=== PATIENT | female | born 1960 | race Caucasian/White ===

== ENCOUNTER 2024-08-27 20:08 | Emergency (ER) | payer MEDICAID, SELFPAY ==
[2024-08-27 20:11] VITALS: PULSE 118; RESP 22; O2SAT 97
[2024-08-27 20:17] VITALS: BP 150/89; PULSE 115; RESP 19; TEMP 36.8; O2SAT 91
--- NOTE | 2024-08-27 20:21 | XR_ITS ---
Examination: AP chest single view Technique one AP portable upright chest single view Exam date and time: August 27, 20242022 hrs. Comparison August 05, 2024 Indications: Onset shortness of breath today. Findings: Normal heart size The hilar regions are mildly prominent Accentuation bronchovascular markings at the lung bases No pulmonary edema Moderate osteopenia Impression: Suspicious for pulmonary artery hypertension Bibasilar bronchitis Advise short-term follow-up chest imaging
--- NOTE | 2024-08-27 20:21 | EKG_ITS ---
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
--- NOTE | 2024-08-27 21:09 | EDNOTE_ITS ---
ED SOB =RME/HPI General Chief Complaint: Shortness of Breath/Dyspnea Stated Complaint: SOB Time Seen by Provider: 08/27/24 21:08 Arrival date/time: 08/27/24 20:08 RME / HPI RME / HPI Narrative: DR. POND MAIN ED EVALUATION: 64 year old female presents to the Emergency Department [facility] from home with complaint of shortness of breath. Symptoms are moderate. Patient denies any chest pain or other symptoms at this time. PMHx: COPD, CHF, hypertension, atrial fibrillation, asthma, hypercholesterolemia, and diabetes. Social Hx: Former smoker. No alcohol or substance use. Related Data Home Medications ?Medication ?Instructions ?Recorded ?Confirmed methadone 10 mg/5 mL oral solution 100 mg PO QDAY 02/07/24 08/04/24 nitroglycerin 0.4 mg sublingual 0.4 mg buccal Q5MIN PRN Chest Pain 02/07/24 08/04/24 tablet spironolactone 50 mg tablet 50 mg PO QDAY 03/31/24 08/04/24 Previous Rx's ?Medication ?Instructions ?Recorded tramadol 50 mg tablet 50 mg PO Q8H PRN pain #20 tabs 04/06/24 albuterol sulfate 90 mcg/actuation 1 puff inhalation QID PRN 08/06/24 aerosol inhaler shortness of breath or wheezing #8.5 grams aspirin 81 mg tablet,delayed 81 mg PO QDAY #30 tabs 08/06/24 release buspirone 5 mg tablet 5 mg PO QDAY #30 tabs 08/06/24 fluticasone fur. 200 mcg-umeclid 1 inh inhalation QDAY #60 ea 08/06/24 62.5 mcg-vilant 25 mcg inhalat.powder (Trelegy Ellipta) furosemide 20 mg tablet (Lasix) 20 mg PO QAM #30 tabs 08/06/24 hydralazine 100 mg tablet 100 mg PO TID #90 tabs 08/06/24 lactulose 10 gram/15 mL oral 10 g (15 mL) PO QDAY PRN 08/06/24 solution constipation #3,785 mL lidocaine 5 % topical patch 1 patch topical QDAY #30 ea 08/06/24 nitroglycerin 0.4 mg sublingual See Rx Instructions .Route 08/06/24 tablet .COMPLEX PRN chest pain #30 tabs spironolactone 50 mg tablet 50 mg PO QDAY #30 tabs 08/06/24 tramadol 50 mg tablet 50 mg PO Q6H PRN pain #20 tabs 08/06/24 apixaban 5 mg (74 tabs) tablets in 5 mg PO BID #74 tabs 08/07/24 a dose pack (EliSelenokhod DVT-PE Treat 30D Start) doxycycline hyclate 100 mg capsule 100 mg PO BID #6 caps 08/07/24 insulin glargine 100 unit/mL (3 26 unit (0.26 mL) subcut QPM #15 mL 08/07/24 mL) subcutaneous pen (Basaglar KwikPen U-100 Insulin) metoprolol succinate 25 mg 25 mg PO QDAY 30 days #30 tabs 08/07/24 tablet,extended release 24 hr doxycycline monohydrate 100 mg 100 mg PO BID #10 caps 08/28/24 capsule Allergies Allergy/AdvReac Type Severity Reaction Status Date / Time codeine Allergy Severe RASH Verified 08/02/24 06:24 diphenhydramine HCl Allergy Severe Hives Verified 08/02/24 06:24 egg Allergy Severe Rash Verified 08/02/24 06:24 Penicillins Allergy Severe SWELLING, Verified 08/02/24 06:24 RESP DISTRESS pentazocine [From Evaristo] Allergy Severe Hives Verified 08/02/24 06:24 Review of Systems Review of Systems Systems Reviewed: All systems reviewed, normal except as documented Narrative Review of Systems: GEN: No fever, no chills, no weight loss EYES: No discharge, no visual changes, no pain HEENT: No ear pain, no congestion, no sore throat PULM: + shortness of breath, no cough, no congestion CV: No chest pain, no dyspnea on exertion, no palpitations GI: No nausea, no vomiting, no diarrhea, no pain, no constipation : No frequency, no urgency and no dysuria MUSC/SKEL: No joint pain, no back pain SKIN: No rash PSYCH: No hallucinations, no depression HEME/LYMPH: No easy bleeding or bruising tendencies NEURO: No weakness, no headache Past Medical History Past Medical History NEUROLOGIC: Positive Neurological Disorders and Cerebrovascular Accident CARDIAC: Positive Cardiac Disorders, Myocardial Infarction, Cardiac Arrhythmia, Atrial Fibrillation, Angina, Hypercholesterolemia, Congestive Heart Failure, Edema and Hypertension RESPIRATORY: Positive Chronic Obstructive Pulmonary Disease (COPD), Asthma, Bronchitis, Emphysema and Pneumonia MUSCULOSKELETAL: Positive Musculoskeletal Disorders and Arthritis ENT: Positive Cataracts and Blind ENDOCRINE: Positive Endocrine Disorders and Diabetes Mellitus Type 2 HEMATOLOGIC: Positive Anemia PSYCHO/SOCIAL: Positive Recreational Drug Use, Depression and Anxiety OTHER HISTORY: Positive Hospitalization and Shingles Family History FAMILY HISTORY: Positive Family Cardiac Disorders Surgical History SURGICAL: Positive Eye Surgery, Tonsillectomy and Abdominal Surgery Social History SMOKING STATUS: Former smoker SECOND HAND EXPOSURE: No SUBSTANCE USE: former substance user, heroin and methamphetamine (Former drug use, states she quit 20 years ago; tested positive for methamphetamine 03/31/2023.) ALCOHOL: Never ED Exam Narrative Physical exam: GENERAL APPEARANCE: alert and oriented x 4, well-developed, well-nourished, no acute distress VITALS: All vitals were reviewed and the pulse ox is 94% on room air, which is normal according to my interpretation. HEENT: Normocephalic, atraumatic; pupils equal, round, reactive to light; EOMI; mucous membranes pink, moist; oropharynx clear NECK: Supple LUNGS: CTABL; no wheezes, no rales, no rhonchi HEART: Regular rate, regular rhythm; normal S1, S2; no murmurs ABDOMEN: non distended; normal BS; soft, no tenderness, no guarding, no rebound; no masses, no organomegaly, no hernia BACK: no CVA tenderness EXTREMITIES: atraumatic; no edema NEUROLOGIC: awake; alert and oriented x4; cranial nerves II-XII grossly intact; no focal sensory or motor deficits PSYCHIATRIC: appropriate mood and affect SKIN: warm, dry, normal color; no rashes Course Quality Measures none Orders Category Date Time Status License Registration Examiner NOW Care 08/28/24 02:38 Completed EKG (ED ONLY) *Do not use* NOW Care 08/27/24 20:22 Completed EKG (ED Only) Stat Exams 08/27/24 20:21 Draft XR chest 1V portable Stat Exams 08/27/24 20:21 Completed B-Type Natriuretic Peptide Stat Lab 08/28/24 03:30 Completed Blood Culture (Lab) Stat Lab 08/28/24 03:30 Completed CBC Stat Lab 08/28/24 03:30 Completed Comprehensive Metabolic Panel Stat Lab 08/28/24 03:30 Completed Lactate (Lactic Acid) Stat Lab 08/28/24 03:30 Completed Lipase Stat Lab 08/28/24 03:30 Completed Magnesium Stat Lab 08/28/24 03:30 Completed Partial Thromboplastin Time Stat Lab 08/28/24 03:30 Completed Procalcitonin Stat Lab 08/28/24 03:30 Completed Prothrombin Time with INR Stat Lab 08/28/24 03:30 Completed Troponin I Stat Lab 08/28/24 03:30 Completed ALBUTEROL RT 0.5ml [Proventil Rt 0.5ml] Med 08/27/24 22:15 Discontinued 10 mg INH X1 ONE Albuterol/Ipratr Rt Blanca [Duoneb Rt Blanca] Med 08/28/24 01:32 Discontinued 3 ml INH X1 ONE Ipratropium Snelling Rt Blanca [Atrovent Rt Blanca] Med 08/27/24 22:15 Discontinued 0.5 mg INH X1 ONE MethylPREDNISolone.* [SoluMEDROL Inj] Med 08/27/24 22:15 Discontinued 125 mg IVP X1 ONE Sodium Chloride Rt Blanca 0.9% [NS Rt Blanca 0.9%] Med 08/27/24 22:15 Discontinued 3 ml INH PRN PRN Sodium Chloride Rt Blanca 0.9% [NS Rt Blanca 0.9%] Med 08/27/24 22:15 Discontinued 3 ml INH PRN PRN dexAMETHasone TAB [dexAMETHasone Tab] Med 08/27/24 23:27 Discontinued 6 mg PO X1 ONE methylPREDNISolone Med 08/27/24 22:40 Discontinued 20 mg PO X1 ONE Vital Signs Vital signs: Vital Signs Temperature 98.2 F 08/27/24 20:17 Pulse Rate 115 H 08/27/24 20:17 Respiratory Rate 19 08/27/24 20:17 Blood Pressure 150/89 H 08/27/24 20:17 Pulse Oximetry (%) 91 L 08/27/24 20:17 Oxygen Delivery Method Nasal Cannula 08/27/24 20:17 Oxygen Flow Rate 3 08/27/24 20:17 Shortness of Breath / Dyspnea MDM Narrative MDM Narrative:: IVale am scribing for and in the presence of Dr. Pond. Patient data External records reviewed:: [facility] previous records (Reviewed last gastroenterology note by Dr. Ludwig, dated 08/07/24.) and EMS form Clinical information provided by:: patient and EMS Social determinants that could affect healthcare access:: other (specify) (Former smoker.) Patient has the following chronic illnesses:: COPD, CHF, hypertension, atrial fibrillation, asthma, hypercholesterolemia, and diabetes. How is presenting disease/condition affected by chronic disease/condition?: caused by Evaluation data The following diagnostics were reviewed and interpreted by me:: lab results, radiology exam(s) and EKG tracing(s) Lab and/or radiology exams considered but not ordered:: none Interpretation Summary: Procedure(s): XR chest 1V portable Accession Number(s): [id number] cc: Acosta Kumari MD; Socorro Pond MD~ Examination: AP chest single view Technique one AP portable upright chest single view Exam date and time: August 27, 20242022 hrs. Comparison August 05, 2024 Indications: Onset shortness of breath today. Findings: Normal heart size The hilar regions are mildly prominent Accentuation bronchovascular markings at the lung bases No pulmonary edema Moderate osteopenia Impression: Suspicious for pulmonary artery hypertension Bibasilar bronchitis Advise short-term follow-up chest imaging Dictated By: Acosta Kumari MD Medications / Prescriptions Medications or Prescriptions considered but not ordered:: none Medication administrations:: Medication Administration History Discontinued Medications Albuterol (Albuterol Rt 2.5 Mg/0.5 Ml Nebu) 10 mg INH X1 ONE Stop: 08/27/24 22:16 Last Admin: 08/27/24 22:34 Dose: 10 mg Documented By: NE Albuterol/Ipratropium (Albuterol/Ipratropium (Duoneb) Rt Blanca 3 Ml Nebu) 3 ml INH X1 ONE Stop: 08/28/24 01:33 Last Admin: 08/28/24 01:46 Dose: 3 ml Documented By: NE Dexamethasone (Dexamethasone 6 Mg Tablet) 6 mg PO X1 ONE; Protocol Stop: 08/27/24 23:28 Last Admin: 08/28/24 00:49 Dose: 6 mg Documented By: GB Ipratropium Snelling (Ipratropium Rt 0.5 Mg/ 2.5 Ml Nebu) 0.5 mg INH X1 ONE Stop: 08/27/24 22:16 Last Admin: 08/27/24 22:34 Dose: 0.5 mg Documented By: NE Methylprednisolone (Methylprednisolone 4 Mg Tablet) 20 mg PO X1 ONE Stop: 08/27/24 22:41 Last Admin: 12/02/24 23:28 Dose: Not Given Documented By: AVILA Non-Admin Reason: Cancelled by Provider Methylprednisolone Sodium Succinate (Methylprednisolone Sod Succ 62.5 Mg/Ml 2ml Vial) 125 mg IVP X1 ONE Stop: 08/27/24 22:16 Last Admin: 08/27/24 22:42 Dose: Not Given Documented By: AVILA Non-Admin Reason: Discontinued Sodium Chloride (Sodium Chloride Rt Blanca 0.9% 3 Ml Nebu) 3 ml INH PRN PRN PRN Reason: SOLN Stop: 09/26/24 22:14 Sodium Chloride (Sodium Chloride Rt Blanca 0.9% 3 Ml Nebu) 3 ml INH PRN PRN PRN Reason: SOLN Stop: 09/26/24 22:14 see above Consultations Consultation(s) initiated? (list below): No Diagnosis Shortness of Breath Differential Diagnosis: congestive heart failure, community acquired pneumonia, asthma with exacerbation, pulmonary embolism and other (COPD exacerbation) Most likely diagnosis given after review of the tests above:: Bronchitis, Acute exacerbation of chronic obstructive pulmonary disease (COPD) Admission Indicated Admission indicated?: not indicated Admission Request Was there a request for admission?: No Disposition Plan Disposition Plan: Discharge Discharge Attestation Discharge Attestation: The patient and all family members were given an opportunity to ask questions and understood the discharge instructions. Discharge instructions specifically effects, indications for sooner follow up or return to the emergency department, and the expected course of current diagnosis. Patient condition: Stable Discharge Plan Plan Patient Disposition: HOME (Self Care) Prescriptions/Referrals Prescriptions/Med Rec: New doxycycline monohydrate 100 mg capsule 100 mg PO BID Qty: 10 0RF No Action spironolactone 50 mg tablet 50 mg PO QDAY Patient Comments: TAKE ONE TABLET BY MOUTH EVERY DAY tramadol 50 mg tablet 50 mg PO Q8H PRN (Reason: pain) Qty: 20 0RF hydralazine 100 mg tablet 100 mg PO TID Qty: 90 0RF albuterol sulfate 90 mcg/actuation HFA aerosol inhaler 1 puff inhalation QID PRN (Reason: shortness of breath or wheezing) Qty: 8.5 0RF aspirin 81 mg tablet,delayed release (DR/EC) 81 mg PO QDAY Qty: 30 0RF buspirone 5 mg tablet 5 mg PO QDAY Qty: 30 0RF furosemide [Lasix] 20 mg tablet 20 mg PO QAM Qty: 30 0RF lactulose 10 gram/15 mL solution 10 g PO QDAY PRN (Reason: constipation) Qty: 3785 0RF lidocaine 5 % adhesive patch,medicated 1 patch topical QDAY Qty: 30 0RF Rx Instructions: leave on most painful area for up to 12 hrs nitroglycerin 0.4 mg tablet, sublingual See Rx Instructions .ROUTE .COMPLEX PRN (Reason: chest pain) Qty: 30 0RF Rx Instructions: mg buccally as needed spironolactone 50 mg tablet 50 mg PO QDAY Qty: 30 0RF tramadol 50 mg tablet 50 mg PO Q6H MDD 4 tabs PRN (Reason: pain) Qty: 20 0RF Trelegy Ellipta 200-62.5-25 mcg blister with device 1 inh inhalation QDAY Qty: 60 0RF doxycycline hyclate 100 mg capsule 100 mg PO BID Qty: 6 0RF insulin glargine [Basaglar KwikPen U-100 Insulin] 100 unit/mL (3 mL) insulin pen 26 unit subcut QPM Qty: 15 0RF metoprolol succinate 25 mg Tablet Extended Release 24 Hr 25 mg PO QDAY 30 Days Qty: 30 0RF Eliquis DVT-PE Treat 30D Start 5 mg (74 tabs) tablets,dose pack 5 mg PO BID Qty: 74 0RF methadone 10 mg/5 mL Solution 100 mg PO QDAY nitroglycerin 0.4 mg Tablet, Sublingual 0.4 mg BUCCAL Q5MIN PRN (Reason: Chest Pain) Referrals: Apolinar Tai MD [Primary Care Provider] - In 1 week Problem List Clinical Impression: Bronchitis, Acute exacerbation of chronic obstructive pulmonary disease (COPD) Patient/Caregiver Discharge Instructions Education Materials: ED COPD Flare Print Language: Colombian Stand Alone Forms: Kaylynn Award Info., Patient Portal Info Letter
[2024-08-27 22:01] VITALS: BMI 23.8
[2024-08-27 22:23] VITALS: BP 116/78; PULSE 95; RESP 18; TEMP 36.9; O2SAT 94
[2024-08-27 22:34] VITALS: PULSE 96
[2024-08-27] MEDS: ALBUTEROL RT 2.5 MG/0.5 ML NEBU 10 MG INH (22:34)
[2024-08-27] MEDS: IPRATROPIUM RT 0.5 MG/ 2.5 ML NEBU INH (22:34)
--- NOTE | 2024-08-27 22:37 | PC.NURSE ---
RT with pt now. pt resting quietly and appears in NAD.
[2024-08-27 22:41] VITALS: PULSE 97; RESP 20; O2SAT 93
[2024-08-27 23:32] VITALS: PULSE 114; RESP 19; O2SAT 94
[2024-08-28 00:23] VITALS: BP 135/70; PULSE 110; RESP 20; TEMP 37; O2SAT 92
[2024-08-28] MEDS: dexAMETHasone 6 MG TABLET PO (00:49)
[2024-08-28 01:09] VITALS: BP 122/62; PULSE 103; RESP 16; O2SAT 90
--- NOTE | 2024-08-28 01:12 | PC.NURSE ---
Pt is asleep. arouses easily.
[2024-08-28 01:46] VITALS: PULSE 104; RESP 16; O2SAT 96
[2024-08-28] MEDS: ALBUTEROL/IPRATROPIUM (Duoneb) RT SOL 3 ML NEBU INH (01:46)
--- NOTE | 2024-08-28 02:42 | PC.NURSE ---
Pt resting quietly.
[2024-08-28 03:42] LABS: Basophils % (Auto) 0 % (0-2.5); Eosinophils % (Auto) 1 % (0-10); Hematocrit 32.5 % (36.0-46.0); Hemoglobin 10.5 g/dL (12.0-16.0); Immature Granulocytes % (Auto) 2 % (0-0); Immature Granulocytes Auto 0.15 Thou/mm3 (0.00-0.00); Lactate (Lactic Acid) 2.5 mMol/L (0.4-2.0); Lymphocytes # (Auto) 0.6 Thou/mm3 (1.0-4.8); Lymphocytes % (Auto) 7 % (10-50); Mean Corpuscular HGB Conc 32.3 g/dl (31.0-37.0); Mean Corpuscular Hemoglobin 27.9 pg (25.0-35.0); Mean Corpuscular Volume 86 fL (80-100); Monocytes # (Auto) 0.3 Thou/mm3 (0.0-0.8); Monocytes % (Auto) 3 % (0-12); Neutrophils # (Auto) 7.7 Thou/mm3 (1.8-7.7); Neutrophils % (Auto) 87 % (37-80); Nucleated Red Blood Cell % 0 /100 WBC (0); Platelet Count 225 Thou/mm3 (140-440); RDW Standard Deviation 43.4 fL (36.4-46.3); Red Blood Count 3.76 Miln/mm3 (4.00-5.20); White Blood Count 8.8 Thou/mm3 (3.6-11.0)
[2024-08-28 04:05] LABS: B-Type Natriuretic Peptide 28 pg/mL (0-100)
[2024-08-28 04:15] LABS: Alanine Aminotransferase 21 U/L (10-49); Albumin, Serum 3.8 gm/dL (3.4-4.8); Albumin/Globulin Ratio 1.6 (1.2-2.2); Alkaline Phosphatase 62 U/L (46-116); Anion Gap 9 (7-16); Aspartate Amino Transferase 23 U/L (0-34); BUN/Creatinine Ratio 14 Ratio (12-20); Bilirubin,Total 0.5 mg/dL (0.3-1.2); Blood Urea Nitrogen 23 mg/dL (9-23); Calcium 9.1 mg/dL (8.3-10.6); Calcium (Corrected) 9.3 mg/dL (8.5-10.1); Carbon Dioxide 25.3 mMol/L (20.0-31.0); Chloride 104 mMol/L (98-107); Creatinine (Component) 1.7 mg/dL (0.6-1.3); Estimated Creatinine Clearance 31.7 mL/min (>60); Globulin 2.4 gm/dL (2.3-3.5); Glucose 211 mg/dL (74-106); Lipase 23 U/L (12-53); Magnesium 2.1 mg/dL (1.6-2.6); Osmolality,Calculated 285 (275-295); Procalcitonin 0.09 ng/ml (0.0-0.49); Sodium 138 mMol/L (136-145); Total Protein 6.2 gm/dL (5.7-8.2); Troponin I < 0.020 ng/mL (0.0-0.045); eGFR 33 See Note
[2024-08-28 04:26] LABS: Prothrombin Time 10.9 Seconds (9.0-12.2)
[2024-08-28 05:00] VITALS: BP 125/73; PULSE 97; RESP 14; TEMP 36.9; O2SAT 94
--- NOTE | 2024-08-28 05:16 | PC.NURSE ---
Pt has been sleeping. arouses easily. appears in no distress.
[2024-08-28 06:17] VITALS: BP 112/60; PULSE 95; RESP 16; O2SAT 96
[2024-08-28 06:37] LABS: Reflex Lactate? Y
== END 2024-08-28 07:00 | disposition home or self-care (01) ==
PROVIDERS: Emergency Provider Emergency Medicine; PCP Family Medicine
DX: J44.1 Chronic obstructive pulmonary disease with (acute) exacerbation (principal); J44.0 Chronic obstructive pulmonary disease with (acute) lower respiratory infection; J20.9 Acute bronchitis, unspecified; R00.0 Tachycardia, unspecified; I44.4 Left anterior fascicular block; E78.00 Pure hypercholesterolemia, unspecified; Z87.891 Personal history of nicotine dependence; I11.0 Hypertensive heart disease with heart failure; I50.9 Heart failure, unspecified; I48.91 Unspecified atrial fibrillation; I25.2 Old myocardial infarction; Z79.01 Long term (current) use of anticoagulants
CPT/HCPCS: 36415; 71045; 80053; 81001; 83605; 83690; 83735; 83880; 84145; 84484; 85025; 85610; 85730; 87040; 87086; 93005; 94640; 94644; 99284; A9270; J8540

== ENCOUNTER 2024-09-26 05:27 | Inpatient (IN) | payer MEDICAID, SELFPAY ==
[2024-09-26] VITALS (18 sets, daily range): BP systolic 121–209; BP diastolic 63–113; PULSE 77–138; RESP 15–40; TEMP 36.5–36.9; O2SAT 94–97; BMI 25.0; BMI 26.4
--- NOTE | 2024-09-26 06:30 | PD.EDSOB ---
ED SOB =RME/HPI General Chief Complaint: Shortness of Breath/Dyspnea Stated Complaint: SOB Time Seen by Provider: 09/26/24 06:21 Arrival date/time: 09/26/24 05:27 RME / HPI RME / HPI Narrative: DR. POND MAIN ED EVALUATION: 64 year old female presents to the Emergency Department BIB from home with complaint of worsening shortness of breath onset 3 hours prior to arrival. Symptoms are moderate. No other symptoms reported at this time. PMHx: COPD Social Hx: Former smoker Related Data Home Medications ?Medication ?Instructions ?Recorded ?Confirmed methadone 10 mg/5 mL oral solution 100 mg PO QDAY 02/07/24 08/04/24 nitroglycerin 0.4 mg sublingual 0.4 mg buccal Q5MIN PRN Chest Pain 02/07/24 08/04/24 tablet spironolactone 50 mg tablet 50 mg PO QDAY 03/31/24 08/04/24 Previous Rx's ?Medication ?Instructions ?Recorded tramadol 50 mg tablet 50 mg PO Q8H PRN pain #20 tabs 04/06/24 albuterol sulfate 90 mcg/actuation 1 puff inhalation QID PRN 08/06/24 aerosol inhaler shortness of breath or wheezing #8.5 grams aspirin 81 mg tablet,delayed 81 mg PO QDAY #30 tabs 08/06/24 release buspirone 5 mg tablet 5 mg PO QDAY #30 tabs 08/06/24 fluticasone fur. 200 mcg-umeclid 1 inh inhalation QDAY #60 ea 08/06/24 62.5 mcg-vilant 25 mcg inhalat.powder (Trelegy Ellipta) furosemide 20 mg tablet (Lasix) 20 mg PO QAM #30 tabs 08/06/24 hydralazine 100 mg tablet 100 mg PO TID #90 tabs 08/06/24 lactulose 10 gram/15 mL oral 10 g (15 mL) PO QDAY PRN 08/06/24 solution constipation #3,785 mL lidocaine 5 % topical patch 1 patch topical QDAY #30 ea 08/06/24 nitroglycerin 0.4 mg sublingual See Rx Instructions .Route 08/06/24 tablet .COMPLEX PRN chest pain #30 tabs spironolactone 50 mg tablet 50 mg PO QDAY #30 tabs 08/06/24 tramadol 50 mg tablet 50 mg PO Q6H PRN pain #20 tabs 08/06/24 apixaban 5 mg (74 tabs) tablets in 5 mg PO BID #74 tabs 08/07/24 a dose pack (Eliquis DVT-PE Treat 30D Start) doxycycline hyclate 100 mg capsule 100 mg PO BID #6 caps 08/07/24 insulin glargine 100 unit/mL (3 26 unit (0.26 mL) subcut QPM #15 mL 08/07/24 mL) subcutaneous pen (Basaglar KwikPen U-100 Insulin) doxycycline monohydrate 100 mg 100 mg PO BID #10 caps 08/28/24 capsule Allergies Allergy/AdvReac Type Severity Reaction Status Date / Time codeine Allergy Severe RASH Verified 08/02/24 06:24 diphenhydramine HCl Allergy Severe Hives Verified 08/02/24 06:24 egg Allergy Severe Rash Verified 08/02/24 06:24 Penicillins Allergy Severe SWELLING, Verified 08/02/24 06:24 RESP DISTRESS pentazocine [From Evaristo] Allergy Severe Hives Verified 08/02/24 06:24 Review of Systems Review of Systems Systems Reviewed: All systems reviewed, normal except as documented Narrative Review of Systems: GEN: No fever, no chills, no weight loss EYES: No discharge, no visual changes, no pain HEENT: No ear pain, no congestion, no sore throat PULM: + shortness of breath, no cough, no congestion CV: No chest pain, no dyspnea on exertion, no palpitations GI: No nausea, no vomiting, no diarrhea, no pain, no constipation : No frequency, no urgency and no dysuria MUSC/SKEL: No joint pain, no back pain SKIN: No rash PSYCH: No hallucinations, no depression HEME/LYMPH: No easy bleeding or bruising tendencies NEURO: No weakness, no headache Past Medical History Past Medical History NEUROLOGIC: Positive Neurological Disorders and Cerebrovascular Accident CARDIAC: Positive Cardiac Disorders, Myocardial Infarction, Cardiac Arrhythmia, Atrial Fibrillation, Angina, Hypercholesterolemia, Congestive Heart Failure, Edema and Hypertension; Negative Varicose Veins RESPIRATORY: Positive Chronic Obstructive Pulmonary Disease (COPD), Asthma, Bronchitis, Emphysema and Pneumonia; Negative Pulmonary Fibrosis, Tuberculosis, Pulmonary Embolism, Pulmonary Edema or Sleep Apnea MUSCULOSKELETAL: Positive Musculoskeletal Disorders and Arthritis ENT: Positive Cataracts and Blind; Negative Glaucoma, Retinal Detachment, Macular Degeneration, Ear Infection, Deafness or Eye Prosthesis ENDOCRINE: Positive Endocrine Disorders and Diabetes Mellitus Type 2; Negative Diabetes Mellitus Type 1, Hypoglycemia, Santino's Syndrome, Arpit's Disease, Hyperthyroidism, Hypothyroidism, Parathyroid Disease, Pituitary Disease, Systemic Lupus Erythematosus, Syndrome of Inappropriate Antidiuretic Hormone (SIADH), Adrenal Disease or Graves' Disease HEMATOLOGIC: Positive Anemia; Negative Blood Disorders, Leukemia, Hemophilia, Thalassemia, Sickle Cell Disease or Clotting Problems PSYCHO/SOCIAL: Positive Recreational Drug Use, Depression and Anxiety; Negative Psychiatric Problems, Schizophrenia, Behavior Problems, Self-Mutilation, Attention Deficit Disorder, Attention Deficit Hyperactivity Disorder, Depression, Post Traumatic Stress Disorder or Eating Disorder OTHER HISTORY: Positive Hospitalization and Shingles; Negative Autoimmune Disease, Down Syndrome, Autism, Developmental Delay, Falls, Blood Transfusions, Blood Transfusion Reaction, Anesthesia Reactions, Organ Transplant, Chemotherapy, Radiation Therapy, MRSA, Human Immunodeficiency Virus (HIV), Chicken Pox, Measles, Mumps, Rubella (Luxembourger Measles), Pertussis, Clostridium Difficile or Cancer Family History FAMILY HISTORY: Positive Family Cardiac Disorders; Negative Family Psychiatric Problems, Family Respiratory Disorders, Family Gastrointestinal Problems, Family Cancer, Family Surgery or Family Anesthesia Reaction Surgical History SURGICAL: Positive Eye Surgery, Tonsillectomy and Abdominal Surgery; Negative Cardiac Surgery, Open Heart Surgery, Coronary Artery Bypass Graft, Valve Replacement, Vascular Surgery, Coronary Stent, Cardiac Catheterization, Pacemaker, Angiogram, Auto Implanted Cardiovert Defib, Carotid Endarterectomy, Endocrine Surgery, Thyroidectomy, Ear Surgery, Tympanostomy Tube, Nose Surgery, Oral Surgery, Adenoidectomy, Cochlear Implant, Corneal Transplant, Throat Surgery, Tracheostomy, Gastric Bypass Surgery, Gastrostomy, Bowel Surgery, Nephrectomy, Joint Replacement, Amputation, Open Reduction Internal Fixation, Arthroscopy, Neurologic Surgery, Brain Shunt, Mastectomy, Lumpectomy, Hysterectomy, Tubal Ligation, Section or Organ Transplant Social History SMOKING STATUS: Former smoker SECOND HAND EXPOSURE: No SUBSTANCE USE: former substance user, heroin and methamphetamine (Former drug use, states she quit 20 years ago; tested positive for methamphetamine 03/31/2023.) ALCOHOL: Never ED Exam Narrative Physical exam: GENERAL APPEARANCE: alert and oriented x 4, well-developed, well-nourished, no acute distress VITALS: All vitals were reviewed and the pulse ox is 96% on room air, which is normal according to my interpretation. HEENT: Normocephalic, atraumatic; pupils equal, round, reactive to light; EOMI; mucous membranes pink, moist; oropharynx clear NECK: Supple LUNGS: CTABL; no wheezes, no rales, no rhonchi HEART: Regular rate, regular rhythm; normal S1, S2; no murmurs ABDOMEN: non distended; normal BS; soft, no tenderness, no guarding, no rebound; no masses, no organomegaly, no hernia BACK: no CVA tenderness EXTREMITIES: atraumatic; no edema NEUROLOGIC: awake; alert and oriented x4; cranial nerves II-XII grossly intact; no focal sensory or motor deficits PSYCHIATRIC: appropriate mood and affect SKIN: warm, dry, normal color; no rashes Course Quality Measures none Orders Category Date Time Status Bedside COVID-19 Antigen Test NOW Care 09/26/24 08:20 Active Bedside Influenza A&B Antigen Test NOW Care 09/26/24 08:20 Completed COVID-19 Screening Questionnaire NOW Care 09/26/24 13:10 Active Emergency Preparedness Manager NOW Care 09/26/24 08:19 Active Decision to Admit X1 Care 09/26/24 13:10 Active EKG (ED ONLY) *Do not use* NOW Care 09/26/24 08:19 Completed EKG (ED Only) Stat Exams 09/26/24 08:19 Draft XR chest 1V portable Stat Exams 09/26/24 08:19 Completed ABG [Arterial Blood Gas] Stat Lab 09/26/24 10:22 Completed B-Type Natriuretic Peptide Stat Lab 09/26/24 10:27 Completed Blood Culture (Lab) Stat Lab 09/26/24 10:27 Received CBC Stat Lab 09/26/24 10:27 Completed Comprehensive Metabolic Panel Stat Lab 09/26/24 10:27 Completed Lactate (Lactic Acid) Stat Lab 09/26/24 10:27 Completed Lipase Stat Lab 09/26/24 10:27 Completed Magnesium Stat Lab 09/26/24 10:27 Completed Partial Thromboplastin Time Stat Lab 09/26/24 10:27 Completed Procalcitonin Stat Lab 09/26/24 10:27 Completed Prothrombin Time with INR Stat Lab 09/26/24 10:27 Completed Troponin I Stat Lab 09/26/24 10:27 Completed Urinalysis Stat Lab 09/26/24 10:30 Completed Urine Culture Stat Lab 09/26/24 10:30 Received ALBUTEROL RT 0.5ml [Proventil Rt 0.5ml] Med 09/26/24 08:00 Discontinued 10 mg INH X1 ONE Albuterol/Ipratr Rt Blanca [Duoneb Rt Blanca] Med 09/26/24 06:22 Discontinued 3 ml INH X1 ONE Azithromycin Inj [Zithromax Inj] 500 mg Med 09/26/24 09:46 Discontinued Sodium Chloride 0.9% 250 ml [Ns] 250 ml IV X1 Ipratropium [place] Rt Blanca [Atrovent Rt Blanca] Med 09/26/24 08:00 Discontinued 0.5 mg INH X1 ONE Magnesium Sulfate 2 GM Ivpb [Magnesium Sulfate Ivpb] Med 09/26/24 10:06 Discontinued 2 gm in 50 ml IV X1 MethylPREDNISolone.* [SoluMEDROL Inj] Med 09/26/24 09:48 Discontinued 125 mg IVP X1 ONE Sodium Chloride 0.9% 1000 ml [Ns] 1,000 ml Med 09/26/24 09:57 Discontinued IV 999 mls/hr Sodium Chloride 0.9% 1000 ml [Ns] 1,000 ml Med 09/26/24 09:58 Discontinued IV 999 mls/hr Sodium Chloride Rt Blanca 0.9% [NS Rt Blanca 0.9%] Med 09/26/24 08:00 Active 3 ml INH PRN PRN Sodium Chloride Rt Blanca 0.9% [NS Rt Blanca 0.9%] Med 09/26/24 08:00 Active 3 ml INH PRN PRN cefTRIAXone [Rocephin] 1,000 mg Med 09/26/24 09:46 Discontinued Sodium Chloride 0.9% (P) [Ns 0.9% (P)] 50 ml IV X1 cloNIDine HCL [Catapres] Med 09/26/24 06:22 Discontinued 0.2 mg PO X1 ONE dexAMETHasone TAB [Decadron Tab] Med 09/26/24 07:03 Discontinued 4 mg PO X1 ONE BiPAP / CPAP NOW RT 09/26/24 09:52 Active Vital Signs Vital signs: Vital Signs Temperature 98.4 F 09/26/24 05:47 Pulse Rate 109 H 09/26/24 05:47 Respiratory Rate 20 09/26/24 05:47 Blood Pressure 202/106 H 09/26/24 05:47 Pulse Oximetry (%) 96 09/26/24 05:47 Oxygen Delivery Method Room Air 09/26/24 05:47 Procedures -ED Procedure Comment Ultrasound Guided IV Line Placement PROCEDURE NOTE: IV Placement under Ultrasound Guidance Indication: IV access required. Multiple attempts at peripheral IV placement were made by the nursing staff without success Procedure: The area was prepped in the usual fashion. The R and L AC IV locations were cannulated with a 18 gauge angiocath with use of dynamic ultrasound to identify the vein. The patient tolerated the procedure well. Complications: none Shortness of Breath / Dyspnea MDM Narrative MDM Narrative:: Vale Fuller am scribing for and in the presence of Dr. Pond. Patient data External records reviewed:: [facility] previous records (Reviewed last ED visit dated 08/28/24, discharged with the following: Acute exacerbation of COPD.) Clinical information provided by:: patient Social determinants that could affect healthcare access:: other (specify) (Former smoker) Patient has the following chronic illnesses:: COPD How is presenting disease/condition affected by chronic disease/condition?: exacerbated by Evaluation data The following diagnostics were reviewed and interpreted by me:: lab results, radiology exam(s) and EKG tracing(s) (sinus tachycardia, rate 138, left axis deviation,) Lab and/or radiology exams considered but not ordered:: none Interpretation Summary: Procedure(s): XR chest 1V portable Accession Number(s): [id number] cc: Apolinar Tai MD; Acosta Kumari MD; Socorro Pond MD~ Examination: AP chest single view Technique one AP portable upright chest single view Exam date and time: September 26, 2019 0529 hrs. Indications: Chest pain today Findings: Early bilateral perihilar bibasilar pneumonia Normal heart size Prominent osteopenia Impression: Early bilateral perihilar bibasilar pneumonia Dictated By: Acosta Kumari MD Medications / Prescriptions Medications or Prescriptions considered but not ordered:: none Medication administrations:: Medication Administration History Sodium Chloride (Sodium Chloride Rt Blanca 0.9% 3 Ml Nebu) 3 ml INH PRN PRN PRN Reason: SOLN Stop: 10/26/24 07:59 Last Admin: 09/26/24 08:06 Dose: 3 ml Documented By: Sodium Chloride (Sodium Chloride Rt Blanca 0.9% 3 Ml Nebu) 3 ml INH PRN PRN PRN Reason: SOLN Stop: 10/26/24 07:59 Discontinued Medications Albuterol (Albuterol Rt 2.5 Mg/0.5 Ml Nebu) 10 mg INH X1 ONE Stop: 09/26/24 08:01 Last Admin: 09/26/24 08:05 Dose: 10 mg Documented By: MR Albuterol/Ipratropium (Albuterol/Ipratropium (Duoneb) Rt Blanca 3 Ml Nebu) 3 ml INH X1 ONE Stop: 09/26/24 06:23 Last Admin: 09/26/24 07:13 Dose: 3 ml Documented By: MR Clonidine (Clonidine Hcl 0.1 Mg Tablet) 0.2 mg PO X1 ONE Stop: 09/26/24 06:23 Last Admin: 09/26/24 06:41 Dose: 0.2 mg Documented By: NICK Dexamethasone (Dexamethasone 4 Mg Tablet) 4 mg PO X1 ONE; Protocol Stop: 09/26/24 07:04 Last Admin: 09/26/24 07:20 Dose: 4 mg Documented By: BHARAT Azithromycin 500 mg/ Sodium (Chloride) 250 mls @ 250 mls/hr IV X1 ONE Stop: 09/26/24 10:45 Last Infusion: 09/26/24 13:34 Dose: Infused Documented By: Admin: 09/26/24 12:01 Dose: 250 mls/hr Documented By: BHARAT Ceftriaxone Sodium 1,000 mg/ (Sodium Chloride) 50 mls @ 100 mls/hr IV X1 ONE Stop: 09/26/24 10:15 Last Infusion: 09/26/24 12:01 Dose: Infused Documented By: Admin: 09/26/24 11:28 Dose: 100 mls/hr Documented By: BHARAT Sodium Chloride (Ns) 1,000 mls @ 999 mls/hr IV .Q1H1M ONE Stop: 09/26/24 10:57 Last Infusion: 09/26/24 11:15 Dose: Infused Documented By: Admin: 09/26/24 09:58 Dose: 999 mls/hr Documented By: BHARAT Sodium Chloride (Ns) 1,000 mls @ 999 mls/hr IV .Q1H1M ONE Stop: 09/26/24 10:58 Last Admin: 09/26/24 09:58 Dose: Not Given Documented By: BHARAT Non-Admin Reason: Duplicate Medication on eMAR Magnesium Sulfate (Magnesium Sulfate Ivpb) 2 gm in 50 mls @ 25 mls/hr IV X1 ONE Stop: 09/26/24 12:05 Last Infusion: 09/26/24 11:00 Dose: Infused Documented By: Admin: 09/26/24 10:17 Dose: 25 mls/hr Documented By: BHARAT Ipratropium [place] (Ipratropium Rt 0.5 Mg/ 2.5 Ml Nebu) 0.5 mg INH X1 ONE Stop: 09/26/24 08:01 Last Admin: 09/26/24 08:05 Dose: 0.5 mg Documented By: Methylprednisolone Sodium Succinate (Methylprednisolone Sod Succ 62.5 Mg/Ml 2ml Vial) 125 mg IVP X1 ONE Stop: 09/26/24 09:49 Last Admin: 09/26/24 10:05 Dose: 125 mg Documented By: BHARAT see above Consultations Consultation(s) initiated? (list below): Yes Consultation #1 (Physician, Specialty, Details): Discussed test HPI, PMHx, lab, radiology results and/or management with hospitalist. Will admit for further evaluation and management. Accepts patient for admission. Time: 13:10 Diagnosis Shortness of Breath Differential Diagnosis: acute exacerbation of chronic obstructive airways disease, community acquired pneumonia, asthma with exacerbation and pulmonary embolism Most likely diagnosis given after review of the tests above:: As noted below. Admission Indicated Admission indicated?: indicated Admission Request Was there a request for admission?: Yes Admission Attestation Admission request attestation: Discussed case with [] from Hospitalist service regarding admission. Discussed patients ED course, exam findings, labs, and radiology results. The Hospitalist [agrees,declines] to accept the patient for admission. Disposition Plan Disposition Plan: Admit Discharge Plan Plan Patient Disposition: Admit Acute Care w/in Hospital Prescriptions/Referrals Prescriptions/Med Rec: No Action spironolactone 50 mg tablet 50 mg PO QDAY Patient Comments: TAKE ONE TABLET BY MOUTH EVERY DAY tramadol 50 mg tablet 50 mg PO Q8H PRN (Reason: pain) Qty: 20 0RF hydralazine 100 mg tablet 100 mg PO TID Qty: 90 0RF albuterol sulfate 90 mcg/actuation HFA aerosol inhaler 1 puff inhalation QID PRN (Reason: shortness of breath or wheezing) Qty: 8.5 0RF aspirin 81 mg tablet,delayed release (DR/EC) 81 mg PO QDAY Qty: 30 0RF buspirone 5 mg tablet 5 mg PO QDAY Qty: 30 0RF furosemide [Lasix] 20 mg tablet 20 mg PO QAM Qty: 30 0RF lactulose 10 gram/15 mL solution 10 g PO QDAY PRN (Reason: constipation) Qty: 3785 0RF lidocaine 5 % adhesive patch,medicated 1 patch topical QDAY Qty: 30 0RF Rx Instructions: leave on most painful area for up to 12 hrs nitroglycerin 0.4 mg tablet, sublingual See Rx Instructions .ROUTE .COMPLEX PRN (Reason: chest pain) Qty: 30 0RF Rx Instructions: mg buccally as needed spironolactone 50 mg tablet 50 mg PO QDAY Qty: 30 0RF tramadol 50 mg tablet 50 mg PO Q6H MDD 4 tabs PRN (Reason: pain) Qty: 20 0RF Trelegy Ellipta 200-62.5-25 mcg blister with device 1 inh inhalation QDAY Qty: 60 0RF doxycycline hyclate 100 mg capsule 100 mg PO BID Qty: 6 0RF insulin glargine [Basaglar KwikPen U-100 Insulin] 100 unit/mL (3 mL) insulin pen 26 unit subcut QPM Qty: 15 0RF Eliquis DVT-PE Treat 30D Start 5 mg (74 tabs) tablets,dose pack 5 mg PO BID Qty: 74 0RF doxycycline monohydrate 100 mg capsule 100 mg PO BID Qty: 10 0RF methadone 10 mg/5 mL Solution 100 mg PO QDAY nitroglycerin 0.4 mg Tablet, Sublingual 0.4 mg BUCCAL Q5MIN PRN (Reason: Chest Pain) Referrals: Apolinar Tai MD [Primary Care Provider] - In 1 week Patient/Caregiver Discharge Instructions Print Language: Afghan Stand Alone Forms: Kaylynn Award Info., Patient Portal Info Letter
[2024-09-26] MEDS: cloNIDine HCL 0.1 MG TABLET 0.2 MG PO (06:41)
[2024-09-26] MEDS: ALBUTEROL/IPRATROPIUM (Duoneb) RT SOL 3 ML NEBU INH (07:13)
--- NOTE | 2024-09-26 07:17 | PC.NURSE ---
Report received from pm nurse, patient from home to er with c/o increased sob for approx. 3-4 hrs, patient has h/o copd and uses 02 at home at 2l/nc continuously, RT at bedside to give nebulizer tx. new orders received, call llight within reach.
[2024-09-26] MEDS: dexAMETHasone 4 MG TABLET PO (07:20)
--- NOTE | 2024-09-26 07:56 | PC.NURSE ---
Patient states she still feels short of breath after nebulizer tx and aministration of medication, also, bp 203/108, Dr. Pond made aware
--- NOTE | 2024-09-26 08:00 | PC.NURSE ---
Patient c/o feeling sever sob, patient placed in high varma's position, RT at bedside, Dr. Pond made aware.
[2024-09-26] MEDS: ALBUTEROL RT 2.5 MG/0.5 ML NEBU 10 MG INH (08:05)
[2024-09-26] MEDS: IPRATROPIUM RT 0.5 MG/ 2.5 ML NEBU INH (08:05)
[2024-09-26] MEDS: SODIUM CHLORIDE RT SOL 0.9% 3 ML NEBU INH (08:06)
--- NOTE | 2024-09-26 08:19 | XR_ITS ---
Examination: AP chest single view Technique one AP portable upright chest single view Exam date and time: September 26, 2019 0529 hrs. Indications: Chest pain today Findings: Early bilateral perihilar bibasilar pneumonia Normal heart size Prominent osteopenia Impression: Early bilateral perihilar bibasilar pneumonia
--- NOTE | 2024-09-26 08:19 | EKG_ITS ---
[facility] Test Date: 2024-09-26 Pat Name: DISHA ABRAHAM Department: Room: - Gender: Female Call Box Wirer: : 1960 Requested By: Socorro Nova Order Number: [id number] Reading MD: Socorro Nova Measurements Intervals [place] Rate: 138 P: 70 RI: 136 QRS: -29 QRSD: 91 T: 71 QT: 290 QTc: 441 Interpretive Statements SINUS TACHYCARDIA BORDERLINE LEFT AXIS DEVIATION [QRS AXIS < -20] ABNORMAL RHYTHM ECG Compared to ECG 08/27/2024 20:39:21 Left anterior fascicular block no longer present /store/S0/[id number].pdf
--- NOTE | 2024-09-26 08:40 | PC.NURSE ---
bp 177/102, Dr. Pond made aware.
--- NOTE | 2024-09-26 09:12 | PC.NURSE ---
unable to obtain ivl x 6, Dr Pond made aware, u/s placed at bedside per Dr. Pond's request.
--- NOTE | 2024-09-26 09:15 | PC.NURSE ---
called lab to come to er to draw labs
--- NOTE | 2024-09-26 09:28 | PC.NURSE ---
Patient having increased sob, dr. cano at bedside.
--- NOTE | 2024-09-26 09:50 | PC.NURSE ---
RT at bedside to place patient on bipap on 50% 02
[2024-09-26] MEDS: SODIUM CHLORIDE 0.9% 1000 ML 1,000 ML 999 ML IV (09:58)
[2024-09-26] MEDS: MethylPREDNISolone SOD SUCC 62.5 MG/ML 2ML VIAL 125 MG IVP (10:05)
--- NOTE | 2024-09-26 10:07 | PC.NURSE ---
called lab to come to er to draw patient
[2024-09-26] MEDS: Magnesium Sulfate 2 GM Ivpb 2 GM/50 ML BAG IV (10:17)
[2024-09-26 10:28] LABS: Base Excess 2 (-3-3); HCO3 27 mEq/L (20-26); O2 Saturation 96 % (91-98); PCO2 42 mmHg (32.0-48.0); PO2 75 mmHg (83-108); pH, Arterial 7.41 (7.35-7.45)
[2024-09-26 10:29] LABS: Inspired Oxygen, FIO2 39 %
[2024-09-26 10:32] LABS: Allen Test Not Performed; Puncture Site Left Radial
[2024-09-26 10:46] LABS: Collection Type, Urine Clean Catch
[2024-09-26 10:46] LABS: Lactate (Lactic Acid) 1.6 mMol/L (0.4-2.0)
[2024-09-26 10:49] LABS: Basophils % (Auto) 0 % (0-2.5); Eosinophils % (Auto) 0 % (0-10); Hematocrit 35.5 % (36.0-46.0); Hemoglobin 11.6 g/dL (12.0-16.0); Immature Granulocytes % (Auto) 0 % (0-0); Immature Granulocytes Auto 0.05 Thou/mm3 (0.00-0.00); Lymphocytes # (Auto) 0.3 Thou/mm3 (1.0-4.8); Lymphocytes % (Auto) 2 % (10-50); Mean Corpuscular HGB Conc 32.7 g/dl (31.0-37.0); Mean Corpuscular Hemoglobin 27.8 pg (25.0-35.0); Mean Corpuscular Volume 85 fL (80-100); Monocytes # (Auto) 0.5 Thou/mm3 (0.0-0.8); Monocytes % (Auto) 3 % (0-12); Neutrophils # (Auto) 12.8 Thou/mm3 (1.8-7.7); Neutrophils % (Auto) 94 % (37-80); Nucleated Red Blood Cell % 0 /100 WBC (0); Platelet Count 230 Thou/mm3 (140-440); RDW Standard Deviation 42.9 fL (36.4-46.3); Red Blood Count 4.17 Miln/mm3 (4.00-5.20); White Blood Count 13.6 Thou/mm3 (3.6-11.0)
[2024-09-26 10:53] LABS: Bacteria,Urine Rare; Bilirubin,Urine Negative (Negative); Blood,Urine 3+ (Negative); Color,Urine Lt-Yellow (Lt Yel-Yel); Glucose, Urine Negative (Negative); Hyaline Casts,Urine < 1 /hpf (0-1); Ketones,Urine Negative (Negative); Leukocyte Esterase,Urine Positive (Negative); Nitrite,Urine Negative (Negative); Protein,Urine 2+ (Neg - Trace); RBC,Urine 189 /hpf (0-3); Specific Gravity,Urine 1.017 (1.001-1.035); Squamous Epithelial Cell,Urine 3 /hpf (0-5); Urobilinogen,Urine Negative mg/dL (0.0-1.0); WBC,Urine 72 /hpf (0-5)
[2024-09-26 11:08] LABS: Partial Thromboplastin Time 23.4 Seconds (22.0-36.0); Prothrombin Time 10.9 Seconds (9.0-12.2)
[2024-09-26 11:18] LABS: B-Type Natriuretic Peptide 41 pg/mL (0-100)
[2024-09-26 11:23] LABS: Alanine Aminotransferase 16 U/L (10-49); Albumin, Serum 4.1 gm/dL (3.4-4.8); Albumin/Globulin Ratio 1.6 (1.2-2.2); Alkaline Phosphatase 58 U/L (46-116); Anion Gap 8 (7-16); Aspartate Amino Transferase 19 U/L (0-34); BUN/Creatinine Ratio 14 Ratio (12-20); Bilirubin,Total 0.6 mg/dL (0.3-1.2); Blood Urea Nitrogen 15 mg/dL (9-23); Calcium 9.5 mg/dL (8.3-10.6); Calcium (Corrected) 9.5 mg/dL (8.5-10.1); Carbon Dioxide 24.1 mMol/L (20.0-31.0); Chloride 105 mMol/L (98-107); Creatinine (Component) 1.1 mg/dL (0.6-1.3); Estimated Creatinine Clearance 47.1 mL/min (>60); Globulin 2.6 gm/dL (2.3-3.5); Glucose 231 mg/dL (74-106); Lipase 22 U/L (12-53); Magnesium 1.5 mg/dL (1.6-2.6); Osmolality,Calculated 281 (275-295); Potassium 3.8 mMol/L (3.4-5.1); Procalcitonin 0.65 ng/ml (0.0-0.49); Sodium 137 mMol/L (136-145); Total Protein 6.7 gm/dL (5.7-8.2); Troponin I < 0.020 ng/mL (0.0-0.045); eGFR 56 See Note
[2024-09-26] MEDS: cefTRIAXone 1,000 MG in SODIUM CHLORIDE 0.9% (P) 50 ML 100 MG IV (11:28)
[2024-09-26 11:48] LABS: Clarity,Urine Hazy (Clear/Hazy)
[2024-09-26] MEDS: AZITHROMYCIN INJ 500 MG in SODIUM CHLORIDE 0.9% 250 ML 250 ML 250 MG IV (12:01)
--- NOTE | 2024-09-26 14:19 | PD.RESEVENT ---
Documentation for date of: 09/26/24 Event Note Event Note: ICU team was called discussed possibility of adding meds to ICU. Evaluated patient at bedside, patient was alert and oriented, using BiPAP. ABG results showed pH 7.41, pCO2 42, pO2 75. Patient did not require ICU level management at this time. Recommended steroids, albuterol treatments, recommended ED give 2 g magnesium over [address] was [address] Dr[address] Callahan remains available for pulmonary consult if needed by floor team. Cristian Landaverde MD PGY-1
--- NOTE | 2024-09-26 15:04 | PC.CC ---
ASWSadie attempted to complete initial assessment with patient; however patient is unable to engage as she is on Bi-Pap. ASW attempted to make telephone contact with patient's next of kin Mary Anne Diaz but her phone is not taking calls and the son Patria Diaz phone went to voicemail.
--- NOTE | 2024-09-26 20:54 | PD.EDADDENDU ---
Emergency Room Addendum Addendum Narrative: 2053: Spoke with the Hospitalist service, who accepts the patient for admission. Of note, this patient was not signed out to me.
--- NOTE | 2024-09-26 22:37 | PC.NURSE ---
REPORT GIVEN TO JINA GRAY AT [facility].
--- NOTE | 2024-09-26 22:56 | ESHP_ITS ---
Documentation for date of: 09/26/24 HPI History of Present Illness Chief complaint: Difficulty in breathing History of present illness: Patient is on BiPAP at the time of history taking and examination. Limited history was taken due to BiPAP insitu Ms. Christina Diaz is a 64y/o female with a past medical history of hypertension, COPD on 2L home oxygen, insulin-dependent type 2 diabetes, history of pulmonary embolism, history of Takotsubo cardiomyopathy, paroxysmal atrial fibrillation, and substance use disorder on methadone, recurrent hospital admissions for congestive heart failure and COPD exacerbation who lives at home with her friend was brought to the hospital in ambulance with chief complaints of shortness of breath and generalized weakness. Patient reported that she is feeling shortness of breath and overall generalized weakness since 1 day before the day of admission. Patient endorsed that she continue to use oxygen 2 L at home and compliant with other medications. Patient at her normal baseline had cough. Denies fever, worsening of cough, nausea, vomiting, abdominal pain, burning micturition. Denies palpitations, lower extremity swelling. Patient also stated that she had a history of fall without any loss of consciousness and sustained injury to right lower extremity but denies any limitation of movements. As patient is feeling overall ill, ambulance was called by her friend following which patient was brought to the hospital. In the ED, ICU was consulted initially and the resident along with Dr. Callahan recommended that the patient did not require ICU level of care and recommended to contact the team on floor. Patient was initially on oxygen through nasal cannula 3 L in the ED, later patient was started on BiPAP around 9:30 AM, reason unknown. ABG showed pCO2 within normal limits. ED Course: -Initial vitals were blood pressure 202/106 mmHg, pulse rate 109/min, respiratory rate 20/min, temperature 98.4 ?F, SpO2 96% on 3 L oxygen through nasal cannula -Labs significant for WBC 13.6, Hb 11.6, CMP is within normal limits except for slightly elevated glucose 231, magnesium is 1.5. Troponins are within normal range. Procalcitonin 0.65. Urine analysis showed 2+ proteinuria, 3+ blood, 189 RBC, 72 WBC. Chest x-ray showed bilateral moderate vascular congestion in the basal areas with no consolidation found. EKG showed sinus tachycardia. -In the ED, patient was given steroids, clonidine, breathing treatments, ceftriaxone, azithromycin and IV fluids. 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 Allergies: Penicillin, eggs, codeine, diphenhydramine, Pentazocine Review of Systems Review of Systems Narrative Review of Systems: Constitutional: No Weight Change, No Fever, No Chills, No Night Sweats, Fatigue, Malaise ENT/Mouth: No Hearing Changes, No Ear Pain, No Nasal Congestion, No Sinus Pain, No Hoarseness, No sore throat, No Rhinorrhea, No Swallowing Difficulty Eyes: No Eye Pain, No Swelling, No Redness, No Foreign Body, No Discharge, No Vision Changes Cardiovascular: No Chest Pain, SOB, No PND, No Dyspnea on Exertion, No Orthopnea, No Edema, No Palpitations Respiratory: Cough, No Sputum, No Wheezing, No Dyspnea Gastrointestinal: No Nausea, No Vomiting, No Diarrhea, No Constipation, No Pain, No Heartburn, No Anorexia, No Dysphagia, No Hematochezia, No Melena, No Flatulence, No Jaundice Genitourinary: No Dysuria, No Urinary Frequency, No Hematuria, No Urinary Incontinence, No Urgency, No Flank Pain, No Urinary Flow Changes, No Hesitancy Musculoskeletal: No Arthralgias, No Myalgias, No Joint Swelling, No Joint Stiffness, No Back Pain, No Neck Pain, endorsed history of fall and injury to left hip Skin: No Skin Lesions, No Pruritis Neuro: No Weakness, No Numbness, No Paresthesias, No Loss of Consciousness, No Syncope, No Dizziness, No Headache, No Coordination Changes, Recent Fall on right hip Exam Vital Signs Temp Pulse Resp BP Pulse Ox O2 Del Method O2 Flow Rate 97.7 F 78 15 141/72 H 95 Nasal Cannula 3 09/26/24 17:00 09/26/24 21:47 09/26/24 21:47 09/26/24 21:47 09/26/24 21:47 09/26/24 21:47 09/26/24 21:47 FiO2 35 09/26/24 19:34 Narrative Exam General: Awake. Sitting on the bed with BiPAP HEENT: Normocephalic, atraumatic, mucous membranes moist. Heart: Regular rate and rhythm, no murmurs. Lungs: Clear to auscultation with no wheezing or crackles. Abdomen: Soft, nondistended, nontender, positive bowel sounds. ?No guarding or rebound tenderness. Neurologic: Alert and oriented x3, no gross neurological deficit, and patient able to move all 4 extremities. Extremities: No edema. Skin: No rash. Bruise is noted on right lateral and posterior part of upper thigh secondary to fall Results: Labs 09/26/24 10:27 09/26/24 10:27 Labs: Short CBC 09/26/24 Range/Units 10:27 WBC 13.6 H (3.6-11.0) Thou/mm3 Hgb 11.6 L (12.0-16.0) g/dL Hct 35.5 L (36.0-46.0) % Plt Count 230 (140-440) Thou/mm3 BMP 09/26/24 10:27 Sodium 137 Potassium 3.8 Chloride 105 Carbon Dioxide 24.1 BUN 15 Creatinine 1.1 Glucose 231 H Calcium 9.5 Cardiac Enzymes 09/26/24 Range/Units 10:27 Troponin I < 0.020 (0.0-0.045) ng/mL Liver Function 09/26/24 Range/Units 10:27 Total Bilirubin 0.6 (0.3-1.2) mg/dL AST 19 (0-34) U/L ALT 16 (10-49) U/L Alkaline Phosphatase 58 (46-116) U/L Albumin 4.1 (3.4-4.8) gm/dL Urine 09/26/24 Range/Units 10:30 Urine Color Lt-Yellow (Lt Yel-Yel) Urine Clarity Hazy (Clear/Hazy) Urine pH 6.0 (5.0-7.0) Ur Specific [place] 1.017 (1.001-1.035) Urine Protein 2+ A (Neg - Trace) Urine Glucose (UA) Negative (Negative) ABG Interpretation ABG results: 09/26/24 10:22 ABG pH 7.41 ABG pCO2 42 ABG pO2 75 L ABG HCO3 27 H ABG O2 Saturation 96 ABG Base Excess 2 Quality Measures Quality Measures none Medications Home Medications and Allergies Home Medications ?Medication ?Instructions ?Recorded ?Confirmed ?Type methadone 10 mg/5 mL oral solution 100 mg PO QDAY 02/07/24 08/04/24 History nitroglycerin 0.4 mg sublingual 0.4 mg buccal Q5MIN PRN Chest Pain 02/07/24 08/04/24 History tablet spironolactone 50 mg tablet 50 mg PO QDAY 03/31/24 08/04/24 History Allergies Allergy/AdvReac Type Severity Reaction Status Date / Time codeine Allergy Severe RASH Verified 08/02/24 06:24 diphenhydramine HCl Allergy Severe Hives Verified 08/02/24 06:24 egg Allergy Severe Rash Verified 08/02/24 06:24 Penicillins Allergy Severe SWELLING, Verified 08/02/24 06:24 RESP DISTRESS pentazocine [From Evaristo] Allergy Severe Hives Verified 08/02/24 06:24 Visit Medications Acetaminophen (Acetaminophen 325 Mg Tablet) 650 mg PO Q6H PRN PRN Reason: Fever >101.5 Stop: 10/26/24 21:29 Albuterol/Ipratropium (Albuterol/Ipratropium (Duoneb) Rt [place] 3 Ml Nebu) 3 ml INH Q6HRRT [facility] Stop: 10/27/24 00:59 Magnesium Hydroxide (Milk Of Magnesia Susp 30 Ml Udc) 30 ml PO QDAY PRN; Protocol PRN Reason: CONSTIPATION Stop: 10/26/24 21:29 Ondansetron HCl (Ondansetron Inj 2 Mg/Ml Inj 2 Ml) 4 mg IV Q6H PRN; Protocol PRN Reason: NAUSEA OR VOMITING Stop: 10/26/24 21:29 Pantoprazole Sodium (Pantoprazole Inj 40 Mg Vial) 40 mg IVP QDAY [facility] Stop: 10/27/24 08:59 Sodium Chloride (Sodium Chloride Rt [place] 0.9% 3 Ml Nebu) 3 ml INH PRN PRN PRN Reason: SOLN Stop: 10/26/24 07:59 Last Admin: 09/26/24 08:06 Dose: 3 ml Sodium Chloride (Sodium Chloride Rt [place] 0.9% 3 Ml Nebu) 3 ml INH PRN PRN PRN Reason: SOLN Stop: 10/26/24 07:59 Discontinued Medications Albuterol (Albuterol Rt 2.5 Mg/0.5 Ml Nebu) 10 mg INH X1 ONE Stop: 09/26/24 08:01 Last Admin: 09/26/24 08:05 Dose: 10 mg Albuterol/Ipratropium (Albuterol/Ipratropium (Duoneb) Rt [place] 3 Ml Nebu) 3 ml INH X1 ONE Stop: 09/26/24 06:23 Last Admin: 09/26/24 07:13 Dose: 3 ml Clonidine (Clonidine Hcl 0.1 Mg Tablet) 0.2 mg PO X1 ONE Stop: 09/26/24 06:23 Last Admin: 09/26/24 06:41 Dose: 0.2 mg Dexamethasone (Dexamethasone 4 Mg Tablet) 4 mg PO X1 ONE; Protocol Stop: 09/26/24 07:04 Last Admin: 09/26/24 07:20 Dose: 4 mg Azithromycin 500 mg/ Sodium (Chloride) 250 mls @ 250 mls/hr IV X1 ONE Stop: 09/26/24 10:45 Last Infusion: 09/26/24 13:34 Dose: Infused Ceftriaxone Sodium 1,000 mg/ (Sodium Chloride) 50 mls @ 100 mls/hr IV X1 ONE Stop: 09/26/24 10:15 Last Infusion: 09/26/24 12:01 Dose: Infused Sodium Chloride (Ns) 1,000 mls @ 999 mls/hr IV .Q1H1M ONE Stop: 09/26/24 10:57 Last Infusion: 09/26/24 11:15 Dose: Infused Sodium Chloride (Ns) 1,000 mls @ 999 mls/hr IV .Q1H1M ONE Stop: 09/26/24 10:58 Last Admin: 09/26/24 09:58 Dose: Not Given Magnesium Sulfate (Magnesium Sulfate Ivpb) 2 gm in 50 mls @ 25 mls/hr IV X1 ONE Stop: 09/26/24 12:05 Last Infusion: 09/26/24 11:00 Dose: Infused Ipratropium [place] (Ipratropium Rt 0.5 Mg/ 2.5 Ml Nebu) 0.5 mg INH X1 ONE Stop: 09/26/24 08:01 Last Admin: 09/26/24 08:05 Dose: 0.5 mg Methylprednisolone Sodium Succinate (Methylprednisolone Sod Succ 62.5 Mg/Ml 2ml Vial) 125 mg IVP X1 ONE Stop: 09/26/24 09:49 Last Admin: 09/26/24 10:05 Dose: 125 mg Assessment & Plan Plan Ms. Christina Diaz is a 64y/o female with a past medical history of hypertension, COPD on 2L home oxygen, insulin-dependent type 2 diabetes, history of pulmonary embolism, history of Takotsubo cardiomyopathy, paroxysmal atrial fibrillation, and substance use disorder on methadone, recurrent hospital admissions for congestive heart failure and COPD exacerbation who lives at home with her friend was brought to the hospital in ambulance with chief complaints of shortness of breath and generalized weakness and admitted in the hospital for acute on chronic hypoxic respiratory failure secondary to pulmonary edema due to hypertensive emergency # Acute on chronic hypoxic respiratory failure # Bilateral pulmonary edema, Acute left ventricular failure # Hypertensive emergency # Uncontrolled hypertension -Patient had history of heart failure and have recurrent admissions for exacerbation of COPD and CHF. Using 2 L oxygen through nasal cannula at home -Patient endorsed that she is in her usual state of health till the day of admission. -On the day of admission, patient noted to have generalized weakness, feeling well and shortness of breath despite using 2 L oxygen. -Denies fever, palpitations, chest pain, nausea, vomiting, abdominal pain, burning micturition -On admission to the ED patient was found to have blood pressure of 202/106 mmHg, pulse rate 109/min,SpO2 96% with 3 L oxygen. -Per chart review, patient was noted to have crackles when evaluated by RT. Lungs sounded clear when hospitalist team examined the patient -Patient was initially started on oxygen through nasal cannula, later as the patient is found to have shortness of breath and had bilateral crackles on examination by the RT, patient was started on BiPAP -ABG showed normal pCO2 and pH. ICU team was consulted initially and they recommended continued BiPAP treatment and recommended to refer to the floor team for further management as the patient does not require higher level of care. -Labs are significant for WBC 13.6, Hb 11.6, sodium 137, potassium 3.8, BUN 15, creatinine 1.1, magnesium 1.5, procalcitonin 0.65 -In the ED, patient received 0.2 Mg clonidine, breathing treatments, started on BiPAP, received a dose of steroid, ceftriaxone Plan -Started patient on low-sodium diet -Supplemented with 4 g of magnesium -Patient is using furosemide, spironolactone, clonidine and hydralazine at home. -Medication reconciliation is ordered. Resume medications later as needed -Started on losartan 50 Mg p.o. daily and furosemide 20 Mg i.v daily -Strict control of blood pressures -Patient was started on oxygen through nasal cannula. Restart BiPAP if needed -Started on ceftriaxone 1g IV daily [09/26-] in view of suspicion of possible underlying pneumonia # COPD, on home oxygen 2 L # Chronic smoker, stopped now -Patient is using inhaler at home -Denies cough, sputum production, wheeze -Nebulizations are ordered as needed # Asymptomatic bacteriuria -Patient is denying burning micturition, fever, lower abdominal pain -On examination, there is no suprapubic tenderness -Urine analysis showed 2+ proteinuria, 3+ blood, 189 RBC, 72 WBC, rare bacteria # Insulin-dependent diabetes mellitus -Patient is using insulin and Lantus 26 units -A1c in 01/2024 is 5.3 -Insulin Lantus 10 units is scheduled at 22: 00, adjust dose based on sugar levels -Insulin sliding scale is ordered -HbA1c is ordered # History of pulmonary embolism # History of paroxysmal A-fib -Currently in normal sinus rhythm -Patient is using Eliquis 5 Mg p.o. twice daily -Will resume the medication # History of Takotsubo cardiomyopathy -Echo from 01/2024 showed Normal LV size and function. Estimated EF 65-70. Normal RV size and function.Trace TR. -Patient is using aspirin at home -Restart after medication reconciliation # Substance abuse disorder -Patient is using methadone -Resume methadone after medication reconciliation Hospital Maintenance: Dispo: Med/tele, observation DVT ppx: Eliquis 5 Mg p.o. twice daily GI ppx: Protonix Diet: Low-salt IV lines: Peripheral Code status: Full code Patient plan of care was discussed with the attending physician, Dr. Yessy Arroyo, PGY1 Attending Provider Attestation/Addendum 64-year-old female who is a chronic smoker with COPD on home oxygen admitted for hypertensive emergency. She has high blood pressure. She has history of pulmonary embolism and atrial fibrillation. Chest x-ray showed bilateral pulmonary edema, perihilar and bibasilar infiltrates.. She will be admitted for further treatment and monitoring. Check I's and O's, monitor daily weight. Her EKG showed sinus tachycardia with borderline left axis deviation.
--- NOTE | 2024-09-26 23:12 | PC.NURSE ---
Addendum entered by Davidson Becerra RN 09/26/24 23:34: Patient was able to answer admission questionnaire. Admission packet complete. Original Note: RN unable to do admission questionaire due to patient being very lethargic and not wanting to answer questions. RN attempted to contact son Patria Diaz at [phone], but was unable to do the admission questionaire because patient's son said she was in the hospital for the majority of the year making him unsure of what to answer on the admission questions. RN will attempt to do admission question at a later time.
--- NOTE | 2024-09-26 23:35 | PC.NURSE ---
Patient arrived to unit with a black box filled with 5 methadone bottles and 20 nicotine patches. There were 5 bottles of metahdone in total. 3 bottles of methadone was empty, 1 bottle of methadone was sealed and full, and another bottle contained 2.5ml's. The 2 bottles of methadone that still had medication in them were put in the [facility] room and witnessed by Jory, Charge Nurse.
[2024-09-27] VITALS (16 sets, daily range): BP systolic 128–157; BP diastolic 67–83; PULSE 71–94; RESP 14–20; TEMP 36–37; O2SAT 93–99
[2024-09-27] MEDS: METHADONE HCL 10 MG TABLET PO (00:59)
[2024-09-27] MEDS: ALBUTEROL/IPRATROPIUM (Duoneb) RT SOL 3 ML NEBU INH ×4 (01:25→18:42)
--- NOTE | 2024-09-27 02:14 | PC.NURSE ---
Xray arrived to unit for patient.
--- NOTE | 2024-09-27 02:18 | XR_ITS ---
Examination:Right hip AP, lateral, AP pelvis 3 views Technique: Hip AP lateral, AP pelvis, 3 views Exam date and time: September 27, 2024 0218 hrs. Indications: Patient fell yesterday with injury to the right hip, right hip pain. Findings: Prominent osteopenia No acute fracture involving the right hip No right hip dislocation Left hip bones of the pelvis intact Impression: No acute hip fracture, if pain persists, recommend short-term follow-up AP pelvis or CT examination right hip follow-up as clinically warranted
--- NOTE | 2024-09-27 04:25 | PC.NURSE ---
Addendum entered by Davidson Becerra RN 09/27/24 04:28: Dr. Hurst made aware that patient is refusing AM blood draw. Addendum entered by Davidson Becerra RN 09/27/24 04:26: RN attempted to call hospitalists at [phone] and [phone]. No answer. will try again later. Original Note: Pt. refusing AM blood draw. RN will notify hospitalists.
[2024-09-27] MEDS: LOSARTAN POTASSIUM 25 MG TABLET 50 MG PO ×2 (06:41→09:10)
[2024-09-27] MEDS: INSULIN LISPRO (AdmeLOG) 1 UNIT/0.01 ML UNIT SC ×4 (08:31→21:34)
[2024-09-27] MEDS: FUROSEMIDE INJ 10 MG/ML 4ML VIAL 20 MG IVP (08:32)
[2024-09-27] MEDS: PANTOPRAZOLE INJ 40 MG VIAL IVP (08:33)
[2024-09-27] MEDS: APIXABAN 2.5 MG TABLET 5 MG PO ×2 (09:10→21:33)
--- NOTE | 2024-09-27 09:53 | PC.NURSE ---
Magnesium Sulfate ordered. Pt IV occluded. Pt requesting IV insertion via ultrasound. Once IV inserted, will administer Magnesium Sulfate.
[2024-09-27] MEDS: Magnesium Sulfate 4 GM Ivpb 4 GM/50 ML BAG IV (11:01)
[2024-09-27] MEDS: INSULIN GLARGINE (Lantus) 5 UNIT/0.05 ML (PER 5 UNITS) 10 UNIT SC ×2 (11:01→21:35)
[2024-09-27] MEDS: AZITHROMYCIN 250 MG TABLET 500 MG PO (11:03)
--- NOTE | 2024-09-27 11:42 | PC.SS ---
Christina Diaz is 64 year old female. SS met with patient at bedside to complete initial assessment and to discuss discharge planning. Patient appeared to be alert and oriented. Patient confirmed demographic information she lives with a friend. Patient reports her son, Ptaria Diaz is her surrogate decision maker [phone] . Pt states prior to hospitalization she is able to complete all ADL?s independently, does has rollator walker; pt has O2 and not sure provider as they are based out of [place]. Pt confirmed she has portable O2 at home. Pts PCP is Dr. Apolinar Tai. Pharmacy of choice is [facility]. Patient reports she has advance directive in place. Patient will return home. Friends will provide transportation upon DC. DC Plan: Home Next of Kin: Son, Patria Diaz [phone] PCP: Dr. Apolinar Tai
--- NOTE | 2024-09-27 12:03 | ESPR_ITS ---
<Statement entered by Claudia Suárez MD - 09/27/24 13:57> I discussed with and supervised my co-resident involved in the care of this patient. I agree with the assessment and plan as documented above. Patient admitted for acute on chronic hypoxic respiratory failure 2/2 acute COPD exacerbation. Back at baseline O2 requirements (2L). Complains of wet cough, congestion. Will give MucinX and antibiotics for acute COPD exacerbation. Morning labs show hyperglycemia, will adjust insulin requirements accordingly and follow urine and blood culture. Anticipate discharge within 24-48 hours. Claudia Suárez MD PGY-3 Documentation for date of: 09/27/24 Subjective Subjective Interval history: Christina Diaz is a 64-year-old female with a past medical history of COPD on 2 L home oxygen, hypertension, insulin-dependent type 2 diabetes mellitus, history of PE, Takotsubo cardiomyopathy, A-fib, substance abuse on methadone who is admitted for management of COPD exacerbation and hypertensive urgency. Presented with 1 day of shortness of breath and productive cough. Denies fever of note, ED initially consult ICU for possible intubation but patient had gotten better with BiPAP and ABG was normal so it was deemed that patient did not require ICU level of care. 09/27: No acute overnight events. Patient seen and examined at bedside. States that her breathing has improved compared to yesterday. Blood sugar 243, given 3 units lispro per sliding scale and 10 units glargine. Glargine also scheduled for 4 PM today, will likely reschedule to the morning. Blood pressure improved from 202/106 to 150/77. Started patient on azithromycin for COPD exacerbation. Hip x-ray did not reveal any acute fractures. She states that she has been able to walk in the hospital. Exam Vital Signs Temp Pulse Resp BP Pulse Ox O2 Del Method O2 Flow Rate 97.6 F 84 18 142/74 H 99 Nasal Cannula 1 09/27/24 07:52 09/27/24 11:44 09/27/24 11:44 09/27/24 09:10 09/27/24 11:44 09/27/24 07:52 09/27/24 11:44 FiO2 35 09/26/24 19:34 Narrative Exam General: AOx3, saturating well on 1 L NC, no acute distress, able to speak full sentences HEENT: NC/AT, mucous membranes moist, bilateral sclera anicteric Cardiovascular: regular rate and rhythm, S1/S2 present, no murmurs appreciated Pulmonary: clear to auscultation bilaterally, no rales/rhonchi/wheezes Abdominal: soft, non-tender, non-distended, no rebound/guarding, normal bowel sounds present Musculoskeletal: Bruising in right thigh Skin: warm and dry, intact, no rashes Neuro: CN II-XII intact, no focal deficits Objective Labs 09/27/24 15:13 09/27/24 15:13 ABG Interpretation ABG results: 09/26/24 10:22 ABG pH 7.41 ABG pCO2 42 ABG pO2 75 L ABG HCO3 27 H ABG O2 Saturation 96 ABG Base Excess 2 Quality Measures Quality Measures none Assessment & Plan Assessment Current Active Medications: Generic Name Dose Route Start Last Admin Trade Name Freq PRN Reason Stop Dose Admin Acetaminophen 650 mg 09/27/24 09:24 Acetaminophen 325 Mg Tablet PO 10/26/24 21:29 Q6H PRN Fever >100.3 Albuterol/Ipratropium 3 ml 09/27/24 01:00 09/27/24 11:42 Albuterol/Ipratropium (Duoneb) Rt Blanca 3 Ml Nebu INH 10/27/24 00:59 3 ml Q6HRRT KIP Administration Apixaban 5 mg 09/27/24 09:00 09/27/24 09:10 Apixaban 2.5 Mg Tablet PO 10/18/24 08:59 5 mg BID KIP Administration Azithromycin 500 mg 09/27/24 10:30 09/27/24 11:03 Azithromycin 250 Mg Tablet PO 10/04/24 10:29 500 mg QDAY KIP Administration Dextrose 25 ml 09/27/24 02:37 Dextrose 50%-Water Inj 50 Ml Syringe IV 10/27/24 02:36 Q15MIN PRN BG 50-70 responsive npo pt Dextrose 50 ml 09/27/24 02:37 Dextrose 50%-Water Inj 50 Ml Syringe IV 10/27/24 02:36 Q15MIN PRN BG <50 OR BG <70 & pt unresponsive Furosemide 20 mg 09/27/24 09:00 09/27/24 08:32 Furosemide Inj 10 Mg/Ml 4ml Vial IVP 10/27/24 08:59 20 mg QDAY KIP Administration Glucagon 1 mg 09/27/24 02:37 Glucagon Inj 1 Mg Vial IM Q15MIN PRN BG <70, and no IV access Guaifenesin/Dextromethorphan 1 each 09/27/24 10:58 Guaifenesin/Dm Tablet PO 10/27/24 10:57 BID PRN COUGH OR CONGESTION Magnesium Sulfate 4 gm in 50 mls @ 12.5 mls/hr 09/27/24 08:23 09/27/24 11:01 Magnesium Sulfate Ivpb IV 09/27/24 12:22 12.5 mls/hr X1 ONE Administration Insulin Glargine 10 unit 09/27/24 22:00 Insulin Glargine (Lantus) 5 Unit/0.05 Ml (Per 5 Units) SC 10/27/24 21:59 QDAY KIP Insulin Human Lispro 0 unit 09/27/24 07:30 09/27/24 08:31 Insulin Lispro (Admelog) 1 Unit/0.01 Ml Unit SC 10/27/24 07:29 3 unit ACHS KIP Administration Protocol Losartan Potassium 50 mg 09/27/24 07:00 09/27/24 09:10 Losartan Potassium 25 Mg Tablet PO 10/27/24 06:59 50 mg QDAY KIP Administration Magnesium Hydroxide 30 ml 09/26/24 21:30 Milk Of Magnesia Susp 30 Ml Udc PO 10/26/24 21:29 QDAY PRN CONSTIPATION Protocol Ondansetron HCl 4 mg 09/26/24 21:30 Ondansetron Inj 2 Mg/Ml Inj 2 Ml IV 10/26/24 21:29 Q6H PRN NAUSEA OR VOMITING Protocol Pantoprazole Sodium 40 mg 09/27/24 09:00 09/27/24 08:33 Pantoprazole Inj 40 Mg Vial IVP 10/27/24 08:59 40 mg QDAY KIP Administration Sodium Chloride 3 ml 09/26/24 08:00 Sodium Chloride Rt Blanca 0.9% 3 Ml Nebu INH 10/26/24 07:59 PRN PRN SOLN Plan Christina Diaz is a 64-year-old female with a past medical history of COPD on 2 L home oxygen, hypertension, insulin-dependent type 2 diabetes mellitus, history of PE, Takotsubo cardiomyopathy, A-fib, substance abuse on methadone who is admitted for management of COPD exacerbation and hypertensive urgency. #Acute on chronic hypoxic respiratory failure #COPD, on home oxygen 2 L #Chronic smoker, stopped now Uses inhaler at home. Denies cough, sputum production, wheeze. ? Azithromycin 500 mg p.o. daily ? DuoNebs every 6 hours ? Guaifenesin/dextromethorphan as needed ? Maintain O2 between 88 and 92% #History of Takotsubo cardiomyopathy #Hypertensive emergency #Uncontrolled hypertension Echo 01/2024: Normal LV size and function. EF 65-70. Normal RV size and function. Trace TR. Cardiomyopathy: Home lisinopril 40 mg daily, spironolactone 50 mg daily, Lasix 20 mg daily Hypertension: Home clonidine 0.1 mg twice daily, hydralazine 100 mg twice 3 times daily ? Lasix 20 mg IV daily ? Losartan 50 mg p.o. daily #Type 2 diabetes mellitus, insulin-dependent Home Lantus 26 units. A1c 5.3% on 01/2024. ? Glargine 10 units in a.m. daily ? SSI ? Follow-up A1c #Asymptomatic bacteriuria Denies burning micturition, fever, lower abdominal pain Urine analysis showed 2+ proteinuria, 3+ blood, 189 RBC, 72 WBC, rare bacteria ? Continue to monitor #History of pulmonary embolism #History of paroxysmal A-fib Currently normal sinus rhythm ? Eliquis 5 mg p.o. twice daily #Substance abuse disorder ? Restart methadone after reconciliation Hospital management: Disposition: Pending blood culture Diet: Low-sodium Lines: Peripheral DVT prophylaxis: Eliquis 5 mg p.o. twice daily GI prophylaxis: Pantoprazole IV CODE STATUS: full code ----- Plan discussed with attending physician Dr. Guillen and senior resident physician Dr. Jose Armando Hutchison MD PGY-1 Internal Medicine Attending Provider Attestation/Addendum I attest that I was physically present for the evaluation, physical examination, lab and imaging review of the patient with the residents. I discussed the case with the residents and agree with the findings and plans of care as documented above. Patient states she is feeling better compared to yesterday. She is on 2L oxygen via nasal cannula which is her baseline. Patient had refused her morning lab and was complaining of persistent cough. She was initially planned for discharge this afternoon but later agreed for labs, which revealed elevated WBC and THEO. We will cancel the discharge, will add IV Rocephin, steroid and continue lasix. Lul Guillen MD
--- NOTE | 2024-09-27 15:10 | ESDS_ITS ---
<Statement entered by Lul Guillen MD - 09/27/24 17:05> I attest that I was physically present for the evaluation, physical examination, lab and imaging review of the patient with the residents. I discussed the case with the residents and agree with the findings and plans of care as documented above. Patient was planned for discharge this afternoon, but noted to have THEO and Elevated WBC count. We will cancel the dc orders. Lul Guillen MD Planned Discharge Date 09/27/24 DS: Providers Provider Date of admission: 09/26/24 21:25 Primary care physician: Apolinar Tai MD Admitting Provider: Aayush Krishnamurthy MD Attending Provider on Admission: Lul Guillen MD Consults: 09/26/24 23:33 Referral Physical Therapy Routine Comment: Physician Instructions: Referral Respiratory Therapy Routine Comment: Came in for SOB, 3L Nasal cannula Attending Provider on DC: Shay Hutchison MD Discharging Provider: Shay Hutchison MD DS: Diagnosis Problem List Completed Was Problem List Reviewed/Reconciled?: Yes Hospital Course Hospital Course Hospital course: Christina Diaz is a 64-year-old female with a past medical history of COPD on 2 L home oxygen, hypertension, insulin-dependent type 2 diabetes mellitus, history of PE, Takotsubo cardiomyopathy, A-fib, substance abuse on methadone who is admitted for management of COPD exacerbation and hypertensive urgency. Presented with 1 day of shortness of breath and productive cough. Denies fever of note, ED initially consult ICU for possible intubation but patient had gotten better with BiPAP and ABG was normal so it was deemed that patient did not require ICU level of care. During patient stay there were no acute overnight events. States that her breathing has improved compared to when she was admitted and denies chest pain, nausea, vomiting, abdominal pain. Otherwise, patient has returned to her baseline oxygen requirements of 2 L and continues to saturate well. Additionally, her blood pressure has improved from 202/106 to 150/77 and so patient was deemed medically clear for discharge. Will discharge patient on azithromycin and prednisone for COPD exacerbation and she was instructed to follow-up with her PCP within 1 week of discharge. Diagnoses during admission: #Acute on chronic hypoxic respiratory failure #COPD, on home oxygen 2 L #Chronic smoker, stopped now #History of Takotsubo cardiomyopathy #Hypertensive emergency #Uncontrolled hypertension #Type 2 diabetes mellitus, insulin-dependent #Asymptomatic bacteriuria #History of pulmonary embolism #History of paroxysmal A-fib #Substance abuse disorder Discharge instructions: ? Please take azithromycin for 5 days ? Please take prednisone for 5 days ? Continue using rest of home medications as prescribed ? Follow-up with PCP within 1 week of discharge ----- Plan discussed with attending physician Dr. Guillen and senior resident physician Dr. Jose Armando Hutchison MD PGY-1 Internal Medicine Time Spent with Patient Time attestation: Total time spent providing and/or coordinating discharge services: Home Health Home Health Referral Orders: 09/27/24 15:03 Home Health Referral Routine Reason For Exam: COPD exacerbation Home-Bound The patient must either because of illness or injury, need the aid of supportive devices such as crutches, canes, wheelchairs, and walkers; the use of special transportation; or the assistance of another person in order to leave their place of residence; OR have a condition such that leaving his or her home is medically contraindicated. In addition, the patient also meets the following criteria: patient is normally unable to leave the home and leaving home requires considerable taxing effort. Addendum to Home Health Certification Practitioner's Certification: I certify that the patient has been under my care in the hospital and the care of attending physician (see below). We had a [id number] encounter on (see date below). My clinical findings indicate that the patient is home bound per the above criteria and the Home Health Services noted in these orders are medically necessary. The primary reason for the [id number] encounter is related to the fact that the patient requires home health services. Date Certifying [id number] Physician Encounter: 09/26/24 Physician's Name who will Assume Oversight for Services: Apolinar Tai Physician's Phone No.who will Assume Oversight for Service: KILN REMOVER - Community Resources: Yes PT to Evaluate: Yes PT to evaluate and provide a treatmnet plan to increase patient's mobility and strength. Wound Care: No IV Therapy: No RN Safety Evaluation: Yes RN to evaluate and create a plan of care that will produce positive outcomes. Palliative Treatment: No Palliative treatment and evaluate the need for hospice. Home Health Aide - Personal Care: No Home Health Aide to assist with any ADL's. Exam Vital Signs Temp Pulse Resp BP Pulse Ox O2 Del Method O2 Flow Rate 96.8 F 87 19 150/77 H 97 Nasal Cannula 2 09/27/24 12:00 09/27/24 12:00 09/27/24 12:00 09/27/24 12:00 09/27/24 12:00 09/27/24 12:00 09/27/24 12:00 FiO2 35 09/26/24 19:34 Narrative Exam General: AOx3, saturating well on 1 L NC, no acute distress, able to speak full sentences HEENT: NC/AT, mucous membranes moist, bilateral sclera anicteric Cardiovascular: regular rate and rhythm, S1/S2 present, no murmurs appreciated Pulmonary: clear to auscultation bilaterally, no rales/rhonchi/wheezes Abdominal: soft, non-tender, non-distended, no rebound/guarding, normal bowel sounds present Musculoskeletal: Bruising in right thigh Skin: warm and dry, intact, no rashes Neuro: CN II-XII intact, no focal deficits Discharge Plan Plan Patient Disposition: Home w/HOME HEALTH Patient condition on transfer: Stable Prescriptions/Referrals Prescriptions/Med Rec: New azithromycin [Zithromax Z-Gurjit] 250 mg tablet 250 mg PO QDAY 5 Days Qty: 5 0RF prednisone 20 mg tablet 40 mg PO QDAY 5 Days Qty: 10 0RF Continued tramadol 50 mg tablet 50 mg PO Q8H PRN (Reason: pain) Qty: 20 0RF hydralazine 100 mg tablet 100 mg PO TID Qty: 90 0RF albuterol sulfate 90 mcg/actuation HFA aerosol inhaler 1 puff inhalation QID PRN (Reason: shortness of breath or wheezing) Qty: 8.5 0RF aspirin 81 mg tablet,delayed release (DR/EC) 81 mg PO QDAY Qty: 30 0RF buspirone 5 mg tablet 5 mg PO QDAY Qty: 30 0RF furosemide [Lasix] 20 mg tablet 20 mg PO QAM Qty: 30 0RF lactulose 10 gram/15 mL solution 10 g PO QDAY PRN (Reason: constipation) Qty: 3785 0RF lidocaine 5 % adhesive patch,medicated 1 patch topical QDAY Qty: 30 0RF Rx Instructions: leave on most painful area for up to 12 hrs spironolactone 50 mg tablet 50 mg PO QDAY Qty: 30 0RF Trelegy Ellipta 200-62.5-25 mcg blister with device 1 inh inhalation QDAY Qty: 60 0RF insulin glargine [Basaglar KwikPen U-100 Insulin] 100 unit/mL (3 mL) insulin pen 26 unit subcut QPM Qty: 15 0RF methadone 10 mg/5 mL Solution 100 mg PO QDAY nitroglycerin 0.4 mg Tablet, Sublingual 0.4 mg BUCCAL Q5MIN PRN (Reason: Chest Pain) Discontinued spironolactone 50 mg tablet 50 mg PO QDAY Patient Comments: TAKE ONE TABLET BY MOUTH EVERY DAY nitroglycerin 0.4 mg tablet, sublingual See Rx Instructions .ROUTE .COMPLEX PRN (Reason: chest pain) Qty: 30 0RF Rx Instructions: mg buccally as needed tramadol 50 mg tablet 50 mg PO Q6H MDD 4 tabs PRN (Reason: pain) Qty: 20 0RF doxycycline hyclate 100 mg capsule 100 mg PO BID Qty: 6 0RF doxycycline monohydrate 100 mg capsule 100 mg PO BID Qty: 10 0RF No Action Eliquis DVT-PE Treat 30D Start 5 mg (74 tabs) tablets,dose pack 5 mg PO BID Qty: 74 0RF Referrals: Apolinar Tai MD [Primary Care Provider] - Patient/Caregiver Discharge Instructions Other Discharge Activity Instructions:: Please take azithromycin for 5 days. Please take prednisone for 5 days. Continue using rest of home medications as prescribed. Follow-up with PCP within 1 week of discharge. Education Materials: Types of Insulin, Treatment for COPD Print Language: Tristanian Stand Alone Forms: Kaylynn Award Info., Patient Portal Info Letter Quality Discharge Quality Measures VTE prophylaxis
[2024-09-27 15:25] LABS: Basophils # (Auto) 0.1 Thou/mm3 (0.0-0.2); Basophils % (Auto) 0 % (0-2.5); Eosinophils % (Auto) 0 % (0-10); Hematocrit 31.7 % (36.0-46.0); Hemoglobin 10.4 g/dL (12.0-16.0); Immature Granulocytes % (Auto) 3 % (0-0); Immature Granulocytes Auto 0.61 Thou/mm3 (0.00-0.00); Lymphocytes # (Auto) 1.5 Thou/mm3 (1.0-4.8); Lymphocytes % (Auto) 6 % (10-50); Mean Corpuscular HGB Conc 32.8 g/dl (31.0-37.0); Mean Corpuscular Hemoglobin 27.7 pg (25.0-35.0); Mean Corpuscular Volume 85 fL (80-100); Monocytes # (Auto) 1.3 Thou/mm3 (0.0-0.8); Monocytes % (Auto) 5 % (0-12); Neutrophils # (Auto) 21.4 Thou/mm3 (1.8-7.7); Neutrophils % (Auto) 86 % (37-80); Nucleated Red Blood Cell % 0 /100 WBC (0); Platelet Count 255 Thou/mm3 (140-440); RDW Standard Deviation 43.1 fL (36.4-46.3); Red Blood Count 3.75 Miln/mm3 (4.00-5.20); White Blood Count 24.8 Thou/mm3 (3.6-11.0)
[2024-09-27] MEDS: METHADONE HCL 10 MG TABLET 90 MG PO (15:26)
[2024-09-27 15:36] LABS: Glucose Estimated Average 137 mg/dL (80-131); Hemoglobin A1C 6.4 % Hgb (4.8-6.0)
[2024-09-27 15:42] LABS: Anion Gap 9 (7-16); BUN/Creatinine Ratio 22 Ratio (12-20); Blood Urea Nitrogen 33 mg/dL (9-23); Calcium 9.7 mg/dL (8.3-10.6); Carbon Dioxide 26.5 mMol/L (20.0-31.0); Chloride 101 mMol/L (98-107); Creatinine (Component) 1.5 mg/dL (0.6-1.3); Estimated Creatinine Clearance 38.2 mL/min (>60); Glucose 180 mg/dL (74-106); Osmolality,Calculated 284 (275-295); Potassium 4.9 mMol/L (3.4-5.1); Sodium 136 mMol/L (136-145); Thyroid Stimulating Hormone 0.29 uIU/mL (0.55-4.78); eGFR 39 See Note
[2024-09-27 17:05] LABS: Free T4 (Free Thyroxine) 1.37 ng/dL (0.89-1.76)
[2024-09-27] MEDS: cefTRIAXone/D5w 1gm IV premix 50 ML IV (17:13)
[2024-09-27] MEDS: predniSONE 20 MG TABLET 40 MG PO (17:13)
[2024-09-27] MEDS: guaiFENesin/DM TABLET 1 EACH PO (17:38)
[2024-09-27] MEDS: MELATONIN 3 MG TABLET PO (22:23)
[2024-09-28] VITALS (12 sets, daily range): BP systolic 134–169; BP diastolic 72–94; PULSE 72–87; RESP 16–20; TEMP 36–36.2; O2SAT 91–99
[2024-09-28] MEDS: ALBUTEROL/IPRATROPIUM (Duoneb) RT SOL 3 ML NEBU INH ×4 (00:53→18:59)
[2024-09-28 05:55] LABS: Basophils % (Auto) 0 % (0-2.5); Eosinophils % (Auto) 0 % (0-10); Hematocrit 32.8 % (36.0-46.0); Hemoglobin 10.7 g/dL (12.0-16.0); Immature Granulocytes % (Auto) 3 % (0-0); Immature Granulocytes Auto 0.48 Thou/mm3 (0.00-0.00); Lymphocytes # (Auto) 1.2 Thou/mm3 (1.0-4.8); Lymphocytes % (Auto) 6 % (10-50); Mean Corpuscular HGB Conc 32.6 g/dl (31.0-37.0); Mean Corpuscular Hemoglobin 27.6 pg (25.0-35.0); Mean Corpuscular Volume 85 fL (80-100); Monocytes # (Auto) 0.5 Thou/mm3 (0.0-0.8); Monocytes % (Auto) 3 % (0-12); Neutrophils # (Auto) 16.4 Thou/mm3 (1.8-7.7); Neutrophils % (Auto) 88 % (37-80); Nucleated Red Blood Cell % 0 /100 WBC (0); Platelet Count 204 Thou/mm3 (140-440); RDW Standard Deviation 41.8 fL (36.4-46.3); Red Blood Count 3.88 Miln/mm3 (4.00-5.20); White Blood Count 18.6 Thou/mm3 (3.6-11.0)
[2024-09-28 06:07] LABS: Anion Gap 8 (7-16); BUN/Creatinine Ratio 29 Ratio (12-20); Blood Urea Nitrogen 44 mg/dL (9-23); Calcium 9.3 mg/dL (8.3-10.6); Carbon Dioxide 26.3 mMol/L (20.0-31.0); Chloride 100 mMol/L (98-107); Creatinine (Component) 1.5 mg/dL (0.6-1.3); Estimated Creatinine Clearance 38.2 mL/min (>60); Glucose 292 mg/dL (74-106); Osmolality,Calculated 290 (275-295); Potassium 5.3 mMol/L (3.4-5.1); Sodium 134 mMol/L (136-145); eGFR 39 See Note
--- NOTE | 2024-09-28 06:25 | PC.NURSE ---
Dr. Arroyo made aware that patients potassium is 5.3.
[2024-09-28] MEDS: SOD POLYSTYRENE SULFON SUSP 15 GM/60 ML BTL PO (06:41)
[2024-09-28] MEDS: INSULIN LISPRO (AdmeLOG) 1 UNIT/0.01 ML UNIT SC ×4 (07:34→20:21)
[2024-09-28] MEDS: ONDANSETRON INJ 2 MG/ML INJ 2 ML 4 MG IV ×2 (07:58→15:46)
[2024-09-28] MEDS: cefTRIAXone/D5w 1gm IV premix 50 ML IV (09:18)
[2024-09-28] MEDS: PANTOPRAZOLE INJ 40 MG VIAL IVP (09:18)
[2024-09-28] MEDS: AZITHROMYCIN 250 MG TABLET 500 MG PO (09:18)
[2024-09-28] MEDS: predniSONE 20 MG TABLET 40 MG PO (09:18)
[2024-09-28] MEDS: APIXABAN 2.5 MG TABLET 5 MG PO ×2 (09:18→20:13)
[2024-09-28] MEDS: INSULIN GLARGINE (Lantus) 5 UNIT/0.05 ML (PER 5 UNITS) 10 UNIT SC (09:19)
[2024-09-28] MEDS: LOSARTAN POTASSIUM 25 MG TABLET 50 MG PO (09:19)
[2024-09-28] MEDS: METHADONE 100 MG PO (09:20)
[2024-09-28] MEDS: amLODIPine BESYLATE 5 MG TABLET 10 MG PO (11:21)
[2024-09-28] MEDS: INSULIN GLARGINE (Lantus) 5 UNIT/0.05 ML (PER 5 UNITS) SC (11:22)
--- NOTE | 2024-09-28 13:24 | ESPR_ITS ---
<Statement entered by Wilner Almonte MD - 09/28/24 15:43> Patient was seen and examined at the bedside. Patient was a failed discharge. She developed worsening kidney functions. Patient still have mild shortness of breath and wheezing. Will hold patient's antihypertensive losartan and continue amlodipine 10 mg for blood pressure management. Labs reviewed WBC 18.6. Blood sugars were elevated. Will likely keep the patient 1 more day to evaluate kidney functions and anticipate discharge tomorrow morning. All labs and orders were reviewed. I saw and examined the patient, and I agree with current management stated by Dr Edd MD,PGY1. Plan of care was discussed with the attending physician and resident physician. Disclaimer: Despite multiple revisions, due to the dictation software being used, the document bellow may not be free of grammatical errors including phonetic/typographic errors. However, this does not deter from our commitment to providing health care in the patient's best interest in mind. Dr. Bhupendra MD, PGY 2 Documentation for date of: 09/28/24 Subjective Subjective Interval history: Patient given one dose Kayexelate overnight. Patient examined at bedside, resting comfortably. No specific complaints. On 2 LPM O2, normal for patient. Kidney function worsening. Exam Vital Signs Temp Pulse Resp BP Pulse Ox O2 Del Method O2 Flow Rate 96.8 F 81 18 161/94 H 99 Nasal Cannula 2 09/28/24 12:00 09/28/24 12:19 09/28/24 12:19 09/28/24 12:00 09/28/24 12:19 09/28/24 12:00 09/28/24 12:19 FiO2 35 09/26/24 19:34 Narrative Exam PE: Gen: Well-developed and well-nourished. HEENT: NCAT, PERRLA, EOMI, MMM, anicteric conjunctivae. CVS: normal S1 and S2. RRR. No M/R/G. Resp: CTA B/L. No rhonchi, rales, crackles or wheezing. Abd: soft, non-tender, non-distended. MSK: Good ROM in BUE & BLE. No edema or rash. Neuro: CN II-XII grossly intact. Strength 5/5 in BUE & BLE. Alert and oriented x3. Objective Labs 09/28/24 04:53 09/28/24 04:53 Labs: Laboratory Results - last 24 hr 09/27/24 09/28/24 15:13 04:53 WBC 24.8 H D 18.6 H D RBC 3.75 L 3.88 L Hgb 10.4 L 10.7 L Hct 31.7 L 32.8 L MCV 85 85 MCH 27.7 27.6 MCHC 32.8 32.6 RDW Std Deviation 43.1 41.8 Plt Count 255 204 D Neut % (Auto) 86 H 88 H Lymph % (Auto) 6 L 6 L [place] % (Auto) 5 3 Eos % (Auto) 0 0 Baso % (Auto) 0 0 Neut # (Auto) 21.4 H 16.4 H Lymph # (Auto) 1.5 1.2 Swain # (Auto) 1.3 H 0.5 Eos # (Auto) 0.0 0.0 Baso # (Auto) 0.1 0.0 Immature Gran # (Auto) 0.61 H 0.48 H Absolute Nucleated RBC 0.00 0.00 Immature Gran % 3 H 3 H Nucleated RBC % 0 0 Sodium 136 134 L Potassium 4.9 D 5.3 H Chloride 101 100 Carbon Dioxide 26.5 26.3 Anion Gap 9 8 BUN 33 H 44 H Creatinine 1.5 H 1.5 H Estim Creat Clear Calc 38.2 L 38.2 L eGFR 39 L 39 L BUN/Creatinine Ratio 22 H 29 H Glucose 180 H D [address] Glu mg/dL 137 H Hemoglobin A1c 6.4 H Calculated Osmolality 284 290 Calcium 9.7 9.3 TSH 0.29 L Free T4 1.37 ABG Interpretation ABG results: 09/26/24 10:22 ABG pH 7.41 ABG pCO2 42 ABG pO2 75 L ABG HCO3 27 H ABG O2 Saturation 96 ABG Base Excess 2 Quality Measures Quality Measures VTE prophylaxis Assessment & Plan Assessment Current Active Medications: Generic Name Dose Route Start Last Admin Trade Name Freq PRN Reason Stop Dose Admin Acetaminophen 650 mg 09/27/24 09:24 Acetaminophen 325 Mg Tablet PO 10/26/24 21:29 Q6H PRN Fever >100.3 Albuterol/Ipratropium 3 ml 09/27/24 01:00 09/28/24 12:19 Albuterol/Ipratropium (Duoneb) Rt Blanca 3 Ml Nebu INH 10/27/24 00:59 3 ml Q6HRRT KIP Administration Amlodipine Besylate 10 mg 09/28/24 11:00 09/28/24 11:21 Amlodipine Besylate 5 Mg Tablet PO 10/28/24 10:59 10 mg QDAY KIP Administration Apixaban 5 mg 09/27/24 09:00 09/28/24 09:18 Apixaban 2.5 Mg Tablet PO 10/18/24 08:59 5 mg BID KIP Administration Azithromycin 500 mg 09/27/24 10:30 09/28/24 09:18 Azithromycin 250 Mg Tablet PO 10/04/24 10:29 500 mg QDAY KIP Administration Dextrose 25 ml 09/27/24 02:37 Dextrose 50%-Water Inj 50 Ml Syringe IV 10/27/24 02:36 Q15MIN PRN BG 50-70 responsive npo pt Dextrose 50 ml 09/27/24 02:37 Dextrose 50%-Water Inj 50 Ml Syringe IV 10/27/24 02:36 Q15MIN PRN BG <50 OR BG <70 & pt unresponsive Glucagon 1 mg 09/27/24 02:37 Glucagon Inj 1 Mg Vial IM Q15MIN PRN BG <70, and no IV access Guaifenesin/Dextromethorphan 1 each 09/27/24 10:58 09/27/24 17:38 Guaifenesin/Dm Tablet PO 10/27/24 10:57 1 each BID PRN Administration COUGH OR CONGESTION Ceftriaxone Sodium/Dextrose 50 mls @ 100 mls/hr 09/27/24 16:46 09/28/24 09:18 Rocephin/D5w 1gm Iv Premix IV 10/04/24 16:45 100 mls/hr QDAY KIP Administration Insulin Glargine 15 unit 09/29/24 09:00 Insulin Glargine (Lantus) 5 Unit/0.05 Ml (Per 5 Units) SC 10/29/24 08:59 QDAY KIP Insulin Human Lispro 0 unit 09/28/24 10:53 09/28/24 11:23 Insulin Lispro (Admelog) 1 Unit/0.01 Ml Unit SC 10/27/24 07:29 10 unit ACHS KIP Administration Protocol Losartan Potassium 50 mg 09/27/24 07:00 09/28/24 09:19 Losartan Potassium 25 Mg Tablet PO 10/27/24 06:59 50 mg QDAY KIP Administration Magnesium Hydroxide 30 ml 09/26/24 21:30 Milk Of Magnesia Susp 30 Ml Udc PO 10/26/24 21:29 QDAY PRN CONSTIPATION Protocol Methadone HCl 100 mg 09/29/24 09:00 Methadone Hcl 10 Mg Tablet PO 10/04/24 08:59 QDAY KIP Ondansetron HCl 4 mg 09/26/24 21:30 09/28/24 07:58 Ondansetron Inj 2 Mg/Ml Inj 2 Ml IV 10/26/24 21:29 4 mg Q6H PRN Administration NAUSEA OR VOMITING Protocol Pantoprazole Sodium 40 mg 09/27/24 09:00 09/28/24 09:18 Pantoprazole Inj 40 Mg Vial IVP 10/27/24 08:59 40 mg QDAY KIP Administration Prednisone 40 mg 09/27/24 17:00 09/28/24 09:18 Prednisone 20 Mg Tablet PO 10/27/24 16:59 40 mg QDAY KIP Administration Sodium Chloride 3 ml 09/26/24 08:00 Sodium Chloride Rt Blanca 0.9% 3 Ml Nebu INH 10/26/24 07:59 PRN PRN SOLN Plan Christina Diaz is a 64-year-old female with a past medical history of COPD on 2 L home oxygen, hypertension, insulin-dependent type 2 diabetes mellitus, history of PE, Takotsubo cardiomyopathy, A-fib, substance abuse on methadone who is admitted for management of COPD exacerbation and hypertensive urgency. #Acute on chronic hypoxic respiratory failure, resolved #COPD, on home oxygen 2 L #CAP Uses inhaler at home. Denies cough, sputum production, wheeze. CXR showed signs of bilateral bibasilar pneumonia. -Azithromycin 500 mg p.o. daily -Rocephin 1g IV daily (09/27-) -DuoNebs every 6 hours (09/27-) -Guaifenesin/dextromethorphan as needed -Maintain O2 between 88 and 92% -Prednisomne 40mg PO daily #THEO Patient developed worsening kidney function during hospitalization. Previous renal panel WNL. BUN 44, Creatinine 1.5, eGFR 39. Urinary output not accuratly measured. -Strict I's & O's. -hold lasix and losartan. #History of Takotsubo cardiomyopathy #Hypertensive emergency #Uncontrolled hypertension Echo 01/2024: Normal LV size and function. EF 65-70. Normal RV size and function. Trace TR. Cardiomyopathy: Home lisinopril 40 mg daily, spironolactone 50 mg daily, Lasix 20 mg daily Hypertension: Home clonidine 0.1 mg twice daily, hydralazine 100 mg twice 3 times daily -Lasix 20 mg IV daily, held due to kidney function -Losartan 50 mg p.o. daily, held due to kidney function -Amlodipine 10mg PO daily #Type 2 diabetes mellitus, insulin-dependent Home Lantus 26 units. A1c 5.3% on 01/2024, 6.4% as of 09/27/2024. Has not been well-controlled inpatient. -Glargine 15 units in a.m. daily -SSI #Asymptomatic bacteriuria Denies burning micturition, fever, lower abdominal pain Urine analysis showed 2+ proteinuria, 3+ blood, 189 RBC, 72 WBC, rare bacteria -Continue to monitor #History of pulmonary embolism #History of paroxysmal A-fib Currently normal sinus rhythm -Eliquis 5 mg p.o. twice daily #Substance abuse disorder -Methadone 100mg PO daily Hospital management: Diet: Low-sodium Lines: Peripheral DVT prophylaxis: Eliquis 5 mg p.o. twice daily GI prophylaxis: Pantoprazole IV CODE STATUS: full code Plan of care discussed with senior resident Dr. Almonte and attending Dr. Guillen. Cristian Landaverde MD PGY-1 Attending Provider Attestation/Addendum I attest that I was physically present for the evaluation, physical examination, lab and imaging review of the patient with the residents. I discussed the case with the residents and agree with the findings and plans of care as documented above. At bedside patient states she is feeling more comfortable compared to yesterday but states she is fearful from all her illnesses. Explained in detail about her conditions, management plans and prognosis. Continues to be on 2L/min nasal cannula which is her baseline. Kidney function worsened compared to yesterday. We will hold her diuretic and monitor kidney function closely. Lul Guillen MD
[2024-09-28] MEDS: ACETAMINOPHEN 325 MG TABLET 650 MG PO (20:12)
[2024-09-29] VITALS (14 sets, daily range): BP systolic 128–153; BP diastolic 65–82; PULSE 60–88; RESP 13–24; TEMP 36.1–36.7; O2SAT 95–100
[2024-09-29] MEDS: ALBUTEROL/IPRATROPIUM (Duoneb) RT SOL 3 ML NEBU INH ×5 (00:36→18:44)
[2024-09-29 06:13] LABS: Basophils # (Auto) 0.1 Thou/mm3 (0.0-0.2); Basophils % (Auto) 0 % (0-2.5); Eosinophils % (Auto) 0 % (0-10); Hematocrit 32.6 % (36.0-46.0); Hemoglobin 10.4 g/dL (12.0-16.0); Immature Granulocytes % (Auto) 2 % (0-0); Immature Granulocytes Auto 0.46 Thou/mm3 (0.00-0.00); Lymphocytes # (Auto) 2.9 Thou/mm3 (1.0-4.8); Lymphocytes % (Auto) 15 % (10-50); Mean Corpuscular HGB Conc 31.9 g/dl (31.0-37.0); Mean Corpuscular Hemoglobin 27.2 pg (25.0-35.0); Mean Corpuscular Volume 85 fL (80-100); Monocytes # (Auto) 1.1 Thou/mm3 (0.0-0.8); Monocytes % (Auto) 5 % (0-12); Neutrophils % (Auto) 77 % (37-80); Nucleated Red Blood Cell % 0 /100 WBC (0); Platelet Count 245 Thou/mm3 (140-440); RDW Standard Deviation 42.2 fL (36.4-46.3); Red Blood Count 3.82 Miln/mm3 (4.00-5.20); White Blood Count 19.5 Thou/mm3 (3.6-11.0)
[2024-09-29 06:46] LABS: Anion Gap 9 (7-16); BUN/Creatinine Ratio 34 Ratio (12-20); Blood Urea Nitrogen 44 mg/dL (9-23); Calcium 9.3 mg/dL (8.3-10.6); Carbon Dioxide 26.2 mMol/L (20.0-31.0); Chloride 101 mMol/L (98-107); Creatinine (Component) 1.3 mg/dL (0.6-1.3); Estimated Creatinine Clearance 44.1 mL/min (>60); Glucose 96 mg/dL (74-106); Osmolality,Calculated 283 (275-295); Potassium 5.7 mMol/L (3.4-5.1); Sodium 136 mMol/L (136-145); eGFR 46 See Note
[2024-09-29] MEDS: INSULIN GLARGINE (Lantus) 5 UNIT/0.05 ML (PER 5 UNITS) 15 UNIT SC (08:20)
[2024-09-29] MEDS: PANTOPRAZOLE INJ 40 MG VIAL IVP (08:20)
[2024-09-29] MEDS: cefTRIAXone/D5w 1gm IV premix 50 ML IV (08:21)
[2024-09-29] MEDS: METHADONE HCL 10 MG TABLET 100 MG PO (08:21)
[2024-09-29] MEDS: AZITHROMYCIN 250 MG TABLET 500 MG PO (08:22)
[2024-09-29] MEDS: APIXABAN 2.5 MG TABLET 5 MG PO ×2 (08:22→20:43)
[2024-09-29] MEDS: predniSONE 20 MG TABLET 40 MG PO (08:22)
[2024-09-29] MEDS: amLODIPine BESYLATE 5 MG TABLET 10 MG PO (08:23)
[2024-09-29] MEDS: SOD POLYSTYRENE SULFON SUSP 15 GM/60 ML BTL 30 GM PO (09:58)
--- NOTE | 2024-09-29 10:28 | PD.RESPRO ---
Documentation for date of: 09/29/24 Subjective Subjective Interval history: Patient was seen and examined at the bedside. Patient reported that she had mild cough however feels better. She had concerned that she wants to stay 1 more day because she ran out of her medication methadone and she will not be able to get prescription tomorrow. Vitals showed blood pressure 128/65, heart rate 67. She was saturating well on nasal cannula 2 L. Labs showed leukocytosis likely due to steroids. Hemoglobin stable at 10.4. Chemistry panel showed hyperkalemia at 5.7. Kidney functions improved with BUN 44 and creatinine 1.3 after holding of ARB's losartan and Lasix. Patient is managing blood pressure with amlodipine well. Will continue with current management and anticipate discharge tomorrow. All labs and orders were reviewed. Exam Vital Signs Temp Pulse Resp BP Pulse Ox O2 Del Method O2 Flow Rate 97.8 F 82 22 H 153/82 H 100 Nasal Cannula 2 09/29/24 08:00 09/29/24 09:07 09/29/24 09:07 09/29/24 08:23 09/29/24 09:07 09/29/24 08:00 09/29/24 09:07 FiO2 35 09/26/24 19:34 Narrative Exam GENERAL APPEARANCE: AxOx4, generally well-appearing female in no acute distress. Saturating well on 2 L NC. HEENT: NC, AT. MMM. EOMI, clear conjunctiva, oropharynx clear. NECK: Supple without lymphadenopathy. No stiffness or restricted ROM. HEART: Regular rate and regular rhythm, normal S1/S2, no m/r/g LUNGS: Bilateral coarse breath sounds heard on auscultation. No wheezing heard. ABDOMEN: Soft, nontender, nondistended with good bowel sounds heard. BACK: No CVAT, no obvious deformity. EXTREMITIES: Without cyanosis, clubbing or edema. NEUROLOGICAL: Grossly nonfocal. Alert and oriented, moving all 4 extremities. CN not formally tested but appear grossly intact. Observed to ambulate with normal gait. Skin: Warm and dry without any rash. Psych: Appropriate mood and affect Objective Labs 09/29/24 05:03 09/29/24 14:10 Labs: Laboratory Results - last 24 hr 09/29/24 05:03 WBC 19.5 H RBC 3.82 L Hgb 10.4 L Hct 32.6 L MCV 85 MCH 27.2 MCHC 31.9 RDW Std Deviation 42.2 Plt Count 245 D Neut % (Auto) 77 Lymph % (Auto) 15 [place] % (Auto) 5 Eos % (Auto) 0 Baso % (Auto) 0 Neut # (Auto) 15.0 H Lymph # (Auto) 2.9 [place] # (Auto) 1.1 H Eos # (Auto) 0.0 Baso # (Auto) 0.1 Immature Gran # (Auto) 0.46 H Absolute Nucleated RBC 0.00 Immature Gran % 2 H Nucleated RBC % 0 Sodium 136 Potassium 5.7 H Chloride 101 Carbon Dioxide 26.2 Anion Gap 9 BUN 44 H Creatinine 1.3 Estim Creat Clear Calc 44.1 L eGFR 46 L BUN/Creatinine Ratio 34 H Glucose 96 D Calculated Osmolality 283 Calcium 9.3 ABG Interpretation ABG results: 09/26/24 10:22 ABG pH 7.41 ABG pCO2 42 ABG pO2 75 L ABG HCO3 27 H ABG O2 Saturation 96 ABG Base Excess 2 Quality Measures Quality Measures VTE prophylaxis Assessment & Plan Assessment Current Active Medications: Generic Name Dose Route Start Last Admin Trade Name Freq PRN Reason Stop Dose Admin Acetaminophen 650 mg 09/27/24 09:24 09/28/24 20:12 Acetaminophen 325 Mg Tablet PO 10/26/24 21:29 650 mg Q6H PRN Administration Fever >100.3 Albuterol/Ipratropium 3 ml 09/27/24 01:00 09/29/24 06:03 Albuterol/Ipratropium (Duoneb) Rt Blanca 3 Ml Nebu INH 10/27/24 00:59 3 ml Q6HRRT KIP Administration Amlodipine Besylate 10 mg 09/28/24 11:00 09/29/24 08:23 Amlodipine Besylate 5 Mg Tablet PO 10/28/24 10:59 10 mg QDAY KIP Administration Apixaban 5 mg 09/27/24 09:00 09/29/24 08:22 Apixaban 2.5 Mg Tablet PO 10/18/24 08:59 5 mg BID KIP Administration Azithromycin 500 mg 09/27/24 10:30 09/29/24 08:22 Azithromycin 250 Mg Tablet PO 10/04/24 10:29 500 mg QDAY KIP Administration Dextrose 25 ml 09/27/24 02:37 Dextrose 50%-Water Inj 50 Ml Syringe IV 10/27/24 02:36 Q15MIN PRN BG 50-70 responsive npo pt Dextrose 50 ml 09/27/24 02:37 Dextrose 50%-Water Inj 50 Ml Syringe IV 10/27/24 02:36 Q15MIN PRN BG <50 OR BG <70 & pt unresponsive Glucagon 1 mg 09/27/24 02:37 Glucagon Inj 1 Mg Vial IM Q15MIN PRN BG <70, and no IV access Guaifenesin/Dextromethorphan 1 each 09/27/24 10:58 09/27/24 17:38 Guaifenesin/Dm Tablet PO 10/27/24 10:57 1 each BID PRN Administration COUGH OR CONGESTION Ceftriaxone Sodium/Dextrose 50 mls @ 100 mls/hr 09/27/24 16:46 09/29/24 08:21 Rocephin/D5w 1gm Iv Premix IV 10/04/24 16:45 100 mls/hr QDAY KIP Administration Insulin Glargine 15 unit 09/29/24 09:00 09/29/24 08:20 Insulin Glargine (Lantus) 5 Unit/0.05 Ml (Per 5 Units) SC 10/29/24 08:59 15 unit QDAY KIP Administration Insulin Human Lispro 0 unit 09/28/24 10:53 09/29/24 07:31 Insulin Lispro (Admelog) 1 Unit/0.01 Ml Unit SC 10/27/24 07:29 Not Given ACHS KIP Protocol Losartan Potassium 50 mg 09/27/24 07:00 09/28/24 09:19 Losartan Potassium 25 Mg Tablet PO 10/27/24 06:59 50 mg QDAY KIP Administration Magnesium Hydroxide 30 ml 09/26/24 21:30 Milk Of Magnesia Susp 30 Ml Udc PO 10/26/24 21:29 QDAY PRN CONSTIPATION Protocol Methadone HCl 100 mg 09/29/24 09:00 09/29/24 08:21 Methadone Hcl 10 Mg Tablet PO 10/04/24 08:59 100 mg QDAY KIP Administration Ondansetron HCl 4 mg 09/26/24 21:30 09/28/24 15:46 Ondansetron Inj 2 Mg/Ml Inj 2 Ml IV 10/26/24 21:29 4 mg Q6H PRN Administration NAUSEA OR VOMITING Protocol Pantoprazole Sodium 40 mg 09/27/24 09:00 09/29/24 08:20 Pantoprazole Inj 40 Mg Vial IVP 10/27/24 08:59 40 mg QDAY KIP Administration Prednisone 40 mg 09/27/24 17:00 09/29/24 08:22 Prednisone 20 Mg Tablet PO 10/27/24 16:59 40 mg QDAY KIP Administration Sodium Chloride 3 ml 09/26/24 08:00 Sodium Chloride Rt Blanca 0.9% 3 Ml Nebu INH 10/26/24 07:59 PRN PRN SOLN Plan This Christina Diaz is a 64-year-old female with a past medical history of COPD on 2 L home oxygen, hypertension, insulin-dependent type 2 diabetes mellitus, history of PE, Takotsubo cardiomyopathy, A-fib, substance abuse on methadone who is admitted for management of COPD exacerbation and hypertensive urgency. #Acute on chronic hypoxic respiratory failure, resolved #COPD, on home oxygen 2 L #CAP Uses inhaler at home. Denies cough, sputum production, wheeze. CXR showed signs of bilateral bibasilar pneumonia. -Azithromycin 500 mg p.o. daily -Rocephin 1g IV daily (09/27-) -DuoNebs every 6 hours (09/27-) -Guaifenesin/dextromethorphan as needed -Maintain O2 between 88 and 92% -Prednisone 40mg PO daily # Hyperkalemia -Potassium 5.7 -Kayexalate 30 mg x 1 and breathing treatment given x 1 -Follow-up with labs #THEO,Improving Patient developed worsening kidney function during hospitalization. Previous renal panel WNL. BUN 44, creatinine 1.3, GFR 46. Patient is adequately making urine not documented properly. -Strict I's & O's. -hold lasix and losartan. -Amlodipine 10 mg once daily #History of Takotsubo cardiomyopathy #Hypertensive emergency #Uncontrolled hypertension Echo 01/2024: Normal LV size and function. EF 65-70. Normal RV size and function. Trace TR. Cardiomyopathy: Home lisinopril 40 mg daily, spironolactone 50 mg daily, Lasix 20 mg daily Hypertension: Home clonidine 0.1 mg twice daily, hydralazine 100 mg twice 3 times daily -Lasix 20 mg IV daily, held due to kidney function -Losartan 50 mg p.o. daily, held due to kidney function -Amlodipine 10mg PO daily #Type 2 diabetes mellitus, insulin-dependent Home Lantus 26 units. A1c 5.3% on 01/2024, 6.4% as of 09/27/2024. Has not been well-controlled inpatient. -Glargine 15 units in a.m. daily -SSI #Asymptomatic bacteriuria Denies burning micturition, fever, lower abdominal pain Urine analysis showed 2+ proteinuria, 3+ blood, 189 RBC, 72 WBC, rare bacteria -Continue to monitor #History of pulmonary embolism #History of paroxysmal A-fib Currently normal sinus rhythm -Eliquis 5 mg p.o. twice daily #Substance abuse disorder -Methadone 100mg PO daily Hospital management: Diet: Low-sodium Lines: Peripheral DVT prophylaxis: Eliquis 5 mg p.o. twice daily GI prophylaxis: Pantoprazole IV CODE STATUS: full code Patient was seen and discussed with attending physician, Dr.Bishwakarma Dr. Gage MD, PGY 2 Attending Provider Attestation/Addendum I attest that I was physically present for the evaluation, physical examination, lab and imaging review of the patient with the residents. I discussed the case with the residents and agree with the findings and plans of care as documented above. At bedside, patient states he is feeling well and does not have any new complaints. Saturating well on 2 L of oxygen via nasal cannula. Kidney function improving with increased oral intake and holding Lasix. Noted to have elevated potassium of 5.7 this morning, we will add Kayexalate and breathing treatment and reevaluate the potassium level. Patient also stated that she will not be able to get her methadone for tomorrow as her pharmacy will be closed. We will plan for discharge tomorrow after her methadone dose if her potassium level improves. Lul Guillen MD
[2024-09-29] MEDS: INSULIN LISPRO (AdmeLOG) 1 UNIT/0.01 ML UNIT SC ×3 (12:03→20:51)
[2024-09-29 14:35] LABS: Potassium 5.1 mMol/L (3.4-5.1)
[2024-09-29] MEDS: ONDANSETRON INJ 2 MG/ML INJ 2 ML 4 MG IV (18:22)
[2024-09-29] MEDS: ACETAMINOPHEN 325 MG TABLET 650 MG PO (20:50)
[2024-09-29] MEDS: guaiFENesin/DM TABLET 1 EACH PO (20:51)
[2024-09-30] VITALS: BP 151/67; PULSE 67; PULSE 75; RESP 18; TEMP 36.1; O2SAT 98
[2024-09-30] MEDS: ALBUTEROL/IPRATROPIUM (Duoneb) RT SOL 3 ML NEBU INH ×2 (00:32→05:54)
[2024-09-30 00:34] VITALS: PULSE 62; PULSE 63; RESP 19; O2SAT 100; O2SAT 98
[2024-09-30 04:00] VITALS: BP 160/87; PULSE 63; PULSE 89; RESP 18; TEMP 36.2; O2SAT 96
[2024-09-30 05:52] LABS: Basophils # (Auto) 0.1 Thou/mm3 (0.0-0.2); Basophils % (Auto) 0 % (0-2.5); Eosinophils % (Auto) 0 % (0-10); Hematocrit 30.6 % (36.0-46.0); Hemoglobin 9.8 g/dL (12.0-16.0); Immature Granulocytes % (Auto) 5 % (0-0); Immature Granulocytes Auto 0.77 Thou/mm3 (0.00-0.00); Lymphocytes # (Auto) 3.2 Thou/mm3 (1.0-4.8); Lymphocytes % (Auto) 19 % (10-50); Mean Corpuscular Hemoglobin 27.2 pg (25.0-35.0); Mean Corpuscular Volume 85 fL (80-100); Monocytes # (Auto) 1.1 Thou/mm3 (0.0-0.8); Monocytes % (Auto) 7 % (0-12); Neutrophils # (Auto) 11.9 Thou/mm3 (1.8-7.7); Neutrophils % (Auto) 70 % (37-80); Nucleated Red Blood Cell % 0 /100 WBC (0); Platelet Count 313 Thou/mm3 (140-440); RDW Standard Deviation 41.2 fL (36.4-46.3)
[2024-09-30 06:17] LABS: Alanine Aminotransferase 11 U/L (10-49); Albumin, Serum 3.7 gm/dL (3.4-4.8); Albumin/Globulin Ratio 1.6 (1.2-2.2); Alkaline Phosphatase 48 U/L (46-116); Anion Gap 8 (7-16); Aspartate Amino Transferase 12 U/L (0-34); BUN/Creatinine Ratio 40 Ratio (12-20); Bilirubin,Total 0.3 mg/dL (0.3-1.2); Blood Urea Nitrogen 44 mg/dL (9-23); Calcium 8.9 mg/dL (8.3-10.6); Calcium (Corrected) 9.1 mg/dL (8.5-10.1); Carbon Dioxide 27.9 mMol/L (20.0-31.0); Chloride 102 mMol/L (98-107); Creatinine (Component) 1.1 mg/dL (0.6-1.3); Estimated Creatinine Clearance 52.1 mL/min (>60); Globulin 2.3 gm/dL (2.3-3.5); Glucose 81 mg/dL (74-106); Magnesium 2.2 mg/dL (1.6-2.6); Osmolality,Calculated 285 (275-295); Phosphorous 4.1 mg/dL (2.4-5.1); Potassium 4.2 mMol/L (3.4-5.1); Sodium 138 mMol/L (136-145); eGFR 56 See Note
[2024-09-30 07:51] VITALS: PULSE 74
[2024-09-30 08:00] VITALS: BP 161/84; PULSE 71; RESP 19; TEMP 36.1; O2SAT 98
[2024-09-30 08:19] VITALS: BP 161/84; PULSE 81
[2024-09-30] MEDS: INSULIN GLARGINE (Lantus) 5 UNIT/0.05 ML (PER 5 UNITS) 15 UNIT SC (08:19)
[2024-09-30] MEDS: PANTOPRAZOLE INJ 40 MG VIAL IVP (08:19)
[2024-09-30] MEDS: cefTRIAXone/D5w 1gm IV premix 50 ML IV (08:19)
[2024-09-30] MEDS: amLODIPine BESYLATE 5 MG TABLET 10 MG PO (08:19)
[2024-09-30] MEDS: APIXABAN 2.5 MG TABLET 5 MG PO (08:20)
[2024-09-30] MEDS: METHADONE HCL 10 MG TABLET 100 MG PO (08:20)
[2024-09-30] MEDS: predniSONE 20 MG TABLET 40 MG PO (08:20)
[2024-09-30] MEDS: AZITHROMYCIN 250 MG TABLET 500 MG PO (08:20)
--- NOTE | 2024-09-30 14:07 | ESDS_ITS ---
<Statement entered by Lul Guillen MD - 09/30/24 14:52> I attest that I was physically present for the evaluation, physical examination, lab and imaging review of the patient with the residents. I discussed the case with the residents and agree with the findings and plans of care as documented above. Patient's kidney function continues to improve after holding Lasix. Potassium level came down to normal levels. Patient deemed stable for discharge. Advised to follow-up with PCP, have her renal panel checked in a week. Lul Guillen MD Planned Discharge Date 09/30/24 DS: Providers Provider Date of admission: 09/28/24 13:21 Primary care physician: Apolinar Tai MD Admitting Provider: Aayush Krishnamurthy MD Attending Provider on Admission: Lul Guillen MD Consults: 09/26/24 23:33 Referral Physical Therapy Routine Comment: Physician Instructions: Referral Respiratory Therapy Routine Comment: Came in for SOB, 3L Nasal cannula Attending Provider on DC: Lul Guillen MD Discharging Provider: Cristian Landaverde MD DS: Diagnosis Problem List Completed Was Problem List Reviewed/Reconciled?: Yes Hospital Course Hospital Course Hospital course: 64 y/o female with a past medical history of hypertension, COPD on 2L home oxygen, insulin-dependent type 2 diabetes, history of pulmonary embolism, history of Takotsubo cardiomyopathy, paroxysmal atrial fibrillation, and substance use disorder on methadone, recurrent hospital admissions for congestive heart failure and COPD exacerbation who lives at home with her friend was brought to the hospital in ambulance with chief complaints of shortness of breath and generalized weakness. Patient reported that she is feeling shortness of breath and overall generalized weakness since 1 day before the day of admission. Patient endorsed that she continue to use oxygen 2 L at home and compliant with other medications. Patient at her normal baseline had cough. In the ED, ICU was consulted initially and the resident along with Dr. Callahan recommended that the patient did not require ICU level of care and recommended to contact the team on floor. Patient was initially on oxygen through nasal cannula 3 L in the ED, later patient was started on BiPAP around 9:30 AM, reason unknown. ABG showed pCO2 within normal limits. In the ED, patient was given steroids, clonidine, breathing treatments, ceftriaxone, azithromycin and IV fluids. Patient was admitted for acute on chronic hypoxic respiratory failure, hypertensive emergency. Patient treated with prednisone, DuoNebs, azithromycin with improvement in respiratory symptoms. Hypertensive emergency resolved with Lasix and losartan. Patient developed THEO, was held for extra days to resolve THEO, now restart Lasix and losartan were held. THEO resolved with close monitoring oral hydration. Patient medically cleared and stable for discharge. Discharge plan: Please take azithromycin for 5 days. Please take prednisone for 5 days. Continue using rest of home medications as prescribed. Follow-up with PCP within 1 week of discharge. Diagnoses: #Acute on chronic hypoxic respiratory failure, resolved #COPD, on home oxygen 2 L #CAP #Hyperkalemia #THEO,Improving #History of Takotsubo cardiomyopathy #Hypertensive emergency, resolved #Uncontrolled hypertension #Type 2 diabetes mellitus, insulin-dependent #Asymptomatic bacteriuria #History of pulmonary embolism #History of paroxysmal A-fib #Substance abuse disorder Plan of care discussed with senior resident Dr. Grande PGY-[address] Guillen. Cristian Landaverde MD PGY-1 Time Spent with Patient Time attestation: Total time spent providing and/or coordinating discharge services: Exam Vital Signs Temp Pulse Resp BP Pulse Ox O2 Del Method O2 Flow Rate 96.9 F 81 19 161/84 H 98 Nasal Cannula 2 09/30/24 08:00 09/30/24 08:19 09/30/24 08:00 09/30/24 08:19 09/30/24 08:00 09/30/24 08:00 09/30/24 08:00 FiO2 35 09/29/24 16:00 Narrative Exam PE: Gen: Well-developed and well-nourished. HEENT: NCAT, PERRLA, EOMI, MMM, anicteric conjunctivae. CVS: normal S1 and S2. RRR. No M/R/G. Resp: Poor air movement throughout all lung mehta. No wheezing, rhonchi, rales. Abd: soft, non-tender, non-distended. MSK: Good ROM in BUE & BLE. No edema or rash. Neuro: CN II-XII grossly intact. Strength 5/5 in BUE & BLE. Alert and oriented x3. Psych: appropriate mood and affect. Discharge Plan Plan Patient Disposition: Home w/HOME HEALTH Patient condition on transfer: Stable Prescriptions/Referrals Prescriptions/Med Rec: New azithromycin [Zithromax Z-Gurjit] 250 mg tablet 250 mg PO QDAY 5 Days Qty: 5 0RF prednisone 20 mg tablet 40 mg PO QDAY 5 Days Qty: 10 0RF apixaban 5 mg tablet 5 mg PO BID 30 Days Qty: 60 0RF Continued tramadol 50 mg tablet 50 mg PO Q8H PRN (Reason: pain) Qty: 20 0RF hydralazine 100 mg tablet 100 mg PO TID Qty: 90 0RF albuterol sulfate 90 mcg/actuation HFA aerosol inhaler 1 puff inhalation QID PRN (Reason: shortness of breath or wheezing) Qty: 8.5 0RF aspirin 81 mg tablet,delayed release (DR/EC) 81 mg PO QDAY Qty: 30 0RF buspirone 5 mg tablet 5 mg PO QDAY Qty: 30 0RF furosemide [Lasix] 20 mg tablet 20 mg PO QAM Qty: 30 0RF lactulose 10 gram/15 mL solution 10 g PO QDAY PRN (Reason: constipation) Qty: 3785 0RF lidocaine 5 % adhesive patch,medicated 1 patch topical QDAY Qty: 30 0RF Rx Instructions: leave on most painful area for up to 12 hrs spironolactone 50 mg tablet 50 mg PO QDAY Qty: 30 0RF Trelegy Ellipta 200-62.5-25 mcg blister with device 1 inh inhalation QDAY Qty: 60 0RF insulin glargine [Basaglar KwikPen U-100 Insulin] 100 unit/mL (3 mL) insulin pen 26 unit subcut QPM Qty: 15 0RF methadone 10 mg/5 mL Solution 100 mg PO QDAY nitroglycerin 0.4 mg Tablet, Sublingual 0.4 mg BUCCAL Q5MIN PRN (Reason: Chest Pain) Discontinued spironolactone 50 mg tablet 50 mg PO QDAY Patient Comments: TAKE ONE TABLET BY MOUTH EVERY DAY nitroglycerin 0.4 mg tablet, sublingual See Rx Instructions .ROUTE .COMPLEX PRN (Reason: chest pain) Qty: 30 0RF Rx Instructions: mg buccally as needed tramadol 50 mg tablet 50 mg PO Q6H MDD 4 tabs PRN (Reason: pain) Qty: 20 0RF doxycycline hyclate 100 mg capsule 100 mg PO BID Qty: 6 0RF Eliquis DVT-PE Treat 30D Start 5 mg (74 tabs) tablets,dose pack 5 mg PO BID Qty: 74 0RF doxycycline monohydrate 100 mg capsule 100 mg PO BID Qty: 10 0RF Referrals: Apolinar Tai MD [Primary Care Provider] - Patient/Caregiver Discharge Instructions Other Discharge Activity Instructions:: Please take azithromycin for 5 days. Please take prednisone for 5 days. Continue using rest of home medications as prescribed. Follow-up with PCP within 1 week of discharge. Education Materials: Types of Insulin, Treatment for COPD Print Language: Korean Stand Alone Forms: Kaylynn Award Info., Patient Portal Info Letter Discharge Order Discharge Orders: Discharge (Routine); Ordered 09/30/24 Ordered By: Oscar Grande Quality Discharge Quality Measures VTE prophylaxis
--- NOTE | 2024-10-01 08:54 | PC.CC ---
Addendum entered by Marianna Kitchen RN 10/01/24 10:48: Pt booked with [facility], pending soc Original Note: Referrals sent no preference documented for agency
--- NOTE | 2024-10-03 08:57 | PC.CM ---
Patient accepted by [facility]. Start of care date 10/02.
== END 2024-09-30 11:39 | disposition home health service (06) | DRG 133 ==
LOC: SERX 16:54 → SERHOLD 22:39 → S3NX 09-27 02:16 → SERHOLD 09-27 11:33
PROVIDERS: Student in an Organized Health Care Education/Training Program; Admitting Provider Internal Medicine; Emergency Provider Emergency Medicine; PCP Family Medicine; Visit Provider Student in an Organized Health Care Education/Training Program
DX: J96.21 Acute and chronic respiratory failure with hypoxia (principal); I16.1 Hypertensive emergency; Z87.891 Personal history of nicotine dependence; Z86.711 Personal history of pulmonary embolism; I48.0 Paroxysmal atrial fibrillation; Z79.4 Long term (current) use of insulin; I11.0 Hypertensive heart disease with heart failure; I50.1 Left ventricular failure, unspecified; Z99.81 Dependence on supplemental oxygen; R82.71 Bacteriuria; N17.9 Acute kidney failure, unspecified; E87.5 Hyperkalemia; E11.65 Type 2 diabetes mellitus with hyperglycemia; J44.1 Chronic obstructive pulmonary disease with (acute) exacerbation; D72.829 Elevated white blood cell count, unspecified; T38.0X5A Adverse effect of glucocorticoids and synthetic analogues, initial encounter
CPT/HCPCS: 36415; 36600; 71045; 73501; 80048; 80053; 81001; 82803; 83036; 83605; 83690; 83735; 83880; 84100; 84132; 84145; 84439; 84443; 84484; 85025; 85610; 85730; 87040; 87086; 87400; 87811; 93225; 94640; 94644; 94660; 94664; 96365; 96367; 97162; 99285; A9270; G0378; J0456; J0696; J1815; J1940; J2405; J2470; J2919; J3475; J7030; J7050; J7512; J8540

== ENCOUNTER 2024-10-19 14:59 | Emergency (ER) | payer MEDICAID, SELFPAY ==
[2024-10-19 15:05] VITALS: BP 167/90; PULSE 86; RESP 17; TEMP 37.2; O2SAT 94; BMI 25.6
--- NOTE | 2024-10-19 15:43 | XR_ITS ---
Examination: CT brain head without contrast. 2-D sagittal coronal reconstructions Date and time of exam:October 19, 2024 1721 hours INDICATIONS: Patient fell last night with injury to the head, head pain COMPARISON: March 31, 2024 CTDI: vol (mGy):48.9 DLP: (mGycm):1048 Technique: Multiple CT axial sections of the brain have been obtained, 5 mm slice thickness. Contrast has not been administered. 2-D sagittal, coronal reconstructions have been obtained Low dose protocols were performed. One or more of the following dose reduction techniques were used; automated exposure control, adjustment of the mA and/or KV according to patient size, use of iterative reconstruction technique. Findings: No significant ventricular enlargement. Small old infarct left basal ganglia Intra-axial or extra-axial hemorrhage density is not seen. No mass effect or midline shift Basal cisterns are not remarkable. Fourth ventricle is midline. Cranial vault intact. Impression: Negative for acute hemorrhage, mass effect or midline shift
--- NOTE | 2024-10-19 15:43 | XR_ITS ---
Examination: AP chest single view Technique one AP portable upright chest single view Exam date and time: October 19, 2024 INDICATIONS: Shortness of breath today FINDINGS: Comparison September 26, 2024 Mild right base pneumonia Left lung clear No pulmonary edema Prominent osteopenia IMPRESSION: Mild right base pneumonia
--- NOTE | 2024-10-19 15:44 | XR_ITS ---
Examination: CT cervical spine without contrast 2-D sagittal reconstructions 2-D coronal reconstructions 3-D reconstructions. Exam date and time:October 19, 2024 1721 hours INDICATIONS: Patient fell last night with injury to the neck, neck pain CTDI:vol (mGy) 7.97 DLP: (mGycm) 191 Technique: Multiple 2 mm axial sections of the cervical spine have been obtained. The coronal and sagittal reconstructions have been obtained. 3-D reconstructions have been obtained. Low dose protocols were performed. One or more of the following dose reduction techniques were used; automated exposure control, adjustment of the mA and/or KV according to patient size, use of iterative reconstruction technique. Findings: Axial sections demonstrate intact base of the skull. Advanced degenerative disc disease C3-C4, C4-C5, C5-C6, C6-C7 C1 exhibit satisfactory relationship to the odontoid. No acute cervical vertebral body fracture seen. Alignment posterior spinous processes satisfactory. Impression: No acute cervical fracture.
--- NOTE | 2024-10-19 15:46 | EKG_ITS ---
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
[2024-10-19 15:59] VITALS: PULSE 83; RESP 18; O2SAT 95
[2024-10-19 16:12] VITALS: BP 176/90; PULSE 73; RESP 16; TEMP 36.8; O2SAT 96
[2024-10-19 16:32] LABS: Basophils % (Auto) 0 % (0-2.5); Eosinophils # (Auto) 0.3 Thou/mm3 (0.0-0.5); Eosinophils % (Auto) 4 % (0-10); Hematocrit 34.1 % (36.0-46.0); Hemoglobin 11.2 g/dL (12.0-16.0); Immature Granulocytes % (Auto) 1 % (0-0); Immature Granulocytes Auto 0.04 Thou/mm3 (0.00-0.00); Lymphocytes # (Auto) 2.2 Thou/mm3 (1.0-4.8); Lymphocytes % (Auto) 29 % (10-50); Mean Corpuscular HGB Conc 32.8 g/dl (31.0-37.0); Mean Corpuscular Hemoglobin 27.3 pg (25.0-35.0); Mean Corpuscular Volume 83 fL (80-100); Monocytes # (Auto) 0.7 Thou/mm3 (0.0-0.8); Monocytes % (Auto) 9 % (0-12); Neutrophils # (Auto) 4.3 Thou/mm3 (1.8-7.7); Neutrophils % (Auto) 57 % (37-80); Nucleated Red Blood Cell % 0 /100 WBC (0); Platelet Count 264 Thou/mm3 (140-440); RDW Standard Deviation 41.1 fL (36.4-46.3); Red Blood Count 4.11 Miln/mm3 (4.00-5.20); White Blood Count 7.5 Thou/mm3 (3.6-11.0)
[2024-10-19 16:56] LABS: Alanine Aminotransferase 16 U/L (10-49); Albumin, Serum 4.2 gm/dL (3.4-4.8); Albumin/Globulin Ratio 1.6 (1.2-2.2); Alkaline Phosphatase 56 U/L (46-116); Anion Gap 7 (7-16); Aspartate Amino Transferase 16 U/L (0-34); BUN/Creatinine Ratio 16 Ratio (12-20); Bilirubin,Total 0.4 mg/dL (0.3-1.2); Blood Urea Nitrogen 29 mg/dL (9-23); Calcium 9.5 mg/dL (8.3-10.6); Calcium (Corrected) 9.5 mg/dL (8.5-10.1); Carbon Dioxide 31.3 mMol/L (20.0-31.0); Chloride 102 mMol/L (98-107); Creatinine (Component) 1.8 mg/dL (0.6-1.3); Estimated Creatinine Clearance 31.4 mL/min (>60); Globulin 2.6 gm/dL (2.3-3.5); Glucose 99 mg/dL (74-106); Osmolality,Calculated 285 (275-295); Potassium 5.2 mMol/L (3.4-5.1); Sodium 140 mMol/L (136-145); Total Protein 6.8 gm/dL (5.7-8.2); eGFR 31 See Note
--- NOTE | 2024-10-19 17:18 | PD.EDFALL ---
ED Fall Injury RME/HPI General Chief Complaint: Neck Pain/Injury Stated Complaint: NECK PAIN Time Seen by Provider: 10/19/24 15:35 Arrival date/time: 10/19/24 14:59 RME / HPI RME / HPI Narrative: 64 year old female with history of AFib, hypertension, COPD on 2L home oxygen, diabetes, PE, recurrent hospital admissions for CHF and COPD exacerbations presents to the ED BIBA from home for evaluation of neck and back pain after ground level mechanical fall that occurred last night. States she got up to use the restroom with help of her walker and after taking one step felt dizzy causing her to fall backwards, striking the back of her head on the floor. Denies any loss of consciousness. Patient additionally complains of shortness of breath although is not any worse than her usual. Denies fevers, chills, sweats, chest pain. Patient mentioned she does have a prescription for Eliquis however does not take. Currently only on Aspirin. Related Data Home Medications ?Medication ?Instructions ?Recorded ?Confirmed methadone 10 mg/5 mL oral solution 100 mg PO QDAY 02/07/24 08/04/24 nitroglycerin 0.4 mg sublingual 0.4 mg buccal Q5MIN PRN Chest Pain 02/07/24 08/04/24 tablet Previous Rx's ?Medication ?Instructions ?Recorded tramadol 50 mg tablet 50 mg PO Q8H PRN pain #20 tabs 04/06/24 albuterol sulfate 90 mcg/actuation 1 puff inhalation QID PRN 08/06/24 aerosol inhaler shortness of breath or wheezing #8.5 grams aspirin 81 mg tablet,delayed 81 mg PO QDAY #30 tabs 08/06/24 release buspirone 5 mg tablet 5 mg PO QDAY #30 tabs 08/06/24 fluticasone fur. 200 mcg-umeclid 1 inh inhalation QDAY #60 ea 08/06/24 62.5 mcg-vilant 25 mcg inhalat.powder (Trelegy Ellipta) furosemide 20 mg tablet (Lasix) 20 mg PO QAM #30 tabs 08/06/24 hydralazine 100 mg tablet 100 mg PO TID #90 tabs 08/06/24 lactulose 10 gram/15 mL oral 10 g (15 mL) PO QDAY PRN 08/06/24 solution constipation #3,785 mL lidocaine 5 % topical patch 1 patch topical QDAY #30 ea 08/06/24 spironolactone 50 mg tablet 50 mg PO QDAY #30 tabs 08/06/24 insulin glargine 100 unit/mL (3 26 unit (0.26 mL) subcut QPM #15 mL 08/07/24 mL) subcutaneous pen (Basaglar KwikPen U-100 Insulin) apixaban 5 mg tablet 5 mg PO BID 30 days #60 tabs 09/28/24 Allergies Allergy/AdvReac Type Severity Reaction Status Date / Time codeine Allergy Severe RASH Verified 10/19/24 16:03 diphenhydramine HCl Allergy Severe Hives Verified 10/19/24 16:03 egg Allergy Severe Rash Verified 10/19/24 16:03 Penicillins Allergy Severe SWELLING, Verified 10/19/24 16:03 RESP DISTRESS pentazocine [From Evaristo] Allergy Severe Hives Verified 10/19/24 16:03 Review of Systems Review of Systems Narrative Review of Systems: Gen: No fever, no chills, no weight loss EYES: No discharge, no visual changes, no pain HEENT: No ear pain, no congestion, no sore throat PULM: no shortness of breath, no cough, no congestion CV: No chest pain, no dyspnea on exertion, no palpitations, no chest tightness GI: No nausea, no vomiting, no diarrhea, no pain, no constipation : No frequency, no urgency,? no dysuria Musc/skel: +neck and upper back pain Skin: No rash, no ecchymosis, no lesions Neuro: No weakness, no headache Past Medical History Past Medical History NEUROLOGIC: Positive Neurological Disorders and Cerebrovascular Accident CARDIAC: Positive Cardiac Disorders, Myocardial Infarction (X2), Cardiac Arrhythmia, Atrial Fibrillation, Angina, Hypercholesterolemia, Congestive Heart Failure, Edema and Hypertension RESPIRATORY: Positive Chronic Obstructive Pulmonary Disease (COPD), Asthma, Bronchitis, Emphysema and Pneumonia MUSCULOSKELETAL: Positive Musculoskeletal Disorders and Arthritis ENT: Positive Cataracts and Blind ENDOCRINE: Positive Endocrine Disorders and Diabetes Mellitus Type 2 HEMATOLOGIC: Positive Anemia PSYCHO/SOCIAL: Positive Recreational Drug Use, Depression and Anxiety OTHER HISTORY: Positive Hospitalization and Shingles Family History FAMILY HISTORY: Positive Family Cardiac Disorders Surgical History SURGICAL: Positive Eye Surgery, Tonsillectomy and Abdominal Surgery Social History SMOKING STATUS: Former smoker SECOND HAND EXPOSURE: No SUBSTANCE USE: former substance user, heroin and methamphetamine (Former drug use, states she quit 20 years ago; tested positive for methamphetamine 03/31/2023.) ED Exam Narrative Physical exam: GENERAL APPEARANCE: AxOx4, no obvious distress, nontoxic appearing HEENT: NC, AT. MMM. EOMI, clear conjunctiva, oropharynx clear. NECK: Supple without lymphadenopathy. No stiffness or restricted ROM. HEART: Normal rate and regular rhythm, normal S1/S1, no m/r/g LUNGS: Rhonchi bilaterally, moving air well. No crackles or wheezes are heard. ABDOMEN: Soft, nontender, nondistended with good bowel sounds heard. BACK: No midline C/T/L spine pain or deformity, No CVAT, no obvious deformity. EXTREMITIES: Without cyanosis, clubbing or edema. MUSCULOSKELETAL: FROM of all major joints, no chest tenderness NEUROLOGICAL: Grossly nonfocal. Alert and oriented, moving all 4 extremities. CN not formally tested but appear grossly intact. Skin: Warm and dry without any rash. Course Quality Measures none Orders Category Date Time Status EKG (ED ONLY) *Do not use* NOW Care 10/19/24 15:[address] cervical spine wo con Stat Exams 10/19/24 15:[address] head/brain wo con Stat Exams 10/19/24 15:43 Completed EKG (ED Only) Stat Exams 10/19/24 15:46 Draft XR chest 1V Stat Exams 10/19/24 15:43 Completed CBC Stat Lab 10/19/24 16:26 Completed CMP [Comprehensive Metabolic Panel] Stat Lab 10/19/24 16:26 Completed Urinalysis Stat Lab 10/19/24 15:43 Ordered Sodium Chloride 0.9% 1000 ml [Ns] 1,000 ml Med 10/19/24 16:59 Discontinued IV 999 mls/hr Vital Signs Vital signs: Vital Signs Temperature 99.0 F 10/19/24 15:05 Pulse Rate 86 10/19/24 15:05 Respiratory Rate 17 10/19/24 15:05 Blood Pressure 167/90 H 10/19/24 15:05 Pulse Oximetry (%) 94 L 10/19/24 15:05 Oxygen Delivery Method Nasal Cannula 10/19/24 15:05 Oxygen Flow Rate 2 10/19/24 15:05 Pulse ox is 94% on 2L nasal cannula which is adequate. Fall MDM Narrative MDM Narrative:: I, Anju Rivera, am scribing for and in the presence of Dr. Murrell. Patient data External records reviewed:: [facility] previous records (I reviewed admission from 09/26/2024 through 09/30/2024) and EMS form Clinical information provided by:: patient and EMS Social determinants that could affect healthcare access:: none Patient has the following chronic illnesses:: AFib, hypertension, COPD on 2L home oxygen, diabetes, PE, recurrent hospital admissions for CHF and COPD exacerbations How is presenting disease/condition affected by chronic disease/condition?: exacerbated by Evaluation data The following diagnostics were reviewed and interpreted by me:: lab results, radiology exam(s) and EKG tracing(s) (Sinus rhythm, rate 71, normal axis, normal intervals, no acute ST changes, no STEMI. ) Lab and/or radiology exams considered but not ordered:: None Interpretation Summary: Ordering Physician: Flavio Murrell MD Date of Service: 10/19/24 Procedure(s): XR chest 1V Accession Number(s): [id number] cc: Flavio Murrell MD; Acosta Kumari MD~ Examination: AP chest single view Technique one AP portable upright chest single view Exam date and time: October 19, 2024 INDICATIONS: Shortness of breath today FINDINGS: Comparison September 26, 2024 Mild right base pneumonia Left lung clear No pulmonary edema Prominent osteopenia IMPRESSION: Mild right base pneumonia Dictated By: Acosta Kumari MD Signed By: <Electronically signed by Acosta Kumari MD in OV> 10/19/24 1655 Medications / Prescriptions Medications or Prescriptions considered but not ordered:: None Medication administrations:: Medication Administration History Discontinued Medications Sodium Chloride (Ns) 1,000 mls @ 999 mls/hr IV .Q1H1M ONE Stop: 10/19/24 17:59 Last Admin: 10/19/24 17:32 Dose: 999 mls/hr Documented By: BOB See above Consultations Consultation(s) initiated? (list below): No Diagnosis Fall Differential Diagnosis: syncope and other (Neck strain, back pain ) Most likely diagnosis given after review of the tests above:: Workup in progress Admission Indicated Admission indicated?: not indicated Explain why admission is indicated or not indicated:: Patient signed out to Dr. Murrell pending CT's. Admission Request Was there a request for admission?: No Disposition Plan Disposition Plan: other (specify) (Patient signed out to Dr. Rodriguez pending CTs.) Discharge Plan Prescriptions/Referrals Prescriptions/Med Rec: No Action tramadol 50 mg tablet 50 mg PO Q8H PRN (Reason: pain) Qty: 20 0RF hydralazine 100 mg tablet 100 mg PO TID Qty: 90 0RF albuterol sulfate 90 mcg/actuation HFA aerosol inhaler 1 puff inhalation QID PRN (Reason: shortness of breath or wheezing) Qty: 8.5 0RF aspirin 81 mg tablet,delayed release (DR/EC) 81 mg PO QDAY Qty: 30 0RF buspirone 5 mg tablet 5 mg PO QDAY Qty: 30 0RF furosemide [Lasix] 20 mg tablet 20 mg PO QAM Qty: 30 0RF lactulose 10 gram/15 mL solution 10 g PO QDAY PRN (Reason: constipation) Qty: 3785 0RF lidocaine 5 % adhesive patch,medicated 1 patch topical QDAY Qty: 30 0RF Rx Instructions: leave on most painful area for up to 12 hrs spironolactone 50 mg tablet 50 mg PO QDAY Qty: 30 0RF Trelegy Ellipta 200-62.5-25 mcg blister with device 1 inh inhalation QDAY Qty: 60 0RF insulin glargine [Basaglar KwikPen U-100 Insulin] 100 unit/mL (3 mL) insulin pen 26 unit subcut QPM Qty: 15 0RF methadone 10 mg/5 mL Solution 100 mg PO QDAY nitroglycerin 0.4 mg Tablet, Sublingual 0.4 mg BUCCAL Q5MIN PRN (Reason: Chest Pain) apixaban 5 mg tablet 5 mg PO BID 30 Days Qty: 60 0RF Referrals: Apolinar Tai MD [Primary Care Provider] - In 1 week Problem List Clinical Impression: Pre-syncope, Ground-level fall, CHI (closed head injury) Patient/Caregiver Discharge Instructions Print Language: Tuvaluan
[2024-10-19] MEDS: SODIUM CHLORIDE 0.9% 1000 ML 1,000 ML 999 ML IV (17:32)
--- NOTE | 2024-10-19 18:29 | EDNOTE_ITS ---
Emergency Room Addendum <Vale Atkinson - Last Filed: 10/19/24 21:54> Addendum Narrative: 1800: Care assumed from Dr. Murrell, the previous shift emergency physician. Past medical, surgical, social and family history reviewed. Vitals and home medications reviewed. I will assume the care of the patient at this time, pending cervical CT, head CT, U/A, and final disposition. Please refer to the emergency department record for history and examination from initial visit.? Physical exam by me shows patient under no acute distress at this time. RADIOLOGY Procedure(s): CT cervical spine wo con Accession Number(s): [id number] cc: Apolinar Tai MD; Flavio Murrell MD; Acosta Kumari MD~ Examination: CT cervical spine without contrast 2-D sagittal reconstructions 2-D coronal reconstructions 3-D reconstructions. Exam date and time:October 19, 2024 1721 hours INDICATIONS: Patient fell last night with injury to the neck, neck pain CTDI:vol (mGy) 7.97 DLP: (mGycm) 191 Technique: Multiple 2 mm axial sections of the cervical spine have been obtained. The coronal and sagittal reconstructions have been obtained. 3-D reconstructions have been obtained. Low dose protocols were performed. One or more of the following dose reduction techniques were used; automated exposure control, adjustment of the mA and/or KV according to patient size, use of iterative reconstruction technique. Findings: Axial sections demonstrate intact base of the skull. Advanced degenerative disc disease C3-C4, C4-C5, C5-C6, C6-C7 C1 exhibit satisfactory relationship to the odontoid. No acute cervical vertebral body fracture seen. Alignment posterior spinous processes satisfactory. Impression: No acute cervical fracture. Dictated By: Acosta Kumari MD Procedure(s): CT head/brain wo con Accession Number(s): [id number] cc: Apolinar Tai MD; Flavio Murrell MD; Acosta Kumari MD~ Examination: CT brain head without contrast. 2-D sagittal coronal reconstructions Date and time of exam:October 19, 2024 1721 hours INDICATIONS: Patient fell last night with injury to the head, head pain COMPARISON: March 31, 2024 CTDI: vol (mGy):48.9 DLP: (mGycm):1048 Technique: Multiple CT axial sections of the brain have been obtained, 5 mm slice thickness. Contrast has not been administered. 2-D sagittal, coronal reconstructions have been obtained Low dose protocols were performed. One or more of the following dose reduction techniques were used; automated exposure control, adjustment of the mA and/or KV according to patient size, use of iterative reconstruction technique. Findings: No significant ventricular enlargement. Small old infarct left basal ganglia Intra-axial or extra-axial hemorrhage density is not seen. No mass effect or midline shift Basal cisterns are not remarkable. Fourth ventricle is midline. Cranial vault intact. Impression: Negative for acute hemorrhage, mass effect or midline shift Dictated By: Acosta Kumari MD <Modesta Tai - Last Filed: 10/20/24 01:47> Addendum Narrative: 1800: Care assumed from Dr. Murrell, the previous shift emergency physician. Past medical, surgical, social and family history reviewed. Vitals and home medications reviewed. I will assume the care of the patient at this time, pending cervical CT, head CT, U/A, and final disposition. Please refer to the emergency department record for history and examination from initial visit.? Physical exam by me shows patient under no acute distress at this time. Patient has been resting comfortably throughout the night. Patient is stable to be discharged and is requesting pain medication before she goes home. RADIOLOGY Procedure(s): CT cervical spine wo con Accession Number(s): [id number] cc: Apolinar Tai MD; Flavio Murrell MD; Acosta Kumari MD~ Examination: CT cervical spine without contrast 2-D sagittal reconstructions 2-D coronal reconstructions 3-D reconstructions. Exam date and time:October 19, 2024 1721 hours INDICATIONS: Patient fell last night with injury to the neck, neck pain CTDI:vol (mGy) 7.97 DLP: (mGycm) 191 Technique: Multiple 2 mm axial sections of the cervical spine have been obtained. The coronal and sagittal reconstructions have been obtained. 3-D reconstructions have been obtained. Low dose protocols were performed. One or more of the following dose reduction techniques were used; automated exposure control, adjustment of the mA and/or KV according to patient size, use of iterative reconstruction technique. Findings: Axial sections demonstrate intact base of the skull. Advanced degenerative disc disease C3-C4, C4-C5, C5-C6, C6-C7 C1 exhibit satisfactory relationship to the odontoid. No acute cervical vertebral body fracture seen. Alignment posterior spinous processes satisfactory. Impression: No acute cervical fracture. Dictated By: Acosta Kumari MD Procedure(s): CT head/brain wo con Accession Number(s): [id number] cc: Apolinar Tai MD; Flavio Murrell MD; Acosta Kumari MD~ Examination: CT brain head without contrast. 2-D sagittal coronal reconstructions Date and time of exam:October 19, 2024 1721 hours INDICATIONS: Patient fell last night with injury to the head, head pain COMPARISON: March 31, 2024 CTDI: vol (mGy):48.9 DLP: (mGycm):1048 Technique: Multiple CT axial sections of the brain have been obtained, 5 mm slice thickness. Contrast has not been administered. 2-D sagittal, coronal reconstructions have been obtained Low dose protocols were performed. One or more of the following dose reduction techniques were used; automated exposure control, adjustment of the mA and/or KV according to patient size, use of iterative reconstruction technique. Findings: No significant ventricular enlargement. Small old infarct left basal ganglia Intra-axial or extra-axial hemorrhage density is not seen. No mass effect or midline shift Basal cisterns are not remarkable. Fourth ventricle is midline. Cranial vault intact. Impression: Negative for acute hemorrhage, mass effect or midline shift Dictated By: Acosta Kumari MD
[2024-10-19 18:34] VITALS: BP 120/67; PULSE 71; RESP 20; TEMP 36.9; O2SAT 95
[2024-10-19 19:42] LABS: Collection Type, Urine Clean Catch
[2024-10-19 20:00] LABS: Bilirubin,Urine Negative (Negative); Blood,Urine 2+ (Negative); Color,Urine Yellow (Lt Yel-Yel); Glucose, Urine Negative (Negative); Hyaline Casts,Urine 1 /hpf (0-1); Ketones,Urine Negative (Negative); Leukocyte Esterase,Urine Positive (Negative); Nitrite,Urine Negative (Negative); Protein,Urine 1+ (Neg - Trace); RBC,Urine 144 /hpf (0-3); Specific Gravity,Urine 1.017 (1.001-1.035); Squamous Epithelial Cell,Urine 9 /hpf (0-5); Urobilinogen,Urine Negative mg/dL (0.0-1.0); WBC,Urine 515 /hpf (0-5)
[2024-10-19 20:01] LABS: Clarity,Urine Turbid (Clear/Hazy)
[2024-10-19 22:08] VITALS: BP 166/82; PULSE 66; RESP 20; TEMP 36.9; O2SAT 95
[2024-10-20] VITALS: BP 137/64; PULSE 62; RESP 16; O2SAT 90
[2024-10-20] MEDS: ACETAMINOPHEN 325 MG TABLET 650 MG PO (02:00)
== END 2024-10-20 03:00 | disposition home or self-care (01) ==
PROVIDERS: Emergency Medicine; Emergency Provider Emergency Medicine; PCP Family Medicine
DX: R55 Syncope and collapse (principal); S09.90XA Unspecified injury of head, initial encounter; W18.39XA Other fall on same level, initial encounter; I48.91 Unspecified atrial fibrillation; J44.9 Chronic obstructive pulmonary disease, unspecified; I11.0 Hypertensive heart disease with heart failure; I50.9 Heart failure, unspecified; Z99.81 Dependence on supplemental oxygen; Z86.711 Personal history of pulmonary embolism
CPT/HCPCS: 36415; 70450; 71045; 72125; 80053; 81001; 85025; 93005; 96360; 96361; 99284; J7030; A9270

== ENCOUNTER 2024-10-23 10:52 | Emergency (ER) | payer MEDICAID, SELFPAY ==
[2024-10-23 10:57] VITALS: BP 153/80; PULSE 101; RESP 18; TEMP 36.6; O2SAT 93
[2024-10-23 11:21] VITALS: BP 149/92; PULSE 115; PULSE 92; RESP 21; RESP 28; TEMP 36.8; O2SAT 92; O2SAT 94; BMI 25.6
--- NOTE | 2024-10-23 11:22 | PD.EDADULT ---
ED General RME/HPI General Chief complaint: Ear Stated complaint: CHEST PAIN Time Seen by Provider: 10/23/24 11:20 Arrival date/time: 10/23/24 10:52 CC: Chest pain HPI patient presents the ER via EMS from the clinic where the patient reported chest pain after going to the clinic for follow-up on ear pain. The patient is awake alert oriented and when she points to the area where she is hurting it is her upper abdomen, there is no chest pain but upper abdominal pain that is reproducible with palpation. Patient denies fever chills or cough. Patient is on 2 L nasal cannula baseline. Related Data Home Medications ?Medication ?Instructions ?Recorded ?Confirmed methadone 10 mg/5 mL oral solution 100 mg PO QDAY 02/07/24 08/04/24 nitroglycerin 0.4 mg sublingual 0.4 mg buccal Q5MIN PRN Chest Pain 02/07/24 08/04/24 tablet Previous Rx's ?Medication ?Instructions ?Recorded tramadol 50 mg tablet 50 mg PO Q8H PRN pain #20 tabs 04/06/24 albuterol sulfate 90 mcg/actuation 1 puff inhalation QID PRN 08/06/24 aerosol inhaler shortness of breath or wheezing #8.5 grams aspirin 81 mg tablet,delayed 81 mg PO QDAY #30 tabs 08/06/24 release buspirone 5 mg tablet 5 mg PO QDAY #30 tabs 08/06/24 fluticasone fur. 200 mcg-umeclid 1 inh inhalation QDAY #60 ea 08/06/24 62.5 mcg-vilant 25 mcg inhalat.powder (Trelegy Ellipta) furosemide 20 mg tablet (Lasix) 20 mg PO QAM #30 tabs 08/06/24 hydralazine 100 mg tablet 100 mg PO TID #90 tabs 08/06/24 lactulose 10 gram/15 mL oral 10 g (15 mL) PO QDAY PRN 08/06/24 solution constipation #3,785 mL lidocaine 5 % topical patch 1 patch topical QDAY #30 ea 08/06/24 spironolactone 50 mg tablet 50 mg PO QDAY #30 tabs 08/06/24 insulin glargine 100 unit/mL (3 26 unit (0.26 mL) subcut QPM #15 mL 08/07/24 mL) subcutaneous pen (Basaglar KwikPen U-100 Insulin) ciprofloxacin HCl 500 mg tablet 500 mg PO BID #14 tabs 10/23/24 (Cipro) meclizine 50 mg tablet 50 mg PO BID PRN dizziness or 10/27/24 vertigo #10 tabs ondansetron 4 mg disintegrating 4 mg PO Q8H PRN nausea and 10/27/24 tablet vomiting #10 tabs albuterol sulfate 90 mcg/actuation 2 inh inhalation Q6H PRN shortness 11/01/24 breath activated powder of breath or wheezing #1 ea inhaler,sensor (Proair Digihaler) prednisone 50 mg tablet 50 mg PO QDAY #7 tabs 11/01/24 Allergies Allergy/AdvReac Type Severity Reaction Status Date / Time codeine Allergy Severe RASH Verified 11/08/24 12:49 diphenhydramine HCl Allergy Severe Hives Verified 11/08/24 12:49 egg Allergy Severe Rash Verified 11/08/24 12:49 Penicillins Allergy Severe SWELLING, Verified 11/08/24 12:49 RESP DISTRESS pentazocine (From Evaristo) Allergy Severe Hives Verified 11/08/24 12:49 Review of Systems Review of Systems Narrative Review of Systems: GEN: No fever, no chills, no weight loss EYES: No discharge, no visual changes, no pain HEENT: No ear pain, no congestion, no sore throat PULM: No shortness of breath, no cough, no congestion CV: + chest pain , no dyspnea on exertion, no palpitations GI: No nausea, no vomiting, no diarrhea, no pain, no constipation : No frequency, no urgency, no dysuria MUSC/SKEL: No joint pain, no back pain SKIN: No rash PSYCH: No hallucinations, no depression HEME/LYMPH: No easy bleeding or bruising tendencies NEURO: No weakness, no headache ED Exam Narrative Physical exam: [General: Obese not in any acute distress Head normocephalic HEENT: Within acceptable limits Neck is supple nontender Chest equal chest rise nontender to palpation Respiratory: Clear to auscultation no wheezes crackles or rubs CV: Rate rhythm is regular no murmurs rubs or clicks Abdomen epigastric and left upper quadrant abdominal pain with palpation reflexive guarding no rebound tenderness no right upper quadrant pain and no lower quadrant pain with palpation. Back: No CVA tenderness no spinous process tenderness from cervical spine thoracic and lumbar spine Skin: Intact no petechiae rash induration ulceration or crepitus Extremities: Moving all extremity against resistance cap refill less than 2 seconds neurosensory intact Neuro: Awake alert oriented x3 Glascow coma 15 no focal deficits] Course Quality Measures none Orders Category Date Time Status EKG (ED ONLY) *Do not use* NOW Care 10/23/24 11:21 Completed EKG (ED Only) Stat Exams 10/23/24 11:21 Ordered B-Type Natriuretic Peptide Stat Lab 10/23/24 11:52 Completed CBC Stat Lab 10/23/24 11:52 Completed Comprehensive Metabolic Panel Stat Lab 10/23/24 11:52 Completed Drug Screen,Urine Stat Lab 10/23/24 13:18 Completed Lipase Stat Lab 10/23/24 11:52 Completed Magnesium Stat Lab 10/23/24 11:52 Completed Partial Thromboplastin Time Stat Lab 10/23/24 11:52 Completed Prothrombin Time with INR Stat Lab 10/23/24 11:52 Completed Troponin I Stat Lab 10/23/24 11:52 Completed Troponin I Stat Lab 10/23/24 13:50 Completed Urinalysis Stat Lab 10/23/24 13:18 Completed Acetaminophen Tab [Tylenol Tab] Med 10/23/24 13:05 Discontinued 650 mg PO X1 ONE cefTRIAXone [Rocephin] 1,000 mg Med 10/23/24 15:32 Discontinued Lidocaine 1% 20 ml [Xylocaine 1% 20 ML] 2.1 ml IM X1 cefTRIAXone/D5w 1gm IV premix [Rocephin/D5w 1gm IV Med 10/23/24 15:26 Discontinued premix] 50 ml IV X1 Vital Signs Vital signs: Vital Signs Temperature 97.9 F 10/23/24 10:57 Pulse Rate 101 H 10/23/24 10:57 Respiratory Rate 18 10/23/24 10:57 Blood Pressure 153/80 H 10/23/24 10:57 Pulse Oximetry (%) 93 L 10/23/24 10:57 Oxygen Delivery Method Room Air 10/23/24 10:57 [facility] Patient data External records reviewed:: [facility] previous records and EMS form Clinical information provided by:: patient and EMS Social determinants that could affect healthcare access:: none Patient has the following chronic illnesses:: History includes hypertension COPD on 2 L nasal cannula insulin-dependent type 2 diabetes pulmonary embolism Takotsubo's cardiomyopathy A-fib on methadone. How is presenting disease/condition affected by chronic disease/condition?: uneffected by Evaluation data The following diagnostics were reviewed and interpreted by me:: lab results, radiology exam(s) and EKG tracing(s) Lab and/or radiology exams considered but not ordered:: EKG performed at 1210 shows ventricular rate of 89 VA interval 144 QRS of 9 6 QTc of 399 is normal sinus rhythm CBC shows no leukocytosis and H&H of 10 and 32 which is stable anemia no thrombocytopenia Coags within acceptable limits good morning CMP shows a sodium 135 potassium of 4.8 chloride of 100 CO2 of 26.2 BUN of 24 creatinine 1.4 and glucose of 186. Troponin is negative, delta troponin is negative BNP is negative Lipase is 30 Urine is positive for urinary tract infection. Interpretation Summary: Patient is complain of chronic ear pain has been ongoing for 9 months, assessment of the ear show there is no acute finding occluding wax erythema or edema. Patient will be given Rocephin here and discharged home on antibiotics. Medications Medications considered but not ordered:: None Medication administrations:: Medication Administration History Discontinued Medications Acetaminophen (Acetaminophen 325 Mg Tablet) 650 mg PO X1 ONE Stop: 10/23/24 13:06 Last Admin: 10/23/24 13:08 Dose: 650 mg Documented By: LIZ Ceftriaxone Sodium 1,000 mg/ (Lidocaine HCl 2.1 ml) 0 mg IM X1 ONE Stop: 10/23/24 15:33 Last Admin: 10/23/24 15:44 Dose: 1,000 mg Documented By: LIZ Ceftriaxone Sodium/Dextrose (Rocephin/D5w 1gm Iv Premix) 50 mls @ 100 mls/hr IV X1 ONE Stop: 10/23/24 15:55 None Consultations Consultation(s) initiated? (list below): No Diagnosis Differential Diagnosis ED Complaint MDM: ACS [place] pneumonia Most likely diagnosis given after review of the tests above:: UTI abdominal pain Admission Indicated Admission indicated?: not indicated Explain why admission is indicated or not indicated:: Stable for discharge Admission Request Was there a request for admission?: No Disposition Plan Disposition Plan: Discharge Discharge Attestation Discharge Attestation: The patient and all family members were given an opportunity to ask questions and understood the discharge instructions. Discharge instructions specifically effects, indications for sooner follow up or return to the emergency department, and the expected course of current diagnosis. Patient condition: Stable Medical Decision Making Differential Diagnosis Differential Diagnosis: ACS [place] pneumonia Lab Data 10/23/24 11:52 10/23/24 11:52 Labs: Lab Results 10/23/24 10/23/24 10/23/24 Range/Units 11:52 13:18 13:50 WBC 9.3 (3.6-11.0) Thou/mm3 RBC 3.99 L (4.00-5.20) Miln/mm3 Hgb 10.8 L (12.0-16.0) g/dL Hct 33.2 L (36.0-46.0) % MCV 83 (80-100) fL MCH 27.1 (25.0-35.0) pg MCHC 32.5 (31.0-37.0) g/dl RDW Std Deviation 41.4 (36.4-46.3) fL Plt Count 269 (140-440) Thou/mm3 Neut % (Auto) 74 (37-80) % Lymph % (Auto) 17 (10-50) % [place] % (Auto) 7 (0-12) % Eos % (Auto) 1 (0-10) % Baso % (Auto) 0 (0-2.5) % Neut # (Auto) 6.9 (1.8-7.7) Thou/mm3 Lymph # (Auto) 1.6 (1.0-4.8) Thou/mm3 [place] # (Auto) 0.7 (0.0-0.8) Thou/mm3 Eos # (Auto) 0.1 (0.0-0.5) Thou/mm3 Baso # (Auto) 0.0 (0.0-0.2) Thou/mm3 Immature Gran # (Auto) 0.07 H (0.00-0.00) Thou/mm3 Absolute Nucleated RBC 0.00 (0.00-0.00) Thou/mm3 Immature Gran % 1 H (0-0) % Nucleated RBC % 0 (0) /100 WBC PT 10.9 (9.0-12.2) Seconds INR 1.0 (0.9-1.3) APTT 24.6 (22.0-36.0) Seconds Sodium 135 L (136-145) mMol/L Potassium 4.8 (3.4-5.1) mMol/L Chloride 100 (98-107) mMol/L Carbon Dioxide 26.2 (20.0-31.0) mMol/L Anion Gap 9 (7-16) BUN 24 H (9-23) mg/dL Creatinine 1.4 H (0.6-1.3) mg/dL Estim Creat Clear Calc 40.3 L (>60) mL/min eGFR 42 L (60 - ) See Note BUN/Creatinine Ratio 17 (12-20) Ratio Glucose 186 H (74-106) mg/dL Calculated Osmolality 279 (275-295) Calcium 10.3 (8.3-10.6) mg/dL Corrected Calcium 10.3 H (8.5-10.1) mg/dL Magnesium 1.7 (1.6-2.6) mg/dL Total Bilirubin 0.5 (0.3-1.2) mg/dL AST < 8 (0-34) U/L ALT 13 (10-49) U/L Alkaline Phosphatase 56 (46-116) U/L Troponin I < 0.020 < 0.020 (0.0-0.045) ng/mL B-Natriuretic Peptide < 20 (0-100) pg/mL Total Protein 6.9 (5.7-8.2) gm/dL Albumin 4.4 (3.4-4.8) gm/dL Globulin 2.5 (2.3-3.5) gm/dL Albumin/Globulin Ratio 1.8 (1.2-2.2) Lipase 30 (12-53) U/L Ur Collection Type Clean Catch Urine Color Lt-Yellow (Lt Yel-Yel) Urine Clarity Turbid A (Clear/Hazy) Urine pH 6.0 (5.0-7.0) Ur Specific [place] 1.010 (1.001-1.035) Urine Protein Trace (Neg - Trace) Urine Glucose (UA) Negative (Negative) Urine Ketones Negative (Negative) Urine Blood 1+ A (Negative) Urine Nitrite Negative (Negative) Urine Bilirubin Negative (Negative) Urine Urobilinogen (Auto) Negative (0.0-1.0) mg/dL Ur Leukocyte Esterase Positive (Negative) Urine RBC 64 H (0-3) /hpf Urine WBC 142 H (0-5) /hpf Ur Squamous Epith Cells 7 H (0-5) /hpf Urine Bacteria None (None) Hyaline Casts 1 (0-1) /hpf Urine Opiates Screen Negative (Negative) Urine Fentanyl Screen Negative (Negative) Ur Barbiturates Screen Negative (Negative) U Amphetamin/Meth Scrn Negative (Negative) U Benzodiazepines Scrn Negative (Negative) U Cocaine Metab Screen Negative (Negative) U Marijuana (THC) Screen Negative (Negative) Discharge Plan Plan Patient Disposition: HOME (Self Care) Patient condition on transfer: Stable Prescriptions/Referrals Prescriptions/Med Rec: New ciprofloxacin HCl [Cipro] 500 mg tablet 500 mg PO BID Qty: 14 0RF No Action tramadol 50 mg tablet 50 mg PO Q8H PRN (Reason: pain) Qty: 20 0RF hydralazine 100 mg tablet 100 mg PO TID Qty: 90 0RF albuterol sulfate 90 mcg/actuation HFA aerosol inhaler 1 puff inhalation QID PRN (Reason: shortness of breath or wheezing) Qty: 8.5 0RF aspirin 81 mg tablet,delayed release (DR/EC) 81 mg PO QDAY Qty: 30 0RF buspirone 5 mg tablet 5 mg PO QDAY Qty: 30 0RF furosemide [Lasix] 20 mg tablet 20 mg PO QAM Qty: 30 0RF lactulose 10 gram/15 mL solution 10 g PO QDAY PRN (Reason: constipation) Qty: 3785 0RF lidocaine 5 % adhesive patch,medicated 1 patch topical QDAY Qty: 30 0RF Rx Instructions: leave on most painful area for up to 12 hrs spironolactone 50 mg tablet 50 mg PO QDAY Qty: 30 0RF Trelegy Ellipta 200-62.5-25 mcg blister with device 1 inh inhalation QDAY Qty: 60 0RF insulin glargine [Basaglar KwikPen U-100 Insulin] 100 unit/mL (3 mL) insulin pen 26 unit subcut QPM Qty: 15 0RF methadone 10 mg/5 mL Solution 100 mg PO QDAY nitroglycerin 0.4 mg Tablet, Sublingual 0.4 mg BUCCAL Q5MIN PRN (Reason: Chest Pain) ondansetron 4 mg tablet,disintegrating 4 mg PO Q8H PRN (Reason: nausea and vomiting) Qty: 10 0RF meclizine 50 mg tablet 50 mg PO BID PRN (Reason: dizziness or vertigo) Qty: 10 0RF Proair Digihaler 90 mcg/actuation aero powdr breath act w/sensor 2 inh inhalation Q6H PRN (Reason: shortness of breath or wheezing) Qty: 1 0RF prednisone 50 mg tablet 50 mg PO QDAY Qty: 7 0RF Referrals: Apolinar Tai MD [Primary Care Provider] - In 1 week Problem List Clinical Impression: Abdominal pain, UTI (urinary tract infection) Patient/Caregiver Discharge Instructions Education Materials: Abdominal Pain, ED CYSTITIS Female Adult Print Language: Icelandic Stand Alone Forms: Kaylynn Award Info., Work/School Release, Patient Portal Info Letter PA/PROVIDER RELATIONS SPECIALIST Supervising Physician PA/PROVIDER RELATIONS SPECIALIST Supervising Physician: Matt Pena ENP
[2024-10-23 12:01] LABS: Basophils % (Auto) 0 % (0-2.5); Eosinophils # (Auto) 0.1 Thou/mm3 (0.0-0.5); Eosinophils % (Auto) 1 % (0-10); Hematocrit 33.2 % (36.0-46.0); Hemoglobin 10.8 g/dL (12.0-16.0); Immature Granulocytes % (Auto) 1 % (0-0); Immature Granulocytes Auto 0.07 Thou/mm3 (0.00-0.00); Lymphocytes # (Auto) 1.6 Thou/mm3 (1.0-4.8); Lymphocytes % (Auto) 17 % (10-50); Mean Corpuscular HGB Conc 32.5 g/dl (31.0-37.0); Mean Corpuscular Hemoglobin 27.1 pg (25.0-35.0); Mean Corpuscular Volume 83 fL (80-100); Monocytes # (Auto) 0.7 Thou/mm3 (0.0-0.8); Monocytes % (Auto) 7 % (0-12); Neutrophils # (Auto) 6.9 Thou/mm3 (1.8-7.7); Neutrophils % (Auto) 74 % (37-80); Nucleated Red Blood Cell % 0 /100 WBC (0); Platelet Count 269 Thou/mm3 (140-440); RDW Standard Deviation 41.4 fL (36.4-46.3); Red Blood Count 3.99 Miln/mm3 (4.00-5.20); White Blood Count 9.3 Thou/mm3 (3.6-11.0)
[2024-10-23 12:17] LABS: Partial Thromboplastin Time 24.6 Seconds (22.0-36.0); Prothrombin Time 10.9 Seconds (9.0-12.2)
[2024-10-23 12:21] LABS: B-Type Natriuretic Peptide < 20 pg/mL (0-100)
[2024-10-23 12:24] LABS: Alanine Aminotransferase 13 U/L (10-49); Albumin, Serum 4.4 gm/dL (3.4-4.8); Albumin/Globulin Ratio 1.8 (1.2-2.2); Alkaline Phosphatase 56 U/L (46-116); Anion Gap 9 (7-16); Aspartate Amino Transferase < 8 U/L (0-34); BUN/Creatinine Ratio 17 Ratio (12-20); Bilirubin,Total 0.5 mg/dL (0.3-1.2); Blood Urea Nitrogen 24 mg/dL (9-23); Calcium 10.3 mg/dL (8.3-10.6); Calcium (Corrected) 10.3 mg/dL (8.5-10.1); Carbon Dioxide 26.2 mMol/L (20.0-31.0); Chloride 100 mMol/L (98-107); Creatinine (Component) 1.4 mg/dL (0.6-1.3); Estimated Creatinine Clearance 40.3 mL/min (>60); Globulin 2.5 gm/dL (2.3-3.5); Glucose 186 mg/dL (74-106); Lipase 30 U/L (12-53); Magnesium 1.7 mg/dL (1.6-2.6); Osmolality,Calculated 279 (275-295); Potassium 4.8 mMol/L (3.4-5.1); Sodium 135 mMol/L (136-145); Total Protein 6.9 gm/dL (5.7-8.2); Troponin I < 0.020 ng/mL (0.0-0.045); eGFR 42 See Note
[2024-10-23] MEDS: ACETAMINOPHEN 325 MG TABLET 650 MG PO (13:08)
[2024-10-23 13:27] LABS: Collection Type, Urine Clean Catch
[2024-10-23 13:43] LABS: Amphetamine/Methamp Scrn,U Negative (Negative); Barbiturate Screen,Urine Negative (Negative); Benzodiazepines Screen,Urine Negative (Negative); Benzoylecgonine Screen, Ur Negative (Negative); Fentanyl Screen,Urine Negative (Negative); Opiate Screen,Urine Negative (Negative); THC Screen,Urine Negative (Negative)
[2024-10-23 13:53] LABS: Bilirubin,Urine Negative (Negative); Blood,Urine 1+ (Negative); Clarity,Urine Turbid (Clear/Hazy); Color,Urine Lt-Yellow (Lt Yel-Yel); Glucose, Urine Negative (Negative); Hyaline Casts,Urine 1 /hpf (0-1); Ketones,Urine Negative (Negative); Leukocyte Esterase,Urine Positive (Negative); Nitrite,Urine Negative (Negative); Protein,Urine Trace (Neg - Trace); RBC,Urine 64 /hpf (0-3); Squamous Epithelial Cell,Urine 7 /hpf (0-5); Urobilinogen,Urine Negative mg/dL (0.0-1.0); WBC,Urine 142 /hpf (0-5)
[2024-10-23 14:13] VITALS: BP 165/82; PULSE 84; RESP 16; TEMP 36.8; O2SAT 95
[2024-10-23 14:20] VITALS: BP 149/92; PULSE 85; RESP 17; O2SAT 96
[2024-10-23 14:29] LABS: Troponin I < 0.020 ng/mL (0.0-0.045)
[2024-10-23] MEDS: cefTRIAXone 1,000 MG, LIDOCAINE 1% 20 ML 2.1 ML IM (15:44)
== END 2024-10-23 16:00 | disposition home or self-care (01) ==
PROVIDERS: Registered Nurse General Practice; Emergency Provider Emergency Medicine; PCP Family Medicine
DX: N39.0 Urinary tract infection, site not specified (principal); I48.91 Unspecified atrial fibrillation; I10 Essential (primary) hypertension
CPT/HCPCS: 36415; 80053; 80307; 81001; 83690; 83735; 83880; 84484; 85025; 85610; 85730; 93005; 96372; 99283; J0696; J3490; A9270

== ENCOUNTER 2024-10-24 23:27 | Emergency (ER) | payer MEDICAID, SELFPAY ==
[2024-10-24 23:30] VITALS: BP 169/77; PULSE 102; RESP 20; TEMP 37.1; O2SAT 94
[2024-10-24 23:36] VITALS: BMI 25.6
--- NOTE | 2024-10-24 23:41 | PD.EDHA ---
ED Headache RME/HPI General Chief Complaint: Headache Stated Complaint: HEADACHE, LEFT EAR Time Seen by Provider: 10/24/24 23:36 Arrival date/time: 10/24/24 23:27 RME / HPI RME / HPI Narrative: Dr. Mota?s Main ED Evaluation: 64yo female [place] from home presents to the ED for a chief complaint of a headache. Patient states she's had left ear pain for the last 8 months, describing it as pressure in nature, reporting it worsened today and is now causing a headache. She denies any fever, chills, dizziness, lightheadedness or any other associated symptoms. PMHx: HTN, COPD on 2L home oxygen, IDDM, history of pulmonary embolism, history of Takotsubo cardiomyopathy, paroxysmal atrial fibrillation Related Data Home Medications ?Medication ?Instructions ?Recorded ?Confirmed methadone 10 mg/5 mL oral solution 100 mg PO QDAY 02/07/24 08/04/24 nitroglycerin 0.4 mg sublingual 0.4 mg buccal Q5MIN PRN Chest Pain 02/07/24 08/04/24 tablet Previous Rx's ?Medication ?Instructions ?Recorded tramadol 50 mg tablet 50 mg PO Q8H PRN pain #20 tabs 04/06/24 albuterol sulfate 90 mcg/actuation 1 puff inhalation QID PRN 08/06/24 aerosol inhaler shortness of breath or wheezing #8.5 grams aspirin 81 mg tablet,delayed 81 mg PO QDAY #30 tabs 08/06/24 release buspirone 5 mg tablet 5 mg PO QDAY #30 tabs 08/06/24 fluticasone fur. 200 mcg-umeclid 1 inh inhalation QDAY #60 ea 08/06/24 62.5 mcg-vilant 25 mcg inhalat.powder (Trelegy Ellipta) furosemide 20 mg tablet (Lasix) 20 mg PO QAM #30 tabs 08/06/24 hydralazine 100 mg tablet 100 mg PO TID #90 tabs 08/06/24 lactulose 10 gram/15 mL oral 10 g (15 mL) PO QDAY PRN 08/06/24 solution constipation #3,785 mL lidocaine 5 % topical patch 1 patch topical QDAY #30 ea 08/06/24 spironolactone 50 mg tablet 50 mg PO QDAY #30 tabs 08/06/24 insulin glargine 100 unit/mL (3 26 unit (0.26 mL) subcut QPM #15 mL 08/07/24 mL) subcutaneous pen (Basaglar KwikPen U-100 Insulin) apixaban 5 mg tablet 5 mg PO BID 30 days #60 tabs 09/28/24 ciprofloxacin HCl 500 mg tablet 500 mg PO BID #14 tabs 10/23/24 (Cipro) Allergies Allergy/AdvReac Type Severity Reaction Status Date / Time codeine Allergy Severe RASH Verified 10/19/24 16:03 diphenhydramine HCl Allergy Severe Hives Verified 10/19/24 16:03 egg Allergy Severe Rash Verified 10/19/24 16:03 Penicillins Allergy Severe SWELLING, Verified 10/19/24 16:03 RESP DISTRESS pentazocine (From [employer]) Allergy Severe Hives Verified 10/19/24 16:03 Review of Systems Review of Systems Systems Reviewed: All systems reviewed, normal except as documented Narrative Review of Systems: Gen: No fever, no chills, no weight loss EYES: No discharge, no visual changes, no pain HEENT: + ear pain, no congestion, no sore throat PULM: No shortness of breath, no cough, no congestion CV: No chest pain, no dyspnea on exertion, no palpitations GI: No nausea, no vomiting, no diarrhea, no pain, no constipation : No frequency, no urgency, no dysuria Musc/skel: No joint pain, no back pain Skin: No rash. Warm and dry. Psyc: No hallucinations, no depression Heme/Lymph: No easy bleeding or bruising tendencies Neuro: No weakness, + headache ED Exam Narrative Physical exam: GENERAL APPEARANCE: alert and oriented x 4, well-developed, well-nourished, no acute distress VITALS: All vitals were reviewed and the pulse ox is 94% on 2L/NC, which is normal according to my interpretation. HEENT: Normocephalic, atraumatic; pupils equal, round, reactive to light; EOMI; left TM is bulging without any erythema or loss of landmarks, right TM is normal; mucous membranes pink, moist; oropharynx clear NECK: Supple LUNGS: CTABL; no wheezes, no rales, no rhonchi HEART: Regular rate, regular rhythm; normal S1, S2; no murmurs ABDOMEN: non distended; normal BS; soft, no tenderness, no guarding, no rebound; no masses, no organomegaly, no hernia BACK: no CVA tenderness EXTREMITIES: atraumatic; no edema NEUROLOGIC: awake; alert and oriented x4; cranial nerves II-XII grossly intact; no focal sensory or motor deficits PSYCHIATRIC: appropriate mood and affect SKIN: warm, dry, normal color; no rashes Course Quality Measures none Orders Category Date Time Status Acetaminophen Tab [Tylenol ES Tab] Med 10/24/24 23:42 Discontinued 1,000 mg PO X1 ONE Ketorolac Inj [Toradol Inj] Med 10/24/24 23:42 Discontinued 30 mg IVP X1 ONE Oxymetazoline Jc [place] 0.05% [Afrin Nasal Winston] Med 10/24/24 23:41 Discontinued See Dose Instructions NASAL X1 ONE Vital Signs Vital signs: Vital Signs Temperature 98.7 F 10/24/24 23:30 Pulse Rate 102 H 10/24/24 23:30 Respiratory Rate 20 10/24/24 23:30 Blood Pressure 169/77 H 10/24/24 23:30 Pulse Oximetry (%) 94 L 10/24/24 23:30 Oxygen Delivery Method Nasal Cannula 10/24/24 23:30 Oxygen Flow Rate 2 10/24/24 23:30 Headache MDM Narrative MDM Narrative:: Scribe Attestation: 10/24/24 Modesta No am scribing for and in the presence of Dr. Mota. Patient data External records reviewed:: [facility] previous records (Per chart review, patient was seen here yesterday for abdominal pain.) Clinical information provided by:: patient Social determinants that could affect healthcare access:: none Patient has the following chronic illnesses:: HTN, COPD on 2L home oxygen, insulin-dependent type 2 diabetes, history of pulmonary embolism, history of Takotsubo cardiomyopathy, paroxysmal atrial fibrillation How is presenting disease/condition affected by chronic disease/condition?: uneffected by Evaluation data The following diagnostics were reviewed and interpreted by me:: other (specify) (none) Lab and/or radiology exams considered but not ordered:: none Interpretation Summary: none Medications / Prescriptions Medications or Prescriptions considered but not ordered:: none Medication administrations:: Medication Administration History Discontinued Medications Acetaminophen (Acetaminophen 500 Mg Tablet) 1,000 mg PO X1 ONE Stop: 10/24/24 23:43 Last Admin: 10/24/24 23:57 Dose: 1,000 mg Documented By: SF Ketorolac Tromethamine (Ketorolac Inj 30 Mg/Ml Vial) 30 mg IVP X1 ONE Stop: 10/24/24 23:43 Last Admin: 10/24/24 23:57 Dose: 30 mg Documented By: SF Oxymetazoline HCl (Oxymetazoline Jc [place]stone 0.05% 15 Ml Btl) 0 spray NASAL X1 ONE Stop: 10/24/24 23:42 Last Admin: 10/24/24 23:57 Dose: 2 spray Documented By: SF see above Consultations Consultation(s) initiated? (list below): No Diagnosis Differential diagnosis headache: other (serous otitis media, otitis media, otitis externa, malignant otitis externa) Most likely diagnosis given after review of the tests above:: see below Admission Indicated Admission indicated?: not indicated Admission Request Was there a request for admission?: No Disposition Plan Disposition Plan: Discharge Discharge Attestation Discharge Attestation: The patient and all family members were given an opportunity to ask questions and understood the discharge instructions. Discharge instructions specifically effects, indications for sooner follow up or return to the emergency department, and the expected course of current diagnosis. Patient condition: Stable Discharge Plan Plan Patient Disposition: HOME (Self Care) Disposition Comment: Stable for discharge Patient condition on transfer: Stable Prescriptions/Referrals Prescriptions/Med Rec: No Action tramadol 50 mg tablet 50 mg PO Q8H PRN (Reason: pain) Qty: 20 0RF hydralazine 100 mg tablet 100 mg PO TID Qty: 90 0RF albuterol sulfate 90 mcg/actuation HFA aerosol inhaler 1 puff inhalation QID PRN (Reason: shortness of breath or wheezing) Qty: 8.5 0RF aspirin 81 mg tablet,delayed release (DR/EC) 81 mg PO QDAY Qty: 30 0RF buspirone 5 mg tablet 5 mg PO QDAY Qty: 30 0RF furosemide [Lasix] 20 mg tablet 20 mg PO QAM Qty: 30 0RF lactulose 10 gram/15 mL solution 10 g PO QDAY PRN (Reason: constipation) Qty: 3785 0RF lidocaine 5 % adhesive patch,medicated 1 patch topical QDAY Qty: 30 0RF Rx Instructions: leave on most painful area for up to 12 hrs spironolactone 50 mg tablet 50 mg PO QDAY Qty: 30 0RF Trelegy Ellipta 200-62.5-25 mcg blister with device 1 inh inhalation QDAY Qty: 60 0RF insulin glargine [Basaglar KwikPen U-100 Insulin] 100 unit/mL (3 mL) insulin pen 26 unit subcut QPM Qty: 15 0RF ciprofloxacin HCl [Cipro] 500 mg tablet 500 mg PO BID Qty: 14 0RF methadone 10 mg/5 mL Solution 100 mg PO QDAY nitroglycerin 0.4 mg Tablet, Sublingual 0.4 mg BUCCAL Q5MIN PRN (Reason: Chest Pain) apixaban 5 mg tablet 5 mg PO BID 30 Days Qty: 60 0RF Referrals: [facility] [Outside] - In 1 week Problem List Clinical Impression: Acute serous otitis media Patient/Caregiver Discharge Instructions Discharge Activity: activity as tolerated Education Materials: Common Middle Ear Problems, Anatomy of the Ear, ED Earache Without Infection (Adult) Additional Instructions: Please return to the emergency department for any worsening or any further medical problems Otherwise you should follow-up with your primary care doctor or in the [facility] within the next several days You have something called serous otitis media in your left ear. This is a collection of fluid in your inner ear. It is not infected. But the buildup of fluid is very painful. Print Language: Mongolian Stand Alone Forms: Kaylynn Award Info., Patient Portal Info Letter
[2024-10-24] MEDS: ACETAMINOPHEN 500 MG TABLET 1000 MG PO (23:57)
[2024-10-24] MEDS: KETOROLAC INJ 30 MG/ML VIAL IVP (23:57)
[2024-10-24] MEDS: OXYMETAZOLINE NAS SPRY 0.05% 15 ML BTL NASAL (23:57)
[2024-10-25 00:24] VITALS: BP 145/73; PULSE 85; RESP 18; O2SAT 97
[2024-10-25 03:08] VITALS: BP 175/80; PULSE 102; RESP 20; TEMP 36.7; O2SAT 94
== END 2024-10-25 03:21 | disposition home or self-care (01) ==
LOC: SERX 10-25 03:23
PROVIDERS: Emergency Provider Emergency Medicine; PCP Family Medicine
DX: H65.02 Acute serous otitis media, left ear (principal)
CPT/HCPCS: 96374; 99284; J1885; A9270

== ENCOUNTER 2024-10-27 01:05 | Emergency (ER) | payer MEDICAID, SELFPAY ==
[2024-10-27] VITALS (12 sets, daily range): BP systolic 125–193; BP diastolic 68–95; PULSE 50–95; RESP 16–20; TEMP 36.6–37; O2SAT 95–98; BMI 25.6
--- NOTE | 2024-10-27 | XR_ITS ---
Examination: MRI lumbar spine without contrast Date and time of exam: October 27, 2024 1015 hrs. Indications: Low back pain radiating down the right leg weakness in the right leg beginning one week ago Technique: Multiple MRI axial and sagittal sections lumbar spine. Sagittal T2-weighted images, TR 3500, TE 118 T1 weighted transverse sections, TR 688 T8.5, T2-weighted sagittal sections T1 weighted sagittal sections TR 621, TE 30 T2 axial sections, TR 4, 190, TE 84. Findings: Grade 1 anterolisthesis L3 on L4 No lumbar fracture Advanced degenerative disc disease L4-L5 Adequate marrow signal lumbar vertebral bodies Diffuse lumbar disc desiccation No spondylolisthesis L5-S1 2 mm central lumbar disc bulge L4-L5 2 mm central 6 mm bilateral foraminal disc bulges with mild bilateral L4 ganglionic compression L3-L4 4 mm central lumbar disc bulge L2-L3 no disc protrusion L1-L2 no disc protrusion Impression: Advanced degenerative disc disease L4-L5 L5-S1 2 mm central lumbar disc bulge L4-L5 6 mm bilateral foraminal disc bulges producing mild bilateral L4 ganglionic compression L3-L4 4 mm central lumbar disc bulge
--- NOTE | 2024-10-27 | XR_ITS ---
Examination: MRI cervical spine without intravenous contrast Date and time of exam: October 27, 2024 1002 hrs. Indications: Neck pain and weakness in the extremities this week Technique: Multiple axial and sagittal sections of the cervical spine to been obtained. T2 weighted sagittal sections, TR 3, 270, TE 117 T1-weighted sagittal sections, TR 500, TE 11 T1-weighted axial sections, TR 607, TE 12, axial sections TR 18, TE 27 and T2 weighted transverse sections, TR 3920, TE 122. Findings: Straightening normal cervical lordosis Advanced degenerative disc disease C3-C4, C4-C5, C5-C6, C6-C7 Diffuse cervical disc desiccation No cervical fracture Intact odontoid No localized enlargement cervical cord C2-C3 no disc protrusion C3-C4 uncinate process hypertrophy with advanced bilateral neural foraminal stenosis C4-C5 4 mm central subarticular osteophyte disc complex, indenting the ventral margin cervical cord, advanced bilateral neural foraminal stenosis, severe overall spinal stenosis C5-C6 4 mm central subarticular osteophyte disc complex, indenting the ventral margin cervical cord, advanced bilateral neural foraminal stenosis C6-C7 3 mm central subarticular osteophyte disc complex, indenting the ventral margin cervical cord, advanced bilateral neural foraminal stenosis C7-T1 moderate bilateral neural foraminal stenosis Impression: Diffuse advanced cervical degenerative disc disease Severe overall spinal stenosis C4-C5, C5-C6, C6-C7 as above
--- NOTE | 2024-10-27 | XR_ITS ---
Examinations: MRI Brain without intravenous contrast. MRA brain without intravenous contrast. MRA carotids without intravenous contrast 3-D vascular reconstructions Date and time of exam: October 27, 2024 0931 hrs. Indications: Onset difficulty walking headaches right leg weakness beginning one week ago Technique: Multiple axial and sagittal images of the brain have been obtained MRA brain carotid images without contrast obtained, including 3-D postprocessing, vascular maximum intensity projection images Findings: [place] is not enlarged. The optic chiasm and infundibular stalk are not remarkable. Prepontine and interpeduncular cisterns are not enlarged. No localized enlargement of the medulla or kelli. Fourth ventricle and cerebellar tonsils normal in position. Subacute hemorrhage is not seen. Fourth ventricle is midline. Mass in the cerebellopontine angle region is not evident. 7th and 8th nerve complexes exhibits symmetry. Globes are symmetrical with no retro-orbital mass. Increased white matter signal prominent including old infarct left middle cerebral artery distribution Diffusion-weighted images demonstrate no focus of restricted diffusion Mass-effect upon the ventricular system is not identified. 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
--- NOTE | 2024-10-27 02:35 | PC.NURSE ---
First contact with pt in Room 6, pt changed into gown, connected to bedside panel monitor, call light within reach.
--- NOTE | 2024-10-27 03:20 | PD.EDNECK ---
ED Neck Injury Pain RME/HPI General Chief Complaint: Neck Pain/Injury Stated Complaint: NECK PAIN Time Seen by Provider: 10/27/24 01:40 Arrival date/time: 10/27/24 01:05 RME / HPI RME / HPI Narrative: Dr. Mota?s Main ED Evaluation: 64yo female with a history of HTN, COPD on 2L home oxygen, IDDM, history of pulmonary embolism, history of Takotsubo cardiomyopathy, paroxysmal atrial fibrillation BIBA from home presents to the ED for multiple complaints. Patient states she's continued to have bilateral ear pain despite interventions being given 2 days ago, and has since developed posterior neck pain. She reports associated N/V, a posterior headache, and a cough. She denies any body aches, chills, sweating, abdominal pain or any other associated symptoms. Patient notes she's had her symptoms since she fell one week ago. Related Data Home Medications ?Medication ?Instructions ?Recorded ?Confirmed methadone 10 mg/5 mL oral solution 100 mg PO QDAY 02/07/24 08/04/24 nitroglycerin 0.4 mg sublingual 0.4 mg buccal Q5MIN PRN Chest Pain 02/07/24 08/04/24 tablet Previous Rx's ?Medication ?Instructions ?Recorded tramadol 50 mg tablet 50 mg PO Q8H PRN pain #20 tabs 04/06/24 albuterol sulfate 90 mcg/actuation 1 puff inhalation QID PRN 08/06/24 aerosol inhaler shortness of breath or wheezing #8.5 grams aspirin 81 mg tablet,delayed 81 mg PO QDAY #30 tabs 08/06/24 release buspirone 5 mg tablet 5 mg PO QDAY #30 tabs 08/06/24 fluticasone fur. 200 mcg-umeclid 1 inh inhalation QDAY #60 ea 08/06/24 62.5 mcg-vilant 25 mcg inhalat.powder (Trelegy Ellipta) furosemide 20 mg tablet (Lasix) 20 mg PO QAM #30 tabs 08/06/24 hydralazine 100 mg tablet 100 mg PO TID #90 tabs 08/06/24 lactulose 10 gram/15 mL oral 10 g (15 mL) PO QDAY PRN 08/06/24 solution constipation #3,785 mL lidocaine 5 % topical patch 1 patch topical QDAY #30 ea 08/06/24 spironolactone 50 mg tablet 50 mg PO QDAY #30 tabs 08/06/24 insulin glargine 100 unit/mL (3 26 unit (0.26 mL) subcut QPM #15 mL 08/07/24 mL) subcutaneous pen (Basaglar KwikPen U-100 Insulin) apixaban 5 mg tablet 5 mg PO BID 30 days #60 tabs 09/28/24 ciprofloxacin HCl 500 mg tablet 500 mg PO BID #14 tabs 10/23/24 (Cipro) Allergies Allergy/AdvReac Type Severity Reaction Status Date / Time codeine Allergy Severe RASH Verified 10/19/24 16:03 diphenhydramine HCl Allergy Severe Hives Verified 10/19/24 16:03 egg Allergy Severe Rash Verified 10/19/24 16:03 Penicillins Allergy Severe SWELLING, Verified 10/19/24 16:03 RESP DISTRESS pentazocine (From [place]) Allergy Severe Hives Verified 10/19/24 16:03 Review of Systems Review of Systems Systems Reviewed: All systems reviewed, normal except as documented Narrative Review of Systems: Gen: No fever, no chills, no weight loss EYES: No discharge, no visual changes, no pain HEENT: + ear pain, no congestion, no sore throat, + neck pain PULM: No shortness of breath, + cough, no congestion CV: No chest pain, no dyspnea on exertion, no palpitations GI: + nausea, + vomiting, no diarrhea, no pain, no constipation : No frequency, no urgency, no dysuria Musc/skel: No joint pain, no back pain Skin: No rash. Warm and dry. Psyc: No hallucinations, no depression Heme/Lymph: No easy bleeding or bruising tendencies Neuro: no weakness, + headache Past Medical History Past Medical History NEUROLOGIC: Positive Neurological Disorders and Cerebrovascular Accident; Negative Transient Ischemic Attacks (TIA), Alzheimer's Disease, Parkinson's Disease, Brain Tumor, Meningitis, Seizures, Multiple Sclerosis, Cerebral Palsy, Amyotrophic Lateral Sclerosis (ALS/Regina Gehrig's), Spina Bifida, Paralysis, Peripheral Neuropathy, Farrar's Palsy, Subdural Hematoma, Migraine, Head Trauma, Spinal Cord Injury or Traumatic Brain Injury CARDIAC: Positive Cardiac Disorders, Myocardial Infarction, Cardiac Arrhythmia, Atrial Fibrillation, Angina, Hypercholesterolemia, Congestive Heart Failure, Edema and Hypertension; Negative Varicose Veins RESPIRATORY: Positive Chronic Obstructive Pulmonary Disease (COPD), Asthma, Bronchitis, Emphysema and Pneumonia; Negative Pulmonary Fibrosis, Tuberculosis, Pulmonary Embolism, Pulmonary Edema or Sleep Apnea GASTROINTESTINAL: Negative Gastrointestinal Disorders, Hepatitis, Cirrhosis, Pancreatitis, Celiac Disease, Gall Bladder Disease, Gastrointestinal Bleed, Esophageal Varices, Denise's Esophagus, Colitis, Ulcerative Colitis, Diverticulitis, Diverticulosis, Ulcer, Irritable Bowel, Crohn's Disease, Obstructive Bowel, Hiatal Hernia, Hemorrhoids, Gastroesophageal Reflux Disease or Obesity GENITOURINARY: Negative Genitourinary Disorders, Renal Disease, Kidney Stones, Polycystic Kidney Disease, Neurogenic Bladder, Inguinal Hernia, Dialysis or Benign Prostatic Hyperplasia REPRODUCTIVE: Negative Pelvic Inflammatory Disease MUSCULOSKELETAL: Positive Musculoskeletal Disorders and Arthritis; Negative Muscular Dystrophy, Myasthenia Gravis, Marfan's Syndrome, Rheumatoid Arthritis, Osteoporosis, Degenerative Disk Disease, Gout, Scoliosis, Carpal Tunnel Syndrome, Fibromyalgia, Fractures, Degenerative Joint Disease, Osteomyelitis or Poliovirus ENT: Positive Cataracts and Blind; Negative Glaucoma, Retinal Detachment, Macular Degeneration, Ear Infection, Deafness, Head Trauma or Eye Prosthesis ENDOCRINE: Positive Endocrine Disorders, Diabetes Mellitus Type 1 and Diabetes Mellitus Type 2; Negative Hypoglycemia, Ada's Syndrome, [place]'s Disease, Hyperthyroidism, Hypothyroidism, Parathyroid Disease, Pituitary Disease, Systemic Lupus Erythematosus, Syndrome of Inappropriate Antidiuretic Hormone (SIADH), Adrenal Disease or Graves' Disease HEMATOLOGIC: Positive Anemia; Negative Blood Disorders, Leukemia, Hemophilia, Thalassemia, Sickle Cell Disease or Clotting Problems PSYCHO/SOCIAL: Positive Recreational Drug Use, Depression and Anxiety; Negative Psychiatric Problems, Schizophrenia, Behavior Problems, Self-Mutilation, Attention Deficit Disorder, Attention Deficit Hyperactivity Disorder, Depression, Post Traumatic Stress Disorder or Eating Disorder OTHER HISTORY: Positive Hospitalization and Shingles; Negative Autoimmune Disease, Down Syndrome, Autism, Developmental Delay, Falls, Blood Transfusions, Blood Transfusion Reaction, Anesthesia Reactions, Organ Transplant, Chemotherapy, Radiation Therapy, MRSA, Human Immunodeficiency Virus (HIV), Chicken Pox, Measles, Mumps, Rubella (Bel[place]ian Measles), Pertussis, Clostridium Difficile or Cancer Family History FAMILY HISTORY: Positive Family Cardiac Disorders; Negative Family Psychiatric Problems, Family Respiratory Disorders, Family Gastrointestinal Problems, Family Cancer, Family Surgery or Family Anesthesia Reaction Surgical History SURGICAL: Positive Eye Surgery, Tonsillectomy and Abdominal Surgery; Negative Cardiac Surgery, Open Heart Surgery, Coronary Artery Bypass Graft, Valve Replacement, Vascular Surgery, Coronary Stent, Cardiac Catheterization, Pacemaker, Angiogram, Auto Implanted Cardiovert Defib, Carotid Endarterectomy, Endocrine Surgery, Thyroidectomy, Ear Surgery, Tympanostomy Tube, Nose Surgery, Oral Surgery, Adenoidectomy, Cochlear Implant, Corneal Transplant, Throat Surgery, Tracheostomy, Gastric Bypass Surgery, Gastrostomy, Bowel Surgery, Nephrectomy, Joint Replacement, Amputation, Open Reduction Internal Fixation, Arthroscopy, Neurologic Surgery, Brain Shunt, Mastectomy, Lumpectomy, Hysterectomy, Tubal Ligation, Section or Organ Transplant Social History SMOKING STATUS: Current some day smoker SECOND HAND EXPOSURE: No SUBSTANCE USE: former substance user, heroin and methamphetamine (Former drug use, states she quit 20 years ago; tested positive for methamphetamine 03/31/2023.) ED Exam Narrative Physical exam: GENERAL APPEARANCE: alert and oriented x 4, well-developed, well-nourished, no acute distress VITALS: All vitals were reviewed and the pulse ox is 98% on 2L, which is normal according to my interpretation. HEENT: Normocephalic, atraumatic; pupils equal, round, reactive to light; EOMI; mucous membranes pink, moist; oropharynx clear NECK: Supple; cervical paraspinal tenderness, no midline cervical tenderness LUNGS: CTABL; no wheezes, no rales, no rhonchi HEART: Regular rate, regular rhythm; normal S1, S2; no murmurs ABDOMEN: non distended; normal BS; soft, no tenderness, no guarding, no rebound; no masses, no organomegaly, no hernia BACK: no CVA tenderness EXTREMITIES: atraumatic; no edema NEUROLOGIC: awake; alert and oriented x4; cranial nerves II-XII grossly intact; no focal sensory or motor deficits PSYCHIATRIC: appropriate mood and affect SKIN: warm, dry, normal color; no rashes Course Quality Measures none Orders Category Date Time Status Bedside COVID-19 Antigen Test NOW Care 10/27/24 03:30 Active Bedside Influenza A&B Antigen Test NOW Care 10/27/24 03:30 Completed EKG (ED ONLY) *Do not use* NOW Care 10/27/24 03:[address] cervical spine wo con Stat Exams 10/27/24 04:[address] head/brain wo con Stat Exams 10/27/24 05:33 Ordered EKG (ED Only) Stat Exams 10/27/24 03:32 Ordered XR cervical spine 2-3V Stat Exams 10/27/24 03:33 Taken XR chest 1V portable Stat Exams 10/27/24 03:32 Taken CBC Stat Lab 10/27/24 03:32 Ordered CMP [Comprehensive Metabolic Panel] Stat Lab 10/27/24 03:32 Ordered Free T4 (Free Thyroxine) Stat Lab 10/27/24 03:32 Ordered Lyme Ab w Reflex IgG,IgM Blot* Stat Lab 10/27/24 Ordered TSH [Thyroid Stimulating Hormone] Stat Lab 10/27/24 03:32 Ordered Acetaminophen Ivpb [Ofirmev Inj] Med 10/27/24 03:31 Active 1,000 mg in 100 ml IV Q6HR Ketorolac Inj [Toradol Inj] Med 10/27/24 03:31 Discontinued 30 mg IVP X1 ONE LORazepam [Ativan Inj] Med 10/27/24 03:30 Discontinued 0.5 mg IVP X1 ONE Ondansetron Inj [Zofran Inj] Med 10/27/24 03:30 Discontinued 4 mg IV X1 ONE Vital Signs Vital signs: Vital Signs Temperature 98.1 F 10/27/24 01:13 Pulse Rate 95 10/27/24 01:13 Respiratory Rate 18 10/27/24 01:13 Blood Pressure 193/95 H 10/27/24 01:13 Pulse Oximetry (%) 95 10/27/24 01:13 Oxygen Delivery Method Room Air 10/27/24 01:13 Neck Pain MDM Narrative MDM Narrative:: Scribe Attestation: 10/27/24 - Modesta Fuller am scribing for and in the presence of Dr. Mota. Patient data External records reviewed:: [facility] previous records (Per chart review, patient was seen here on 10/24/24 for serous otitis media.) Clinical information provided by:: patient Social determinants that could affect healthcare access:: none Patient has the following chronic illnesses:: HTN, COPD on 2L home oxygen, IDDM, history of pulmonary embolism, history of Takotsubo cardiomyopathy, paroxysmal atrial fibrillation How is presenting disease/condition affected by chronic disease/condition?: uneffected by Evaluation data The following diagnostics were reviewed and interpreted by me:: lab results, radiology exam(s) and EKG tracing(s) Lab and/or radiology exams considered but not ordered:: none Interpretation Summary: CXR shows normal cardiac silhouette, normal sharp diaphragmatic edge, no infiltrates, normal costophrenic angles, according to my interpretation. Cervical spine x-ray has inadequate films (only includes C1-C6), it does not show C7 or the top of T1, CT cervical spine ordered. Labs, CT, and EKG ordered. Pending at sign out. Medications / Prescriptions Medications or Prescriptions considered but not ordered:: none Medication administrations:: Medication Administration History Acetaminophen (Ofirmev Inj) 1,000 mg in 100 mls @ 250 mls/hr IV Q6HR KIP Stop: 10/28/24 00:23 Discontinued Medications Ketorolac Tromethamine (Ketorolac Inj 30 Mg/Ml Vial) 30 mg IVP X1 ONE Stop: 10/27/24 03:32 Last Admin: 10/27/24 04:59 Dose: 30 mg Documented By: AIVLA Lorazepam (Lorazepam 2 Mg/Ml Vial) 0.5 mg IVP X1 ONE Stop: 10/27/24 03:31 Last Admin: 10/27/24 05:00 Dose: 0.5 mg Documented By: AVILA Ondansetron HCl (Ondansetron Inj 2 Mg/Ml Inj 2 Ml) 4 mg IV X1 ONE; Protocol Stop: 10/27/24 03:31 Last Admin: 10/27/24 05:00 Dose: 4 mg Documented By: AVILA see above Consultations Consultation(s) initiated? (list below): No Diagnosis Neck Differential Diagnosis: other (musculoskeletal pain, cervical strain, cervical radiculopathy, viral meningitis) Most likely diagnosis given after review of the tests above:: pending at sign out Admission Indicated Admission indicated?: not indicated Admission Request Was there a request for admission?: No Disposition Plan Disposition Plan: other (specify) (Signed out to Dr. Murrell at [address], labs and EKG.) Discharge Plan Prescriptions/Referrals Prescriptions/Med Rec: No Action tramadol 50 mg tablet 50 mg PO Q8H PRN (Reason: pain) Qty: 20 0RF hydralazine 100 mg tablet 100 mg PO TID Qty: 90 0RF albuterol sulfate 90 mcg/actuation HFA aerosol inhaler 1 puff inhalation QID PRN (Reason: shortness of breath or wheezing) Qty: 8.5 0RF aspirin 81 mg tablet,delayed release (DR/EC) 81 mg PO QDAY Qty: 30 0RF buspirone 5 mg tablet 5 mg PO QDAY Qty: 30 0RF furosemide [Lasix] 20 mg tablet 20 mg PO QAM Qty: 30 0RF lactulose 10 gram/15 mL solution 10 g PO QDAY PRN (Reason: constipation) Qty: 3785 0RF lidocaine 5 % adhesive patch,medicated 1 patch topical QDAY Qty: 30 0RF Rx Instructions: leave on most painful area for up to 12 hrs spironolactone 50 mg tablet 50 mg PO QDAY Qty: 30 0RF Trelegy Ellipta 200-62.5-25 mcg blister with device 1 inh inhalation QDAY Qty: 60 0RF insulin glargine [Basaglar KwikPen U-100 Insulin] 100 unit/mL (3 mL) insulin pen 26 unit subcut QPM Qty: 15 0RF ciprofloxacin HCl [Cipro] 500 mg tablet 500 mg PO BID Qty: 14 0RF methadone 10 mg/5 mL Solution 100 mg PO QDAY nitroglycerin 0.4 mg Tablet, Sublingual 0.4 mg BUCCAL Q5MIN PRN (Reason: Chest Pain) apixaban 5 mg tablet 5 mg PO BID 30 Days Qty: 60 0RF Referrals: Apolinar Tai MD [Primary Care Provider] - In 1 week Problem List Clinical Impression: Headache, Vomiting, Neck pain Patient/Caregiver Discharge Instructions Print Language: Urdu
--- NOTE | 2024-10-27 03:32 | XR_ITS ---
Examination: AP chest single view TECHNIQUE: AP portable upright chest single view Exam date and time: October 27, 2024 at 0337 hours Comparison October 19, 2024 INDICATIONS: Coughing today. FINDINGS: Normal heart size No pneumonia or pulmonary edema Mild vascular congestion Prominent osteopenia IMPRESSION: Mild vascular congestion
--- NOTE | 2024-10-27 03:33 | XR_ITS ---
Examination: Cervical spine 3 views TECHNIQUE: AP lateral coned AP odontoid cervical spine 3 views Examination time: 2024 0338 hours INDICATIONS: Neck pain years. FINDINGS: Cervicothoracic dextroscoliosis 12 degrees Heavy carotid vascular calcification Advanced degenerative disc disease C3-C4, C4-C5, C5-C6, C6-C7 Moderate cervical spondylosis No cervical fracture Intact odontoid IMPRESSION: Advanced degenerative disc disease C3-C4, C4-C5, C5-C6 and C6-C7
--- NOTE | 2024-10-27 04:43 | XR_ITS ---
Examination: CT cervical spine without contrast 2-D sagittal reconstructions 2-D coronal reconstructions 3-D reconstructions. Exam date and time:Airway 2024 at 0456 hours INDICATION: Patient fell October 19, 2024 with injury to the neck, neck pain CTDI:vol (mGy) 14.1 DLP: (mGycm) 311 Technique: Multiple 2 mm axial sections of the cervical spine have been obtained. The coronal and sagittal reconstructions have been obtained. 3-D reconstructions have been obtained. Low dose protocols were performed. One or more of the following dose reduction techniques were used; automated exposure control, adjustment of the mA and/or KV according to patient size, use of iterative reconstruction technique. Findings: Axial sections demonstrate intact base of the skull. Advanced degenerative disc disease C3-C7 C1 exhibit satisfactory relationship to the odontoid. No acute cervical vertebral body fracture seen. Alignment posterior spinous processes satisfactory. Impression: No acute cervical fracture. Heavy soft tissue carotid vascular calcification, consider correlation with carotid Doppler sonography follow-up
[2024-10-27] MEDS: KETOROLAC INJ 30 MG/ML VIAL IVP (04:59)
[2024-10-27] MEDS: LORazepam 2 MG/ML VIAL 0.5 MG IVP (05:00)
[2024-10-27] MEDS: ONDANSETRON INJ 2 MG/ML INJ 2 ML 4 MG IV ×2 (05:00→13:41)
--- NOTE | 2024-10-27 05:02 | PRELIM_ITS ---
Radiographs of the cervical spine (3 views). October 27, 2024 0338 hours Clinical history: neck pain Comparison: None Findings: Study is limited due to C7 and T1 vertebra being obscured by overlying soft tissues. There is straightening of the cervical spine. There are multilevel degenerative disc changes and spondylosis of the cervical spine. There is no fracture, to medics of fixation or other acute osseous abnormality of C1-C6. There is no prevertebral soft tissue swelling. Left carotid bulb vascular calc ification noted. Impression: 1. Degenerative change. No acute osseous abnormality of C1-C6. C7 and T1 are not adequately visualized. If clinically necessary further evaluation may be performed with CT of the cervical spine. 2. Straightening of the cervical spine may indicate muscle spasm. Report Electronically Signed By: Ronnie Farr 10/27/2024 5:13:23 AM [EST]
--- NOTE | 2024-10-27 05:33 | XR_ITS ---
Examination: CT brain head without contrast. 2-D sagittal coronal reconstructions Date and time of exam:October 27, 2024 at 0542 hours INDICATIONS: Patient fell October 19, 2024 with injury to the head, head pain CTDI: vol (mGy):50.7 DLP: (mGycm):982 Technique: Multiple CT axial sections of the brain have been obtained, 5 mm slice thickness. Contrast has not been administered. 2-D sagittal, coronal reconstructions have been obtained Low dose protocols were performed. One or more of the following dose reduction techniques were used; automated exposure control, adjustment of the mA and/or KV according to patient size, use of iterative reconstruction technique. Findings: No significant ventricular enlargement. Intra-axial or extra-axial hemorrhage density is not seen. No mass effect or midline shift Basal cisterns are not remarkable. Fourth ventricle is midline. Cranial vault intact. Impression: Negative for acute hemorrhage, mass effect or midline shift Advise clinical correlation and follow up accordingly
--- NOTE | 2024-10-27 05:54 | PRELIM_ITS ---
CT scan cervical spine without contrast (entire C-spine, axial sections with sagittal and coronal reformats). Clinical history: neck pain following GLF several days ago Findings: There is no acute cervical fracture or traumatic subluxation. The paravertebral soft tissues are unremarkable. Straightening of the cervical spine. Diffuse disc space narrowing and spondylosis. Impression: No evidence of acute cervical fracture or traumatic subluxation. Report Electronically Signed By: Paulo Estes 10/27/2024 5:53:34 AM [EST]
[2024-10-27] MEDS: ACETAMINOPHEN IVPB 1,000 MG/100 ML VIAL 250 MG IV (05:58)
--- NOTE | 2024-10-27 06:01 | PRELIM_ITS ---
CT scan of the head without intravenous contrast (axial sections with sagittal and coronal reformats). October 27, 2024 0542 hours Clinical History: GARAY for one week following GLF Comparison: October 19, 2024 Findings: There is no evidence of intracranial hemorrhage, mass effect or midline shift. There are periventricular white matter hypodensities, suggestive of chronic small vessel ischemia. The CSF spaces are prominent, consistent with volume loss. The calvarium is intact. Chronic bilateral basal ganglia lacunar infarctions. Prominent atherosclerotic calcification is noted. The mastoid air cells and visualized paranasal sinuses are clear. Impression: No evidence of intracranial hemorrhage, mass effect or calvarial fracture. Periventricular chronic small vessel ischemia and volume loss. Report Electronically Signed By: Paulo Estes 10/27/2024 6:01:29 AM [EST]
--- NOTE | 2024-10-27 06:09 | PD.EDADDENDU ---
Emergency Room Addendum Addendum Narrative: 0600 care assumed by previous shift provider. Past medical, surgical, social and family history reviewed. Vitals and home medications reviewed. Results and treatment plan discussed. I will assume the care of the patient at this time and will follow the patient, pending final disposition. On my encounter she is sleeping comfortably, states she no longer has a headache but she has some neck pain. She denies neck stiffness. She denies fevers chills or sweats. She notes to me since her fall about a week ago she has been reluctant to walk around due to fear of dizziness. When she is laying in bed she does not feel dizzy. She does not recall nausea or vomiting with the dizziness. Her baseline ambulation is with a walker around the house, she lives alone, she has neighbors and friends that help her every day. She denies any new falls. She does note her right leg has been weaker than normal, she states she has had a stroke before in the past which has affected the right leg. She denies back pain. She denies photophobia. Examination, she is sleeping, resting comfortably. Neck with full range of motion, she has no meningismus. Coordination exam she is able to swing her legs around briskly, well, and sit on the edge of the bed without dizziness. She is able to stand with a moderate wide-based gait, however with putting her feet together she stumbles and falls easily. She is a this is normal for her and is why she uses a walker. 1130: We reviewed all results including findings of her old stroke which she says is related to her deficits of her legs and why she is occasionally following. We did consider her ability to be in risk for falls at home which she feels is not a big issue, she does not want management for. She feels comfortable and would like to go home. They are able to ambulate here in the emergency department simulating her walker with out significant deficit. As she has not been eating or drinking very well, she has been given IV fluids here and a lunch meal. 1230 patient is now vomiting her lunch, and corroborating a poor appetite for the last week where nausea and vomiting has started yesterday morning. She denies abdominal pain. We will do CT scan of the abdomen to rule out small bowel obstruction CT of abdomen was also reviewed by me and she has rather large fecal load at the early portion of her cecum with constipation and a moderate fecal load throughout the rest of her colon. There is no obstructive pattern I have reviewed the CT read by the radiologist. We will have her take MiraLAX every day for the next 3 days for a bowel cleanse. Patient otherwise has negative workup here, stable vital signs, sleeping comfortably and eating well. She is appropriate for outpatient follow-up.
[2024-10-27 06:25] LABS: Basophils % (Auto) 1 % (0-2.5); Eosinophils # (Auto) 0.3 Thou/mm3 (0.0-0.5); Eosinophils % (Auto) 4 % (0-10); Hematocrit 34.1 % (36.0-46.0); Immature Granulocytes % (Auto) 1 % (0-0); Immature Granulocytes Auto 0.09 Thou/mm3 (0.00-0.00); Lymphocytes # (Auto) 2.5 Thou/mm3 (1.0-4.8); Lymphocytes % (Auto) 30 % (10-50); Mean Corpuscular HGB Conc 32.3 g/dl (31.0-37.0); Mean Corpuscular Hemoglobin 27.2 pg (25.0-35.0); Mean Corpuscular Volume 84 fL (80-100); Monocytes # (Auto) 0.8 Thou/mm3 (0.0-0.8); Monocytes % (Auto) 10 % (0-12); Neutrophils # (Auto) 4.6 Thou/mm3 (1.8-7.7); Neutrophils % (Auto) 54 % (37-80); Nucleated Red Blood Cell % 0 /100 WBC (0); Platelet Count 241 Thou/mm3 (140-440); RDW Standard Deviation 41.9 fL (36.4-46.3); Red Blood Count 4.04 Miln/mm3 (4.00-5.20); White Blood Count 8.4 Thou/mm3 (3.6-11.0)
[2024-10-27 06:49] LABS: Alanine Aminotransferase 13 U/L (10-49); Albumin/Globulin Ratio 1.5 (1.2-2.2); Alkaline Phosphatase 52 U/L (46-116); Anion Gap 8 (7-16); Aspartate Amino Transferase 15 U/L (0-34); BUN/Creatinine Ratio 17 Ratio (12-20); Bilirubin,Total 0.3 mg/dL (0.3-1.2); Blood Urea Nitrogen 39 mg/dL (9-23); Calcium 9.7 mg/dL (8.3-10.6); Calcium (Corrected) 9.7 mg/dL (8.5-10.1); Carbon Dioxide 29.2 mMol/L (20.0-31.0); Chloride 102 mMol/L (98-107); Creatinine (Component) 2.3 mg/dL (0.6-1.3); Estimated Creatinine Clearance 24.6 mL/min (>60); Free T4 (Free Thyroxine) 1.18 ng/dL (0.89-1.76); Globulin 2.7 gm/dL (2.3-3.5); Glucose 194 mg/dL (74-106); Osmolality,Calculated 291 (275-295); Potassium 4.6 mMol/L (3.4-5.1); Sodium 139 mMol/L (136-145); Thyroid Stimulating Hormone 0.68 uIU/mL (0.55-4.78); Total Protein 6.7 gm/dL (5.7-8.2); eGFR 23 See Note
--- NOTE | 2024-10-27 07:21 | PC.NURSE ---
Pt. here from home to room 6, pt. laying in bed resting, pt. stating that she is still unsteady on her feet, pt. states she uses a walker at home, but she isn't doing much besides getting up to use the RR. Pt. states she is still getting dizzy. Pt. states she is having numbness to her right leg and foot, pt. states it has been doing that for months.
--- NOTE | 2024-10-27 07:25 | PC.NURSE ---
Dr. Murrell is bedside talking with pt., assisted pt. out of bed and pt. steady on her feet until Dr. Murrell asked her to put her feet together then pt. became unsteady and we assisted pt. back to bed.
[2024-10-27] MEDS: SODIUM CHLORIDE 0.9% 1000 ML 1,000 ML 999 ML IV ×2 (11:40→13:01)
--- NOTE | 2024-10-27 13:46 | XR_ITS ---
Examination: CT abdomen and pelvis without contrast. Coronal 3-D reconstructions. Sagittal 2-D reconstructions. Date and time of exam:October 27, 2024 1447 hrs. Indications: Onset nausea vomiting today CTDI: vol (mGy): 8.46 DLP: (mGycm): 410 Technique: Axial images of the abdomen have been obtained, 3 mm slice thickness Intravenous contrast material has not been administered. Low dose protocols were performed. One or more of the following dose reduction techniques were used; automated exposure control, adjustment of the mA and/or KV according to patient size, use of iterative reconstruction technique. Findings: Minor atelectasis in the left lower lobe Liver is irregular in contour no focal liver lesions Gallstones No definite gallbladder wall thickening Spleen is not enlarged No pancreatic or adrenal mass No renal or ureteral calculi 15 mm lateral right renal cyst Abdominal aortic calcification no aneurysmal dilatation Large amounts of stool in the cecum, no pericecal inflammatory change No definite colonic lesion Dilated small bowel loops are not evident No diverticulitis Partially retroverted uterus Cystic mass posterior left pelvis, 5.6 cm Urinary bladder intact Advanced degenerative disc disease L3-L4, L4-L5 Impression: Suspect primary hepatocellular disease Cholelithiasis, recommend hepatobiliary sonography follow-up Large amounts of stool in the cecum but no pericecal inflammatory change and no definite colonic lesion in the ascending colon, dilated small bowel loops are not evident Cystic mass posterior left pelvis 5.6 cm, recommend pelvic sonography follow-up
[2024-11-02 06:41] LABS: Lyme Antibody Screen <0.90 INDEX
== END 2024-10-27 20:45 | disposition home or self-care (01) ==
PROVIDERS: Emergency Medicine; Emergency Provider Emergency Medicine; PCP Family Medicine
DX: R51.9 Headache, unspecified (principal); M54.2 Cervicalgia; I10 Essential (primary) hypertension; J44.9 Chronic obstructive pulmonary disease, unspecified; E11.9 Type 2 diabetes mellitus without complications; Z99.81 Dependence on supplemental oxygen; K59.00 Constipation, unspecified; R11.2 Nausea with vomiting, unspecified; Z86.73 Personal history of transient ischemic attack (TIA), and cerebral infarction without residual deficits
CPT/HCPCS: 36415; 70450; 70544; 70551; 71045; 72040; 72125; 72141; 72148; 74176; 80053; 84439; 84443; 85025; 86618; 87400; 87811; 93005; 96361; 96365; 96375; 96376; 99284; J0131; J1885; J2060; J2405; J7030

== ENCOUNTER 2024-10-27 21:05 | Emergency (ER) | payer MEDICAID, SELFPAY | END 2024-10-27 21:07 | disposition left against medical advice (07) | LOC: SERX 21:53 | PROVIDERS: Emergency Provider Emergency Medicine | DX: Z53.21 Procedure and treatment not carried out due to patient leaving prior to being seen by health care provider (principal) ==

== ENCOUNTER 2024-10-29 06:54 | Emergency (ER) | payer MEDICAID, SELFPAY ==
[2024-10-29] VITALS (15 sets, daily range): BP systolic 123–160; BP diastolic 56–70; PULSE 82–105; RESP 14–24; TEMP 36.6–37.4; O2SAT 85–99; BMI 25.6
--- NOTE | 2024-10-29 07:50 | PC.NURSE ---
PT HERE WITH C/O DIFF BREATHING TODAY. pT STATES WAS HERE YESTERDAY ALSO. STATES STILL SMOKING. pT KEEPS ASKING 'AM I DIEING AND INFORMED NOT AT THIS TIME BUT YOU NEED TO STOP SMOKING OR YOU MAY .
--- NOTE | 2024-10-29 08:44 | XR_ITS ---
Examination: AP chest single view Technique one AP portable semiupright chest single view Exam date and time: October 29, 2024 0926 hours Comparison October 27, 2024 INDICATIONS: Shortness of breath today. FINDINGS: Normal heart size No lobar pneumonia or pulmonary edema Prominent osteopenia IMPRESSION: No lobar pneumonia or pulmonary edema
[2024-10-29] MEDS: predniSONE 20 MG TABLET 60 MG PO (08:56)
--- NOTE | 2024-10-29 08:59 | PC.NURSE ---
dr informed that nurse having trouble starting iv
--- NOTE | 2024-10-29 09:17 | PD.EDSOB ---
ED SOB =RME/HPI General Chief Complaint: Shortness of Breath/Dyspnea Stated Complaint: SOB Arrival date/time: 10/29/24 06:54 RME / HPI RME / HPI Narrative: 64 year old female with history of AFib, COPD, hypertension, diabetes, recurrent hospitalizations for congestive heart failure and COPD exacerbations presents to the ED BIBA for evaluation of shortness of breath today. Per medics report, patient was given two Albuterol breathing treatments prior to arrival with some improvement. Patient additionally complains of dizziness, abdominal pain, and nausea today. Pain described as aching in sensation and located throughout abdomen. Denies any fevers, chills, sweats, chest pain, vomiting, diarrhea, or constipation. Related Data Home Medications ?Medication ?Instructions ?Recorded ?Confirmed methadone 10 mg/5 mL oral solution 100 mg PO QDAY 02/07/24 08/04/24 nitroglycerin 0.4 mg sublingual 0.4 mg buccal Q5MIN PRN Chest Pain 02/07/24 08/04/24 tablet Previous Rx's ?Medication ?Instructions ?Recorded tramadol 50 mg tablet 50 mg PO Q8H PRN pain #20 tabs 04/06/24 albuterol sulfate 90 mcg/actuation 1 puff inhalation QID PRN 08/06/24 aerosol inhaler shortness of breath or wheezing #8.5 grams aspirin 81 mg tablet,delayed 81 mg PO QDAY #30 tabs 08/06/24 release buspirone 5 mg tablet 5 mg PO QDAY #30 tabs 08/06/24 fluticasone fur. 200 mcg-umeclid 1 inh inhalation QDAY #60 ea 08/06/24 62.5 mcg-vilant 25 mcg inhalat.powder (Trelegy Ellipta) furosemide 20 mg tablet (Lasix) 20 mg PO QAM #30 tabs 08/06/24 hydralazine 100 mg tablet 100 mg PO TID #90 tabs 08/06/24 lactulose 10 gram/15 mL oral 10 g (15 mL) PO QDAY PRN 08/06/24 solution constipation #3,785 mL lidocaine 5 % topical patch 1 patch topical QDAY #30 ea 08/06/24 spironolactone 50 mg tablet 50 mg PO QDAY #30 tabs 08/06/24 insulin glargine 100 unit/mL (3 26 unit (0.26 mL) subcut QPM #15 mL 08/07/24 mL) subcutaneous pen (Basaglar KwikPen U-100 Insulin) ciprofloxacin HCl 500 mg tablet 500 mg PO BID #14 tabs 10/23/24 (Cipro) meclizine 50 mg tablet 50 mg PO BID PRN dizziness or 10/27/24 vertigo #10 tabs ondansetron 4 mg disintegrating 4 mg PO Q8H PRN nausea and 10/27/24 tablet vomiting #10 tabs polyethylene glycol 3350 17 gram 17 g PO BID 3 days #14 ea 10/27/24 oral powder packet (ClearLax) Allergies Allergy/AdvReac Type Severity Reaction Status Date / Time codeine Allergy Severe RASH Verified 10/29/24 08:11 diphenhydramine HCl Allergy Severe Hives Verified 10/29/24 08:11 egg Allergy Severe Rash Verified 10/29/24 08:11 Penicillins Allergy Severe SWELLING, Verified 10/29/24 08:11 RESP DISTRESS pentazocine (From Talwin) Allergy Severe Hives Verified 10/29/24 08:11 Review of Systems Review of Systems Narrative Review of Systems: Gen: No fever, no chills, no weight loss, +dizziness EYES: No discharge, no visual changes, no pain HEENT: No ear pain, no congestion, no sore throat PULM: + shortness of breath, no cough, no congestion CV: No chest pain, no palpitations, no chest tightness GI: + nausea, no vomiting, no diarrhea, + pain, no constipation : No frequency, no urgency,? no dysuria Musc/skel: No joint pain, no back pain Skin: No rash, no ecchymosis, no lesions Neuro: No weakness, no headache Past Medical History Past Medical History NEUROLOGIC: Positive Neurological Disorders and Cerebrovascular Accident CARDIAC: Positive Cardiac Disorders, Myocardial Infarction, Cardiac Arrhythmia, Atrial Fibrillation, Angina, Hypercholesterolemia, Congestive Heart Failure, Edema and Hypertension RESPIRATORY: Positive Chronic Obstructive Pulmonary Disease (COPD), Asthma, Bronchitis, Emphysema and Pneumonia MUSCULOSKELETAL: Positive Musculoskeletal Disorders and Arthritis ENT: Positive Cataracts and Blind ENDOCRINE: Positive Endocrine Disorders, Diabetes Mellitus Type 1 and Diabetes Mellitus Type 2 HEMATOLOGIC: Positive Anemia PSYCHO/SOCIAL: Positive Recreational Drug Use, Depression and Anxiety OTHER HISTORY: Positive Hospitalization and Shingles Family History FAMILY HISTORY: Positive Family Cardiac Disorders Surgical History SURGICAL: Positive Eye Surgery, Tonsillectomy and Abdominal Surgery Social History SMOKING STATUS: Current some day smoker SECOND HAND EXPOSURE: No SUBSTANCE USE: former substance user, heroin and methamphetamine (Former drug use, states she quit 20 years ago; tested positive for methamphetamine 03/31/2023.) ED Exam Narrative Physical exam: GENERAL APPEARANCE: AxOx4, nontoxic appearing HEENT: NC, AT. MMM. EOMI, clear conjunctiva, oropharynx clear. NECK: Supple without lymphadenopathy. No stiffness or restricted ROM. HEART: Normal rate and regular rhythm, normal S1/S1, no m/r/g LUNGS: coarse rhonchi in all lung mehta, moving air well. No crackles or wheezes are heard. ABDOMEN: Soft, right upper and right lower abdominal tenderness, no rebound, no involuntary guarding, significant voluntary guarding unable to do deep palpation, nondistended with good bowel sounds heard. BACK: No midline C/T/L spine pain or deformity, No CVAT, no obvious deformity. EXTREMITIES: Without cyanosis, clubbing or edema. MUSCULOSKELETAL: FROM of all major joints, no chest tenderness NEUROLOGICAL: Grossly nonfocal. Alert and oriented, moving all 4 extremities. CN not formally tested but appear grossly intact. Skin: Warm and dry without any rash. Course Course Course Narrative: chest xray ordered to help determine etiology of shortness of breath. 1800: Patient signed out to Dr. Rodriguez pending UA, reassessment, and final disposition. Quality Measures none Orders Category Date Time Status Bedside COVID-19 Antigen Test NOW Care 10/29/24 08:44 Completed Bedside Influenza A&B Antigen Test NOW Care 10/29/24 08:[address] chest abdomen pelvis wo Stat Exams 10/29/24 10:11 Completed US gall bladder Stat Exams 10/29/24 10:11 Completed XR chest 1V Stat Exams 10/29/24 08:44 Completed CBC Stat Lab 10/29/24 09:19 Completed CMP [Comprehensive Metabolic Panel] Stat Lab 10/29/24 09:19 Completed Lactate (Lactic Acid) Stat Lab 10/29/24 09:19 Completed Lipase Stat Lab 10/29/24 09:19 Completed Procalcitonin Stat Lab 10/29/24 09:19 Completed ALBUTEROL RT 0.5ml [Proventil Rt 0.5ml] Med 10/29/24 08:43 Discontinued 10 mg INH X1 ONE ALBUTEROL RT 3ml [Proventil Rt 3ml] Med 10/29/24 17:20 Discontinued 2.5 mg INH X1 ONE Albuterol/Ipratr Rt Blanca [Duoneb Rt Blanca] Med 10/30/24 06:05 Discontinued 3 ml INH X1 ONE Famotidine Inj [Pepcid Inj] Med 10/29/24 10:06 Discontinued 40 mg IVP X1 ONE Ipratropium [place] Rt Blanca [Atrovent Rt Blanca] Med 10/29/24 08:43 Discontinued 1 mg INH X1 ONE Magnesium Citrate Liqd [Citrate of Magnesia Liqd] Med 10/29/24 11:44 Discontinued 300 ml PO X1 ONE NA NANCE/NAHCO3/KATHLEEN/PEG (Golytely) [Golytely] Med 10/29/24 16:01 Discontinued 2,000 ml PO X1 ONE Ondansetron Inj [Zofran Inj] Med 10/29/24 10:06 Discontinued 4 mg IV X1 ONE Ondansetron Inj [Zofran Inj] Med 10/29/24 23:05 Discontinued 4 mg IV X1 ONE Sodium Chloride Rt Blanca 0.9% [NS Rt Blanca 0.9%] Med 10/29/24 08:43 Discontinued 3 ml INH PRN PRN predniSONE Med 10/29/24 08:43 Discontinued 60 mg PO X1 ONE Reevaluation(s) Reevaluation #1: Patient has not had a bowel movement with the magnesium citrate. Time: 15:45 Vital Signs Vital signs: Vital Signs Temperature 98.1 F 10/29/24 06:55 Pulse Rate 94 10/29/24 06:55 Respiratory Rate 20 10/29/24 06:55 Blood Pressure 127/66 10/29/24 06:55 Pulse Oximetry (%) 98 10/29/24 06:55 Oxygen Delivery Method Nasal Cannula 10/29/24 06:55 Oxygen Flow Rate 6 10/29/24 06:55 Pulse ox is 93% on room air which is borderline low. Shortness of Breath / Dyspnea MDM Narrative MDM Narrative:: Anju Fuller am scribing for and in the presence of Dr. Murrell. Patient data External records reviewed:: [facility] previous records (I reviewes yesterday's ED visit ) and EMS form Clinical information provided by:: patient and EMS Social determinants that could affect healthcare access:: none Patient has the following chronic illnesses:: AFib, COPD, hypertension, diabetes, recurrent hospitalizations for congestive heart failure and COPD exacerbations How is presenting disease/condition affected by chronic disease/condition?: exacerbated by Evaluation data The following diagnostics were reviewed and interpreted by me:: lab results and radiology exam(s) Lab and/or radiology exams considered but not ordered:: None Interpretation Summary: Ordering Physician: Flavio Murrell MD Date of Service: 10/29/24 Procedure(s): XR chest 1V Accession Number(s): [id number] cc: Apolinar Tai MD; Flavio Murrell MD; Acosta Kumari MD~ Examination: AP chest single view Technique one AP portable semiupright chest single view Exam date and time: October 29, 2024 0926 hours Comparison October 27, 2024 INDICATIONS: Shortness of breath today. FINDINGS: Normal heart size No lobar pneumonia or pulmonary edema Prominent osteopenia IMPRESSION: No lobar pneumonia or pulmonary edema Dictated By:Acosta Kumari MD Signed By:<Electronically signed by Acosta Kumari MD in OV>10/29/24 0932 Ordering Physician: Flavio Murrell MD Date of Service: 10/29/24 Procedure(s): CT chest abdomen pelvis wo Accession Number(s): [id number] cc: Apolinar Tai MD; Flavio Murrell MD; Acosta Kumari MD~ Examination: CT chest, without intravenous contrast. CT abdomen, without intravenous contrast. CT pelvis, without intravenous contrast. 2-D sagittal and coronal reconstructions. 3-D reconstructions. Date and time of exam:October 29, 2024 1047 hours INDICATIONS: Chest pain right upper abdominal pain right lower abdominal pain today CTDI vol (mgy) 7.04 DLP (MGycm)512 Technique: Multiple CT images, 3.0 mm slice thickness, obtained chest, abdomen, pelvis, with the high-resolution 64 slice scanner.. Sagittal and coronal 2-D reconstructions are obtained. 3-D reconstructions Low dose protocols were performed. One or more of the following dose reduction techniques were used; automated exposure control, adjustment of the mA and/or KV according to patient size, use of iterative reconstruction technique. Findings: 4 mm left thyroid nodule No thoracic aortic aneurysmal dilatation Main pulmonary artery segment 37 mm Mild calcification left anterior descending coronary artery No paratracheal tracheobronchial or bronchopulmonary adenopathy 4 mm pulmonary nodule right upper lobe image 133 6 mm pulmonary nodule right lower lobe image 151 4 mm pulmonary nodule right lower lobe image 163 Atelectasis in the left lower lung zone Liver is irregular in contour Tiny gallstones Spleen is not enlarged Hypodense mass in tail the pancreas, 24 mm Moderate bilateral renal parenchymal scar formation 15 mm lateral right renal cyst No hydronephrosis or ureteral calculi Abdominal aortic calcification no aneurysmal dilatation Large amounts of stool in the cecum Normal appendix No bowel obstruction Atrophic uterus Posterior left pelvic cystic mass 5.7 cm Severe osteopenia Advanced degenerative disc disease L4-L5 Moderate narrowing hip joints IMPRESSION: 4 mm left thyroid nodule Pulmonary artery hypertension Noncalcified pulmonary nodules as above, with this study as baseline recommend 6 month follow-up CT chest without contrast Primary hepatocellular disease Cholelithiasis, tiny gallstones, recommend hepatobiliary sonography follow-up 24 mm mass tail of the pancreas, recommend MRI abdomen pancreas follow-up pre and postcontrast Large amounts of stool in the cecum Normal appendix Posterior left pelvic cystic mass 5.7 cm, recommend pelvic sonography follow-up Dictated By:Acosta Kumari MD Signed By:<Electronically signed by Acosta Kumari MD in OV>10/29/24 1134 Ordering Physician: Flavio Murrell MD Date of Service: 10/29/24 Procedure(s): US gall bladder Accession Number(s): [id number] cc: Apolinar Tai MD; Flavio Murrell MD; Acosta Kumari MD~ Examination: Abdomen sonogram, Limited Date and time of exam: October 29, 2024 1249 hours INDICATIONS: Epigastric pain beginning 2 days ago Technique: Real-time mendoza scale transabdominal sonographic images of the upper abdomen obtained. Findings: Sludge ball at the gallbladder neck 15 mm No gallstones Gallbladder wall normal Common bile duct 0.3 cm Pancreatic head 2.6 cm Liver 16.4 cm fatty infiltration smooth contour no focal liver lesions Normal hepatopedal portal venous oh Patent IVC IMPRESSION: Gallbladder sludge Negative for cholelithiasis, negative for cholecystitis Mild hepatomegaly fatty liver Dictated By:Acosta Kumari MD Signed By:<Electronically signed by Acosta Kumari MD in OV>10/29/24 1346 Medications / Prescriptions Medications or Prescriptions considered but not ordered:: None Medication administrations:: Medication Administration History Discontinued Medications Albuterol (Albuterol Rt 2.5 Mg/0.5 Ml Nebu) 10 mg INH X1 ONE Stop: 10/29/24 08:44 Last Admin: 10/29/24 09:18 Dose: 10 mg Documented By: ERAN Albuterol (Albuterol Rt 2.5 Mg/3 Ml Nebu) 2.5 mg INH X1 ONE Stop: 10/29/24 17:21 Last Admin: 10/29/24 17:41 Dose: 2.5 mg Documented By: NE Albuterol/Ipratropium (Albuterol/Ipratropium (Duoneb) Rt Blanca 3 Ml Nebu) 3 ml INH X1 ONE Stop: 10/30/24 06:06 Last Admin: 10/30/24 06:17 Dose: 3 ml Documented By: HEATHER Famotidine (Famotidine Inj 10 Mg/Ml Vial 2 Ml) 40 mg IVP X1 ONE Stop: 10/29/24 10:07 Last Admin: 10/29/24 10:29 Dose: 40 mg Documented By: KDC Ipratropium [place] (Ipratropium Rt 0.5 Mg/ 2.5 Ml Nebu) 1 mg INH X1 ONE Stop: 10/29/24 08:44 Last Admin: 10/29/24 09:18 Dose: 1 mg Documented By: BA Magnesium Citrate (Magnesium Citrate 300 Ml Btl) 300 ml PO X1 ONE Stop: 10/29/24 11:45 Last Admin: 10/29/24 12:03 Dose: 300 ml Documented By: BD Ondansetron HCl (Ondansetron Inj 2 Mg/Ml Inj 2 Ml) 4 mg IV X1 ONE; Protocol Stop: 10/29/24 10:07 Last Admin: 10/29/24 10:27 Dose: 4 mg Documented By: KDC Ondansetron HCl (Ondansetron Inj 2 Mg/Ml Inj 2 Ml) 4 mg IV X1 ONE; Protocol Stop: 10/29/24 23:06 Last Admin: 10/29/24 23:39 Dose: 4 mg Documented By: EF Polyethylene Glycol/Electrolytes (Na Nance/Nahco3/Kathleen/Peg (Golytely) 4,000 Ml Btl) 2,000 ml PO X1 ONE Stop: 10/29/24 16:02 Last Admin: 10/29/24 16:39 Dose: 4 l Documented By: BD Prednisone (Prednisone 20 Mg Tablet) 60 mg PO X1 ONE Stop: 10/29/24 08:44 Last Admin: 10/29/24 08:56 Dose: 60 mg Documented By: KDC Sodium Chloride (Sodium Chloride Rt Blanca 0.9% 3 Ml Nebu) 3 ml INH PRN PRN PRN Reason: SOLN Stop: 11/28/24 08:42 See above Consultations Consultation(s) initiated? (list below): No Diagnosis Shortness of Breath Differential Diagnosis: acute exacerbation of chronic obstructive airways disease, congestive heart failure, community acquired pneumonia, asthma with exacerbation and other (Abdominal pain, constipation, cholelithiasis) Most likely diagnosis given after review of the tests above:: see below Admission Indicated Admission indicated?: not indicated Explain why admission is indicated or not indicated:: 1800: Patient signed out to Dr. Rodriguez pending UA, reassessment, and final disposition. Admission Request Was there a request for admission?: No Disposition Plan Disposition Plan: other (specify) (Patient signed out to Dr. Rodriguez. ) Discharge Plan Plan Patient Disposition: HOME (Self Care) Prescriptions/Referrals Prescriptions/Med Rec: No Action tramadol 50 mg tablet 50 mg PO Q8H PRN (Reason: pain) Qty: 20 0RF hydralazine 100 mg tablet 100 mg PO TID Qty: 90 0RF albuterol sulfate 90 mcg/actuation HFA aerosol inhaler 1 puff inhalation QID PRN (Reason: shortness of breath or wheezing) Qty: 8.5 0RF aspirin 81 mg tablet,delayed release (DR/EC) 81 mg PO QDAY Qty: 30 0RF buspirone 5 mg tablet 5 mg PO QDAY Qty: 30 0RF furosemide [Lasix] 20 mg tablet 20 mg PO QAM Qty: 30 0RF lactulose 10 gram/15 mL solution 10 g PO QDAY PRN (Reason: constipation) Qty: 3785 0RF lidocaine 5 % adhesive patch,medicated 1 patch topical QDAY Qty: 30 0RF Rx Instructions: leave on most painful area for up to 12 hrs spironolactone 50 mg tablet 50 mg PO QDAY Qty: 30 0RF Trelegy Ellipta 200-62.5-25 mcg blister with device 1 inh inhalation QDAY Qty: 60 0RF insulin glargine [Basaglar KwikPen U-100 Insulin] 100 unit/mL (3 mL) insulin pen 26 unit subcut QPM Qty: 15 0RF ciprofloxacin HCl [Cipro] 500 mg tablet 500 mg PO BID Qty: 14 0RF methadone 10 mg/5 mL Solution 100 mg PO QDAY nitroglycerin 0.4 mg Tablet, Sublingual 0.4 mg BUCCAL Q5MIN PRN (Reason: Chest Pain) polyethylene glycol 3350 [ClearLax] 17 gram powder in packet 17 g PO BID 3 Days Qty: 14 0RF ondansetron 4 mg tablet,disintegrating 4 mg PO Q8H PRN (Reason: nausea and vomiting) Qty: 10 0RF meclizine 50 mg tablet 50 mg PO BID PRN (Reason: dizziness or vertigo) Qty: 10 0RF Referrals: Apolinar Tai MD [Primary Care Provider] - In 1 week Problem List Clinical Impression: Constipation, COPD exacerbation Patient/Caregiver Discharge Instructions Education Materials: ED Constipation (Adult), ED COPD Flare Print Language: Belarusian Stand Alone Forms: [facility] Award Info., Patient Portal Info Letter
[2024-10-29] MEDS: ALBUTEROL RT 2.5 MG/0.5 ML NEBU 10 MG INH (09:18)
[2024-10-29] MEDS: IPRATROPIUM RT 0.5 MG/ 2.5 ML NEBU 1 MG INH (09:18)
[2024-10-29 09:29] LABS: Lactate (Lactic Acid) 1.3 mMol/L (0.4-2.0)
[2024-10-29 09:31] LABS: Basophils % (Auto) 0 % (0-2.5); Eosinophils # (Auto) 0.1 Thou/mm3 (0.0-0.5); Eosinophils % (Auto) 1 % (0-10); Immature Granulocytes % (Auto) 1 % (0-0); Immature Granulocytes Auto 0.11 Thou/mm3 (0.00-0.00); Lymphocytes % (Auto) 8 % (10-50); Mean Corpuscular HGB Conc 32.4 g/dl (31.0-37.0); Mean Corpuscular Hemoglobin 27.2 pg (25.0-35.0); Mean Corpuscular Volume 84 fL (80-100); Monocytes # (Auto) 0.6 Thou/mm3 (0.0-0.8); Monocytes % (Auto) 5 % (0-12); Neutrophils % (Auto) 86 % (37-80); Nucleated Red Blood Cell % 0 /100 WBC (0); Platelet Count 203 Thou/mm3 (140-440); RDW Standard Deviation 42.5 fL (36.4-46.3); Red Blood Count 4.04 Miln/mm3 (4.00-5.20); White Blood Count 11.7 Thou/mm3 (3.6-11.0)
[2024-10-29 10:00] LABS: Alanine Aminotransferase 13 U/L (10-49); Albumin, Serum 4.1 gm/dL (3.4-4.8); Albumin/Globulin Ratio 1.5 (1.2-2.2); Alkaline Phosphatase 49 U/L (46-116); Anion Gap 12 (7-16); Aspartate Amino Transferase 18 U/L (0-34); BUN/Creatinine Ratio 15 Ratio (12-20); Bilirubin,Total 0.3 mg/dL (0.3-1.2); Blood Urea Nitrogen 27 mg/dL (9-23); Calcium 9.7 mg/dL (8.3-10.6); Calcium (Corrected) 9.7 mg/dL (8.5-10.1); Carbon Dioxide 24.5 mMol/L (20.0-31.0); Chloride 105 mMol/L (98-107); Creatinine (Component) 1.8 mg/dL (0.6-1.3); Estimated Creatinine Clearance 31.4 mL/min (>60); Globulin 2.8 gm/dL (2.3-3.5); Glucose 186 mg/dL (74-106); Lipase 32 U/L (12-53); Osmolality,Calculated 291 (275-295); Potassium 4.1 mMol/L (3.4-5.1); Procalcitonin 0.09 ng/ml (0.0-0.49); Sodium 141 mMol/L (136-145); Total Protein 6.9 gm/dL (5.7-8.2); eGFR 31 See Note
--- NOTE | 2024-10-29 10:05 | PC.NURSE ---
pt c/o chest and abd burning. Informed Dr. Murrell and orders received
--- NOTE | 2024-10-29 10:11 | XR_ITS ---
Examination: Abdomen sonogram, Limited Date and time of exam: October 29, 2024 1249 hours INDICATIONS: Epigastric pain beginning 2 days ago Technique: Real-time mendoza scale transabdominal sonographic images of the upper abdomen obtained. Findings: Sludge ball at the gallbladder neck 15 mm No gallstones Gallbladder wall normal Common bile duct 0.3 cm Pancreatic head 2.6 cm Liver 16.4 cm fatty infiltration smooth contour no focal liver lesions Normal hepatopedal portal venous oh Patent IVC IMPRESSION: Gallbladder sludge Negative for cholelithiasis, negative for cholecystitis Mild hepatomegaly fatty liver
--- NOTE | 2024-10-29 10:11 | XR_ITS ---
Examination: CT chest, without intravenous contrast. CT abdomen, without intravenous contrast. CT pelvis, without intravenous contrast. 2-D sagittal and coronal reconstructions. 3-D reconstructions. Date and time of exam:October 29, 2024 1047 hours INDICATIONS: Chest pain right upper abdominal pain right lower abdominal pain today CTDI vol (mgy) 7.04 DLP (MGycm)512 Technique: Multiple CT images, 3.0 mm slice thickness, obtained chest, abdomen, pelvis, with the high-resolution 64 slice scanner.. Sagittal and coronal 2-D reconstructions are obtained. 3-D reconstructions Low dose protocols were performed. One or more of the following dose reduction techniques were used; automated exposure control, adjustment of the mA and/or KV according to patient size, use of iterative reconstruction technique. Findings: 4 mm left thyroid nodule No thoracic aortic aneurysmal dilatation Main pulmonary artery segment 37 mm Mild calcification left anterior descending coronary artery No paratracheal tracheobronchial or bronchopulmonary adenopathy 4 mm pulmonary nodule right upper lobe image 133 6 mm pulmonary nodule right lower lobe image 151 4 mm pulmonary nodule right lower lobe image 163 Atelectasis in the left lower lung zone Liver is irregular in contour Tiny gallstones Spleen is not enlarged Hypodense mass in tail the pancreas, 24 mm Moderate bilateral renal parenchymal scar formation 15 mm lateral right renal cyst No hydronephrosis or ureteral calculi Abdominal aortic calcification no aneurysmal dilatation Large amounts of stool in the cecum Normal appendix No bowel obstruction Atrophic uterus Posterior left pelvic cystic mass 5.7 cm Severe osteopenia Advanced degenerative disc disease L4-L5 Moderate narrowing hip joints IMPRESSION: 4 mm left thyroid nodule Pulmonary artery hypertension Noncalcified pulmonary nodules as above, with this study as baseline recommend 6 month follow-up CT chest without contrast Primary hepatocellular disease Cholelithiasis, tiny gallstones, recommend hepatobiliary sonography follow-up 24 mm mass tail of the pancreas, recommend MRI abdomen pancreas follow-up pre and postcontrast Large amounts of stool in the cecum Normal appendix Posterior left pelvic cystic mass 5.7 cm, recommend pelvic sonography follow-up
[2024-10-29] MEDS: ONDANSETRON INJ 2 MG/ML INJ 2 ML 4 MG IV ×2 (10:27→23:39)
[2024-10-29] MEDS: FAMOTIDINE INJ 10 MG/ML VIAL 2 ML 40 MG IVP (10:29)
[2024-10-29] MEDS: MAGNESIUM CITRATE 300 ML BTL PO (12:03)
--- NOTE | 2024-10-29 14:57 | PC.NURSE ---
PT UNABLE TO VOID AND MD INFORMED
--- NOTE | 2024-10-29 16:04 | PC.NURSE ---
called pharmacy for [place]
[2024-10-29] MEDS: NA SU/NAHCO3/KC/PEG (Golytely) 4,000 ML BTL 2000 ML PO (16:39)
--- NOTE | 2024-10-29 17:21 | PC.NURSE ---
PT ASSISTED UP TO BESIDE COMMODE AND VOIDED SMALL AMT URINE. STATES I COULDN'T POOP.
[2024-10-29] MEDS: ALBUTEROL RT 2.5 MG/3 ML NEBU INH (17:41)
--- NOTE | 2024-10-29 23:03 | PD.EDADDENDU ---
Emergency Room Addendum Addendum Narrative: 1800: Care assumed from Dr. Murrell, the previous shift emergency physician. Past medical, surgical, social and family history reviewed. Vitals and home medications reviewed. Results and treatment plan discussed. I will assume the care of the patient at this time and will follow the patient. Per Dr. Murrell, patient ia to be monitored throughout the night, drink GoLytely, and does not need to be admitted and requested the patient to be signed back out to him in the morning. OBSERVATION NOTE: The patient was placed in ED observation care at 10/29/24 at 1800 hours. The patient was placed in ED observation care because of pending re-evaluation in the morning. The patients past medical history, social history, and family history were reviewed. The plan of care will include serial examinations. 0600: Care signed out to Dr. Murrell (emergency physician). Past medical, surgical, social and family history reviewed. Vitals and home medications reviewed. Results and treatment plan discussed. They will assume the care of the patient at this time and will follow the patient, pending re-evaluation and final disposition. At this time, observation has ended.
[2024-10-30] VITALS (7 sets, daily range): BP systolic 144–176; BP diastolic 68–97; PULSE 67–89; RESP 16–19; TEMP 36.8–37.1; O2SAT 93–100
[2024-10-30] MEDS: ALBUTEROL/IPRATROPIUM (Duoneb) RT SOL 3 ML NEBU INH (06:17)
--- NOTE | 2024-10-30 09:14 | PC.NURSE ---
pt had med size bm with diarrhea. pt stated that she feels better and wants to go home. pt has no pain at this time.
--- NOTE | 2024-10-30 10:20 | PD.EDADDENDU ---
Emergency Room Addendum Addendum Narrative: 0600: Care assumed from Dr. Rodriguez, the previous shift emergency physician. Past medical, surgical, social and family history reviewed. Vitals and home medications reviewed. I will assume the care of the patient at this time, pending reassessment and final disposition. Please refer to the emergency department record for history and examination from initial visit.? 0920: Patient had a medium sized bowel movement and reports her pain has improved. We reviewed all the results, analysis, and treatment plans. Patient is amenable to discharge. Strict return precautions were outlined. Patient was discharged in stable condition. DISPOSITION: Home DIAGNOSIS: Constipation, COPD exacerbation
== END 2024-10-30 11:25 | disposition home or self-care (01) ==
PROVIDERS: Emergency Provider Emergency Medicine; PCP Family Medicine
DX: J44.1 Chronic obstructive pulmonary disease with (acute) exacerbation (principal); K59.00 Constipation, unspecified; I48.91 Unspecified atrial fibrillation; I11.0 Hypertensive heart disease with heart failure; I50.9 Heart failure, unspecified; E11.9 Type 2 diabetes mellitus without complications
CPT/HCPCS: 36415; 71045; 71250; 74176; 76705; 80053; 81001; 83605; 83690; 84145; 85025; 87400; 87811; 94640; 96374; 96375; 99284; A9270; J2405; J3490; J7512

== ENCOUNTER 2024-11-01 13:49 | Emergency (ER) | payer MEDICAID, SELFPAY ==
[2024-11-01] VITALS (7 sets, daily range): BP systolic 103–198; BP diastolic 79–96; PULSE 101–136; RESP 16–22; TEMP 36.4–37.6; O2SAT 94–99; BMI 25.6
--- NOTE | 2024-11-01 14:37 | EKG_ITS ---
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
--- NOTE | 2024-11-01 14:37 | XR_ITS ---
Examination: AP upright chest single view Technique one AP upright chest single view Exam date and time: November 01, 2024 1512 hours INDICATIONS: SOB beginning 2 days ago. FINDINGS: Normal heart size. Minor atelectasis left base. No lobar pneumonia or pulmonary edema. Mild vascular congestion. IMPRESSION: Mild vascular congestion.
--- NOTE | 2024-11-01 14:39 | PD.EDSOB ---
ED SOB =RME/HPI General Chief Complaint: Shortness of Breath/Dyspnea Stated Complaint: SOB Time Seen by Provider: 11/01/24 14:37 Arrival date/time: 11/01/24 13:49 RME / HPI RME / HPI Narrative: 64-year-old female patient with significant history of COPD, on home oxygen, was brought in by EMS for evaluation regarding worsening shortness of breath. According to the patient is being getting worse for the last several hours, severity moderate was using albuterol breathing treatment and oxygen still having worsening of symptoms. Also complained of bilateral arm pain. This been ongoing for the last few days denies any fever denies any other complaints except for chronic cough. Was given breathing treatment on the way to the emergency room. Related Data Home Medications ?Medication ?Instructions ?Recorded ?Confirmed methadone 10 mg/5 mL oral solution 100 mg PO QDAY 02/07/24 08/04/24 nitroglycerin 0.4 mg sublingual 0.4 mg buccal Q5MIN PRN Chest Pain 02/07/24 08/04/24 tablet Previous Rx's ?Medication ?Instructions ?Recorded tramadol 50 mg tablet 50 mg PO Q8H PRN pain #20 tabs 04/06/24 albuterol sulfate 90 mcg/actuation 1 puff inhalation QID PRN 08/06/24 aerosol inhaler shortness of breath or wheezing #8.5 grams aspirin 81 mg tablet,delayed 81 mg PO QDAY #30 tabs 08/06/24 release buspirone 5 mg tablet 5 mg PO QDAY #30 tabs 08/06/24 fluticasone fur. 200 mcg-umeclid 1 inh inhalation QDAY #60 ea 08/06/24 62.5 mcg-vilant 25 mcg inhalat.powder (Trelegy Ellipta) furosemide 20 mg tablet (Lasix) 20 mg PO QAM #30 tabs 08/06/24 hydralazine 100 mg tablet 100 mg PO TID #90 tabs 08/06/24 lactulose 10 gram/15 mL oral 10 g (15 mL) PO QDAY PRN 08/06/24 solution constipation #3,785 mL lidocaine 5 % topical patch 1 patch topical QDAY #30 ea 08/06/24 spironolactone 50 mg tablet 50 mg PO QDAY #30 tabs 08/06/24 insulin glargine 100 unit/mL (3 26 unit (0.26 mL) subcut QPM #15 mL 08/07/24 mL) subcutaneous pen (Basaglar KwikPen U-100 Insulin) ciprofloxacin HCl 500 mg tablet 500 mg PO BID #14 tabs 10/23/24 (Cipro) meclizine 50 mg tablet 50 mg PO BID PRN dizziness or 10/27/24 vertigo #10 tabs ondansetron 4 mg disintegrating 4 mg PO Q8H PRN nausea and 10/27/24 tablet vomiting #10 tabs albuterol sulfate 90 mcg/actuation 2 inh inhalation Q6H PRN shortness 11/01/24 breath activated powder of breath or wheezing #1 ea inhaler,sensor (Proair Digihaler) [id number] 3.3 4 drp otic (ear) TID 7 days #10 mL 11/01/24 mg-3 mg-10 mg-0.5 mg/mL ear drops,susp (Cortisporin-TC) prednisone 50 mg tablet 50 mg PO QDAY #7 tabs 11/01/24 Allergies Allergy/AdvReac Type Severity Reaction Status Date / Time codeine Allergy Severe RASH Verified 10/29/24 08:11 diphenhydramine HCl Allergy Severe Hives Verified 10/29/24 08:11 egg Allergy Severe Rash Verified 10/29/24 08:11 Penicillins Allergy Severe SWELLING, Verified 10/29/24 08:11 RESP DISTRESS pentazocine (From Talwin) Allergy Severe Hives Verified 10/29/24 08:11 Review of Systems Review of Systems Narrative Review of Systems: Review of system reviewed and within normal limits except mentioned in HPI ED Exam Narrative Physical exam: VITAL SIGNS: Reviewed. GENERAL APPEARANCE: Alert and interactive, follows commands, no acute distress, HEAD AND FACE: Non-traumatic. ENT: PERRL, pink conjunctivitis, eyelid no trauma, Mucous membrane moist. NECK: Supple, nontender, no nuchal rigidity. CHEST: Symmetric, no rales, no wheezing, no ronchi, no stridor, decreased breath sounds bilaterally. HEART: Regular rate, regular rhythm, no murmur, no gallops. ABDOMEN: Soft, positive bowel sounds, nondistended, no guarding, nontender, no rebound, no masses, RECTAL: Deferred. GENITAL: Deferred. NEUROLOGICAL: Gross motor function intact sensory function intact, Appropriate for age. MUSCULOSKELETAL: low back nontender, full range of motion. EXTREMITIES: Nontender, full range of motion. SKIN: Color pink, dry, no rash, no lacerations, no abrasions, no contusions. LYMPHATICS: Deferred. Course Quality Measures none Orders Category Date Time Status Bedside COVID-19 Antigen Test NOW Care 11/01/24 14:38 Completed Bedside Influenza A&B Antigen Test NOW Care 11/01/24 14:38 Completed EKG (ED ONLY) *Do not use* NOW Care 11/01/24 14:[address] head/brain wo con Stat Exams 11/01/24 18:41 Completed EKG (ED Only) Stat Exams 11/01/24 14:37 Draft XR chest 1V Stat Exams 11/01/24 14:37 Completed B-Type Natriuretic Peptide Stat Lab 11/01/24 16:30 Completed Blood Culture (Lab) Stat Lab 11/01/24 16:30 Received C-Reactive Protein Stat Lab 11/01/24 16:40 Completed CBC Stat Lab 11/01/24 16:30 Completed Comprehensive Metabolic Panel Stat Lab 11/01/24 16:40 Completed Lactate (Lactic Acid) Stat Lab 11/01/24 16:40 Completed Partial Thromboplastin Time Stat Lab 11/01/24 16:30 Completed Procalcitonin Stat Lab 11/01/24 16:40 Completed Prothrombin Time with INR Stat Lab 11/01/24 16:30 Completed RSV [Respiratory Syncytial Virus Ag] Stat Lab 11/01/24 16:47 Completed Troponin I Stat Lab 11/01/24 16:40 Completed VBG [Venous Blood Gas] Stat Lab 11/01/24 16:40 Completed Albuterol/Ipratr Rt Blanca [Duoneb Rt Blanca] Med 11/01/24 14:38 Discontinued 3 ml INH X1 ONE Albuterol/Ipratr Rt Blanca [Duoneb Rt Blanca] Med 11/01/24 20:43 Discontinued 3 ml INH X1 ONE Dexamethasone Inj [Decadron Inj] Med 11/01/24 14:38 Discontinued 10 mg IV X1 ONE Famotidine [Pepcid] Med 11/01/24 20:43 Discontinued 40 mg PO X1 ONE HYDROmorphone INJ [Dilaudid Inj] Med 11/01/24 21:33 Discontinued 1 mg IVP X1 ONE Ketorolac Inj [Toradol Inj] Med 11/01/24 16:53 Discontinued 30 mg IVP X1 ONE Metoclopramide Inj [Reglan Inj] Med 11/01/24 21:34 Discontinued 10 mg IVP X1 ONE Morphine Inj Med 11/01/24 18:42 Discontinued 4 mg IVP X1 ONE Ondansetron Inj [Zofran Inj] Med 11/01/24 20:23 Discontinued 4 mg IV X1 ONE predniSONE Med 11/01/24 20:43 Discontinued 60 mg PO X1 ONE Vital Signs Vital signs: Vital Signs Temperature 99.1 F 11/01/24 14:07 Pulse Rate 136 H 11/01/24 14:07 Respiratory Rate 22 H 11/01/24 14:07 Blood Pressure 137/79 H 11/01/24 14:07 Pulse Oximetry (%) 99 11/01/24 14:07 Oxygen Delivery Method Aerosol Mask 11/01/24 14:07 Shortness of Breath / Dyspnea MDM Narrative MDM Narrative:: 64-year-old female patient with significant history of COPD, on home oxygen, was brought in by EMS for evaluation regarding worsening shortness of breath. According to the patient is being getting worse for the last several hours, severity moderate was using albuterol breathing treatment and oxygen still having worsening of symptoms. Also complained of bilateral arm pain. This been ongoing for the last few days denies any fever denies any other complaints except for chronic cough. Was given breathing treatment on the way to the emergency room. CT scan of the head showed no acute pathology except for possible old infarcts which is already seen from previous MRI. Of the brain Results discussed with the patient. Patient was given DuoNeb breathing treatment, Solu-Medrol. Was also given Dilaudid IV. Prior to discharge patient provide significant improvement of symptoms. Patient data External records reviewed:: [facility] previous records Clinical information provided by:: patient Social determinants that could affect healthcare access:: none Patient has the following chronic illnesses:: COPD, chronic headache How is presenting disease/condition affected by chronic disease/condition?: exacerbated by Evaluation data The following diagnostics were reviewed and interpreted by me:: lab results, radiology exam(s) and EKG tracing(s) Lab and/or radiology exams considered but not ordered:: None Interpretation Summary: EKG shows sinus tachycardia, ventricular to 116 bpm,. Troponin 156 MS, no ST segment elevation depression noted. See other results in MDM Medications / Prescriptions Medications or Prescriptions considered but not ordered:: None Medication administrations:: Medication Administration History Discontinued Medications Albuterol/Ipratropium (Albuterol/Ipratropium (Duoneb) Rt Blanca 3 Ml Nebu) 3 ml INH X1 ONE Stop: 11/01/24 14:39 Last Admin: 11/01/24 15:31 Dose: 3 ml Documented By: JT Albuterol/Ipratropium (Albuterol/Ipratropium (Duoneb) Rt Blanca 3 Ml Nebu) 3 ml INH X1 ONE Stop: 11/01/24 20:44 Last Admin: 11/01/24 21:00 Dose: 3 ml Documented By: AH Dexamethasone Sodium Phosphate (Dexamethasone Sod Phos Inj 10 Mg/Ml Vial) 10 mg IV X1 ONE Stop: 11/01/24 14:39 Last Admin: 11/01/24 16:31 Dose: 10 mg Documented By: VG Famotidine (Famotidine 20 Mg Tablet) 40 mg PO X1 ONE Stop: 11/01/24 20:44 Last Admin: 11/01/24 20:57 Dose: 40 mg Documented By: CVL Hydromorphone HCl (Hydromorphone Inj 2 Mg/Ml Vial) 1 mg IVP X1 ONE Stop: 11/01/24 21:34 Last Admin: 11/01/24 22:41 Dose: Not Given Documented By: AC Non-Admin Reason: Other, see note Ketorolac Tromethamine (Ketorolac Inj 30 Mg/Ml Vial) 30 mg IVP X1 ONE Stop: 11/01/24 16:54 Last Admin: 11/01/24 17:41 Dose: 30 mg Documented By: LF Metoclopramide HCl (Metoclopramide Inj 5 Mg/Ml Vial 2 Ml) 10 mg IVP X1 ONE; Protocol Stop: 11/01/24 21:35 Last Admin: 11/01/24 22:21 Dose: 10 mg Documented By: AC Morphine Sulfate (Morphine Sulf Inj 10 Mg/Ml Vial) 4 mg IVP X1 ONE Stop: 11/01/24 18:43 Last Admin: 11/01/24 20:34 Dose: 4 mg Documented By: BOBBY Ondansetron HCl (Ondansetron Inj 2 Mg/Ml Inj 2 Ml) 4 mg IV X1 ONE; Protocol Stop: 11/01/24 20:24 Last Admin: 11/01/24 20:34 Dose: 4 mg Documented By: BOBBY Prednisone (Prednisone 20 Mg Tablet) 60 mg PO X1 ONE Stop: 11/01/24 20:44 Last Admin: 11/01/24 20:59 Dose: 60 mg Documented By: CVL Zofran morphine Dilaudid Reglan Pepcid Decadron and DuoNeb breathing treatment Consultations Consultation(s) initiated? (list below): No Diagnosis Shortness of Breath Differential Diagnosis: acute exacerbation of chronic obstructive airways disease, congestive heart failure and community acquired pneumonia Most likely diagnosis given after review of the tests above:: Chronic headache, exacerbation of COPD Admission Indicated Admission indicated?: not indicated Admission Request Was there a request for admission?: No Disposition Plan Disposition Plan: Discharge Discharge Attestation Discharge Attestation: The patient was given an opportunity to ask questions and understood the discharge instructions. Discharge instructions specifically effects, indications for sooner follow up or return to the emergency department, and the expected course of current diagnosis. Patient condition: Stable Discharge Plan Plan Patient Disposition: HOME (Self Care) Disposition Comment: stable Prescriptions/Referrals Prescriptions/Med Rec: New Cortisporin-TC 3.3-3-10-0.5 mg/mL drops,suspension 4 drp otic (ear) TID 7 Days Qty: 10 0RF Proair Digihaler 90 mcg/actuation aero powdr breath act w/sensor 2 inh inhalation Q6H PRN (Reason: shortness of breath or wheezing) Qty: 1 0RF prednisone 50 mg tablet 50 mg PO QDAY Qty: 7 0RF No Action tramadol 50 mg tablet 50 mg PO Q8H PRN (Reason: pain) Qty: 20 0RF hydralazine 100 mg tablet 100 mg PO TID Qty: 90 0RF albuterol sulfate 90 mcg/actuation HFA aerosol inhaler 1 puff inhalation QID PRN (Reason: shortness of breath or wheezing) Qty: 8.5 0RF aspirin 81 mg tablet,delayed release (DR/EC) 81 mg PO QDAY Qty: 30 0RF buspirone 5 mg tablet 5 mg PO QDAY Qty: 30 0RF furosemide [Lasix] 20 mg tablet 20 mg PO QAM Qty: 30 0RF lactulose 10 gram/15 mL solution 10 g PO QDAY PRN (Reason: constipation) Qty: 3785 0RF lidocaine 5 % adhesive patch,medicated 1 patch topical QDAY Qty: 30 0RF Rx Instructions: leave on most painful area for up to 12 hrs spironolactone 50 mg tablet 50 mg PO QDAY Qty: 30 0RF Trelegy Ellipta 200-62.5-25 mcg blister with device 1 inh inhalation QDAY Qty: 60 0RF insulin glargine [Basaglar KwikPen U-100 Insulin] 100 unit/mL (3 mL) insulin pen 26 unit subcut QPM Qty: 15 0RF ciprofloxacin HCl [Cipro] 500 mg tablet 500 mg PO BID Qty: 14 0RF methadone 10 mg/5 mL Solution 100 mg PO QDAY nitroglycerin 0.4 mg Tablet, Sublingual 0.4 mg BUCCAL Q5MIN PRN (Reason: Chest Pain) ondansetron 4 mg tablet,disintegrating 4 mg PO Q8H PRN (Reason: nausea and vomiting) Qty: 10 0RF meclizine 50 mg tablet 50 mg PO BID PRN (Reason: dizziness or vertigo) Qty: 10 0RF Referrals: Apolinar Tai MD [Primary Care Provider] - In 1 week Problem List Clinical Impression: Acute exacerbation of chronic obstructive pulmonary disease, Otitis externa Patient/Caregiver Discharge Instructions Discharge Activity: activity as tolerated Education Materials: COPD Meds Additional Instructions: Thank you for the opportunity for serving you today. You are stable for discharged . You are advised to: Follow-up with your PCP in 1 to 2 days Return to ED for worsening of symptoms Increase oral fluids Take medication as prescribed Print Language: Kazakh Stand Alone Forms: Kaylynn Award Info., Patient Portal Info Letter PA/COSTUME SPECIALIST Supervising Physician PA/COSTUME SPECIALIST Supervising Physician: MD Nakul
[2024-11-01] MEDS: ALBUTEROL/IPRATROPIUM (Duoneb) RT SOL 3 ML NEBU INH ×2 (15:31→21:00)
[2024-11-01] MEDS: DEXAMETHASONE SOD PHOS INJ 10 MG/ML VIAL IV (16:31)
[2024-11-01 16:49] LABS: Lactate (Lactic Acid) 1.5 mMol/L (0.4-2.0)
[2024-11-01 16:50] LABS: Base Excess, Venous 9 (-3-3); O2 Saturation, Venous 81 % (96-97); PCO2, Venous 27 mmHg (36-56); PO2, Venous 36 mmHg (15-58); pH, Venous 7.64 (7.33-7.66)
[2024-11-01 17:02] LABS: Basophils % (Auto) 0 % (0-2.5); Eosinophils # (Auto) 0.1 Thou/mm3 (0.0-0.5); Eosinophils % (Auto) 1 % (0-10); Hematocrit 35.2 % (36.0-46.0); Hemoglobin 11.5 g/dL (12.0-16.0); Immature Granulocytes % (Auto) 1 % (0-0); Immature Granulocytes Auto 0.07 Thou/mm3 (0.00-0.00); Lymphocytes # (Auto) 0.9 Thou/mm3 (1.0-4.8); Lymphocytes % (Auto) 10 % (10-50); Mean Corpuscular HGB Conc 32.7 g/dl (31.0-37.0); Mean Corpuscular Hemoglobin 27.7 pg (25.0-35.0); Mean Corpuscular Volume 85 fL (80-100); Monocytes # (Auto) 1.1 Thou/mm3 (0.0-0.8); Monocytes % (Auto) 13 % (0-12); Neutrophils # (Auto) 6.3 Thou/mm3 (1.8-7.7); Neutrophils % (Auto) 75 % (37-80); Nucleated Red Blood Cell % 0 /100 WBC (0); Platelet Count 175 Thou/mm3 (140-440); RDW Standard Deviation 41.7 fL (36.4-46.3); Red Blood Count 4.15 Miln/mm3 (4.00-5.20); White Blood Count 8.4 Thou/mm3 (3.6-11.0)
[2024-11-01 17:10] LABS: Partial Thromboplastin Time 22.9 Seconds (22.0-36.0); Prothrombin Time 11.1 Seconds (9.0-12.2)
[2024-11-01] MEDS: KETOROLAC INJ 30 MG/ML VIAL IVP (17:41)
[2024-11-01 17:49] LABS: B-Type Natriuretic Peptide 110 pg/mL (0-100)
[2024-11-01 18:00] LABS: Alanine Aminotransferase 14 U/L (10-49); Albumin, Serum 3.9 gm/dL (3.4-4.8); Albumin/Globulin Ratio 1.7 (1.2-2.2); Alkaline Phosphatase 41 U/L (46-116); Anion Gap 8 (7-16); Aspartate Amino Transferase 24 U/L (0-34); BUN/Creatinine Ratio 16 Ratio (12-20); Bilirubin,Total 0.3 mg/dL (0.3-1.2); Blood Urea Nitrogen 19 mg/dL (9-23); C-Reactive Protein < 0.4 mg/dL (0.0-0.9); Calcium 9.1 mg/dL (8.3-10.6); Calcium (Corrected) 9.2 mg/dL (8.5-10.1); Carbon Dioxide 29.7 mMol/L (20.0-31.0); Chloride 105 mMol/L (98-107); Creatinine (Component) 1.2 mg/dL (0.6-1.3); Estimated Creatinine Clearance 47.1 mL/min (>60); Globulin 2.3 gm/dL (2.3-3.5); Glucose 145 mg/dL (74-106); Osmolality,Calculated 290 (275-295); Potassium 3.7 mMol/L (3.4-5.1); Procalcitonin 0.13 ng/ml (0.0-0.49); Sodium 143 mMol/L (136-145); Total Protein 6.2 gm/dL (5.7-8.2); Troponin I 0.036 ng/mL (0.0-0.045); eGFR 51 See Note
--- NOTE | 2024-11-01 18:41 | XR_ITS ---
Examination: CT brain head without contrast. 2-D sagittal coronal reconstructions Date and time of exam:November 01, 2024 1911 hrs. Indications: Onset generalized headaches and vomiting today CTDI: vol (mGy):51.1 DLP: (mGycm):1055 Technique: Multiple CT axial sections of the brain have been obtained, 5 mm slice thickness. Contrast has not been administered. 2-D sagittal, coronal reconstructions have been obtained Low dose protocols were performed. One or more of the following dose reduction techniques were used; automated exposure control, adjustment of the mA and/or KV according to patient size, use of iterative reconstruction technique. Findings: No significant ventricular enlargement. Subtle low-density 20 mm in the brainstem, pontine level which may represent an old infarct Intra-axial or extra-axial hemorrhage density is not seen. 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 Fourth ventricle is midline. Cranial vault intact. Impression: Negative for acute hemorrhage, mass effect or midline shift Possible old infarct in the brainstem, pontine level Consider brain MRI follow-up as clinically warranted
[2024-11-01 19:40] LABS: Respiratory Syncytial Virus Ag Negative (Negative)
[2024-11-01] MEDS: MORPHINE SULF INJ 10 MG/ML VIAL 4 MG IVP (20:34)
[2024-11-01] MEDS: ONDANSETRON INJ 2 MG/ML INJ 2 ML 4 MG IV (20:34)
[2024-11-01] MEDS: FAMOTIDINE 20 MG TABLET 40 MG PO (20:57)
[2024-11-01] MEDS: predniSONE 20 MG TABLET 60 MG PO (20:59)
[2024-11-01] MEDS: METOCLOPRAMIDE INJ 5 MG/ML VIAL 2 ML 10 MG IVP (22:21)
== END 2024-11-01 22:26 | disposition home or self-care (01) ==
PROVIDERS: Nurse Practitioner Family; Emergency Provider Emergency Medicine; PCP Family Medicine
DX: J44.1 Chronic obstructive pulmonary disease with (acute) exacerbation (principal); R00.0 Tachycardia, unspecified; H60.90 Unspecified otitis externa, unspecified ear; Z99.81 Dependence on supplemental oxygen
CPT/HCPCS: 36415; 70450; 71045; 80053; 82803; 83605; 83880; 84145; 84484; 85025; 85610; 85730; 86140; 87040; 87400; 87634; 87811; 93005; 94640; 99284; A9270; J1100; J1885; J2270; J2405; J2765; J7512

== ENCOUNTER 2024-11-08 12:40 | Inpatient (IN) | payer MEDICAID, SELFPAY ==
[2024-11-08] VITALS (23 sets, daily range): BP systolic 127–193; BP diastolic 72–118; PULSE 82–120; RESP 13–100; TEMP 36.2–37.2; O2SAT 19–100; BMI 25.6
--- NOTE | 2024-11-08 12:45 | EKG_ITS ---
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
--- NOTE | 2024-11-08 12:45 | XR_ITS ---
Examination: AP chest single view TECHNIQUE: AP sitting portable chest single view Exam date and time: November 08, 2024 1328 hours INDICATIONS: Onset chest pain today. FINDINGS: Normal heart size Lungs are clear. Prominent osteopenia IMPRESSION: No active disease
[2024-11-08] MEDS: ALBUTEROL RT 2.5 MG/0.5 ML NEBU 10 MG INH (12:58)
[2024-11-08] MEDS: IPRATROPIUM RT 0.5 MG/ 2.5 ML NEBU INH (12:58)
[2024-11-08] MEDS: SODIUM CHLORIDE RT SOL 0.9% 3 ML NEBU INH (12:59)
[2024-11-08] MEDS: MethylPREDNISolone SOD SUCC 62.5 MG/ML 2ML VIAL 125 MG IVP (13:16)
[2024-11-08 13:22] LABS: Lactate (Lactic Acid) 1.8 mMol/L (0.4-2.0)
[2024-11-08 13:25] LABS: Basophils % (Auto) 0 % (0-2.5); Eosinophils % (Auto) 0 % (0-10); Hematocrit 34.3 % (36.0-46.0); Hemoglobin 11.3 g/dL (12.0-16.0); Immature Granulocytes % (Auto) 1 % (0-0); Immature Granulocytes Auto 0.18 Thou/mm3 (0.00-0.00); Lymphocytes # (Auto) 0.8 Thou/mm3 (1.0-4.8); Lymphocytes % (Auto) 7 % (10-50); Mean Corpuscular HGB Conc 32.9 g/dl (31.0-37.0); Mean Corpuscular Hemoglobin 27.3 pg (25.0-35.0); Mean Corpuscular Volume 83 fL (80-100); Monocytes # (Auto) 0.5 Thou/mm3 (0.0-0.8); Monocytes % (Auto) 4 % (0-12); Neutrophils # (Auto) 11.2 Thou/mm3 (1.8-7.7); Neutrophils % (Auto) 88 % (37-80); Nucleated Red Blood Cell % 0 /100 WBC (0); Platelet Count 178 Thou/mm3 (140-440); RDW Standard Deviation 40.4 fL (36.4-46.3); Red Blood Count 4.14 Miln/mm3 (4.00-5.20); White Blood Count 12.7 Thou/mm3 (3.6-11.0)
--- NOTE | 2024-11-08 13:28 | PD.EDSOB ---
ED SOB =RME/HPI General Chief Complaint: Shortness of Breath/Dyspnea Stated Complaint: SHORTNESS OF BREATH Time Seen by Provider: 11/08/24 12:45 Arrival date/time: 11/08/24 12:40 RME / HPI RME / HPI Narrative: 64 year old female with history of AFib, COPD, hypertension, diabetes, recurrent hospitalizations for congestive heart failure and COPD exacerbations presents to the ED BIBA for evaluation of shortness of breath today. Per medics report, on scene patient was in respiratory distress, speaking 1-2 word sentences, and saturating 80% on room air. The patient was given two Albuterol breathing treatments (total of 5mg Albuterol) and placed on CPAP with some improvement. Patient reports feeling short of breath for several days that is progressively worsening. Denies any fevers, chills, sweats, chest pain, vomiting, diarrhea, or constipation. Related Data Home Medications ?Medication ?Instructions ?Recorded ?Confirmed methadone 10 mg/5 mL oral solution 100 mg PO QDAY 02/07/24 08/04/24 nitroglycerin 0.4 mg sublingual 0.4 mg buccal Q5MIN PRN Chest Pain 02/07/24 08/04/24 tablet Previous Rx's ?Medication ?Instructions ?Recorded tramadol 50 mg tablet 50 mg PO Q8H PRN pain #20 tabs 04/06/24 albuterol sulfate 90 mcg/actuation 1 puff inhalation QID PRN 08/06/24 aerosol inhaler shortness of breath or wheezing #8.5 grams aspirin 81 mg tablet,delayed 81 mg PO QDAY #30 tabs 08/06/24 release buspirone 5 mg tablet 5 mg PO QDAY #30 tabs 08/06/24 fluticasone fur. 200 mcg-umeclid 1 inh inhalation QDAY #60 ea 08/06/24 62.5 mcg-vilant 25 mcg inhalat.powder (Trelegy Ellipta) furosemide 20 mg tablet (Lasix) 20 mg PO QAM #30 tabs 08/06/24 hydralazine 100 mg tablet 100 mg PO TID #90 tabs 08/06/24 lactulose 10 gram/15 mL oral 10 g (15 mL) PO QDAY PRN 08/06/24 solution constipation #3,785 mL lidocaine 5 % topical patch 1 patch topical QDAY #30 ea 08/06/24 spironolactone 50 mg tablet 50 mg PO QDAY #30 tabs 08/06/24 insulin glargine 100 unit/mL (3 26 unit (0.26 mL) subcut QPM #15 mL 08/07/24 mL) subcutaneous pen (Basaglar KwikPen U-100 Insulin) ciprofloxacin HCl 500 mg tablet 500 mg PO BID #14 tabs 10/23/24 (Cipro) meclizine 50 mg tablet 50 mg PO BID PRN dizziness or 10/27/24 vertigo #10 tabs ondansetron 4 mg disintegrating 4 mg PO Q8H PRN nausea and 10/27/24 tablet vomiting #10 tabs albuterol sulfate 90 mcg/actuation 2 inh inhalation Q6H PRN shortness 11/01/24 breath activated powder of breath or wheezing #1 ea inhaler,sensor (Proair Digihaler) prednisone 50 mg tablet 50 mg PO QDAY #7 tabs 11/01/24 Allergies Allergy/AdvReac Type Severity Reaction Status Date / Time codeine Allergy Severe RASH Verified 11/08/24 12:49 diphenhydramine HCl Allergy Severe Hives Verified 11/08/24 12:49 egg Allergy Severe Rash Verified 11/08/24 12:49 Penicillins Allergy Severe SWELLING, Verified 11/08/24 12:49 RESP DISTRESS pentazocine (From Evaristo) Allergy Severe Hives Verified 11/08/24 12:49 Review of Systems Review of Systems Narrative Review of Systems: GEN: No fever, no chills, no weight loss EYES: No discharge, no visual changes, no pain HEENT: No ear pain, no congestion, no sore throat PULM: +shortness of breath, +cough CV: No chest pain, no dyspnea on exertion, no palpitations GI: No nausea, no vomiting, no diarrhea, no pain, no constipation : No frequency, no urgency, no dysuria MUSC/SKEL: No joint pain, no back pain SKIN: No rash PSYCH: No hallucinations, no depression HEME/LYMPH: No easy bleeding or bruising tendencies NEURO: No weakness, no headache Past Medical History Past Medical History NEUROLOGIC: Positive Neurological Disorders and Cerebrovascular Accident CARDIAC: Positive Cardiac Disorders, Myocardial Infarction, Cardiac Arrhythmia, Atrial Fibrillation, Angina, Hypercholesterolemia, Congestive Heart Failure, Edema and Hypertension RESPIRATORY: Positive Chronic Obstructive Pulmonary Disease (COPD), Asthma, Bronchitis, Emphysema and Pneumonia MUSCULOSKELETAL: Positive Musculoskeletal Disorders and Arthritis ENT: Positive Cataracts and Blind ENDOCRINE: Positive Endocrine Disorders, Diabetes Mellitus Type 1 and Diabetes Mellitus Type 2 HEMATOLOGIC: Positive Anemia PSYCHO/SOCIAL: Positive Recreational Drug Use, Depression and Anxiety OTHER HISTORY: Positive Hospitalization and Shingles Family History FAMILY HISTORY: Positive Family Cardiac Disorders Surgical History SURGICAL: Positive Eye Surgery, Tonsillectomy and Abdominal Surgery Social History SMOKING STATUS: Former smoker SECOND HAND EXPOSURE: No SUBSTANCE USE: former substance user, heroin and methamphetamine (Former drug use, states she quit 20 years ago; tested positive for methamphetamine 03/31/2023.) ED Exam Narrative Physical exam: GENERAL APPEARANCE: alert and oriented x 4, well-developed, well-nourished HEENT: Normocephalic, atraumatic; pupils equal, round, reactive to light; EOMI; mucous membranes pink, moist; oropharynx clear NECK: Supple LUNGS: Decreased air movement, mild wheezing, prolonged expiratory phase, no rales, no rhonchi HEART: Regular rate, regular rhythm; normal S1, S2; no murmurs ABDOMEN: non distended; normal BS; soft, no tenderness, no guarding, no rebound; no masses, no organomegaly, no hernia BACK: no CVA tenderness EXTREMITIES: atraumatic; no edema NEUROLOGIC: awake; alert and oriented x4; cranial nerves II-XII grossly intact; no focal sensory or motor deficits PSYCHIATRIC: appropriate mood and affect SKIN: warm, dry, normal color; no rashes Course Course Course Narrative: chest xray ordered to help determine etiology of shortness of breath. 1540: On reassessment, the patient is still wheezing. Will order second breathing treatment. 1800: Patient signed out to Dr. Robles pending reassessment. Quality Measures none Orders Category Date Time Status COVID-19 Screening Questionnaire NOW Care 11/08/24 18:11 Active Residential Sales Representative NOW Care 11/08/24 12:45 Active Decision to Admit X1 Care 11/08/24 18:11 Active EKG (ED ONLY) *Do not use* NOW Care 11/08/24 12:45 Completed EKG (ED Only) Stat Exams 11/08/24 12:45 Draft XR chest 1V portable Stat Exams 11/08/24 12:45 Completed ABG [Arterial Blood Gas] Stat Lab 11/08/24 17:40 Ordered B-Type Natriuretic Peptide Stat Lab 11/08/24 13:13 Completed Blood Culture (Lab) Stat Lab 11/08/24 13:51 Received CBC Stat Lab 11/08/24 13:13 Completed Comprehensive Metabolic Panel Stat Lab 11/08/24 13:13 Completed Lactate (Lactic Acid) Stat Lab 11/08/24 13:13 Completed Lipase Stat Lab 11/08/24 13:13 Completed Magnesium Stat Lab 11/08/24 13:13 Completed Partial Thromboplastin Time Stat Lab 11/08/24 13:13 Completed Procalcitonin Stat Lab 11/08/24 13:13 Completed Prothrombin Time with INR Stat Lab 11/08/24 13:13 Completed Troponin I Stat Lab 11/08/24 13:13 Completed Urinalysis Stat Lab 11/08/24 14:09 Completed Urine Culture Stat Lab 11/08/24 14:09 Received ALBUTEROL RT 0.5ml [Proventil Rt 0.5ml] Med 11/08/24 12:45 Discontinued 10 mg INH X1 ONE Albuterol/Ipratr Rt Blanca [Duoneb Rt Blanca] Med 11/08/24 16:09 Discontinued 3 ml INH X1 ONE Azithromycin Inj [Zithromax Inj] 500 mg Med 11/08/24 17:36 Active Sodium Chloride 0.9% 250 ml [Ns] 250 ml IV X1 Ipratropium Armona Rt Blanca [Atrovent Rt Blanca] Med 11/08/24 12:45 Discontinued 0.5 mg INH X1 ONE LORazepam [Ativan Inj] Med 11/08/24 18:12 Discontinued 1 mg IVP X1 ONE Methadone Med 11/08/24 18:06 Discontinued 100 mg PO X1 ONE MethylPREDNISolone.* [SoluMEDROL Inj] Med 11/08/24 12:45 Discontinued 125 mg IVP X1 ONE Sodium Chloride Rt Blanca 0.9% [NS Rt Blanca 0.9%] Med 11/08/24 12:45 Active 3 ml INH PRN PRN Sodium Chloride Rt Blanca 0.9% [NS Rt Blanca 0.9%] Med 11/08/24 12:45 Active 3 ml INH PRN PRN BiPAP / CPAP NOW RT 11/08/24 12:49 Active Vital Signs Vital signs: Vital Signs Pulse Rate 105 H 11/08/24 12:58 Shortness of Breath / Dyspnea MDM Narrative MDM Narrative:: Anju Fuller am scribing for and in the presence of Dr. Pond. Patient data External records reviewed:: [facility] previous records (I reviewed ED visit on 11/01/2024 ) and EMS form Clinical information provided by:: patient and EMS Social determinants that could affect healthcare access:: substance use Patient has the following chronic illnesses:: AFib, COPD, hypertension, diabetes, recurrent hospitalizations for congestive heart failure and COPD exacerbations How is presenting disease/condition affected by chronic disease/condition?: exacerbated by Evaluation data The following diagnostics were reviewed and interpreted by me:: lab results, radiology exam(s) and EKG tracing(s) (Sinsu tachycardia, rate 104, no STEMI ) Lab and/or radiology exams considered but not ordered:: None Interpretation Summary: Ordering Physician: Socorro Pond MD Date of Service: 11/08/24 Procedure(s): XR chest 1V portable Accession Number(s): [id number] cc: Acosta Kumari MD; Socorro Pond MD~ Examination: AP chest single view TECHNIQUE: AP sitting portable chest single view Exam date and time: November 08, 2024 1328 hours INDICATIONS: Onset chest pain today. FINDINGS: Normal heart size Lungs are clear. Prominent osteopenia IMPRESSION: No active disease Dictated By: Acosta Kumari MD Signed By: <Electronically signed by Acosta Kumari MD in OV> 11/08/24 1408 Medications / Prescriptions Medications or Prescriptions considered but not ordered:: None Medication administrations:: Medication Administration History Azithromycin 500 mg/ Sodium (Chloride) 250 mls @ 250 mls/hr IV X1 ONE Stop: 11/08/24 18:35 Last Admin: 11/08/24 17:51 Dose: 250 mls/hr Documented By: GM Sodium Chloride (Sodium Chloride Rt Blanca 0.9% 3 Ml Nebu) 3 ml INH PRN PRN PRN Reason: SOLN Stop: 12/08/24 12:44 Last Admin: 11/08/24 12:59 Dose: 3 ml Documented By: MR Sodium Chloride (Sodium Chloride Rt Blanca 0.9% 3 Ml Nebu) 3 ml INH PRN PRN PRN Reason: SOLN Stop: 12/08/24 12:44 Discontinued Medications Albuterol (Albuterol Rt 2.5 Mg/0.5 Ml Nebu) 10 mg INH X1 ONE Stop: 11/08/24 12:46 Last Admin: 11/08/24 12:58 Dose: 10 mg Documented By: Albuterol/Ipratropium (Albuterol/Ipratropium (Duoneb) Rt Blanca 3 Ml Nebu) 3 ml INH X1 ONE Stop: 11/08/24 16:10 Last Admin: 11/08/24 16:44 Dose: 3 ml Documented By: Ipratropium Armona (Ipratropium Rt 0.5 Mg/ 2.5 Ml Nebu) 0.5 mg INH X1 ONE Stop: 11/08/24 12:46 Last Admin: 11/08/24 12:58 Dose: 0.5 mg Documented By: Lorazepam (Lorazepam 2 Mg/Ml Vial) 1 mg IVP X1 ONE Stop: 11/08/24 18:13 Methadone HCl (Methadone Hcl 10 Mg Tablet) 100 mg PO X1 ONE Stop: 11/08/24 18:07 Methylprednisolone Sodium Succinate (Methylprednisolone Sod Succ 62.5 Mg/Ml 2ml Vial) 125 mg IVP X1 ONE Stop: 11/08/24 12:46 Last Admin: 11/08/24 13:16 Dose: 125 mg Documented By: MC See above Consultations Consultation(s) initiated? (list below): No Diagnosis Shortness of Breath Differential Diagnosis: acute exacerbation of chronic obstructive airways disease, congestive heart failure, community acquired pneumonia and asthma with exacerbation Most likely diagnosis given after review of the tests above:: COPD exacerbation Admission Indicated Admission indicated?: not indicated Explain why admission is indicated or not indicated:: 1800: Patient signed out to Dr. Robles pending reassessment. Admission Request Was there a request for admission?: No Disposition Plan Disposition Plan: other (specify) (Signed out to Dr. Robles ) Discharge Plan Plan Patient Disposition: Admit Acute Care w/in Hospital Prescriptions/Referrals Prescriptions/Med Rec: No Action tramadol 50 mg tablet 50 mg PO Q8H PRN (Reason: pain) Qty: 20 0RF hydralazine 100 mg tablet 100 mg PO TID Qty: 90 0RF albuterol sulfate 90 mcg/actuation HFA aerosol inhaler 1 puff inhalation QID PRN (Reason: shortness of breath or wheezing) Qty: 8.5 0RF aspirin 81 mg tablet,delayed release (DR/EC) 81 mg PO QDAY Qty: 30 0RF buspirone 5 mg tablet 5 mg PO QDAY Qty: 30 0RF furosemide [Lasix] 20 mg tablet 20 mg PO QAM Qty: 30 0RF lactulose 10 gram/15 mL solution 10 g PO QDAY PRN (Reason: constipation) Qty: 3785 0RF lidocaine 5 % adhesive patch,medicated 1 patch topical QDAY Qty: 30 0RF Rx Instructions: leave on most painful area for up to 12 hrs spironolactone 50 mg tablet 50 mg PO QDAY Qty: 30 0RF Trelegy Ellipta 200-62.5-25 mcg blister with device 1 inh inhalation QDAY Qty: 60 0RF insulin glargine [Basaglar KwikPen U-100 Insulin] 100 unit/mL (3 mL) insulin pen 26 unit subcut QPM Qty: 15 0RF ciprofloxacin HCl [Cipro] 500 mg tablet 500 mg PO BID Qty: 14 0RF methadone 10 mg/5 mL Solution 100 mg PO QDAY nitroglycerin 0.4 mg Tablet, Sublingual 0.4 mg BUCCAL Q5MIN PRN (Reason: Chest Pain) ondansetron 4 mg tablet,disintegrating 4 mg PO Q8H PRN (Reason: nausea and vomiting) Qty: 10 0RF meclizine 50 mg tablet 50 mg PO BID PRN (Reason: dizziness or vertigo) Qty: 10 0RF Proair Digihaler 90 mcg/actuation aero powdr breath act w/sensor 2 inh inhalation Q6H PRN (Reason: shortness of breath or wheezing) Qty: 1 0RF prednisone 50 mg tablet 50 mg PO QDAY Qty: 7 0RF Referrals: Apolinar Tai MD [Primary Care Provider] - In 1 week Problem List Clinical Impression: Acute respiratory failure with hypoxia, COPD exacerbation Patient/Caregiver Discharge Instructions Print Language: Mohawk Stand Alone Forms: Kaylynn Award Info., Patient Portal Info Letter
[2024-11-08 13:37] LABS: Partial Thromboplastin Time 21.4 Seconds (22.0-36.0); Prothrombin Time 10.5 Seconds (9.0-12.2)
[2024-11-08 13:49] LABS: Alanine Aminotransferase 16 U/L (10-49); Albumin, Serum 3.8 gm/dL (3.4-4.8); Albumin/Globulin Ratio 1.7 (1.2-2.2); Alkaline Phosphatase 53 U/L (46-116); Anion Gap 6 (7-16); Aspartate Amino Transferase 19 U/L (0-34); BUN/Creatinine Ratio 25 Ratio (12-20); Bilirubin,Total 0.4 mg/dL (0.3-1.2); Blood Urea Nitrogen 28 mg/dL (9-23); Calcium 9.1 mg/dL (8.3-10.6); Calcium (Corrected) 9.3 mg/dL (8.5-10.1); Carbon Dioxide 27.6 mMol/L (20.0-31.0); Chloride 109 mMol/L (98-107); Creatinine (Component) 1.1 mg/dL (0.6-1.3); Estimated Creatinine Clearance 51.4 mL/min (>60); Globulin 2.3 gm/dL (2.3-3.5); Glucose 207 mg/dL (74-106); Lipase 35 U/L (12-53); Osmolality,Calculated 296 (275-295); Potassium 4.1 mMol/L (3.4-5.1); Procalcitonin 0.11 ng/ml (0.0-0.49); Sodium 143 mMol/L (136-145); Total Protein 6.1 gm/dL (5.7-8.2); Troponin I 0.022 ng/mL (0.0-0.045); eGFR 56 See Note
[2024-11-08 13:59] LABS: B-Type Natriuretic Peptide 158 pg/mL (0-100)
[2024-11-08 14:31] LABS: Collection Type, Urine Clean Catch
[2024-11-08 14:50] LABS: Bilirubin,Urine Negative (Negative); Blood,Urine 2+ (Negative); Clarity,Urine Clear (Clear/Hazy); Color,Urine Lt-Yellow (Lt Yel-Yel); Glucose, Urine 3+ (Negative); Hyaline Casts,Urine < 1 /hpf (0-1); Ketones,Urine Negative (Negative); Leukocyte Esterase,Urine Negative (Negative); Nitrite,Urine Negative (Negative); PH,Urine 6.5 (5.0-7.0); Protein,Urine 3+ (Neg - Trace); RBC,Urine 151 /hpf (0-3); Specific Gravity,Urine 1.018 (1.001-1.035); Squamous Epithelial Cell,Urine 1 /hpf (0-5); Urobilinogen,Urine Negative mg/dL (0.0-1.0); WBC,Urine 3 /hpf (0-5)
[2024-11-08] MEDS: ALBUTEROL/IPRATROPIUM (Duoneb) RT SOL 3 ML NEBU INH ×3 (16:44→23:34)
[2024-11-08] MEDS: AZITHROMYCIN INJ 500 MG in SODIUM CHLORIDE 0.9% 250 ML 250 ML 250 MG IV (17:51)
--- NOTE | 2024-11-08 18:01 | PD.EDADDENDU ---
Emergency Room Addendum <Modesta Tai - Last Filed: 11/08/24 18:11> Addendum Narrative: I took over the care from Dr. Pond at 6 PM on 11/08/2024, see her notes for complete H&P and ED course. I reviewed all diagnostic test results. At this point, diagnoses include Treatment here included No significant improvement. I discussed the case with our hospitalist. About the presentation and exam and diagnostics and treatments here. And need of further care in the hospital. Will accept the patient. <Augie Robles MD - Last Filed: 11/08/24 19:24> Addendum Narrative: I took over the care from Dr. Pond at 6 PM on 11/08/2024, see her notes for complete H&P and ED course. I reviewed all diagnostic test results. At this point, diagnoses include acute respiratory failure with hypoxia and COPD exacerbation. No significant improvement noted. I discussed the case with our hospitalist. About the presentation and exam and diagnostics and treatments here. And need of further care in the hospital. Will accept the patient. Augie Robles MD
[2024-11-08 18:26] LABS: Base Excess 3 (-3-3); HCO3 28 mEq/L (20-26); Inspired Oxygen, FIO2 21 %; O2 Saturation 87 % (91-98); PCO2 42 mmHg (32.0-48.0); pH, Arterial 7.43 (7.35-7.45)
[2024-11-08 18:28] LABS: Allen Test Performed/OK; Puncture Site Left Radial
[2024-11-08 18:30] LABS: PO2 49 mmHg (83-108)
[2024-11-08] MEDS: LORazepam 2 MG/ML VIAL 1 MG IVP (18:33)
--- NOTE | 2024-11-08 19:04 | ESHP_ITS ---
Documentation for date of: 11/08/24 [facility] History of Present Illness History of present illness: This is a 64 year old female with PMHx of COPD on 2 L home oxygen, recurrent COPD exacerbation, A-fib, HTN, T2DM, Hx of PE, Takotsubo cardiomyopathy, and substance abuse disorder presenting to the ED with shortness of breath. History is limited as patient was on BiPAP. She states symptoms started about a week ago and have been worsening over the last week. She using her home oxygen and inhaler without relief of symptoms. Symptoms associated with dry cough. Denies headaches, fevers, chest pain, productive cough, abdominal pain, N/V/D/C, dysuria or urinary frequency/urgency. ED COURSE: On admission she was desatting in the 80s on room air. Continued on BiPAP with improved oxygenation. Afebrile, HR 105, BP 193/92, satting 98% on 35% BiPAP. WBC 12.7, Hgb 11.3 around baseline. Normal coag studies. ABG showed pH 7.43, pCO2 42, O2 49%, bicarb 28. Chemistry remarkable for GLUCOSE of 207, BNP 158. Troponin negative. EKG sinus tachycardia without acute ST changes. CXR showed no active disease. PMHx: COPD, A-fib, HTN, T2DM, Hx of PE, Takotsubo cardiomyopathy, substance use disorder PSHx: Partial oophorectomy MEDS: Pending med rec ALLERGIES: CODEINE, DIPHENHYDRAMINE, eggs, PREDNISONE, PENTAZOCINE FHx: Not obtained SH: 30 pack years smoking history, opioid abuse on methadone, denies alcohol/other drug use. Exam Vital Signs Temp Pulse Resp BP Pulse Ox O2 Del Method O2 Flow Rate 98.4 F 97 18 169/94 H 93 L BiPAP 8 11/08/24 18:04 11/08/24 18:10 11/08/24 18:10 11/08/24 18:04 11/08/24 18:10 11/08/24 18:04 11/08/24 13:09 FiO2 35 11/08/24 16:45 Narrative Exam GENERAL * Lethargic, drowsy, on BiPAP, disheveled adult female. HEENT * NCAT.?KASANDRA. Oral mucosa is moist. Patent Nares NECK * Supple, nontender, no thyromegaly, no meningismus, no JVD, no step offs CHEST * Tachycardic, regular rhythm, no m/g/r * CTAB, no w/r/r. Symmetrical chest rise. No intercostal subcostal retraction * Atraumatic, nontender, no crepitus, symmetrical expansion. ABDOMEN * Soft, flat, nontender. No guarding/rebound tenderness/masses. * Bowel sounds presents EXTREMITIES * Nontender, no cyanosis, no edema * 1+ bilateral lower extremity pitting edema. SKIN * Warm and dry, no jaundice/rashes. NEUROMUSCULAR * No lumbar or midline, no CVA, no paraspinal muscle spasm or tenderness. * Moves all 4 extremities well, with full ROM and good CSM. * VICTORIA x4, CN II-XII grossly intact. * No focal neurologic deficits. PSYCHIATRY * Normal mood and affect, cooperative, no SI or HI or hallucinations. Results: Labs 11/08/24 13:13 11/08/24 13:13 Labs: Short CBC 11/08/24 Range/Units 13:13 WBC 12.7 H D (3.6-11.0) Thou/mm3 Hgb 11.3 L (12.0-16.0) g/dL Hct 34.3 L (36.0-46.0) % Plt Count 178 (140-440) Thou/mm3 BMP 11/08/24 13:13 Sodium 143 Potassium 4.1 Chloride 109 H Carbon Dioxide 27.6 BUN 28 H Creatinine 1.1 Glucose 207 H Calcium 9.1 Cardiac Enzymes 11/08/24 Range/Units 13:13 Troponin I 0.022 (0.0-0.045) ng/mL Liver Function 11/08/24 Range/Units 13:13 Total Bilirubin 0.4 (0.3-1.2) mg/dL AST 19 (0-34) U/L ALT 16 (10-49) U/L Alkaline Phosphatase 53 (46-116) U/L Albumin 3.8 (3.4-4.8) gm/dL Urine 11/08/24 Range/Units 14:09 Urine Color Lt-Yellow (Lt Yel-Yel) Urine Clarity Clear (Clear/Hazy) Urine pH 6.5 (5.0-7.0) Ur Specific Garrett 1.018 (1.001-1.035) Urine Protein 3+ A (Neg - Trace) Urine Glucose (UA) 3+ A (Negative) ABG Interpretation ABG results: 11/08/24 18:20 ABG pH 7.43 ABG pCO2 42 ABG pO2 49 L* ABG HCO3 28 H ABG O2 Saturation 87 L ABG Base Excess 3 Quality Measures Quality Measures none Medications Home Medications and Allergies Home Medications ?Medication ?Instructions ?Recorded ?Confirmed ?Type methadone 10 mg/5 mL oral solution 100 mg PO QDAY 01/2408/04/24 History nitroglycerin 0.4 mg sublingual 0.4 mg buccal Q5MIN VA N Chest Pain 02/07/24 08/04/24 History tablet Allergies Allergy/AdvReac Type Severity Reaction Status Date / Time codeine Allergy Severe RASH Verified 11/08/24 12:49 diphenhydramine HCl Allergy Severe Hives Verified 11/08/24 12:49 egg Allergy Severe Rash Verified 11/08/24 12:49 Penicillins Allergy Severe SWELLING, Verified 11/08/24 12:49 RESP DISTRESS pentazocine (From Evaristo) Allergy Severe Hives Verified 11/08/24 12:49 Visit Medications Acetaminophen (Acetaminophen 325 Mg Tablet) 650 mg PO Q6H PRN PRN Reason: Fever >101.5 Stop: 12/08/24 18:35 Acetaminophen (Acetaminophen 325 Mg Tablet) 650 mg PO Q6H PRN PRN Reason: PAIN SCALE 1-3 (mild Stop: 12/08/24 18:35 Albuterol/Ipratropium (Albuterol/Ipratropium (Duoneb) Rt Blanca 3 Ml Nebu) 3 ml INH Q4HRRT [facility] Stop: 12/08/24 18:59 Heparin Sodium (Porcine) (Heparin Sod Inj 5000 Unit/Ml Vial) 5,000 unit SC BID KIP Stop: 11/22/24 20:59 Azithromycin 250 mg/ Sodium (Chloride) 250 mls @ 250 mls/hr IV QDAY KIP Stop: 11/15/24 18:37 Methylprednisolone Sodium Succinate (Methylprednisolone Sod Succ 40 Mg Vial) 40 mg IVP QDAY KIP Stop: 11/13/24 08:59 Ondansetron HCl (Ondansetron Inj 2 Mg/Ml Inj 2 Ml) 4 mg IV Q6H PRN; Protocol PRN Reason: NAUSEA OR VOMITING Stop: 12/08/24 18:35 Pantoprazole Sodium (Pantoprazole 40 Mg Tablet) 40 mg PO QDAY KIP Stop: 12/09/24 08:59 Sodium Chloride (Sodium Chloride Rt Blanca 0.9% 3 Ml Nebu) 3 ml INH PRN PRN PRN Reason: SOLN Stop: 12/08/24 12:44 Last Admin: 11/08/24 12:59 Dose: 3 ml Sodium Chloride (Sodium Chloride Rt Blanca 0.9% 3 Ml Nebu) 3 ml INH PRN PRN PRN Reason: SOLN Stop: 12/08/24 12:44 Discontinued Medications Albuterol (Albuterol Rt 2.5 Mg/0.5 Ml Nebu) 10 mg INH X1 ONE Stop: 11/08/24 12:46 Last Admin: 11/08/24 12:58 Dose: 10 mg Albuterol/Ipratropium (Albuterol/Ipratropium (Duoneb) Rt Blanca 3 Ml Nebu) 3 ml INH X1 ONE Stop: 11/08/24 16:10 Last Admin: 11/08/24 16:44 Dose: 3 ml Azithromycin 500 mg/ Sodium (Chloride) 250 mls @ 250 mls/hr IV X1 ONE Stop: 11/08/24 18:35 Last Admin: 11/08/24 17:51 Dose: 250 mls/hr Ipratropium [place] (Ipratropium Rt 0.5 Mg/ 2.5 Ml Nebu) 0.5 mg INH X1 ONE Stop: 11/08/24 12:46 Last Admin: 11/08/24 12:58 Dose: 0.5 mg Lorazepam (Lorazepam 2 Mg/Ml Vial) 1 mg IVP X1 ONE Stop: 11/08/24 18:13 Last Admin: 11/08/24 18:33 Dose: 1 mg Methadone HCl (Methadone Hcl 10 Mg Tablet) 100 mg PO X1 ONE Stop: 11/08/24 18:07 Last Admin: 11/08/24 19:04 Dose: Not Given Methylprednisolone Sodium Succinate (Methylprednisolone Sod Succ 62.5 Mg/Ml 2ml Vial) 125 mg IVP X1 ONE Stop: 11/08/24 12:46 Last Admin: 11/08/24 13:16 Dose: 125 mg Assessment & Plan Plan Summary: 64 year old female with PMHx of COPD on 2 L home oxygen, recurrent COPD exacerbation, A-fib, HTN, T2DM, Hx of PE, Takotsubo cardiomyopathy, and substance abuse disorder presenting with worsening SOB. Admitted for COPD exacerbation. Continued on BiPAP. Acute on chronic hypoxemic respiratory failure COPD exacerbation and/or CHF exacerbation Presenting with 7 days of worsening SOB despite using home inhaler. Hx of COPD with recurrent exacerbation, on 2 L home oxygen. On presentation she was wheezing, desatting in the 80s on room air. Lung sounds clear on exam, no crackles, no wheezing after initiating treatment. CXR showed no active pulmonary disease including pneumonia. ABG showed pH 7.43, pCO2 42, O2 49%, bicarb 28. Presentation more consistent with exacerbation of COPD or CHF; given wheezing, no JVD, no pulmonary edema on CXR. Last ECHO from 01/2024 showed EF 65-70. However, BNP slightly elevated and she does have trace to 1+ pitting bilateral LE edema. Also, she appears to be on FUROSEMIDE and SPIRONOLACTONE chronically, but med rec pending. Anticipate improvement with STEROIDS if COPD exacerbation. Will hold on diuresis and echocardiogram until med rec is done. I didn't feel like she had pulmonary edema on exam or CXR. ? Continue BiPAP, wean off when able to ? Continue DuoNebs q.4h. ? Continue SOLU-MEDROL 40 mg QDAY ? Continue AZITHROMYCIN (11/08 to present) ? Continue LASIX 40 mg daily (home dose 20 mg daily) ? Strict JORGE's ? Physical therapy ? Oxygen PRN, wean off when able to ? Consider echocardiogram Leukocytosis Likely reactive in settings of COPD exacerbation. No signs of infection, CXR no pneumonia, afebrile. WBC may fluctuate in settings of STEROIDS. ? Continue monitoring ? Pending blood and urine culture A-fib, rate controlled Likely paroxysmal. Tachycardic but normal rhythm on exam. EKG shows sinus tachycardia. [id number] 4 points, HAS-BLED 1, anticoagulation benefit > risk. ? Consider starting ELIQUIS. HTN urgency Tachycardia Likely reactive versus volume overload. Presenting with BP 193/92, HR 105 then 86 on repeat. Denies chest pain or palpitations. No signs of endorgan damage. Denies chest pain. Troponin normal. EKG without acute ST changes. From DC summary last month, she is on HYDRALAZINE 100 mg TID. Pending med rec ? Started AMLODIPINE 10 mg daily ? Consider home starting HYDRALAZINE if HR allows. T2DM GLUCOSE 207. A1c 6.4 from last month. ? INSULIN sliding scale ? Accu-Cheks Substance abuse disorder ? Continue home Methadone 100mg PO daily Hx of PE Low suspicion for active PE. Tachycardia improved since admission. SOB most likely due to above reasons. D-dimer may have utility here prior to getting CTA. ? Pending D-dimer ? Consider CTA chest or venous Doppler if suspected PE/DVT Hx of Takotsubo cardiomyopathy No signs or symptoms of acute exacerbation. ? Continue monitoring Health maintenance Diet: NPO GI prophylaxis: PROTONIX DVT prophylaxis: HEPARIN subcu Antibiotics: AZITHROMYCIN CODE STATUS: Full code Disposition: [facility] Patient case was discussed with attending, Aayush Krishnamurthy MD. Tyrone Martell DO PGYI Attending Provider Attestation/Addendum 64-year-old female with acute on chronic respiratory failure, home oxygen, COPD, history of substance use, diabetes and hypertension, cardiomyopathy was admitted for shortness of breath. The patient is currently on BiPAP. Chest x-ray showed no consolidation, prolactin is 0.11, BNP mildly elevated. The patient received IV steroid and empiric antibiotic in the ER.
--- NOTE | 2024-11-08 22:40 | PC.NURSE ---
Telephone report received from ISAAC Gomez in ED.
--- NOTE | 2024-11-08 22:46 | PC.NURSE ---
Pt has been sleeping since my arival 1900. Arouses easily.
[2024-11-09] VITALS (18 sets, daily range): BP systolic 141–192; BP diastolic 78–101; PULSE 79–107; RESP 15–21; TEMP 36.2–37.2; O2SAT 92–100; BMI 25.9
--- NOTE | 2024-11-09 01:21 | PC.NURSE ---
Contacted Dr. Jodi HARRIS due to reciving a phone call from lab regarding checking the patient D-dimer lab. Received confirmation from Dr. Zapata that it is okay to draw the D-Dimer with the patient's morning labs.
--- NOTE | 2024-11-09 01:23 | PC.NURSE ---
Covering for patient's primary nurse.
[2024-11-09] MEDS: ALBUTEROL/IPRATROPIUM (Duoneb) RT SOL 3 ML NEBU INH ×6 (03:01→22:43)
--- NOTE | 2024-11-09 03:51 | PC.NURSE ---
RN notified Dr. Paul of blood pressure of 179/89. Dr. Paul was notified by Dr. Martell to monitor for now. Dr. Paul asked if the patient is having any headaches. RN told hospitalist patient is in bed resting.
--- NOTE | 2024-11-09 05:28 | XR_ITS ---
Examination: CT abdomen with intravenous contrast CT pelvis with intravenous contrast 2-D coronal reconstructions 2-D sagittal reconstructions Date and time of exam:November 10, 2024 1633 hrs. Indications: Abdominal pain today, diagnosis incarcerated hernia. CTDI: vol (mGy) 11.91 DLP: (mGycm) 650 Technique: Multiple axial sections of the abdomen and pelvis have been obtained. 64 slice high-resolution scanner used. 3 mm axial sections have been obtained, post intravenous injection 60 cc [id number] 2-D sagittal, coronal reconstructions obtained. Low dose protocols were performed. One or more of the following dose reduction techniques were used; automated exposure control, adjustment of the mA and/or KV according to patient size, use of iterative reconstruction technique. Findings: Lower wall of the esophagus is thickened Liver is irregular in contour Contracted gallbladder suspicious for gallstones Spleen is not enlarged No pancreatic mass Subcentimeter periaortic lymph nodes No hydronephrosis Heavy abdominal aortic calcification Moderate stool in the colon Posterior left pelvic cyst 5.9 cm Intact urinary bladder No umbilical or femoral hernia Advanced disc narrowing L4-L5 Impression: Cholelithiasis Subcentimeter periaortic lymph nodes, recommend 6 month follow-up CT abdomen pelvis with contrast Moderate stool throughout the colon no obstruction Posterior left pelvic cyst, recommend pelvic sonography follow-up
[2024-11-09 05:53] LABS: Basophils % (Auto) 0 % (0-2.5); Eosinophils % (Auto) 0 % (0-10); Hematocrit 30.7 % (36.0-46.0); Immature Granulocytes % (Auto) 2 % (0-0); Immature Granulocytes Auto 0.15 Thou/mm3 (0.00-0.00); Lymphocytes # (Auto) 1.1 Thou/mm3 (1.0-4.8); Lymphocytes % (Auto) 11 % (10-50); Mean Corpuscular HGB Conc 32.6 g/dl (31.0-37.0); Mean Corpuscular Hemoglobin 26.9 pg (25.0-35.0); Mean Corpuscular Volume 83 fL (80-100); Monocytes # (Auto) 0.5 Thou/mm3 (0.0-0.8); Monocytes % (Auto) 5 % (0-12); Neutrophils # (Auto) 8.4 Thou/mm3 (1.8-7.7); Neutrophils % (Auto) 82 % (37-80); Nucleated Red Blood Cell % 0 /100 WBC (0); Platelet Count 163 Thou/mm3 (140-440); RDW Standard Deviation 40.2 fL (36.4-46.3); Red Blood Count 3.72 Miln/mm3 (4.00-5.20); White Blood Count 10.2 Thou/mm3 (3.6-11.0)
[2024-11-09 06:33] LABS: Alanine Aminotransferase 12 U/L (10-49); Albumin, Serum 3.4 gm/dL (3.4-4.8); Albumin/Globulin Ratio 1.5 (1.2-2.2); Alkaline Phosphatase 44 U/L (46-116); Anion Gap 8 (7-16); Aspartate Amino Transferase 15 U/L (0-34); BUN/Creatinine Ratio 27 Ratio (12-20); Bilirubin,Total 0.4 mg/dL (0.3-1.2); Blood Urea Nitrogen 32 mg/dL (9-23); Calcium 9.2 mg/dL (8.3-10.6); Calcium (Corrected) 9.7 mg/dL (8.5-10.1); Carbon Dioxide 24.9 mMol/L (20.0-31.0); Chloride 108 mMol/L (98-107); Creatinine (Component) 1.2 mg/dL (0.6-1.3); Estimated Creatinine Clearance 47.4 mL/min (>60); Globulin 2.2 gm/dL (2.3-3.5); Glucose 302 mg/dL (74-106); Magnesium 2.3 mg/dL (1.6-2.6); Osmolality,Calculated 299 (275-295); Potassium 4.5 mMol/L (3.4-5.1); Sodium 141 mMol/L (136-145); Total Protein 5.6 gm/dL (5.7-8.2); eGFR 51 See Note
[2024-11-09 08:02] LABS: D-Dimer 706 ng/mL (<600)
[2024-11-09] MEDS: amLODIPine BESYLATE 5 MG TABLET 10 MG PO (08:03)
[2024-11-09] MEDS: PANTOPRAZOLE 40 MG TABLET PO (08:05)
[2024-11-09] MEDS: hydrALAZINE INJ 20 MG/ML VIAL 10 MG IV (08:06)
[2024-11-09] MEDS: HEPARIN SOD INJ 5000 UNIT/ML VIAL SC ×2 (08:06→21:02)
[2024-11-09] MEDS: INSULIN LISPRO (AdmeLOG) 1 UNIT/0.01 ML UNIT SC ×3 (08:06→20:59)
[2024-11-09 08:23] LABS: Sed Rate (ESR) 12 mm/hr (0-30)
--- NOTE | 2024-11-09 09:12 | PC.SS ---
Christina Diaz is 64 year old female. SS met with patient at bedside to complete initial assessment and to discuss discharge planning. Patient appeared to be alert and oriented. Patient confirmed demographic information she lives with a friend. Patient reports her son, Patria Diaz is her surrogate decision maker [phone] . Pt states prior to hospitalization she is able to complete all ADL?s independently, does has rollator walker as well as a wheelchair to assist with ambulation; pt has O2 and not sure provider as they are based out of [place]. Pt confirmed she has portable O2 at home. Pts PCP is Dr. Apolinar Tai. Pharmacy of choice is [facility]. Patient reports she has advance directive in place. Patient will return home. Friends will provide transportation upon DC. DC Plan: Home Next of Kin: SonPatria [phone] PCP: Dr. Apolinar Tai
[2024-11-09] MEDS: METHADONE HCL 10 MG TABLET 100 MG PO (09:21)
[2024-11-09 10:10] LABS: Base Excess, Venous 4 (-3-3); O2 Saturation, Venous 95 % (96-97); PCO2, Venous 34 mmHg (36-56); PO2, Venous 61 mmHg (15-58); pH, Venous 7.51 (7.33-7.66)
[2024-11-09] MEDS: AZITHROMYCIN INJ 250 MG in SODIUM CHLORIDE 0.9% 250 ML 250 ML IV (14:33)
--- NOTE | 2024-11-09 15:05 | ESPR_ITS ---
<Statement entered by Claudia Suárez MD - 11/09/24 17:12> I discussed with and supervised my co-resident involved in the care of this patient. I agree with the assessment and plan as documented above. Patient taken off BIPAP, now back to baseline O2 requirements saturating at 97% on 2L at bedside. Remains hypertensive, will restart home meds. Continuing azithromycin, rocephin, and steroids for her COPD exacerbation. Claudia Suárez MD PGY-3 Documentation for date of: 11/09/24 Subjective Subjective Interval history: Patient seen and examined at bedside. She is on BiPAP, responsive, and follows commands. She was hypertensive this morning 190/100. Gave amoldipine 10 mg daily and IV hydralazine 10mg x1. BP then improved. Saturating at 94%O2 while on BiPAP. Will titrate off BiPAP. Resumed home methadone dose 100 mg daily. Leukocytosis improved to 10.2. Hb 10. Continue steroids, duo neb, azithromycin for COPD exacerbation. Exam Vital Signs Temp Pulse Resp BP Pulse Ox O2 Del Method O2 Flow Rate 97.8 F 90 18 141/78 H 99 BiPAP 8 11/09/24 12:00 11/09/24 14:43 11/09/24 14:43 11/09/24 12:00 11/09/24 14:43 11/09/24 12:00 11/08/24 13:09 FiO2 21 11/09/24 14:43 Narrative Exam General: elderly lady, No acute distress, cooperative HEENT: NCAT, No JVD noted. Pupils are equal and reactive to light bilaterally Cardiovascular: Normal S1 and S2. Regular rate and rhythm. Respiratory: expiratory wheezing , on BiPAP Abdomen: Soft, nontender, not distended, normal bowel sounds. Skin: Warm to touch, dry, no rashes noted Musculoskeletal: No gross injuries. Able to move all 4 extremities. No pitting edema Neuro: Alert and oriented x3. No focal neuro deficits. Psych: Normal affect and mood Objective Labs 11/10/24 05:13 11/10/24 05:13 Labs: Laboratory Results - last 24 hr 11/08/24 11/09/24 11/09/24 18:20 04:50 09:55 WBC 10.2 RBC 3.72 L Hgb 10.0 L Hct 30.7 L MCV 83 MCH 26.9 MCHC 32.6 RDW Std Deviation 40.2 Plt Count 163 Neut % (Auto) 82 H Lymph % (Auto) 11 Eddy % (Auto) 5 Eos % (Auto) 0 Baso % (Auto) 0 Neut # (Auto) 8.4 H Lymph # (Auto) 1.1 Eddy # (Auto) 0.5 Eos # (Auto) 0.0 Baso # (Auto) 0.0 Immature Gran # (Auto) 0.15 H Absolute Nucleated RBC 0.00 Immature Gran % 2 H Nucleated RBC % 0 ESR 12 D-Dimer 706 H Puncture Site Left Radial ABG pH 7.43 ABG pCO2 42 ABG pO2 49 L* ABG HCO3 28 H ABG O2 Saturation 87 L ABG Base Excess 3 VBG pH 7.51 VBG pCO2 34 L VBG pO2 61 H VBG O2 Sat (Aurelia) 95 L VBG Base Excess 4 H FiO2 21 Sodium 141 Potassium 4.5 Chloride 108 H Carbon Dioxide 24.9 Anion Gap 8 BUN 32 H Creatinine 1.2 Estim Creat Clear Calc 47.4 L eGFR 51 L BUN/Creatinine Ratio 27 H Glucose 302 H D Calculated Osmolality 299 H Calcium 9.2 Corrected Calcium 9.7 Magnesium 2.3 Total Bilirubin 0.4 AST 15 ALT 12 Alkaline Phosphatase 44 L Total Protein 5.6 L Albumin 3.4 Globulin 2.2 L Albumin/Globulin Ratio 1.5 ABG Interpretation ABG results: 11/08/24 11/09/24 18:20 09:55 ABG pH 7.43 ABG pCO2 42 ABG pO2 49 L* ABG HCO3 28 H ABG O2 Saturation 87 L ABG Base Excess 3 VBG pH 7.51 VBG pCO2 34 L VBG pO2 61 H VBG Base Excess 4 H Quality Measures Quality Measures none Assessment & Plan Assessment Current Active Medications: Generic Name Dose Route Start Last Admin Trade Name Freq PRN Reason Stop Dose Admin Acetaminophen 650 mg 11/08/24 18:36 Acetaminophen 325 Mg Tablet PO 12/08/24 18:35 Q6H PRN Fever >101.5 Acetaminophen 650 mg 11/08/24 18:36 Acetaminophen 325 Mg Tablet PO 12/08/24 18:35 Q6H PRN PAIN SCALE 1-3 (mild Albuterol/Ipratropium 3 ml 11/08/24 19:00 11/09/24 14:42 Albuterol/Ipratropium (Duoneb) Rt Blanca 3 Ml Nebu INH 12/08/24 18:59 3 ml Q4HRRT KIP Administration Amlodipine Besylate 10 mg 11/09/24 09:00 11/09/24 08:03 Amlodipine Besylate 5 Mg Tablet PO 12/09/24 08:59 10 mg QDAY KIP Administration Dextrose 25 ml 11/09/24 00:49 Dextrose 50%-Water Inj 50 Ml Syringe IV 12/09/24 00:48 Q15MIN PRN BG 50-70 responsive npo pt Dextrose 50 ml 11/09/24 00:49 Dextrose 50%-Water Inj 50 Ml Syringe IV 12/09/24 00:48 Q15MIN PRN BG <50 OR BG <70 & pt unresponsive Glucagon 1 mg 11/09/24 00:49 Glucagon Inj 1 Mg Vial IM Q15MIN PRN BG <70, and no IV access Heparin Sodium (Porcine) 5,000 unit 11/08/24 21:00 11/09/24 08:06 Heparin Sod Inj 5000 Unit/Ml Vial SC 11/22/24 20:59 5,000 unit BID KIP Administration Azithromycin 250 mg/ Sodium 250 mls @ 250 mls/hr 11/09/24 14:00 11/09/24 14:33 Chloride IV 11/16/24 13:59 250 mls/hr QDAY@1400 KIP Administration Insulin Human Lispro 0 unit 11/09/24 07:30 11/09/24 11:32 Insulin Lispro (Admelog) 1 Unit/0.01 Ml Unit SC 12/09/24 07:29 Not Given ACHS KIP Protocol Methadone HCl 100 mg 11/09/24 09:00 11/09/24 09:21 Methadone Hcl 10 Mg Tablet PO 11/14/24 08:59 100 mg QDAY KIP Administration Methylprednisolone Sodium Succinate 40 mg 11/09/24 09:00 11/09/24 08:05 Methylprednisolone Sod Succ 40 Mg Vial IVP 11/13/24 08:59 40 mg QDAY KIP Administration Ondansetron HCl 4 mg 11/08/24 18:36 Ondansetron Inj 2 Mg/Ml Inj 2 Ml IV 12/08/24 18:35 Q6H PRN NAUSEA OR VOMITING Protocol Pantoprazole Sodium 40 mg 11/09/24 09:00 11/09/24 08:05 Pantoprazole 40 Mg Tablet PO 12/09/24 08:59 40 mg QDAY KIP Administration Sodium Chloride 3 ml 11/08/24 12:45 Sodium Chloride Rt Blanca 0.9% 3 Ml Nebu INH 12/08/24 12:44 PRN PRN SOLN Plan Christina Diaz is 64 year old female with PMHx of COPD on 2 L home oxygen, recurrent COPD exacerbation, A-fib, HTN, T2DM, Hx of PE, Takotsubo cardiomyopathy, and substance abuse disorder presenting with worsening SOB. Admitted for COPD exacerbation. Continued on BiPAP. #Acute on chronic hypoxemic respiratory failure 10/28 #COPD exacerbation vs #CHF exacerbation Presenting with 7 days of worsening SOB despite using home inhaler. Hx of COPD with recurrent exacerbation, on 2 L home oxygen. On presentation she was wheezing, desatting in the 80s on room air. Lung sounds clear on exam, no crackles, no wheezing after initiating treatment. CXR showed no active pulmonary disease including pneumonia. ABG showed pH 7.43, pCO2 42, O2 49%, bicarb 28. Last ECHO from 01/2024 showed EF 65-70. However, BNP slightly elevated and she does have trace to 1+ pitting bilateral LE edema. Also, she appears to be on FUROSEMIDE and SPIRONOLACTONE chronically, but med rec pending. ? Continue BiPAP, wean off when able to ? Continue DuoNebs q.4h. ? Continue SOLU-MEDROL 40 mg QDAY ? Continue AZITHROMYCIN (11/08-11/12) ? Continue LASIX 40 mg daily (home dose 20 mg daily) ? Strict JORGE's ? Physical therapy ? Oxygen PRN, wean off when able to #Leukocytosis Likely reactive in settings of COPD exacerbation. No signs of infection, CXR no pneumonia, afebrile. ? Continue monitoring ? Pending blood and urine culture #A-fib, rate controlled Likely paroxysmal. Tachycardic but normal rhythm on exam. EKG shows sinus tachycardia. [id number] 4 points, HAS-BLED 1, anticoagulation benefit > risk. -does not appear to be on any blood thinner #HTN urgency-resolved #Tachycardia Presenting with BP 193/92, HR 105 then 86 on repeat. Denies chest pain or palpitations. No signs of endorgan damage. Denies chest pain. Troponin normal. EKG without acute ST changes. From DC summary last month, she is on HYDRALAZINE 100 mg TID. ? Started AMLODIPINE 10 mg daily -spironolactone 50 mg daily -hold hydralazine for now #History of type 2 diabetes On admission initial glucose 207. Last A1c 6.5 on 10/16/24. Patient takes 26 unit glargine daily for diabetes at home. -started 20 units glargine -Held home medications -Bedside blood glucose checks ACHS -Insulin lispro sliding scale -Carb consistent low diet #Substance abuse disorder ? Continue home Methadone 100mg PO daily #Hx of PE #Hx of Takotsubo cardiomyopathy No signs or symptoms of acute exacerbation. ? Continue monitoring Health maintenance Diet: NPO GI prophylaxis: PROTONIX DVT prophylaxis: HEPARIN subcu Antibiotics: AZITHROMYCIN CODE STATUS: Full code Disposition: Managing [facility]F, COPD exacerbation The patient's management plan was discussed with my attending physician Dr. Mckeon and senior Dr. Suárez. Nikki Seymour, PGY-1 Attending Provider Attestation/Addendum I have discussed and was present for the essential components of the history, physical examination, diagnosis, and treatment plan with the resident. I agree with the patient's care as documented by the resident and amended herein by me. Rudi Mckeon, DO. Although this document has been carefully reviewed, there may still be some phonetic and other typographical errors. These errors are purely grammatical due to imperfections in the software program and should not be construed in any way to compromise the substance of the patient's medical care during this visit.
[2024-11-09] MEDS: SPIRONOLACTONE 25 MG TABLET 50 MG PO (18:11)
[2024-11-09] MEDS: ONDANSETRON INJ 2 MG/ML INJ 2 ML 4 MG IV (19:13)
[2024-11-09] MEDS: INSULIN GLARGINE (Lantus) 5 UNIT/0.05 ML (PER 5 UNITS) 20 UNIT SC (21:01)
--- NOTE | 2024-11-09 22:53 | PC.NURSE ---
Addendum entered by Davidson Becerra RN 11/09/24 22:57: [id number] stated patient had elevated T waves in the daytime. said she is okay with it for now. Original Note: Patient's awake overnight monitor is showing an elevated T wave. RN will notify hospitalists.
[2024-11-10] VITALS (18 sets, daily range): BP systolic 94–173; BP diastolic 60–90; PULSE 70–101; RESP 15–20; TEMP 36.1–36.4; O2SAT 93–100
[2024-11-10] MEDS: ALBUTEROL/IPRATROPIUM (Duoneb) RT SOL 3 ML NEBU INH ×5 (02:48→22:27)
[2024-11-10 05:50] LABS: Basophils % (Auto) 0 % (0-2.5); Eosinophils % (Auto) 0 % (0-10); Hematocrit 31.2 % (36.0-46.0); Hemoglobin 10.1 g/dL (12.0-16.0); Immature Granulocytes % (Auto) 1 % (0-0); Lymphocytes # (Auto) 2.4 Thou/mm3 (1.0-4.8); Lymphocytes % (Auto) 18 % (10-50); Mean Corpuscular HGB Conc 32.4 g/dl (31.0-37.0); Mean Corpuscular Hemoglobin 27.2 pg (25.0-35.0); Mean Corpuscular Volume 84 fL (80-100); Monocytes % (Auto) 7 % (0-12); Neutrophils # (Auto) 10.2 Thou/mm3 (1.8-7.7); Neutrophils % (Auto) 74 % (37-80); Nucleated Red Blood Cell % 0 /100 WBC (0); Platelet Count 185 Thou/mm3 (140-440); RDW Standard Deviation 41.1 fL (36.4-46.3); Red Blood Count 3.71 Miln/mm3 (4.00-5.20); White Blood Count 13.8 Thou/mm3 (3.6-11.0)
[2024-11-10 06:54] LABS: Alanine Aminotransferase 11 U/L (10-49); Albumin, Serum 3.3 gm/dL (3.4-4.8); Albumin/Globulin Ratio 1.6 (1.2-2.2); Alkaline Phosphatase 42 U/L (46-116); Anion Gap 7 (7-16); Aspartate Amino Transferase 13 U/L (0-34); BUN/Creatinine Ratio 32 Ratio (12-20); Bilirubin,Total 0.4 mg/dL (0.3-1.2); Blood Urea Nitrogen 38 mg/dL (9-23); Calcium 8.8 mg/dL (8.3-10.6); Calcium (Corrected) 9.4 mg/dL (8.5-10.1); Carbon Dioxide 25.5 mMol/L (20.0-31.0); Chloride 107 mMol/L (98-107); Creatinine (Component) 1.2 mg/dL (0.6-1.3); Estimated Creatinine Clearance 47.4 mL/min (>60); Globulin 2.1 gm/dL (2.3-3.5); Glucose 168 mg/dL (74-106); Magnesium 2.2 mg/dL (1.6-2.6); Osmolality,Calculated 290 (275-295); Potassium 4.5 mMol/L (3.4-5.1); Sodium 139 mMol/L (136-145); Total Protein 5.4 gm/dL (5.7-8.2); eGFR 51 See Note
[2024-11-10] MEDS: FAMOTIDINE 20 MG TABLET PO (09:39)
[2024-11-10] MEDS: SPIRONOLACTONE 25 MG TABLET 50 MG PO (09:39)
[2024-11-10] MEDS: amLODIPine BESYLATE 5 MG TABLET 10 MG PO (09:39)
[2024-11-10] MEDS: hydrALAZINE HCL 10 MG TABLET PO ×2 (09:40→20:43)
[2024-11-10] MEDS: APIXABAN 2.5 MG TABLET 5 MG PO ×2 (09:40→20:43)
[2024-11-10] MEDS: cloNIDine HCL 0.1 MG TABLET PO (09:40)
[2024-11-10] MEDS: Lisinopril 20 MG TABLET 40 MG PO (09:41)
[2024-11-10] MEDS: METOPROLOL SUCCINATE XL 25 MG TABCR PO (09:41)
[2024-11-10] MEDS: METHADONE HCL 10 MG TABLET 100 MG PO (09:42)
[2024-11-10] MEDS: SENNA TABLET 1 TAB PO (11:50)
--- NOTE | 2024-11-10 14:27 | PD.RESPRO ---
Documentation for date of: 11/10/24 Subjective Subjective Interval history: Patient seen and examined. No events overnight. Patient is off BiPAP and back to her basline O2 requirements--2L NC satting 98%. Home clonidine 0.1 mg,, lisinopril 40 mg daily, Eliquis 5 mg twice daily, hydralazine 10 mg 3 times daily, and MP xL 25 mg daily were resumed. Leukocytosis 13.8 likely reactive to steroids. Patient was fully counseled on prognosis of COPD condition. She continues to smoke and has frequent admissions for exacerbations requring BiPAP. Continue steroids, azithromycin, Lasix. Start senna 1 tab daily for BM. Anticipate discharge next 24 hours Exam Vital Signs Temp Pulse Resp BP Pulse Ox O2 Del Method O2 Flow Rate 97.5 F 76 19 94/62 94 L Nasal Cannula 2 11/10/24 12:00 11/10/24 12:00 11/10/24 12:00 11/10/24 12:00 11/10/24 12:00 11/10/24 12:00 11/10/24 12:00 FiO2 21 11/09/24 14:43 Narrative Exam General: elderly lady, No acute distress, cooperative HEENT: NCAT, No JVD noted. Pupils are equal and reactive to light bilaterally Cardiovascular: Normal S1 and S2. Regular rate and rhythm. Respiratory: expiratory wheezing, 2L nc Abdomen: Soft, nontender, not distended, normal bowel sounds. Skin: Warm to touch, dry, no rashes noted Musculoskeletal: No gross injuries. Able to move all 4 extremities. No pitting edema Neuro: Alert and oriented x3. No focal neuro deficits. Psych: Normal affect and mood Objective Labs 11/10/24 05:13 11/10/24 05:13 Labs: Laboratory Results - last 24 hr 11/10/24 05:13 WBC 13.8 H RBC 3.71 L Hgb 10.1 L Hct 31.2 L MCV 84 MCH 27.2 MCHC 32.4 RDW Std Deviation 41.1 Plt Count 185 Neut % (Auto) 74 Lymph % (Auto) 18 [place] % (Auto) 7 Eos % (Auto) 0 Baso % (Auto) 0 Neut # (Auto) 10.2 H Lymph # (Auto) 2.4 [place] # (Auto) 1.0 H Eos # (Auto) 0.0 Baso # (Auto) 0.0 Immature Gran # (Auto) 0.20 H Absolute Nucleated RBC 0.00 Immature Gran % 1 H Nucleated RBC % 0 Sodium 139 Potassium 4.5 Chloride 107 Carbon Dioxide 25.5 Anion Gap 7 BUN 38 H Creatinine 1.2 Estim Creat Clear Calc 47.4 L eGFR 51 L BUN/Creatinine Ratio 32 H Glucose 168 H D Calculated Osmolality 290 Calcium 8.8 Corrected Calcium 9.4 Magnesium 2.2 Total Bilirubin 0.4 AST 13 ALT 11 Alkaline Phosphatase 42 L Total Protein 5.4 L Albumin 3.3 L Globulin 2.1 L Albumin/Globulin Ratio 1.6 ABG Interpretation ABG results: 11/08/24 11/09/24 18:20 09:55 ABG pH 7.43 ABG pCO2 42 ABG pO2 49 L* ABG HCO3 28 H ABG O2 Saturation 87 L ABG Base Excess 3 VBG pH 7.51 VBG pCO2 34 L VBG pO2 61 H VBG Base Excess 4 H Quality Measures Quality Measures none Assessment & Plan Assessment Current Active Medications: Generic Name Dose Route Start Last Admin Trade Name Freq PRN Reason Stop Dose Admin Acetaminophen 650 mg 11/08/24 18:36 Acetaminophen 325 Mg Tablet PO 12/08/24 18:35 Q6H PRN Fever >101.5 Acetaminophen 650 mg 11/08/24 18:36 Acetaminophen 325 Mg Tablet PO 12/08/24 18:35 Q6H PRN PAIN SCALE 1-3 (mild Albuterol/Ipratropium 3 ml 11/08/24 19:00 11/10/24 11:07 Albuterol/Ipratropium (Duoneb) Rt Blanca 3 Ml Nebu INH 12/08/24 18:59 3 ml Q4HRRT KIP Administration Amlodipine Besylate 10 mg 11/09/24 09:00 11/10/24 09:39 Amlodipine Besylate 5 Mg Tablet PO 12/09/24 08:59 10 mg QDAY KIP Administration Apixaban 5 mg 11/10/24 09:00 11/10/24 09:40 Apixaban 2.5 Mg Tablet PO 12/10/24 08:59 5 mg BID KIP Administration Clonidine 0.1 mg 11/10/24 09:00 11/10/24 09:40 Clonidine Hcl 0.1 Mg Tablet PO 12/10/24 08:59 0.1 mg DAILY KIP Administration Dextrose 25 ml 11/09/24 00:49 Dextrose 50%-Water Inj 50 Ml Syringe IV 12/09/24 00:48 Q15MIN PRN BG 50-70 responsive npo pt Dextrose 50 ml 11/09/24 00:49 Dextrose 50%-Water Inj 50 Ml Syringe IV 12/09/24 00:48 Q15MIN PRN BG <50 OR BG <70 & pt unresponsive Famotidine 20 mg 11/10/24 09:00 11/10/24 09:39 Famotidine 20 Mg Tablet PO 12/10/24 08:59 20 mg QDAY KIP Administration Glucagon 1 mg 11/09/24 00:49 Glucagon Inj 1 Mg Vial IM Q15MIN PRN BG <70, and no IV access Hydralazine HCl 10 mg 11/10/24 08:15 11/10/24 09:40 Hydralazine Hcl 10 Mg Tablet PO 12/10/24 08:14 10 mg TID KIP Administration Azithromycin 250 mg/ Sodium 250 mls @ 250 mls/hr 11/09/24 14:00 11/09/24 14:33 Chloride IV 11/16/24 13:59 250 mls/hr QDAY@1400 KIP Administration Insulin Glargine 20 unit 11/09/24 21:00 11/09/24 21:01 Insulin Glargine (Lantus) 5 Unit/0.05 Ml (Per 5 Units) SC 12/09/24 20:59 20 unit HS KIP Administration Insulin Human Lispro 0 unit 11/09/24 07:30 11/10/24 11:45 Insulin Lispro (Admelog) 1 Unit/0.01 Ml Unit SC 12/09/24 07:29 Not Given [facility] Protocol Lisinopril 40 mg 11/10/24 09:00 11/10/24 09:41 Lisinopril 20 Mg Tablet PO 12/10/24 08:59 40 mg QDAY KIP Administration Methadone HCl 100 mg 11/09/24 09:00 11/10/24 09:42 Methadone Hcl 10 Mg Tablet PO 11/14/24 08:59 100 mg QDAY KIP Administration Methylprednisolone Sodium Succinate 40 mg 11/09/24 09:00 11/10/24 09:42 Methylprednisolone Sod Succ 40 Mg Vial IVP 11/13/24 08:59 40 mg QDAY KIP Administration Metoprolol Succinate 25 mg 11/10/24 09:00 11/10/24 09:41 Metoprolol Succinate Xl 25 Mg Tabcr PO 12/10/24 08:59 25 mg QDAY KIP Administration Nicotine 21 mg 11/10/24 12:15 Nicotine Patch 21 Mg/24 Hr Patch.Td24 TOP 12/10/24 12:14 QDAY KIP Ondansetron HCl 4 mg 11/08/24 18:36 11/09/24 19:13 Ondansetron Inj 2 Mg/Ml Inj 2 Ml IV 12/08/24 18:35 4 mg Q6H PRN Administration NAUSEA OR VOMITING Protocol Sennosides 1 tab 11/10/24 10:30 11/10/24 11:50 Senna Tablet PO 12/10/24 10:29 1 tab QDAY KIP Administration Protocol Sodium Chloride 3 ml 11/08/24 12:45 Sodium Chloride Rt Blanca 0.9% 3 Ml Nebu INH 12/08/24 12:44 PRN PRN SOLN Spironolactone 50 mg 11/09/24 15:45 11/10/24 09:39 Spironolactone 25 Mg Tablet PO 12/09/24 15:44 50 mg DAILY KIP Administration Plan Christina Diaz is 64 year old female with PMHx of COPD on 2 L home oxygen, recurrent COPD exacerbation, A-fib, HTN, T2DM, Hx of PE, Takotsubo cardiomyopathy, and substance abuse disorder presenting with worsening SOB. Admitted for COPD exacerbation. Continued on BiPAP. #Acute on chronic hypoxemic respiratory failure /-resolved #COPD exacerbation vs #CHF exacerbation Hx of COPD with recurrent exacerbation, on 2 L home oxygen. On presentation she was wheezing, desatting in the 80s on room air. CXR showed no active pulmonary disease. ABG showed pH 7.43, pCO2 42, O2 49%, bicarb 28. Last ECHO from 01/2024 showed EF 65-70. ? Continue DuoNebs q.4h. ? Continue SOLU-MEDROL 40 mg QDAY ? Continue AZITHROMYCIN (11/08-11/12) ? Continue LASIX 40 mg daily (home dose 20 mg daily) ? Strict JORGE's ? Physical therapy ? Oxygen PRN, wean off when able to #Leukocytosis Likely reactive to steroids. No signs of infection, CXR no pneumonia, afebrile. ? Continue monitoring #A-fib, rate controlled Likely paroxysmal. Tachycardic but normal rhythm on exam. EKG shows sinus tachycardia. [id number] 4 points, HAS-BLED 1, anticoagulation benefit > risk. -eliquis 5mg BID #HTN urgency-resolved #Tachycardia Presenting with BP 193/92, HR 105 then 86 on repeat. Denies chest pain or palpitations. No signs of endorgan damage. Denies chest pain. Troponin normal. EKG without acute ST changes. ?Clonidine 0.1 mg daily ? Lisinopril 40 mg daily ? Hydralazine 10 mg 3 times daily ? Metoprolol 25 mg daily #History of type 2 diabetes On admission initial glucose 207. Last A1c 6.5 on 10/16/24. Patient takes 26 unit glargine daily for diabetes at home. -started 20 units glargine -Held home medications -Bedside blood glucose checks ACHS -Insulin lispro sliding scale -Carb consistent low diet #Substance abuse disorder ? Continue home Methadone 100mg PO daily #Hx of PE #Hx of Takotsubo cardiomyopathy No signs or symptoms of acute exacerbation. ? Continue monitoring Health maintenance Diet: CHO consitant GI prophylaxis: PROTONIX DVT prophylaxis: HEPARIN subcu Antibiotics: AZITHROMYCIN CODE STATUS: Full code Disposition: dc tomorrow The patient's management plan was discussed with my attending physician Dr. Mckeon. Nikki Seymour, PGY-1 Attending Provider Attestation/Addendum I have discussed and was present for the essential components of the history, physical examination, diagnosis, and treatment plan with the resident. I agree with the patient's care as documented by the resident and amended herein by me. Rudi Mckeon, DO. Patient seen and evaluated this AM. Vital signs stable, patient afebrile overnight, BP elevated at 173/90 mmHg in the morning. WBC 14, BUN 38, other labs largely unremarkable. Patient on her baseline O2 however will continue steroids for now. Likely discharge on 11/11. I did have an extensive conversation with the patient on the necessity for her to quit tobacco use and to distance herself from individuals in her household who also use tobacco as to not inhale secondhand smoke. I let her know that her COPD will only get worse and it is the upmost importance to minimize the damage to her lungs from here on out and she stated she understood and did become emotional stating she did not want to . Will continue to monitor closely while she is here. Although this document has been carefully reviewed, there may still be some phonetic and other typographical errors. These errors are purely grammatical due to imperfections in the software program and should not be construed in any way to compromise the substance of the patient's medical care during this visit.
[2024-11-10] MEDS: NICOTINE PATCH 21 MG/24 HR PATCH.TD24 TOP (14:39)
[2024-11-10] MEDS: AZITHROMYCIN INJ 250 MG in SODIUM CHLORIDE 0.9% 250 ML 250 ML IV (14:40)
[2024-11-10] MEDS: INSULIN LISPRO (AdmeLOG) 1 UNIT/0.01 ML UNIT SC ×2 (17:07→20:42)
[2024-11-10] MEDS: INSULIN GLARGINE (Lantus) 5 UNIT/0.05 ML (PER 5 UNITS) 20 UNIT SC (20:42)
[2024-11-11] VITALS (12 sets, daily range): BP systolic 119–149; BP diastolic 62–90; PULSE 68–81; RESP 14–20; TEMP 36.1–36.2; O2SAT 95–100
[2024-11-11] MEDS: ALBUTEROL/IPRATROPIUM (Duoneb) RT SOL 3 ML NEBU INH ×3 (02:45→11:13)
[2024-11-11] MEDS: hydrALAZINE HCL 10 MG TABLET PO (05:33)
[2024-11-11] MEDS: ONDANSETRON INJ 2 MG/ML INJ 2 ML 4 MG IV (05:36)
[2024-11-11 08:01] LABS: Basophils % (Auto) 0 % (0-2.5); Eosinophils % (Auto) 0 % (0-10); Hematocrit 36.7 % (36.0-46.0); Hemoglobin 12.6 g/dL (12.0-16.0); Immature Granulocytes % (Auto) 0 % (0-0); Lymphocytes # (Auto) 1.2 Thou/mm3 (1.0-4.8); Lymphocytes % (Auto) 28 % (10-50); Mean Corpuscular HGB Conc 34.3 g/dl (31.0-37.0); Mean Corpuscular Hemoglobin 29.4 pg (25.0-35.0); Mean Corpuscular Volume 86 fL (80-100); Monocytes # (Auto) 0.4 Thou/mm3 (0.0-0.8); Monocytes % (Auto) 10 % (0-12); Neutrophils # (Auto) 2.8 Thou/mm3 (1.8-7.7); Neutrophils % (Auto) 62 % (37-80); Nucleated Red Blood Cell % 0 /100 WBC (0); Platelet Count 165 Thou/mm3 (140-440); RDW Standard Deviation 43.6 fL (36.4-46.3); Red Blood Count 4.28 Miln/mm3 (4.00-5.20); White Blood Count 4.5 Thou/mm3 (3.6-11.0)
[2024-11-11 08:15] LABS: Alanine Aminotransferase 13 U/L (10-49); Albumin, Serum 3.7 gm/dL (3.4-4.8); Albumin/Globulin Ratio 1.3 (1.2-2.2); Alkaline Phosphatase 71 U/L (46-116); Anion Gap 10 (7-16); Aspartate Amino Transferase 16 U/L (0-34); BUN/Creatinine Ratio 18 Ratio (12-20); Bilirubin,Total 0.4 mg/dL (0.3-1.2); Blood Urea Nitrogen 36 mg/dL (9-23); Calcium 8.7 mg/dL (8.3-10.6); Calcium (Corrected) 8.9 mg/dL (8.5-10.1); Carbon Dioxide 21.6 mMol/L (20.0-31.0); Chloride 105 mMol/L (98-107); Estimated Creatinine Clearance 28.4 mL/min (>60); Globulin 2.8 gm/dL (2.3-3.5); Glucose 133 mg/dL (74-106); Magnesium 1.7 mg/dL (1.6-2.6); Osmolality,Calculated 284 (275-295); Potassium 4.1 mMol/L (3.4-5.1); Sodium 137 mMol/L (136-145); Total Protein 6.5 gm/dL (5.7-8.2); eGFR 28 See Note
[2024-11-11] MEDS: guaiFENesin SYRUP 200 MG/10 ML UDC 100 MG PO (08:39)
[2024-11-11] MEDS: METHADONE HCL 10 MG TABLET 100 MG PO (08:40)
[2024-11-11] MEDS: FAMOTIDINE 20 MG TABLET PO (08:40)
[2024-11-11] MEDS: APIXABAN 2.5 MG TABLET 5 MG PO (08:40)
[2024-11-11] MEDS: Lisinopril 20 MG TABLET 40 MG PO (08:41)
[2024-11-11] MEDS: SPIRONOLACTONE 25 MG TABLET 50 MG PO (08:42)
[2024-11-11] MEDS: amLODIPine BESYLATE 5 MG TABLET 10 MG PO (08:43)
[2024-11-11] MEDS: cloNIDine HCL 0.1 MG TABLET PO (08:43)
[2024-11-11] MEDS: NICOTINE PATCH 21 MG/24 HR PATCH.TD24 TOP (08:44)
[2024-11-11] MEDS: METOPROLOL SUCCINATE XL 25 MG TABCR PO (08:44)
[2024-11-11] MEDS: SENNA TABLET 1 TAB PO (08:45)
[2024-11-11] MEDS: SODIUM CHLORIDE 0.9% 500 ML 500 ML 999 ML IV (12:58)
[2024-11-11 13:18] LABS: Anion Gap 7 (7-16); BUN/Creatinine Ratio 47 Ratio (12-20); Blood Urea Nitrogen 52 mg/dL (9-23); Calcium 8.9 mg/dL (8.3-10.6); Carbon Dioxide 26.2 mMol/L (20.0-31.0); Chloride 104 mMol/L (98-107); Creatinine (Component) 1.1 mg/dL (0.6-1.3); Estimated Creatinine Clearance 51.7 mL/min (>60); Glucose 101 mg/dL (74-106); Osmolality,Calculated 287 (275-295); Sodium 137 mMol/L (136-145); eGFR 56 See Note
--- NOTE | 2024-11-11 15:10 | ESDS_ITS ---
Planned Discharge Date 11/11/24 DS: Providers Provider Date of admission: 11/08/24 18:36 Primary care physician: Apolinar Tai MD Admitting Provider: Tomasz Mckeon DO Attending Provider on Admission: Tomasz Mckeon DO Consults: 11/08/24 23:33 Referral Physical Therapy Routine Comment: Physician Instructions: Referral Respiratory Therapy Routine Comment: 11/09/24 05:28 Consult to General Surgery Routine Comment: Ventral hernia, non-reducible Consulting Provider: London Newman Attending Provider on DC: Tomasz Mckeon DO Discharging Provider: Tomasz Mckeon DO DS: Diagnosis Problem List Completed Was Problem List Reviewed/Reconciled?: Yes Hospital Course Hospital Course Hospital course: 64-year-old female with past medical history of COPD (on 2 L at home oxygen), recurrent COPD exacerbation, A-fib, hypertension, DM2, PE, Takotsubo cardiomyopathy, and substance abuse disorder currently on methadone was admitted to the hospital on 11/08/2024 due to acute on chronic hypoxic respiratory failure likely in the setting of COPD exacerbation and hypertensive urgency. Came into the ED with complaints of increased shortness of breath. Initially was hypertensive, tachycardic, hypoxic, and afebrile. Initial labs were relevant for leukocytosis (12.7), hypoxemia on ABG, and mildly elevated BNP (158). Initial imaging included chest x-ray which was unremarkable and EKG that showed sinus tachycardia. Patient was placed on azithromycin, Solu-Medrol, BiPAP, and DuoNebs for COPD exacerbation. For hypertensive urgency was started on amlodipine, clonidine, hydralazine, lisinopril, and metoprolol. Additional imaging included abdomen/pelvis CT that showed multiple subcentimeter periaortic lymph nodes and was recommended to follow-up in [address] of the abdomen/pelvis with contrast. Throughout the hospital stay patient remained stable. Patient was weaned off the BiPAP and was back to her baseline on O2. Patient developed an THEO in the hospital, which could have been due to her high blood pressure, but on repeat labs her kidney function was back to within normal limits. At the time of discharge patient was stable enough to be discharged back home. Discharge plan: Please follow-up with primary care physician in 1 week after discharge You have been started on prednisone 40 mg daily for 3 more days. Continue taking all other home medications as prescribed Please come back to the ER if symptoms persist or worsen Problems: #Acute on chronic hypoxemic respiratory failure #COPD exacerbation #HTN urgency-resolved #Tachycardia #Leukocytosis #A-fib, rate controlled #History of type 2 diabetes #Hx of PE #Hx of Takotsubo cardiomyopathy #Substance abuse disorder Case disclosed with Attending Dr. Mckeon and My senior Dr. Suárez PGY3. Oscar Meier PGY1 Status at Discharge Overall status at discharge: patient is progressing back to baseline Time Spent with Patient Time attestation: Total time spent providing and/or coordinating discharge services:>35 min Exam Vital Signs Temp Pulse Resp BP Pulse Ox O2 Del Method O2 Flow Rate 97.0 F 75 16 119/62 98 Nasal Cannula 2 11/11/24 12:00 11/11/24 12:00 11/11/24 12:00 11/11/24 12:11/11/24 12:11/11/24 12:11/11/24 12:00 FiO2 21 11/09/24 14:43 Narrative Exam General: A/O x3, no acute distress, disheveled Eyes: PERRL, EOMI. Anicteric, vision grossly intact. Ears: no ear discharge, Hearing grossly intact. Nose: No nasal discharge. Mouth/Throat: Moist mucous membranes, no redness, no lesions. Neck: Neck supple, non-tender, no cervical lymphadenopathy. Lungs: Mild expiratory wheezing, No accessory muscle use. Cardio: Normal S1/S2, regular rhythm, no murmurs, no JVD Abdomen: Soft, non-tender, no palpable masses, peristalsis present, no guarding or rebound. Extremities: Symmetrical, no significant deformities, no peripheral edema , non-tender, peripheral pulses presents. Skin: No rashes, no lesions, warm to touch. Neuro: No focal neurological deficits. motor and sensory intact Discharge Plan Plan Patient Disposition: HOME (Self Care) Care Plan Goals: Please follow-up with primary care physician in 1 week after discharge You have been started on prednisone 40 mg daily for 3 more days. Continue taking all other home medications as prescribed Please come back to the ER if symptoms persist or worsen Prescriptions/Referrals Prescriptions/Med Rec: New prednisone 20 mg tablet 40 mg PO QDAY 3 Days Qty: 6 0RF Taper: Prednisone Taper 40 mg DAILY for 3 Days and 0 Hour Discontinued ciprofloxacin HCl [Cipro] 500 mg tablet 500 mg PO BID Qty: 14 0RF No Action tramadol 50 mg tablet 50 mg PO Q8H PRN (Reason: pain) Qty: 20 0RF hydralazine 100 mg tablet 100 mg PO TID Qty: 90 0RF albuterol sulfate 90 mcg/actuation HFA aerosol inhaler 1 puff inhalation QID PRN (Reason: shortness of breath or wheezing) Qty: 8.5 0RF aspirin 81 mg tablet,delayed release (DR/EC) 81 mg PO QDAY Qty: 30 0RF buspirone 5 mg tablet 5 mg PO QDAY Qty: 30 0RF furosemide [Lasix] 20 mg tablet 20 mg PO QAM Qty: 30 0RF lactulose 10 gram/15 mL solution 10 g PO QDAY PRN (Reason: constipation) Qty: 3785 0RF lidocaine 5 % adhesive patch,medicated 1 patch topical QDAY Qty: 30 0RF Rx Instructions: leave on most painful area for up to 12 hrs spironolactone 50 mg tablet 50 mg PO QDAY Qty: 30 0RF Trelegy Ellipta 200-62.5-25 mcg blister with device 1 inh inhalation QDAY Qty: 60 0RF insulin glargine [Basaglar KwikPen U-100 Insulin] 100 unit/mL (3 mL) insulin pen 26 unit subcut QPM Qty: 15 0RF methadone 10 mg/5 mL Solution 100 mg PO QDAY nitroglycerin 0.4 mg Tablet, Sublingual 0.4 mg BUCCAL Q5MIN PRN (Reason: Chest Pain) ondansetron 4 mg tablet,disintegrating 4 mg PO Q8H PRN (Reason: nausea and vomiting) Qty: 10 0RF meclizine 50 mg tablet 50 mg PO BID PRN (Reason: dizziness or vertigo) Qty: 10 0RF Proair Digihaler 90 mcg/actuation aero powdr breath act w/sensor 2 inh inhalation Q6H PRN (Reason: shortness of breath or wheezing) Qty: 1 0RF prednisone 50 mg tablet 50 mg PO QDAY Qty: 7 0RF Referrals: Zaire,Apolinar Y, MD [Primary Care Provider] - Patient/Caregiver Discharge Instructions Other Discharge Activity Instructions:: Please follow-up with primary care physician in 1 week after discharge You have been started on prednisone 40 mg daily for 3 more days. Continue taking all other home medications as prescribed Please come back to the ER if symptoms persist or worsen Education Materials: Discharge Instructions: COPD Print Language: Occitan Stand Alone Forms: Kaylynn Award Info., Patient Portal Info Letter Discharge Order Discharge Orders: Discharge (Routine); Ordered 11/11/24 Ordered By: Oscar Meier Quality Discharge Quality Measures VTE prophylaxis Attestestation Attestation I have discussed and was present for the essential components of the discharge history, physical examination, diagnosis, and discharge treatment plan with the resident. I agree with the patient's discharge care as documented by the resident and amended herein by me. Rudi Mckeon DO. The patient understood all discharge instructions, all questions were answered satisfactorily. The patient was instructed to return to the Emergency Department is symptoms worsened or persisted. Patient is stable, back on her baseline O2 of 2 L, and tolerating p.o. intake. Physical therapy did recommend SNF placement however the patient refused and wishes to go home. Patient has oxygen at home. I strenuously counseled the patient on the necessity for continued smoking cessation and she states she understood. All questions were answered satisfactorily, the patient will be discharged home. Although this document has been carefully reviewed, there may still be some phonetic and other typographical errors. These errors are purely grammatical due to imperfections in the software program and should not be construed in any way to compromise the substance of the patient's medical care during this visit.
== END 2024-11-11 15:12 | disposition home or self-care (01) | DRG 140 ==
LOC: SERX 18:12 → SERHOLD 19:07 → S3SX 23:13
PROVIDERS: Emergency Medicine; Student in an Organized Health Care Education/Training Program; Admitting Provider Student in an Organized Health Care Education/Training Program; Emergency Provider Emergency Medicine; PCP Family Medicine; Visit Provider Student in an Organized Health Care Education/Training Program
DX: J44.1 Chronic obstructive pulmonary disease with (acute) exacerbation (principal); J96.21 Acute and chronic respiratory failure with hypoxia; E11.9 Type 2 diabetes mellitus without complications; R00.0 Tachycardia, unspecified; F11.10 Opioid abuse, uncomplicated; D72.829 Elevated white blood cell count, unspecified; N17.9 Acute kidney failure, unspecified; I48.0 Paroxysmal atrial fibrillation; F19.10 Other psychoactive substance abuse, uncomplicated; I48.91 Unspecified atrial fibrillation; I11.0 Hypertensive heart disease with heart failure; I16.0 Hypertensive urgency; Z99.81 Dependence on supplemental oxygen; Z86.711 Personal history of pulmonary embolism; Z87.891 Personal history of nicotine dependence; I50.9 Heart failure, unspecified; Z79.899 Other long term (current) drug therapy; Z79.4 Long term (current) use of insulin; Z88.5 Allergy status to narcotic agent; Z88.8 Allergy status to other drugs, medicaments and biological substances; Z88.0 Allergy status to penicillin; Z11.52 Encounter for screening for COVID-19
CPT/HCPCS: 36415; 36600; 71045; 74177; 80048; 80053; 81001; 82803; 83605; 83690; 83735; 83880; 84145; 84484; 85025; 85379; 85610; 85652; 85730; 86140; 87040; 87086; 93005; 93225; 94640; 94644; 94660; 94664; 96365; 96375; 97161; 99285; A4649; A9270; J0360; J0456; J1643; J1815; J2060; J2405; J2919; J7040; J7050; Q9967

== ENCOUNTER 2024-11-30 19:09 | Emergency (ER) | payer MEDICAID, SELFPAY ==
[2024-11-30 19:12] VITALS: BP 156/86; PULSE 99; RESP 16; TEMP 36.8; O2SAT 95; BMI 21.9
[2024-11-30 19:16] VITALS: PULSE 103; RESP 22; O2SAT 91
--- NOTE | 2024-11-30 19:21 | EKG_ITS ---
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
--- NOTE | 2024-11-30 19:27 | PD.EDADULT ---
ED General RME/HPI General Chief complaint: Shortness of Breath/Dyspnea Stated complaint: SOB Time Seen by Provider: 11/30/24 19:27 Arrival date/time: 11/30/24 19:09 RME / HPI RME / HPI narrative: Patient is 64 years old female with past medical history of COPD (on 2 L at home oxygen), recurrent COPD exacerbation, A-fib, hypertension, DM2, PE, Takotsubo cardiomyopathy, and substance abuse disorder currently on methadone presented to the ED complaining of worsening shortness of breath and cough. She reports this started today morning when she developed shortness of breath, she tried home inhaler twice but did not help much. She also reports worsening cough and thick green mucus production. She reports no fever, chills, chest pain, abdominal pain, nausea or vomiting. Patient also reported lower abdominal discomfort and burning with urination. Related Data Home Medications ?Medication ?Instructions ?Recorded ?Confirmed methadone 10 mg/5 mL oral solution 100 mg PO QDAY 02/07/24 08/04/24 nitroglycerin 0.4 mg sublingual 0.4 mg buccal Q5MIN PRN Chest Pain 02/07/24 08/04/24 tablet Previous Rx's ?Medication ?Instructions ?Recorded tramadol 50 mg tablet 50 mg PO Q8H PRN pain #20 tabs 04/06/24 albuterol sulfate 90 mcg/actuation 1 puff inhalation QID PRN 08/06/24 aerosol inhaler shortness of breath or wheezing #8.5 grams aspirin 81 mg tablet,delayed 81 mg PO QDAY #30 tabs 08/06/24 release buspirone 5 mg tablet 5 mg PO QDAY #30 tabs 08/06/24 fluticasone fur. 200 mcg-umeclid 1 inh inhalation QDAY #60 ea 08/06/24 62.5 mcg-vilant 25 mcg inhalat.powder (Trelegy Ellipta) furosemide 20 mg tablet (Lasix) 20 mg PO QAM #30 tabs 08/06/24 hydralazine 100 mg tablet 100 mg PO TID #90 tabs 08/06/24 lactulose 10 gram/15 mL oral 10 g (15 mL) PO QDAY PRN 08/06/24 solution constipation #3,785 mL lidocaine 5 % topical patch 1 patch topical QDAY #30 ea 08/06/24 spironolactone 50 mg tablet 50 mg PO QDAY #30 tabs 08/06/24 insulin glargine 100 unit/mL (3 26 unit (0.26 mL) subcut QPM #15 mL 08/07/24 mL) subcutaneous pen (Basaglar KwikPen U-100 Insulin) meclizine 50 mg tablet 50 mg PO BID PRN dizziness or 10/27/24 vertigo #10 tabs ondansetron 4 mg disintegrating 4 mg PO Q8H PRN nausea and 10/27/24 tablet vomiting #10 tabs albuterol sulfate 90 mcg/actuation 2 inh inhalation Q6H PRN shortness 11/01/24 breath activated powder of breath or wheezing #1 ea inhaler,sensor (Proair Digihaler) prednisone 50 mg tablet 50 mg PO QDAY #7 tabs 11/01/24 levofloxacin 500 mg tablet 500 mg PO QDAY 4 days #4 tabs 11/30/24 prednisone 20 mg tablet 40 mg PO QDAY 4 days #8 tabs 11/30/24 Allergies Allergy/AdvReac Type Severity Reaction Status Date / Time codeine Allergy Severe RASH Verified 11/30/24 19:16 diphenhydramine HCl Allergy Severe Hives Verified 11/30/24 19:16 egg Allergy Severe Rash Verified 11/30/24 19:16 Penicillins Allergy Severe SWELLING, Verified 11/30/24 19:16 RESP DISTRESS pentazocine (From [place]) Allergy Severe Hives Verified 11/30/24 19:16 Review of Systems Review of Systems Systems Reviewed: All systems reviewed, normal except as documented ED Exam Narrative Physical exam: Gen: Well-developed and well-nourished female. HEENT: NCAT, PERRLA, EOMI, MMM, anicteric conjunctivae. CVS: normal S1 and S2. RRR. No M/R/G. Resp: mild wheezing B/L. No rhonchi, rales, crackles. Abd: soft, non-tender, non-distended. BS+ in all 4 quadrants. MSK: Good ROM in BUE & BLE. No rash. 1+ edema BLE. Neuro: CN II-XII grossly intact. Strength 5/5 in BUE & BLE. Alert and oriented x3. Psych: appropriate mood and affect. Course Quality Measures none Orders Category Date Time Status Bedside COVID-19 Antigen Test NOW Care 11/30/24 19:58 Active Bedside Influenza A&B Antigen Test NOW Care 11/30/24 19:58 Completed EKG (ED ONLY) *Do not use* NOW Care 11/30/24 19:21 Completed CXRP [XR chest 1V portable] Stat Exams 11/30/24 19:28 Completed EKG (ED Only) Stat Exams 11/30/24 19:21 Draft ABG [Arterial Blood Gas] Stat Lab 11/30/24 20:32 Ordered BNP [B-Type Natriuretic Peptide] Stat Lab 11/30/24 21:24 Completed CBC Stat Lab 11/30/24 20:49 Completed Comprehensive Metabolic Panel Stat Lab 11/30/24 20:49 Completed D-Dimer Stat Lab 11/30/24 20:49 Completed Magnesium Stat Lab 11/30/24 20:49 Completed RSV [Respiratory Syncytial Virus Ag] Stat Lab 11/30/24 19:59 Ordered Troponin I Stat Lab 11/30/24 20:49 Completed Urinalysis Stat Lab 11/30/24 22:38 Completed VBG [Venous Blood Gas] Stat Lab 11/30/24 20:32 Completed Albuterol/Ipratr Rt Blanca [Duoneb Rt Blanca] Med 11/30/24 19:28 Discontinued 3 ml INH X1 ONE Azithromycin Inj [Zithromax Inj] 500 mg Med 12/01/24 14:00 Discontinued Sodium Chloride 0.9% 250 ml [Ns] 250 ml IV QDAY@1400 Azithromycin Inj [Zithromax Inj] 500 mg Med 11/30/24 19:45 Discontinued Sodium Chloride 0.9% 250 ml [Ns] 250 ml IV X1 Azithromycin Po [Zithromax PO] Med 11/30/24 20:02 Discontinued 500 mg PO X1 ONE predniSONE Med 11/30/24 19:30 Discontinued 40 mg PO X1 ONE Oxygen Delivery NOW RT 11/30/24 19:30 Active Vital Signs Vital signs: Vital Signs Temperature 98.3 F 11/30/24 19:12 Pulse Rate 99 11/30/24 19:12 Respiratory Rate 16 11/30/24 19:12 Blood Pressure 156/86 H 11/30/24 19:12 Pulse Oximetry (%) 95 11/30/24 19:12 Oxygen Delivery Method Nasal Cannula 11/30/24 19:12 Oxygen Flow Rate 6 11/30/24 19:12 MDM Patient data External records reviewed:: [facility] previous records and EMS form Clinical information provided by:: patient and EMS Social determinants that could affect healthcare access:: none Patient has the following chronic illnesses:: COPD (on 2 L at home oxygen), recurrent COPD exacerbation, A-fib, hypertension, DM2, PE, Takotsubo cardiomyopathy, and substance abuse disorder currently on methadone How is presenting disease/condition affected by chronic disease/condition?: caused by Evaluation data The following diagnostics were reviewed and interpreted by me:: lab results, radiology exam(s) and EKG tracing(s) Lab and/or radiology exams considered but not ordered:: CTA Interpretation Summary: COPD exacerbation, UTI Medications Medications considered but not ordered:: Ceftriaxone Medication administrations:: Medication Administration History Discontinued Medications Albuterol/Ipratropium (Albuterol/Ipratropium (Duoneb) Rt Blanca 3 Ml Nebu) 3 ml INH X1 ONE Stop: 11/30/24 19:29 Last Admin: 11/30/24 20:09 Dose: 3 ml Documented By: ALETHEA Azithromycin (Azithromycin 250 Mg Tablet) 500 mg PO X1 ONE Stop: 11/30/24 20:03 Last Admin: 11/30/24 20:09 Dose: 500 mg Documented By: LAQUITA Azithromycin 500 mg/ Sodium (Chloride) 250 mls @ 250 mls/hr IV QDAY@1400 KIP Stop: 12/08/24 13:59 Azithromycin 500 mg/ Sodium (Chloride) 250 mls @ 250 mls/hr IV X1 ONE Stop: 11/30/24 20:44 Last Admin: 11/30/24 20:11 Dose: Not Given Documented By: LAQUITA Non-Admin Reason: Cancelled by Provider Prednisone (Prednisone 20 Mg Tablet) 40 mg PO X1 ONE Stop: 11/30/24 19:31 Last Admin: 11/30/24 20:09 Dose: 40 mg Documented By: LAQUITA Prednisone 40 mg, Azithromycin 500 mg, Duoneb. Consultations Consultation(s) initiated? (list below): No Diagnosis Differential Diagnosis ED Complaint MDM: COPD exacerbation, PNA Most likely diagnosis given after review of the tests above:: COPD exacerbation Admission Indicated Admission indicated?: not indicated Explain why admission is indicated or not indicated:: Patient is having simple COPD exacerbation without respiratory failure and can be managed outpatient. She was also found to have simple UTI, does not meet sepsis criteria and can be treated outpatient. Admission Request Was there a request for admission?: No Disposition Plan Disposition Plan: Discharge Discharge Attestation Discharge Attestation: The patient and all family members were given an opportunity to ask questions and understood the discharge instructions. Discharge instructions specifically effects, indications for sooner follow up or return to the emergency department, and the expected course of current diagnosis. Patient condition: Stable Medical Decision Making Differential Diagnosis Differential Diagnosis: COPD exacerbation, PNA Lab Data 11/30/24 20:49 11/30/24 20:49 Labs: Lab Results 11/30/24 11/30/24 11/30/24 Range/Units 20:32 20:49 21:24 WBC 18.7 H (3.6-11.0) Thou/mm3 RBC 3.81 L (4.00-5.20) Miln/mm3 Hgb 10.2 L (12.0-16.0) g/dL Hct 31.2 L (36.0-46.0) % MCV 82 (80-100) fL MCH 26.8 (25.0-35.0) pg MCHC 32.7 (31.0-37.0) g/dl RDW Std Deviation 40.5 (36.4-46.3) fL Plt Count 244 D (140-440) Thou/mm3 Neut % (Auto) 82 H (37-80) % Lymph % (Auto) 12 (10-50) % [place] % (Auto) 4 (0-12) % Eos % (Auto) 0 (0-10) % Baso % (Auto) 0 (0-2.5) % Neut # (Auto) 15.2 H (1.8-7.7) Thou/mm3 Lymph # (Auto) 2.3 (1.0-4.8) Thou/mm3 [place] # (Auto) 0.8 (0.0-0.8) Thou/mm3 Eos # (Auto) 0.1 (0.0-0.5) Thou/mm3 Baso # (Auto) 0.0 (0.0-0.2) Thou/mm3 Immature Gran # (Auto) 0.21 H (0.00-0.00) Thou/mm3 Absolute Nucleated RBC 0.00 (0.00-0.00) Thou/mm3 Immature Gran % 1 H (0-0) % Nucleated RBC % 0 (0) /100 WBC D-Dimer < 250 (<600) ng/mL VBG pH 7.32 L (7.33-7.66) VBG pCO2 57 H (36-56) mmHg VBG pO2 19 (15-58) mmHg VBG O2 Sat ([place]) 26 L (96-97) % VBG Base Excess 2 (-3-3) Sodium 138 (136-145) mMol/L Potassium 4.7 (3.4-5.1) mMol/L Chloride 106 (98-107) mMol/L Carbon Dioxide 24.2 (20.0-31.0) mMol/L Anion Gap 8 (7-16) BUN 25 H (9-23) mg/dL Creatinine 1.6 H (0.6-1.3) mg/dL Estim Creat Clear Calc 32.4 L (>60) mL/min eGFR 36 L (60 - ) See Note BUN/Creatinine Ratio 16 (12-20) Ratio Glucose 190 H (74-106) mg/dL Calculated Osmolality 285 (275-295) Calcium 9.1 (8.3-10.6) mg/dL Corrected Calcium 9.3 (8.5-10.1) mg/dL Magnesium 2.2 (1.6-2.6) mg/dL Total Bilirubin 0.3 (0.3-1.2) mg/dL AST 19 (0-34) U/L ALT 26 (10-49) U/L Alkaline Phosphatase 66 (46-116) U/L Troponin I < 0.020 (0.0-0.045) ng/mL B-Natriuretic Peptide 32 (0-100) pg/mL Total Protein 6.0 (5.7-8.2) gm/dL Albumin 3.7 (3.4-4.8) gm/dL Globulin 2.3 (2.3-3.5) gm/dL Albumin/Globulin Ratio 1.6 (1.2-2.2) Ur Collection Type Urine Color (Lt Yel-Yel) Urine Clarity (Clear/Hazy) Urine pH (5.0-7.0) Ur Specific [place] (1.001-1.035) Urine Protein (Neg - Trace) Urine Glucose (UA) (Negative) Urine Ketones (Negative) Urine Blood (Negative) Urine Nitrite (Negative) Urine Bilirubin (Negative) Urine Urobilinogen (Auto) (0.0-1.0) mg/dL Ur Leukocyte Esterase (Negative) Urine RBC (0-3) /hpf Urine WBC (0-5) /hpf Ur Squamous Epith Cells (0-5) /hpf Urine Bacteria (None) Hyaline Casts (0-1) /hpf 11/30/24 Range/Units 22:38 WBC (3.6-11.0) Thou/mm3 RBC (4.00-5.20) Miln/mm3 Hgb (12.0-16.0) g/dL Hct (36.0-46.0) % MCV (80-100) fL MCH (25.0-35.0) pg MCHC (31.0-37.0) g/dl RDW Std Deviation (36.4-46.3) fL Plt Count (140-440) Thou/mm3 Neut % (Auto) (37-80) % Lymph % (Auto) (10-50) % [place] % (Auto) (0-12) % Eos % (Auto) (0-10) % Baso % (Auto) (0-2.5) % Neut # (Auto) (1.8-7.7) Thou/mm3 Lymph # (Auto) (1.0-4.8) Thou/mm3 [place] # (Auto) (0.0-0.8) Thou/mm3 Eos # (Auto) (0.0-0.5) Thou/mm3 Baso # (Auto) (0.0-0.2) Thou/mm3 Immature Gran # (Auto) (0.00-0.00) Thou/mm3 Absolute Nucleated RBC (0.00-0.00) Thou/mm3 Immature Gran % (0-0) % Nucleated RBC % (0) /100 WBC D-Dimer (<600) ng/mL VBG pH (7.33-7.66) VBG pCO2 (36-56) mmHg VBG pO2 (15-58) mmHg VBG O2 Sat ([place]) (96-97) % VBG Base Excess (-3-3) Sodium (136-145) mMol/L Potassium (3.4-5.1) mMol/L Chloride (98-107) mMol/L Carbon Dioxide (20.0-31.0) mMol/L Anion Gap (7-16) BUN (9-23) mg/dL Creatinine (0.6-1.3) mg/dL Estim Creat Clear Calc (>60) mL/min eGFR (60 - ) See Note BUN/Creatinine Ratio (12-20) Ratio Glucose (74-106) mg/dL Calculated Osmolality (275-295) Calcium (8.3-10.6) mg/dL Corrected Calcium (8.5-10.1) mg/dL Magnesium (1.6-2.6) mg/dL Total Bilirubin (0.3-1.2) mg/dL AST (0-34) U/L ALT (10-49) U/L Alkaline Phosphatase (46-116) U/L Troponin I (0.0-0.045) ng/mL B-Natriuretic Peptide (0-100) pg/mL Total Protein (5.7-8.2) gm/dL Albumin (3.4-4.8) gm/dL Globulin (2.3-3.5) gm/dL Albumin/Globulin Ratio (1.2-2.2) Ur Collection Type Clean Catch Urine Color Yellow (Lt Yel-Yel) Urine Clarity Turbid A (Clear/Hazy) Urine pH 5.5 (5.0-7.0) Ur Specific [place] 1.015 (1.001-1.035) Urine Protein 1+ A (Neg - Trace) Urine Glucose (UA) Negative (Negative) Urine Ketones Negative (Negative) Urine Blood 3+ A (Negative) Urine Nitrite Positive (Negative) Urine Bilirubin Negative (Negative) Urine Urobilinogen (Auto) Negative (0.0-1.0) mg/dL Ur Leukocyte Esterase Positive (Negative) Urine RBC 7 H (0-3) /hpf Urine WBC 7 H (0-5) /hpf Ur Squamous Epith Cells 2 (0-5) /hpf Urine Bacteria 3+ A (None) Hyaline Casts < 1 (0-1) /hpf Discharge Plan Plan Patient Disposition: HOME (Self Care) Patient condition on transfer: Stable Prescriptions/Referrals Prescriptions/Med Rec: New levofloxacin 500 mg tablet 500 mg PO QDAY 4 Days Qty: 4 0RF prednisone 20 mg tablet 40 mg PO QDAY 4 Days Qty: 8 0RF Taper: Prednisone Taper 20 mg DAILY for 2 Days and 0 Hour 10 mg DAILY for 2 Days and 0 Hour 5 mg DAILY for 7 Days and 0 Hour No Action tramadol 50 mg tablet 50 mg PO Q8H PRN (Reason: pain) Qty: 20 0RF hydralazine 100 mg tablet 100 mg PO TID Qty: 90 0RF albuterol sulfate 90 mcg/actuation HFA aerosol inhaler 1 puff inhalation QID PRN (Reason: shortness of breath or wheezing) Qty: 8.5 0RF aspirin 81 mg tablet,delayed release (DR/EC) 81 mg PO QDAY Qty: 30 0RF buspirone 5 mg tablet 5 mg PO QDAY Qty: 30 0RF furosemide [Lasix] 20 mg tablet 20 mg PO QAM Qty: 30 0RF lactulose 10 gram/15 mL solution 10 g PO QDAY PRN (Reason: constipation) Qty: 3785 0RF lidocaine 5 % adhesive patch,medicated 1 patch topical QDAY Qty: 30 0RF Rx Instructions: leave on most painful area for up to 12 hrs spironolactone 50 mg tablet 50 mg PO QDAY Qty: 30 0RF Trelegy Ellipta 200-62.5-25 mcg blister with device 1 inh inhalation QDAY Qty: 60 0RF insulin glargine [Basaglar KwikPen U-100 Insulin] 100 unit/mL (3 mL) insulin pen 26 unit subcut QPM Qty: 15 0RF methadone 10 mg/5 mL Solution 100 mg PO QDAY nitroglycerin 0.4 mg Tablet, Sublingual 0.4 mg BUCCAL Q5MIN PRN (Reason: Chest Pain) ondansetron 4 mg tablet,disintegrating 4 mg PO Q8H PRN (Reason: nausea and vomiting) Qty: 10 0RF meclizine 50 mg tablet 50 mg PO BID PRN (Reason: dizziness or vertigo) Qty: 10 0RF Proair Digihaler 90 mcg/actuation aero powdr breath act w/sensor 2 inh inhalation Q6H PRN (Reason: shortness of breath or wheezing) Qty: 1 0RF prednisone 50 mg tablet 50 mg PO QDAY Qty: 7 0RF Referrals: Apolinar Tai MD [Primary Care Provider] - In 1 week Problem List Clinical Impression: COPD exacerbation Patient/Caregiver Discharge Instructions Education Materials: COPD: Coping with Mucus, COPD: Using Inhalers Additional Instructions: Discharge instructions from Dr. Robles: --No physical exertion for 3 days to help rest the lungs. ?No smoking or exposure to smoking or pets or dust or cold or humidity. --Levofloxacin 1 tab daily for 4 days to kill the germs causing the bronchitis and UTI. --Prednisone 40 mg daily for 4 days to help decrease the swelling in the airways. --Albuterol 2 puffs every 4-6 hours for 3 days to help keep the airways open. Then as needed for cough or shortness of breath. --See a private doctor next week for recheck. --Seek immediate medical care with worsening or with any concerns. Print Language: Nauruan Stand Alone Forms: Kay[facility]nn Award Info., Patient Portal Info Letter
--- NOTE | 2024-11-30 19:28 | XR_ITS ---
Examination: AP chest single view Technique one AP portable upright chest single view Indications: Shortness of breath today. Findings: Prominent vascular congestion with interstitial disease throughout the lungs Heart is normal in size Impression: Findings most consistent with heart failure although the heart is normal in size, clinical correlation advised
[2024-11-30] MEDS: ALBUTEROL/IPRATROPIUM (Duoneb) RT SOL 3 ML NEBU INH (20:09)
[2024-11-30] MEDS: AZITHROMYCIN 250 MG TABLET 500 MG PO (20:09)
[2024-11-30] MEDS: predniSONE 20 MG TABLET 40 MG PO (20:09)
[2024-11-30 20:13] VITALS: BP 157/79; PULSE 94; RESP 19; O2SAT 95
[2024-11-30 20:14] VITALS: PULSE 88; PULSE 92; RESP 17; RESP 25; O2SAT 100; O2SAT 96
[2024-11-30 21:06] LABS: Basophils % (Auto) 0 % (0-2.5); Eosinophils # (Auto) 0.1 Thou/mm3 (0.0-0.5); Eosinophils % (Auto) 0 % (0-10); Hematocrit 31.2 % (36.0-46.0); Hemoglobin 10.2 g/dL (12.0-16.0); Immature Granulocytes % (Auto) 1 % (0-0); Immature Granulocytes Auto 0.21 Thou/mm3 (0.00-0.00); Lymphocytes # (Auto) 2.3 Thou/mm3 (1.0-4.8); Lymphocytes % (Auto) 12 % (10-50); Mean Corpuscular HGB Conc 32.7 g/dl (31.0-37.0); Mean Corpuscular Hemoglobin 26.8 pg (25.0-35.0); Mean Corpuscular Volume 82 fL (80-100); Monocytes # (Auto) 0.8 Thou/mm3 (0.0-0.8); Monocytes % (Auto) 4 % (0-12); Neutrophils # (Auto) 15.2 Thou/mm3 (1.8-7.7); Neutrophils % (Auto) 82 % (37-80); Nucleated Red Blood Cell % 0 /100 WBC (0); Platelet Count 244 Thou/mm3 (140-440); RDW Standard Deviation 40.5 fL (36.4-46.3); Red Blood Count 3.81 Miln/mm3 (4.00-5.20); White Blood Count 18.7 Thou/mm3 (3.6-11.0)
[2024-11-30 21:22] LABS: D-Dimer < 250 ng/mL (<600)
[2024-11-30 21:23] LABS: Alanine Aminotransferase 26 U/L (10-49); Albumin, Serum 3.7 gm/dL (3.4-4.8); Albumin/Globulin Ratio 1.6 (1.2-2.2); Alkaline Phosphatase 66 U/L (46-116); Anion Gap 8 (7-16); Aspartate Amino Transferase 19 U/L (0-34); BUN/Creatinine Ratio 16 Ratio (12-20); Bilirubin,Total 0.3 mg/dL (0.3-1.2); Blood Urea Nitrogen 25 mg/dL (9-23); Calcium 9.1 mg/dL (8.3-10.6); Calcium (Corrected) 9.3 mg/dL (8.5-10.1); Carbon Dioxide 24.2 mMol/L (20.0-31.0); Chloride 106 mMol/L (98-107); Creatinine (Component) 1.6 mg/dL (0.6-1.3); Estimated Creatinine Clearance 32.4 mL/min (>60); Globulin 2.3 gm/dL (2.3-3.5); Glucose 190 mg/dL (74-106); Magnesium 2.2 mg/dL (1.6-2.6); Osmolality,Calculated 285 (275-295); Potassium 4.7 mMol/L (3.4-5.1); Sodium 138 mMol/L (136-145); Troponin I < 0.020 ng/mL (0.0-0.045); eGFR 36 See Note
[2024-11-30 21:53] LABS: B-Type Natriuretic Peptide 32 pg/mL (0-100)
[2024-11-30 22:14] LABS: Base Excess, Venous 2 (-3-3); O2 Saturation, Venous 26 % (96-97); PCO2, Venous 57 mmHg (36-56); PO2, Venous 19 mmHg (15-58); pH, Venous 7.32 (7.33-7.66)
[2024-11-30 22:22] VITALS: BP 149/90; PULSE 91; RESP 19; TEMP 37.8; O2SAT 95
[2024-11-30 23:31] LABS: Collection Type, Urine Clean Catch
[2024-11-30 23:41] LABS: Bacteria,Urine 3+; Bilirubin,Urine Negative (Negative); Blood,Urine 3+ (Negative); Clarity,Urine Turbid (Clear/Hazy); Color,Urine Yellow (Lt Yel-Yel); Glucose, Urine Negative (Negative); Hyaline Casts,Urine < 1 /hpf (0-1); Ketones,Urine Negative (Negative); Leukocyte Esterase,Urine Positive (Negative); Nitrite,Urine Positive (Negative); PH,Urine 5.5 (5.0-7.0); Protein,Urine 1+ (Neg - Trace); RBC,Urine 7 /hpf (0-3); Specific Gravity,Urine 1.015 (1.001-1.035); Squamous Epithelial Cell,Urine 2 /hpf (0-5); Urobilinogen,Urine Negative mg/dL (0.0-1.0); WBC,Urine 7 /hpf (0-5)
[2024-12-01] MEDS: LEVOFLOXACIN 250 MG TABLET 500 MG PO (00:16)
[2024-12-01 00:37] VITALS: BP 135/92; PULSE 83; RESP 19; TEMP 37.2; O2SAT 99
== END 2024-12-01 00:38 | disposition home or self-care (01) ==
PROVIDERS: Student in an Organized Health Care Education/Training Program; Emergency Provider Emergency Medicine; PCP Family Medicine
DX: J44.1 Chronic obstructive pulmonary disease with (acute) exacerbation (principal); I44.4 Left anterior fascicular block; I48.91 Unspecified atrial fibrillation; I11.9 Hypertensive heart disease without heart failure; Z99.81 Dependence on supplemental oxygen
CPT/HCPCS: 36415; 36600; 71045; 80053; 81001; 82803; 83735; 83880; 84484; 85025; 85379; 87400; 87634; 87811; 93005; 94640; 99283; A9270; J7512

== ENCOUNTER 2024-12-25 05:35 | Emergency (ER) | payer MEDICAID, SELFPAY ==
[2024-12-25 05:47] VITALS: BP 171/83; PULSE 84; PULSE 92; RESP 25; TEMP 36.8; O2SAT 96; O2SAT 98; BMI 22.4
[2024-12-25 06:02] VITALS: PULSE 84; RESP 18; O2SAT 96
--- NOTE | 2024-12-25 06:04 | PC.NURSE ---
PT BIB IMPERIAL FOR SOB @2AM PT TOOK ALBUTEROL TX WOKE UP 5AM STILL SOB, AMBULANCE ADMIN ALBUTEROL TX IN ROUTE X1.
--- NOTE | 2024-12-25 06:05 | PD.EDSOB ---
ED SOB =RME/HPI General Chief Complaint: Shortness of Breath/Dyspnea Stated Complaint: SOB Time Seen by Provider: 12/25/24 06:22 Arrival date/time: 12/25/24 05:35 RME / HPI RME / HPI Narrative: 64 year old female with history of atrial fibrillation, COPD, recurrent COPD exacerbations, hypertension, diabetes presents to the ED BIBA from home for complaint of shortness of breath. States she became acutely short of breath at 2 this morning also she states is associated with a severe headache pointing to her left side of her head. She states she fell a month ago accidentally when she was using her walker. But the headache only started this morning at 2 AM she is on aspirin. She is also dependent on home oxygen. Patient states she got 1 nebulizer treatment en route by EMS and had started when at home before they arrived stated she called EMS because she was too short of breath to wait for her nebulizer treatment. No fever vomiting diarrhea she denies any fever she does have a cough but no sore throat and she has had sputum for the last 2 days which she describes as being green. Related Data Home Medications ?Medication ?Instructions ?Recorded ?Confirmed methadone 10 mg/5 mL oral solution 100 mg PO QDAY 02/07/24 08/04/24 nitroglycerin 0.4 mg sublingual 0.4 mg buccal Q5MIN PRN Chest Pain 02/07/24 08/04/24 tablet Previous Rx's ?Medication ?Instructions ?Recorded tramadol 50 mg tablet 50 mg PO Q8H PRN pain #20 tabs 04/06/24 albuterol sulfate 90 mcg/actuation 1 puff inhalation QID PRN 08/06/24 aerosol inhaler shortness of breath or wheezing #8.5 grams aspirin 81 mg tablet,delayed 81 mg PO QDAY #30 tabs 08/06/24 release buspirone 5 mg tablet 5 mg PO QDAY #30 tabs 08/06/24 fluticasone fur. 200 mcg-umeclid 1 inh inhalation QDAY #60 ea 08/06/24 62.5 mcg-vilant 25 mcg inhalat.powder (Trelegy Ellipta) furosemide 20 mg tablet (Lasix) 20 mg PO QAM #30 tabs 08/06/24 hydralazine 100 mg tablet 100 mg PO TID #90 tabs 08/06/24 lactulose 10 gram/15 mL oral 10 g (15 mL) PO QDAY PRN 08/06/24 solution constipation #3,785 mL lidocaine 5 % topical patch 1 patch topical QDAY #30 ea 08/06/24 spironolactone 50 mg tablet 50 mg PO QDAY #30 tabs 08/06/24 insulin glargine 100 unit/mL (3 26 unit (0.26 mL) subcut QPM #15 mL 08/07/24 mL) subcutaneous pen (Basaglar KwikPen U-100 Insulin) meclizine 50 mg tablet 50 mg PO BID PRN dizziness or 10/27/24 vertigo #10 tabs ondansetron 4 mg disintegrating 4 mg PO Q8H PRN nausea and 10/27/24 tablet vomiting #10 tabs albuterol sulfate 90 mcg/actuation 2 inh inhalation Q6H PRN shortness 11/01/24 breath activated powder of breath or wheezing #1 ea inhaler,sensor (Proair Digihaler) prednisone 50 mg tablet 50 mg PO QDAY #7 tabs 11/01/24 azithromycin 250 mg tablet See Rx Instructions PO .COMPLEX #6 12/25/24 (Zithromax Z-Gurjit) tabs prednisone 20 mg tablet 40 mg (2 x 20 mg) PO QDAY Asthma 5 12/25/24 days #10 tabs Allergies Allergy/AdvReac Type Severity Reaction Status Date / Time codeine Allergy Severe RASH Verified 12/25/24 05:46 diphenhydramine HCl Allergy Severe Hives Verified 12/25/24 05:46 egg Allergy Severe Rash Verified 12/25/24 05:46 Penicillins Allergy Severe SWELLING, Verified 12/25/24 05:46 RESP DISTRESS pentazocine (From Evaristo) Allergy Severe Hives Verified 12/25/24 05:46 Review of Systems Review of Systems Narrative Review of Systems: Constitutional: DENIES; Fevers Eyes: DENIES; Loss of vision Head/Ear/Nose: DENIES; Loss of hearing Throat: DENIES; Dysphagia Cardiovascular: DENIES; Chest pain, dyspnea or syncope Respiratory: SEE HPI +Shortness of breath, cough with green phlegm Gastrointestinal: DENIES; Rectal bleeding or melena. Genitourinary: DENIES; Dysuria (painful or difficult urination) Musculoskeletal: DENIES; Arthralgia (pain in a joint),; Skin: DENIES; Rash Neurological: SEE HPI +headache. DENIES; Loss of function or movement Psychiatric: DENIES; recent major life stressor, emotional problem, illicit drug use or abuse Endocrinology: DENIES; Weight change Hematologic/Lymphatic: DENIES; Abnormal bruising Allergic/Immunologic: DENIES; Urticaria (hives) Past Medical History Past Medical History NEUROLOGIC: Positive Neurological Disorders, Cerebrovascular Accident and Meningitis CARDIAC: Positive Cardiac Disorders, Myocardial Infarction, Cardiac Arrhythmia, Atrial Fibrillation, Angina, Hypercholesterolemia, Congestive Heart Failure, Edema and Hypertension RESPIRATORY: Positive Chronic Obstructive Pulmonary Disease (COPD), Asthma, Bronchitis, Emphysema and Pneumonia MUSCULOSKELETAL: Positive Musculoskeletal Disorders, Arthritis and Osteoporosis ENT: Positive Cataracts and Blind (LEFT EYE) ENDOCRINE: Positive Endocrine Disorders and Diabetes Mellitus Type 2 HEMATOLOGIC: Positive Anemia PSYCHO/SOCIAL: Positive Recreational Drug Use (47 YEARS AGO), Depression and Anxiety OTHER HISTORY: Positive Hospitalization, Shingles and Falls Family History FAMILY HISTORY: Positive Family Cardiac Disorders Surgical History SURGICAL: Positive Eye Surgery, Tonsillectomy and Abdominal Surgery Social History SMOKING STATUS: Former smoker SECOND HAND EXPOSURE: No SUBSTANCE USE: former substance user, heroin and methamphetamine (Former drug use, states she quit 20 years ago; tested positive for methamphetamine 03/31/2023.) ED Exam Narrative Physical exam: Physical Exam: General: The vital signs were reviewed. Congested cough with rhonchus noises the patient is non-toxic, in no apparent distress and appears healthy with a patent airway, no respiratory distress and has no apparent circulatory problems. Head & Scalp: Normocephalic, atraumatic. Face: Appears normal and is without lesions, deformity. Ears: Left external pinna appears normal. Right external pinna appears normal. Eyes: The sclera is anicteric. No obvious photophobia. The Left and Right Orbit/Lid/Conjunctiva appears normal without swelling, discoloration or injection. Nose: The nose is without deformity, discharge or tenderness; Throat: Appears normal. The mucous membranes are pink and moist without exudates, redness or mass seen. The tongue appears normal. Neck: The neck is supple and no apparent mass or adenopathy. Chest: The chest wall is normal in size and symmetry and has no chest wall tenderness or crepitus. The patient displays normal ventilator effort without retractions, accessory muscle use and has adequate air movement bilaterally with bilateral wheezes and no rales. Cardiovascular: Regular rate and rhythm; No murmurs, rubs, or gallops; Gastrointestinal: The abdomen appears normal. No obvious hernias or mass. The abdomen is soft and benign, non-distended, with no pain, no guarding and no rebound tenderness. Bowel sounds are present and normal sounding. No CVA tenderness. Genitourinary: Back/Spine: Normal inspection no obvious pain to palpation Extremities/Musculoskeletal/lymphatic: The bilateral upper and lower extremities are warm. There is no evidence of arterial insufficiency. There is no evidence of venous insufficiency/edema. The patient spontaneously moves bilateral upper and lower extremities with no pain and no limitation of movement. There is no apparent, injury or trauma. Skin: The skin is warm, dry and intact. No rashes. No petechia. No purpura. No abnormal bruising. The color is appropriate with no cyanosis. Mental status/Psychiatric: Mental status is appropriate for age. The patient has no apparent delusions, visual hallucinations, no apparent audible hallucinations. The patient has no apparent suicidal thoughts/ideation and no apparent homicidal thoughts/ideation. Neurological: The patient is awake, alert, interactive, cordial, cooperative and is oriented to name and situation. The patient follows commands and answers historical question with no impairment. There is no visual disturbance apparent. The pupils are equal and reactive bilaterally with normal eye movements and no diplopia The bilateral upper and lower extremities have normal strength, normal range of motion and normal functioning. The gait, station and balance not tested due to acuity Course Course Course Narrative: chest xray ordered to help determine etiology of shortness of breath. Quality Measures none Orders Category Date Time Status Pain Management Physician Q4H START 00 Care 12/25/24 06:03 Completed Pain Management Physician STAT Care 12/25/24 06:23 Completed Continuous Pulse Oximetry STAT Care 12/25/24 06:23 Completed EKG (ED ONLY) *Do not use* NOW Care 12/25/24 06:23 Completed Insert IV NOW Care 12/25/24 06:23 Completed Miscellaneous Nursing Order NOW Care 12/25/24 06:23 Completed NPO STAT Care 12/25/24 06:[address] head/brain wo con Stat Exams 12/25/24 06:22 Completed EKG (ED Only) Stat Exams 12/25/24 06:23 Ordered XR chest 1V portable Stat Exams 12/25/24 06:23 Completed B-Type Natriuretic Peptide Stat Lab 12/25/24 07:42 Completed Blood Culture (Lab) Stat Lab 12/25/24 07:42 Received CBC Stat Lab 12/25/24 08:36 Completed Comprehensive Metabolic Panel Stat Lab 12/25/24 07:42 Completed Lactate (Lactic Acid) Stat Lab 12/25/24 07:42 Completed Magnesium Stat Lab 12/25/24 07:42 Completed Troponin I Stat Lab 12/25/24 07:42 Completed Venous Blood Gas Stat Lab 12/25/24 07:42 Completed ALBUTEROL RT 0.5ml [Proventil Rt 0.5ml] Med 12/25/24 06:22 Discontinued 10 mg INH X1 ONE Acetaminophen Tab [Tylenol ES Tab] Med 12/25/24 06:22 Discontinued 1,000 mg PO X1 ONE Ipratropium [place] Rt [place] [Atrovent Rt [place]anca] Med 12/25/24 06:22 Discontinued 0.5 mg INH X1 ONE MethylPREDNISolone.* [SoluMEDROL Inj] Med 12/25/24 06:22 Discontinued 125 mg IVP X1 ONE Ondansetron Inj [Zofran Inj] Med 12/25/24 12:27 Discontinued 4 mg IV X1 ONE Oxygen Delivery NOW RT 12/25/24 06:03 Completed Oxygen Delivery NOW RT 12/25/24 06:23 Completed Vital Signs Vital signs: Vital Signs Temperature 98.2 F 12/25/24 05:47 Pulse Rate 84 12/25/24 05:47 Respiratory Rate 25 H 12/25/24 05:47 Blood Pressure 171/83 H 12/25/24 05:47 Pulse Oximetry (%) 96 12/25/24 05:47 Oxygen Delivery Method Room Air 12/25/24 05:47 Oxygen Flow Rate 2 12/25/24 05:47 Shortness of Breath / Dyspnea MDM Narrative MDM Narrative:: Patient is 64-year-old with multiple medical problems who comes in with shortness of breath by EMS and got a nebulizer treatment and is in no distress on my evaluation at 0620 hrs. She is still wheezing so we will give her breathing treatments. She also complains of a severe headache I will get a CAT scan to hard to relate the onset of to this morning with a shortness of breath to the trauma month ago when she fell and hit her head. Medical workup was ordered and pending as of 0620 hrs. Medical workup reveals a chest x-ray read by myself which reveals no infiltrate no effusion. Normal heart pattern. There is some mild interstitial changes probably chronic CT of the head reveals no obvious blood tumor and no acute. Laboratory studies reveal a white count of 8.5 hemoglobin 9.7 hematocrit 30.1 platelet count is 239,000 VBG with a pH is 7.44 and a pCO2 of 44 sodium 141 potassium 4.4 chloride 108 CO2 26 BUN 25 creatinine 1.4 consistent with some mild prerenal azotemia. Lactic acid came back at 1.0. Magnesium was normal transaminases and bilirubin were normal. Troponin was negative. BNP was negative. Patient had wheezing throughout all lung mehta on my initial evaluation and continuous neb was given. She tolerated this well her lungs are actually much improved and she was observed for a good hour and a half after the completion of the nebs. She then got up and walked and normally walks 30 feet and did a little half lap around the ER with her O2 sats staying adequate while she was using her usual dose of home oxygen. I went back in the room to reevaluate her at 1220 hrs. and the patient was complaining of some nausea and states she was actually having some mild nausea before but now it is worse and she is got a barf bag in her hand. She is not complaining of chest pain she was not short of breath she says her lungs feel better. So we will get a give her Zofran and reevaluate her. At 1224 hours I walked in the room for reassessment, patient is sitting on the bed holding an emesis bag and complaining of nausea. States it began 3 hours ago and gradually worsening. At 1330 hours RN reports the patients nausea improved and tolerated po fluids. Note patient was able to ambulate her usual amount and demonstrated this in the ER and the time of discharge. The nausea seemed to resolve the etiology was unclear she was having no chest pain no worsening of her shortness of breath and she was advised to take her medicines as usual and get her prednisone and azithromycin filled. Patient data External records reviewed:: [facility] previous records (I reviewed hospitalization from 11/08/2024 through 11/11/2024 ) and EMS form Clinical information provided by:: patient Social determinants that could affect healthcare access:: substance use (hx of substance abuse currently on methadone ) Patient has the following chronic illnesses:: atrial fibrillation, COPD, recurrent COPD exacerbations, hypertension, diabetes How is presenting disease/condition affected by chronic disease/condition?: exacerbated by Evaluation data The following diagnostics were reviewed and interpreted by me:: lab results, radiology exam(s) and EKG tracing(s) (Sinus rhythm, rate 83, no STEMI ) Lab and/or radiology exams considered but not ordered:: None Interpretation Summary: Ordering Physician: Cj Gacria MD Date of Service: 12/25/24 Procedure(s): CT head/brain wo con Accession Number(s): [id number] cc: Apolinar Tai MD; Cj Garcia MD; Acosta Kumari MD~ Examination: CT brain head without contrast. 2-D sagittal coronal reconstructions Date and time of exam:December 25, 2024, 0840 hours Comparison November 01, 2024 INDICATIONS: Patient fell one month ago with injury to the head, headaches CTDI: vol (mGy):54 DLP: (mGycm):1099 Technique: Multiple CT axial sections of the brain have been obtained, 5 mm slice thickness. Contrast has not been administered. 2-D sagittal, coronal reconstructions have been obtained Low dose protocols were performed. One or more of the following dose reduction techniques were used; automated exposure control, adjustment of the mA and/or KV according to patient size, use of iterative reconstruction technique. Findings: No significant ventricular enlargement. Again noted small old infarct left basal ganglia Intra-axial or extra-axial hemorrhage density is not seen. No mass effect or midline shift Basal cisterns are not remarkable. Fourth ventricle is midline. Cranial vault intact. Chronic sinusitis Impression: Negative for acute hemorrhage, mass effect or midline shift Advise clinical correlation and follow-up accordingly Dictated By: Acosta Kumari MD Signed By: <Electronically signed by Acosta Kumari MD in OV> 12/25/24 0902 Ordering Physician: Cj Garcia MD Date of Service: 12/25/24 Procedure(s): XR chest 1V portable Accession Number(s): [id number] cc: Apolinar Tai MD; Cj Garcia MD; Acosta Kumari MD~ Examination: AP chest single view TECHNIQUE: AP portable upright chest single view Exam date and time: December 25, 2024 0709 hours Comparison November 30, 2024 INDICATIONS: Dyspnea coughing beginning 2 weeks ago. FINDINGS: Basilar bronchitis pattern. Normal heart size. No lobar pneumonia. Moderate osteopenia IMPRESSION: Basilar bronchitis pattern Dictated By: Acosta Kumari MD Signed By: <Electronically signed by Acosta Kumari MD in [place]> 12/25/24 1013 Medications / Prescriptions Medications or Prescriptions considered but not ordered:: None Medication administrations:: Medication Administration History Discontinued Medications Acetaminophen (Acetaminophen 500 Mg Tablet) 1,000 mg PO X1 ONE Stop: 12/25/24 06:23 Last Admin: 12/25/24 06:54 Dose: 1,000 mg Documented By: DEREJE Albuterol (Albuterol Rt 2.5 Mg/0.5 Ml Nebu) 10 mg INH X1 ONE Stop: 12/25/24 06:23 Last Admin: 12/25/24 07:03 Dose: 10 mg Documented By: HEATHER Ipratropium [place] (Ipratropium Rt 0.5 Mg/ 2.5 Ml Nebu) 0.5 mg INH X1 ONE Stop: 12/25/24 06:23 Last Admin: 12/25/24 07:04 Dose: 0.5 mg Documented By: HEATHER Methylprednisolone Sodium Succinate (Methylprednisolone Sod Succ 62.5 Mg/Ml 2ml Vial) 125 mg IVP X1 ONE Stop: 12/25/24 06:23 Last Admin: 12/25/24 09:20 Dose: 125 mg Documented By: RICK Ondansetron HCl (Ondansetron Inj 2 Mg/Ml Inj 2 Ml) 4 mg IV X1 ONE; Protocol Stop: 12/25/24 12:28 Last Admin: 12/25/24 12:49 Dose: 4 mg Documented By: ALIX See above Consultations Consultation(s) initiated? (list below): No Diagnosis Shortness of Breath Differential Diagnosis: acute exacerbation of chronic obstructive airways disease, congestive heart failure, community acquired pneumonia, asthma with exacerbation and other (Headache, ICH) Most likely diagnosis given after review of the tests above:: Acute exacerbation of COPD nausea obesity headache Admission Indicated Admission indicated?: not indicated Admission Request Was there a request for admission?: No Disposition Plan Disposition Plan: Discharge Discharge Attestation Discharge Attestation: The patient and all family members were given an opportunity to ask questions and understood the discharge instructions. Discharge instructions specifically effects, indications for sooner follow up or return to the emergency department, and the expected course of current diagnosis. Patient condition: Stable Critical Care Time Critical Care Time Critical Care Time: Yes Total Critical Care Time (min.): 45 Attestation: The high probability of sudden, clinically significant deterioration in the patient's condition required the highest level of my preparedness to intervene urgently. The services I provided to this patient were to treat and/or prevent clinically significant deterioration. Services included the following: chart data review, reviewing nursing notes and/or old charts, documentation time, protection consultant collaboration regarding findings and treatment options, medication orders and management, direct patient care, vital sign assessments and ordering, interpreting and reviewing diagnostic studies and lab tests. Aggregate critical care time includes only time during which I was engaged in work directly related to the patient's care, as described above, whether at bedside or elsewhere in the Emergency Department. It did not include time spent performing other reported procedures or the services of residents, students, nurses or physician assistants. Discharge Plan Plan Patient Disposition: HOME (Self Care) Prescriptions/Referrals Prescriptions/Med Rec: New prednisone 20 mg tablet 40 mg PO QDAY 5 Days Qty: 10 0RF azithromycin [Zithromax Z-Gurjit] 250 mg tablet See Rx Instructions .ROUTE .COMPLEX Qty: 6 0RF Rx Instructions: For 250 mg dose pack: take 500 mg today (day 1), then 250 mg for 4 days (days 2-5) No Action tramadol 50 mg tablet 50 mg PO Q8H PRN (Reason: pain) Qty: 20 0RF hydralazine 100 mg tablet 100 mg PO TID Qty: 90 0RF albuterol sulfate 90 mcg/actuation HFA aerosol inhaler 1 puff inhalation QID PRN (Reason: shortness of breath or wheezing) Qty: 8.5 0RF aspirin 81 mg tablet,delayed release (DR/EC) 81 mg PO QDAY Qty: 30 0RF buspirone 5 mg tablet 5 mg PO QDAY Qty: 30 0RF furosemide [Lasix] 20 mg tablet 20 mg PO QAM Qty: 30 0RF lactulose 10 gram/15 mL solution 10 g PO QDAY PRN (Reason: constipation) Qty: 3785 0RF lidocaine 5 % adhesive patch,medicated 1 patch topical QDAY Qty: 30 0RF Rx Instructions: leave on most painful area for up to 12 hrs spironolactone 50 mg tablet 50 mg PO QDAY Qty: 30 0RF Trelegy Ellipta 200-62.5-25 mcg blister with device 1 inh inhalation QDAY Qty: 60 0RF insulin glargine [Basaglar KwikPen U-100 Insulin] 100 unit/mL (3 mL) insulin pen 26 unit subcut QPM Qty: 15 0RF methadone 10 mg/5 mL Solution 100 mg PO QDAY nitroglycerin 0.4 mg Tablet, Sublingual 0.4 mg BUCCAL Q5MIN PRN (Reason: Chest Pain) ondansetron 4 mg tablet,disintegrating 4 mg PO Q8H PRN (Reason: nausea and vomiting) Qty: 10 0RF meclizine 50 mg tablet 50 mg PO BID PRN (Reason: dizziness or vertigo) Qty: 10 0RF Proair Digihaler 90 mcg/actuation aero powdr breath act w/sensor 2 inh inhalation Q6H PRN (Reason: shortness of breath or wheezing) Qty: 1 0RF prednisone 50 mg tablet 50 mg PO QDAY Qty: 7 0RF Referrals: Apolinar Tai MD [Primary Care Provider] - In 1 week Problem List Clinical Impression: Acute exacerbation of chronic obstructive pulmonary disease, Nausea, Obesity, Headache Patient/Caregiver Discharge Instructions Additional Instructions: Use your albuterol inhaler or nebulizer machine every 3 hours as needed for shortness of breath and cough. Make sure you get your prednisone filled and take that for the next 5 days as written. If you are getting worse please return for reevaluation. Because you have been having some greens sputum for the last couple days we gave you some azithromycin antibiotic to cover for any bacterial infection that may be ongoing. If you are getting worse in any way please return for reevaluation. Print Language: Latvian Stand Alone Forms: [facility] Award Info., Patient Portal Info Letter
--- NOTE | 2024-12-25 06:05 | PC.NURSE ---
PT COMPLAINING OF SOB, AND HEADACHE, HEADACHE SINCE 2AM PAIN 05/05. SOB AROUND 2 AM. PT IS ON 2L O2 AT HOME.
--- NOTE | 2024-12-25 06:22 | XR_ITS ---
Examination: CT brain head without contrast. 2-D sagittal coronal reconstructions Date and time of exam:December 25, 2024, 0840 hours Comparison November 01, 2024 INDICATIONS: Patient fell one month ago with injury to the head, headaches CTDI: vol (mGy):54 DLP: (mGycm):1099 Technique: Multiple CT axial sections of the brain have been obtained, 5 mm slice thickness. Contrast has not been administered. 2-D sagittal, coronal reconstructions have been obtained Low dose protocols were performed. One or more of the following dose reduction techniques were used; automated exposure control, adjustment of the mA and/or KV according to patient size, use of iterative reconstruction technique. Findings: No significant ventricular enlargement. Again noted small old infarct left basal ganglia Intra-axial or extra-axial hemorrhage density is not seen. No mass effect or midline shift Basal cisterns are not remarkable. Fourth ventricle is midline. Cranial vault intact. Chronic sinusitis Impression: Negative for acute hemorrhage, mass effect or midline shift Advise clinical correlation and follow-up accordingly
--- NOTE | 2024-12-25 06:23 | EKG_ITS ---
[facility] Test Date: 2024-12-25 Pat Name: DISHA ABRAHAM Department: Room: - Gender: Female [employer]er: : [id number] Requested By: Cj Garcia Order Number: [id number] Reading MD: Cj Garcia Measurements Intervals [place] Rate: 85 P: 71 OK: 159 QRS: -7 QRSD: 114 T: 71 QT: 376 QTc: 447 Interpretive Statements SINUS RHYTHM MODERATE INTRAVENTRICULAR CONDUCTION DELAY [110+ ms QRS DURATION] TYPE 3 BRUGADA PATTERN (NON-DIAGNOSTIC) [COVED/SADDLEBACK ST ELEVATION > 0.1mV IN 2 OF V1-3] Compared to ECG 11/30/2024 19:36:40 Intraventricular conduction delay now present ST (T wave) deviation now present Left anterior fascicular block no longer present /store/S0/[id number]/ecg/[id number].pdf
--- NOTE | 2024-12-25 06:23 | XR_ITS ---
Examination: AP chest single view TECHNIQUE: AP portable upright chest single view Exam date and time: December 25, 2024 0709 hours Comparison November 30, 2024 INDICATIONS: Dyspnea coughing beginning 2 weeks ago. FINDINGS: Basilar bronchitis pattern. Normal heart size. No lobar pneumonia. Moderate osteopenia IMPRESSION: Basilar bronchitis pattern
--- NOTE | 2024-12-25 06:45 | PC.NURSE ---
UNAB;E TO GET IV WILL ASK ONCOMING RN PER PT USUALLY NEED ULTRASOUND FOR IV
[2024-12-25] MEDS: ACETAMINOPHEN 500 MG TABLET 1000 MG PO (06:54)
[2024-12-25 07:03] VITALS: PULSE 78
[2024-12-25] MEDS: ALBUTEROL RT 2.5 MG/0.5 ML NEBU 10 MG INH (07:03)
[2024-12-25] MEDS: IPRATROPIUM RT 0.5 MG/ 2.5 ML NEBU INH (07:04)
[2024-12-25 07:05] VITALS: PULSE 78; RESP 17; O2SAT 100
[2024-12-25 07:59] LABS: Base Excess, Venous 4 (-3-3); O2 Saturation, Venous 89 % (96-97); PCO2, Venous 44 mmHg (36-56); PO2, Venous 50 mmHg (15-58); pH, Venous 7.44 (7.33-7.66)
[2024-12-25 08:28] LABS: Alanine Aminotransferase 17 U/L (10-49); Albumin, Serum 3.6 gm/dL (3.4-4.8); Albumin/Globulin Ratio 1.4 (1.2-2.2); Alkaline Phosphatase 55 U/L (46-116); Anion Gap 7 (7-16); Aspartate Amino Transferase 24 U/L (0-34); BUN/Creatinine Ratio 18 Ratio (12-20); Bilirubin,Total 0.4 mg/dL (0.3-1.2); Blood Urea Nitrogen 25 mg/dL (9-23); Calcium 9.2 mg/dL (8.3-10.6); Calcium (Corrected) 9.5 mg/dL (8.5-10.1); Carbon Dioxide 26.3 mMol/L (20.0-31.0); Chloride 108 mMol/L (98-107); Creatinine (Component) 1.4 mg/dL (0.6-1.3); Globulin 2.5 gm/dL (2.3-3.5); Glucose 96 mg/dL (74-106); Magnesium 2.6 mg/dL (1.6-2.6); Osmolality,Calculated 285 (275-295); Potassium 4.4 mMol/L (3.4-5.1); Sodium 141 mMol/L (136-145); Total Protein 6.1 gm/dL (5.7-8.2); Troponin I < 0.020 ng/mL (0.0-0.045); eGFR 42 See Note
[2024-12-25] MEDS: MethylPREDNISolone SOD SUCC 62.5 MG/ML 2ML VIAL 125 MG IVP (09:20)
[2024-12-25 09:25] LABS: Basophils % (Auto) 0 % (0-2.5); Eosinophils # (Auto) 0.2 Thou/mm3 (0.0-0.5); Eosinophils % (Auto) 3 % (0-10); Hematocrit 30.1 % (36.0-46.0); Hemoglobin 9.7 g/dL (12.0-16.0); Immature Granulocytes % (Auto) 1 % (0-0); Immature Granulocytes Auto 0.07 Thou/mm3 (0.00-0.00); Lymphocytes # (Auto) 1.8 Thou/mm3 (1.0-4.8); Lymphocytes % (Auto) 21 % (10-50); Mean Corpuscular HGB Conc 32.2 g/dl (31.0-37.0); Mean Corpuscular Hemoglobin 26.6 pg (25.0-35.0); Mean Corpuscular Volume 83 fL (80-100); Monocytes # (Auto) 0.7 Thou/mm3 (0.0-0.8); Monocytes % (Auto) 9 % (0-12); Neutrophils # (Auto) 5.7 Thou/mm3 (1.8-7.7); Neutrophils % (Auto) 66 % (37-80); Nucleated Red Blood Cell % 0 /100 WBC (0); Platelet Count 239 Thou/mm3 (140-440); RDW Standard Deviation 43.9 fL (36.4-46.3); Red Blood Count 3.65 Miln/mm3 (4.00-5.20); White Blood Count 8.5 Thou/mm3 (3.6-11.0)
[2024-12-25 09:42] LABS: B-Type Natriuretic Peptide 28 pg/mL (0-100)
[2024-12-25 11:16] VITALS: BP 171/83; PULSE 82; RESP 21; TEMP 36.8; O2SAT 91
--- NOTE | 2024-12-25 12:05 | PC.NURSE ---
Patient walked around nurses station with 02 at 2l/nc, with no c/o dizziness, patient states she feels better, Dr. Garcia made aware.
[2024-12-25 12:19] VITALS: PULSE 74; RESP 84; RESP 89; O2SAT 97
[2024-12-25] MEDS: ONDANSETRON INJ 2 MG/ML INJ 2 ML 4 MG IV (12:49)
== END 2024-12-25 13:50 | disposition home or self-care (01) ==
PROVIDERS: Emergency Provider Emergency Medicine; PCP Family Medicine
DX: J44.1 Chronic obstructive pulmonary disease with (acute) exacerbation (principal); E66.9 Obesity, unspecified; R51.9 Headache, unspecified; Z99.81 Dependence on supplemental oxygen; E11.9 Type 2 diabetes mellitus without complications; I48.91 Unspecified atrial fibrillation; I10 Essential (primary) hypertension
CPT/HCPCS: 36415; 70450; 71045; 80053; 81001; 82803; 83605; 83735; 83880; 84484; 85025; 87040; 93005; 94644; 96374; 96375; 99284; J2405; J2919; A9270

== ENCOUNTER 2025-01-01 16:55 | Inpatient (IN) | payer MEDICAID, SELFPAY ==
[2025-01-01] VITALS (15 sets, daily range): BP systolic 86–223; BP diastolic 69–139; PULSE 93–160; RESP 15–32; TEMP 36.4; O2SAT 88–100; BMI 25.0
--- NOTE | 2025-01-01 17:01 | EDNOTE_ITS ---
ED SOB =RME/HPI General Chief Complaint: Shortness of Breath/Dyspnea Stated Complaint: SOB Time Seen by Provider: 01/01/25 17:01 Arrival date/time: 01/01/25 16:55 RME / HPI RME / HPI Narrative: DR. POND MAIN ED EVALUATION: 64 year old female with past medical history significant for asthma, COPD, current tobacco smoker presents to the Emergency Department [facility] with complaint of shortness of breath. EMS gave x2 breathing treatments prior to arrival and patient still short of breath. Patient is tachycardic in the 160's. No chest pain or other symptoms reported at this time. Related Data Home Medications ?Medication ?Instructions ?Recorded ?Confirmed methadone 10 mg/5 mL oral solution 100 mg PO QDAY 01/2401/03/25 nitroglycerin 0.4 mg sublingual 0.4 mg buccal Q5MIN DC N Chest Pain 02/07/24 01/03/25 tablet apixaban 5 mg tablet (Eliquis) 5 mg PO Q12H 01/02/25 0 01/02/25 insulin glargine 100 unit/mL (3 26 unit subcut QAM 07/2001/03/25 mL) subcutaneous pen (Basaglar KwikPen U-100 Insulin) Previous Rx's ?Medication ?Instructions ?Recorded albuterol sulfate 90 mcg/actuation 1 puff inhalation Q ID PRN 08/06/24 aerosol inhaler shortness of breath or wheez ing #8.5 grams aspirin 81 mg tablet,delayed 81 mg PO QDAY #30 tabs release fluticasone fur. 200 mcg-umeclid 1 inh inhalation QDAY #60 ea 08/06/24 62.5 mcg-vilant 25 mcg inhalat.powder (Trelegy Ellipta) furosemide 20 mg tablet (Lasix) 20 mg PO QAM #30 tabs 08/06/24 hydralazine 100 mg tablet 100 mg PO TID #90 tabs 08/06 lactulose 10 gram/15 mL oral 10 g (15 mL) PO QDAY PRN 08/06/24 solution constipation #3,785 mL lidocaine 5 % topical patch 1 patch topical QDAY #30 e a 08/06/24 meclizine 50 mg tablet 50 mg PO BID PRN dizziness o r 10/27/24 vertigo #10 tabs ondansetron 4 mg disintegrating 4 mg PO Q8H PRN nausea and 10/27/24 tablet vomiting #10 tabs albuterol sulfate 90 mcg/actuation 2 inh inhalation Q6 H PRN shortness 11/01/24 breath activated powder of breath or wheezing #1 ea inhaler,sensor (Proair Digihaler) amlodipine 5 mg tablet 10 mg (2 x 5 mg) PO HS 14 da ys #28 01/04/25 tabs buspirone 5 mg tablet 10 mg (2 x 5 mg) PO QDAY 14 days 01/04/25 #28 tabs losartan 25 mg tablet 50 mg (2 x 25 mg) PO QDAY 14 days 01/04/25 #28 tabs methylprednisolone 4 mg tablets in 4 mg PO QAM COPD #2 1 tabs 01/04/25 a dose pack metoprolol succinate 25 mg 25 mg PO QDAY 14 days #14 t abs 01/04/25 tablet,extended release 24 hr Allergies Allergy/AdvReac Type Severity Reaction Status Date / Time codeine Allergy Severe RASH Verified 12/25/24 05:46 diphenhydramine HCl Allergy Severe Hives Verified 12/25/24 05:46 egg Allergy Severe Rash Verified 12/25/24 05:46 Penicillins Allergy Severe SWELLING, Verified 12/25/24 05:46 RESP DISTRESS pentazocine (From [place]) Allergy Severe Hives Verified 12/25/24 05:46 Review of Systems Review of Systems Systems Reviewed: All systems reviewed, normal except as documented Past Medical History Past Medical History NEUROLOGIC: Positive Neurological Disorders, Cerebrovascular Accident and Meningitis CARDIAC: Positive Cardiac Disorders, Myocardial Infarction, Cardiac Arrhythmia, Atrial Fibrillation, Angina, Hypercholesterolemia, Congestive Heart Failure, Edema and Hypertension RESPIRATORY: Positive Chronic Obstructive Pulmonary Disease (COPD), Asthma, Bronchitis, Emphysema and Pneumonia MUSCULOSKELETAL: Positive Musculoskeletal Disorders, Arthritis and Osteoporosis ENT: Positive Cataracts and Blind (LEFT EYE) ENDOCRINE: Positive Endocrine Disorders and Diabetes Mellitus Type 2 HEMATOLOGIC: Positive Anemia PSYCHO/SOCIAL: Positive Recreational Drug Use (47 YEARS AGO), Depression and Anxiety OTHER HISTORY: Positive Hospitalization, Shingles and Falls Family History FAMILY HISTORY: Positive Family Cardiac Disorders Surgical History SURGICAL: Positive Eye Surgery, Tonsillectomy and Abdominal Surgery Social History SMOKING STATUS: Current every day smoker SECOND HAND EXPOSURE: No SUBSTANCE USE: former substance user, heroin and methamphetamine (Former drug use, states she quit 20 years ago; tested positive for methamphetamine 03/31/2023.) ALCOHOL: Never ED Exam Narrative Physical exam: GENERAL APPEARANCE: alert and oriented x 4, well-developed, well-nourished, diaphoretic, respiratory distress VITALS: All vitals were reviewed and the pulse ox is 88% on room air, which is hypoxic according to my interpretation. HEENT: Normocephalic, atraumatic; pupils equal, round, reactive to light; EOMI; mucous membranes pink, moist; oropharynx clear NECK: Supple LUNGS: Tachypneic, poor air movement; no wheezes, no rales, no rhonchi HEART: Tachycardic, regular rhythm; normal S1, S2; no murmurs ABDOMEN: non distended; normal BS; soft, no tenderness, no guarding, no rebound; no masses, no organomegaly, no hernia BACK: no CVA tenderness EXTREMITIES: atraumatic; no edema NEUROLOGIC: awake; alert and oriented x4; cranial nerves II-XII grossly intact; no focal sensory or motor deficits PSYCHIATRIC: appropriate mood and affect SKIN: warm, dry, normal color; no rashes Course Quality Measures none Orders Category Date Time Status Patient Condition Routine Admission 01/01/25 19:58 Ordered COVID-19 Screening Questionnaire NOW Care 01/01/25 19:50 Active Conditioning Room Worker NOW Care 01/01/25 17:02 Active Decision to Admit X1 Care 01/01/25 19:50 Completed EKG (ED ONLY) *Do not use* NOW Care 01/01/25 17:02 Completed IV [Insert IV] NOW Care 01/01/25 17:30 Active Notify provider NEEDED Care 01/01/25 19:58 Active EKG (ED Only) Stat Exams 01/01/25 17:02 Draft XR chest 1V portable Stat Exams 01/01/25 17:02 Completed A1C [Glycohemoglobin w (eAG)] Stat Lab 01/01/25 17:14 Completed ABG [Arterial Blood Gas] Stat Lab 01/01/25 20:19 Completed B-Type Natriuretic Peptide Stat Lab 01/01/25 17:14 Completed Blood Culture (Lab) Stat Lab 01/01/25 20:05 Results CBC Stat Lab 01/01/25 17:14 Completed Comprehensive Metabolic Panel Stat Lab 01/01/25 17:14 Completed Creatinine,Random Urine Stat Lab 01/04/25 08:30 Completed Drug Screen,Urine Stat Lab 01/04/25 08:30 Completed Lipase Stat Lab 01/01/25 17:14 Completed Lipid Panel Stat Lab 01/01/25 17:14 Completed Magnesium Stat Lab 01/01/25 17:14 Completed Partial Thromboplastin Time Stat Lab 01/01/25 17:14 Completed Procalcitonin Stat Lab 01/01/25 17:14 Completed Protein Total, Random Urine Stat Lab 01/04/25 08:30 Completed Prothrombin Time with INR Stat Lab 01/01/25 17:14 Completed Troponin I Stat Lab 01/01/25 17:14 Completed ALBUTEROL RT 0.5ml [Proventil Rt 0.5ml] Med 01/01/25 17:02 Discontinued 10 mg INH X1 ONE Insulin Regular Med 01/01/25 18:43 Discontinued 10 unit IV X1 ONE Ipratropium [place] Rt Blanca [Atrovent Rt Blanca] Med 01/01/25 17:02 Discontinued 0.5 mg INH X1 ONE MethylPREDNISolone.* [SoluMEDROL Inj] Med 01/01/25 17:02 Discontinued 125 mg IVP X1 ONE Nitroglycerin Oint 2% [Nitro-paste Oint 2%] Med 01/01/25 17:07 Discontinued 1 inch TOP X1 ONE Sod Polystyrene Sulfon Susp [Kayexalate Susp] Med 01/01/25 19:28 Discontinued 30 gm PO X1 ONE Sodium Chloride Rt Blanca 0.9% [NS Rt Blanca 0.9%] Med 01/01/25 17:02 Discontinued 3 ml INH PRN PRN cefTRIAXone [Rocephin] 1,000 mg Med 01/01/25 19:26 Discontinued SODIUM CHLORIDE 0.9% (Popper) [Ns 0.9% (P)] 50 ml IV X1 Code Status Routine Oth 01/01/25 19:58 Ordered BiPAP / CPAP NOW RT 01/01/25 17:13 Completed Reevaluation(s) Reevaluation #1: Re-assessment at this time, patient looks better, still tachypneic and poor airway movement but improved. Time: 17:23 Vital Signs Vital signs: Vital Signs Temperature 97.5 F 01/01/25 16:58 Pulse Rate 158 H 01/01/25 16:58 Respiratory Rate 32 H 01/01/25 16:58 Blood Pressure 223/139 H 01/01/25 16:58 Pulse Oximetry (%) 88 L 01/01/25 16:58 Oxygen Delivery Method Oxy Mask 01/01/25 16:58 Oxygen Flow Rate 8 01/01/25 16:58 Procedures -ED Smoking Cessation Time Spent Discussing Smoking Cessation w/Patient (min): 3 Patient Acknowledges Need for Cessation: Yes Additional Comments: The patient was counseled as to the multiple risks to their health from continued use of tobacco products. It was explained that continuing to smoke may lead to multiple short and skilled nursing negative health consequences, including but not limited to mouth/esophageal/lung cancer, COPD, and heart disease. The patient states they understand these risks, and also understand the options and resources available to them to help them stop smoking. Nicotine replacement therapy, local hotlines, and local resources were discussed as viable options for helping them stop their tobacco use. The total time spent counseling the patient regarding tobacco cessation was 3 minutes. Shortness of Breath / Dyspnea MDM Narrative MDM Narrative:: I, Vale Atkinson, am scribing for and in the presence of Dr. Pond. Patient data External records reviewed:: EMS form Clinical information provided by:: patient and EMS Social determinants that could affect healthcare access:: other (specify) (current tobacco smoker; former substance abuse as well) Patient has the following chronic illnesses:: asthma, COPD, current tobacco smoker How is presenting disease/condition affected by chronic disease/condition?: exacerbated by Evaluation data The following diagnostics were reviewed and interpreted by me:: lab results, radiology exam(s) and EKG tracing(s) Lab and/or radiology exams considered but not ordered:: none Interpretation Summary: Pending work-up. Medications / Prescriptions Medications or Prescriptions considered but not ordered:: none Medication administrations:: Medication Administration History Acetaminophen (Acetaminophen 325 Mg Tablet) 650 mg PO Q6H PRN PRN Reason: Fever >100.3 or pain 1-3 Stop: 01/31/25 19:59 Last Admin: 01/05/25 10:50 Dose: 650 mg Documented By: MARYANN Amlodipine Besylate (Amlodipine Besylate 5 Mg Tablet) 10 mg PO HS KIP Stop: 02/03/25 20:59 Last Admin: 01/04/25 21:05 Dose: 10 mg Documented By: STEVEN Apixaban (Apixaban 2.5 Mg Tablet) 5 mg PO Q12H KIP Stop: 02/01/25 20:59 Last Admin: 01/05/25 08:24 Dose: 5 mg Documented By: Admin: 01/03/25 21:08 Dose: 5 mg Documented By: Admin: 01/03/25 08:40 Dose: 5 mg Documented By: Admin: 01/02/25 20:46 Dose: 5 mg Documented By: DORA Buspirone HCl (Buspirone Hcl 5 Mg Tablet) 10 mg PO QDAY KIP Stop: 02/02/25 08:59 Last Admin: 01/05/25 08:23 Dose: 10 mg Documented By: Admin: 01/04/25 08:15 Dose: 10 mg Documented By: Admin: 01/03/25 08:40 Dose: 10 mg Documented By: DAWSON Dextrose (Dextrose 50%-Water Inj 50 Ml Syringe) 25 ml IV Q15MIN PRN PRN Reason: BG 50-70 responsive npo pt Stop: 02/01/25 12:36 Dextrose (Dextrose 50%-Water Inj 50 Ml Syringe) 50 ml IV Q15MIN PRN PRN Reason: BG <50 OR BG <70 & pt unresponsive Stop: 02/01/25 12:36 Glucagon (Glucagon Inj 1 Mg Vial) 1 mg IM Q15MIN PRN PRN Reason: BG <70, and no IV access Hydralazine HCl (Hydralazine Hcl 25 Mg Tablet) 50 mg PO TID KIP Stop: 02/03/25 13:59 Last Admin: 01/05/25 13:34 Dose: 50 mg Documented By: Admin: 01/05/25 05:05 Dose: 50 mg Documented By: Admin: 01/04/25 21:05 Dose: 50 mg Documented By: Admin: 01/04/25 16:24 Dose: 50 mg Documented By: MARYANN Ceftriaxone Sodium/Dextrose (Rocephin/D5w 1gm Iv Premix) 1 gm in 50 mls @ 100 mls/hr IV QDAY KIP Stop: 01/09/25 08:59 Last Infusion: 01/05/25 09:15 Dose: Infused Documented By: Admin: 01/05/25 08:24 Dose: 100 mls/hr Documented By: Infusion: 01/04/25 17:35 Dose: Infused Documented By: Admin: 01/04/25 08:15 Dose: 100 mls/hr Documented By: Infusion: 01/04/25 07:27 Dose: Infused Documented By: Admin: 01/03/25 08:38 Dose: 100 mls/hr Documented By: Infusion: 01/02/25 09:14 Dose: Infused Documented By: Admin: 01/02/25 08:44 Dose: 100 mls/hr Documented By: JOSE Insulin Glargine (Insulin Glargine (Lantus) 5 Unit/0.05 Ml (Per 5 Units)) 22 unit SC [facility] Stop: 02/03/25 20:59 Last Admin: 01/04/25 21:08 Dose: 22 unit Documented By: STEVEN Co-signed By: DEVIKA Insulin Human Lispro (Insulin Lispro (Admelog) 1 Unit/0.01 Ml Unit) 0 unit SC [facility]; Protocol Stop: 02/01/25 20:59 Last Admin: 01/05/25 17:11 Dose: 4 unit Documented By: MARYANN Co-signed By: TRUNG Admin: 01/05/25 12:36 Dose: Not Given Documented By: MARYANN Non-Admin Reason: Patient Refused Admin: 01/05/25 07:34 Dose: Not Given Documented By: MARYANN Non-Admin Reason: Glucose, LOW Admin: 01/04/25 21:08 Dose: 1 unit Documented By: STEVEN Co-signed By: DEVIKA Admin: 01/04/25 17:15 Dose: 3 unit Documented By: MARYANN Co-signed By: ARIAN Admin: 01/04/25 11:59 Dose: Not Given Documented By: MARYANN Non-Admin Reason: Glucose, LOW Admin: 01/04/25 07:26 Dose: Not Given Documented By: MARYANN Non-Admin Reason: Glucose, LOW Admin: 01/03/25 21:07 Dose: 4 unit Documented By: DORA Co-signed By: Admin: 01/03/25 16:41 Dose: 3 unit Documented By: DAWSON Co-signed By: VITALY Admin: 01/03/25 11:45 Dose: Not Given Documented By: DAWSON Non-Admin Reason: Per Protocol Admin: 01/03/25 07:26 Dose: Not Given Documented By: DAWSON Non-Admin Reason: Per Protocol Admin: 01/02/25 20:43 Dose: 4 unit Documented By: ODRA Co-signed By: SHANTAL Ipratropium [place] (Ipratropium Rt 0.5 Mg/ 2.5 Ml Nebu) 0.5 mg INH Q4HR PRN PRN Reason: SHORTNESS OF BREATH Stop: 02/02/25 11:08 Last Admin: 01/05/25 03:21 Dose: 0.5 mg Documented By: STEVEN(2) Admin: 01/04/25 16:41 Dose: 0.5 mg Documented By: Admin: 01/04/25 08:32 Dose: 0.5 mg Documented By: SURESH Levalbuterol HCl (Levalbuterol Rt 0.31 Mg/3 Ml Nebu) 0.31 mg INH Q4H PRN PRN Reason: WHEEZING Stop: 02/02/25 11:08 Last Admin: 01/05/25 03:21 Dose: 0.31 mg Documented By: STEVEN(2) Admin: 01/04/25 16:41 Dose: 0.31 mg Documented By: Admin: 01/04/25 08:32 Dose: 0.31 mg Documented By: SURESH Losartan Potassium (Losartan Potassium 25 Mg Tablet) 100 mg PO QDAY [facility] Stop: 02/04/25 11:29 Last Admin: 01/05/25 13:35 Dose: 100 mg Documented By: MARYANN Methadone HCl (Methadone Hcl 10 Mg Tablet) 100 mg PO QDAY [facility] Stop: 01/07/25 08:59 Last Admin: 01/05/25 08:22 Dose: 100 mg Documented By: Admin: 01/04/25 08:18 Dose: 100 mg Documented By: Admin: 01/03/25 08:41 Dose: 100 mg Documented By: Admin: 01/02/25 08:42 Dose: 100 mg Documented By: JOSE Metoprolol Succinate (Metoprolol Succinate Xl 25 Mg Tabcr) 25 mg PO QDAY [facility] Stop: 02/03/25 08:59 Last Admin: 01/05/25 08:23 Dose: 25 mg Documented By: Admin: 01/04/25 08:16 Dose: 25 mg Documented By: MARYANN Ondansetron HCl (Ondansetron Inj 2 Mg/Ml Inj 2 Ml) 4 mg IV Q6H PRN; Protocol PRN Reason: NAUSEA OR VOMITING Stop: 01/31/25 19:59 Last Admin: 01/05/25 13:41 Dose: 4 mg Documented By: Admin: 01/04/25 17:39 Dose: 4 mg Documented By: Admin: 01/03/25 21:15 Dose: 4 mg Documented By: Admin: 01/03/25 12:36 Dose: 4 mg Documented By: Admin: 01/02/25 18:15 Dose: 4 mg Documented By: Admin: 01/02/25 08:43 Dose: 4 mg Documented By: JOSE Ondansetron HCl (Ondansetron Inj 2 Mg/Ml Inj 2 Ml) 4 mg IV Q8HR PRN; Protocol PRN Reason: NAUSEA OR VOMITING Stop: 02/04/25 16:05 Pantoprazole Sodium (Pantoprazole 40 Mg Tablet) 40 mg PO QDAY KIP Stop: 02/01/25 10:29 Last Admin: 01/05/25 08:23 Dose: 40 mg Documented By: Admin: 01/04/25 08:17 Dose: 40 mg Documented By: Admin: 01/03/25 08:41 Dose: 40 mg Documented By: Admin: 01/02/25 13:42 Dose: 40 mg Documented By: JOSE Polyethylene Glycol (Polyethylene Glycol 17 Gm Packet) 17 gm PO QDAY KIP Stop: 02/04/25 11:29 Last Admin: 01/05/25 12:33 Dose: Not Given Documented By: MARYANN Non-Admin Reason: Duplicate Medication on eMAR Prednisone (Prednisone 20 Mg Tablet) 40 mg PO QDAY KIP Stop: 02/04/25 08:59 Last Admin: 01/05/25 08:23 Dose: 40 mg Documented By: MARYANN Sennosides (Senna Tablet) 1 tab PO QDAY KIP; Protocol Stop: 02/05/25 08:59 Last Admin: 01/05/25 09:07 Dose: 1 tab Documented By: MARYANN Sodium Chloride (Sodium Chloride Rt Blanca 0.9% 3 Ml Nebu) 3 ml INH PRN PRN PRN Reason: SOLN Stop: 02/01/25 13:05 Discontinued Medications Al Hydrox/Mg Hydrox/Simethicone (Mg Hyd/Al Hyd/Mary (Maalox Reg) Susp 30 Ml Udc) 30 ml PO X1 ONE Stop: 01/05/25 09:03 Last Admin: 01/05/25 09:14 Dose: Not Given Documented By: MARYANN Non-Admin Reason: Cancelled by Provider Albuterol (Albuterol Rt 2.5 Mg/0.5 Ml Nebu) 10 mg INH X1 ONE Stop: 01/01/25 17:03 Last Admin: 01/01/25 17:16 Dose: 10 mg Documented By: ASHLEY Albuterol (Albuterol Rt 2.5 Mg/3 Ml Nebu) 2.5 mg INH X1 ONE Stop: 01/02/25 12:40 Albuterol (Albuterol Rt 2.5 Mg/0.5 Ml Nebu) 10 mg INH X1 ONE Stop: 01/02/25 12:42 Albuterol (Albuterol Rt 2.5 Mg/0.5 Ml Nebu) 10 mg INH X1 ONE Stop: 01/02/25 13:07 Last Admin: 01/02/25 13:13 Dose: 10 mg Documented By: TJ Albuterol/Ipratropium (Albuterol/Ipratropium (Duoneb) Rt Blanca 3 Ml Nebu) 3 ml INH Q4HRRT KIP Stop: 01/31/25 22:59 Last Admin: 01/03/25 10:09 Dose: 3 ml Documented By: Admin: 01/03/25 07:09 Dose: 3 ml Documented By: Admin: 01/03/25 02:54 Dose: 3 ml Documented By: Admin: 01/02/25 22:24 Dose: 3 ml Documented By: Admin: 01/02/25 18:30 Dose: 3 ml Documented By: Admin: 01/02/25 14:18 Dose: 3 ml Documented By: Admin: 01/02/25 10:08 Dose: 3 ml Documented By: Admin: 01/02/25 06:47 Dose: 3 ml Documented By: Admin: 01/02/25 02:41 Dose: 3 ml Documented By: Admin: 01/01/25 22:20 Dose: 3 ml Documented By: PEPITO Amlodipine Besylate (Amlodipine Besylate 5 Mg Tablet) 10 mg PO QDAY KIP Stop: 02/02/25 12:59 Last Admin: 01/03/25 12:17 Dose: 10 mg Documented By: TM Amlodipine Besylate (Amlodipine Besylate 5 Mg Tablet) 10 mg PO HS [facility] Stop: 02/03/25 20:59 Buspirone HCl (Buspirone Hcl 5 Mg Tablet) 10 mg PO X1 ONE Stop: 01/02/25 22:29 Last Admin: 01/02/25 22:37 Dose: 10 mg Documented By: DORA Calcium Chloride (Calcium Chloride 10% Inj 10 Ml Syrg) 10 ml IV X1 ONE Stop: 01/02/25 12:38 Last Admin: 01/02/25 14:33 Dose: 10 ml Documented By: JOSE Clonidine (Clonidine Hcl 0.1 Mg Tablet) 0.1 mg PO BID [facility] Stop: 02/02/25 08:59 Last Admin: 01/03/25 08:40 Dose: 0.1 mg Documented By: TM Dextrose (Dextrose 50%-Water Inj 50 Ml Syringe) 25 ml IV Q15MIN PRN PRN Reason: BG 50-70 responsive npo pt Stop: 01/31/25 20:17 Dextrose (Dextrose 50%-Water Inj 50 Ml Syringe) 50 ml IV X1 PRN PRN Reason: hypoglycemia Stop: 02/01/25 14:06 Last Admin: 01/02/25 14:32 Dose: 50 ml Documented By: JOSE Heparin Sodium (Porcine) (Heparin Sod Inj 5000 Unit/Ml Vial) 5,000 unit SC Q8HR [facility] Stop: 01/15/25 21:59 Last Admin: 01/02/25 14:33 Dose: 5,000 unit Documented By: JOSE Co-signed By: SIN Admin: 01/02/25 05:06 Dose: 5,000 unit Documented By: RC Co-signed By: PLACIDO Admin: 01/01/25 22:02 Dose: 5,000 unit Documented By: EF Co-signed By: EE Hydralazine HCl (Hydralazine Inj 20 Mg/Ml Vial) 10 mg IV X1 PRN PRN Reason: [id number] Stop: 01/31/25 20:16 Last Admin: 01/02/25 18:41 Dose: 10 mg Documented By: JOSE Hydralazine HCl (Hydralazine Hcl 25 Mg Tablet) 25 mg PO TID [facility] Stop: 02/01/25 08:29 Last Admin: 01/02/25 08:46 Dose: 25 mg Documented By: JOSE Hydralazine HCl (Hydralazine Hcl 25 Mg Tablet) 50 mg PO TID [facility] Stop: 02/01/25 13:59 Last Admin: 01/02/25 22:03 Dose: 50 mg Documented By: Admin: 01/02/25 14:33 Dose: 50 mg Documented By: JOSE Hydralazine HCl (Hydralazine Hcl 25 Mg Tablet) 50 mg PO TID KIP Stop: 02/01/25 13:59 Last Admin: 01/03/25 05:32 Dose: Not Given Documented By: WB Non-Admin Reason: Per Protocol Hydralazine HCl (Hydralazine Hcl 25 Mg Tablet) 50 mg PO X1 ONE Stop: 01/04/25 05:03 Last Admin: 01/04/25 05:07 Dose: 50 mg Documented By: SA(2) Hydralazine HCl (Hydralazine Hcl 25 Mg Tablet) 50 mg PO TID KIP Stop: 02/03/25 13:59 Hydralazine HCl (Hydralazine Hcl 25 Mg Tablet) 50 mg PO TID KIP Stop: 02/03/25 16:59 Ceftriaxone Sodium 1,000 mg/ (Sodium Chloride) 50 mls @ 100 mls/hr IV X1 ONE Stop: 01/01/25 19:55 Last Infusion: 01/01/25 21:17 Dose: Infused Documented By: Admin: 01/01/25 20:47 Dose: 100 mls/hr Documented By: EF Ceftriaxone Sodium/Dextrose (Rocephin/D5w 1gm Iv Premix) 50 mls @ 100 mls/hr IV QDAY KIP Stop: 01/08/25 20:07 Azithromycin 500 mg/ Sodium (Chloride) 250 mls @ 250 mls/hr IV HS KIP Stop: 01/09/25 20:59 Last Infusion: 01/04/25 07:53 Dose: Infused Documented By: Admin: 01/03/25 21:08 Dose: 250 mls/hr Documented By: Infusion: 01/02/25 21:46 Dose: Infused Documented By: Admin: 01/02/25 20:46 Dose: 250 mls/hr Documented By: WB Azithromycin 500 mg/ Sodium (Chloride) 250 mls @ 250 mls/hr IV X1 ONE Stop: 01/01/25 21:14 Last Infusion: 01/01/25 23:02 Dose: Infused Documented By: Admin: 01/01/25 22:02 Dose: 250 mls/hr Documented By: EF Sodium Chloride (Ns) 1,000 mls @ 75 mls/hr IV .[id number] KIP Stop: 01/31/25 20:16 Last Infusion: 01/04/25 07:55 Dose: Infused Documented By: Admin: 01/01/25 20:48 Dose: 75 mls/hr Documented By: JENNY Lactated Ringer's (Lactated Ringers) 1,000 mls @ 75 mls/hr IV .[id number] KIP Stop: 01/31/25 20:28 Magnesium Sulfate (Magnesium Sulfate Ivpb) 2 gm in 50 mls @ 25 mls/hr IV X1 ONE Stop: 01/02/25 10:08 Last Infusion: 01/04/25 07:54 Dose: Infused Documented By: Admin: 01/02/25 10:26 Dose: 25 mls/hr Documented By: JOSE Dextrose (D10w 1000 Ml) 1,000 mls @ 100 mls/hr IV .Q10H KIP Stop: 01/02/25 23:29 Dextrose (D10w) 500 mls @ 100 mls/hr IV .Q5H KIP Stop: 01/02/25 19:14 Last Infusion: 01/04/25 07:54 Dose: Infused Documented By: MARYANN Co-signed By: JESS Admin: 01/02/25 15:43 Dose: 100 mls/hr Documented By: JOSE Co-signed By: DELFINO Magnesium Sulfate (Magnesium Sulfate Ivpb) 2 gm in 50 mls @ 25 mls/hr IV X1 ONE Stop: 01/03/25 00:00 Last Infusion: 01/04/25 07:54 Dose: Infused Documented By: Admin: 01/02/25 22:27 Dose: 25 mls/hr Documented By: DORA Insulin Glargine (Insulin Glargine (Lantus) 5 Unit/0.05 Ml (Per 5 Units)) 20 unit SC QDAY KIP Stop: 02/01/25 08:59 Insulin Glargine (Insulin Glargine (Lantus) 5 Unit/0.05 Ml (Per 5 Units)) 26 unit SC QDAY KIP Stop: 02/01/25 08:59 Insulin Glargine (Insulin Glargine (Lantus) 5 Unit/0.05 Ml (Per 5 Units)) 26 unit SC HS KIP Stop: 02/01/25 20:59 Last Admin: 01/03/25 21:08 Dose: 26 unit Documented By: DORA Co-signed By: Admin: 01/02/25 20:44 Dose: 26 unit Documented By: WB Co-signed By: SHANTAL Insulin Human Lispro (Insulin Lispro (Admelog) 1 Unit/0.01 Ml Unit) 0 unit SC [facility]; Protocol Stop: 02/01/25 07:29 Last Admin: 01/02/25 18:12 Dose: 4 unit Documented By: LH Co-signed By: AUSTYN Admin: 01/02/25 12:43 Dose: Not Given Documented By: LH Non-Admin Reason: Per Protocol Admin: 01/02/25 08:45 Dose: 4 unit Documented By: LH Co-signed By: SIN Insulin Human Lispro (Insulin Lispro (Admelog) 1 Unit/0.01 Ml Unit) 10 unit SC X1 ONE Stop: 01/02/25 06:24 Last Admin: 01/02/25 06:34 Dose: 10 unit Documented By: SERG Co-signed By: DEVIKA Insulin Human Lispro (Insulin Lispro (Admelog) 1 Unit/0.01 Ml Unit) 4 unit SC [facility] Stop: 02/03/25 07:29 Last Admin: 01/04/25 07:26 Dose: Not Given Documented By: MARYANN Non-Admin Reason: Glucose, LOW Insulin Human Lispro (Insulin Lispro (Admelog) 1 Unit/0.01 Ml Unit) 2 unit SC [facility] Stop: 02/03/25 11:29 Last Admin: 01/05/25 07:34 Dose: Not Given Documented By: MARYANN Non-Admin Reason: Glucose, LOW Admin: 01/04/25 21:07 Dose: 2 unit Documented By: STEVEN Co-signed By: DEVIKA Admin: 01/04/25 17:14 Dose: 2 unit Documented By: MARYANN Co-signed By: ARIAN Admin: 01/04/25 11:59 Dose: Not Given Documented By: MARYANN Non-Admin Reason: Glucose, LOW Insulin Human Regular (Insulin Hum Regular 1 Unit/0.01 Ml (Per Unit)) 10 unit IV X1 ONE Stop: 01/01/25 18:44 Last Admin: 01/01/25 19:18 Dose: 10 unit Documented By: JENNY Co-signed By: DRAKE Insulin Human Regular (Insulin Hum Regular 1 Unit/0.01 Ml (Per Unit)) 5 unit SC X1 ONE Stop: 01/02/25 08:13 Last Admin: 01/02/25 08:44 Dose: 5 unit Documented By: JOSE Co-signed By: SIN Insulin Human Regular (Insulin Hum Regular 1 Unit/0.01 Ml (Per Unit)) 10 unit SC X1 ONE Stop: 01/02/25 10:21 Insulin Human Regular (Insulin Hum Regular 1 Unit/0.01 Ml (Per Unit)) 5 unit IV X1 ONE Stop: 01/02/25 12:38 Last Admin: 01/02/25 14:41 Dose: 5 unit Documented By: MR(2) Co-signed By: JOSE Insulin Human Regular (Insulin Hum Regular 1 Unit/0.01 Ml (Per Unit)) 10 unit SC X1 ONE Stop: 01/02/25 17:51 Last Admin: 01/02/25 18:13 Dose: 10 unit Documented By: JOSE Co-signed By: AUSTYN Ipratropium [place] (Ipratropium Rt 0.5 Mg/ 2.5 Ml Nebu) 0.5 mg INH X1 ONE Stop: 01/01/25 17:03 Last Admin: 01/01/25 17:16 Dose: 0.5 mg Documented By: ASHLEY Levalbuterol HCl (Levalbuterol Rt 0.31 Mg/3 Ml Nebu) 0.31 mg INH Q8HR PRN PRN Reason: WHEEZING Stop: 02/02/25 11:08 Lorazepam (Lorazepam 2 Mg/Ml Vial) 0.5 mg IVP X1 ONE Stop: 01/02/25 22:02 Last Admin: 01/02/25 22:07 Dose: 0.5 mg Documented By: DORA Lorazepam (Lorazepam 2 Mg/Ml Vial) Confirm Administered Dose 2 mg .ROUTE .STK- MED ONE Stop: 01/02/25 22:04 Last Admin: 01/02/25 22:34 Dose: Not Given Documented By: DORA Non-Admin Reason: Duplicate Medication on eMAR Losartan Potassium (Losartan Potassium 25 Mg Tablet) 50 mg PO QDAY KIP Stop: 02/02/25 08:59 Last Admin: 01/04/25 08:17 Dose: 50 mg Documented By: Admin: 01/03/25 08:41 Dose: 50 mg Documented By: DAWSON Methylprednisolone Sodium Succinate (Methylprednisolone Sod Succ 62.5 Mg/Ml 2ml Vial) 125 mg IVP X1 ONE Stop: 01/01/25 17:03 Last Admin: 01/01/25 17:07 Dose: 125 mg Documented By: Methylprednisolone Sodium Succinate (Methylprednisolone Sod Succ 40 Mg Vial) 40 mg IVP QDAY [facility] Stop: 01/09/25 08:59 Last Admin: 01/02/25 08:43 Dose: 40 mg Documented By: JOSE Nifedipine (Nifedipine 10 Mg Capsule) 10 mg PO TID [facility] Stop: 02/03/25 13:59 Nifedipine (Nifedipine 10 Mg Capsule) 10 mg PO TID [facility] Stop: 02/03/25 13:59 Nitroglycerin (Nitroglycerin Oint 2% 1 Inch Packet) 1 inch TOP X1 ONE Stop: 01/01/25 17:08 Last Admin: 01/01/25 17:14 Dose: 1 inch Documented By: Polyethylene Glycol (Polyethylene Glycol 17 Gm Packet) 17 gm PO X1 ONE Stop: 01/05/25 09:06 Last Admin: 01/05/25 09:14 Dose: 17 gm Documented By: MARYANN Prednisone (Prednisone 20 Mg Tablet) 40 mg PO QDAY [facility] Stop: 01/10/25 07:43 Last Admin: 01/03/25 08:40 Dose: 40 mg Documented By: DAWSON Prednisone (Prednisone 20 Mg Tablet) 30 mg PO QDAY [facility] Stop: 02/03/25 08:59 Last Admin: 01/04/25 08:17 Dose: 30 mg Documented By: MARYANN Sennosides (Senna Tablet) 1 tab PO QDAY PRN; Protocol PRN Reason: constipation Stop: 01/31/25 19:59 Last Admin: 01/04/25 05:07 Dose: 1 tab Documented By: (2) Sennosides (Senna Tablet) 1 tab PO X1 ONE; Protocol Stop: 01/05/25 11:30 Last Admin: 01/05/25 13:34 Dose: 1 tab Documented By: MARYANN Sodium Chloride (Sodium Chloride Rt [place] 0.9% 3 Ml Nebu) 3 ml INH PRN PRN PRN Reason: SOLN Stop: 01/31/25 17:01 Last Admin: 01/01/25 17:17 Dose: 3 ml Documented By: ASHLEY Sodium Chloride (Sodium Chloride Rt 10% 15 Ml Nebu) 5 ml INH X1 ONE Stop: 01/02/25 17:43 Last Admin: 01/02/25 18:31 Dose: 5 ml Documented By: GERTRUDE Sodium Polystyrene Sulfonate (Sod Polystyrene Sulfon Susp 15 Gm/60 Ml Btl) 30 gm PO X1 ONE Stop: 01/01/25 19:29 Last Admin: 01/01/25 20:03 Dose: 30 gm Documented By: EF Sodium Polystyrene Sulfonate (Sod Polystyrene Sulfon Susp 15 Gm/60 Ml Btl) 30 gm PO X1 ONE Stop: 01/02/25 13:26 Last Admin: 01/02/25 13:42 Dose: 30 gm Documented By: LH see above Consultations Consultation(s) initiated? (list below): No Diagnosis Shortness of Breath Differential Diagnosis: acute exacerbation of chronic obstructive airways disease, congestive heart failure, community acquired pneumonia, asthma with exacerbation and pulmonary embolism Most likely diagnosis given after review of the tests above:: No official diagnoses at this time, still pending diagnostic tests. Patient signout to the shift coordinator provider. Admission Indicated Admission indicated?: not indicated Explain why admission is indicated or not indicated:: No final disposition plan at this time, still pending diagnostic tests. Patient signout to the shift coordinator provider. Admission Request Was there a request for admission?: No Disposition Plan Disposition Plan: other (specify) (Patient signout to the shift coordinator provider, pending work-up and final disposition. ) Discharge Plan Plan Patient Disposition: Admit Acute Care w/in Hospital Patient condition on transfer: Stable Problem List Clinical Impression: Acute respiratory failure with hypoxia, COPD exacerbation, Hypertensive urgency, THEO (acute kidney injury), Hyperkalemia
--- NOTE | 2025-01-01 17:02 | EKG_ITS ---
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
--- NOTE | 2025-01-01 17:02 | XR_ITS ---
Examination: AP chest single view Technique: AP sitting portable chest single view Exam date and time: January 01, 2025 1710 hrs. Indications: Chest pain difficulty breathing today. Findings: Normal heart size Mild vascular congestion. No lobar pneumonia or pulmonary edema Impression: Mild vascular congestion
--- NOTE | 2025-01-01 17:05 | PC.NURSE ---
BIPAP PLACED AT THIS TIME BY RT. 100% FI02
[2025-01-01] MEDS: MethylPREDNISolone SOD SUCC 62.5 MG/ML 2ML VIAL 125 MG IVP (17:07)
--- NOTE | 2025-01-01 17:10 | PC.NURSE ---
X-RAY AT BEDSIDE
[2025-01-01] MEDS: NITROGLYCERIN OINT 2% 1 INCH PACKET TOP (17:14)
[2025-01-01] MEDS: ALBUTEROL RT 2.5 MG/0.5 ML NEBU 10 MG INH (17:16)
[2025-01-01] MEDS: IPRATROPIUM RT 0.5 MG/ 2.5 ML NEBU INH (17:16)
[2025-01-01] MEDS: SODIUM CHLORIDE RT SOL 0.9% 3 ML NEBU INH (17:17)
[2025-01-01 17:42] LABS: Basophils # (Auto) 0.1 Thou/mm3 (0.0-0.2); Basophils % (Auto) 0 % (0-2.5); Eosinophils % (Auto) 0 % (0-10); Hematocrit 32.1 % (36.0-46.0); Hemoglobin 10.4 g/dL (12.0-16.0); Immature Granulocytes % (Auto) 4 % (0-0); Immature Granulocytes Auto 1.09 Thou/mm3 (0.00-0.00); Lymphocytes # (Auto) 2.9 Thou/mm3 (1.0-4.8); Lymphocytes % (Auto) 11 % (10-50); Mean Corpuscular HGB Conc 32.4 g/dl (31.0-37.0); Mean Corpuscular Hemoglobin 26.8 pg (25.0-35.0); Mean Corpuscular Volume 83 fL (80-100); Monocytes # (Auto) 1.2 Thou/mm3 (0.0-0.8); Monocytes % (Auto) 5 % (0-12); Neutrophils # (Auto) 20.2 Thou/mm3 (1.8-7.7); Neutrophils % (Auto) 80 % (37-80); Nucleated Red Blood Cell % 0 /100 WBC (0); Platelet Count 388 Thou/mm3 (140-440); Red Blood Count 3.88 Miln/mm3 (4.00-5.20); White Blood Count 25.4 Thou/mm3 (3.6-11.0)
[2025-01-01 17:58] LABS: Partial Thromboplastin Time 21.6 Seconds (22.0-36.0); Prothrombin Time 10.8 Seconds (9.0-12.2)
[2025-01-01 18:11] LABS: B-Type Natriuretic Peptide 67 pg/mL (0-100)
--- NOTE | 2025-01-01 18:13 | PC.NURSE ---
PT'S BP DROPPED TO 86/69. NITRO PASTE REMOVED PER DOCTORS ORDERS
[2025-01-01 18:24] LABS: Alanine Aminotransferase 17 U/L (10-49); Albumin, Serum 4.4 gm/dL (3.4-4.8); Albumin/Globulin Ratio 1.6 (1.2-2.2); Alkaline Phosphatase 66 U/L (46-116); Anion Gap 9 (7-16); Aspartate Amino Transferase 20 U/L (0-34); BUN/Creatinine Ratio 18 Ratio (12-20); Bilirubin,Total 0.3 mg/dL (0.3-1.2); Blood Urea Nitrogen 34 mg/dL (9-23); Calcium 9.7 mg/dL (8.3-10.6); Calcium (Corrected) 9.7 mg/dL (8.5-10.1); Carbon Dioxide 21.6 mMol/L (20.0-31.0); Chloride 105 mMol/L (98-107); Creatinine (Component) 1.9 mg/dL (0.6-1.3); Estimated Creatinine Clearance 27.3 mL/min (>60); Globulin 2.7 gm/dL (2.3-3.5); Lipase 33 U/L (12-53); Magnesium 1.8 mg/dL (1.6-2.6); Osmolality,Calculated 299 (275-295); Potassium 5.9 mMol/L (3.4-5.1); Sodium 136 mMol/L (136-145); Total Protein 7.1 gm/dL (5.7-8.2); Troponin I < 0.020 ng/mL (0.0-0.045); eGFR 29 See Note
--- NOTE | 2025-01-01 18:24 | PD.EDADDENDU ---
Emergency Room Addendum Addendum Narrative: I took over the care from Dr. CAST at 6 PM on 01/02/2025, see her notes for complete H&P and ED course. Diagnoses include: Acute respiratory failure with hypoxia, COPD exacerbation, THEO, hyperkalemia, hypertensive urgency I discussed the case with our hospitalist. About the presentation and exam and diagnostics and treatments here. And need of further care in the hospital. Will accept the patient. Augie Robles MD
[2025-01-01 18:36] LABS: Glucose 460 mg/dL (74-106)
[2025-01-01] MEDS: INSULIN HUM REGULAR 1 UNIT/0.01 ML (PER UNIT) 10 UNIT IV (19:18)
--- NOTE | 2025-01-01 19:42 | EVENTNT_ITS ---
Documentation for date of: 01/01/25 Event Note Event Note: A 64-year-old female presented to the ER with shortness of breath. She reports chronic shortness of breath due to COPD, which worsened significantly today while she was stripping her floors. She denies chest pain and fever but endorses a mild cough with scant phlegm production. She also reports feeling tired and slightly weak. She uses home oxygen continuously. A friend called the ambulance. The patient has a history of COPD on home oxygen, recurrent COPD exacerbation, AFib, HTN, DM, Takotsubo cardiomyopathy, and substance abuse. Social history includes former tobacco use and no current alcohol or recreational drug use. She lives with her friend. She was last admitted in October for acute on-chronic hypoxic respiratory failure. Cardiac catheterization on 12/12/23 showed non- obstructive normal epicardial coronary arteries. In the ER, vital signs recorded as temp 97.5?F, HR 158 bpm, RR 32, BP 223/139 mmHg, and O2 sat 88% on Oxy Max. Lab revealed WBC 25.4, Hgb 10.4, Plt 388, Na 136, K 5.9, BUN 34, Cr 1.9 (previously 1.4 a week ago), glucose 460, and troponin <0.02. Chest X-ray demonstrated mild vascular congestion. EKG showed sinus tachycardia. The patient received steroid and Duoneb and was placed on BiPAP. She is going to be admitted. #Acute on chronic hypoxemic respiratory failure Assessment: Acute worsening of baseline dyspnea with RR 32, O2 sat 88% on OxyMax, requiring BiPAP; background of COPD on home O2, prior admissions for respiratory failure. Plan: - Continue BiPAP for ventilatory support - Get ABG - Monitor respiratory status closely - Adjust oxygen delivery to maintain target saturations (88?92%) - Initiate pulmonary hygiene measures #COPD exacerbation Assessment: Acute symptom worsening (dyspnea, cough with scant sputum), increased WBC 25.4, triggered by physical exertion; known COPD with recurrent exacerbations, currently on home oxygen. Plan: - Systemic corticosteroids - Inhaled bronchodilators - Monitor for sputum production and consider sputum culture - Empiric antibiotics #HTN urgency Assessment: Severe hypertension (223/139 mmHg) without end-organ damage; no chest pain or neurologic deficits. Plan: - Initiate antihypertensive therapy - Monitor BP closely, avoid rapid BP reduction - Reassess home medications for titration prior to discharge #THEO with hyperkalemia Assessment: Creatinine up to 1.9 from 1.4 one week prior, BUN 34, K 5.9; likely multifactorial (dehydration, possible nephrotoxic exposure, cardiorenal). Plan: - Monitor renal function daily - Initiate IV fluids - Address hyperkalemia with potassium binders - Nephrology consult if worsening #Leukocytosis Assessment: WBC 25.4 without fever; likely reactive in setting of COPD exacerbation and possible stress response, but infection cannot be ruled out. Plan: - Monitor for infectious signs - Check procalcitonin - Empiric antibiotics - Repeat CBC AM #DM Assessment: Poor glycemic control (glucose 460), unknown HbA1c, stress hyperglycemia possible. Plan: - Initiate basal-bolus insulin regimen with correctional scale - Monitor blood glucose ACHS - Order HbA1c to assess chronic glycemic control - Check urine [id number]-fhhalhpqkt ratio to screen for diabetic kidney disease - Consider addition of SGLT2 inhibitor or GLP-1 receptor agonist if renal function allows, for glycemic and ASCVD benefit (outpatient initiation preferred once stable) #A-Fib Assessment: No current evidence of AFib (sinus rhythm on EKG), no documented recurrence in past year. Plan: - Not on AC at this moment - Continue monitoring with telemetry - Maintain rate control strategy if AFib recurs - Outpatient cardiology follow-up #Takotsubo cardiomyopathy Assessment: History of Takotsubo with normal coronaries on 12/12/23; currently hemodynamically stable, no chest pain or elevated troponin. Plan: - Continue standard HF precautions - Outpatient cardiology follow-up #Substance abuse Assessment: On methadone, no current use of alcohol or recreational drugs; history of substance use. Plan: - Continue methadone maintenance
[2025-01-01 19:50] LABS: Cardiac Risk Estimate 3.3 RATIO (3.7-5.6); Cholesterol 176 mg/dL (132-200); HDL Cholesterol 53 mg/dL (40-60); LDL Cholesterol,Calculated 88 mg/dL (0-130); Triglycerides 177 mg/dL (30-150)
[2025-01-01 19:56] LABS: Procalcitonin 0.09 ng/ml (0.0-0.49)
[2025-01-01 19:57] LABS: Glucose Estimated Average 169 mg/dL (80-131); Hemoglobin A1C 7.5 % Hgb (4.8-6.0)
[2025-01-01] MEDS: SOD POLYSTYRENE SULFON SUSP 15 GM/60 ML BTL 30 GM PO (20:03)
--- NOTE | 2025-01-01 20:08 | EKG_ITS ---
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
--- NOTE | 2025-01-01 20:18 | ESHP_ITS ---
Documentation for date of: 01/01/25 [facility] History of Present Illness Chief complaint: shortness of breath History of present illness: The patient is a 64-year-old female with a previous medical history of COPD on 2 L at home, often admissions for COPD exacerbations, A-fib, hypertension, type 2 diabetes mellitus, history of Takotsubo cardiomyopathy and substance abuse who was brought by the ambulance to the ED on 01/01/2025. She reported that she started to feel weak and increased shortness of breath approximately few days ago, which significantly increased today during physical exertion. She denies fever, chills, reports dry cough with minimal phlegm. ED course: She was afebrile 97.5, blood pressure 223/139, heart rate 158, saturation was 88% on 8 L oxy mask. Labs reviewed WBC 25.4, hemoglobin 10.4, hematocrit 32.1, potassium 5.9, BUN 34, creatinine 1.9, EGFR 29, glucose 460, hemoglobin A1c 7.5, calculated osmolality 299. Chest x-ray showed mild vascular congestion, negative for lobar pneumonia or pulmonary edema. In the ED she received methylprednisolone 125 mg, albuterol and ipratropium inhalation, nitroglycerin paste and 10 units of insulin. She was started on BiPAP with settings IPAP 10, EPAP of 5, FiO2 80%. Social history: Patient is a former smoker, denies alcohol or drug use recently. Medications: Med rec is pending Patient is going to be admitted due to acute hypoxic respiratory failure due to COPD exacerbation. Review of Systems Review of Systems Systems Reviewed: All systems reviewed, normal except as documented Past Medical History Past Medical History NEUROLOGIC: Positive Neurological Disorders, Cerebrovascular Accident and Meningitis CARDIAC: Positive Cardiac Disorders, Myocardial Infarction, Cardiac Arrhythmia, Atrial Fibrillation, Angina, Hypercholesterolemia, Congestive Heart Failure, Edema and Hypertension RESPIRATORY: Positive Chronic Obstructive Pulmonary Disease (COPD), Asthma, Bronchitis, Emphysema and Pneumonia MUSCULOSKELETAL: Positive Musculoskeletal Disorders, Arthritis and Osteoporosis ENT: Positive Cataracts and Blind (LEFT EYE) ENDOCRINE: Positive Endocrine Disorders and Diabetes Mellitus Type 2 HEMATOLOGIC: Positive Anemia PSYCHO/SOCIAL: Positive Recreational Drug Use (47 YEARS AGO), Depression and Anxiety OTHER HISTORY: Positive Hospitalization, Shingles and Falls Family History FAMILY HISTORY: Positive Family Cardiac Disorders Surgical History SURGICAL: Positive Eye Surgery, Tonsillectomy and Abdominal Surgery Social History SMOKING STATUS: Current every day smoker SECOND HAND EXPOSURE: No SUBSTANCE USE: former substance user, heroin and methamphetamine (Former drug use, states she quit 20 years ago; tested positive for methamphetamine 03/31/2023.) ALCOHOL: Never Exam Vital Signs Temp Pulse Resp BP Pulse Ox O2 Del Method O2 Flow Rate 97.5 F 112 H 15 116/74 100 BiPAP 8 01/01/25 16:58 01/01/25 20:09 01/01/25 20:09 01/01/25 19:06 01/01/25 20:09 01/01/25 19:06 01/01/25 16:58 FiO2 80 01/01/25 20:09 Narrative Exam Physical Exam General: Awake, resting in bed with BiPAP mask on. HEENT: Normocephalic, atraumatic, mucous membranes moist. Heart: Regular rate and rhythm, no murmurs. Lungs: Diffuse rales. Abdomen: Soft, nondistended, nontender, positive bowel sounds. ?No guarding or rebound tenderness. Neurologic: Alert and oriented x3, no gross neurological deficit, and patient able to move all 4 extremities. Extremities: No edema. Skin: No rash or ecchymoses. Results: Labs 01/02/25 04:20 01/02/25 04:20 Labs: Short CBC 01/01/25 Range/Units 17:14 WBC 25.4 H (3.6-11.0) Thou/mm3 Hgb 10.4 L (12.0-16.0) g/dL Hct 32.1 L (36.0-46.0) % Plt Count 388 D (140-440) Thou/mm3 BMP 01/01/25 17:14 Sodium 136 Potassium 5.9 H Chloride 105 Carbon Dioxide 21.6 BUN 34 H Creatinine 1.9 H Glucose 460 H* Calcium 9.7 Cardiac Enzymes 01/01/25 Range/Units 17:14 Troponin I < 0.020 (0.0-0.045) ng/mL Liver Function 01/01/25 Range/Units 17:14 Total Bilirubin 0.3 (0.3-1.2) mg/dL AST 20 (0-34) U/L ALT 17 (10-49) U/L Alkaline Phosphatase 66 (46-116) U/L Albumin 4.4 (3.4-4.8) gm/dL Quality Measures Quality Measures VTE prophylaxis Medications Home Medications and Allergies Home Medications ?Medication ?Instructions ?Recorded ?Confirmed ?Type methadone 10 mg/5 mL oral solution 100 mg PO QDAY 01/2408/04/24 History nitroglycerin 0.4 mg sublingual 0.4 mg buccal Q5MIN MN N Chest Pain 02/07/24 08/04/24 History tablet Allergies Allergy/AdvReac Type Severity Reaction Status Date / Time codeine Allergy Severe RASH Verified 12/25/24 05:46 diphenhydramine HCl Allergy Severe Hives Verified 12/25/24 05:46 egg Allergy Severe Rash Verified 12/25/24 05:46 Penicillins Allergy Severe SWELLING, Verified 12/25/24 05:46 RESP DISTRESS pentazocine (From [place]) Allergy Severe Hives Verified 12/25/24 05:46 Visit Medications Acetaminophen (Acetaminophen 325 Mg Tablet) 650 mg PO Q6H PRN PRN Reason: Fever >100.3 or pain 1-3 Stop: 01/31/25 19:59 Albuterol/Ipratropium (Albuterol/Ipratropium (Duoneb) Rt [place] 3 Ml Nebu) 3 ml INH Q4HRRT KIP Stop: 01/31/25 22:59 Heparin Sodium (Porcine) (Heparin Sod Inj 5000 Unit/Ml Vial) 5,000 unit SC Q8HR KIP Stop: 01/15/25 21:59 Hydralazine HCl (Hydralazine Inj 20 Mg/Ml Vial) 10 mg IV X1 PRN PRN Reason: sbp>160 Stop: 01/31/25 20:16 Azithromycin 500 mg/ Sodium (Chloride) 250 mls @ 250 mls/hr IV QDAY KIP Stop: 01/08/25 20:07 Azithromycin 500 mg/ Sodium (Chloride) 250 mls @ 250 mls/hr IV X1 ONE Stop: 01/01/25 21:14 Ceftriaxone Sodium/Dextrose (Rocephin/D5w 1gm Iv Premix) 1 gm in 50 mls @ 100 mls/hr IV QDAY KIP Stop: 01/09/25 08:59 Sodium Chloride (Ns) 1,000 mls @ 75 mls/hr IV .[id number] KIP Stop: 01/31/25 20:16 Methylprednisolone Sodium Succinate (Methylprednisolone Sod Succ 40 Mg Vial) 40 mg IVP QDAY KIP Stop: 01/09/25 08:59 Ondansetron HCl (Ondansetron Inj 2 Mg/Ml Inj 2 Ml) 4 mg IV Q6H PRN; Protocol PRN Reason: NAUSEA OR VOMITING Stop: 01/31/25 19:59 Sennosides (Senna Tablet) 1 tab PO QDAY PRN; Protocol PRN Reason: constipation Stop: 01/31/25 19:59 Sodium Chloride (Sodium Chloride Rt [place] 0.9% 3 Ml Nebu) 3 ml INH PRN PRN PRN Reason: SOLN Stop: 01/31/25 17:01 Last Admin: 01/01/25 17:17 Dose: 3 ml Sodium Chloride (Sodium Chloride Rt [place] 0.9% 3 Ml Nebu) 3 ml INH PRN PRN PRN Reason: SOLN Stop: 01/31/25 17:01 Discontinued Medications Albuterol (Albuterol Rt 2.5 Mg/0.5 Ml Nebu) 10 mg INH X1 ONE Stop: 01/01/25 17:03 Last Admin: 01/01/25 17:16 Dose: 10 mg Ceftriaxone Sodium 1,000 mg/ (Sodium Chloride) 50 mls @ 100 mls/hr IV X1 ONE Stop: 01/01/25 19:55 Ceftriaxone Sodium/Dextrose (Rocephin/D5w 1gm Iv Premix) 50 mls @ 100 mls/hr IV QDAY KIP Stop: 01/08/25 20:07 Insulin Human Regular (Insulin Hum Regular 1 Unit/0.01 Ml (Per Unit)) 10 unit IV X1 ONE Stop: 01/01/25 18:44 Last Admin: 01/01/25 19:18 Dose: 10 unit Ipratropium [place] (Ipratropium Rt 0.5 Mg/ 2.5 Ml Nebu) 0.5 mg INH X1 ONE Stop: 01/01/25 17:03 Last Admin: 01/01/25 17:16 Dose: 0.5 mg Methylprednisolone Sodium Succinate (Methylprednisolone Sod Succ 62.5 Mg/Ml 2ml Vial) 125 mg IVP X1 ONE Stop: 01/01/25 17:03 Last Admin: 01/01/25 17:07 Dose: 125 mg Nitroglycerin (Nitroglycerin Oint 2% 1 Inch Packet) 1 inch TOP X1 ONE Stop: 01/01/25 17:08 Last Admin: 01/01/25 17:14 Dose: 1 inch Sodium Polystyrene Sulfonate (Sod Polystyrene Sulfon Susp 15 Gm/60 Ml Btl) 30 gm PO X1 ONE Stop: 01/01/25 19:29 Last Admin: 01/01/25 20:03 Dose: 30 gm Assessment & Plan Plan The patient is a 64-year-old female with a previous medical history of COPD on 2 L at home, often admissions for COPD exacerbations, A-fib, hypertension, type 2 diabetes mellitus, history of Takotsubo cardiomyopathy and substance abuse who was brought by the ambulance to the ED on 01/01/2025. Patient is going to be admitted due to acute hypoxic respiratory failure due to COPD exacerbation. #Acute hypoxic respiratory failure #COPD exacerbation Patient has history of frequent COPD exacerbation and uses oxygen constantly. This exacerbation was provoked by physical exertion. ? BiPAP, wean down as tolerated ? ABGs ordered ? Telemetry ? Goal oxygen saturation level 88-92% ? Chest PT ? DuoNebs inhalations every 4 hours ? Methylprednisolone 40 mg daily ? Ceftriaxone 1 g daily 01/01/2025?current ? Azithromycin 500 mg daily 01/01/2025?current #Hypertensive urgency Home blood pressure medications are lisinopril and metoprolol. Plan: ? Resume home blood pressure medications gradually ? Home lisinopril on hold for now due to hyperkalemia and THEO ? Gradually decrease blood pressure #History of Afib Patient reports taking Eliquis at home. On telemetry patient is tachycardic in the 100s. Previous EKGs showed sinus rhythm. Most likely paroxysmal. Plan: - EKG ordered - Consider resuming Eliquis renally adjusted #THEO #Hyperkalemia DDx: Prerenal due to dehydration versus intrarenal causes 01/01/2025 creatinine 1.9, potassium 5.9, GFR 29. Creatinine week earlier is 1.4. Plan: ? Monitor daily CMP ? Avoid nephrotoxic agents ? Renally dose medications ? Correct electrolyte abnormalities as necessary ? Normal saline at 75 mL/h ? Kayexalate 30 g once ? Urine creatinine and protein ordered #Type 2 diabetes A1c 7.5 Plan: ? Insulin sliding scale ? Insulin glargine 20 units SC #History of drug abuse Plan: ? Resumed home methadone ? Urine drug screen ordered Health maintenance: FEN: cardiac and renal diet DVT prophylaxis: heparin sc GI prophylaxis: none Dispo: telemetry CODE STATUS: Full Code Plan of care discussed with attending Dr. Zuleta. Nia Mg MD, PGY 1. Attending Provider Attestation/Addendum Pt was evaluated and plan formulated together with the housestaff team. I have reviewed the residents note above and agree with most of its content. Please refer to the residents note for additional details.
[2025-01-01 20:23] LABS: Base Excess -5 (-3-3); HCO3 22 mEq/L (20-26); Inspired Oxygen, FIO2 80 %; O2 Saturation 100 % (91-98); PCO2 46 mmHg (32.0-48.0); PO2 240 mmHg (83-108); pH, Arterial 7.29 (7.35-7.45)
[2025-01-01 20:26] LABS: Puncture Site Right Radial
[2025-01-01] MEDS: cefTRIAXone 1,000 MG in SODIUM CHLORIDE 0.9% (Popper) 50 ML 100 MG IV (20:47)
[2025-01-01] MEDS: SODIUM CHLORIDE 0.9% 1000 ML 1,000 ML 75 ML IV (20:48)
[2025-01-01] MEDS: AZITHROMYCIN INJ 500 MG in SODIUM CHLORIDE 0.9% 250 ML 250 ML 250 MG IV (22:02)
[2025-01-01] MEDS: HEPARIN SOD INJ 5000 UNIT/ML VIAL SC (22:02)
[2025-01-01] MEDS: ALBUTEROL/IPRATROPIUM (Duoneb) RT SOL 3 ML NEBU INH (22:20)
[2025-01-02] VITALS (23 sets, daily range): BP systolic 143–187; BP diastolic 69–102; PULSE 79–135; RESP 12–28; TEMP 36.1–36.6; O2SAT 89–100
[2025-01-02 01:15] LABS: Potassium 5.6 mMol/L (3.4-5.1)
[2025-01-02] MEDS: ALBUTEROL/IPRATROPIUM (Duoneb) RT SOL 3 ML NEBU INH ×6 (02:41→22:24)
[2025-01-02] MEDS: HEPARIN SOD INJ 5000 UNIT/ML VIAL SC ×2 (05:06→14:33)
[2025-01-02 05:13] LABS: Basophils % (Auto) 0 % (0-2.5); Eosinophils % (Auto) 0 % (0-10); Hematocrit 25.4 % (36.0-46.0); Immature Granulocytes % (Auto) 2 % (0-0); Immature Granulocytes Auto 0.41 Thou/mm3 (0.00-0.00); Lymphocytes # (Auto) 0.8 Thou/mm3 (1.0-4.8); Lymphocytes % (Auto) 3 % (10-50); Mean Corpuscular HGB Conc 31.9 g/dl (31.0-37.0); Mean Corpuscular Hemoglobin 26.7 pg (25.0-35.0); Mean Corpuscular Volume 84 fL (80-100); Monocytes # (Auto) 0.9 Thou/mm3 (0.0-0.8); Monocytes % (Auto) 4 % (0-12); Neutrophils # (Auto) 24.2 Thou/mm3 (1.8-7.7); Neutrophils % (Auto) 92 % (37-80); Nucleated Red Blood Cell % 0 /100 WBC (0); Platelet Count 247 Thou/mm3 (140-440); RDW Standard Deviation 48.6 fL (36.4-46.3); Red Blood Count 3.03 Miln/mm3 (4.00-5.20); White Blood Count 26.3 Thou/mm3 (3.6-11.0)
[2025-01-02 05:23] LABS: Hemoglobin 8.1 g/dL (12.0-16.0)
[2025-01-02 06:16] LABS: Alanine Aminotransferase 12 U/L (10-49); Albumin, Serum 3.4 gm/dL (3.4-4.8); Albumin/Globulin Ratio 1.5 (1.2-2.2); Alkaline Phosphatase 50 U/L (46-116); Anion Gap 13 (7-16); Aspartate Amino Transferase 13 U/L (0-34); BUN/Creatinine Ratio 19 Ratio (12-20); Bilirubin,Total 0.3 mg/dL (0.3-1.2); Blood Urea Nitrogen 36 mg/dL (9-23); Calcium 8.7 mg/dL (8.3-10.6); Calcium (Corrected) 9.2 mg/dL (8.5-10.1); Carbon Dioxide 18.9 mMol/L (20.0-31.0); Chloride 106 mMol/L (98-107); Creatinine (Component) 1.9 mg/dL (0.6-1.3); Estimated Creatinine Clearance 27.3 mL/min (>60); Globulin 2.3 gm/dL (2.3-3.5); Magnesium 1.8 mg/dL (1.6-2.6); Osmolality,Calculated 301 (275-295); Phosphorous 3.8 mg/dL (2.4-5.1); Potassium 5.4 mMol/L (3.4-5.1); Sodium 138 mMol/L (136-145); Total Protein 5.7 gm/dL (5.7-8.2); eGFR 29 See Note
[2025-01-02 06:18] LABS: Glucose 429 mg/dL (74-106)
[2025-01-02] MEDS: INSULIN LISPRO (AdmeLOG) 1 UNIT/0.01 ML UNIT 10 UNIT SC (06:34)
[2025-01-02] MEDS: METHADONE HCL 10 MG TABLET 100 MG PO (08:42)
[2025-01-02] MEDS: ONDANSETRON INJ 2 MG/ML INJ 2 ML 4 MG IV ×2 (08:43→18:15)
[2025-01-02] MEDS: INSULIN HUM REGULAR 1 UNIT/0.01 ML (PER UNIT) 5 UNIT SC (08:44)
[2025-01-02] MEDS: cefTRIAXone/D5w 1gm IV premix 1 GM/50 ML BAG IV (08:44)
[2025-01-02] MEDS: INSULIN LISPRO (AdmeLOG) 1 UNIT/0.01 ML UNIT SC ×3 (08:45→20:43)
[2025-01-02] MEDS: hydrALAZINE HCL 25 MG TABLET PO (08:46)
--- NOTE | 2025-01-02 10:01 | PC.SS ---
Christina Diaz is 64 year old female admitted for CHF Exacerbation. SS met with patient at bedside to complete initial assessment and to discuss discharge planning. Patient appeared to be alert and oriented. Patient confirmed demographic information she lives with a friend. Patient reports her son, Patria Diaz is her surrogate decision maker [phone] . Pt states prior to hospitalization she is able to complete all ADL?s independently,Patient utilizes a walker and wheelchair to assist with ambulation. Patient has O2, Pt confirmed she has portable O2 at home. Pts PCP is Dr. Apolinar Tai. Pharmacy of choice is [facility]. Patient reports she has advance directive in place. Patient will return home. Friends will provide transportation upon DC. DC Plan: Home Next of Kin: SonPatria [phone] PCP: Dr. Apolinar Tai
[2025-01-02] MEDS: Magnesium Sulfate 2 GM Ivpb 2 GM/50 ML BAG IV ×2 (10:26→22:27)
--- NOTE | 2025-01-02 11:27 | PC.SS ---
SS follow up note; Patient is on BiPAP. Pending Cultures and ABG.
[2025-01-02 11:49] LABS: Anion Gap 12 (7-16); BUN/Creatinine Ratio 24 Ratio (12-20); Blood Urea Nitrogen 39 mg/dL (9-23); Calcium 9.5 mg/dL (8.3-10.6); Calcium (Corrected) 9.5 mg/dL (8.5-10.1); Carbon Dioxide 21.2 mMol/L (20.0-31.0); Chloride 109 mMol/L (98-107); Creatinine (Component) 1.6 mg/dL (0.6-1.3); Estimated Creatinine Clearance 32.4 mL/min (>60); Glucose 138 mg/dL (74-106); Osmolality,Calculated 294 (275-295); Sodium 142 mMol/L (136-145); eGFR 36 See Note
[2025-01-02 11:51] LABS: Potassium 6.2 mMol/L (3.4-5.1)
--- NOTE | 2025-01-02 13:11 | ESPR_ITS ---
<Statement entered by Ashok Butterfield MD - 01/10/25 07:26> I reviewed above note and agree with findings and plans. I have also personally examined the patient with medicine team and went over assessment and plan with medical team including video production intern and resident physician. <Statement entered by Anna Urena MD - 01/02/25 15:39> Patient is 64-year-old female past medical history of COPD on home oxygen history of hypertension and hyperlipidemia, DM type II was admitted overnight due to acute hypoxic respiratory failure secondary to COPD exacerbation. Patient was seen and examined at bedside, patient received exacerbation treatment with steroids. Patient is on azithromycin and ceftriaxone will consider to discontinue Rocephin may be tomorrow, continue DuoNebs treatment which appears to be helping with her symptoms. CMP revealed hyperkalemia of 6.2, patient home medication is spironolactone, was held patient was given hyperkalemia protocol, will follow-up with repeat potassium level. Labs revealed hyperglycemia, patient was given multiple sc insulin, patient glucose level is very labile, and tends to be dropping very quickly. We will start home insulin, continue close monitor. Cultures are pending. Patient has resistant hypertension, home medication hydralazine, clonidine, lisinopril, holding lisinopril in the setting of THEO, will restart hydralazine and clonidine, continue close monitor blood pressure, resume home medication as she tolerates. #Acute hypoxic respiratory failure secondary to COPD exacerbation, continue DuoNebs, steroids, will consider switching IV methylprednisone to p.o., continue DuoNebs treatment, goal for O2 sats 88-92. #Hyperglycemia Home insulin, patient may need require more insulin as she is currently on steroids, will continue close monitor, adjust insulin regimen accordingly. #Hyperkalemia, could be secondary due to medication, holding spironolactone, patient was given hyperkalemia protocol, will follow-up with repeat potassium level. #Hypertension, Home medication will be resumed as she tolerates. I personally saw and examined the patient and discussed the assessment and plan with the entire medicine team, including my attending Dr. Butterfield, Anna Urena M.D. PGY-2 Disclaimer: Despite multiple revisions, due to the dictation software being used, the document bellow may not be free of grammatical errors including phonetic/typographic errors. However, this does not deter from our commitment to providing health care in the patient's best interest in mind. Documentation for date of: 01/02/25 Subjective Subjective Interval history: Patient was admitted overnight. Patient stated COPD exacerbation was triggered secondary to pulling out floorboards from her home and there was a lot of dust flying in the air. Patient stated she takes all first arrived medication as indicated. Patient denied any recent sick contacts patient denied any recent chills or fevers at home. Patient denied any hematuria, hematemesis or hemoptysis. Patient denied any hematochezia. Exam Vital Signs Temp Pulse Resp BP Pulse Ox O2 Del Method O2 Flow Rate 97.6 F 84 20 178/87 H 100 BiPAP 2 01/02/25 08:00 01/02/25 10:11 01/02/25 10:08 01/02/25 08:46 01/02/25 10:08 01/02/25 08:00 01/02/25 10:08 FiO2 30 01/02/25 06:47 Narrative Exam General Appearance: Alert & Oriented X3, well-nourished female who is lying in bed in no acute distress HEENT: Skull symmetrical and atraumatic. Conjunctivae pin and moist. Pupils equal, round, reactive to light and accommodation (PERRL). External ear without lesion or discharge. Straight, nares patient, mucosa pink, no discharge. No thyroid nodule appreciated. No cervical lymphadenopathy. Cardio: Normal Rate and Rhythm with S1 and S2 heart sounds. No murmurs or extra heart sounds auscultated. No bruits on carotid auscultation. No peripheral edema or cyanosis. Lungs: Symmetric with good expansion. Chest and back non-tender. Breath sounds vesicular with wheezing Abdomen: Non-tender, Non-distended, Normal Reactive Bowel Sounds Neuro: Alert, cooperative, oriented to person, place, and time. Speech clear. CN grossly intact. Upper motor strength 5/5 and Lower motor strength 5/5. Sensation intact. Objective Labs 01/02/25 04:20 01/02/25 16:29 Labs: Laboratory Results - last 24 hr 01/01/25 01/01/25 01/02/25 17:14 20:19 00:52 WBC 25.4 H RBC 3.88 L Hgb 10.4 L Hct 32.1 L MCV 83 MCH 26.8 MCHC 32.4 RDW Std Deviation 47.0 H Plt Count 388 D Neut % (Auto) 80 Lymph % (Auto) 11 Rock % (Auto) 5 Eos % (Auto) 0 Baso % (Auto) 0 Neut # (Auto) 20.2 H Lymph # (Auto) 2.9 Rock # (Auto) 1.2 H Eos # (Auto) 0.0 Baso # (Auto) 0.1 Immature Gran # (Auto) 1.09 H Absolute Nucleated RBC 0.00 Immature Gran % 4 H Nucleated RBC % 0 PT 10.8 INR 1.0 APTT 21.6 L Puncture Site Right Radial ABG pH 7.29 L ABG pCO2 46 ABG pO2 240 H ABG HCO3 22 ABG O2 Saturation 100 H ABG Base Excess -5 L FiO2 80 Sodium 136 Potassium 5.9 H 5.6 H Chloride 105 Carbon Dioxide 21.6 Anion Gap 9 BUN 34 H Creatinine 1.9 H Estim Creat Clear Calc 27.3 L eGFR 29 L BUN/Creatinine Ratio 18 Glucose 460 H* Estimated Ave Glu mg/dL 169 H Hemoglobin A1c 7.5 H Calculated Osmolality 299 H Calcium 9.7 Corrected Calcium 9.7 Phosphorus Magnesium 1.8 Total Bilirubin 0.3 AST 20 ALT 17 Alkaline Phosphatase 66 Troponin I < 0.020 B-Natriuretic Peptide 67 Total Protein 7.1 Albumin 4.4 Globulin 2.7 Albumin/Globulin Ratio 1.6 Triglycerides 177 H Cholesterol 176 LDL Cholesterol, Calc 88 HDL Cholesterol 53 Cholesterol/HDL Ratio 3.3 L Lipase 33 Procalcitonin 0.09 01/02/25 01/02/25 04:20 10:56 WBC 26.3 H RBC 3.03 L Hgb 8.1 L D Hct 25.4 L MCV 84 MCH 26.7 MCHC 31.9 RDW Std Deviation 48.6 H Plt Count 247 D Neut % (Auto) 92 H Lymph % (Auto) 3 L Rock % (Auto) 4 Eos % (Auto) 0 Baso % (Auto) 0 Neut # (Auto) 24.2 H Lymph # (Auto) 0.8 L Rock # (Auto) 0.9 H Eos # (Auto) 0.0 Baso # (Auto) 0.0 Immature Gran # (Auto) 0.41 H Absolute Nucleated RBC 0.00 Immature Gran % 2 H Nucleated RBC % 0 PT INR APTT Puncture Site ABG pH ABG pCO2 ABG pO2 ABG HCO3 ABG O2 Saturation ABG Base Excess FiO2 Sodium 138 142 Potassium 5.4 H 6.2 H* D Chloride 106 109 H Carbon Dioxide 18.9 L 21.2 Anion Gap 13 12 BUN 36 H 39 H Creatinine 1.9 H 1.6 H Estim Creat Clear Calc 27.3 L 32.4 L eGFR 29 L 36 L BUN/Creatinine Ratio 19 24 H Glucose 429 H* [address] Glu mg/dL Hemoglobin A1c Calculated Osmolality 301 H 294 Calcium 8.7 9.5 Corrected Calcium 9.2 9.5 Phosphorus 3.8 4.0 Magnesium 1.8 Total Bilirubin 0.3 AST 13 ALT 12 Alkaline Phosphatase 50 D Troponin I B-Natriuretic Peptide Total Protein 5.7 Albumin 3.4 D 4.0 D Globulin 2.3 Albumin/Globulin Ratio 1.5 Triglycerides Cholesterol LDL Cholesterol, Calc HDL Cholesterol Cholesterol/HDL Ratio Lipase Procalcitonin ABG Interpretation ABG results: 01/01/25 20:19 ABG pH 7.29 L ABG pCO2 46 ABG pO2 240 H ABG HCO3 22 ABG O2 Saturation 100 H ABG Base Excess -5 L Quality Measures Quality Measures VTE prophylaxis Assessment & Plan Assessment Current Active Medications: Generic Name Dose Route Start Last Admin Trade Name Freq PRN Reason Stop Dose Admin Acetaminophen 650 mg 01/01/25 20:00 Acetaminophen 325 Mg Tablet PO 01/31/25 19:59 Q6H PRN Fever >100.3 or pain 1-3 Albuterol/Ipratropium 3 ml 01/01/25 23:00 01/02/25 10:08 Albuterol/Ipratropium (Duoneb) Rt Blanca 3 Ml Nebu INH 01/31/25 22:59 3 ml Q4HRRT KIP Administration Dextrose 25 ml 01/01/25 20:18 Dextrose 50%-Water Inj 50 Ml Syringe IV 01/31/25 20:17 Q15MIN PRN BG 50-70 responsive npo pt Dextrose 50 ml 01/01/25 20:18 Dextrose 50%-Water Inj 50 Ml Syringe IV 01/31/25 20:17 Q15MIN PRN BG <50 OR BG <70 & pt unresponsive Dextrose 25 ml 01/02/25 12:37 Dextrose 50%-Water Inj 50 Ml Syringe IV 02/01/25 12:36 Q15MIN PRN BG 50-70 responsive npo pt Dextrose 50 ml 01/02/25 12:37 Dextrose 50%-Water Inj 50 Ml Syringe IV 02/01/25 12:36 Q15MIN PRN BG <50 OR BG <70 & pt unresponsive Glucagon 1 mg 01/01/25 20:18 Glucagon Inj 1 Mg Vial IM Q15MIN PRN BG <70, and no IV access Glucagon 1 mg 01/02/25 12:37 Glucagon Inj 1 Mg Vial IM Q15MIN PRN BG <70, and no IV access Heparin Sodium (Porcine) 5,000 unit 01/01/25 22:00 01/02/25 05:06 Heparin Sod Inj 5000 Unit/Ml Vial SC 01/15/25 21:59 5,000 unit Q8HR KIP Administration Hydralazine HCl 10 mg 01/01/25 20:17 Hydralazine Inj 20 Mg/Ml Vial IV 01/31/25 20:16 X1 PRN sbp>160 Hydralazine HCl 50 mg 01/02/25 14:00 Hydralazine Hcl 25 Mg Tablet PO 02/01/25 13:59 TID [facility] Azithromycin 500 mg/ Sodium 250 mls @ 250 mls/hr 01/02/25 21:00 Chloride IV 01/09/25 20:59 HS [facility] Ceftriaxone Sodium/Dextrose 1 gm in 50 mls @ 100 mls/hr 01/02/25 09:00 01/02/25 08:44 Rocephin/D5w 1gm Iv Premix IV 01/09/25 08:59 100 mls/hr QDAY KIP Administration Dextrose 1,000 mls @ 100 mls/hr 01/02/25 12:45 D10w 1000 Ml IV 01/02/25 22:44 .Q10H [facility] Insulin Glargine 26 unit 01/02/25 21:00 Insulin Glargine (Lantus) 5 Unit/0.05 Ml (Per 5 Units) SC 02/01/25 20:59 HS [facility] Insulin Human Lispro 0 unit 01/02/25 07:30 01/02/25 12:43 Insulin Lispro (Admelog) 1 Unit/0.01 Ml Unit SC 02/01/25 07:29 Not Given AC [facility] Protocol Methadone HCl 100 mg 01/02/25 09:00 01/02/25 08:42 Methadone Hcl 10 Mg Tablet PO 01/07/25 08:59 100 mg QDAY KIP Administration Methylprednisolone Sodium Succinate 40 mg 01/02/25 09:00 01/02/25 08:43 Methylprednisolone Sod Succ 40 Mg Vial IVP 01/09/25 08:59 40 mg QDAY KIP Administration Ondansetron HCl 4 mg 01/01/25 20:00 01/02/25 08:43 Ondansetron Inj 2 Mg/Ml Inj 2 Ml IV 01/31/25 19:59 4 mg Q6H PRN Administration NAUSEA OR VOMITING Protocol Pantoprazole Sodium 40 mg 01/02/25 10:30 Pantoprazole 40 Mg Tablet PO 02/01/25 10:29 QDAY KIP Sennosides 1 tab 01/01/25 20:00 Senna Tablet PO 01/31/25 19:59 QDAY PRN constipation Protocol Sodium Chloride 3 ml 01/01/25 17:02 Sodium Chloride Rt Blanca 0.9% 3 Ml Nebu INH 01/31/25 17:01 PRN PRN SOLN Sodium Chloride 3 ml 01/02/25 13:06 Sodium Chloride Rt Blanca 0.9% 3 Ml Nebu INH 02/01/25 13:05 PRN PRN SOLN Plan The patient is a 64-year-old female with a previous medical history of COPD on 2 L, hypertension, diabetes mellitus type 2, Atrial fibrillation on Eliquis at home (last dose 01/01/2025), history of PE, Takotsubo cardiomyopathy and history of substance use disorder who was admitted for acute hypoxic respiratory failure secondary to COPD Exacerbation. #COPD exacerbation #Acute hypoxic respiratory failure, improved Patient has history of frequent COPD exacerbation and uses oxygen constantly. This exacerbation was provoked by physical exertion and from pulling out floor boards. Plan -Pending Blood Cultures -Sputum Culture ? Goal oxygen saturation level 88-92% ? Chest PT ? DuoNebs inhalations every 4 hours ? Methylprednisolone 40 mg daily ? Ceftriaxone 1 g daily (01/01/2025-) ? Azithromycin 500 mg daily (01/01/2025?) #THEO THEO likely secondary to pre-renal causes given BUN/Cr ratio greater than 20 from poor oral intake. BUN 35, Cr 1.7, GFR 33 BUN/Cr 21. On admission: 01/01/2025 creatinine 1.9, potassium 5.9, GFR 29. Creatinine week earlier is 1.4. Plan: ? Monitor daily CMP ? Avoid nephrotoxic agents ? Renally dose medications ? Correct electrolyte abnormalities as necessary -Pending : Urine creatinine and protein ordered #Hyperkalemia Hyperkalemia likely secondary to THEO vs DKA given DMType 2 and underlying disease from COPD exacerbation. Plan: -Regular Insulin 5 units, Albuterol 10 mg, calcium chlorided -Repeat K. ? Kayexalate 30 g once X2 #Hypertension #Hypertensive urgency, resolved. Home blood pressure medications are lisinopril and metoprolol. Plan: ? Hyrdalazine 50 mg PO TID -Clonidine 0.1 mg PO BID -Home lisinopril on hold for now due to hyperkalemia and THEO #History of Afib Patient reports taking Eliquis at home. On telemetry patient is tachycardic in the 100s. Previous EKGs showed sinus rhythm. Most likely paroxysmal. Plan: - Holding Eliquis given anemia noted -Holding Metoprolol given COPD exacerbation #Type 2 diabetes #Metabolic Acidosis, non anio gap On admission, patient presented with elevated blood glucose levels with anion gap of 13 and negative ketones in UA. Given underlying disease, concern for metabolic acidosis, moving towards anion gap. Patient given Regular Insulin and glargine increased to home does. Monitor fasting blood glucose . A1c 7.5 Plan: ? Insulin sliding scale ? Insulin glargine 26 units SC #History of drug abuse Plan: ? Resumed home methadone ? Urine drug screen ordered #Normocytic Anemia Patient has a past medical history of normocytic anemia which ranges from 10.2- 9.7 hgb. 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 Less likely secondary to acute bleed as patient denied any hemtemsis or hempotysis. Denied blood in stool. Plan -Holding Eliquis -Iron panel -Ferritin Health maintenance: FEN: cardiac and renal diet DVT prophylaxis: heparin sc GI prophylaxis: none Dispo: telemetry CODE STATUS: Full Code - The patient's plan was discussed with attending Dr. Butterfield and senior residents Dr. Ayanna Puga MD PGY1 Internal Medicine
[2025-01-02] MEDS: ALBUTEROL RT 2.5 MG/0.5 ML NEBU 10 MG INH (13:13)
[2025-01-02] MEDS: SOD POLYSTYRENE SULFON SUSP 15 GM/60 ML BTL 30 GM PO (13:42)
[2025-01-02] MEDS: PANTOPRAZOLE 40 MG TABLET PO (13:42)
[2025-01-02] MEDS: DEXTROSE 50%-WATER INJ 50 ML SYRINGE IV (14:32)
[2025-01-02] MEDS: hydrALAZINE HCL 25 MG TABLET 50 MG PO ×2 (14:33→22:03)
[2025-01-02] MEDS: CALCIUM CHLORIDE 10% INJ 10 ML SYRG IV (14:33)
[2025-01-02] MEDS: INSULIN HUM REGULAR 1 UNIT/0.01 ML (PER UNIT) 5 UNIT IV (14:41)
[2025-01-02] MEDS: DEXTROSE 10%-WATER 500 ML 100 ML IV (15:43)
[2025-01-02 17:08] LABS: Alanine Aminotransferase 14 U/L (10-49); Albumin, Serum 3.5 gm/dL (3.4-4.8); Albumin/Globulin Ratio 1.5 (1.2-2.2); Alkaline Phosphatase 50 U/L (46-116); Anion Gap 8 (7-16); Aspartate Amino Transferase 17 U/L (0-34); BUN/Creatinine Ratio 21 Ratio (12-20); Bilirubin,Total 0.2 mg/dL (0.3-1.2); Blood Urea Nitrogen 35 mg/dL (9-23); Calcium 9.9 mg/dL (8.3-10.6); Calcium (Corrected) 10.3 mg/dL (8.5-10.1); Carbon Dioxide 21.8 mMol/L (20.0-31.0); Chloride 106 mMol/L (98-107); Creatinine (Component) 1.7 mg/dL (0.6-1.3); Estimated Creatinine Clearance 30.5 mL/min (>60); Globulin 2.4 gm/dL (2.3-3.5); Osmolality,Calculated 297 (275-295); Potassium 4.6 mMol/L (3.4-5.1); Sodium 136 mMol/L (136-145); Total Protein 5.9 gm/dL (5.7-8.2); eGFR 33 See Note
[2025-01-02 17:12] LABS: Glucose 418 mg/dL (74-106)
[2025-01-02] MEDS: INSULIN HUM REGULAR 1 UNIT/0.01 ML (PER UNIT) 10 UNIT SC (18:13)
[2025-01-02] MEDS: SODIUM CHLORIDE RT 10% 15 ML NEBU 5 ML INH (18:31)
[2025-01-02] MEDS: hydrALAZINE INJ 20 MG/ML VIAL 10 MG IV (18:41)
[2025-01-02] MEDS: INSULIN GLARGINE (Lantus) 5 UNIT/0.05 ML (PER 5 UNITS) 26 UNIT SC (20:44)
[2025-01-02] MEDS: APIXABAN 2.5 MG TABLET 5 MG PO (20:46)
[2025-01-02] MEDS: AZITHROMYCIN INJ 500 MG in SODIUM CHLORIDE 0.9% 250 ML 250 ML 250 MG IV (20:46)
--- NOTE | 2025-01-02 21:53 | EKG_ITS ---
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 : 1960 Requested By: oCnor Covarrubias Order Number: [id number] Reading MD: Conor Covarrubias Measurements Intervals [place] Rate: 133 P: 85 [place]: 149 QRS: 77 QRSD: 86 T: 42 QT: 308 QTc: 459 Interpretive Statements SINUS TACHYCARDIA INDETERMINATE AXIS ST DEVIATION AND MODERATE T-WAVE ABNORMALITY, CONSIDER ANTERIOR ISCHEMIA Compared to ECG 12/25/2024 11:45:46 Indeterminate axis now present T-wave abnormality now present Possible ischemia now present Sinus rhythm no longer present Intraventricular conduction delay no longer present ST (T wave) deviation no longer present /store/S0/[id number]/[id number].pdf
--- NOTE | 2025-01-02 21:59 | XR_ITS ---
Examination: AP chest single view Technique one AP portable upright chest single view Exam date and time: January 02, 2025 10:12 PM Indications: Shortness of breath today. Findings: Early pneumonia right lung bases Normal heart size Mild pulmonary vascular congestion Prominent osteopenia Impression: Early pneumonia both lung bases
[2025-01-02] MEDS: LORazepam 2 MG/ML VIAL 0.5 MG IVP (22:07)
--- NOTE | 2025-01-02 22:28 | PD.RESEVENT ---
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 She also reported some chest pain associated with palpitation. Her blood pressure was in 190s/110s. Physical examination was significant for dysphoric female, tachycardia and moderate wheezes throughout the lung field. EKG, chest x-ray, CBC, CMP, electrolytes, lactic acid, procalcitonin, troponin were ordered. EKG was sinus tachycardic. She was given Ativan 0.5 Mg IV x 1. She was also continued on breathing treatment, and was given 2 g of magnesium sulfate IV. Her buspirone at home was 5 mg daily, was given 10 mg x 1 and started on 10 mg daily. She reported improvement in her palpitation and chest pain. Chest x-ray revealed no significant changes from the previous x-ray. We will follow up on the labs. The patient's management plan was discussed with my attending physician MD Conor Solano MD, PGY2
[2025-01-02] MEDS: BusPIRone HCL 5 MG TABLET 10 MG PO (22:37)
[2025-01-02 23:10] LABS: Lactate (Lactic Acid) 1.5 mMol/L (0.4-2.0)
[2025-01-02 23:15] LABS: Basophils % (Auto) 0 % (0-2.5); Eosinophils % (Auto) 0 % (0-10); Hematocrit 26.2 % (36.0-46.0); Hemoglobin 8.5 g/dL (12.0-16.0); Immature Granulocytes % (Auto) 3 % (0-0); Immature Granulocytes Auto 0.56 Thou/mm3 (0.00-0.00); Lymphocytes # (Auto) 1.3 Thou/mm3 (1.0-4.8); Lymphocytes % (Auto) 6 % (10-50); Mean Corpuscular HGB Conc 32.4 g/dl (31.0-37.0); Mean Corpuscular Hemoglobin 26.6 pg (25.0-35.0); Mean Corpuscular Volume 82 fL (80-100); Monocytes # (Auto) 1.5 Thou/mm3 (0.0-0.8); Monocytes % (Auto) 7 % (0-12); Neutrophils % (Auto) 84 % (37-80); Nucleated Red Blood Cell % 0 /100 WBC (0); Platelet Count 263 Thou/mm3 (140-440); RDW Standard Deviation 47.7 fL (36.4-46.3); Red Blood Count 3.19 Miln/mm3 (4.00-5.20); White Blood Count 21.4 Thou/mm3 (3.6-11.0)
[2025-01-02 23:58] LABS: Alanine Aminotransferase 13 U/L (10-49); Albumin, Serum 3.6 gm/dL (3.4-4.8); Albumin/Globulin Ratio 1.6 (1.2-2.2); Alkaline Phosphatase 52 U/L (46-116); Anion Gap 7 (7-16); Aspartate Amino Transferase 16 U/L (0-34); BUN/Creatinine Ratio 25 Ratio (12-20); Bilirubin,Total 0.2 mg/dL (0.3-1.2); Blood Urea Nitrogen 37 mg/dL (9-23); Calcium 9.3 mg/dL (8.3-10.6); Calcium (Corrected) 9.6 mg/dL (8.5-10.1); Carbon Dioxide 25.5 mMol/L (20.0-31.0); Chloride 107 mMol/L (98-107); Creatinine (Component) 1.5 mg/dL (0.6-1.3); Estimated Creatinine Clearance 34.5 mL/min (>60); Globulin 2.3 gm/dL (2.3-3.5); Glucose 169 mg/dL (74-106); Magnesium 2.1 mg/dL (1.6-2.6); Osmolality,Calculated 290 (275-295); Potassium 4.1 mMol/L (3.4-5.1); Procalcitonin 0.53 ng/ml (0.0-0.49); Sodium 139 mMol/L (136-145); Total Protein 5.9 gm/dL (5.7-8.2); eGFR 39 See Note
[2025-01-03] VITALS (15 sets, daily range): BP systolic 120–175; BP diastolic 72–92; PULSE 75–104; RESP 14–24; TEMP 36.1–37; O2SAT 95–100; BMI 26.4
[2025-01-03 00:06] LABS: Troponin I 0.349 ng/mL (0.0-0.045)
[2025-01-03 02:46] LABS: Basophils % (Auto) 0 % (0-2.5); Eosinophils % (Auto) 0 % (0-10); Hematocrit 25.4 % (36.0-46.0); Immature Granulocytes % (Auto) 2 % (0-0); Immature Granulocytes Auto 0.52 Thou/mm3 (0.00-0.00); Lymphocytes # (Auto) 2.5 Thou/mm3 (1.0-4.8); Lymphocytes % (Auto) 11 % (10-50); Mean Corpuscular HGB Conc 33.1 g/dl (31.0-37.0); Mean Corpuscular Hemoglobin 27.1 pg (25.0-35.0); Mean Corpuscular Volume 82 fL (80-100); Monocytes # (Auto) 1.6 Thou/mm3 (0.0-0.8); Monocytes % (Auto) 7 % (0-12); Neutrophils # (Auto) 18.5 Thou/mm3 (1.8-7.7); Neutrophils % (Auto) 80 % (37-80); Nucleated Red Blood Cell % 0 /100 WBC (0); Platelet Count 268 Thou/mm3 (140-440); RDW Standard Deviation 47.1 fL (36.4-46.3); White Blood Count 23.3 Thou/mm3 (3.6-11.0)
[2025-01-03] MEDS: ALBUTEROL/IPRATROPIUM (Duoneb) RT SOL 3 ML NEBU INH ×3 (02:54→10:09)
[2025-01-03 03:07] LABS: Hemoglobin 8.4 g/dL (12.0-16.0)
[2025-01-03 03:11] LABS: Ferritin 44 ng/mL (7.3-270.7); Iron 24 mcg/dL (50-170); Percent Iron Saturation 7 % (20-55); Total Iron Binding Capacity 328 mcg/dL (250-425); Unsaturated Iron Binding 304 (225-295)
[2025-01-03 03:23] LABS: Alanine Aminotransferase 14 U/L (10-49); Albumin, Serum 3.6 gm/dL (3.4-4.8); Albumin/Globulin Ratio 1.6 (1.2-2.2); Alkaline Phosphatase 48 U/L (46-116); Anion Gap 8 (7-16); Aspartate Amino Transferase 15 U/L (0-34); BUN/Creatinine Ratio 28 Ratio (12-20); Bilirubin,Total 0.3 mg/dL (0.3-1.2); Blood Urea Nitrogen 39 mg/dL (9-23); Calcium 9.8 mg/dL (8.3-10.6); Calcium (Corrected) 10.1 mg/dL (8.5-10.1); Carbon Dioxide 25.8 mMol/L (20.0-31.0); Chloride 107 mMol/L (98-107); Creatinine (Component) 1.4 mg/dL (0.6-1.3); Globulin 2.3 gm/dL (2.3-3.5); Glucose 74 mg/dL (74-106); Magnesium 2.8 mg/dL (1.6-2.6); Osmolality,Calculated 289 (275-295); Phosphorous 3.8 mg/dL (2.4-5.1); Potassium 3.8 mMol/L (3.4-5.1); Sodium 141 mMol/L (136-145); Total Protein 5.9 gm/dL (5.7-8.2); eGFR 42 See Note
[2025-01-03 03:25] LABS: Troponin I 0.327 ng/mL (0.0-0.045)
[2025-01-03] MEDS: cefTRIAXone/D5w 1gm IV premix 1 GM/50 ML BAG IV (08:38)
[2025-01-03] MEDS: cloNIDine HCL 0.1 MG TABLET PO (08:40)
[2025-01-03] MEDS: BusPIRone HCL 5 MG TABLET 10 MG PO (08:40)
[2025-01-03] MEDS: predniSONE 20 MG TABLET 40 MG PO (08:40)
[2025-01-03] MEDS: APIXABAN 2.5 MG TABLET 5 MG PO ×2 (08:40→21:08)
[2025-01-03] MEDS: METHADONE HCL 10 MG TABLET 100 MG PO (08:41)
[2025-01-03] MEDS: PANTOPRAZOLE 40 MG TABLET PO (08:41)
[2025-01-03] MEDS: LOSARTAN POTASSIUM 25 MG TABLET 50 MG PO (08:41)
[2025-01-03] MEDS: amLODIPine BESYLATE 5 MG TABLET 10 MG PO (12:17)
[2025-01-03] MEDS: ONDANSETRON INJ 2 MG/ML INJ 2 ML 4 MG IV ×2 (12:36→21:15)
--- NOTE | 2025-01-03 13:46 | ESPR_ITS ---
<Statement entered by Ashok Butterfield MD - 01/10/25 07:28> I reviewed above note and agree with findings and plans. I have also personally examined the patient with medicine team and went over assessment and plan with medical team including administrative intern and resident physician. Documentation for date of: 01/03/25 Patient was seen and examined at bedside, patient received exacerbation treatment with steroids. Patient is on azithromycin and ceftriaxone will consider to discontinue Rocephin may be tomorrow, continue DuoNebs treatment which appears to be helping with her symptoms. CMP revealed hyperkalemia of 6.2, patient home medication is spironolactone, was held patient was given hyperkalemia protocol, will follow-up with repeat potassium level. Labs revealed hyperglycemia, patient was given multiple sc insulin, patient glucose level is very labile, and tends to be dropping very quickly. We will start home insulin, continue close monitor. Cultures are pending. Patient has resistant hypertension, home medication hydralazine, clonidine, lisinopril, holding lisinopril in the setting of THEO, will restart hydralazine and clonidine, continue close monitor blood pressure, resume home medication as she tolerates. #Acute hypoxic respiratory failure secondary to COPD exacerbation, continue DuoNebs, steroids, will consider switching IV methylprednisone to p.o., continue DuoNebs treatment, goal for O2 sats 88-92. #Hyperglycemia Home insulin, patient may need require more insulin as she is currently on steroids, will continue close monitor, adjust insulin regimen accordingly. #Hyperkalemia, could be secondary due to medication, holding spironolactone, patient was given hyperkalemia protocol, will follow-up with repeat potassium level. #Hypertension, Resistant HTN, held spironolactone due to hyperK, started Amlodipine, Losartan as renal function close to baseline, hydralazine PO tid, #Afib RVR, had a rapid response for afib RVR, will resume home med metoprolol for rate control Afib, continue eliquis 5mg bid, monitor for bleeding. I personally saw and examined the patient and discussed the assessment and plan with the entire medicine team, including my attending Dr. Butterfield, Quresh PGY2 Subjective Subjective Interval history: Overnight sepsis alert called secondary to elevated WBC increasing work of breathing, increasing heart rate and blood cultures and x-ray repeated. Patient was started on losartan and amlodipine given patient's elevated blood pressure. Patient was switched from albuterol to levalbuterol given elevated heart rate. Hydralazine D/C given HR. Buspirone restarted. Methylprednisolone IV-->Prednisone. Exam Vital Signs Temp Pulse Resp BP Pulse Ox O2 Del Method O2 Flow Rate 98.6 F 90 16 144/82 H 98 BiPAP 2 01/03/25 12:00 01/03/25 12:17 01/03/25 12:00 01/03/25 12:17 01/03/25 12:00 01/03/25 12:00 01/03/25 00:00 FiO2 35 01/03/25 10:11 Narrative Exam General Appearance: Alert & Oriented X3, well-nourished female who is lying in bed in no acute distress. HEENT: Skull symmetrical and atraumatic. Conjunctivae pin and moist. Pupils equal, round, reactive to light and accommodation (PERRL). External ear without lesion or discharge. Straight, nares patient, mucosa pink, no discharge. No thyroid nodule appreciated. No cervical lymphadenopathy. Cardio: Normal Rate and Rhythm with S1 and S2 heart sounds. No murmurs or extra heart sounds auscultated. No bruits on carotid auscultation. No peripheral edema or cyanosis. Lungs: Symmetric with good expansion. Chest and back non-tender. Breath sounds vesicular with rhonchi through out all lung mehta Abdomen: Non-tender, Non-distended, Normal Reactive Bowel Sounds Neuro: Alert, cooperative, oriented to person, place, and time. Speech clear. CN grossly intact. Upper motor strength 5/5 and Lower motor strength 5/5. Sensation intact. Objective Labs 01/04/25 04:41 01/04/25 04:41 Labs: Laboratory Results - last 24 hr 01/02/25 01/02/25 01/03/25 16:29 22:55 02:34 WBC 21.4 H 23.3 H RBC 3.19 L 3.10 L Hgb 8.5 L 8.4 L Hct 26.2 L 25.4 L MCV 82 82 MCH 26.6 27.1 MCHC 32.4 33.1 RDW Std Deviation 47.7 H 47.1 H Plt Count 263 268 Neut % (Auto) 84 H 80 Lymph % (Auto) 6 L 11 Ogle % (Auto) 7 7 Eos % (Auto) 0 0 Baso % (Auto) 0 0 Neut # (Auto) 18.0 H 18.5 H Lymph # (Auto) 1.3 2.5 Ogle # (Auto) 1.5 H 1.6 H Eos # (Auto) 0.0 0.0 Baso # (Auto) 0.0 0.0 Immature Gran # (Auto) 0.56 H 0.52 H Absolute Nucleated RBC 0.00 0.00 Immature Gran % 3 H 2 H Nucleated RBC % 0 0 Sodium 136 139 141 Potassium 4.6 D 4.1 D 3.8 Chloride 106 107 107 Carbon Dioxide 21.8 25.5 25.8 Anion Gap 8 7 8 BUN 35 H 37 H 39 H Creatinine 1.7 H 1.5 H 1.4 H Estim Creat Clear Calc 30.5 L 34.5 L 37.0 L eGFR 33 L 39 L 42 L BUN/Creatinine Ratio 21 H 25 H 28 H Glucose 418 H* D 169 H D 74 D Calculated Osmolality 297 H 290 289 Lactic Acid 1.5 Calcium 9.9 9.3 9.8 Corrected Calcium 10.3 H 9.6 10.1 Phosphorus 4.0 3.8 Magnesium 2.1 2.8 H Iron 24 L TIBC 328 Iron Saturation 7 L Unsat Iron Binding 304 H Ferritin 44 Total Bilirubin 0.2 L 0.2 L 0.3 AST 17 16 15 ALT 14 13 14 Alkaline Phosphatase 50 52 48 Troponin I 0.349 H* D 0.327 H* Total Protein 5.9 5.9 5.9 Albumin 3.5 D 3.6 3.6 Globulin 2.4 2.3 2.3 Albumin/Globulin Ratio 1.5 1.6 1.6 Procalcitonin 0.53 H ABG Interpretation ABG results: 01/01/25 20:19 ABG pH 7.29 L ABG pCO2 46 ABG pO2 240 H ABG HCO3 22 ABG O2 Saturation 100 H ABG Base Excess -5 L Quality Measures Quality Measures VTE prophylaxis Assessment & Plan Assessment Current Active Medications: Generic Name Dose Route Start Last Admin Trade Name Freq PRN Reason Stop Dose Admin Acetaminophen 650 mg 01/01/25 20:00 Acetaminophen 325 Mg Tablet PO 01/31/25 19:59 Q6H PRN Fever >100.3 or pain 1-3 Amlodipine Besylate 10 mg 01/04/25 21:00 Amlodipine Besylate 5 Mg Tablet PO 02/03/25 20:59 HS KIP Apixaban 5 mg 01/02/25 21:00 01/03/25 08:40 Apixaban 2.5 Mg Tablet PO 02/01/25 20:59 5 mg Q12H KIP Administration Buspirone HCl 10 mg 01/03/25 09:00 01/03/25 08:40 Buspirone Hcl 5 Mg Tablet PO 02/02/25 08:59 10 mg QDAY KIP Administration Dextrose 25 ml 01/02/25 12:37 Dextrose 50%-Water Inj 50 Ml Syringe IV 02/01/25 12:36 Q15MIN PRN BG 50-70 responsive npo pt Dextrose 50 ml 01/02/25 12:37 Dextrose 50%-Water Inj 50 Ml Syringe IV 02/01/25 12:36 Q15MIN PRN BG <50 OR BG <70 & pt unresponsive Glucagon 1 mg 01/02/25 12:37 Glucagon Inj 1 Mg Vial IM Q15MIN PRN BG <70, and no IV access Azithromycin 500 mg/ Sodium 250 mls @ 250 mls/hr 01/02/25 21:00 01/02/25 20:46 Chloride IV 01/09/25 20:59 250 mls/hr HS KIP Administration Ceftriaxone Sodium/Dextrose 1 gm in 50 mls @ 100 mls/hr 01/02/25 09:00 01/03/25 08:38 Rocephin/D5w 1gm Iv Premix IV 01/09/25 08:59 100 mls/hr QDAY KIP Administration Insulin Glargine 26 unit 01/02/25 21:00 01/02/25 20:44 Insulin Glargine (Lantus) 5 Unit/0.05 Ml (Per 5 Units) SC 02/01/25 20:59 26 unit HS KIP Administration Insulin Human Lispro 0 unit 01/02/25 21:00 01/03/25 11:45 Insulin Lispro (Admelog) 1 Unit/0.01 Ml Unit SC 02/01/25 20:59 Not Given ACHS KIP Protocol Ipratropium [place] 0.5 mg 01/03/25 11:09 Ipratropium Rt 0.5 Mg/ 2.5 Ml Nebu INH 02/02/25 11:08 Q4HR PRN SHORTNESS OF BREATH Levalbuterol HCl 0.31 mg 01/03/25 11:09 Levalbuterol Rt 0.31 Mg/3 Ml Nebu INH 02/02/25 11:08 Q8HR PRN WHEEZING Losartan Potassium 50 mg 01/03/25 09:00 01/03/25 08:41 Losartan Potassium 25 Mg Tablet PO 02/02/25 08:59 50 mg QDAY KIP Administration Methadone HCl 100 mg 01/02/25 09:00 01/03/25 08:41 Methadone Hcl 10 Mg Tablet PO 01/07/25 08:59 100 mg QDAY KIP Administration Ondansetron HCl 4 mg 01/01/25 20:00 01/03/25 12:36 Ondansetron Inj 2 Mg/Ml Inj 2 Ml IV 01/31/25 19:59 4 mg Q6H PRN Administration NAUSEA OR VOMITING Protocol Pantoprazole Sodium 40 mg 01/02/25 10:30 01/03/25 08:41 Pantoprazole 40 Mg Tablet PO 02/01/25 10:29 40 mg QDAY KIP Administration Prednisone 40 mg 01/03/25 09:00 01/03/25 08:40 Prednisone 20 Mg Tablet PO 01/10/25 07:43 40 mg QDAY KIP Administration Sennosides 1 tab 01/01/25 20:00 Senna Tablet PO 01/31/25 19:59 QDAY PRN constipation Protocol Sodium Chloride 3 ml 01/02/25 13:06 Sodium Chloride Rt [place] 0.9% 3 Ml Nebu INH 02/01/25 13:05 PRN PRN SOLN Plan The patient is a 64-year-old female with a previous medical history of COPD on 2 L, hypertension, diabetes mellitus type 2, Atrial fibrillation on Eliquis at home (last dose 01/01/2025), history of PE, Takotsubo cardiomyopathy and history of substance use disorder who was admitted for acute hypoxic respiratory failure secondary to COPD Exacerbation. #COPD exacerbation #Acute hypoxic respiratory failure Patient has history of frequent COPD exacerbation and uses oxygen constantly. This exacerbation was provoked by physical exertion and from pulling out floor boards. Plan -Pending Blood Cultures Negative 24 hours -Sputum Culture GNR & epithelial cells, pending final results ? Goal oxygen saturation level 88-92% ? Chest PT ? DuoNebs inhalations every 4 hours ? Methylprednisolone 40 mg daily ? Ceftriaxone 1 g daily (01/01/2025-) ? Azithromycin 500 mg daily (01/01/2025?) #THEO vs CKD THEO likely secondary to pre-renal causes given BUN/Cr ratio greater than 20 from poor oral intake. BUN 35, Cr 1.7, GFR 33 BUN/Cr 21. CKD given decreased GFR for several months including in October. On admission: 01/01/2025 creatinine 1.9, potassium 5.9, GFR 29. Creatinine week earlier is 1.4. Plan: ? Monitor daily CMP ? Avoid nephrotoxic agents ? Renally dose medications #Hypertension #Hypertensive urgency, resolved. Home blood pressure medications are lisinopril and metoprolol. Plan: -Amlodipine 10 mg HS (first dose given this morning) -Losartan 50 mg orally once a day ?Hyrdalazine 50 mg PO TID -D/C given tachycardia #History of Afib, stable Patient reports taking Eliquis at home. On telemetry patient is tachycardic in the 100s. Previous EKGs showed sinus rhythm. Most likely paroxysmal. Plan: - Eliquis 5 mg BID -Holding Metoprolol given COPD exacerbation -->resume tomorrow. #Type 2 diabetes #Metabolic Acidosis, non anio gap, Resolved On admission, patient presented with elevated blood glucose levels with anion gap of 13 and negative ketones in UA. Given underlying disease, concern for metabolic acidosis, moving towards anion gap. Patient given Regular Insulin and glargine increased to home does. Monitor fasting blood glucose . A1c 7.5 Plan: ? Insulin sliding scale ? Insulin glargine 26 units SC #Normocytic Anemia Patient has a past medical history of normocytic anemia which ranges from 10.2- 9.7 hgb. 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 Less likely secondary to acute bleed as patient denied any hemtemsis or hempotysis. Denied blood in stool. Plan -Start Iron upon discharge #History of drug abuse Plan: ? Resumed home methadone #Hyperkalemia, resolved Health maintenance: FEN: cardiac and renal diet DVT prophylaxis: heparin sc GI prophylaxis: none Dispo: telemetry CODE STATUS: Full Code - The patient's plan was discussed with attending Dr. Butterfield and senior residents Dr. Ursula Puga MD PGY1 Internal Medicine
[2025-01-03] MEDS: INSULIN LISPRO (AdmeLOG) 1 UNIT/0.01 ML UNIT SC ×2 (16:41→21:07)
[2025-01-03] MEDS: AZITHROMYCIN INJ 500 MG in SODIUM CHLORIDE 0.9% 250 ML 250 ML 250 MG IV (21:08)
[2025-01-03] MEDS: INSULIN GLARGINE (Lantus) 5 UNIT/0.05 ML (PER 5 UNITS) 26 UNIT SC (21:08)
[2025-01-04] VITALS (19 sets, daily range): BP systolic 135–176; BP diastolic 71–90; PULSE 60–95; RESP 12–23; TEMP 36–36.6; O2SAT 93–99; BMI 26.6
[2025-01-04] MEDS: hydrALAZINE HCL 25 MG TABLET 50 MG PO ×3 (05:07→21:05)
[2025-01-04] MEDS: SENNA TABLET 1 TAB PO (05:07)
[2025-01-04 05:42] LABS: Basophils % (Auto) 0 % (0-2.5); Eosinophils % (Auto) 0 % (0-10); Hematocrit 24.3 % (36.0-46.0); Hemoglobin 7.7 g/dL (12.0-16.0); Immature Granulocytes % (Auto) 2 % (0-0); Immature Granulocytes Auto 0.39 Thou/mm3 (0.00-0.00); Lymphocytes # (Auto) 2.2 Thou/mm3 (1.0-4.8); Lymphocytes % (Auto) 13 % (10-50); Mean Corpuscular HGB Conc 31.7 g/dl (31.0-37.0); Mean Corpuscular Volume 85 fL (80-100); Monocytes # (Auto) 1.1 Thou/mm3 (0.0-0.8); Monocytes % (Auto) 7 % (0-12); Neutrophils # (Auto) 12.5 Thou/mm3 (1.8-7.7); Neutrophils % (Auto) 77 % (37-80); Nucleated Red Blood Cell % 0 /100 WBC (0); Platelet Count 250 Thou/mm3 (140-440); Red Blood Count 2.85 Miln/mm3 (4.00-5.20); White Blood Count 16.2 Thou/mm3 (3.6-11.0)
[2025-01-04 06:13] LABS: Alanine Aminotransferase 14 U/L (10-49); Albumin, Serum 3.3 gm/dL (3.4-4.8); Albumin/Globulin Ratio 1.7 (1.2-2.2); Alkaline Phosphatase 51 U/L (46-116); Anion Gap 7 (7-16); Aspartate Amino Transferase 14 U/L (0-34); BUN/Creatinine Ratio 34 Ratio (12-20); Bilirubin,Total 0.4 mg/dL (0.3-1.2); Blood Urea Nitrogen 47 mg/dL (9-23); Calcium 8.9 mg/dL (8.3-10.6); Calcium (Corrected) 9.5 mg/dL (8.5-10.1); Chloride 108 mMol/L (98-107); Creatinine (Component) 1.4 mg/dL (0.6-1.3); Estimated Creatinine Clearance 40.9 mL/min (>60); Glucose 116 mg/dL (74-106); Magnesium 2.3 mg/dL (1.6-2.6); Osmolality,Calculated 294 (275-295); Phosphorous 3.8 mg/dL (2.4-5.1); Potassium 4.2 mMol/L (3.4-5.1); Sodium 141 mMol/L (136-145); Total Protein 5.3 gm/dL (5.7-8.2); eGFR 42 See Note
[2025-01-04] MEDS: cefTRIAXone/D5w 1gm IV premix 1 GM/50 ML BAG IV (08:15)
[2025-01-04] MEDS: BusPIRone HCL 5 MG TABLET 10 MG PO (08:15)
[2025-01-04] MEDS: METOPROLOL SUCCINATE XL 25 MG TABCR PO (08:16)
[2025-01-04] MEDS: predniSONE 20 MG TABLET 30 MG PO (08:17)
[2025-01-04] MEDS: LOSARTAN POTASSIUM 25 MG TABLET 50 MG PO (08:17)
[2025-01-04] MEDS: PANTOPRAZOLE 40 MG TABLET PO (08:17)
[2025-01-04] MEDS: METHADONE HCL 10 MG TABLET 100 MG PO (08:18)
[2025-01-04] MEDS: LEVALBUTEROL RT 0.31 MG/3 ML NEBU INH ×2 (08:32→16:41)
[2025-01-04] MEDS: IPRATROPIUM RT 0.5 MG/ 2.5 ML NEBU INH ×2 (08:32→16:41)
[2025-01-04 08:39] LABS: Collection Type, Urine Clean Catch
[2025-01-04 09:02] LABS: Amorphous Crystals,Urine Present (Absent); Bacteria,Urine 3+; Bilirubin,Urine Negative (Negative); Blood,Urine 3+ (Negative); Clarity,Urine Turbid (Clear/Hazy); Color,Urine Yellow (Lt Yel-Yel); Glucose, Urine 3+ (Negative); Ketones,Urine Negative (Negative); Leukocyte Esterase,Urine Positive (Negative); Nitrite,Urine Negative (Negative); PH,Urine 5.5 (5.0-7.0); Protein,Urine 1+ (Neg - Trace); RBC,Urine 124 /hpf (0-3); Specific Gravity,Urine 1.017 (1.001-1.035); Squamous Epithelial Cell,Urine 5 /hpf (0-5); Urobilinogen,Urine Negative mg/dL (0.0-1.0); WBC,Urine 608 /hpf (0-5)
[2025-01-04 09:19] LABS: Amphetamine/Methamp Scrn,U Positive (Negative); Barbiturate Screen,Urine Negative (Negative); Benzodiazepines Screen,Urine Negative (Negative); Benzoylecgonine Screen, Ur Negative (Negative); Creatinine,Random Urine 69 mg/dL (30-125); Fentanyl Screen,Urine Negative (Negative); Opiate Screen,Urine Negative (Negative); Protein Total, Random Urine 78 mg/dL (1-14); THC Screen,Urine Negative (Negative)
--- NOTE | 2025-01-04 09:29 | PD.RESCONSUL ---
HPI Data of Consult Consult date: 01/04/25 Requesting Physician: Rylee Samayoa MD Admitting Provider: Kaleb Zuleta MD Attending Provider: Rylee Samayoa MD Primary Care Provider: Physician No Primary/Family Consult Narrative Reason for consult: THEO History of present illness: Ms. Diaz is a 64-year-old female with a history of COPD (on 2 L O2 at home), A-fib, hypertension, type 2 diabetes, Takotsubo cardiomyopathy, and substance abuse presented to the ED on 01/01/2025 with worsening weakness and shortness of breath for several days, notably worsening with exertion. She denied fever or chills but had a dry cough with minimal phlegm. In the ED, she was afebrile (97.5?F), with hypertensive urgency (BP 223/139), heart rate (158), and low oxygen saturation (88% on 8 L O2). Labs revealed elevated WBC (25.4), potassium (5.9), BUN (34), creatinine (1.9), and glucose (460). Chest X-ray showed mild vascular congestion, and there was no evidence of pneumonia or pulmonary edema. She received methylprednisolone, albuterol/ipratropium inhalation, nitroglycerin paste, and insulin. BiPAP was initiated with settings IPAP 10, EPAP 5, and FiO2 80%. She was admitted for acute hypoxic respiratory failure secondary to COPD exacerbation. HD2 On day 2, she received continued treatment for her COPD exacerbation with steroids and antibiotics (azithromycin and ceftriaxone). Consideration was made to discontinue Rocephin (ceftriaxone) by the next day. She continues DuoNeb treatments, which are showing improvement in her symptoms. Labs revealed hyperkalemia (6.2), likely due to her home medication SPIRONOLACTONE, which was held. She was managed according to the hyperkalemia protocol, and potassium levels will be followed up. Additionally, hyperglycemia was noted with fluctuating glucose levels, so she received multiple subcutaneous insulin doses. Her glucose is labile and dropping quickly, so her home insulin regimen will be restarted, and close monitoring is needed, potentially adjusting the insulin doses due to the ongoing steroid use. She has hypertension on home METOPROLOL and LISINOPRIL. LISINOPRIL initially held due to acute kidney injury (THEO) which is resolving, now on AMLODIPINE 10 mg, METOPROLOL 25 mg daily, and LOSARTAN 50 mg daily. Today BP 162/88, HR 84. Nephrology team was consulted for management of THEO and blood pressure. cc:: cc: Rylee Samayoa MD Exam Vital Signs Temp Pulse Resp BP Pulse Ox O2 Del Method O2 Flow Rate 96.8 F 84 20 162/88 H 98 Nasal Cannula 3 01/04/25 08:00 01/04/25 08:32 01/04/25 08:32 01/04/25 08:17 01/04/25 08:32 01/04/25 08:00 01/04/25 08:32 FiO2 35 01/04/25 04:00 Narrative Exam GENERAL Normal appearing adult female, tachypneic. HEENT NCAT.?KASANDRA. Oral mucosa is moist. Patent Nares NECK Supple, nontender, no thyromegaly, no meningismus, no JVD, no step offs CHEST RRR, no m/g/r Tachypneic, significant bilateral wheezing, with mild rhonchi. Atraumatic, nontender, no crepitus, symmetrical expansion. ABDOMEN Soft, flat, nontender. No guarding/rebound tenderness/masses. Bowel sounds presents EXTREMITIES No edema/cyanosis.? SKIN Warm and dry, no jaundice/rashes. NEUROMUSCULAR No lumbar or midline, no CVA, no paraspinal muscle spasm or tenderness. Moves all 4 extremities well, with full ROM and good CSM. VICTORIA x4, CN II-XII grossly intact. No focal neurologic deficits. PSYCHIATRY Normal mood and affect, cooperative, no SI or HI or hallucinations. Results Labs 01/05/25 06:55 01/05/25 04:35 Labs: Short CBC 01/04/25 Range/Units 04:41 WBC 16.2 H D (3.6-11.0) Thou/mm3 Hgb 7.7 L (12.0-16.0) g/dL Hct 24.3 L (36.0-46.0) % Plt Count 250 (140-440) Thou/mm3 BMP 01/04/25 04:41 Sodium 141 Potassium 4.2 Chloride 108 H Carbon Dioxide 26.0 BUN 47 H Creatinine 1.4 H Glucose 116 H D Calcium 8.9 Liver Function 01/04/25 Range/Units 04:41 Total Bilirubin 0.4 (0.3-1.2) mg/dL AST 14 (0-34) U/L ALT 14 (10-49) U/L Alkaline Phosphatase 51 (46-116) U/L Albumin 3.3 L (3.4-4.8) gm/dL Urine 01/04/25 Range/Units 08:30 Urine Color Yellow (Lt Yel-Yel) Urine Clarity Turbid A (Clear/Hazy) Urine pH 5.5 (5.0-7.0) Ur Specific [place] 1.017 (1.001-1.035) Urine Protein 1+ A (Neg - Trace) Urine Glucose (UA) 3+ A (Negative) ABG Interpretation ABG results: 01/01/25 20:19 ABG pH 7.29 L ABG pCO2 46 ABG pO2 240 H ABG HCO3 22 ABG O2 Saturation 100 H ABG Base Excess -5 L Quality Measures Quality Measures VTE prophylaxis Medications Home Medications and Allergies Home Medications ?Medication ?Instructions ?Recorded ?Confirmed ?Type methadone 10 mg/5 mL oral solution 100 mg PO QDAY 02/07/24 01/03/25 History nitroglycerin 0.4 mg sublingual 0.4 mg buccal Q5MIN PRN Chest Pain 02/07/24 01/03/25 History tablet apixaban 5 mg tablet (Eliquis) 5 mg PO Q12H 01/02/25 01/02/25 History insulin glargine 100 unit/mL (3 26 unit subcut QAM 01/03/25 01/03/25 History mL) subcutaneous pen (Basaglar KwikPen U-100 Insulin) Allergies Allergy/AdvReac Type Severity Reaction Status Date / Time codeine Allergy Severe RASH Verified 12/25/24 05:46 diphenhydramine HCl Allergy Severe Hives Verified 12/25/24 05:46 egg Allergy Severe Rash Verified 12/25/24 05:46 Penicillins Allergy Severe SWELLING, Verified 12/25/24 05:46 RESP DISTRESS pentazocine (From Talwin) Allergy Severe Hives Verified 12/25/24 05:46 Visit Medications Acetaminophen (Acetaminophen 325 Mg Tablet) 650 mg PO Q6H PRN PRN Reason: Fever >100.3 or pain 1-3 Stop: 01/31/25 19:59 Amlodipine Besylate (Amlodipine Besylate 5 Mg Tablet) 10 mg PO HS KIP Stop: 02/03/25 20:59 Apixaban (Apixaban 2.5 Mg Tablet) 5 mg PO Q12H KIP Stop: 02/01/25 20:59 Last Admin: 01/03/25 21:08 Dose: 5 mg Buspirone HCl (Buspirone Hcl 5 Mg Tablet) 10 mg PO QDAY [facility] Stop: 02/02/25 08:59 Last Admin: 01/04/25 08:15 Dose: 10 mg Dextrose (Dextrose 50%-Water Inj 50 Ml Syringe) 25 ml IV Q15MIN PRN PRN Reason: BG 50-70 responsive npo pt Stop: 02/01/25 12:36 Dextrose (Dextrose 50%-Water Inj 50 Ml Syringe) 50 ml IV Q15MIN PRN PRN Reason: BG <50 OR BG <70 & pt unresponsive Stop: 02/01/25 12:36 Glucagon (Glucagon Inj 1 Mg Vial) 1 mg IM Q15MIN PRN PRN Reason: BG <70, and no IV access Hydralazine HCl (Hydralazine Hcl 25 Mg Tablet) 50 mg PO TID [facility] Stop: 02/03/25 13:59 Azithromycin 500 mg/ Sodium (Chloride) 250 mls @ 250 mls/hr IV [facility] Stop: 01/09/25 20:59 Last Infusion: 01/04/25 07:53 Dose: Infused Ceftriaxone Sodium/Dextrose (Rocephin/D5w 1gm Iv Premix) 1 gm in 50 mls @ 100 mls/hr IV QDAY [facility] Stop: 01/09/25 08:59 Last Admin: 01/04/25 08:15 Dose: 100 mls/hr Insulin Glargine (Insulin Glargine (Lantus) 5 Unit/0.05 Ml (Per 5 Units)) 26 unit SC [facility] Stop: 02/01/25 20:59 Last Admin: 01/03/25 21:08 Dose: 26 unit Insulin Human Lispro (Insulin Lispro (Admelog) 1 Unit/0.01 Ml Unit) 0 unit SC [facility]; Protocol Stop: 02/01/25 20:59 Last Admin: 01/04/25 07:26 Dose: Not Given Insulin Human Lispro (Insulin Lispro (Admelog) 1 Unit/0.01 Ml Unit) 2 unit SC [facility] Stop: 02/03/25 11:29 Ipratropium [place] (Ipratropium Rt 0.5 Mg/ 2.5 Ml Nebu) 0.5 mg INH Q4HR PRN PRN Reason: SHORTNESS OF BREATH Stop: 02/02/25 11:08 Last Admin: 01/04/25 08:32 Dose: 0.5 mg Levalbuterol HCl (Levalbuterol Rt 0.31 Mg/3 Ml Nebu) 0.31 mg INH Q4H PRN PRN Reason: WHEEZING Stop: 02/02/25 11:08 Last Admin: 01/04/25 08:32 Dose: 0.31 mg Losartan Potassium (Losartan Potassium 25 Mg Tablet) 50 mg PO QDAY [facility] Stop: 02/02/25 08:59 Last Admin: 01/04/25 08:17 Dose: 50 mg Methadone HCl (Methadone Hcl 10 Mg Tablet) 100 mg PO QDAY [facility] Stop: 01/07/25 08:59 Last Admin: 01/04/25 08:18 Dose: 100 mg Metoprolol Succinate (Metoprolol Succinate Xl 25 Mg Tabcr) 25 mg PO QDAY [facility] Stop: 02/03/25 08:59 Last Admin: 01/04/25 08:16 Dose: 25 mg Ondansetron HCl (Ondansetron Inj 2 Mg/Ml Inj 2 Ml) 4 mg IV Q6H PRN; Protocol PRN Reason: NAUSEA OR VOMITING Stop: 01/31/25 19:59 Last Admin: 01/03/25 21:15 Dose: 4 mg Pantoprazole Sodium (Pantoprazole 40 Mg Tablet) 40 mg PO QDAY [facility] Stop: 02/01/25 10:29 Last Admin: 01/04/25 08:17 Dose: 40 mg Prednisone (Prednisone 20 Mg Tablet) 30 mg PO QDAY [facility] Stop: 02/03/25 08:59 Last Admin: 01/04/25 08:17 Dose: 30 mg Sennosides (Senna Tablet) 1 tab PO QDAY PRN; Protocol PRN Reason: constipation Stop: 01/31/25 19:59 Last Admin: 01/04/25 05:07 Dose: 1 tab Sodium Chloride (Sodium Chloride Rt [place] 0.9% 3 Ml Nebu) 3 ml INH PRN PRN PRN Reason: SOLN Stop: 02/01/25 13:05 Discontinued Medications Albuterol (Albuterol Rt 2.5 Mg/0.5 Ml Nebu) 10 mg INH X1 ONE Stop: 01/01/25 17:03 Last Admin: 01/01/25 17:16 Dose: 10 mg Albuterol (Albuterol Rt 2.5 Mg/3 Ml Nebu) 2.5 mg INH X1 ONE Stop: 01/02/25 12:40 Albuterol (Albuterol Rt 2.5 Mg/0.5 Ml Nebu) 10 mg INH X1 ONE Stop: 01/02/25 12:42 Albuterol (Albuterol Rt 2.5 Mg/0.5 Ml Nebu) 10 mg INH X1 ONE Stop: 01/02/25 13:07 Last Admin: 01/02/25 13:13 Dose: 10 mg Albuterol/Ipratropium (Albuterol/Ipratropium (Duoneb) Rt [place] 3 Ml Nebu) 3 ml INH Q4HRRT KIP Stop: 01/31/25 22:59 Last Admin: 01/03/25 10:09 Dose: 3 ml Amlodipine Besylate (Amlodipine Besylate 5 Mg Tablet) 10 mg PO QDAY KIP Stop: 02/02/25 12:59 Last Admin: 01/03/25 12:17 Dose: 10 mg Buspirone HCl (Buspirone Hcl 5 Mg Tablet) 10 mg PO X1 ONE Stop: 01/02/25 22:29 Last Admin: 01/02/25 22:37 Dose: 10 mg Calcium Chloride (Calcium Chloride 10% Inj 10 Ml Syrg) 10 ml IV X1 ONE Stop: 01/02/25 12:38 Last Admin: 01/02/25 14:33 Dose: 10 ml Clonidine (Clonidine Hcl 0.1 Mg Tablet) 0.1 mg PO BID KIP Stop: 02/02/25 08:59 Last Admin: 01/03/25 08:40 Dose: 0.1 mg Dextrose (Dextrose 50%-Water Inj 50 Ml Syringe) 25 ml IV Q15MIN PRN PRN Reason: BG 50-70 responsive npo pt Stop: 01/31/25 20:17 Dextrose (Dextrose 50%-Water Inj 50 Ml Syringe) 50 ml IV X1 PRN PRN Reason: hypoglycemia Stop: 02/01/25 14:06 Last Admin: 01/02/25 14:32 Dose: 50 ml Heparin Sodium (Porcine) (Heparin Sod Inj 5000 Unit/Ml Vial) 5,000 unit SC Q8HR [facility] Stop: 01/15/25 21:59 Last Admin: 01/02/25 14:33 Dose: 5,000 unit Hydralazine HCl (Hydralazine Inj 20 Mg/Ml Vial) 10 mg IV X1 PRN PRN Reason: [id number] Stop: 01/31/25 20:16 Last Admin: 01/02/25 18:41 Dose: 10 mg Hydralazine HCl (Hydralazine Hcl 25 Mg Tablet) 25 mg PO TID [facility] Stop: 02/01/25 08:29 Last Admin: 01/02/25 08:46 Dose: 25 mg Hydralazine HCl (Hydralazine Hcl 25 Mg Tablet) 50 mg PO TID [facility] Stop: 02/01/25 13:59 Last Admin: 01/02/25 22:03 Dose: 50 mg Hydralazine HCl (Hydralazine Hcl 25 Mg Tablet) 50 mg PO TID [facility] Stop: 02/01/25 13:59 Last Admin: 01/03/25 05:32 Dose: Not Given Hydralazine HCl (Hydralazine Hcl 25 Mg Tablet) 50 mg PO X1 ONE Stop: 01/04/25 05:03 Last Admin: 01/04/25 05:07 Dose: 50 mg Ceftriaxone Sodium 1,000 mg/ (Sodium Chloride) 50 mls @ 100 mls/hr IV X1 ONE Stop: 01/01/25 19:55 Last Infusion: 01/01/25 21:17 Dose: Infused Ceftriaxone Sodium/Dextrose (Rocephin/D5w 1gm Iv Premix) 50 mls @ 100 mls/hr IV QDAY [facility] Stop: 01/08/25 20:07 Azithromycin 500 mg/ Sodium (Chloride) 250 mls @ 250 mls/hr IV X1 ONE Stop: 01/01/25 21:14 Last Infusion: 01/01/25 23:02 Dose: Infused Sodium Chloride (Ns) 1,000 mls @ 75 mls/hr IV .[id number] [facility] Stop: 01/31/25 20:16 Last Infusion: 01/04/25 07:55 Dose: Infused Lactated Ringer's (Lactated Ringers) 1,000 mls @ 75 mls/hr IV .[id number] [facility] Stop: 01/31/25 20:28 Magnesium Sulfate (Magnesium Sulfate Ivpb) 2 gm in 50 mls @ 25 mls/hr IV X1 ONE Stop: 01/02/25 10:08 Last Infusion: 01/04/25 07:54 Dose: Infused Dextrose (D10w 1000 Ml) 1,000 mls @ 100 mls/hr IV .Q10H [facility] Stop: 01/02/25 23:29 Dextrose (D10w) 500 mls @ 100 mls/hr IV .Q5H [facility] Stop: 01/02/25 19:14 Last Infusion: 01/04/25 07:54 Dose: Infused Magnesium Sulfate (Magnesium Sulfate Ivpb) 2 gm in 50 mls @ 25 mls/hr IV X1 ONE Stop: 01/03/25 00:00 Last Infusion: 01/04/25 07:54 Dose: Infused Insulin Glargine (Insulin Glargine (Lantus) 5 Unit/0.05 Ml (Per 5 Units)) 20 unit SC QDAY [facility] Stop: 02/01/25 08:59 Insulin Glargine (Insulin Glargine (Lantus) 5 Unit/0.05 Ml (Per 5 Units)) 26 unit SC QDAY [facility] Stop: 02/01/25 08:59 Insulin Human Lispro (Insulin Lispro (Admelog) 1 Unit/0.01 Ml Unit) 0 unit SC AC [facility]; Protocol Stop: 02/01/25 07:29 Last Admin: 01/02/25 18:12 Dose: 4 unit Insulin Human Lispro (Insulin Lispro (Admelog) 1 Unit/0.01 Ml Unit) 10 unit SC X1 ONE Stop: 01/02/25 06:24 Last Admin: 01/02/25 06:34 Dose: 10 unit Insulin Human Lispro (Insulin Lispro (Admelog) 1 Unit/0.01 Ml Unit) 4 unit SC ACHS [facility] Stop: 02/03/25 07:29 Last Admin: 01/04/25 07:26 Dose: Not Given Insulin Human Regular (Insulin Hum Regular 1 Unit/0.01 Ml (Per Unit)) 10 unit IV X1 ONE Stop: 01/01/25 18:44 Last Admin: 01/01/25 19:18 Dose: 10 unit Insulin Human Regular (Insulin Hum Regular 1 Unit/0.01 Ml (Per Unit)) 5 unit SC X1 ONE Stop: 01/02/25 08:13 Last Admin: 01/02/25 08:44 Dose: 5 unit Insulin Human Regular (Insulin Hum Regular 1 Unit/0.01 Ml (Per Unit)) 10 unit SC X1 ONE Stop: 01/02/25 10:21 Insulin Human Regular (Insulin Hum Regular 1 Unit/0.01 Ml (Per Unit)) 5 unit IV X1 ONE Stop: 01/02/25 12:38 Last Admin: 01/02/25 14:41 Dose: 5 unit Insulin Human Regular (Insulin Hum Regular 1 Unit/0.01 Ml (Per Unit)) 10 unit SC X1 ONE Stop: 01/02/25 17:51 Last Admin: 01/02/25 18:13 Dose: 10 unit Ipratropium [place] (Ipratropium Rt 0.5 Mg/ 2.5 Ml Nebu) 0.5 mg INH X1 ONE Stop: 01/01/25 17:03 Last Admin: 01/01/25 17:16 Dose: 0.5 mg Levalbuterol HCl (Levalbuterol Rt 0.31 Mg/3 Ml Nebu) 0.31 mg INH Q8HR PRN PRN Reason: WHEEZING Stop: 02/02/25 11:08 Lorazepam (Lorazepam 2 Mg/Ml Vial) 0.5 mg IVP X1 ONE Stop: 01/02/25 22:02 Last Admin: 01/02/25 22:07 Dose: 0.5 mg Methylprednisolone Sodium Succinate (Methylprednisolone Sod Succ 62.5 Mg/Ml 2ml Vial) 125 mg IVP X1 ONE Stop: 01/01/25 17:03 Last Admin: 01/01/25 17:07 Dose: 125 mg Methylprednisolone Sodium Succinate (Methylprednisolone Sod Succ 40 Mg Vial) 40 mg IVP QDAY [facility] Stop: 01/09/25 08:59 Last Admin: 01/02/25 08:43 Dose: 40 mg Nitroglycerin (Nitroglycerin Oint 2% 1 Inch Packet) 1 inch TOP X1 ONE Stop: 01/01/25 17:08 Last Admin: 01/01/25 17:14 Dose: 1 inch Prednisone (Prednisone 20 Mg Tablet) 40 mg PO QDAY [facility] Stop: 01/10/25 07:43 Last Admin: 01/03/25 08:40 Dose: 40 mg Sodium Chloride (Sodium Chloride Rt [place] 0.9% 3 Ml Nebu) 3 ml INH PRN PRN PRN Reason: SOLN Stop: 01/31/25 17:01 Last Admin: 01/01/25 17:17 Dose: 3 ml Sodium Chloride (Sodium Chloride Rt 10% 15 Ml Nebu) 5 ml INH X1 ONE Stop: 01/02/25 17:43 Last Admin: 01/02/25 18:31 Dose: 5 ml Sodium Polystyrene Sulfonate (Sod Polystyrene Sulfon Susp 15 Gm/60 Ml Btl) 30 gm PO X1 ONE Stop: 01/01/25 19:29 Last Admin: 01/01/25 20:03 Dose: 30 gm Sodium Polystyrene Sulfonate (Sod Polystyrene Sulfon Susp 15 Gm/60 Ml Btl) 30 gm PO X1 ONE Stop: 01/02/25 13:26 Last Admin: 01/02/25 13:42 Dose: 30 gm Assessment & Plan Plan A 64-year-old female with a history of COPD (on 2 L O2 at home), A-fib, hypertension, type 2 diabetes, Takotsubo cardiomyopathy, and substance abuse presented to the ED on 01/01/2025 with worsening weakness and shortness of breath for several days, notably worsening with exertion. Nephrology team consulted for management of THEO. THOE with ?CKD Admission CR 1.9, BUN 36, EGFR 29. Baseline CR around 1.4, EGFR around 42. Potentially declining kidney function as result of diabetic nephropathy. Has multiple admissions with significant hyperglycemia and A1c. Overall 4.4 L fluid positive. Urine output appears to be okay, although not recorded yesterday. Today, CR 1.4, BUN 47, EGFR 42, possible new baseline. Urine CR 69, Urine Protein 78H. ? Encourage oral hydration ? Monitor daily CMP ? Avoid nephrotoxic agents ? Renally dose medications ? Pending renal artery Doppler ? Pending renal ultrasound Hypertension Hypertensive urgency, resolved Presented with BP 223/139, HR 158. May be reactive in settings of illness. Currently on AMLODIPINE 10 mg, METOPROLOL 25 mg daily, and LOSARTAN 50 mg daily. Today BP 162/88, HR 84. Meets criteria for resistant HTN. ? Pending renal artery Doppler ? Daily vitals ? HOLD LOSARTAN COPD exacerbation Acute hypoxic respiratory failure History of Afib, stable Type 2 diabetes Metabolic Acidosis, non anio gap, Resolved Normocytic Anemia History of drug abuse Hyperkalemia, resolved Patient case was discussed with attending, Dr. Samayoa. Tyrone Hanoun, DO PGYI Attending Provider Attestation/Addendum Patient seen and examined with resident physician Dr. Hansen. Note reviewed, agree with findings and recommendations. Patient admitted with shortness of breath and noted to have THEO. Patient admitted with hypertensive urgency. Will do workup for secondary hypertension. Suspect underlying CKD from poorly controlled hypertension and diabetes for years. ordered renal labs. Thank you Ashok for allowing me to participate in the care of Ms. Diaz
--- NOTE | 2025-01-04 09:55 | XR_ITS ---
Examination: Renal arterial Doppler sonography of the with color flow analysis Exam date and time: January 04, 2025 1512 hrs. Indications: Acute renal insufficiency, hypertension 0 years Technique And Findings: Sonographic images right and left kidneys, assessment peak arterial systolic flow velocities calculation resistive indices and calculation or renal aortic ratios Right kidney 12.0 cm renal cortex 1.2 cm No elevation peak systolic velocities right renal arteries Elevation of mid right renal resistive index Normal renal aortic ratio Left kidney 11.2 cm renal cortex 2.4 cm No significant elevation peak systolic velocities No significant elevation resistive indices Normal renal aortic ratios Impression: No Doppler sonographic findings of renal artery stenosis
--- NOTE | 2025-01-04 09:55 | XR_ITS ---
Examination: Retroperitoneal ultrasound, complete Technique: Multiple high resolution grayscale images of the retroperitoneum obtained, including kidneys and bladder. Exam date and time:January 04, 2025 1448 hrs. Indications: Acute renal insufficiency hypertension several years Findings: Right kidney 11.8 cm renal cortex 1.1 24 mm upper pole renal cyst Left kidney 11.3 cm renal cortex 1.1 Moderate bilateral renal parenchymal scar formation No hydronephrosis No bladder mass or bladder calculi Bladder prevoid volume 359 cc Impression: Bilateral renal cortical thinning Moderate bilateral renal parenchymal scar formation No hydronephrosis
--- NOTE | 2025-01-04 13:51 | ESPR_ITS ---
<Statement entered by Ashok Butterfield MD - 01/11/25 08:54> I reviewed above note and agree with findings and plans. I have also personally examined the patient with medicine team and went over assessment and plan with medical team including architect intern and resident physician. Documentation for date of: 01/04/25 Patient was seen and examined at bedside, patient received exacerbation treatment with steroids. Patient is on azithromycin and ceftriaxone will consider to discontinue Rocephin may be tomorrow, continue DuoNebs treatment which appears to be helping with her symptoms. CMP revealed hyperkalemia of 6.2, patient home medication is spironolactone, was held patient was given hyperkalemia protocol, will follow-up with repeat potassium level. Labs revealed hyperglycemia, patient was given multiple sc insulin, patient glucose level is very labile, and tends to be dropping very quickly. We will start home insulin, continue close monitor. Cultures are pending. Patient has resistant hypertension, home medication hydralazine, clonidine, lisinopril, holding lisinopril in the setting of THEO, will restart hydralazine and clonidine, continue close monitor blood pressure, resume home medication as she tolerates. #Acute hypoxic respiratory failure secondary to COPD exacerbation, continue DuoNebs, steroids, methylprednisone p.o. , continue DuoNebs treatment, goal for O2 sats 88-92. #Hyperglycemia Home insulin, patient may need require more insulin as she is currently on steroids, will continue close monitor, adjust insulin regimen accordingly. #Hyperkalemia, could be secondary due to medication, holding spironolactone. #Hypertension, Resistant HTN, held spironolactone due to hyperK, started Nifedipine 10mg, hydralazine PO tid, clonidine bid, Losartan was started but held due to concern for Theo, will resume on discharge when renal function close to baseline, #Afib RVR, had a rapid response for afib RVR, will resume home med metoprolol 25mg qday for rate control Afib, held eliquis 5mg bid, monitor for bleeding. I personally saw and examined the patient and discussed the assessment and plan with the entire medicine team, including my attending Dr. Butterfield, Quresh PGY2 Subjective Subjective Interval history: Night patient's hypertension noted 176/89 and a one-time dose of hydroxyzine was given. During physical exam. Stated shortness of breath has improved but has not returned to baseline. Patient denied any fevers overnight. Skyler stated she had problems with puree wick overnight being turned off for a short term. Held Eliquis, giving decreasing Hgb. Pending Occult stool sample. Levalbuterol increased Q4HRs, Azithromycin course completed. Amlodipine 10 mg HS. Losartan X 1 given, holding for now. Exam Vital Signs Temp Pulse Resp BP Pulse Ox O2 Del Method O2 Flow Rate 97.2 F 68 16 141/72 H 96 Nasal Cannula 3 01/04/25 12:00 01/04/25 12:00 01/04/25 12:00 01/04/25 12:00 01/04/25 12:00 01/04/25 12:00 01/04/25 12:00 FiO2 35 01/04/25 04:00 Narrative Exam General Appearance: Alert & Oriented X3, well-nourished female who is lying in bed in no acute distress HEENT: Skull symmetrical and atraumatic. Conjunctivae pin and moist. Pupils equal, round, reactive to light and accommodation (PERRL). External ear without lesion or discharge. Straight, nares patient, mucosa pink, no discharge. No thyroid nodule appreciated. No cervical lymphadenopathy. Cardio: Normal Rate and Rhythm with S1 and S2 heart sounds. No murmurs or extra heart sounds auscultated. No bruits on carotid auscultation. No peripheral edema or cyanosis. Lungs: Symmetric with good expansion. Chest and back non-tender. Breath sounds vesicular with wheezing Abdomen: Non-tender, Non-distended, Normal Reactive Bowel Sounds Neuro: Alert, cooperative, oriented to person, place, and time. Speech clear. CN grossly intact. Upper motor strength 5/5 and Lower motor strength 5/5. Sensation intact. Objective Labs 01/04/25 16:20 01/04/25 04:41 Labs: Laboratory Results - last 24 hr 01/04/25 01/04/25 04:41 08:30 WBC 16.2 H D RBC 2.85 L Hgb 7.7 L Hct 24.3 L MCV 85 MCH 27.0 MCHC 31.7 RDW Std Deviation 48.0 H Plt Count 250 Neut % (Auto) 77 Lymph % (Auto) 13 Burke % (Auto) 7 Eos % (Auto) 0 Baso % (Auto) 0 Neut # (Auto) 12.5 H Lymph # (Auto) 2.2 Burke # (Auto) 1.1 H Eos # (Auto) 0.0 Baso # (Auto) 0.0 Immature Gran # (Auto) 0.39 H Absolute Nucleated RBC 0.00 Immature Gran % 2 H Nucleated RBC % 0 Sodium 141 Potassium 4.2 Chloride 108 H Carbon Dioxide 26.0 Anion Gap 7 BUN 47 H Creatinine 1.4 H Estim Creat Clear Calc 40.9 L eGFR 42 L BUN/Creatinine Ratio 34 H Glucose 116 H D Calculated Osmolality 294 Calcium 8.9 Corrected Calcium 9.5 Phosphorus 3.8 Magnesium 2.3 Total Bilirubin 0.4 AST 14 ALT 14 Alkaline Phosphatase 51 Total Protein 5.3 L Albumin 3.3 L Globulin 2.0 L Albumin/Globulin Ratio 1.7 Ur Collection Type Clean Catch Urine Color Yellow Urine Clarity Turbid A Urine pH 5.5 Ur Specific Harts 1.017 Urine Protein 1+ A Urine Glucose (UA) 3+ A Urine Ketones Negative Urine Blood 3+ A Urine Nitrite Negative Urine Bilirubin Negative Urine Urobilinogen (Auto) Negative Ur Leukocyte Esterase Positive Urine RBC 124 H Urine WBC 608 H Ur Squamous Epith Cells 5 Amorphous Crystals Present A Urine Bacteria 3+ A Ur Random Creatinine 69 U Random Total Protein 78 H Urine Opiates Screen Negative Urine Fentanyl Screen Negative Ur Barbiturates Screen Negative U Amphetamin/Meth Scrn Positive A U Benzodiazepines Scrn Negative U Cocaine Metab Screen Negative U Marijuana (THC) Screen Negative ABG Interpretation ABG results: 01/01/25 20:19 ABG pH 7.29 L ABG pCO2 46 ABG pO2 240 H ABG HCO3 22 ABG O2 Saturation 100 H ABG Base Excess -5 L Quality Measures Quality Measures VTE prophylaxis Assessment & Plan Assessment Current Active Medications: Generic Name Dose Route Start Last Admin Trade Name Freq PRN Reason Stop Dose Admin Acetaminophen 650 mg 01/01/25 20:00 Acetaminophen 325 Mg Tablet PO 01/31/25 19:59 Q6H PRN Fever >100.3 or pain 1-3 Apixaban 5 mg 01/02/25 21:00 01/03/25 21:08 Apixaban 2.5 Mg Tablet PO 02/01/25 20:59 5 mg Q12H KIP Administration Buspirone HCl 10 mg 01/03/25 09:00 01/04/25 08:15 Buspirone Hcl 5 Mg Tablet PO 02/02/25 08:59 10 mg QDAY KIP Administration Dextrose 25 ml 01/02/25 12:37 Dextrose 50%-Water Inj 50 Ml Syringe IV 02/01/25 12:36 Q15MIN PRN BG 50-70 responsive npo pt Dextrose 50 ml 01/02/25 12:37 Dextrose 50%-Water Inj 50 Ml Syringe IV 02/01/25 12:36 Q15MIN PRN BG <50 OR BG <70 & pt unresponsive Glucagon 1 mg 01/02/25 12:37 Glucagon Inj 1 Mg Vial IM Q15MIN PRN BG <70, and no IV access Hydralazine HCl 50 mg 01/04/25 14:00 Hydralazine Hcl 25 Mg Tablet PO 02/03/25 13:59 TID [facility] Azithromycin 500 mg/ Sodium 250 mls @ 250 mls/hr 01/02/25 21:00 01/04/25 07:53 Chloride IV 01/09/25 20:59 Infused [facility] Infusion Ceftriaxone Sodium/Dextrose 1 gm in 50 mls @ 100 mls/hr 01/02/25 09:00 01/04/25 08:15 Rocephin/D5w 1gm Iv Premix IV 01/09/25 08:59 100 mls/hr QDAY [facility] Administration Insulin Glargine 26 unit 01/02/25 21:00 01/03/25 21:08 Insulin Glargine (Lantus) 5 Unit/0.05 Ml (Per 5 Units) SC 02/01/25 20:59 26 unit HS [facility] Administration Insulin Human Lispro 0 unit 01/02/25 21:00 01/04/25 11:59 Insulin Lispro (Admelog) 1 Unit/0.01 Ml Unit SC 02/01/25 20:59 Not Given ACHS [facility] Protocol Insulin Human Lispro 2 unit 01/04/25 11:30 01/04/25 11:59 Insulin Lispro (Admelog) 1 Unit/0.01 Ml Unit SC 02/03/25 11:29 Not Given ACHS [facility] Ipratropium [place] 0.5 mg 01/03/25 11:09 01/04/25 08:32 Ipratropium Rt 0.5 Mg/ 2.5 Ml Nebu INH 02/02/25 11:08 0.5 mg Q4HR PRN Administration SHORTNESS OF BREATH Levalbuterol HCl 0.31 mg 01/04/25 08:03 01/04/25 08:32 Levalbuterol Rt 0.31 Mg/3 Ml Nebu INH 02/02/25 11:08 0.31 mg Q4H PRN Administration WHEEZING Methadone HCl 100 mg 01/02/25 09:00 01/04/25 08:18 Methadone Hcl 10 Mg Tablet PO 01/07/25 08:59 100 mg QDAY KIP Administration Metoprolol Succinate 25 mg 01/04/25 09:00 01/04/25 08:16 Metoprolol Succinate Xl 25 Mg Tabcr PO 02/03/25 08:59 25 mg QDAY KIP Administration Nifedipine 10 mg 01/04/25 14:00 Nifedipine 10 Mg Capsule PO 02/03/25 13:59 TID KIP Ondansetron HCl 4 mg 01/01/25 20:00 01/03/25 21:15 Ondansetron Inj 2 Mg/Ml Inj 2 Ml IV 01/31/25 19:59 4 mg Q6H PRN Administration NAUSEA OR VOMITING Protocol Pantoprazole Sodium 40 mg 01/02/25 10:30 01/04/25 08:17 Pantoprazole 40 Mg Tablet PO 02/01/25 10:29 40 mg QDAY KIP Administration Prednisone 30 mg 01/04/25 09:00 01/04/25 08:17 Prednisone 20 Mg Tablet PO 02/03/25 08:59 30 mg QDAY KIP Administration Sennosides 1 tab 01/01/25 20:00 01/04/25 05:07 Senna Tablet PO 01/31/25 19:59 1 tab QDAY PRN Administration constipation Protocol Sodium Chloride 3 ml 01/02/25 13:06 Sodium Chloride Rt Blanca 0.9% 3 Ml Nebu INH 02/01/25 13:05 PRN PRN SOLN Plan The patient is a 64-year-old female with a previous medical history of COPD on 2 L, hypertension, diabetes mellitus type 2, Atrial fibrillation on Eliquis at home (last dose 01/01/2025), history of PE, Takotsubo cardiomyopathy and history of substance use disorder who was admitted for acute hypoxic respiratory failure secondary to COPD Exacerbation. #COPD exacerbation, improving #Acute hypoxic respiratory failure, resolved Patient has history of frequent COPD exacerbation and uses oxygen constantly. This exacerbation was provoked by physical exertion and from pulling out floor boards. Plan -Pending Blood Cultures Negative 48 hours -Sputum Culture GNR & epithelial cells-Pending ? Goal oxygen saturation level 88-92% ? Chest PT ? DuoNebs inhalations every 4 hours ? Methylprednisolone 40 mg daily ? Ceftriaxone 1 g daily (01/01/2025-) ? Azithromycin 500 mg daily (01/01/2025?) #THEO on CKD THEO likely secondary to pre-renal causes given BUN/Cr ratio greater than 20 from poor oral intake. BUN 35, Cr 1.7, GFR 33 BUN/Cr 21. CKD given decreased GFR for several months including in October. On admission: 01/01/2025 creatinine 1.9, potassium 5.9, GFR 29. Creatinine week earlier is 1.4. Plan: ? Monitor daily CMP ? Avoid nephrotoxic agents ? Renally dose medications #Resistant Hypertension #Hypertensive urgency, resolved. Home blood pressure medications are lisinopril and metoprolol. Plan: -Losartan X 1 -Amlodipine 10 mg HS -Hydralazine 50 mg TID -Losartan 50 mg orally once a day, holding #History of Afib, stable Patient reports taking Eliquis at home. On telemetry patient is tachycardic in the 100s. Previous EKGs showed sinus rhythm. Most likely paroxysmal. Plan: -Metroplolol succinate 25 mg Qday - Eliquis 5 mg BID, holding given decreasing hgb #Type 2 diabetes #Metabolic Acidosis, non anio gap, Resolved On admission, patient presented with elevated blood glucose levels with anion gap of 13 and negative ketones in UA. Given underlying disease, concern for metabolic acidosis, moving towards anion gap. Patient given Regular Insulin and Glargine increased to home does. Monitor fasting blood glucose . A1c 7.5 Plan: ? Insulin sliding scale -Insulin Lispro 2 units ? Insulin glargine 26 units SC #Normocytic Anemia Patient has a past medical history of normocytic anemia which ranges from 10.2- 9.7 hgb. 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 Less likely secondary to acute bleed as patient denied any hemtemsis or hempotysis. Denied blood in stool. Plan -Occult Blood-pending -Start Iron upon discharge #History of drug abuse Plan: ? Resumed home methadone #Hyperkalemia, resolved - help spironolactone due to hyperK Health maintenance: FEN: cardiac and renal diet DVT prophylaxis: heparin sc GI prophylaxis: none Dispo: telemetry CODE STATUS: Full Code - The patient's plan was discussed with attending Dr. Butterfield and senior residents Dr. Ursula Puga MD PGY1 Internal Medicine
--- NOTE | 2025-01-04 15:58 | PC.PT ---
Attempt to see the patient at 3pm to initiate PT evaluation but patient is at US. PT eval witheld.
[2025-01-04 16:35] LABS: Hematocrit 25.4 % (36.0-46.0)
[2025-01-04] MEDS: INSULIN LISPRO (AdmeLOG) 1 UNIT/0.01 ML UNIT 2 UNIT SC ×2 (17:14→21:07)
[2025-01-04] MEDS: INSULIN LISPRO (AdmeLOG) 1 UNIT/0.01 ML UNIT SC ×2 (17:15→21:08)
[2025-01-04] MEDS: ONDANSETRON INJ 2 MG/ML INJ 2 ML 4 MG IV (17:39)
[2025-01-04] MEDS: amLODIPine BESYLATE 5 MG TABLET 10 MG PO (21:05)
[2025-01-04] MEDS: INSULIN GLARGINE (Lantus) 5 UNIT/0.05 ML (PER 5 UNITS) 22 UNIT SC (21:08)
[2025-01-05] VITALS (14 sets, daily range): BP systolic 121–147; BP diastolic 60–78; PULSE 58–73; RESP 10–62; TEMP 35.9–36.6; O2SAT 94–99; BMI 23.8
[2025-01-05] MEDS: IPRATROPIUM RT 0.5 MG/ 2.5 ML NEBU INH ×2 (03:21→19:50)
[2025-01-05] MEDS: LEVALBUTEROL RT 0.31 MG/3 ML NEBU INH ×2 (03:21→19:51)
[2025-01-05] MEDS: hydrALAZINE HCL 25 MG TABLET 50 MG PO ×3 (05:05→21:27)
[2025-01-05 05:57] LABS: Alanine Aminotransferase 23 U/L (10-49); Albumin, Serum 3.3 gm/dL (3.4-4.8); Albumin/Globulin Ratio 1.6 (1.2-2.2); Alkaline Phosphatase 49 U/L (46-116); Anion Gap 7 (7-16); Aspartate Amino Transferase 29 U/L (0-34); BUN/Creatinine Ratio 30 Ratio (12-20); Bilirubin,Total 0.4 mg/dL (0.3-1.2); Blood Urea Nitrogen 39 mg/dL (9-23); Calcium 8.9 mg/dL (8.3-10.6); Calcium (Corrected) 9.5 mg/dL (8.5-10.1); Carbon Dioxide 26.9 mMol/L (20.0-31.0); Chloride 107 mMol/L (98-107); Creatinine (Component) 1.3 mg/dL (0.6-1.3); Estimated Creatinine Clearance 38.2 mL/min (>60); Globulin 2.1 gm/dL (2.3-3.5); Glucose 157 mg/dL (74-106); Osmolality,Calculated 293 (275-295); Phosphorous 3.2 mg/dL (2.4-5.1); Potassium 4.8 mMol/L (3.4-5.1); Sodium 141 mMol/L (136-145); Total Protein 5.4 gm/dL (5.7-8.2); eGFR 46 See Note
[2025-01-05 07:23] LABS: Basophils % (Auto) 0 % (0-2.5); Eosinophils # (Auto) 0.1 Thou/mm3 (0.0-0.5); Eosinophils % (Auto) 1 % (0-10); Hematocrit 26.7 % (36.0-46.0); Immature Granulocytes % (Auto) 4 % (0-0); Immature Granulocytes Auto 0.51 Thou/mm3 (0.00-0.00); Lymphocytes # (Auto) 3.1 Thou/mm3 (1.0-4.8); Lymphocytes % (Auto) 22 % (10-50); Mean Corpuscular HGB Conc 31.8 g/dl (31.0-37.0); Mean Corpuscular Volume 85 fL (80-100); Monocytes # (Auto) 1.1 Thou/mm3 (0.0-0.8); Monocytes % (Auto) 8 % (0-12); Neutrophils # (Auto) 9.3 Thou/mm3 (1.8-7.7); Neutrophils % (Auto) 66 % (37-80); Nucleated Red Blood Cell % 0 /100 WBC (0); Platelet Count 248 Thou/mm3 (140-440); RDW Standard Deviation 47.8 fL (36.4-46.3); Red Blood Count 3.15 Miln/mm3 (4.00-5.20); White Blood Count 14.1 Thou/mm3 (3.6-11.0)
[2025-01-05 07:39] LABS: Hemoglobin 8.5 g/dL (12.0-16.0)
[2025-01-05] MEDS: METHADONE HCL 10 MG TABLET 100 MG PO (08:22)
[2025-01-05] MEDS: BusPIRone HCL 5 MG TABLET 10 MG PO (08:23)
[2025-01-05] MEDS: PANTOPRAZOLE 40 MG TABLET PO (08:23)
[2025-01-05] MEDS: predniSONE 20 MG TABLET 40 MG PO (08:23)
[2025-01-05] MEDS: METOPROLOL SUCCINATE XL 25 MG TABCR PO (08:23)
[2025-01-05] MEDS: APIXABAN 2.5 MG TABLET 5 MG PO ×2 (08:24→21:26)
[2025-01-05] MEDS: cefTRIAXone/D5w 1gm IV premix 1 GM/50 ML BAG IV (08:24)
[2025-01-05] MEDS: SENNA TABLET 1 TAB PO ×2 (09:07→13:34)
[2025-01-05] MEDS: POLYETHYLENE GLYCOL 17 GM PACKET PO (09:14)
[2025-01-05] MEDS: ACETAMINOPHEN 325 MG TABLET 650 MG PO (10:50)
--- NOTE | 2025-01-05 11:22 | ESPR_ITS ---
Documentation for date of: 01/05/25 Subjective Subjective Interval history: Ms. Diaz is a 64-year-old female with a history of COPD (on 2 L O2 at home), A-fib, hypertension, type 2 diabetes, Takotsubo cardiomyopathy, and substance abuse presented to the ED on 01/01/2025 with worsening weakness and shortness of breath for several days, notably worsening with exertion. She denied fever or chills but had a dry cough with minimal phlegm. In the ED, she was afebrile (97.5?F), with hypertensive urgency (BP 223/139), heart rate (158), and low oxygen saturation (88% on 8 L O2). Labs revealed elevated WBC (25.4), potassium (5.9), BUN (34), creatinine (1.9), and glucose (460). Chest X-ray showed mild vascular congestion, and there was no evidence of pneumonia or pulmonary edema. She received methylprednisolone, albuterol/ipratropium inhalation, nitroglycerin paste, and insulin. BiPAP was initiated with settings IPAP 10, EPAP 5, and FiO2 80%. She was admitted for acute hypoxic respiratory failure secondary to COPD exacerbation. HD2 On day 2, she received continued treatment for her COPD exacerbation with steroids and antibiotics (azithromycin and ceftriaxone). Consideration was made to discontinue Rocephin (ceftriaxone) by the next day. She continues DuoNeb treatments, which are showing improvement in her symptoms. Labs revealed hyperkalemia (6.2), likely due to her home medication SPIRONOLACTONE, which was held. She was managed according to the hyperkalemia protocol, and potassium levels will be followed up. Additionally, hyperglycemia was noted with fluctuating glucose levels, so she received multiple subcutaneous insulin doses. Her glucose is labile and dropping quickly, so her home insulin regimen will be restarted, and close monitoring is needed, potentially adjusting the insulin doses due to the ongoing steroid use. She has hypertension on home METOPROLOL and LISINOPRIL. LISINOPRIL initially held due to acute kidney injury (THEO) which is resolving, now on AMLODIPINE 10 mg, METOPROLOL 25 mg daily, and LOSARTAN 50 mg daily. Today BP 162/88, HR 84. 01/05/2025 examined at bedside. SOB improving, currently on 2 L NC. Had several episodes of vomiting, feels constipated, added COLACE and stool softeners. Renal function proving, CR 1.3, BUN 39, EGFR 46. 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 Will add LOSARTAN 100 mg daily. Exam Vital Signs Temp Pulse Resp BP Pulse Ox O2 Del Method O2 Flow Rate 97.2 F 64 17 147/72 H 94 L Nasal Cannula 2 01/05/25 08:00 01/05/25 08:23 01/05/25 08:00 01/05/25 08:23 01/05/25 08:00 01/05/25 08:00 01/05/25 08:00 FiO2 23 01/04/25 20:10 Narrative Exam GENERAL * Normal appearing adult female, tachypneic. HEENT * NCAT.?KASANDRA. Oral mucosa is moist. Patent Nares NECK * Supple, nontender, no thyromegaly, no meningismus, no JVD, no step offs CHEST * RRR, no m/g/r * Improved bilateral wheezing, no rales or rhonchi. * Atraumatic, nontender, no crepitus, symmetrical expansion. ABDOMEN * Soft, flat, nontender. No guarding/rebound tenderness/masses. * Bowel sounds presents EXTREMITIES * No edema/cyanosis.? SKIN * Warm and dry, no jaundice/rashes. NEUROMUSCULAR * No lumbar or midline, no CVA, no paraspinal muscle spasm or tenderness. * Moves all 4 extremities well, with full ROM and good CSM. * VICTORIA x4, CN II-XII grossly intact. * No focal neurologic deficits. PSYCHIATRY * Normal mood and affect, cooperative, no SI or HI or hallucinations. Objective Labs 01/06/25 04:55 01/06/25 04:55 Labs: Laboratory Results - last 24 hr 01/04/25 01/05/25 01/05/25 16:20 04:35 06:55 WBC 14.1 H RBC 3.15 L Hgb 8.0 L 8.5 L Hct 25.4 L 26.7 L MCV 85 MCH 27.0 MCHC 31.8 RDW Std Deviation 47.8 H Plt Count 248 Neut % (Auto) 66 Lymph % (Auto) 22 [place] % (Auto) 8 Eos % (Auto) 1 Baso % (Auto) 0 Neut # (Auto) 9.3 H Lymph # (Auto) 3.1 [place] # (Auto) 1.1 H Eos # (Auto) 0.1 Baso # (Auto) 0.0 Immature Gran # (Auto) 0.51 H Absolute Nucleated RBC 0.00 Immature Gran % 4 H Nucleated RBC % 0 Sodium 141 Potassium 4.8 D Chloride 107 Carbon Dioxide 26.9 Anion Gap 7 BUN 39 H Creatinine 1.3 Estim Creat Clear Calc 38.2 L eGFR 46 L BUN/Creatinine Ratio 30 H Glucose 157 H Calculated Osmolality 293 Calcium 8.9 Corrected Calcium 9.5 Phosphorus 3.2 Magnesium 2.0 Total Bilirubin 0.4 AST 29 ALT 23 Alkaline Phosphatase 49 Total Protein 5.4 L Albumin 3.3 L Globulin 2.1 L Albumin/Globulin Ratio 1.6 ABG Interpretation ABG results: 01/01/25 20:19 ABG pH 7.29 L ABG pCO2 46 ABG pO2 240 H ABG HCO3 22 ABG O2 Saturation 100 H ABG Base Excess -5 L Quality Measures Quality Measures VTE prophylaxis Assessment & Plan Assessment Current Active Medications: Generic Name Dose Route Start Last Admin Trade Name Freq PRN Reason Stop Dose Admin Acetaminophen 650 mg 01/01/25 20:00 01/05/25 10:50 Acetaminophen 325 Mg Tablet PO 01/31/25 19:59 650 mg Q6H PRN Administration Fever >100.3 or pain 1-3 Amlodipine Besylate 10 mg 01/04/25 21:00 01/04/25 21:05 Amlodipine Besylate 5 Mg Tablet PO 02/03/25 20:59 10 mg HS KIP Administration Apixaban 5 mg 01/02/25 21:00 01/05/25 08:24 Apixaban 2.5 Mg Tablet PO 02/01/25 20:59 5 mg Q12H KIP Administration Buspirone HCl 10 mg 01/03/25 09:00 01/05/25 08:23 Buspirone Hcl 5 Mg Tablet PO 02/02/25 08:59 10 mg QDAY KIP Administration Dextrose 25 ml 01/02/25 12:37 Dextrose 50%-Water Inj 50 Ml Syringe IV 02/01/25 12:36 Q15MIN PRN BG 50-70 responsive npo pt Dextrose 50 ml 01/02/25 12:37 Dextrose 50%-Water Inj 50 Ml Syringe IV 02/01/25 12:36 Q15MIN PRN BG <50 OR BG <70 & pt unresponsive Glucagon 1 mg 01/02/25 12:37 Glucagon Inj 1 Mg Vial IM Q15MIN PRN BG <70, and no IV access Hydralazine HCl 50 mg 01/04/25 14:00 01/05/25 05:05 Hydralazine Hcl 25 Mg Tablet PO 02/03/25 13:59 50 mg TID KIP Administration Ceftriaxone Sodium/Dextrose 1 gm in 50 mls @ 100 mls/hr 01/02/25 09:00 01/05/25 09:15 Rocephin/D5w 1gm Iv Premix IV 01/09/25 08:59 Infused QDAY KIP Infusion Insulin Glargine 22 unit 01/04/25 21:00 01/04/25 21:08 Insulin Glargine (Lantus) 5 Unit/0.05 Ml (Per 5 Units) SC 02/03/25 20:59 22 unit HS KIP Administration Insulin Human Lispro 0 unit 01/02/25 21:00 01/05/25 07:34 Insulin Lispro (Admelog) 1 Unit/0.01 Ml Unit SC 02/01/25 20:59 Not Given ACHS [facility] Protocol Ipratropium [place] 0.5 mg 01/03/25 11:09 01/05/25 03:21 Ipratropium Rt 0.5 Mg/ 2.5 Ml Nebu INH 02/02/25 11:08 0.5 mg Q4HR PRN Administration SHORTNESS OF BREATH Levalbuterol HCl 0.31 mg 01/04/25 08:03 01/05/25 03:21 Levalbuterol Rt 0.31 Mg/3 Ml Nebu INH 02/02/25 11:08 0.31 mg Q4H PRN Administration WHEEZING Methadone HCl 100 mg 01/02/25 09:00 01/05/25 08:22 Methadone Hcl 10 Mg Tablet PO 01/07/25 08:59 100 mg QDAY KIP Administration Metoprolol Succinate 25 mg 01/04/25 09:00 01/05/25 08:23 Metoprolol Succinate Xl 25 Mg Tabcr PO 02/03/25 08:59 25 mg QDAY KIP Administration Ondansetron HCl 4 mg 01/01/25 20:00 01/04/25 17:39 Ondansetron Inj 2 Mg/Ml Inj 2 Ml IV 01/31/25 19:59 4 mg Q6H PRN Administration NAUSEA OR VOMITING Protocol Pantoprazole Sodium 40 mg 01/02/25 10:30 01/05/25 08:23 Pantoprazole 40 Mg Tablet PO 02/01/25 10:29 40 mg QDAY KIP Administration Prednisone 40 mg 01/05/25 09:00 01/05/25 08:23 Prednisone 20 Mg Tablet PO 02/04/25 08:59 40 mg QDAY KIP Administration Sennosides 1 tab 01/06/25 09:00 01/05/25 09:07 Senna Tablet PO 02/05/25 08:59 1 tab QDAY KIP Administration Protocol Sodium Chloride 3 ml 01/02/25 13:06 Sodium Chloride Rt [place] 0.9% 3 Ml Nebu INH 02/01/25 13:05 PRN PRN SOLN Plan A 64-year-old female with a history of COPD (on 2 L O2 at home), A-fib, hypertension, type 2 diabetes, Takotsubo cardiomyopathy, and substance abuse presented to the ED on 01/01/2025 with worsening weakness and shortness of breath for several days, notably worsening with exertion. Nephrology team consulted for management of THEO. Renal function improved, CR 1.3, BUN 39, EGFR 46. Urine output is good. Renal ultrasound findings suggestive of hypertensive related kidney disease. BP improved, currently 147/72. Will add LOSARTAN 100 mg daily. Complains of constipation, added senna and MIRALAX q. day. THEO with ?CKD Admission CR 1.9, BUN 36, EGFR 29. Baseline CR around 1.4, EGFR around 42. Potentially declining kidney function as result of diabetic nephropathy. Has multiple admissions with significant hyperglycemia and A1c. Overall 4.4 L fluid positive. Urine output appears to be okay, although not recorded yesterday. Urine CR 69, Urine Protein 78H. Renal ultrasound showed bilateral cortical thinning and moderate parenchymal scarring. Renal artery duplex negative for stenosis bilaterally. Today, CR 1.3, BUN 39, EGFR 46. ? Encourage oral hydration ? Monitor daily CMP ? Avoid nephrotoxic agents ? Renally dose medications ? Added LOSARTAN 100 mg daily Hypertension Hypertensive urgency, resolved Presented with BP 223/139, HR 158. May be reactive in settings of illness. Currently on AMLODIPINE 10 mg, METOPROLOL 25 mg daily, and HYDRALAZINE PRN (getting 1X daily on average) Today BP 147/72, HR 64. ? Daily vitals ? Continue AMLODIPINE 10 mg daily ? Continue METOPROLOL 25 mg daily ? Continue HYDRALAZINE PRN ? Added LOSARTAN 100 mg daily Constipation Normal bowel sounds on exam, no significant abdominal distention. ? Added senna daily ? Added MIRALAX daily COPD exacerbation Acute hypoxic respiratory failure History of Afib, stable Type 2 diabetes Metabolic Acidosis, non anio gap, Resolved Normocytic Anemia History of drug abuse Hyperkalemia, resolved Patient case was discussed with attending, Dr. Samayoa. Tyrone Martell, DO PGYI Attending Provider Attestation/Addendum Patient seen and examined with resident physician Dr. Hansen. Note reviewed, agree with findings and recommendations. Patient admitted with shortness of breath and noted to have THEO. Patient admitted with hypertensive urgency. Will do workup for secondary hypertension. Suspect underlying CKD from poorly controlled hypertension and diabetes for years. Renal ultrasound showed CKD changes. Blood pressure seems to be better. Creatinine improving. Complaining of dysphagia and nausea. Suspect esophageal spasm/stricture.
[2025-01-05] MEDS: LOSARTAN POTASSIUM 25 MG TABLET 100 MG PO (13:35)
[2025-01-05] MEDS: ONDANSETRON INJ 2 MG/ML INJ 2 ML 4 MG IV ×2 (13:41→20:41)
--- NOTE | 2025-01-05 14:40 | ESPR_ITS ---
<Statement entered by Ashok Butterfield MD - 01/11/25 12:55> I reviewed above note and agree with findings and plans. I have also personally examined the patient with medicine team and went over assessment and plan with medical team including epidemiology internship and resident physician. Documentation for date of: 01/05/25 Subjective Subjective Interval history: Patient was seen and examined at bedside. Labs and vitals were reviewed, leukocytosis improving, patient is responding to the antibiotics well, creatinine 6% on 2 L nasal cannula. Overnight patient was complaining of nausea, had 1 episode of vomiting, otherwise patient was hemodynamically stable, hemoglobin currently is 8.5, still pending occult blood test, however will resume the Eliquis. Renal panel significantly improved, creatinine is 1.3, BUN of 39, renal artery duplex did not reveal any arterial stenosis, renal ultrasound revealed mild cortical thinning secondary to underlying CKD, per nephrology patient started on losartan 100 daily given the history of CKD and diabetic nephropathy. Blood pressure is well-controlled with losartan, metoprolol 25 XL, amlodipine 10 at bedtime and hydralazine 50 3 times daily. Patient is responding well to the current medication, will continue close monitor. Blood sugar dropped, we will discontinue lispro 2 u 3 times daily, just continue long-acting Lantus. Anticipate discharge in the next 24 hours. Exam Vital Signs Temp Pulse Resp BP Pulse Ox O2 Del Method O2 Flow Rate 97.0 F 60 15 129/77 94 L Nasal Cannula 2 01/05/25 12:00 01/05/25 13:35 01/05/25 12:00 01/05/25 13:35 01/05/25 12:00 01/05/25 12:00 01/05/25 12:00 FiO2 23 01/04/25 20:10 Narrative Exam General Appearance: Alert & Oriented X3, well-nourished female who is lying in bed in no acute distress HEENT: Skull symmetrical and atraumatic. Conjunctivae pin and moist. Pupils equal, round, reactive to light and accommodation (PERRL). External ear without lesion or discharge. Straight, nares patient, mucosa pink, no discharge. No thyroid nodule appreciated. No cervical lymphadenopathy. Cardio: Normal Rate and Rhythm with S1 and S2 heart sounds. No murmurs or extra heart sounds auscultated. No bruits on carotid auscultation. No peripheral edema or cyanosis. Lungs: Symmetric with good expansion. Chest and back non-tender. Breath sounds vesicular with wheezing Abdomen: Non-tender, Non-distended, Normal Reactive Bowel Sounds Neuro: Alert, cooperative, oriented to person, place, and time. Speech clear. CN grossly intact. Upper motor strength 5/5 and Lower motor strength 5/5. Sensation intact. Objective Labs 01/05/25 06:55 01/05/25 04:35 Labs: Laboratory Results - last 24 hr 01/04/25 01/05/25 01/05/25 16:20 04:35 06:55 WBC 14.1 H RBC 3.15 L Hgb 8.0 L 8.5 L Hct 25.4 L 26.7 L MCV 85 MCH 27.0 MCHC 31.8 RDW Std Deviation 47.8 H Plt Count 248 Neut % (Auto) 66 Lymph % (Auto) 22 [place] % (Auto) 8 Eos % (Auto) 1 Baso % (Auto) 0 Neut # (Auto) 9.3 H Lymph # (Auto) 3.1 [place] # (Auto) 1.1 H Eos # (Auto) 0.1 Baso # (Auto) 0.0 Immature Gran # (Auto) 0.51 H Absolute Nucleated RBC 0.00 Immature Gran % 4 H Nucleated RBC % 0 Sodium 141 Potassium 4.8 D Chloride 107 Carbon Dioxide 26.9 Anion Gap 7 BUN 39 H Creatinine 1.3 Estim Creat Clear Calc 38.2 L eGFR 46 L BUN/Creatinine Ratio 30 H Glucose 157 H Calculated Osmolality 293 Calcium 8.9 Corrected Calcium 9.5 Phosphorus 3.2 Magnesium 2.0 Total Bilirubin 0.4 AST 29 ALT 23 Alkaline Phosphatase 49 Total Protein 5.4 L Albumin 3.3 L Globulin 2.1 L Albumin/Globulin Ratio 1.6 ABG Interpretation ABG results: 01/01/25 20:19 ABG pH 7.29 L ABG pCO2 46 ABG pO2 240 H ABG HCO3 22 ABG O2 Saturation 100 H ABG Base Excess -5 L Quality Measures Quality Measures VTE prophylaxis Assessment & Plan Assessment Current Active Medications: Generic Name Dose Route Start Last Admin Trade Name Freq PRN Reason Stop Dose Admin Acetaminophen 650 mg 01/01/25 20:00 01/05/25 10:50 Acetaminophen 325 Mg Tablet PO 01/31/25 19:59 650 mg Q6H PRN Administration Fever >100.3 or pain 1-3 Amlodipine Besylate 10 mg 01/04/25 21:00 01/04/25 21:05 Amlodipine Besylate 5 Mg Tablet PO 02/03/25 20:59 10 mg HS KIP Administration Apixaban 5 mg 01/02/25 21:00 01/05/25 08:24 Apixaban 2.5 Mg Tablet PO 02/01/25 20:59 5 mg Q12H KIP Administration Buspirone HCl 10 mg 01/03/25 09:00 01/05/25 08:23 Buspirone Hcl 5 Mg Tablet PO 02/02/25 08:59 10 mg QDAY KIP Administration Dextrose 25 ml 01/02/25 12:37 Dextrose 50%-Water Inj 50 Ml Syringe IV 02/01/25 12:36 Q15MIN PRN BG 50-70 responsive npo pt Dextrose 50 ml 01/02/25 12:37 Dextrose 50%-Water Inj 50 Ml Syringe IV 02/01/25 12:36 Q15MIN PRN BG <50 OR BG <70 & pt unresponsive Glucagon 1 mg 01/02/25 12:37 Glucagon Inj 1 Mg Vial IM Q15MIN PRN BG <70, and no IV access Hydralazine HCl 50 mg 01/04/25 14:00 01/05/25 13:34 Hydralazine Hcl 25 Mg Tablet PO 02/03/25 13:59 50 mg TID KIP Administration Ceftriaxone Sodium/Dextrose 1 gm in 50 mls @ 100 mls/hr 01/02/25 09:00 01/05/25 09:15 Rocephin/D5w 1gm Iv Premix IV 01/09/25 08:59 Infused QDAY KIP Infusion Insulin Glargine 22 unit 01/04/25 21:00 01/04/25 21:08 Insulin Glargine (Lantus) 5 Unit/0.05 Ml (Per 5 Units) SC 02/03/25 20:59 22 unit HS KIP Administration Insulin Human Lispro 0 unit 01/02/25 21:00 01/05/25 12:36 Insulin Lispro (Admelog) 1 Unit/0.01 Ml Unit SC 02/01/25 20:59 Not Given ACHS [facility] Protocol Ipratropium [place] 0.5 mg 01/03/25 11:09 01/05/25 03:21 Ipratropium Rt 0.5 Mg/ 2.5 Ml Nebu INH 02/02/25 11:08 0.5 mg Q4HR PRN Administration SHORTNESS OF BREATH Levalbuterol HCl 0.31 mg 01/04/25 08:03 01/05/25 03:21 Levalbuterol Rt 0.31 Mg/3 Ml Nebu INH 02/02/25 11:08 0.31 mg Q4H PRN Administration WHEEZING Losartan Potassium 100 mg 01/05/25 11:30 01/05/25 13:35 Losartan Potassium 25 Mg Tablet PO 02/04/25 11:29 100 mg QDAY KIP Administration Methadone HCl 100 mg 01/02/25 09:00 01/05/25 08:22 Methadone Hcl 10 Mg Tablet PO 01/07/25 08:59 100 mg QDAY KIP Administration Metoprolol Succinate 25 mg 01/04/25 09:00 01/05/25 08:23 Metoprolol Succinate Xl 25 Mg Tabcr PO 02/03/25 08:59 25 mg QDAY KIP Administration Ondansetron HCl 4 mg 01/01/25 20:00 01/05/25 13:41 Ondansetron Inj 2 Mg/Ml Inj 2 Ml IV 01/31/25 19:59 4 mg Q6H PRN Administration NAUSEA OR VOMITING Protocol Pantoprazole Sodium 40 mg 01/02/25 10:30 01/05/25 08:23 Pantoprazole 40 Mg Tablet PO 02/01/25 10:29 40 mg QDAY KIP Administration Polyethylene Glycol 17 gm 01/05/25 11:30 01/05/25 12:33 Polyethylene Glycol 17 Gm Packet PO 02/04/25 11:29 Not Given QDAY KIP Prednisone 40 mg 01/05/25 09:00 01/05/25 08:23 Prednisone 20 Mg Tablet PO 02/04/25 08:59 40 mg QDAY KIP Administration Sennosides 1 tab 01/06/25 09:00 01/05/25 09:07 Senna Tablet PO 02/05/25 08:59 1 tab QDAY KIP Administration Protocol Sodium Chloride 3 ml 01/02/25 13:06 Sodium Chloride Rt [place] 0.9% 3 Ml Nebu INH 02/01/25 13:05 PRN PRN SOLN Plan The patient is a 64-year-old female with a previous medical history of COPD on 2 L, hypertension, diabetes mellitus type 2, Atrial fibrillation on Eliquis at home (last dose 01/01/2025), history of PE, Takotsubo cardiomyopathy and history of substance use disorder who was admitted for acute hypoxic respiratory failure secondary to COPD Exacerbation. #COPD exacerbation, improving #Acute hypoxic respiratory failure, resolved #PNA Patient has history of frequent COPD exacerbation and uses oxygen constantly. This exacerbation was provoked by physical exertion and from pulling out floor boards. Plan -Pending Blood Cultures Negative 48 hours -Sputum Culture GNR & epithelial cells-Pending ? Goal oxygen saturation level 88-92% ? Breathing treatment inhalations every 4 hours ? Prednisone 40 mg daily ? Ceftriaxone 1 g daily (01/01/2025-) ? Azithromycin 500 mg daily (01/01/2025?) #THEO on CKD improving THEO likely secondary to pre-renal causes given BUN/Cr ratio greater than 20 from poor oral intake. BUN 35, Cr 1.7, GFR 33 BUN/Cr 21. CKD given decreased GFR for several months including in October. On admission: 01/01/2025 creatinine 1.9, potassium 5.9, GFR 29. Creatinine week earlier is 1.4. Plan: ? Monitor daily CMP ? Avoid nephrotoxic agents ? Renally dose medications #Resistant Hypertension #Hypertensive urgency, resolved. Home blood pressure medications are lisinopril and metoprolol. Plan: -Losartan 100 daily -Amlodipine 10 mg HS -Hydralazine 50 mg TID - Continue current management, #History of Afib, stable Patient reports taking Eliquis at home. On telemetry patient is tachycardic in the 100s. Previous EKGs showed sinus rhythm. Most likely paroxysmal. Plan: -Metroplolol succinate 25 mg Qday - Eliquis 5 mg BID #Type 2 diabetes On admission, patient presented with elevated blood glucose levels with anion gap of 13 and negative ketones in UA. Given underlying disease, concern for metabolic acidosis, moving towards anion gap. Patient given Regular Insulin and Glargine increased to home does. Monitor fasting blood glucose . A1c 7.5 Plan: ? Insulin sliding scale ? Insulin glargine 26 units SC - Hypoglycemic protocols in place, blood sugar goals 100 [id number] #Normocytic Anemia Patient has a past medical history of normocytic anemia which ranges from 10.2- 9.7 hgb. 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 Less likely secondary to acute bleed as patient denied any hemtemsis or hempotysis. Denied blood in stool. Plan -Occult Blood-pending -Start Iron upon discharge #History of drug abuse Plan: ? Resumed home methadone #Hyperkalemia, resolved - help spironolactone due to hyperK Health maintenance: FEN: cardiac and renal diet DVT prophylaxis: Eliquis 5 twice daily GI prophylaxis: none Dispo: telemetry CODE STATUS: Full Code - Patient care was discussed with attending physician Dr. Scout Urena MD PGY-2
[2025-01-05] MEDS: INSULIN LISPRO (AdmeLOG) 1 UNIT/0.01 ML UNIT SC ×2 (17:11→21:25)
[2025-01-05] MEDS: INSULIN GLARGINE (Lantus) 5 UNIT/0.05 ML (PER 5 UNITS) 22 UNIT SC (21:25)
[2025-01-05] MEDS: amLODIPine BESYLATE 5 MG TABLET 10 MG PO (21:27)
[2025-01-06] VITALS (15 sets, daily range): BP systolic 106–131; BP diastolic 60–65; PULSE 56–72; RESP 13–32; TEMP 35.9–36.6; O2SAT 93–98; BMI 23.8
[2025-01-06] MEDS: hydrALAZINE HCL 25 MG TABLET 50 MG PO ×3 (05:54→21:01)
[2025-01-06 05:58] LABS: Basophils % (Auto) 0 % (0-2.5); Eosinophils % (Auto) 0 % (0-10); Hematocrit 26.2 % (36.0-46.0); Immature Granulocytes % (Auto) 4 % (0-0); Immature Granulocytes Auto 0.53 Thou/mm3 (0.00-0.00); Lymphocytes # (Auto) 2.3 Thou/mm3 (1.0-4.8); Lymphocytes % (Auto) 16 % (10-50); Mean Corpuscular HGB Conc 31.7 g/dl (31.0-37.0); Mean Corpuscular Hemoglobin 27.3 pg (25.0-35.0); Mean Corpuscular Volume 86 fL (80-100); Monocytes % (Auto) 7 % (0-12); Neutrophils # (Auto) 10.7 Thou/mm3 (1.8-7.7); Neutrophils % (Auto) 73 % (37-80); Nucleated Red Blood Cell % 0 /100 WBC (0); Platelet Count 254 Thou/mm3 (140-440); Red Blood Count 3.04 Miln/mm3 (4.00-5.20); White Blood Count 14.6 Thou/mm3 (3.6-11.0)
[2025-01-06 06:00] LABS: Hemoglobin 8.3 g/dL (12.0-16.0)
[2025-01-06 06:30] LABS: Alanine Aminotransferase 29 U/L (10-49); Albumin, Serum 3.1 gm/dL (3.4-4.8); Albumin/Globulin Ratio 1.6 (1.2-2.2); Alkaline Phosphatase 45 U/L (46-116); Anion Gap 4 (7-16); Aspartate Amino Transferase 24 U/L (0-34); BUN/Creatinine Ratio 36 Ratio (12-20); Bilirubin,Total 0.4 mg/dL (0.3-1.2); Blood Urea Nitrogen 43 mg/dL (9-23); Calcium 8.5 mg/dL (8.3-10.6); Calcium (Corrected) 9.2 mg/dL (8.5-10.1); Chloride 107 mMol/L (98-107); Creatinine (Component) 1.2 mg/dL (0.6-1.3); Estimated Creatinine Clearance 41.4 mL/min (>60); Glucose 178 mg/dL (74-106); Osmolality,Calculated 290 (275-295); Potassium 4.5 mMol/L (3.4-5.1); Sodium 138 mMol/L (136-145); Total Protein 5.1 gm/dL (5.7-8.2); eGFR 51 See Note
[2025-01-06] MEDS: IPRATROPIUM RT 0.5 MG/ 2.5 ML NEBU INH ×3 (07:13→22:25)
[2025-01-06] MEDS: LEVALBUTEROL RT 0.31 MG/3 ML NEBU INH ×3 (07:13→22:25)
[2025-01-06] MEDS: INSULIN LISPRO (AdmeLOG) 1 UNIT/0.01 ML UNIT SC ×3 (07:25→21:01)
[2025-01-06] MEDS: BusPIRone HCL 5 MG TABLET 10 MG PO (09:51)
[2025-01-06] MEDS: APIXABAN 2.5 MG TABLET 5 MG PO ×2 (09:51→20:55)
[2025-01-06] MEDS: LOSARTAN POTASSIUM 25 MG TABLET 100 MG PO (09:51)
[2025-01-06] MEDS: predniSONE 20 MG TABLET 40 MG PO (09:51)
[2025-01-06] MEDS: METOPROLOL SUCCINATE XL 25 MG TABCR PO (09:52)
[2025-01-06] MEDS: DOXYCYCLINE INJ 100 MG in SODIUM CHLORIDE 0.9% (POP) 100 ML IV ×2 (09:52→20:55)
[2025-01-06] MEDS: SENNA TABLET 1 TAB PO (09:52)
[2025-01-06] MEDS: PANTOPRAZOLE 40 MG TABLET PO ×2 (09:52→20:55)
[2025-01-06] MEDS: POLYETHYLENE GLYCOL 17 GM PACKET PO (09:52)
[2025-01-06] MEDS: METHADONE HCL 10 MG TABLET 100 MG PO (09:53)
[2025-01-06] MEDS: ONDANSETRON INJ 2 MG/ML INJ 2 ML 4 MG IV (09:57)
[2025-01-06] MEDS: ACETAMINOPHEN 325 MG TABLET 650 MG PO (09:57)
--- NOTE | 2025-01-06 09:58 | PD.NEPHPROG ---
Documentation for date of: 01/06/25 Subjective Subjective Interval history: Ms. Diaz is a 64-year-old female with a history of COPD (on 2 L O2 at home), A-fib, hypertension, type 2 diabetes, Takotsubo cardiomyopathy, and substance abuse presented to the ED on 01/01/2025 with worsening weakness and shortness of breath for several days, notably worsening with exertion. She denied fever or chills but had a dry cough with minimal phlegm. In the ED, she was afebrile (97.5?F), with hypertensive urgency (BP 223/139), heart rate (158), and low oxygen saturation (88% on 8 L O2). Labs revealed elevated WBC (25.4), potassium (5.9), BUN (34), creatinine (1.9), and glucose (460). Chest X-ray showed mild vascular congestion, and there was no evidence of pneumonia or pulmonary edema. She received methylprednisolone, albuterol/ipratropium inhalation, nitroglycerin paste, and insulin. BiPAP was initiated with settings IPAP 10, EPAP 5, and FiO2 80%. She was admitted for acute hypoxic respiratory failure secondary to COPD exacerbation. HD2 On day 2, she received continued treatment for her COPD exacerbation with steroids and antibiotics (azithromycin and ceftriaxone). Consideration was made to discontinue Rocephin (ceftriaxone) by the next day. She continues DuoNeb treatments, which are showing improvement in her symptoms. Labs revealed hyperkalemia (6.2), likely due to her home medication SPIRONOLACTONE, which was held. She was managed according to the hyperkalemia protocol, and potassium levels will be followed up. Additionally, hyperglycemia was noted with fluctuating glucose levels, so she received multiple subcutaneous insulin doses. Her glucose is labile and dropping quickly, so her home insulin regimen will be restarted, and close monitoring is needed, potentially adjusting the insulin doses due to the ongoing steroid use. She has hypertension on home METOPROLOL and LISINOPRIL. LISINOPRIL initially held due to acute kidney injury (THEO) which is resolving, now on AMLODIPINE 10 mg, METOPROLOL 25 mg daily, and LOSARTAN 50 mg daily. Today BP 162/88, HR 84. 01/05/2025 examined at bedside. SOB improving, currently on 2 L NC. Had several episodes of vomiting, feels constipated, added COLACE and stool softeners. Renal function proving, CR 1.3, BUN 39, EGFR 46. 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 Will add LOSARTAN 100 mg daily. 01/06/2025 patient currently seen in telemetry. Still having significant vomiting and nausea. Feels something stuck in the throat. Dr. Ludwig will be consulted. Had history of esophageal stricture and dilation 6 months ago. Probably she had the same episode now. Labs, medications reviewed. Creatinine slightly better. Spoke to Dr. Butterfield Review of Systems Review of Systems Narrative Review of Systems: CONSTITUTIONAL: Patient denies any fever, chills. Complaining of fatigue HEENT: Denies any visual disturbances or hearing problems. CARDIOVASCULAR: Patient denies any chest pain, swelling in the lower extremities. PULMONARY: Patient complaining of shortness of breath GASTROINTESTINAL: Complaining of nausea, vomiting, dysphagia GENITOURINARY: Patient denies any urinary symptoms of burning or frequency or hematuria, denies any form in the urine. SKIN: Denies any rash. MUSCULOSKELETAL: Denies any muscular skeletal problems of joint pains. NEUROLOGICAL: Denies any neurological problems of strokes, seizures or confusion. Denies any memory problems. PSYCHIATRIC: Denies any depression or anxiety. LYMPHATICS : No lymphadenopathy Exam Vital Signs Temp Pulse Resp BP Pulse Ox O2 Del Method O2 Flow Rate 36.1 C 72 16 121/62 95 Nasal Cannula 2 01/06/25 07:35 01/06/25 09:52 01/06/25 07:35 01/06/25 09:52 01/06/25 07:35 01/06/25 07:35 01/06/25 07:35 FiO2 23 01/04/25 20:10 Narrative Exam GENERAL APPEARANCE: Patient currently seen in telemetry. Uncomfortable from dysphagia NECK: Neck supple, no JVD or bruit CARDIOVASCULAR: Heart regular, no murmurs LUNGS/CHEST: Few rhonchi and wheeze noted bilaterally ABDOMEN: Soft, nontender, nondistended. No masses. Normal bowel sounds. EXTREMITIES: No edema, clubbing or cyanosis. SKIN: Skin exam normal without any rashes MUSCULOSKELETAL: Able to move all her extremities NEUROLOGICAL : No neurological deficits Objective Labs 01/06/25 04:55 01/06/25 04:55 Labs: Laboratory Results - last 24 hr 01/06/25 04:55 WBC 14.6 H RBC 3.04 L Hgb 8.3 L Hct 26.2 L MCV 86 MCH 27.3 MCHC 31.7 RDW Std Deviation 48.0 H Plt Count 254 Neut % (Auto) 73 Lymph % (Auto) 16 [place] % (Auto) 7 Eos % (Auto) 0 Baso % (Auto) 0 Neut # (Auto) 10.7 H Lymph # (Auto) 2.3 [place] # (Auto) 1.0 H Eos # (Auto) 0.0 Baso # (Auto) 0.0 Immature Gran # (Auto) 0.53 H Absolute Nucleated RBC 0.00 Immature Gran % 4 H Nucleated RBC % 0 Sodium 138 Potassium 4.5 Chloride 107 Carbon Dioxide 27.0 Anion Gap 4 L BUN 43 H Creatinine 1.2 Estim Creat Clear Calc 41.4 L eGFR 51 L BUN/Creatinine Ratio 36 H Glucose 178 H Calculated Osmolality 290 Calcium 8.5 Corrected Calcium 9.2 Total Bilirubin 0.4 AST 24 ALT 29 Alkaline Phosphatase 45 L Total Protein 5.1 L Albumin 3.1 L Globulin 2.0 L Albumin/Globulin Ratio 1.6 ABG Interpretation ABG results: 01/01/25 20:19 ABG pH 7.29 L ABG pCO2 46 ABG pO2 240 H ABG HCO3 22 ABG O2 Saturation 100 H ABG Base Excess -5 L Assessment & Plan Additional Assessment & Plan Additional Plan: 64-year-old female with a history of COPD (on 2 L O2 at home), A-fib, hypertension, type 2 diabetes, Takotsubo cardiomyopathy, and substance abuse presented to the ED on 01/01/2025 with worsening weakness and shortness of breath for several days, notably worsening with exertion. Nephrology team consulted for management of THEO. THEO with ?CKD Creatinine slowly improving. Blood pressure is better. Hypertension Today BP 147/72, HR 64. ? Daily vitals ? Continue AMLODIPINE 10 mg daily ? Continue METOPROLOL 25 mg daily ? Continue HYDRALAZINE PRN ? on LOSARTAN [address] Ludwig was consulted COPD exacerbation Acute hypoxic respiratory failure History of Afib, stable Type 2 diabetes Metabolic Acidosis, non anio gap, Resolved Normocytic Anemia History of drug abuse Hyperkalemia, resolved
--- NOTE | 2025-01-06 12:14 | PC.NURSE ---
Dr. Puga notified of positive OBS
--- NOTE | 2025-01-06 12:58 | ESPR_ITS ---
<Statement entered by Ashok Butterfield MD - 01/11/25 12:56> I reviewed above note and agree with findings and plans. I have also personally examined the patient with medicine team and went over assessment and plan with medical team including industrial design intern and resident physician. Documentation for date of: 01/06/25 Subjective Subjective Interval history: No overnight events. Patinet complained of dysphagia with solids and liquids. Patient has a past medical history of esophageal stenosis with a recent dilation on 08/04/2024.1 bowel movement overnight. Patient's hemoglobin continues to flutuate during this hospital admission from hgb of 10.4-->8.3. Positive Occult blood test with dark, almost black stool noted. Gastroenterology consulted, Dr. Ludwig. NPO after midnight. Exam Vital Signs Temp Pulse Resp BP Pulse Ox O2 Del Method O2 Flow Rate 97.0 F 66 16 122/63 95 Nasal Cannula 2 01/06/25 12:00 01/06/25 12:00 01/06/25 12:00 01/06/25 12:00 01/06/25 12:00 01/06/25 12:00 01/06/25 12:00 FiO2 23 01/04/25 20:10 Narrative Exam General Appearance: Alert & Oriented X3, well-nourished female who is lying in bed in mild discomfort. HEENT: Skull symmetrical and atraumatic. Conjunctivae pin and moist. Pupils equal, round, reactive to light and accommodation (PERRL). External ear without lesion or discharge. Straight, nares patient, mucosa pink, no discharge. No thyroid nodule appreciated. No cervical lymphadenopathy. Cardio: Normal Rate and Rhythm with S1 and S2 heart sounds. No murmurs or extra heart sounds auscultated. No bruits on carotid auscultation. No peripheral edema or cyanosis. Lungs: Symmetric with good expansion. Chest and back non-tender. Breath sounds vesicular with improved wheezing Abdomen: Non-tender, Non-distended, Normal Reactive Bowel Sounds Neuro: Alert, cooperative, oriented to person, place, and time. Speech clear. CN grossly intact. Upper motor strength 5/5 and Lower motor strength 5/5. Sensation intact. Objective Labs 01/06/25 04:55 01/06/25 04:55 Labs: Laboratory Results - last 24 hr 01/06/25 04:55 WBC 14.6 H RBC 3.04 L Hgb 8.3 L Hct 26.2 L MCV 86 MCH 27.3 MCHC 31.7 RDW Std Deviation 48.0 H Plt Count 254 Neut % (Auto) 73 Lymph % (Auto) 16 [place] % (Auto) 7 Eos % (Auto) 0 Baso % (Auto) 0 Neut # (Auto) 10.7 H Lymph # (Auto) 2.3 [place] # (Auto) 1.0 H Eos # (Auto) 0.0 Baso # (Auto) 0.0 Immature Gran # (Auto) 0.53 H Absolute Nucleated RBC 0.00 Immature Gran % 4 H Nucleated RBC % 0 Sodium 138 Potassium 4.5 Chloride 107 Carbon Dioxide 27.0 Anion Gap 4 L BUN 43 H Creatinine 1.2 Estim Creat Clear Calc 41.4 L eGFR 51 L BUN/Creatinine Ratio 36 H Glucose 178 H Calculated Osmolality 290 Calcium 8.5 Corrected Calcium 9.2 Total Bilirubin 0.4 AST 24 ALT 29 Alkaline Phosphatase 45 L Total Protein 5.1 L Albumin 3.1 L Globulin 2.0 L Albumin/Globulin Ratio 1.6 ABG Interpretation ABG results: 01/01/25 20:19 ABG pH 7.29 L ABG pCO2 46 ABG pO2 240 H ABG HCO3 22 ABG O2 Saturation 100 H ABG Base Excess -5 L Quality Measures Quality Measures VTE prophylaxis Assessment & Plan Assessment Current Active Medications: Generic Name Dose Route Start Last Admin Trade Name Freq PRN Reason Stop Dose Admin Acetaminophen 650 mg 01/01/25 20:00 01/06/25 09:57 Acetaminophen 325 Mg Tablet PO 01/31/25 19:59 650 mg Q6H PRN Administration Fever >100.3 or pain 1-3 Amlodipine Besylate 10 mg 01/04/25 21:00 01/05/25 21:27 Amlodipine Besylate 5 Mg Tablet PO 02/03/25 20:59 10 mg HS KIP Administration Apixaban 5 mg 01/02/25 21:00 01/06/25 09:51 Apixaban 2.5 Mg Tablet PO 02/01/25 20:59 5 mg Q12H KIP Administration Buspirone HCl 10 mg 01/03/25 09:00 01/06/25 09:51 Buspirone Hcl 5 Mg Tablet PO 02/02/25 08:59 10 mg QDAY KIP Administration Dextrose 25 ml 01/02/25 12:37 Dextrose 50%-Water Inj 50 Ml Syringe IV 02/01/25 12:36 Q15MIN PRN BG 50-70 responsive npo pt Dextrose 50 ml 01/02/25 12:37 Dextrose 50%-Water Inj 50 Ml Syringe IV 02/01/25 12:36 Q15MIN PRN BG <50 OR BG <70 & pt unresponsive Glucagon 1 mg 01/02/25 12:37 Glucagon Inj 1 Mg Vial IM Q15MIN PRN BG <70, and no IV access Hydralazine HCl 50 mg 01/04/25 14:00 01/06/25 05:54 Hydralazine Hcl 25 Mg Tablet PO 02/03/25 13:59 50 mg TID KIP Administration Doxycycline Hyclate 100 mg/ 100 mls @ 100 mls/hr 01/06/25 09:00 01/06/25 09:52 Sodium Chloride IV 01/15/25 07:57 100 mls/hr BID KIP Administration Insulin Glargine 22 unit 01/04/25 21:00 01/05/25 21:25 Insulin Glargine (Lantus) 5 Unit/0.05 Ml (Per 5 Units) SC 02/03/25 20:59 22 unit HS KIP Administration Insulin Human Lispro 0 unit 01/02/25 21:00 01/06/25 11:28 Insulin Lispro (Admelog) 1 Unit/0.01 Ml Unit SC 02/01/25 20:59 Not Given ACHS [facility] Protocol Ipratropium [place] 0.5 mg 01/03/25 11:09 01/06/25 07:13 Ipratropium Rt 0.5 Mg/ 2.5 Ml Nebu INH 02/02/25 11:08 0.5 mg Q4HR PRN Administration SHORTNESS OF BREATH Levalbuterol HCl 0.31 mg 01/04/25 08:03 01/06/25 07:13 Levalbuterol Rt 0.31 Mg/3 Ml Nebu INH 02/02/25 11:08 0.31 mg Q4H PRN Administration WHEEZING Losartan Potassium 100 mg 01/05/25 11:30 01/06/25 09:51 Losartan Potassium 25 Mg Tablet PO 02/04/25 11:29 100 mg QDAY KIP Administration Methadone HCl 100 mg 01/02/25 09:00 01/06/25 09:53 Methadone Hcl 10 Mg Tablet PO 01/07/25 08:59 100 mg QDAY KIP Administration Metoprolol Succinate 25 mg 01/04/25 09:00 01/06/25 09:52 Metoprolol Succinate Xl 25 Mg Tabcr PO 02/03/25 08:59 25 mg QDAY KIP Administration Ondansetron HCl 4 mg 01/05/25 16:06 01/06/25 09:57 Ondansetron Inj 2 Mg/Ml Inj 2 Ml IV 02/04/25 16:05 4 mg Q8HR PRN Administration NAUSEA OR VOMITING Protocol Pantoprazole Sodium 40 mg 01/02/25 10:30 01/06/25 09:52 Pantoprazole 40 Mg Tablet PO 02/01/25 10:29 40 mg QDAY KIP Administration Polyethylene Glycol 17 gm 01/05/25 11:30 01/06/25 09:52 Polyethylene Glycol 17 Gm Packet PO 02/04/25 11:29 17 gm QDAY KIP Administration Prednisone 40 mg 01/05/25 09:00 01/06/25 09:51 Prednisone 20 Mg Tablet PO 02/04/25 08:59 40 mg QDAY KIP Administration Sennosides 1 tab 01/06/25 09:00 01/06/25 09:52 Senna Tablet PO 02/05/25 08:59 1 tab QDAY KIP Administration Protocol Sodium Chloride 3 ml 01/02/25 13:06 Sodium Chloride Rt [place] 0.9% 3 Ml Nebu INH 02/01/25 13:05 PRN PRN SOLN Plan The patient is a 64-year-old female with a previous medical history of COPD on 2 L, hypertension, diabetes mellitus type 2, Atrial fibrillation on Eliquis at home (last dose 01/01/2025), history of PE, Takotsubo cardiomyopathy and history of substance use disorder who was admitted for acute hypoxic respiratory failure secondary to COPD Exacerbation. #GI bleed #Normocytic Anemia Patient has a past medical history of normocytic anemia which ranges from 10.2- 9.7 hgb. 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 Less likely secondary to acute bleed as patient denied any hemtemsis or hempotysis. Denied blood in stool. Plan -NPO after midnight -Occult Blood-Positive -Start Iron upon discharge -Gastroenterology Consulted, Dr. Ludwig, appreciate recommendations. #COPD exacerbation, improving #Acute hypoxic respiratory failure, resolved #PNA Patient has history of frequent COPD exacerbation and uses oxygen constantly. This exacerbation was provoked by physical exertion and from pulling out floor boards. Plan -Pending Blood Cultures Negative 48 hours -Sputum Culture GNR & epithelial cells-E. Coli ? Goal oxygen saturation level 88-92% ? Breathing treatment inhalations every 6 hours ? Prednisone 40 mg daily oral 01/04/2025-Day 3 -Doxycylcine 100 mg IVP BID 01/06/2025 ? Ceftriaxone 1 g daily (01/01/2025-01/05/2025) ? Azithromycin 500 mg daily (01/01/2025?) #THEO on CKD improving THEO likely secondary to pre-renal causes given BUN/Cr ratio greater than 20 from poor oral intake. BUN 35, Cr 1.7, GFR 33 BUN/Cr 21. CKD given decreased GFR for several months including in October. Diagnostics: On admission: 01/01/2025 creatinine 1.9, potassium 5.9, GFR 29-->01/06/2025 BUN 43 and Cr 1.2 GFR 51 US Renal: moderate bilateral renal parenchymal scar formation Plan: ? Monitor daily CMP ? Avoid nephrotoxic agents ? Renally dose medications #Resistant Hypertension, improved #Hypertensive urgency, resolved. #Hypertension Home blood pressure medications are lisinopril and metoprolol. Plan: -Losartan 100 daily -Amlodipine 10 mg HS -Hydralazine 50 mg TID -May given hydralazine 10 mg IVP if needed - Continue current management, #History of Afib, stable Patient reports taking Eliquis at home. On telemetry patient is tachycardic in the 100s. Previous EKGs showed sinus rhythm. Most likely paroxysmal. Plan: -Metroplolol succinate 25 mg Qday - Eliquis 5 mg BID, on HOLD #Type 2 diabetes Insulin Dependent On admission, patient presented with elevated blood glucose levels with anion gap of 13 and negative ketones in UA. Given underlying disease, concern for metabolic acidosis, moving towards anion gap. Patient given Regular Insulin and Glargine increased to home does. Monitor fasting blood glucose . A1c 7.5 Plan: ? Insulin sliding scale ? Insulin glargine 22 units SC - Hypoglycemic protocols in place, blood sugar goals 100 [id number] #History of drug abuse Plan: ? Resumed home methadone 100 mg po once a day, this has been patient's current dose for several years. #History of Esophageal Strictures Patient complaining of dysphagia, this is a chronic condition given recent dilation in 07/2024 showing esophagitis likely secondary to GERD vs Niharika vs less likely secondary to bisphophonates as there is no history of use Plan -Consider Nystatin swish and swallow #Hyperkalemia, resolved Health maintenance: FEN: cardiac and renal diet DVT prophylaxis: Eliquis 5 twice daily, HOLD GI prophylaxis: none Dispo: telemetry CODE STATUS: Full Code - The patient's plan was discussed with attending Dr. Scout Puga MD PGY1 Internal Medicine
[2025-01-06 13:40] LABS: OBS Card Lot # 23001; OBS Developer Lot # 28005; OBS Performed By MILLB; OBS QC OK? Yes; Occult Blood, Stool Positive (Negative)
--- NOTE | 2025-01-06 13:43 | PD.IMCONS ---
HPI Data of Consult Requesting Physician: Rylee Samayoa MD Primary Care Provider: Physician No Primary/Family Consult Narrative cc:: cc: Rylee Samayoa MD Meds Home Medications and Allergies Home Medications ?Medication ?Instructions ?Recorded ?Confirmed ?Type methadone 10 mg/5 mL oral solution 100 mg PO QDAY 02/07/24 01/03/25 History nitroglycerin 0.4 mg sublingual 0.4 mg buccal Q5MIN PRN Chest Pain 02/07/24 01/03/25 History tablet apixaban 5 mg tablet (Eliquis) 5 mg PO Q12H 01/02/25 01/02/25 History insulin glargine 100 unit/mL (3 26 unit subcut QAM 01/03/25 01/03/25 History mL) subcutaneous pen (Basaglar KwikPen U-100 Insulin) Allergies Allergy/AdvReac Type Severity Reaction Status Date / Time codeine Allergy Severe RASH Verified 12/25/24 05:46 diphenhydramine HCl Allergy Severe Hives Verified 12/25/24 05:46 egg Allergy Severe Rash Verified 12/25/24 05:46 Penicillins Allergy Severe SWELLING, Verified 12/25/24 05:46 RESP DISTRESS pentazocine (From [place]win) Allergy Severe Hives Verified 12/25/24 05:46 Exam Vital Signs Temp Pulse Resp BP Pulse Ox O2 Del Method O2 Flow Rate 97.0 F 66 16 122/63 95 Nasal Cannula 2 01/06/25 12:00 01/06/25 12:00 01/06/25 12:00 01/06/25 12:00 01/06/25 12:00 01/06/25 12:00 01/06/25 12:00 FiO2 23 01/04/25 20:10 Results Labs 01/06/25 04:55 01/06/25 04:55 Labs: Short CBC 01/06/25 Range/Units 04:55 WBC 14.6 H (3.6-11.0) Thou/mm3 Hgb 8.3 L (12.0-16.0) g/dL Hct 26.2 L (36.0-46.0) % Plt Count 254 (140-440) Thou/mm3 BMP 01/06/25 04:55 Sodium 138 Potassium 4.5 Chloride 107 Carbon Dioxide 27.0 BUN 43 H Creatinine 1.2 Glucose 178 H Calcium 8.5 Liver Function 01/06/25 Range/Units 04:55 Total Bilirubin 0.4 (0.3-1.2) mg/dL AST 24 (0-34) U/L ALT 29 (10-49) U/L Alkaline Phosphatase 45 L (46-116) U/L Albumin 3.1 L (3.4-4.8) gm/dL ABG Interpretation ABG results: 01/01/25 20:19 ABG pH 7.29 L ABG pCO2 46 ABG pO2 240 H ABG HCO3 22 ABG O2 Saturation 100 H ABG Base Excess -5 L
[2025-01-06] MEDS: INSULIN GLARGINE (Lantus) 5 UNIT/0.05 ML (PER 5 UNITS) 22 UNIT SC (20:56)
[2025-01-07] VITALS (24 sets, daily range): BP systolic 118–186; BP diastolic 60–99; PULSE 52–87; RESP 10–20; TEMP 35.9–36.6; O2SAT 94–100; BMI 23.8
[2025-01-07 06:03] LABS: Basophils % (Auto) 0 % (0-2.5); Eosinophils % (Auto) 0 % (0-10); Immature Granulocytes % (Auto) 3 % (0-0); Immature Granulocytes Auto 0.42 Thou/mm3 (0.00-0.00); Lymphocytes # (Auto) 2.1 Thou/mm3 (1.0-4.8); Lymphocytes % (Auto) 15 % (10-50); Mean Corpuscular HGB Conc 30.7 g/dl (31.0-37.0); Mean Corpuscular Hemoglobin 26.5 pg (25.0-35.0); Mean Corpuscular Volume 86 fL (80-100); Monocytes # (Auto) 0.9 Thou/mm3 (0.0-0.8); Monocytes % (Auto) 6 % (0-12); Neutrophils # (Auto) 10.4 Thou/mm3 (1.8-7.7); Neutrophils % (Auto) 75 % (37-80); Nucleated Red Blood Cell % 0 /100 WBC (0); Platelet Count 220 Thou/mm3 (140-440); RDW Standard Deviation 47.8 fL (36.4-46.3); Red Blood Count 3.13 Miln/mm3 (4.00-5.20); White Blood Count 13.9 Thou/mm3 (3.6-11.0)
[2025-01-07 06:29] LABS: Alanine Aminotransferase 41 U/L (10-49); Albumin, Serum 3.2 gm/dL (3.4-4.8); Albumin/Globulin Ratio 1.5 (1.2-2.2); Alkaline Phosphatase 43 U/L (46-116); Anion Gap 7 (7-16); Aspartate Amino Transferase 31 U/L (0-34); BUN/Creatinine Ratio 34 Ratio (12-20); Bilirubin,Total 0.4 mg/dL (0.3-1.2); Blood Urea Nitrogen 48 mg/dL (9-23); Calcium 8.7 mg/dL (8.3-10.6); Calcium (Corrected) 9.3 mg/dL (8.5-10.1); Carbon Dioxide 25.8 mMol/L (20.0-31.0); Chloride 105 mMol/L (98-107); Creatinine (Component) 1.4 mg/dL (0.6-1.3); Estimated Creatinine Clearance 35.5 mL/min (>60); Globulin 2.1 gm/dL (2.3-3.5); Glucose 149 mg/dL (74-106); Magnesium 1.9 mg/dL (1.6-2.6); Osmolality,Calculated 291 (275-295); Phosphorous 2.7 mg/dL (2.4-5.1); Sodium 138 mMol/L (136-145); Total Protein 5.3 gm/dL (5.7-8.2); eGFR 42 See Note
[2025-01-07 07:11] LABS: Hemoglobin 8.3 g/dL (12.0-16.0)
--- NOTE | 2025-01-07 08:35 | ESPR_ITS ---
Documentation for date of: 01/07/25 Subjective Subjective Interval history: Ms. Diaz is a 64-year-old female with a history of COPD (on 2 L O2 at home), A-fib, hypertension, type 2 diabetes, Takotsubo cardiomyopathy, and substance abuse presented to the ED on 01/01/2025 with worsening weakness and shortness of breath for several days, notably worsening with exertion. She denied fever or chills but had a dry cough with minimal phlegm. In the ED, she was afebrile (97.5?F), with hypertensive urgency (BP 223/139), heart rate (158), and low oxygen saturation (88% on 8 L O2). Labs revealed elevated WBC (25.4), potassium (5.9), BUN (34), creatinine (1.9), and glucose (460). Chest X-ray showed mild vascular congestion, and there was no evidence of pneumonia or pulmonary edema. She received methylprednisolone, albuterol/ipratropium inhalation, nitroglycerin paste, and insulin. BiPAP was initiated with settings IPAP 10, EPAP 5, and FiO2 80%. She was admitted for acute hypoxic respiratory failure secondary to COPD exacerbation. HD2 On day 2, she received continued treatment for her COPD exacerbation with steroids and antibiotics (azithromycin and ceftriaxone). Consideration was made to discontinue Rocephin (ceftriaxone) by the next day. She continues DuoNeb treatments, which are showing improvement in her symptoms. Labs revealed hyperkalemia (6.2), likely due to her home medication SPIRONOLACTONE, which was held. She was managed according to the hyperkalemia protocol, and potassium levels will be followed up. Additionally, hyperglycemia was noted with fluctuating glucose levels, so she received multiple subcutaneous insulin doses. Her glucose is labile and dropping quickly, so her home insulin regimen will be restarted, and close monitoring is needed, potentially adjusting the insulin doses due to the ongoing steroid use. She has hypertension on home METOPROLOL and LISINOPRIL. LISINOPRIL initially held due to acute kidney injury (THEO) which is resolving, now on AMLODIPINE 10 mg, METOPROLOL 25 mg daily, and LOSARTAN 50 mg daily. Today BP 162/88, HR 84. 01/05/2025 examined at bedside. SOB improving, currently on 2 L NC. Had several episodes of vomiting, feels constipated, added COLACE and stool softeners. Renal function proving, CR 1.3, BUN 39, EGFR 46. 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 Will add LOSARTAN 100 mg daily. 01/06/2025 patient currently seen in telemetry. Still having significant vomiting and nausea. Feels something stuck in the throat. Dr. Ludwig will be consulted. Had history of esophageal stricture and dilation 6 months ago. Probably she had the same episode now. Labs, medications reviewed. Creatinine slightly better. Spoke to Dr. Butterfield 01/07/2025 Examined at bedside. Doing well today. Denies fever, chills, headaches, chest pain, sob, cough, GI or urinary symptoms. CR 1.4 slightly up as she is NPO for EGD today. Will continur with IVF for now. Exam Vital Signs Temp Pulse Resp BP Pulse Ox O2 Del Method O2 Flow Rate 96.7 F L 58 L 12 118/68 98 Nasal Cannula 2 01/07/25 04:00 01/07/25 04:00 01/07/25 04:00 01/07/25 04:00 01/07/25 04:00 01/07/25 04:00 01/07/25 04:00 FiO2 23 01/04/25 20:10 Narrative Exam GENERAL APPEARANCE: Patient currently seen in telemetry. Uncomfortable from dysphagia NECK: Neck supple, no JVD or bruit CARDIOVASCULAR: Heart regular, no murmurs LUNGS/CHEST: Few rhonchi and wheeze noted bilaterally ABDOMEN: Soft, nontender, nondistended. No masses. Normal bowel sounds. EXTREMITIES: No edema, clubbing or cyanosis. SKIN: Skin exam normal without any rashes MUSCULOSKELETAL: Able to move all her extremities NEUROLOGICAL : No neurological deficits Objective Labs 01/07/25 04:52 01/07/25 04:52 Labs: Laboratory Results - last 24 hr 01/06/25 01/07/25 09:00 04:52 WBC 13.9 H RBC 3.13 L Hgb 8.3 L Hct 27.0 L MCV 86 MCH 26.5 MCHC 30.7 L RDW Std Deviation 47.8 H Plt Count 220 D Neut % (Auto) 75 Lymph % (Auto) 15 [place] % (Auto) 6 Eos % (Auto) 0 Baso % (Auto) 0 Neut # (Auto) 10.4 H Lymph # (Auto) 2.1 [place] # (Auto) 0.9 H Eos # (Auto) 0.0 Baso # (Auto) 0.0 Immature Gran # (Auto) 0.42 H Absolute Nucleated RBC 0.00 Immature Gran % 3 H Nucleated RBC % 0 Sodium 138 Potassium 5.0 D Chloride 105 Carbon Dioxide 25.8 Anion Gap 7 BUN 48 H Creatinine 1.4 H Estim Creat Clear Calc 35.5 L eGFR 42 L BUN/Creatinine Ratio 34 H Glucose 149 H Calculated Osmolality 291 Calcium 8.7 Corrected Calcium 9.3 Phosphorus 2.7 Magnesium 1.9 Total Bilirubin 0.4 AST 31 ALT 41 Alkaline Phosphatase 43 L Total Protein 5.3 L Albumin 3.2 L Globulin 2.1 L Albumin/Globulin Ratio 1.5 Stool Occult Blood Positive A ABG Interpretation ABG results: 01/01/25 20:19 ABG pH 7.29 L ABG pCO2 46 ABG pO2 240 H ABG HCO3 22 ABG O2 Saturation 100 H ABG Base Excess -5 L Quality Measures Quality Measures VTE prophylaxis Assessment & Plan Assessment Current Active Medications: Generic Name Dose Route Start Last Admin Trade Name Freq PRN Reason Stop Dose Admin Acetaminophen 650 mg 01/01/25 20:00 01/06/25 09:57 Acetaminophen 325 Mg Tablet PO 01/31/25 19:59 650 mg Q6H PRN Administration Fever >100.3 or pain 1-3 Amlodipine Besylate 10 mg 01/04/25 21:00 01/05/25 21:27 Amlodipine Besylate 5 Mg Tablet PO 02/03/25 20:59 10 mg HS KIP Administration Apixaban 5 mg 01/02/25 21:00 01/06/25 20:55 Apixaban 2.5 Mg Tablet PO 02/01/25 20:59 5 mg Q12H KIP Administration Buspirone HCl 10 mg 01/03/25 09:00 01/06/25 09:51 Buspirone Hcl 5 Mg Tablet PO 02/02/25 08:59 10 mg QDAY KIP Administration Dextrose 25 ml 01/02/25 12:37 Dextrose 50%-Water Inj 50 Ml Syringe IV 02/01/25 12:36 Q15MIN PRN BG 50-70 responsive npo pt Dextrose 50 ml 01/02/25 12:37 Dextrose 50%-Water Inj 50 Ml Syringe IV 02/01/25 12:36 Q15MIN PRN BG <50 OR BG <70 & pt unresponsive Glucagon 1 mg 01/02/25 12:37 Glucagon Inj 1 Mg Vial IM Q15MIN PRN BG <70, and no IV access Hydralazine HCl 50 mg 01/04/25 14:00 01/07/25 04:20 Hydralazine Hcl 25 Mg Tablet PO 02/03/25 13:59 Not Given TID KIP Doxycycline Hyclate 100 mg/ 100 mls @ 100 mls/hr 01/06/25 09:00 01/06/25 20:55 Sodium Chloride IV 01/15/25 07:57 100 mls/hr BID KIP Administration Magnesium Sulfate 2 gm in 50 mls @ 25 mls/hr 01/07/25 07:17 Magnesium Sulfate Ivpb IV 01/07/25 09:16 X1 ONE Sodium Chloride 1,000 mls @ 80 mls/hr 01/07/25 07:18 Ns IV 01/07/25 19:47 .[id number] ONE Insulin Glargine 22 unit 01/04/25 21:00 01/06/25 20:56 Insulin Glargine (Lantus) 5 Unit/0.05 Ml (Per 5 Units) SC 02/03/25 20:59 22 unit HS KIP Administration Insulin Human Lispro 0 unit 01/07/25 08:00 Insulin Lispro (Admelog) 1 Unit/0.01 Ml Unit SC 02/06/25 07:59 Q6HR KIP Protocol Ipratropium [place] 0.5 mg 01/06/25 16:08 01/06/25 22:25 Ipratropium Rt 0.5 Mg/ 2.5 Ml Nebu INH 02/02/25 11:08 0.5 mg Q6HR PRN Administration SHORTNESS OF BREATH Protocol Levalbuterol HCl 0.31 mg 01/06/25 16:08 01/06/25 22:25 Levalbuterol Rt 0.31 Mg/3 Ml Nebu INH 02/03/25 08:02 0.31 mg Q6HR PRN Administration WHEEZING Protocol Losartan Potassium 100 mg 01/05/25 11:30 01/06/25 09:51 Losartan Potassium 25 Mg Tablet PO 02/04/25 11:29 100 mg QDAY KIP Administration Methadone HCl 100 mg 01/02/25 09:00 01/06/25 09:53 Methadone Hcl 10 Mg Tablet PO 01/07/25 08:59 100 mg QDAY KIP Administration Metoprolol Succinate 25 mg 01/04/25 09:00 01/06/25 09:52 Metoprolol Succinate Xl 25 Mg Tabcr PO 02/03/25 08:59 25 mg QDAY KIP Administration Ondansetron HCl 4 mg 01/05/25 16:06 01/06/25 09:57 Ondansetron Inj 2 Mg/Ml Inj 2 Ml IV 02/04/25 16:05 4 mg Q8HR PRN Administration NAUSEA OR VOMITING Protocol Pantoprazole Sodium 40 mg 01/06/25 21:00 01/06/25 20:55 Pantoprazole 40 Mg Tablet PO 02/05/25 20:59 40 mg BID KIP Administration Polyethylene Glycol 17 gm 01/05/25 11:30 01/06/25 09:52 Polyethylene Glycol 17 Gm Packet PO 02/04/25 11:29 17 gm QDAY KIP Administration Prednisone 40 mg 01/05/25 09:00 01/06/25 09:51 Prednisone 20 Mg Tablet PO 02/04/25 08:59 40 mg QDAY KIP Administration Sennosides 1 tab 01/06/25 09:00 01/06/25 09:52 Senna Tablet PO 02/05/25 08:59 1 tab QDAY KIP Administration Protocol Sodium Chloride 3 ml 01/02/25 13:06 Sodium Chloride Rt [place] 0.9% 3 Ml Nebu INH 02/01/25 13:05 PRN PRN SOLN Plan 64-year-old female with a history of COPD (on 2 L O2 at home), A-fib, hypertension, type 2 diabetes, Takotsubo cardiomyopathy, and substance abuse presented to the ED on 01/01/2025 with worsening weakness and shortness of breath for several days, notably worsening with exertion. Nephrology team consulted for management of THEO. THEO with ?CKD CR improving overall, slightly increased today 2/2 NPO. ? Agree with NS maint ? Renally dose meds, avoid overdiuresis and NEPHROTOXINS ? Daily CMP Hypertension Normotensive, BP 118/68, HR 58. AMLODIPINE 10 on hold On METOPROLOL 25 mg q. day, LOSARTAN 100 mg daily, and HYDRALAZINE PRN. Appears she is getting HYDRALAZINE infrequently. ? Daily vitals Dysphagia Dr. Ludwig was consulted EGD today COPD exacerbation Acute hypoxic respiratory failure History of Afib, stable Type 2 diabetes Metabolic Acidosis, non anio gap, Resolved Normocytic Anemia History of drug abuse Hyperkalemia, resolved Thank you for the opportunity to participate in the patient's care. Case was discussed with attending, Dr. Samayoa. Tyrone Martell, DO PGYI Attending Provider Attestation/Addendum Patient seen and examined with resident physician Dr. Hansen. Note reviewed, agree with findings and recommendations. Patient admitted with shortness of breath and noted to have THEO. Patient admitted with hypertensive urgency. Will do workup for secondary hypertension. Suspect underlying CKD from poorly controlled hypertension and diabetes for years. Renal ultrasound showed CKD changes. Blood pressure seems to be better. Creatinine improving. Complaining of dysphagia and nausea. Endoscopy showed Niharika esophagitis.
[2025-01-07] MEDS: BusPIRone HCL 5 MG TABLET 10 MG PO (08:47)
[2025-01-07] MEDS: LOSARTAN POTASSIUM 25 MG TABLET 100 MG PO (08:48)
[2025-01-07] MEDS: predniSONE 20 MG TABLET 40 MG PO (08:51)
[2025-01-07] MEDS: SENNA TABLET 1 TAB PO (08:52)
[2025-01-07] MEDS: DOXYCYCLINE INJ 100 MG in SODIUM CHLORIDE 0.9% (POP) 100 ML IV ×2 (08:52→21:35)
[2025-01-07] MEDS: PANTOPRAZOLE 40 MG TABLET PO ×2 (08:52→21:36)
[2025-01-07] MEDS: METOPROLOL SUCCINATE XL 25 MG TABCR PO (08:59)
[2025-01-07] MEDS: Magnesium Sulfate 2 GM Ivpb 2 GM/50 ML BAG IV (09:00)
[2025-01-07] MEDS: SODIUM CHLORIDE 0.9% 1000 ML 1,000 ML 80 ML IV (09:03)
[2025-01-07] MEDS: POLYETHYLENE GLYCOL 17 GM PACKET PO (09:16)
[2025-01-07] MEDS: LACTULOSE SYRUP 20 GM/30 ML UDC 10 GM PO (09:25)
[2025-01-07] MEDS: METHADONE HCL 10 MG TABLET 100 MG PO (09:33)
--- NOTE | 2025-01-07 10:26 | PC.NURSE ---
Report given to endoscopy nurse Tea at this time. Per Tea, she will follow up with since he wanted to do EGD at 1600.
[2025-01-07] MEDS: LEVALBUTEROL RT 0.31 MG/3 ML NEBU INH ×3 (11:47→19:29)
--- NOTE | 2025-01-07 14:52 | ESPR_ITS ---
<Statement entered by Ashok Butterfield MD - 01/11/25 12:59> I reviewed above note and agree with findings and plans. I have also personally examined the patient with medicine team and went over assessment and plan with medical team including industrial design intern and resident physician. Documentation for date of: 01/07/25 Patient was seen and examined at bedside, patient received exacerbation treatment with steroids. Patient is on azithromycin and ceftriaxone will consider to discontinue Rocephin may be tomorrow, continue DuoNebs treatment which appears to be helping with her symptoms. CMP revealed hyperkalemia of 6.2, patient home medication is spironolactone, was held patient was given hyperkalemia protocol, will follow-up with repeat potassium level. Labs revealed hyperglycemia, patient was given multiple sc insulin, patient glucose level is very labile, and tends to be dropping very quickly. We will start home insulin, continue close monitor. Cultures grew ESBL E. coli sensitive to tetracyclines, continued on doxycycline.. Patient has resistant hypertension, home medication hydralazine, clonidine, lisinopril, holding lisinopril in the setting of THEO. #Acute hypoxic respiratory failure, continue DuoNebs, steroids, prednisone p.o. , continue DuoNebs treatment, goal for O2 sats 88-92. #GNR Pneumonia - Cultures grew ESBL E. coli sensitive to tetracyclines, continued on doxycycline. #Hyperglycemia Home insulin, patient may need require more insulin as she is currently on steroids, will continue close monitor, adjust insulin regimen accordingly. #Hyperkalemia, could be secondary due to medication, holding spironolactone. #Hypertension, Resistant HTN, held spironolactone due to hyperK, now Blood pressure well-controlled, currently on losartan 100 mg daily, metoprolol succinate 25 mg daily, amlodipine 10 mg nightly, hydralazine 50 mg 3 times daily. #Afib RVR, had a rapid response for afib RVR, will resume home med metoprolol 25mg qday for rate control Afib, held eliquis 5mg bid, monitor for bleeding. #GI bleed r/o - Eliquis was held due to concern for GI bleed, decreasing hemoglobin levels, pending EGD by Dr. Ludwig. I personally saw and examined the patient and discussed the assessment and plan with the entire medicine team, including my attending Demetrio Conde PGY2 Subjective Subjective Interval history: No overnight events reported. Patient remains NPO for EGD with Dr. Ludwig for dysphagia and acute GI blood loss as occult stool positive. Deep suctioning x1 given upper airway mucus. NS maintence @ 70 cc given NPO status. Eliquis remains on hold. Exam Vital Signs Temp Pulse Resp BP Pulse Ox O2 Del Method O2 Flow Rate 97.4 F 54 L 20 137/84 H 95 Nasal Cannula 2 01/07/25 12:00 01/07/25 12:00 01/07/25 12:00 01/07/25 12:00 01/07/25 12:00 01/07/25 12:00 01/07/25 12:00 FiO2 23 01/04/25 20:10 Narrative Exam General Appearance: Alert & Oriented X3, well-nourished female who is lying in bed in no distress. HEENT: Skull symmetrical and atraumatic. Conjunctivae pin and moist. Pupils equal, round, reactive to light and accommodation (PERRL). External ear without lesion or discharge. Straight, nares patient, mucosa pink, no discharge. No thyroid nodule appreciated. No cervical lymphadenopathy. Cardio: Normal Rate and Rhythm with S1 and S2 heart sounds. No murmurs or extra heart sounds auscultated. No bruits on carotid auscultation. No peripheral edema or cyanosis. Lungs: Symmetric with good expansion. Chest and back non-tender. Breath sounds vesicular with improved wheezing Abdomen: Non-tender, Non-distended, Normal Reactive Bowel Sounds Neuro: Alert, cooperative, oriented to person, place, and time. Speech clear. CN grossly intact. Upper motor strength 5/5 and Lower motor strength 5/5. Sensation intact. Objective Labs 01/08/25 05:10 01/08/25 05:10 Labs: Laboratory Results - last 24 hr 01/07/25 04:52 WBC 13.9 H RBC 3.13 L Hgb 8.3 L Hct 27.0 L MCV 86 MCH 26.5 MCHC 30.7 L RDW Std Deviation 47.8 H Plt Count 220 D Neut % (Auto) 75 Lymph % (Auto) 15 [place] % (Auto) 6 Eos % (Auto) 0 Baso % (Auto) 0 Neut # (Auto) 10.4 H Lymph # (Auto) 2.1 [place] # (Auto) 0.9 H Eos # (Auto) 0.0 Baso # (Auto) 0.0 Immature Gran # (Auto) 0.42 H Absolute Nucleated RBC 0.00 Immature Gran % 3 H Nucleated RBC % 0 Sodium 138 Potassium 5.0 D Chloride 105 Carbon Dioxide 25.8 Anion Gap 7 BUN 48 H Creatinine 1.4 H Estim Creat Clear Calc 35.5 L eGFR 42 L BUN/Creatinine Ratio 34 H Glucose 149 H Calculated Osmolality 291 Calcium 8.7 Corrected Calcium 9.3 Phosphorus 2.7 Magnesium 1.9 Total Bilirubin 0.4 AST 31 ALT 41 Alkaline Phosphatase 43 L Total Protein 5.3 L Albumin 3.2 L Globulin 2.1 L Albumin/Globulin Ratio 1.5 ABG Interpretation ABG results: 01/01/25 20:19 ABG pH 7.29 L ABG pCO2 46 ABG pO2 240 H ABG HCO3 22 ABG O2 Saturation 100 H ABG Base Excess -5 L Quality Measures Quality Measures VTE prophylaxis Assessment & Plan Assessment Current Active Medications: Generic Name Dose Route Start Last Admin Trade Name Freq PRN Reason Stop Dose Admin Acetaminophen 650 mg 01/01/25 20:00 01/06/25 09:57 Acetaminophen 325 Mg Tablet PO 01/31/25 19:59 650 mg Q6H PRN Administration Fever >100.3 or pain 1-3 Amlodipine Besylate 10 mg 01/04/25 21:00 01/05/25 21:27 Amlodipine Besylate 5 Mg Tablet PO 02/03/25 20:59 10 mg HS KIP Administration Apixaban 5 mg 01/02/25 21:00 01/06/25 20:55 Apixaban 2.5 Mg Tablet PO 02/01/25 20:59 5 mg Q12H KIP Administration Buspirone HCl 10 mg 01/03/25 09:00 01/07/25 08:47 Buspirone Hcl 5 Mg Tablet PO 02/02/25 08:59 10 mg QDAY KIP Administration Dextrose 25 ml 01/02/25 12:37 Dextrose 50%-Water Inj 50 Ml Syringe IV 02/01/25 12:36 Q15MIN PRN BG 50-70 responsive npo pt Dextrose 50 ml 01/02/25 12:37 Dextrose 50%-Water Inj 50 Ml Syringe IV 02/01/25 12:36 Q15MIN PRN BG <50 OR BG <70 & pt unresponsive Glucagon 1 mg 01/02/25 12:37 Glucagon Inj 1 Mg Vial IM Q15MIN PRN BG <70, and no IV access Hydralazine HCl 50 mg 01/04/25 14:00 01/07/25 04:20 Hydralazine Hcl 25 Mg Tablet PO 02/03/25 13:59 Not Given TID KIP Doxycycline Hyclate 100 mg/ 100 mls @ 100 mls/hr 01/06/25 09:00 01/07/25 08:52 Sodium Chloride IV 01/15/25 07:57 100 mls/hr BID KIP Administration Sodium Chloride 1,000 mls @ 80 mls/hr 01/07/25 07:18 01/07/25 09:03 Ns IV 01/07/25 19:47 80 mls/hr .[id number] ONE Administration Insulin Glargine 22 unit 01/04/25 21:00 01/06/25 20:56 Insulin Glargine (Lantus) 5 Unit/0.05 Ml (Per 5 Units) SC 02/03/25 20:59 22 unit HS KIP Administration Insulin Human Lispro 0 unit 01/07/25 08:00 01/07/25 13:31 Insulin Lispro (Admelog) 1 Unit/0.01 Ml Unit SC 02/06/25 07:59 Not Given Q6HR KIP Protocol Ipratropium [place] 0.5 mg 01/06/25 16:08 01/06/25 22:25 Ipratropium Rt 0.5 Mg/ 2.5 Ml Nebu INH 02/02/25 11:08 0.5 mg Q6HR PRN Administration SHORTNESS OF BREATH Protocol Lactulose 10 gm 01/07/25 09:00 01/07/25 13:31 Lactulose Syrup 20 Gm/30 Ml Udc PO 02/06/25 08:59 Not Given QID KIP Protocol Levalbuterol HCl 0.31 mg 01/06/25 16:08 01/06/25 22:25 Levalbuterol Rt 0.31 Mg/3 Ml Nebu INH 02/03/25 08:02 0.31 mg Q6HR PRN Administration WHEEZING Protocol Losartan Potassium 100 mg 01/05/25 11:30 01/07/25 08:48 Losartan Potassium 25 Mg Tablet PO 02/04/25 11:29 100 mg QDAY KIP Administration Methadone HCl 100 mg 01/07/25 09:30 01/07/25 09:33 Methadone Hcl 10 Mg Tablet PO 01/12/25 09:29 100 mg QDAY KIP Administration Metoprolol Succinate 25 mg 01/04/25 09:00 01/07/25 08:59 Metoprolol Succinate Xl 25 Mg Tabcr PO 02/03/25 08:59 25 mg QDAY KIP Administration Ondansetron HCl 4 mg 01/05/25 16:06 01/06/25 09:57 Ondansetron Inj 2 Mg/Ml Inj 2 Ml IV 02/04/25 16:05 4 mg Q8HR PRN Administration NAUSEA OR VOMITING Protocol Pantoprazole Sodium 40 mg 01/06/25 21:00 01/07/25 08:52 Pantoprazole 40 Mg Tablet PO 02/05/25 20:59 40 mg BID KIP Administration Polyethylene Glycol 17 gm 01/05/25 11:30 01/07/25 09:16 Polyethylene Glycol 17 Gm Packet PO 02/04/25 11:29 17 gm QDAY KIP Administration Prednisone 40 mg 01/05/25 09:00 01/07/25 08:51 Prednisone 20 Mg Tablet PO 02/04/25 08:59 40 mg QDAY KIP Administration Sennosides 1 tab 01/06/25 09:00 01/07/25 08:52 Senna Tablet PO 02/05/25 08:59 1 tab QDAY KIP Administration Protocol Sodium Chloride 3 ml 01/02/25 13:06 Sodium Chloride Rt [place] 0.9% 3 Ml Nebu INH 02/01/25 13:05 PRN PRN SOLN Plan The patient is a 64-year-old female with a previous medical history of COPD on 2 L, hypertension, diabetes mellitus type 2, Atrial fibrillation on Eliquis at home (last dose 01/01/2025), history of PE, Takotsubo cardiomyopathy and history of substance use disorder who was admitted for acute hypoxic respiratory failure secondary to COPD Exacerbation. #GI bleed #Normocytic Anemia Patient has a past medical history of normocytic anemia which ranges from 10.2- 9.7 hgb. 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 Less likely secondary to acute bleed as patient denied any hemtemsis or hempotysis. Denied blood in stool. Plan -NPO after midnight -Occult Blood-Positive -Start Iron upon discharge -Gastroenterology Consulted, Dr. Ludwig, appreciate recommendations. #COPD exacerbation, improving #Acute hypoxic respiratory failure, resolved #PNA Patient has history of frequent COPD exacerbation and uses oxygen constantly. This exacerbation was provoked by physical exertion and from pulling out floor boards. Plan -Pending Blood Cultures Negative 48 hours -Sputum Culture GNR & epithelial cells-E. Coli ? Goal oxygen saturation level 88-92% ? Breathing treatment inhalations every 6 hours ? Prednisone 40 mg daily oral 01/04/2025-Day 3 -Doxycylcine 100 mg IVP BID 01/06/2025 ? Ceftriaxone 1 g daily (01/01/2025-01/05/2025) ? Azithromycin 500 mg daily (01/01/2025?) #THEO on CKD improving THEO likely secondary to pre-renal causes given BUN/Cr ratio greater than 20 from poor oral intake. BUN 35, Cr 1.7, GFR 33 BUN/Cr 21. CKD given decreased GFR for several months including in October. Diagnostics: On admission: 01/01/2025 creatinine 1.9, potassium 5.9, GFR 29-->01/06/2025 BUN 43 and Cr 1.2 GFR 51 US Renal: moderate bilateral renal parenchymal scar formation Plan: ? Monitor daily CMP ? Avoid nephrotoxic agents ? Renally dose medications #Resistant Hypertension, improved #Hypertensive urgency, resolved. #Hypertension Home blood pressure medications are lisinopril and metoprolol. Plan: -Losartan 100 daily -Amlodipine 10 mg HS -Hydralazine 50 mg TID -May given hydralazine 10 mg IVP if needed - Continue current management, #History of Afib, stable Patient reports taking Eliquis at home. On telemetry patient is tachycardic in the 100s. Previous EKGs showed sinus rhythm. Most likely paroxysmal. Plan: -Metroplolol succinate 25 mg Qday - Eliquis 5 mg BID, on HOLD #Type 2 diabetes Insulin Dependent On admission, patient presented with elevated blood glucose levels with anion gap of 13 and negative ketones in UA. Given underlying disease, concern for metabolic acidosis, moving towards anion gap. Patient given Regular Insulin and Glargine increased to home does. Monitor fasting blood glucose . A1c 7.5 Plan: ? Insulin sliding scale ? Insulin glargine 22 units SC - Hypoglycemic protocols in place, blood sugar goals 100 [id number] #History of drug abuse Plan: ? Resumed home methadone 100 mg po once a day, this has been patient's current dose for several years. #History of Esophageal Strictures Patient complaining of dysphagia, this is a chronic condition given recent dilation in 07/2024 showing esophagitis likely secondary to GERD vs Niharika vs less likely secondary to bisphophonates as there is no history of use Plan -Consider Nystatin swish and swallow #Hyperkalemia, resolved Health maintenance: FEN: NPO---please resume after EGD--cardiac and renal diet DVT prophylaxis: Eliquis 5 twice daily, HOLD; compression device GI prophylaxis: Protonix 40 mg BID Dispo: telemetry CODE STATUS: Full Code - The patient's plan was discussed with attending Dr. Butterfield and Demetrio Puga MD PGY1 Internal Medicine
--- NOTE | 2025-01-07 15:03 | PC.SS ---
Rounding: Pending EGD
[2025-01-07] MEDS: IPRATROPIUM RT 0.5 MG/ 2.5 ML NEBU INH ×2 (15:13→19:28)
[2025-01-07] MEDS: INSULIN LISPRO (AdmeLOG) 1 UNIT/0.01 ML UNIT SC (21:33)
[2025-01-07] MEDS: INSULIN GLARGINE (Lantus) 5 UNIT/0.05 ML (PER 5 UNITS) 22 UNIT SC (21:35)
[2025-01-07] MEDS: amLODIPine BESYLATE 5 MG TABLET 10 MG PO (21:35)
[2025-01-07] MEDS: NYSTATIN SUSP 5 ML UDC PO (21:36)
[2025-01-07] MEDS: hydrALAZINE HCL 25 MG TABLET 50 MG PO (21:36)
[2025-01-08] VITALS (11 sets, daily range): BP systolic 104–135; BP diastolic 52–96; PULSE 50–85; RESP 12–20; TEMP 36–36.3; O2SAT 96–100; BMI 22.3
[2025-01-08] MEDS: MELATONIN 3 MG TABLET 6 MG PO (04:46)
[2025-01-08] MEDS: NYSTATIN SUSP 5 ML UDC PO ×2 (05:46→13:59)
[2025-01-08] MEDS: hydrALAZINE HCL 25 MG TABLET 50 MG PO (05:46)
[2025-01-08 05:51] LABS: Basophils % (Auto) 0 % (0-2.5); Eosinophils % (Auto) 0 % (0-10); Hematocrit 30.1 % (36.0-46.0); Hemoglobin 9.5 g/dL (12.0-16.0); Immature Granulocytes % (Auto) 3 % (0-0); Immature Granulocytes Auto 0.41 Thou/mm3 (0.00-0.00); Lymphocytes # (Auto) 2.7 Thou/mm3 (1.0-4.8); Lymphocytes % (Auto) 17 % (10-50); Mean Corpuscular HGB Conc 31.6 g/dl (31.0-37.0); Mean Corpuscular Volume 86 fL (80-100); Monocytes # (Auto) 1.3 Thou/mm3 (0.0-0.8); Monocytes % (Auto) 9 % (0-12); Neutrophils % (Auto) 71 % (37-80); Nucleated Red Blood Cell % 0 /100 WBC (0); Platelet Count 169 Thou/mm3 (140-440); Red Blood Count 3.52 Miln/mm3 (4.00-5.20); White Blood Count 15.5 Thou/mm3 (3.6-11.0)
[2025-01-08 06:13] LABS: Alanine Aminotransferase 47 U/L (10-49); Albumin, Serum 3.3 gm/dL (3.4-4.8); Albumin/Globulin Ratio 1.5 (1.2-2.2); Alkaline Phosphatase 45 U/L (46-116); Anion Gap 7 (7-16); Aspartate Amino Transferase 37 U/L (0-34); BUN/Creatinine Ratio 32 Ratio (12-20); Bilirubin,Total 0.5 mg/dL (0.3-1.2); Blood Urea Nitrogen 38 mg/dL (9-23); Calcium 8.8 mg/dL (8.3-10.6); Calcium (Corrected) 9.4 mg/dL (8.5-10.1); Carbon Dioxide 25.3 mMol/L (20.0-31.0); Chloride 107 mMol/L (98-107); Creatinine (Component) 1.2 mg/dL (0.6-1.3); Estimated Creatinine Clearance 41.4 mL/min (>60); Globulin 2.2 gm/dL (2.3-3.5); Glucose 148 mg/dL (74-106); Magnesium 2.2 mg/dL (1.6-2.6); Osmolality,Calculated 289 (275-295); Phosphorous 2.8 mg/dL (2.4-5.1); Potassium 4.9 mMol/L (3.4-5.1); Sodium 139 mMol/L (136-145); Total Protein 5.5 gm/dL (5.7-8.2); eGFR 51 See Note
--- NOTE | 2025-01-08 07:39 | PD.RESPRO ---
Documentation for date of: 01/08/25 Subjective Subjective Interval history: Ms. Diaz is a 64-year-old female with a history of COPD (on 2 L O2 at home), A-fib, hypertension, type 2 diabetes, Takotsubo cardiomyopathy, and substance abuse presented to the ED on 01/01/2025 with worsening weakness and shortness of breath for several days, notably worsening with exertion. She denied fever or chills but had a dry cough with minimal phlegm. In the ED, she was afebrile (97.5?F), with hypertensive urgency (BP 223/139), heart rate (158), and low oxygen saturation (88% on 8 L O2). Labs revealed elevated WBC (25.4), potassium (5.9), BUN (34), creatinine (1.9), and glucose (460). Chest X-ray showed mild vascular congestion, and there was no evidence of pneumonia or pulmonary edema. She received methylprednisolone, albuterol/ipratropium inhalation, nitroglycerin paste, and insulin. BiPAP was initiated with settings IPAP 10, EPAP 5, and FiO2 80%. She was admitted for acute hypoxic respiratory failure secondary to COPD exacerbation. HD2 On day 2, she received continued treatment for her COPD exacerbation with steroids and antibiotics (azithromycin and ceftriaxone). Consideration was made to discontinue Rocephin (ceftriaxone) by the next day. She continues DuoNeb treatments, which are showing improvement in her symptoms. Labs revealed hyperkalemia (6.2), likely due to her home medication SPIRONOLACTONE, which was held. She was managed according to the hyperkalemia protocol, and potassium levels will be followed up. Additionally, hyperglycemia was noted with fluctuating glucose levels, so she received multiple subcutaneous insulin doses. Her glucose is labile and dropping quickly, so her home insulin regimen will be restarted, and close monitoring is needed, potentially adjusting the insulin doses due to the ongoing steroid use. She has hypertension on home METOPROLOL and LISINOPRIL. LISINOPRIL initially held due to acute kidney injury (THEO) which is resolving, now on AMLODIPINE 10 mg, METOPROLOL 25 mg daily, and LOSARTAN 50 mg daily. Today BP 162/88, HR 84. 01/05/2025 examined at bedside. SOB improving, currently on 2 L NC. Had several episodes of vomiting, feels constipated, added COLACE and stool softeners. Renal function proving, CR 1.3, BUN 39, EGFR 46. 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 Will add LOSARTAN 100 mg daily. 01/06/2025 patient currently seen in telemetry. Still having significant vomiting and nausea. Feels something stuck in the throat. Dr. Ludwig will be consulted. Had history of esophageal stricture and dilation 6 months ago. Probably she had the same episode now. Labs, medications reviewed. Creatinine slightly better. Spoke to Dr. Butterfield 01/07/2025 Examined at bedside. Doing well today. Denies fever, chills, headaches, chest pain, sob, cough, GI or urinary symptoms. CR 1.4 slightly up as she is NPO for EGD today. Will continur with IVF for now. 01/08/25 examined at bedside. Doing better today. Denies fever, chills, headaches, chest pain, sob, cough, GI or urinary symptoms. EGD showed esophagitis, possibly Niharika, and gastritis without ulcers, now on NYSTATIN. BP controlled. Renal function improved, CR 1.2, BUN 38, GFR 51. Nephrology will sign off. Reconsult as needed. Exam Vital Signs Temp Pulse Resp BP Pulse Ox O2 Del Method O2 Flow Rate 96.8 F 67 12 135/96 H 100 Nasal Cannula 3 01/08/25 04:00 01/08/25 05:46 01/08/25 04:00 01/08/25 05:46 01/08/25 04:00 01/08/25 04:00 01/08/25 04:00 FiO2 23 01/07/25 16:00 Narrative Exam GENERAL APPEARANCE: Patient currently seen in telemetry. Uncomfortable from dysphagia NECK: Neck supple, no JVD or bruit CARDIOVASCULAR: Heart regular, no murmurs LUNGS/CHEST: Few rhonchi and wheeze noted bilaterally ABDOMEN: Soft, nontender, nondistended. No masses. Normal bowel sounds. EXTREMITIES: No edema, clubbing or cyanosis. SKIN: Skin exam normal without any rashes MUSCULOSKELETAL: Able to move all her extremities NEUROLOGICAL : No neurological deficits Objective Labs 01/08/25 05:10 01/08/25 05:10 Labs: Laboratory Results - last 24 hr 01/08/25 05:10 WBC 15.5 H RBC 3.52 L Hgb 9.5 L Hct 30.1 L MCV 86 MCH 27.0 MCHC 31.6 RDW Std Deviation 48.0 H Plt Count 169 D Neut % (Auto) 71 Lymph % (Auto) 17 [place] % (Auto) 9 Eos % (Auto) 0 Baso % (Auto) 0 Neut # (Auto) 11.0 H Lymph # (Auto) 2.7 [place] # (Auto) 1.3 H Eos # (Auto) 0.0 Baso # (Auto) 0.0 Immature Gran # (Auto) 0.41 H Absolute Nucleated RBC 0.00 Immature Gran % 3 H Nucleated RBC % 0 Sodium 139 Potassium 4.9 Chloride 107 Carbon Dioxide 25.3 Anion Gap 7 BUN 38 H Creatinine 1.2 Estim Creat Clear Calc 41.4 L eGFR 51 L BUN/Creatinine Ratio 32 H Glucose 148 H Calculated Osmolality 289 Calcium 8.8 Corrected Calcium 9.4 Phosphorus 2.8 Magnesium 2.2 Total Bilirubin 0.5 AST 37 H ALT 47 Alkaline Phosphatase 45 L Total Protein 5.5 L Albumin 3.3 L Globulin 2.2 L Albumin/Globulin Ratio 1.5 ABG Interpretation ABG results: 01/01/25 20:19 ABG pH 7.29 L ABG pCO2 46 ABG pO2 240 H ABG HCO3 22 ABG O2 Saturation 100 H ABG Base Excess -5 L Quality Measures Quality Measures VTE prophylaxis Assessment & Plan Assessment Current Active Medications: Generic Name Dose Route Start Last Admin Trade Name Freq PRN Reason Stop Dose Admin Acetaminophen 650 mg 01/01/25 20:00 01/06/25 09:57 Acetaminophen 325 Mg Tablet PO 01/31/25 19:59 650 mg Q6H PRN Administration Fever >100.3 or pain 1-3 Amlodipine Besylate 10 mg 01/04/25 21:00 01/07/25 21:35 Amlodipine Besylate 5 Mg Tablet PO 02/03/25 20:59 10 mg HS KIP Administration Apixaban 5 mg 01/02/25 21:00 01/06/25 20:55 Apixaban 2.5 Mg Tablet PO 02/01/25 20:59 5 mg Q12H KIP Administration Buspirone HCl 10 mg 01/03/25 09:00 01/07/25 08:47 Buspirone Hcl 5 Mg Tablet PO 02/02/25 08:59 10 mg QDAY KIP Administration Dextrose 25 ml 01/02/25 12:37 Dextrose 50%-Water Inj 50 Ml Syringe IV 02/01/25 12:36 Q15MIN PRN BG 50-70 responsive npo pt Dextrose 50 ml 01/02/25 12:37 Dextrose 50%-Water Inj 50 Ml Syringe IV 02/01/25 12:36 Q15MIN PRN BG <50 OR BG <70 & pt unresponsive Glucagon 1 mg 01/02/25 12:37 Glucagon Inj 1 Mg Vial IM Q15MIN PRN BG <70, and no IV access Hydralazine HCl 50 mg 01/04/25 14:00 01/08/25 05:46 Hydralazine Hcl 25 Mg Tablet PO 02/03/25 13:59 50 mg TID KIP Administration Doxycycline Hyclate 100 mg/ 100 mls @ 100 mls/hr 01/06/25 09:00 01/07/25 21:35 Sodium Chloride IV 01/15/25 07:57 100 mls/hr BID KIP Administration Insulin Glargine 22 unit 01/04/25 21:00 01/07/25 21:35 Insulin Glargine (Lantus) 5 Unit/0.05 Ml (Per 5 Units) SC 02/03/25 20:59 22 unit HS KIP Administration Insulin Human Lispro 0 unit 01/08/25 07:30 01/08/25 07:17 Insulin Lispro (Admelog) 1 Unit/0.01 Ml Unit SC 02/07/25 07:29 Not Given ACHS KIP Protocol Ipratropium [place] 0.5 mg 01/06/25 16:08 01/07/25 19:28 Ipratropium Rt 0.5 Mg/ 2.5 Ml Nebu INH 02/02/25 11:08 0.5 mg Q6HR PRN Administration SHORTNESS OF BREATH Protocol Lactulose 10 gm 01/07/25 09:00 01/08/25 05:46 Lactulose Syrup 20 Gm/30 Ml Udc PO 02/06/25 08:59 Not Given QID KIP Protocol Levalbuterol HCl 0.31 mg 01/06/25 16:08 01/07/25 19:29 Levalbuterol Rt 0.31 Mg/3 Ml Nebu INH 02/03/25 08:02 0.31 mg Q6HR PRN Administration WHEEZING Protocol Losartan Potassium 100 mg 01/05/25 11:30 01/07/25 08:48 Losartan Potassium 25 Mg Tablet PO 02/04/25 11:29 100 mg QDAY KIP Administration Methadone HCl 100 mg 01/07/25 09:30 01/07/25 09:33 Methadone Hcl 10 Mg Tablet PO 01/12/25 09:29 100 mg QDAY KIP Administration Metoprolol Succinate 25 mg 01/04/25 09:00 01/07/25 08:59 Metoprolol Succinate Xl 25 Mg Tabcr PO 02/03/25 08:59 25 mg QDAY KIP Administration Nystatin 5 ml 01/07/25 22:00 01/08/25 05:46 Nystatin Susp 5 Ml Udc PO 01/14/25 21:59 5 ml TID KIP Administration Ondansetron HCl 4 mg 01/05/25 16:06 01/06/25 09:57 Ondansetron Inj 2 Mg/Ml Inj 2 Ml IV 02/04/25 16:05 4 mg Q8HR PRN Administration NAUSEA OR VOMITING Protocol Pantoprazole Sodium 40 mg 01/06/25 21:00 01/07/25 21:36 Pantoprazole 40 Mg Tablet PO 02/05/25 20:59 40 mg BID KIP Administration Polyethylene Glycol 17 gm 01/05/25 11:30 01/07/25 09:16 Polyethylene Glycol 17 Gm Packet PO 02/04/25 11:29 17 gm QDAY KIP Administration Prednisone 40 mg 01/05/25 09:00 01/07/25 08:51 Prednisone 20 Mg Tablet PO 02/04/25 08:59 40 mg QDAY KIP Administration Sennosides 1 tab 01/06/25 09:00 01/07/25 08:52 Senna Tablet PO 02/05/25 08:59 1 tab QDAY KIP Administration Protocol Sodium Chloride 3 ml 01/02/25 13:06 Sodium Chloride Rt [place] 0.9% 3 Ml Nebu INH 02/01/25 13:05 PRN PRN SOLN Plan 64-year-old female with a history of COPD (on 2 L O2 at home), A-fib, hypertension, type 2 diabetes, Takotsubo cardiomyopathy, and substance abuse presented to the ED on 01/01/2025 with worsening weakness and shortness of breath for several days, notably worsening with exertion. Nephrology team consulted for management of THEO. THEO (resolved) with ?CKD CR improving overall, CR 1.2 today ? Renally dose meds, avoid overdiuresis and NEPHROTOXINS ? Daily CMP Hypertension Normotensive, BP 118/68, HR 58. On METOPROLOL 25 mg q. day, LOSARTAN 100 mg daily, AMLODIPINE 10 mg, and HYDRALAZINE PRN. Sustained HTN with max sBP 186 and dBP 99, getting HYDRALAZINE once daily on average. ? Daily vitals Dysphagia Dr. Ludwig was consulted EGD today COPD exacerbation Acute hypoxic respiratory failure History of Afib, stable Type 2 diabetes Metabolic Acidosis, non anio gap, Resolved Normocytic Anemia History of drug abuse Hyperkalemia, resolved Thank you for the opportunity to participate in the patient's care. Case was discussed with attending, Dr. [place]. Tyrone Martell, PGYI Attending Provider Attestation/Addendum Patient seen and examined with resident physician Dr. Hansen. Note reviewed, agree with findings and recommendations. Patient admitted with shortness of breath and noted to have THEO. Patient admitted with hypertensive urgency. Will do workup for secondary hypertension. Suspect underlying CKD from poorly controlled hypertension and diabetes for years. Renal ultrasound showed CKD changes. Blood pressure seems to be better. Creatinine improving. Complaining of dysphagia and nausea. Endoscopy showed Niharika esophagitis. Patient currently on nystatin swish and swallow.
[2025-01-08] MEDS: DOXYCYCLINE INJ 100 MG in SODIUM CHLORIDE 0.9% (POP) 100 ML IV (08:23)
[2025-01-08] MEDS: POLYETHYLENE GLYCOL 17 GM PACKET PO (08:26)
[2025-01-08] MEDS: METHADONE HCL 10 MG TABLET 100 MG PO (08:27)
[2025-01-08] MEDS: predniSONE 20 MG TABLET 40 MG PO (08:28)
[2025-01-08] MEDS: LOSARTAN POTASSIUM 25 MG TABLET 100 MG PO (08:28)
[2025-01-08] MEDS: PANTOPRAZOLE 40 MG TABLET PO (08:30)
[2025-01-08] MEDS: SENNA TABLET 1 TAB PO (08:30)
[2025-01-08] MEDS: METOPROLOL SUCCINATE XL 25 MG TABCR PO (08:30)
[2025-01-08] MEDS: BusPIRone HCL 5 MG TABLET 10 MG PO (08:31)
[2025-01-08] MEDS: APIXABAN 2.5 MG TABLET 5 MG PO (08:37)
[2025-01-08] MEDS: ACETAMINOPHEN 325 MG TABLET 650 MG PO (08:39)
[2025-01-08] MEDS: ONDANSETRON INJ 2 MG/ML INJ 2 ML 4 MG IV (08:39)
[2025-01-08] MEDS: IPRATROPIUM RT 0.5 MG/ 2.5 ML NEBU INH (09:49)
[2025-01-08] MEDS: LEVALBUTEROL RT 0.31 MG/3 ML NEBU INH (09:49)
[2025-01-08] MEDS: INSULIN LISPRO (AdmeLOG) 1 UNIT/0.01 ML UNIT SC (11:22)
[2025-01-08] MEDS: LACTULOSE SYRUP 20 GM/30 ML UDC 10 GM PO (11:23)
--- NOTE | 2025-01-08 13:09 | ESDS_ITS ---
<Statement entered by Ashok Butterfield MD - 01/11/25 13:01> I reviewed above note and agree with findings and plans. I have also personally examined the patient with medicine team and went over assessment and plan with medical team including planning intern and resident physician. Planned Discharge Date 01/08/25 DS: Providers Provider Date of admission: 01/01/25 19:59 Primary care physician: Physician No Primary/Family Admitting Provider: Kaleb Zuleta MD Attending Provider on Admission: Ashok Butterfield MD Consults: 01/04/25 09:46 Referral Physical Therapy Urgent Comment: Physician Instructions: Instructions: -patient uses a cane to ambulate, if you could given her a walker or cane during this hospitalization 01/04/25 12:21 Consult to Nephrology Urgent Comment: Consulting Provider: Rylee Samayoa 01/06/25 12:56 Consult to Gastroenterology Routine Comment: Dysphagia & Positive Occult Blood Consulting Provider: Uche Ludwig Attending Provider on DC: Angelika Puga MD Discharging Provider: Angelika Puga MD DS: Diagnosis Problem List Completed Was Problem List Reviewed/Reconciled?: Yes Hospital Course Hospital Course Hospital course: Ms. Diaz is a 64-year-old female with a history of COPD (on 2 L O2 at home), A-fib, hypertension, type 2 diabetes, Takotsubo cardiomyopathy, and substance abuse presented to the ED on 01/01/2025 with worsening weakness and shortness of breath for several days, notably worsening with exertion. She denied fever or chills but had a dry cough with minimal phlegm. In the ED, she was afebrile (97.5?F), with hypertensive urgency (BP 223/139), heart rate (158), and low oxygen saturation (88% on 8 L O2). Labs revealed elevated WBC (25.4), potassium (5.9), BUN (34), creatinine (1.9), and glucose (460). Chest X-ray showed mild vascular congestion, and there was no evidence of pneumonia or pulmonary edema. She received methylprednisolone, albuterol/ipratropium inhalation, nitroglycerin paste, and insulin. BiPAP was initiated with settings IPAP 10, EPAP 5, and FiO2 80%. She was admitted for acute hypoxic respiratory failure secondary to COPD exacerbation. HD2 On day 2, she received continued treatment for her COPD exacerbation with steroids and antibiotics (azithromycin and ceftriaxone). Consideration was made to discontinue Rocephin (ceftriaxone) by the next day. She continues DuoNeb treatments, which are showing improvement in her symptoms. Labs revealed hyperkalemia (6.2), likely due to her home medication SPIRONOLACTONE, which was held. She was managed according to the hyperkalemia protocol, and potassium levels will be followed up. Additionally, hyperglycemia was noted with fluctuating glucose levels, so she received multiple subcutaneous insulin doses. Her glucose is labile and dropping quickly, so her home insulin regimen will be restarted, and close monitoring is needed, potentially adjusting the insulin doses due to the ongoing steroid use. She has hypertension on home METOPROLOL and LISINOPRIL. LISINOPRIL initially held due to acute kidney injury (THEO) which is resolving, now on AMLODIPINE 10 mg, METOPROLOL 25 mg daily, and LOSARTAN 50 mg daily. Today BP 162/88, HR 84. 01/05/2025 examined at bedside. SOB improving, currently on 2 L NC. Had several episodes of vomiting, feels constipated, added COLACE and stool softeners. Renal function proving, CR 1.3, BUN 39, EGFR 46. 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 Will add LOSARTAN 100 mg daily. 01/06/2025 patient currently seen in telemetry. Still having significant vomiting and nausea. Feels something stuck in the throat. Dr. Ludwig will be consulted. Had history of esophageal stricture and dilation 6 months ago. Probably she had the same episode now. Labs, medications reviewed. Creatinine slightly better. Spoke to Dr. Butterfield 01/07/2025 Examined at bedside. Doing well today. Denies fever, chills, headaches, chest pain, sob, cough, GI or urinary symptoms. CR 1.4 slightly up as she is NPO for EGD today. Will continur with IVF for now. 01/08/25 examined at bedside. Doing better today. Denies fever, chills, headaches, chest pain, sob, cough, GI or urinary symptoms. EGD showed esophagitis, possibly Niharika, and gastritis without ulcers, now on NYSTATIN. BP controlled. Renal function improved, CR 1.2, BUN 38, GFR 51. Nephrology will sign off. Reconsult as needed. Senior resident attestation: Patient evaluated and examined at the bedside, plan of care discussed with rest of the team including my attending physician, except as noted. Demetrio PGY2 Summary: The patient is a 64-year-old female with a previous medical history of COPD on 2 L, hypertension, diabetes mellitus type 2, Atrial fibrillation on Eliquis at home, history of PE, Takotsubo cardiomyopathy and history of substance use disorder who was admitted on 01/01/2025 for acute hypoxic respiratory failure secondary to COPD Exacerbation and found to have pneumonia GNR +. Patient was additionally treated for esophagitits as gastroenterology was consulted. ED course: She was afebrile 97.5, blood pressure 223/139, heart rate 158, saturation was 88% on 8 L oxy mask. Labs reviewed WBC 25.4, hemoglobin 10.4, hematocrit 32.1, potassium 5.9, BUN 34, creatinine 1.9, EGFR 29, glucose 460, hemoglobin A1c 7.5, calculated osmolality 299. Chest x-ray showed mild vascular congestion, negative for lobar pneumonia or pulmonary edema. In the ED she received methylprednisolone 125 mg, albuterol and ipratropium inhalation, nitroglycerin paste and 10 units of insulin. She was started on BiPAP with settings IPAP 10, EPAP of 5, FiO2 80%. Social history: Patient is a former smoker, denies alcohol or drug use recently Hospital Course: Patient was treated for COPD exacerbation and was started on DuoNebs--> eventually transition to levalbuterol given patient's tachycardia and steroids IV. Patient initially required BiPAP on admission and eventually transition to nasal cannula. On admissions patient's WBC count was elevated at 25.4 on 01/01/2025) likely combination of steroids given and subsequently later found to have pneumonia on repeat chest x-ray. Patient was started on broad-spectrum antibiotics which included ceftriaxone and azithromycin, which were subsequently DC'd after sputum culture grew E. coli/ESBL and doxycycline 100 mg IV push twice daily started. Acapella added for patient. During hospital course patient had resistant hypertension and nephrology was consulted. Patient was started on new regimen of antihypertensive including losartan 100 mg, hydralazine 50 mg 3 times daily, and amlodipine 10 mg at bedtime. Patient was started on metoprolol tartrate 25 mg daily for rate control of atrial fibrillation. Patient Eliquis held given normocytic anemia that fluctuated and increased as low as 7.7 hemoglobin. Gastroenterology consulted given patient's acute worsening anemia v ersus GI loss. Patient was made n.p.o. followed by EGD. On EGD 2 biopsies were taken and was noted to have esophagitis, likely secondary to chronic steroid use including inhaled steroids at home. Recommended patient use a spacer at home. Fluconazole added upon discharge to treat esophagitis. Patient's THEO on CKD improved and upon discharge BUN 38, Cr 1.2, and GFR of 51. Instructions: -Please complete course of antibiotic with Doxycylcine -Please continue Losartan once a day,Hydralazine three times a day, and Amlodipine 10 mg at night for your resistant hypertension. -Please hold a Hydralazine dose if your blood pressure is less than 120/90 -STOP Clonidine -Please complete a short course of Pantoprazole and have your primary care provider taper off as needed. -Please complete steroid adryan for COPD -Please continue home medication as prescribed -Please follow up with your primary care provider within one week of discharge -If your symptoms worsen,please seek immediate medical attention and return to your nearest emergency room -If you do not have a primary care provider, you may follow up at the [facility] at [address], [place] [address], Stable-->home #Esophagititis #GI bleed, ruled out #Normocytic Anemia likely anemia of chronic disease #COPD exacerbation, improved #Acute hypoxic respiratory failure, resolved #PNA, GNR, E.coli #THEO on CKD improved #Resistant Hypertension, improved #Hypertensive urgency, resolved. #Hypertension #History of Afib, stable #Type 2 diabetes Insulin Dependent #History of substance use disorder #History of Esophageal Strictures #Hyperkalemia, resolved - The patient's plan was discussed with attending Dr. Butterfield and senior residents Dr. Demetrio Puga MD PGY1 Internal Medicine Time Spent with Patient Time attestation: Total time spent providing and/or coordinating discharge services: at least 30 minutes of care and coordination Time spent: Greater than 30 minutes Quality: Stroke Pt Provided Written Stroke Discharge Instructions: No Exam Vital Signs Temp Pulse Resp BP Pulse Ox O2 Del Method O2 Flow Rate 97.4 F 52 L 18 104/52 L 99 Nasal Cannula 2 01/08/25 12:00 01/08/25 12:00 01/08/25 12:00 01/08/25 12:00 01/08/25 12:00 01/08/25 12:00 01/08/25 12:00 FiO2 23 01/07/25 16:00 Narrative Exam General Appearance: Alert & Oriented X3, well-nourished female who is lying in bed in no distress. HEENT: Skull symmetrical and atraumatic. Conjunctivae pin and moist. Pupils equal, round, reactive to light and accommodation (PERRL). External ear without lesion or discharge. Straight, nares patient, mucosa pink, no discharge. No thyroid nodule appreciated. No cervical lymphadenopathy. Cardio: Normal Rate and Rhythm with S1 and S2 heart sounds. No murmurs or extra heart sounds auscultated. No bruits on carotid auscultation. No peripheral edema or cyanosis. Lungs: Symmetric with good expansion. Chest and back non-tender. Breath sounds vesicular with improved wheezing w/ mild rhonchi Abdomen: Non-tender, Non-distended, Normal Reactive Bowel Sounds Neuro: Alert, cooperative, oriented to person, place, and time. Speech clear. CN grossly intact. Upper motor strength 5/5 and Lower motor strength 5/5. Sensation intact. Discharge Plan Plan Patient Disposition: HOME (Self Care) Patient condition on transfer: Stable Care Plan Goals: Instructions: -Please complete course of antibiotic with Doxycylcine -Please continue Losartan once a day,Hydralazine three times a day, and Amlodipine 10 mg at night for your resistant hypertension. -Please hold a Hydralazine dose if your blood pressure is less than 120/90 -STOP Clonidine -Please complete a short course of Pantoprazole and have your primary care provider taper off as needed. -Please complete steroid adryan for COPD -Please continue home medication as prescribed -Please follow up with your primary care provider within one week of discharge -If your symptoms worsen,please seek immediate medical attention and return to your nearest emergency room -If you do not have a primary care provider, you may follow up at the [facility] at [address], [place] [address], Prescriptions/Referrals Prescriptions/Med Rec: New buspirone 5 mg Tablet 10 mg PO QDAY 14 Days Qty: 28 0RF amlodipine 5 mg Tablet 10 mg PO HS 14 Days Qty: 28 0RF metoprolol succinate 25 mg Tablet Extended Release 24 Hr 25 mg PO QDAY 14 Days Qty: 14 0RF methylprednisolone 4 mg tablets,dose pack 4 mg PO QAM Qty: 21 0RF doxycycline hyclate 100 mg capsule 100 mg PO BID 11 Days Qty: 22 0RF hydralazine 25 mg Tablet 50 mg PO TID 30 Days Qty: 180 0RF losartan 25 mg Tablet 100 mg PO QDAY 30 Days Qty: 120 0RF pantoprazole 40 mg tablet,delayed release (DR/EC) 40 mg PO QDAY 30 Days Qty: 30 0RF fluconazole 200 mg tablet 200 mg PO QDAY 14 Days Qty: 14 0RF Continued albuterol sulfate 90 mcg/actuation HFA aerosol inhaler 1 puff inhalation QID PRN (Reason: shortness of breath or wheezing) Qty: 8.5 0RF aspirin 81 mg tablet,delayed release (DR/EC) 81 mg PO QDAY Qty: 30 0RF lactulose 10 gram/15 mL solution 10 g PO QDAY PRN (Reason: constipation) Qty: 3785 0RF lidocaine 5 % adhesive patch,medicated 1 patch topical QDAY Qty: 30 0RF Rx Instructions: leave on most painful area for up to 12 hrs Trelegy Ellipta 200-62.5-25 mcg blister with device 1 inh inhalation QDAY Qty: 60 0RF methadone 10 mg/5 mL Solution 100 mg PO QDAY nitroglycerin 0.4 mg Tablet, Sublingual 0.4 mg BUCCAL Q5MIN PRN (Reason: Chest Pain) ondansetron 4 mg tablet,disintegrating 4 mg PO Q8H PRN (Reason: nausea and vomiting) Qty: 10 0RF meclizine 50 mg tablet 50 mg PO BID PRN (Reason: dizziness or vertigo) Qty: 10 0RF Proair Digihaler 90 mcg/actuation aero powdr breath act w/sensor 2 inh inhalation Q6H PRN (Reason: shortness of breath or wheezing) Qty: 1 0RF Eliquis 5 mg tablet 5 mg PO Q12H Patient Comments: TAKE ONE TABLET BY MOUTH TWICE DAILY FOR THE HEART insulin glargine [Basaglar KwikPen U-100 Insulin] 100 unit/mL (3 mL) insulin pen 26 unit subcut QAM furosemide [Lasix] 20 mg tablet 20 mg PO QAM 30 Days Qty: 30 0RF Discontinued tramadol 50 mg tablet 50 mg PO Q8H PRN (Reason: pain) Qty: 20 0RF hydralazine 100 mg tablet 100 mg PO TID Qty: 90 0RF buspirone 5 mg tablet 5 mg PO QDAY Qty: 30 0RF spironolactone 50 mg tablet 50 mg PO QDAY Qty: 30 0RF prednisone 50 mg tablet 50 mg PO QDAY Qty: 7 0RF Referrals: No Primary/Family,Physician [Primary Care Provider] - Rylee Samayoa MD [Physician] - Patient/Caregiver Discharge Instructions Discharge Activity: activity as tolerated Education Materials: Chronic Lung Disease Avoiding ..., ED Esophagitis, Niharika, ED Pneumonia (Adult) Print Language: Korean Stand Alone Forms: Kaylynn Award Info., Patient Portal Info Letter Discharge Order Discharge Orders: Discharge (Routine); Ordered 01/08/25 Ordered By: Angelika Puga Quality Discharge Quality Measures VTE prophylaxis
== END 2025-01-08 15:59 | disposition home or self-care (01) | DRG 140 ==
LOC: SERX 19:51 → SERHOLD 20:14 → S2NX 01-02 01:44
PROVIDERS: Emergency Medicine; Internal Medicine; Specialist; Student in an Organized Health Care Education/Training Program; Admitting Provider Internal Medicine; Emergency Provider Emergency Medicine; Visit Provider Internal Medicine
PROC: 0DB38ZX Excision of Lower Esophagus, Via Natural or Artificial Opening Endoscopic, Diagnostic (ICD-10-PCS; CPT 43239; principal; 2025-01-07 16:00)
DX: J44.1 Chronic obstructive pulmonary disease with (acute) exacerbation (principal); J15.69 Pneumonia due to other Gram-negative bacteria; F17.200 Nicotine dependence, unspecified, uncomplicated; E11.9 Type 2 diabetes mellitus without complications; I48.91 Unspecified atrial fibrillation; Z99.81 Dependence on supplemental oxygen; I16.0 Hypertensive urgency; N17.9 Acute kidney failure, unspecified; E87.5 Hyperkalemia; J96.21 Acute and chronic respiratory failure with hypoxia; D72.829 Elevated white blood cell count, unspecified; I51.81 Takotsubo syndrome; F19.10 Other psychoactive substance abuse, uncomplicated; E11.22 Type 2 diabetes mellitus with diabetic chronic kidney disease; Z79.4 Long term (current) use of insulin; N18.9 Chronic kidney disease, unspecified; D63.1 Anemia in chronic kidney disease; E87.20 Acidosis, unspecified; E11.65 Type 2 diabetes mellitus with hyperglycemia; E78.5 Hyperlipidemia, unspecified; E86.0 Dehydration; I12.9 Hypertensive chronic kidney disease with stage 1 through stage 4 chronic kidney disease, or unspecified chronic kidney disease; Z79.899 Other long term (current) drug therapy; Z86.711 Personal history of pulmonary embolism; Z16.12 Extended spectrum beta lactamase (ESBL) resistance; Z79.01 Long term (current) use of anticoagulants; Z79.52 Long term (current) use of systemic steroids; J44.0 Chronic obstructive pulmonary disease with (acute) lower respiratory infection; K59.00 Constipation, unspecified; I1A.0 Resistant hypertension; B37.81 Candidal esophagitis; K22.2 Esophageal obstruction; T38.0X5A Adverse effect of glucocorticoids and synthetic analogues, initial encounter; B96.20 Unspecified Escherichia coli [E. coli] as the cause of diseases classified elsewhere
CPT/HCPCS: 36415; 36600; 71045; 76770; 80053; 80061; 80069; 80307; 81001; 82270; 82570; 82728; 82803; 83036; 83540; 83550; 83605; 83690; 83735; 83880; 84100; 84132; 84145; 84156; 84484; 85014; 85018; 85025; 85610; 85730; 87040; 87077; 87086; 87186; 87205; 87400; 87811; 89220; 93005; 93975; 94640; 94644; 94660; 94664; 94667; 96365; 96367; 96372; 96374; 97162; 99285; A9270; C1769; J0360; J0456; J0696; J1643; J1815; J2060; J2175; J2250; J2405; J2919; J3010; J3475; J3490; J7030; J7050; J7512

== ENCOUNTER 2025-03-03 07:31 | Emergency (ER) | payer MEDICAID, SELFPAY ==
[2025-03-03] VITALS (7 sets, daily range): BP systolic 123–152; BP diastolic 59–88; PULSE 94–107; RESP 17–19; TEMP 36.5–36.6; O2SAT 93–100; BMI 23.6
--- NOTE | 2025-03-03 08:18 | XR_ITS ---
Examination: AP chest single view Technique: Sitting portable AP chest single view Date and time: March 03, 2025, 0836 hrs. Comparison January 02, 2025 Indications: Coughing shortness of breath today. Findings: Normal heart size. No pneumonia or pulmonary edema. Prominent osteopenia. Impression: No pneumonia or pulmonary edema.
--- NOTE | 2025-03-03 08:18 | EKG_ITS ---
[facility] Test Date: 2025-03-03 Pat Name: DISHA ABRAHAM Department: Room: - Gender: Female Network Intelligence Analyst: : 1960 Requested By: Renan Aguilar Order Number: [id number] Reading MD: Renan Aguilar Measurements Intervals [place] Rate: 102 P: 76 FL: 166 QRS: -22 QRSD: 101 T: 80 QT: 361 QTc: 471 Interpretive Statements SINUS TACHYCARDIA POSSIBLE INFERIOR MYOCARDIAL INFARCTION , PROBABLY OLD [30 ms Q WAVE IN II/aVF] ABNORMAL RHYTHM ECG Compared to ECG 01/02/2025 21:58:06 Myocardial infarct finding now present Indeterminate axis no longer present T-wave abnormality no longer present Possible ischemia no longer present /store/s0/[id number].pdf
[2025-03-03] MEDS: ALBUTEROL RT 2.5 MG/3 ML NEBU INH (08:35)
[2025-03-03] MEDS: FUROSEMIDE INJ 10 MG/ML 4ML VIAL 40 MG IVP (08:44)
[2025-03-03] MEDS: MethylPREDNISolone SOD SUCC 62.5 MG/ML 2ML VIAL 125 MG IVP (08:44)
--- NOTE | 2025-03-03 08:53 | XR_ITS ---
Examination: CT cervical spine without contrast 2-D sagittal reconstructions 2-D coronal reconstructions 3-D reconstructions. Exam date and time:March 03, 2025, 0954 hrs. Indications: Patient fell this morning with injury to the neck, neck pain CTDI:vol (mGy) 8.5 DLP: (mGycm) 176 Technique: Multiple 2 mm axial sections of the cervical spine have been obtained. The coronal and sagittal reconstructions have been obtained. 3-D reconstructions have been obtained. Low dose protocols were performed. One or more of the following dose reduction techniques were used; automated exposure control, adjustment of the mA and/or KV according to patient size, use of iterative reconstruction technique. Findings: Axial sections demonstrate intact base of the skull. C1 exhibit satisfactory relationship to the odontoid. No acute cervical vertebral body fracture seen. Alignment posterior spinous processes satisfactory. Impression: No acute cervical fracture.
--- NOTE | 2025-03-03 08:53 | XR_ITS ---
Examination: CT brain head without contrast. 2-D sagittal coronal reconstructions Date and time of exam:March 03, 2025, 0954 hrs. Indications: Patient fell today with injury to the head, head pain CTDI: vol (mGy):50.1 DLP: (mGycm):1044 Technique: Multiple CT axial sections of the brain have been obtained, 5 mm slice thickness. Contrast has not been administered. 2-D sagittal, coronal reconstructions have been obtained Low dose protocols were performed. One or more of the following dose reduction techniques were used; automated exposure control, adjustment of the mA and/or KV according to patient size, use of iterative reconstruction technique. Findings: No significant ventricular enlargement. Intra-axial or extra-axial hemorrhage density is not seen. No mass effect or midline shift Basal cisterns are not remarkable. Fourth ventricle is midline. Cranial vault intact. Impression: Negative for acute hemorrhage, mass effect or midline shift
[2025-03-03 08:59] LABS: Lactate (Lactic Acid) 1.2 mMol/L (0.4-2.0)
[2025-03-03 09:03] LABS: Basophils % (Auto) 0 % (0-2.5); Eosinophils # (Auto) 0.3 Thou/mm3 (0.0-0.5); Eosinophils % (Auto) 3 % (0-10); Hematocrit 27.2 % (36.0-46.0); Hemoglobin 9.1 g/dL (12.0-16.0); Immature Granulocytes % (Auto) 0 % (0-0); Immature Granulocytes Auto 0.03 Thou/mm3 (0.00-0.00); Lymphocytes # (Auto) 2.2 Thou/mm3 (1.0-4.8); Lymphocytes % (Auto) 24 % (10-50); Mean Corpuscular HGB Conc 33.5 g/dl (31.0-37.0); Mean Corpuscular Volume 78 fL (80-100); Monocytes # (Auto) 0.9 Thou/mm3 (0.0-0.8); Monocytes % (Auto) 10 % (0-12); Neutrophils # (Auto) 5.7 Thou/mm3 (1.8-7.7); Neutrophils % (Auto) 63 % (37-80); Nucleated Red Blood Cell % 0 /100 WBC (0); Platelet Count 223 Thou/mm3 (140-440); RDW Standard Deviation 38.6 fL (36.4-46.3); White Blood Count 9.1 Thou/mm3 (3.6-11.0)
[2025-03-03] MEDS: ACETAMINOPHEN IVPB 1,000 MG/100 ML VIAL 250 MG IV (09:12)
[2025-03-03 09:24] LABS: Alanine Aminotransferase 16 U/L (10-49); Albumin, Serum 3.8 gm/dL (3.4-4.8); Albumin/Globulin Ratio 1.7 (1.2-2.2); Alkaline Phosphatase 64 U/L (46-116); Anion Gap 11 (7-16); BUN/Creatinine Ratio 23 Ratio (12-20); Bilirubin,Total 0.4 mg/dL (0.3-1.2); Blood Urea Nitrogen 36 mg/dL (9-23); Calcium 9.4 mg/dL (8.3-10.6); Calcium (Corrected) 9.6 mg/dL (8.5-10.1); Carbon Dioxide 25.3 mMol/L (20.0-31.0); Chloride 105 mMol/L (98-107); Creatinine (Component) 1.6 mg/dL (0.6-1.3); Estimated Creatinine Clearance 32.4 mL/min (>60); Globulin 2.2 gm/dL (2.3-3.5); Glucose 179 mg/dL (74-106); Osmolality,Calculated 293 (275-295); Potassium 3.7 mMol/L (3.4-5.1); Sodium 141 mMol/L (136-145); Troponin I < 0.020 ng/mL (0.0-0.045); eGFR 36 See Note
[2025-03-03 09:49] LABS: B-Type Natriuretic Peptide < 20 pg/mL (0-100)
[2025-03-03 10:12] LABS: Partial Thromboplastin Time 23.4 Seconds (22.0-36.0)
--- NOTE | 2025-03-03 10:12 | EDNOTE_ITS ---
ED SOB =RME/HPI General Chief Complaint: Shortness of Breath/Dyspnea Stated Complaint: SOB Time Seen by Provider: 03/03/25 07:38 Arrival date/time: 03/03/25 07:31 Limitations: no limitations RME / HPI RME / HPI Narrative: 64 year old female with history of COPD on 2L at home, multiple admissions for COPD exacerbations, A-fib on Eliquis, hypertension, diabetes, and current tobacco smoker presents to the ED BIBA from home for evaluation of shortness of breath beginning early this morning. Reportedly gave herself a breathing treatment without improvement, prompting calling 911. Per medics, on their arrival, patient was saturating 98% on 2L, blood pressure 168/84, HR 100, and RR 18. Was given two breathing treatments en route with some improvement. While in the ED, patient also complains of body aches and increased swelling to hands and legs. States she is compliant with her medications and denies missing a dose. Patient additionally reported smoking one cigarette this morning to help me relax . 0850: I was notified by the nurse that the patient reported falling at 05:00 AM today while trying to use the restroom and complains of pain to the back of her head and neck. Patient denied losing consciousness. Related Data Home Medications ?Medication ?Instructions ?Recorded ?Confirmed methadone 10 mg/5 mL oral solution 100 mg PO QDAY 01/2401/03/25 nitroglycerin 0.4 mg sublingual 0.4 mg buccal Q5MIN NM N Chest Pain 02/07/24 01/03/25 tablet apixaban 5 mg tablet (Eliquis) 5 mg PO Q12H 01/02/25 0 01/02/25 insulin glargine 100 unit/mL (3 26 unit subcut QAM 07/2001/03/25 mL) subcutaneous pen (Basaglar KwikPen U-100 Insulin) Previous Rx's ?Medication ?Instructions ?Recorded albuterol sulfate 90 mcg/actuation 1 puff inhalation Q ID PRN 08/06/24 aerosol inhaler shortness of breath or wheez ing #8.5 grams aspirin 81 mg tablet,delayed 81 mg PO QDAY #30 tabs release fluticasone fur. 200 mcg-umeclid 1 inh inhalation QDAY #60 ea 08/06/24 62.5 mcg-vilant 25 mcg inhalat.powder (Trelegy Ellipta) lactulose 10 gram/15 mL oral 10 g (15 mL) PO QDAY PRN 08/06/24 solution constipation #3,785 mL lidocaine 5 % topical patch 1 patch topical QDAY #30 e a 08/06/24 meclizine 50 mg tablet 50 mg PO BID PRN dizziness o r 10/27/24 vertigo #10 tabs ondansetron 4 mg disintegrating 4 mg PO Q8H PRN nausea and 10/27/24 tablet vomiting #10 tabs albuterol sulfate 90 mcg/actuation 2 inh inhalation Q6 H PRN shortness 11/01/24 breath activated powder of breath or wheezing #1 ea inhaler,sensor (Proair Digihaler) methylprednisolone 4 mg tablets in 4 mg PO QAM COPD #2 1 tabs 01/04/25 a dose pack furosemide 20 mg tablet (Lasix) 20 mg PO QAM 30 days # 30 tabs 01/08/25 Allergies Allergy/AdvReac Type Severity Reaction Status Date / Time codeine Allergy Severe RASH Verified 12/25/24 05:46 diphenhydramine HCl Allergy Severe Hives Verified 12/25/24 05:46 egg Allergy Severe Rash Verified 12/25/24 05:46 Penicillins Allergy Severe SWELLING, Verified 12/25/24 05:46 RESP DISTRESS pentazocine (From Talwin) Allergy Severe Hives Verified 12/25/24 05:46 Review of Systems Review of Systems Systems Reviewed: All systems reviewed, normal except as documented Past Medical History Past Medical History NEUROLOGIC: Positive Neurological Disorders, Cerebrovascular Accident and Meningitis CARDIAC: Positive Cardiac Disorders, Myocardial Infarction, Cardiac Arrhythmia, Atrial Fibrillation, Angina, Hypercholesterolemia, Congestive Heart Failure, Edema and Hypertension RESPIRATORY: Positive Chronic Obstructive Pulmonary Disease (COPD), Asthma, Bronchitis, Emphysema and Pneumonia MUSCULOSKELETAL: Positive Musculoskeletal Disorders, Arthritis and Osteoporosis ENT: Positive Cataracts and Blind ENDOCRINE: Positive Endocrine Disorders and Diabetes Mellitus Type 2 HEMATOLOGIC: Positive Anemia PSYCHO/SOCIAL: Positive Recreational Drug Use, Depression and Anxiety OTHER HISTORY: Positive Hospitalization, Shingles and Falls Family History FAMILY HISTORY: Positive Family Cardiac Disorders; Negative Family Psychiatric Problems, Family Respiratory Disorders, Family Gastrointestinal Problems, Family Cancer, Family Surgery or Family Anesthesia Reaction Surgical History SURGICAL: Positive Eye Surgery, Tonsillectomy and Abdominal Surgery Social History SMOKING STATUS: Current some day smoker SECOND HAND EXPOSURE: No SUBSTANCE USE: former substance user, heroin and methamphetamine (Former drug use, states she quit 20 years ago; tested positive for methamphetamine 03/31/2023.) ED Exam General Limitations: Present no limitations General appearance: Present alert and anxious Head Head exam: Present atraumatic, normocephalic and normal inspection Eye Eye exam: Present normal appearance, PERRL and EOMI ENT ENT exam: Present normal exam, normal oropharynx and mucous membranes moist Neck Neck exam: Present other (Musculoskeletal pain, spinal myospasms ) Chest Chest inspection: Present normal inspection and symmetric chest wall rise Respiratory Respiratory exam: Present normal lung sounds bilaterally Cardiovascular Cardiovascular exam: Present tachycardia and normal heart sounds Abdominal Exam Abdominal exam: Present soft and normal bowel sounds Extremities Exam Extremities exam: Present full ROM and other (1+ pitting edema, pritibial bilaterally ) Back Exam Back exam: Present normal inspection and full ROM Neurological Exam Neurological exam: Present alert, oriented X3 and CN II-XII intact Psychiatric Psychiatric exam: Present anxious Skin Skin exam: Present warm, dry, intact and normal color Course Quality Measures none Orders Category Date Time Status [employer] Rep NOW Care 03/03/25 08:18 Active Continuous Pulse Oximetry NOW Care 03/03/25 08:18 Completed EKG (ED ONLY) *Do not use* NOW Care 03/03/25 08:18 Completed Insert IV NOW Care 03/03/25 08:[address] cervical spine wo con Stat Exams 03/03/25 08:[address] head/brain wo con Stat Exams 03/03/25 08:53 Completed EKG (ED Only) Stat Exams 03/03/25 08:18 Draft XR chest 1V portable Stat Exams 03/03/25 08:18 Completed BNP [B-Type Natriuretic Peptide] Stat Lab 03/03/25 08:35 Completed CBC Stat Lab 03/03/25 08:35 Completed Comprehensive Metabolic Panel Stat Lab 03/03/25 08:35 Completed Lactic Acid [Lactate (Lactic Acid)] Stat Lab 03/03/25 08:35 Completed Partial Thromboplastin Time Stat Lab 03/03/25 08:35 Completed Prothrombin Time with INR Stat Lab 03/03/25 08:35 Completed Troponin I Stat Lab 03/03/25 08:35 Completed Urinalysis Stat Lab 03/03/25 10:27 Completed ALBUTEROL RT 3ml [Proventil Rt 3ml] Med 03/03/25 08:18 Discontinued 2.5 mg INH X1 ONE Acetaminophen Ivpb [Ofirmev Inj] Med 03/03/25 08:54 Active 1,000 mg in 100 ml IV Q6HR Furosemide Inj [Lasix Inj] Med 03/03/25 08:20 Discontinued 40 mg IVP X1 ONE MethylPREDNISolone.* [SoluMEDROL Inj] Med 03/03/25 08:18 Discontinued 125 mg IVP X1 ONE Oxygen Delivery NOW RT 03/03/25 08:18 Active Vital Signs Vital signs: Vital Signs Pulse Rate 106 H 03/03/25 07:40 Shortness of Breath / Dyspnea MDM Narrative MDM Narrative:: Anju Fuller am scribing for and in the presence of Dr. Che. Patient remains clinically stable throughout the emergency department visit. We reviewed all the results, analysis, and treatment plans. Patient is amenable to discharge. Strict return precautions were outlined. Patient was discharged in stable condition. Patient data External records reviewed:: [facility] previous records (I reviewed ED visit from 01/01/2025 through 01/08/2025) and EMS form Clinical information provided by:: patient and EMS Social determinants that could affect healthcare access:: other (specify) (current tobacco smoker) Patient has the following chronic illnesses:: COPD on 2L at home, multiple admissions for COPD exacerbations, A-fib on Eliquis, hypertension, diabetes, and current tobacco smoker How is presenting disease/condition affected by chronic disease/condition?: exacerbated by Evaluation data The following diagnostics were reviewed and interpreted by me:: lab results, radiology exam(s) and EKG tracing(s) (EKG 03/03/2025 @ 07:36 AM. Sinus tachycardia, rate 102, NM 166ms, QRS 101ms, QT/QTc 361/420ms, P-R-T 76-22-80. ) Lab and/or radiology exams considered but not ordered:: None Interpretation Summary: Ordering Physician: Renan Che MD Date of Service: 03/03/25 Procedure(s): XR chest 1V portable Accession Number(s): [id number] cc: Renan Che MD; Acosta Kumari MD~ Examination: AP chest single view Technique: Sitting portable AP chest single view Date and time: March 03, 2025, 0836 hrs. Comparison January 02, 2025 Indications: Coughing shortness of breath today. Findings: Normal heart size. No pneumonia or pulmonary edema. Prominent osteopenia. Impression: No pneumonia or pulmonary edema. Dictated By:Acosta Kumari MD Signed By:<Electronically signed by Acosta Kumari MD in [place]>03/03/25 0924 Ordering Physician: Renan Che MD Date of Service: 03/03/25 Procedure(s): CT cervical spine con Accession Number(s): [id number] cc: Renan Che MD; Apolinar Tai MD; Acosta Kumari MD~ Examination: CT cervical spine without contrast 2-D sagittal reconstructions 2-D coronal reconstructions 3-D reconstructions. Exam date and time:March 03, 2025, 0954 hrs. Indications: Patient fell this morning with injury to the neck, neck pain CTDI:vol (mGy) 8.5 DLP: (mGycm) 176 Technique: Multiple 2 mm axial sections of the cervical spine have been obtained. The coronal and sagittal reconstructions have been obtained. 3-D reconstructions have been obtained. Low dose protocols were performed. One or more of the following dose reduction techniques were used; automated exposure control, adjustment of the mA and/or KV according to patient size, use of iterative reconstruction technique. Findings: Axial sections demonstrate intact base of the skull. C1 exhibit satisfactory relationship to the odontoid. No acute cervical vertebral body fracture seen. Alignment posterior spinous processes satisfactory. Impression: No acute cervical fracture. Dictated By: Acosta Kumari MD Signed By: <Electronically signed by Acosta Kumari MD in [place]>03/03/25 1109 Ordering Physician: Renan Che MD Date of Service: 03/03/25 Procedure(s): CT head/brain wo [facility] Accession Number(s): [id number] cc: Renan Che MD; Apolinar Tai MD; Acosta Kumari MD~ Examination: CT brain head without contrast. 2-D sagittal coronal reconstructions Date and time of exam:March 03, 2025, 0954 hrs. Indications: Patient fell today with injury to the head, head pain CTDI: vol (mGy):50.1 DLP: (mGycm):1044 Technique: Multiple CT axial sections of the brain have been obtained, 5 mm slice thickness. Contrast has not been administered. 2-D sagittal, coronal reconstructions have been obtained Low dose protocols were performed. One or more of the following dose reduction techniques were used; automated exposure control, adjustment of the mA and/or KV according to patient size, use of iterative reconstruction technique. Findings: No significant ventricular enlargement. Intra-axial or extra-axial hemorrhage density is not seen. No mass effect or midline shift Basal cisterns are not remarkable. Fourth ventricle is midline. Cranial vault intact. Impression: Negative for acute hemorrhage, mass effect or midline shift Dictated By: Acosta Kumari MD Signed By: <Electronically signed by Acosta Kumari MD in [place]>03/03/25 1110 Medications / Prescriptions Medications or Prescriptions considered but not ordered:: None Medication administrations:: Medication Administration History Acetaminophen (Ofirmev Inj) 1,000 mg in 100 mls @ 250 mls/hr IV Q6HR KIP Stop: 03/04/25 06:23 Last Infusion: 03/03/25 09:50 Dose: Infused Documented By: Admin: 03/03/25 09:12 Dose: 250 mls/hr Documented By: VG Discontinued Medications Albuterol (Albuterol Rt 2.5 Mg/3 Ml Nebu) 2.5 mg INH X1 ONE Stop: 03/03/25 08:19 Last Admin: 03/03/25 08:35 Dose: 2.5 mg Documented By: TJ Furosemide (Furosemide Inj 10 Mg/Ml 4ml Vial) 40 mg IVP X1 ONE Stop: 03/03/25 08:21 Last Admin: 03/03/25 08:44 Dose: 40 mg Documented By: BARBRA Methylprednisolone Sodium Succinate (Methylprednisolone Sod Succ 62.5 Mg/Ml 2ml Vial) 125 mg IVP X1 ONE Stop: 03/03/25 08:19 Last Admin: 03/03/25 08:44 Dose: 125 mg Documented By: BARBRA See above Consultations Consultation(s) initiated? (list below): No Diagnosis Shortness of Breath Differential Diagnosis: acute exacerbation of chronic obstructive airways disease, congestive heart failure, community acquired pneumonia and asthma with exacerbation Most likely diagnosis given after review of the tests above:: COPD exacerbation Renal insufficiency Head injury, no evidence on exam Musculoskeletal pain in neck Admission Indicated Admission indicated?: not indicated Admission Request Was there a request for admission?: No Disposition Plan Disposition Plan: Discharge Discharge Attestation Discharge Attestation: The patient and all family members were given an opportunity to ask questions and understood the discharge instructions. Discharge instructions specifically effects, indications for sooner follow up or return to the emergency department, and the expected course of current diagnosis. Patient condition: Stable Discharge Plan Plan Patient Disposition: HOME (Self Care) Prescriptions/Referrals Prescriptions/Med Rec: No Action albuterol sulfate 90 mcg/actuation HFA aerosol inhaler 1 puff inhalation QID PRN (Reason: shortness of breath or wheezing) Qty: 8.5 0RF aspirin 81 mg tablet,delayed release (DR/EC) 81 mg PO QDAY Qty: 30 0RF lactulose 10 gram/15 mL solution 10 g PO QDAY PRN (Reason: constipation) Qty: 3785 0RF lidocaine 5 % adhesive patch,medicated 1 patch topical QDAY Qty: 30 0RF Rx Instructions: leave on most painful area for up to 12 hrs Trelegy Ellipta 200-62.5-25 mcg blister with device 1 inh inhalation QDAY Qty: 60 0RF methadone 10 mg/5 mL Solution 100 mg PO QDAY nitroglycerin 0.4 mg Tablet, Sublingual 0.4 mg BUCCAL Q5MIN PRN (Reason: Chest Pain) ondansetron 4 mg tablet,disintegrating 4 mg PO Q8H PRN (Reason: nausea and vomiting) Qty: 10 0RF meclizine 50 mg tablet 50 mg PO BID PRN (Reason: dizziness or vertigo) Qty: 10 0RF Proair Digihaler 90 mcg/actuation aero powdr breath act w/sensor 2 inh inhalation Q6H PRN (Reason: shortness of breath or wheezing) Qty: 1 0RF Eliquis 5 mg tablet 5 mg PO Q12H Patient Comments: TAKE ONE TABLET BY MOUTH TWICE DAILY FOR THE HEART insulin glargine [Basaglar KwikPen U-100 Insulin] 100 unit/mL (3 mL) insulin pen 26 unit subcut QAM methylprednisolone 4 mg tablets,dose pack 4 mg PO QAM Qty: 21 0RF furosemide [Lasix] 20 mg tablet 20 mg PO QAM 30 Days Qty: 30 0RF Referrals: Apolinar Tai MD [Primary Care Provider] - In 1 week Problem List Clinical Impression: COPD exacerbation, Renal insufficiency, Head injury, Musculoskeletal neck pain Patient/Caregiver Discharge Instructions Education Materials: ED COPD Flare, ED Head Injury (Adult), ED Renal Insufficiency Additional Instructions: Follow-up with your primary care doctor in 3 to 5 days for recheck. You can return to the emergency department sooner if symptoms worsen or if you notice any new, concerning issues. For pain, take 1-2 Tylenol 500mg tablets every 6 hours. Print Language: Kazakh Stand Alone Forms: Kaylynn Award Info., Patient Portal Info Letter
[2025-03-03 10:45] LABS: Collection Type, Urine Clean Catch
[2025-03-03 11:05] LABS: Bacteria,Urine Rare; Bilirubin,Urine Negative (Negative); Blood,Urine Negative (Negative); Clarity,Urine Clear (Clear/Hazy); Color,Urine Lt-Yellow (Lt Yel-Yel); Glucose, Urine Negative (Negative); Hyaline Casts,Urine < 1 /hpf (0-1); Ketones,Urine Negative (Negative); Leukocyte Esterase,Urine Positive (Negative); Nitrite,Urine Negative (Negative); PH,Urine 5.5 (5.0-7.0); Protein,Urine Negative (Neg - Trace); RBC,Urine 29 /hpf (0-3); Specific Gravity,Urine 1.009 (1.001-1.035); Squamous Epithelial Cell,Urine 4 /hpf (0-5); Urobilinogen,Urine Negative mg/dL (0.0-1.0); WBC,Urine 25 /hpf (0-5)
== END 2025-03-03 12:15 | disposition home or self-care (01) ==
PROVIDERS: Emergency Provider Family Medicine; PCP Family Medicine
DX: J44.1 Chronic obstructive pulmonary disease with (acute) exacerbation (principal); S09.90XA Unspecified injury of head, initial encounter; N28.89 Other specified disorders of kidney and ureter; S19.9XXA Unspecified injury of neck, initial encounter; W19.XXXA Unspecified fall, initial encounter; R00.0 Tachycardia, unspecified; I48.91 Unspecified atrial fibrillation; F17.210 Nicotine dependence, cigarettes, uncomplicated; I25.2 Old myocardial infarction; E78.00 Pure hypercholesterolemia, unspecified; I11.0 Hypertensive heart disease with heart failure; I50.9 Heart failure, unspecified; Z79.01 Long term (current) use of anticoagulants; Z99.81 Dependence on supplemental oxygen
CPT/HCPCS: 36415; 70450; 71045; 72125; 80053; 81001; 83605; 83880; 84484; 85025; 85610; 85730; 93005; 94640; 96365; 96375; 99284; J0131; J1938; J2919

== ENCOUNTER 2025-03-21 22:15 | Emergency (ER) | payer MEDICAID, SELFPAY ==
--- NOTE | 2025-03-21 22:16 | PD.EDSOB ---
ED SOB =RME/HPI General Chief Complaint: Shortness of Breath/Dyspnea Stated Complaint: sob Time Seen by Provider: 03/21/25 22:20 Arrival date/time: 03/21/25 22:15 RME / HPI RME / HPI Narrative: Dr. Pond?s Main ED Evaluation: 64yo female with a history of COPD (on 2 L O2 at home), aFib, HTN, DM, Takotsubo cardiomyopathy BIBA presents to the ED as a STAT medical for a chief complaint of shortness of breath. Patient was seen by me immediately upon ED arrival. Per EMS, patient was found to be saturating at 80% on 2L. EMS administered an albuterol treatment en route without improvement, so they placed her on CPAP. Patient denies any chest pain, fever, chills or any other associated symptoms. Related Data Home Medications ?Medication ?Instructions ?Recorded ?Confirmed methadone 10 mg/5 mL oral solution 100 mg PO QDAY 02/07/24 01/03/25 nitroglycerin 0.4 mg sublingual 0.4 mg buccal Q5MIN PRN Chest Pain 02/07/24 01/03/25 tablet apixaban 5 mg tablet (Eliquis) 5 mg PO Q12H 01/02/25 01/02/25 insulin glargine 100 unit/mL (3 26 unit subcut QAM 01/03/25 01/03/25 mL) subcutaneous pen (Basaglar KwikPen U-100 Insulin) Previous Rx's ?Medication ?Instructions ?Recorded albuterol sulfate 90 mcg/actuation 1 puff inhalation QID PRN 08/06/24 aerosol inhaler shortness of breath or wheezing #8.5 grams aspirin 81 mg tablet,delayed 81 mg PO QDAY #30 tabs 08/06/24 release fluticasone fur. 200 mcg-umeclid 1 inh inhalation QDAY #60 ea 08/06/24 62.5 mcg-vilant 25 mcg inhalat.powder (Trelegy Ellipta) lactulose 10 gram/15 mL oral 10 g (15 mL) PO QDAY PRN 08/06/24 solution constipation #3,785 mL lidocaine 5 % topical patch 1 patch topical QDAY #30 ea 08/06/24 meclizine 50 mg tablet 50 mg PO BID PRN dizziness or 10/27/24 vertigo #10 tabs ondansetron 4 mg disintegrating 4 mg PO Q8H PRN nausea and 10/27/24 tablet vomiting #10 tabs albuterol sulfate 90 mcg/actuation 2 inh inhalation Q6H PRN shortness 11/01/24 breath activated powder of breath or wheezing #1 ea inhaler,sensor (Proair Digihaler) methylprednisolone 4 mg tablets in 4 mg PO QAM COPD #21 tabs 01/04/25 a dose pack furosemide 20 mg tablet (Lasix) 20 mg PO QAM 30 days #30 tabs 01/08/25 Allergies Allergy/AdvReac Type Severity Reaction Status Date / Time codeine Allergy Severe RASH Verified 03/21/25 22:27 diphenhydramine HCl Allergy Severe Hives Verified 03/21/25 22:27 egg Allergy Severe Rash Verified 03/21/25 22:27 Penicillins Allergy Severe SWELLING, Verified 03/21/25 22:27 RESP DISTRESS pentazocine (From [place]) Allergy Severe Hives Verified 03/21/25 22:27 Review of Systems Review of Systems Systems Reviewed: All systems reviewed, normal except as documented Past Medical History Past Medical History NEUROLOGIC: Positive Neurological Disorders, Cerebrovascular Accident and Meningitis; Negative Transient Ischemic Attacks (TIA), Alzheimer's Disease, Parkinson's Disease, Brain Tumor, Seizures, Multiple Sclerosis, Cerebral Palsy, Amyotrophic Lateral Sclerosis (ALS/Regina Gehrig's), Spina Bifida, Paralysis, Peripheral Neuropathy, Farrar's Palsy, Subdural Hematoma, Migraine, Head Trauma, Spinal Cord Injury or Traumatic Brain Injury CARDIAC: Positive Cardiac Disorders, Myocardial Infarction, Cardiac Arrhythmia, Atrial Fibrillation, Angina, Hypercholesterolemia, Congestive Heart Failure, Edema and Hypertension; Negative Varicose Veins RESPIRATORY: Positive Chronic Obstructive Pulmonary Disease (COPD), Asthma, Bronchitis, Emphysema and Pneumonia; Negative Pulmonary Fibrosis, Tuberculosis, Pulmonary Embolism, Pulmonary Edema or Sleep Apnea GASTROINTESTINAL: Negative Gastrointestinal Disorders, Hepatitis, Cirrhosis, Pancreatitis, Celiac Disease, Gall Bladder Disease, Gastrointestinal Bleed, Esophageal Varices, Denise's Esophagus, Colitis, Ulcerative Colitis, Diverticulitis, Diverticulosis, Ulcer, Irritable Bowel, Crohn's Disease, Obstructive Bowel, Hiatal Hernia, Hemorrhoids, Gastroesophageal Reflux Disease or Obesity GENITOURINARY: Negative Genitourinary Disorders, Renal Disease, Kidney Stones, Polycystic Kidney Disease, Neurogenic Bladder, Inguinal Hernia, Dialysis or Benign Prostatic Hyperplasia REPRODUCTIVE: Negative Pelvic Inflammatory Disease MUSCULOSKELETAL: Positive Musculoskeletal Disorders, Arthritis and Osteoporosis; Negative Muscular Dystrophy, Myasthenia Gravis, Marfan's Syndrome, Rheumatoid Arthritis, Degenerative Disk Disease, Gout, Scoliosis, Carpal Tunnel Syndrome, Fibromyalgia, Fractures, Degenerative Joint Disease, Osteomyelitis or Poliovirus ENT: Positive Cataracts and Blind; Negative Glaucoma, Retinal Detachment, Macular Degeneration, Ear Infection, Deafness, Head Trauma or Eye Prosthesis ENDOCRINE: Positive Endocrine Disorders and Diabetes Mellitus Type 2; Negative Diabetes Mellitus Type 1, Hypoglycemia, Aurora's Syndrome, Arpit's Disease, Hyperthyroidism, Hypothyroidism, Parathyroid Disease, Pituitary Disease, Systemic Lupus Erythematosus, Syndrome of Inappropriate Antidiuretic Hormone (SIADH), Adrenal Disease or Graves' Disease HEMATOLOGIC: Positive Anemia; Negative Blood Disorders, Leukemia, Hemophilia, Thalassemia, Sickle Cell Disease or Clotting Problems PSYCHO/SOCIAL: Positive Recreational Drug Use, Depression and Anxiety; Negative Psychiatric Problems, Schizophrenia, Behavior Problems, Self-Mutilation, Attention Deficit Disorder, Attention Deficit Hyperactivity Disorder, Depression, Post Traumatic Stress Disorder or Eating Disorder OTHER HISTORY: Positive Hospitalization, Shingles and Falls; Negative Autoimmune Disease, Down Syndrome, Autism, Developmental Delay, Blood Transfusions, Anesthesia Reactions, Organ Transplant, Chemotherapy, Radiation Therapy, MRSA, Human Immunodeficiency Virus (HIV), Chicken Pox, Measles, Mumps, Rubella ([place]ish Measles), Pertussis, Clostridium Difficile or Cancer Family History FAMILY HISTORY: Positive Family Cardiac Disorders; Negative Family Psychiatric Problems, Family Respiratory Disorders, Family Gastrointestinal Problems, Family Cancer, Family Surgery or Family Anesthesia Reaction Surgical History SURGICAL: Positive Eye Surgery, Tonsillectomy and Abdominal Surgery; Negative Cardiac Surgery, Open Heart Surgery, Coronary Artery Bypass Graft, Valve Replacement, Vascular Surgery, Coronary Stent, Cardiac Catheterization, Pacemaker, Angiogram, Auto Implanted Cardiovert Defib, Carotid Endarterectomy, Endocrine Surgery, Thyroidectomy, Ear Surgery, Tympanostomy Tube, Nose Surgery, Oral Surgery, Adenoidectomy, Cochlear Implant, Corneal Transplant, Throat Surgery, Tracheostomy, Gastric Bypass Surgery, Gastrostomy, Bowel Surgery, Nephrectomy, Joint Replacement, Amputation, Open Reduction Internal Fixation, Arthroscopy, Neurologic Surgery, Brain Shunt, Mastectomy, Lumpectomy, Hysterectomy, Tubal Ligation, Section or Organ Transplant Social History SMOKING STATUS: Current some day smoker SECOND HAND EXPOSURE: No SUBSTANCE USE: former substance user, heroin and methamphetamine (Former drug use, states she quit 20 years ago; tested positive for methamphetamine 03/31/2023.) ED Exam Narrative Physical exam: GENERAL APPEARANCE: alert and oriented x 4, well-developed, well-nourished, no acute distress VITALS: All vitals were reviewed and the pulse ox is 100% on BiPAP, which is adequate according to my interpretation. HEENT: Normocephalic, atraumatic; pupils equal, round, reactive to light; EOMI; mucous membranes pink, moist; oropharynx clear NECK: Supple LUNGS: Decreased air movement bilaterally; no wheezes, no rales, no rhonchi HEART: Regular rate, regular rhythm; normal S1, S2; no murmurs ABDOMEN: non distended; normal BS; soft, no tenderness, no guarding, no rebound; no masses, no organomegaly, no hernia BACK: no CVA tenderness EXTREMITIES: atraumatic; no edema NEUROLOGIC: awake; alert and oriented x4; cranial nerves II-XII grossly intact; no focal sensory or motor deficits PSYCHIATRIC: appropriate mood and affect SKIN: warm, dry, normal color; no rashes Course Course Course Narrative: CXR is ordered for determining the etiology of shortness of breath. Quality Measures none Orders Category Date Time Status Teaching Manager NOW Care 03/21/25 22:49 Active EKG (ED ONLY) *Do not use* NOW Care 03/21/25 22:49 Completed EKG (ED Only) Stat Exams 03/21/25 22:49 Ordered XR chest 1V portable Stat Exams 03/21/25 22:49 Completed B-Type Natriuretic Peptide Stat Lab 03/21/25 22:20 Completed CBC Stat Lab 03/21/25 22:20 Completed Comprehensive Metabolic Panel Stat Lab 03/21/25 22:20 Completed Lipase Stat Lab 03/21/25 22:20 Completed Magnesium Stat Lab 03/21/25 22:20 Completed Partial Thromboplastin Time Stat Lab 03/21/25 22:20 Completed Prothrombin Time with INR Stat Lab 03/21/25 22:20 Completed Troponin I Stat Lab 03/21/25 22:20 Completed ALBUTEROL RT 0.5ml [Proventil Rt 0.5ml] Med 03/21/25 22:16 Discontinued 10 mg .ROUTE .STK-MED ONE ALBUTEROL RT 0.5ml [Proventil Rt 0.5ml] Med 03/21/25 22:19 Discontinued 10 mg INH X1 ONE Diazepam Inj [Valium Inj] Med 03/22/25 00:45 Discontinued 5 mg IVP X1 ONE Ipratropium Mallie Rt Blanca [Atrovent Rt Blanca] Med 03/21/25 22:17 Discontinued 1 mg .ROUTE .STK-MED ONE Ipratropium Mallie Rt Blanca [Atrovent Rt Blanca] Med 03/21/25 22:19 Discontinued DOSE mg INH X1 ONE Morphine Inj Med 03/21/25 23:40 Discontinued 10 mg .ROUTE .STK-MED ONE Morphine Inj Med 03/21/25 23:50 Active 4 mg IVP Q1H PRN Morphine Inj Med 03/21/25 23:30 Discontinued 4 mg IVP X1 ONE Sodium Chloride 0.9% 1000 ml [Ns] 1,000 ml Med 03/22/25 02:56 Discontinued IV 999 mls/hr Sodium Chloride Rt Blanca 0.9% [NS Rt Blanca 0.9%] Med 03/21/25 22:17 Discontinued 3 ml INH .STK-MED ONE Sodium Chloride Rt Blanca 0.9% [NS Rt Blanca 0.9%] Med 03/21/25 22:18 Active 3 ml INH PRN PRN BiPAP / CPAP NEEDED RT 03/21/25 22:36 Active Reevaluation(s) Reevaluation #1: Patient complains of having right leg muscle spasms. Morphine and Valium ordered. Time: 23:30 Reevaluation #2: Patient is resting comfortably at this time. When woken up, patient complains of having leg spasms. IVF ordered. Time: 02:54 Vital Signs Vital signs: Vital Signs Pulse Rate 98 03/21/25 22:24 Shortness of Breath / Dyspnea [facility] Narrative MDM Narrative:: Scribe Attestation: 03/21/25 - Modesta Fuller am scribing for and in the presence of Dr. Pond. Patient data External records reviewed:: [facility] previous records (Per chart review, patient was seen here on 03/03/25 for COPD exacerbation.) Clinical information provided by:: EMS Social determinants that could affect healthcare access:: substance use (tobacco use) Patient has the following chronic illnesses:: COPD (on 2 L O2 at home), aFib, HTN, DM, Takotsubo cardiomyopathy How is presenting disease/condition affected by chronic disease/condition?: exacerbated by Evaluation data The following diagnostics were reviewed and interpreted by me:: lab results, radiology exam(s) and EKG tracing(s) Lab and/or radiology exams considered but not ordered:: none Interpretation Summary: CBC normal, PT/INR/PTT normal, Creatinine 1.4, Magnesium normal, Troponin normal, BNP normal, Lipase normal. EKG done at 2219, NSR, rate of 97, mild artifact, left axis deviation, T wave inversions in V1 and V2, according to my interpretation. [facility] Report Signed Patient: DISHA ABRAHAM. Record#: [id number] Birthdate: 1960 Age/Sex: 64 / F Location: [facility] Attending Dr: Ordering Physician: Socorro Pond MD Date of Service: 03/21/25 Procedure(s): XR chest 1V portable Accession Number(s): [id number] cc: Acosta Kumari MD; NO PRIMARY/FAMILY,PHYSICIAN; Socorro Pond MD~ Examination: AP chest single view TECHNIQUE: AP portable upright chest single view Date and time: March 21, 2025, 10:55 PM INDICATIONS: Chest pain shortness of breath today FINDINGS: Normal heart size. The lungs are clear. Moderate osteopenia. IMPRESSION: No active disease. Dictated By: Acosta Kumari MD Signed By: <Electronically signed by Acosta Kumari MD in OV> 03/22/25 0003 Medications / Prescriptions Medications or Prescriptions considered but not ordered:: none Medication administrations:: Medication Administration History Morphine Sulfate (Morphine Sulf Inj 10 Mg/Ml Vial) 4 mg IVP Q1H PRN PRN Reason: PAIN SCALE 4-10(Mod-Sev Last Admin: 03/21/25 23:56 Dose: 4 mg Documented By: SANTK2 Sodium Chloride (Sodium Chloride Rt Blanca 0.9% 3 Ml Nebu) 3 ml INH PRN PRN PRN Reason: SOLN Stop: 04/20/25 22:17 Last Admin: 03/21/25 22:24 Dose: 3 ml Documented By: PAR Discontinued Medications Albuterol (Albuterol Rt 2.5 Mg/0.5 Ml Nebu) 10 mg INH X1 ONE Stop: 03/21/25 22:20 Last Admin: 03/21/25 22:24 Dose: 10 mg Documented By: CLOTILDE Albuterol (Albuterol Rt 2.5 Mg/0.5 Ml Nebu) Confirm Administered Dose 10 mg .ROUTE .STK-MED ONE Stop: 03/21/25 22:17 Last Admin: 03/21/25 22:33 Dose: Not Given Documented By: ALETHEA Non-Admin Reason: Duplicate Medication on eMAR Diazepam (Diazepam Inj 5 Mg/Ml Vial 2 Ml) 5 mg IVP X1 ONE Stop: 03/22/25 00:46 Last Admin: 03/22/25 00:52 Dose: 5 mg Documented By: ORIN Sodium Chloride (Ns) 1,000 mls @ 999 mls/hr IV .Q1H1M ONE Stop: 03/22/25 03:56 Last Admin: 03/22/25 04:26 Dose: 999 mls/hr Documented By: ORIN Ipratropium Mallie (Ipratropium Rt 0.5 Mg/ 2.5 Ml Nebu) mg INH X1 ONE Stop: 03/21/25 22:20 Ipratropium Mallie (Ipratropium Rt 0.5 Mg/ 2.5 Ml Nebu) Confirm Administered Dose 1 mg .ROUTE .STK-MED ONE Stop: 03/21/25 22:18 Last Admin: 03/21/25 22:33 Dose: Not Given Documented By: ALETHEA Non-Admin Reason: Cancelled by Provider Morphine Sulfate (Morphine Sulf Inj 10 Mg/Ml Vial) 4 mg IVP X1 ONE Stop: 03/21/25 23:31 Last Admin: 03/21/25 23:56 Dose: Not Given Documented By: ORIN Non-Admin Reason: Other, see note Morphine Sulfate (Morphine Sulf Inj 10 Mg/Ml Vial) Confirm Administered Dose 10 mg .ROUTE .STK-MED ONE Stop: 03/21/25 23:41 Last Admin: 03/22/25 00:40 Dose: Not Given Documented By: ORIN Non-Admin Reason: Override Medication Sodium Chloride (Sodium Chloride Rt Blanca 0.9% 3 Ml Nebu) Confirm Administered Dose 3 ml INH .STK-MED ONE Stop: 03/21/25 22:18 Last Admin: 03/22/25 02:02 Dose: Not Given Documented By: AVILA Non-Admin Reason: Override Medication see above Consultations Consultation(s) initiated? (list below): No Diagnosis Shortness of Breath Differential Diagnosis: acute exacerbation of chronic obstructive airways disease, congestive heart failure, community acquired pneumonia and asthma with exacerbation Most likely diagnosis given after review of the tests above:: see clinical impression below Admission Indicated Admission indicated?: not indicated Admission Request Was there a request for admission?: No Disposition Plan Disposition Plan: Discharge Discharge Attestation Discharge Attestation: The patient and all family members were given an opportunity to ask questions and understood the discharge instructions. Discharge instructions specifically effects, indications for sooner follow up or return to the emergency department, and the expected course of current diagnosis. Patient condition: Stable Discharge Plan Plan Patient Disposition: HOME (Self Care) Prescriptions/Referrals Prescriptions/Med Rec: No Action albuterol sulfate 90 mcg/actuation HFA aerosol inhaler 1 puff inhalation QID PRN (Reason: shortness of breath or wheezing) Qty: 8.5 0RF aspirin 81 mg tablet,delayed release (DR/EC) 81 mg PO QDAY Qty: 30 0RF lactulose 10 gram/15 mL solution 10 g PO QDAY PRN (Reason: constipation) Qty: 3785 0RF lidocaine 5 % adhesive patch,medicated 1 patch topical QDAY Qty: 30 0RF Rx Instructions: leave on most painful area for up to 12 hrs Trelegy Ellipta 200-62.5-25 mcg blister with device 1 inh inhalation QDAY Qty: 60 0RF methadone 10 mg/5 mL Solution 100 mg PO QDAY nitroglycerin 0.4 mg Tablet, Sublingual 0.4 mg BUCCAL Q5MIN PRN (Reason: Chest Pain) ondansetron 4 mg tablet,disintegrating 4 mg PO Q8H PRN (Reason: nausea and vomiting) Qty: 10 0RF meclizine 50 mg tablet 50 mg PO BID PRN (Reason: dizziness or vertigo) Qty: 10 0RF Proair Digihaler 90 mcg/actuation aero powdr breath act w/sensor 2 inh inhalation Q6H PRN (Reason: shortness of breath or wheezing) Qty: 1 0RF Eliquis 5 mg tablet 5 mg PO Q12H Patient Comments: TAKE ONE TABLET BY MOUTH TWICE DAILY FOR THE HEART insulin glargine [Basaglar KwikPen U-100 Insulin] 100 unit/mL (3 mL) insulin pen 26 unit subcut QAM methylprednisolone 4 mg tablets,dose pack 4 mg PO QAM Qty: 21 0RF furosemide [Lasix] 20 mg tablet 20 mg PO QAM 30 Days Qty: 30 0RF Referrals: No Primary/Family,Physician [Primary Care Provider] - In 1 week Problem List Clinical Impression: SOB (shortness of breath), COPD (chronic obstructive pulmonary disease) Patient/Caregiver Discharge Instructions Education Materials: COPD: Wheezing and Chest Tightness Print Language: Swedish Stand Alone Forms: [facility]nn Award Info., Patient Portal Info Letter
[2025-03-21 22:17] VITALS: PULSE 120; RESP 26; O2SAT 80; BMI 26.6
[2025-03-21 22:24] VITALS: PULSE 98
[2025-03-21] MEDS: SODIUM CHLORIDE RT SOL 0.9% 3 ML NEBU INH (22:24)
[2025-03-21] MEDS: ALBUTEROL RT 2.5 MG/0.5 ML NEBU 10 MG INH (22:24)
[2025-03-21 22:33] VITALS: PULSE 98
[2025-03-21 22:36] VITALS: BP 159/80; PULSE 94; RESP 17; O2SAT 100
[2025-03-21 22:38] VITALS: PULSE 124; PULSE 95; RESP 12; RESP 16; RESP 23; O2SAT 100; O2SAT 97
--- NOTE | 2025-03-21 22:49 | XR_ITS ---
Examination: AP chest single view TECHNIQUE: AP portable upright chest single view Date and time: March 21, 2025, 10:55 PM INDICATIONS: Chest pain shortness of breath today FINDINGS: Normal heart size. The lungs are clear. Moderate osteopenia. IMPRESSION: No active disease.
[2025-03-21 23:37] LABS: Basophils % (Auto) 0 % (0-2.5); Eosinophils # (Auto) 0.2 Thou/mm3 (0.0-0.5); Eosinophils % (Auto) 2 % (0-10); Hematocrit 31.8 % (36.0-46.0); Hemoglobin 10.3 g/dL (12.0-16.0); Immature Granulocytes % (Auto) 0 % (0-0); Immature Granulocytes Auto 0.03 Thou/mm3 (0.00-0.00); Lymphocytes # (Auto) 2.3 Thou/mm3 (1.0-4.8); Lymphocytes % (Auto) 24 % (10-50); Mean Corpuscular HGB Conc 32.4 g/dl (31.0-37.0); Mean Corpuscular Hemoglobin 25.5 pg (25.0-35.0); Mean Corpuscular Volume 79 fL (80-100); Monocytes # (Auto) 0.8 Thou/mm3 (0.0-0.8); Monocytes % (Auto) 8 % (0-12); Neutrophils # (Auto) 6.1 Thou/mm3 (1.8-7.7); Neutrophils % (Auto) 65 % (37-80); Nucleated Red Blood Cell % 0 /100 WBC (0); Platelet Count 276 Thou/mm3 (140-440); RDW Standard Deviation 38.1 fL (36.4-46.3); Red Blood Count 4.04 Miln/mm3 (4.00-5.20); White Blood Count 9.5 Thou/mm3 (3.6-11.0)
[2025-03-21 23:53] LABS: Alanine Aminotransferase 11 U/L (10-49); Albumin, Serum 4.4 gm/dL (3.4-4.8); Albumin/Globulin Ratio 1.8 (1.2-2.2); Alkaline Phosphatase 68 U/L (46-116); Anion Gap 10 (7-16); Aspartate Amino Transferase 19 U/L (0-34); BUN/Creatinine Ratio 19 Ratio (12-20); Bilirubin,Total 0.3 mg/dL (0.3-1.2); Blood Urea Nitrogen 27 mg/dL (9-23); Calcium 9.5 mg/dL (8.3-10.6); Calcium (Corrected) 9.5 mg/dL (8.5-10.1); Carbon Dioxide 25.6 mMol/L (20.0-31.0); Chloride 103 mMol/L (98-107); Creatinine (Component) 1.4 mg/dL (0.6-1.3); Estimated Creatinine Clearance 41.1 mL/min (>60); Globulin 2.4 gm/dL (2.3-3.5); Glucose 148 mg/dL (74-106); Lipase 34 U/L (12-53); Magnesium 2.2 mg/dL (1.6-2.6); Osmolality,Calculated 285 (275-295); Potassium 4.3 mMol/L (3.4-5.1); Sodium 139 mMol/L (136-145); Total Protein 6.8 gm/dL (5.7-8.2); Troponin I < 0.020 ng/mL (0.0-0.045); eGFR 42 See Note
[2025-03-21 23:56] LABS: Partial Thromboplastin Time 26.4 Seconds (22.0-36.0); Prothrombin Time 10.8 Seconds (9.0-12.2)
[2025-03-21] MEDS: MORPHINE SULF INJ 10 MG/ML VIAL 4 MG IVP (23:56)
[2025-03-22 00:09] LABS: B-Type Natriuretic Peptide 28 pg/mL (0-100)
[2025-03-22 00:15] VITALS: BP 177/74; PULSE 112; RESP 18; O2SAT 94
[2025-03-22] MEDS: DIAZEPAM INJ 5 MG/ML VIAL 2 ML IVP (00:52)
[2025-03-22 01:35] VITALS: BP 103/49; PULSE 83; RESP 17; O2SAT 94
[2025-03-22 02:19] VITALS: BP 120/61; PULSE 75; RESP 16; O2SAT 96
[2025-03-22 02:20] VITALS: PULSE 73
[2025-03-22] MEDS: SODIUM CHLORIDE 0.9% 1000 ML 1,000 ML 999 ML IV (04:26)
--- NOTE | 2025-03-22 05:30 | PC.NURSE ---
Called [facility] at [phone] at patients request to bring her home oxygen and pick her up for discharge. Per [facility] he is still in bed and will be here when he gets here. Nurse again asked [facility] if he could bring patients home oxygen and if he could give nurse an approximate time of arrival. Next of kin again stated he will be here when he gets here. Patient was notified. All discharge instructions reviewed with patient. Patient verbalized understanding. Due to unknown time of departure nurse will leave IV in at this time. Patient allowed to redress and is awaiting family member.
== END 2025-03-22 06:32 | disposition home or self-care (01) ==
PROVIDERS: Emergency Provider Emergency Medicine
DX: J44.9 Chronic obstructive pulmonary disease, unspecified (principal); I48.91 Unspecified atrial fibrillation; I10 Essential (primary) hypertension; Z99.81 Dependence on supplemental oxygen; E11.9 Type 2 diabetes mellitus without complications
CPT/HCPCS: 36415; 71045; 80053; 83690; 83735; 83880; 84484; 85025; 85610; 85730; 93005; 94640; 94644; 94660; 96361; 96374; 96375; 99284; J2270; J3360; J7030

== ENCOUNTER 2025-04-03 11:44 | Inpatient (IN) | payer MEDICAID, SELFPAY ==
[2025-04-03] VITALS (12 sets, daily range): BP systolic 128–186; BP diastolic 70–93; PULSE 95–120; RESP 14–24; TEMP 37–38.1; O2SAT 92–96; BMI 24.3
--- NOTE | 2025-04-03 11:52 | EKG_ITS ---
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
--- NOTE | 2025-04-03 12:12 | PD.EDADULT ---
ED General RME/HPI General Chief complaint: Shortness of Breath/Dyspnea Stated complaint: SOB Time Seen by Provider: 04/03/25 12:18 Arrival date/time: 04/03/25 11:44 RME / HPI RME / HPI narrative: DR. GARCIA MAIN ED EVALUATION: 64 year old female presents to the Emergency Department [facility] with complaint of shortness of breath today. Associated symptoms include a headache and dull chest pain since 730 AM. She states she has a cough and a cold onset 3 days. No fevers or chills. No other symptoms at this time. PMHx: COPD, CHF. Social Hx: Former smoker. Heroin and methamphetamine former abuse. Related Data Home Medications ?Medication ?Instructions ?Recorded ?Confirmed methadone 10 mg/5 mL oral solution 100 mg PO QDAY 02/07/24 01/03/25 nitroglycerin 0.4 mg sublingual 0.4 mg buccal Q5MIN PRN Chest Pain 02/07/24 01/03/25 tablet apixaban 5 mg tablet (Eliquis) 5 mg PO Q12H 01/02/25 01/02/25 insulin glargine 100 unit/mL (3 26 unit subcut QAM 01/03/25 01/03/25 mL) subcutaneous pen (Basaglar KwikPen U-100 Insulin) Previous Rx's ?Medication ?Instructions ?Recorded albuterol sulfate 90 mcg/actuation 1 puff inhalation QID PRN 08/06/24 aerosol inhaler shortness of breath or wheezing #8.5 grams aspirin 81 mg tablet,delayed 81 mg PO QDAY #30 tabs 08/06/24 release fluticasone fur. 200 mcg-umeclid 1 inh inhalation QDAY #60 ea 08/06/24 62.5 mcg-vilant 25 mcg inhalat.powder (Trelegy Ellipta) lactulose 10 gram/15 mL oral 10 g (15 mL) PO QDAY PRN 08/06/24 solution constipation #3,785 mL lidocaine 5 % topical patch 1 patch topical QDAY #30 ea 08/06/24 meclizine 50 mg tablet 50 mg PO BID PRN dizziness or 10/27/24 vertigo #10 tabs ondansetron 4 mg disintegrating 4 mg PO Q8H PRN nausea and 10/27/24 tablet vomiting #10 tabs albuterol sulfate 90 mcg/actuation 2 inh inhalation Q6H PRN shortness 11/01/24 breath activated powder of breath or wheezing #1 ea inhaler,sensor (Proair Digihaler) methylprednisolone 4 mg tablets in 4 mg PO QAM COPD #21 tabs 01/04/25 a dose pack furosemide 20 mg tablet (Lasix) 20 mg PO QAM 30 days #30 tabs 01/08/25 Allergies Allergy/AdvReac Type Severity Reaction Status Date / Time codeine Allergy Severe RASH Verified 03/21/25 22:27 diphenhydramine HCl Allergy Severe Hives Verified 03/21/25 22:27 egg Allergy Severe Rash Verified 03/21/25 22:27 Penicillins Allergy Severe SWELLING, Verified 03/21/25 22:27 RESP DISTRESS pentazocine (From Talwin) Allergy Severe Hives Verified 03/21/25 22:27 Review of Systems Review of Systems Systems Reviewed: All systems reviewed, normal except as documented Past Medical History Past Medical History NEUROLOGIC: Positive Neurological Disorders, Cerebrovascular Accident and Meningitis CARDIAC: Positive Cardiac Disorders, Myocardial Infarction, Cardiac Arrhythmia, Atrial Fibrillation, Angina, Hypercholesterolemia, Congestive Heart Failure, Edema and Hypertension RESPIRATORY: Positive Chronic Obstructive Pulmonary Disease (COPD), Asthma, Bronchitis, Emphysema and Pneumonia MUSCULOSKELETAL: Positive Musculoskeletal Disorders, Arthritis and Osteoporosis ENT: Positive Cataracts and Blind ENDOCRINE: Positive Endocrine Disorders and Diabetes Mellitus Type 2 HEMATOLOGIC: Positive Anemia PSYCHO/SOCIAL: Positive Recreational Drug Use, Depression and Anxiety OTHER HISTORY: Positive Hospitalization, Shingles and Falls Family History FAMILY HISTORY: Positive Family Cardiac Disorders Surgical History SURGICAL: Positive Eye Surgery, Tonsillectomy and Abdominal Surgery Social History SMOKING STATUS: Former smoker SECOND HAND EXPOSURE: No SUBSTANCE USE: former substance user, heroin and methamphetamine (Former drug use, states she quit 20 years ago; tested positive for methamphetamine 03/31/2023.) ED Exam Narrative Physical exam: Physical Exam: General: The vital signs were reviewed. The patient is non-toxic, in no apparent distress and appears healthy with a patent airway, no respiratory distress and has no apparent circulatory problems. Head & Scalp: Normocephalic, atraumatic. Face: Appears normal and is without lesions, deformity. Ears: Left external pinna appears normal. Right external pinna appears normal. Eyes: The sclera is anicteric. No obvious photophobia. The Left and Right Orbit/Lid/Conjunctiva appears normal without swelling, discoloration or injection. Nose: The nose is without deformity, discharge or tenderness; Throat: Appears normal. The mucous membranes are pink and moist without exudates, redness or mass seen. The tongue appears normal. Neck: The neck is supple and no apparent mass or adenopathy. Chest: The chest wall is normal in size and symmetry and has no chest wall tenderness or crepitus. The patient displays normal ventilator effort without retractions, accessory muscle use and has adequate air movement bilaterally with no wheezes and no rales. It should be noted while this patient has known COPD she has totally clear lungs with good expiratory air movement. Cardiovascular: Regular rate and rhythm; No murmurs, rubs, or gallops; Gastrointestinal: The abdomen appears normal. No obvious hernias or mass. The abdomen is soft and benign, non-distended, with no pain, no guarding and no rebound tenderness. Bowel sounds are present and normal sounding. No CVA tenderness. Genitourinary: Back/Spine: Normal inspection nontender Extremities/Musculoskeletal/lymphatic: The bilateral upper and lower extremities are warm. There is no evidence of arterial insufficiency. There is no evidence of venous insufficiency/edema. The patient spontaneously moves bilateral upper and lower extremities with no pain and no limitation of movement. There is no apparent, injury or trauma. Skin: The skin is warm, dry and intact. No rashes. No petechia. No purpura. No abnormal bruising. The color is appropriate with no cyanosis. Mental status/Psychiatric: Mental status is appropriate for age. The patient has no apparent delusions, visual hallucinations, no apparent audible hallucinations. The patient has no apparent suicidal thoughts/ideation and no apparent homicidal thoughts/ideation. Neurological: The patient is awake, alert, interactive, cordial, cooperative and is oriented to name and situation. The patient follows commands and answers historical question with no impairment. There is no visual disturbance apparent. The pupils are equal and reactive bilaterally with normal eye movements and no diplopia The bilateral upper and lower extremities have normal strength, normal range of motion and normal functioning. The gait, station and balance appear to be baseline with no acute change Course Quality Measures none Orders Category Date Time Status Bedside COVID-19 Antigen Test NOW Care 04/03/25 12:44 Active Bedside Influenza A&B Antigen Test NOW Care 04/03/25 12:44 Completed EKG (ED ONLY) *Do not use* NOW Care 04/03/25 11:52 Completed Insert IV NOW Care 04/03/25 16:40 Active Miscellaneous Nursing Order X1 Care 04/03/25 16:[address] head/brain wo con Stat Exams 04/03/25 15:41 Completed EKG (ED Only) Stat Exams 04/03/25 11:52 Draft XR chest 1V portable Stat Exams 04/03/25 12:20 Completed B-Type Natriuretic Peptide Stat Lab 04/03/25 12:28 Completed Blood Culture (Lab) Stat Lab 04/03/25 17:15 Received CBC Stat Lab 04/03/25 12:28 Completed Comprehensive Metabolic Panel Stat Lab 04/03/25 12:28 Completed Drug Screen,Urine Stat Lab 04/03/25 16:39 Completed Lactate (Lactic Acid) Stat Lab 04/03/25 12:28 Completed Lipase Stat Lab 04/03/25 12:28 Completed Magnesium Stat Lab 04/03/25 12:28 Completed PTT [Partial Thromboplastin Time] Stat Lab 04/03/25 17:19 Completed Procalcitonin Stat Lab 04/03/25 17:10 Completed RSV [Respiratory Syncytial Virus Ag] Stat Lab 04/03/25 15:00 Completed Strep A Rapid Stat Lab 04/03/25 15:00 Completed Troponin I Stat Lab 04/03/25 12:28 Completed Urinalysis Stat Lab 04/03/25 16:39 Completed Urinalysis, C/S if Indicated Stat Lab 04/03/25 16:39 Completed Urine Culture Stat Lab 04/03/25 16:39 Received VBG [Venous Blood Gas] Stat Lab 04/03/25 17:10 Completed ALBUTEROL RT 0.5ml [Proventil Rt 0.5ml] Med 04/03/25 16:27 Discontinued 10 mg INH X1 ONE Acetaminophen Tab [Tylenol ES Tab] Med 04/03/25 15:41 Discontinued 1,000 mg PO X1 ONE Meropenem Inj [Merrem Inj] 1,000 mg Med 04/03/25 16:33 Discontinued SODIUM CHLORIDE 0.9% (Popper) [Ns 0.9% (P)] 50 ml IV X1 MethylPREDNISolone.* [SoluMEDROL Inj] Med 04/03/25 16:27 Discontinued 125 mg IVP X1 ONE Sodium Chloride 0.9% 1000 ml [Ns] 1,987 ml Med 04/03/25 16:35 Discontinued IV 1,987 mls/hr Sodium Chloride Rt Blanca 0.9% [NS Rt Blanca 0.9%] Med 04/03/25 16:27 Active 3 ml INH PRN PRN fentaNYL INJ [Sublimaze Inj] Med 04/03/25 15:06 Discontinued 50 mcg IM X1 ONE Vital Signs Vital signs: Vital Signs Temperature 98.6 F 04/03/25 11:47 Pulse Rate 112 H 04/03/25 11:47 Respiratory Rate 22 H 04/03/25 11:47 Blood Pressure 176/93 H 04/03/25 11:47 Pulse Oximetry (%) 95 04/03/25 11:47 Oxygen Delivery Method Nasal Cannula 04/03/25 11:47 Oxygen Flow Rate 6 04/03/25 11:47 Critical Care Time Critical Care Time Critical Care Time: Yes Total Critical Care Time (min.): 55 Attestation: The high probability of sudden, clinically significant deterioration in the patient's condition required the highest level of my preparedness to intervene urgently. The services I provided to this patient were to treat and/or prevent clinically significant deterioration. Services included the following: chart data review, reviewing nursing notes and/or old charts, documentation time, application support consultant collaboration regarding findings and treatment options, medication orders and management, direct patient care, vital sign assessments and ordering, interpreting and reviewing diagnostic studies and lab tests. Aggregate critical care time includes only time during which I was engaged in work directly related to the patient's care, as described above, whether at bedside or elsewhere in the Emergency Department. It did not include time spent performing other reported procedures or the services of residents, students, nurses or physician assistants. Discharge Plan Plan Patient Disposition: Admit Acute Care w/in Hospital Discharge Disposition comment: Hospitalist Prescriptions/Referrals Prescriptions/Med Rec: No Action albuterol sulfate 90 mcg/actuation HFA aerosol inhaler 1 puff inhalation QID PRN (Reason: shortness of breath or wheezing) Qty: 8.5 0RF aspirin 81 mg tablet,delayed release (DR/EC) 81 mg PO QDAY Qty: 30 0RF lactulose 10 gram/15 mL solution 10 g PO QDAY PRN (Reason: constipation) Qty: 3785 0RF lidocaine 5 % adhesive patch,medicated 1 patch topical QDAY Qty: 30 0RF Rx Instructions: leave on most painful area for up to 12 hrs Trelegy Ellipta 200-62.5-25 mcg blister with device 1 inh inhalation QDAY Qty: 60 0RF methadone 10 mg/5 mL Solution 100 mg PO QDAY nitroglycerin 0.4 mg Tablet, Sublingual 0.4 mg BUCCAL Q5MIN PRN (Reason: Chest Pain) ondansetron 4 mg tablet,disintegrating 4 mg PO Q8H PRN (Reason: nausea and vomiting) Qty: 10 0RF meclizine 50 mg tablet 50 mg PO BID PRN (Reason: dizziness or vertigo) Qty: 10 0RF Proair Digihaler 90 mcg/actuation aero powdr breath act w/sensor 2 inh inhalation Q6H PRN (Reason: shortness of breath or wheezing) Qty: 1 0RF Eliquis 5 mg tablet 5 mg PO Q12H Patient Comments: TAKE ONE TABLET BY MOUTH TWICE DAILY FOR THE HEART insulin glargine [Basaglar KwikPen U-100 Insulin] 100 unit/mL (3 mL) insulin pen 26 unit subcut QAM methylprednisolone 4 mg tablets,dose pack 4 mg PO QAM Qty: 21 0RF furosemide [Lasix] 20 mg tablet 20 mg PO QAM 30 Days Qty: 30 0RF Referrals: Apolinar Tai MD [Primary Care Provider] - In 1 week Problem List Clinical Impression: COPD exacerbation, Chest pain, Fever, Viral URI, Marijuana use Impression comment: Drug screen is positive for methamphetamine patient denies this. Patient/Caregiver Discharge Instructions Print Language: Citizen Of [place] Stand Alone Forms: Kaylynn Award Info., Patient Portal Info Letter MDM Narrative MDM hospital course: Patient comes in complaining of shortness of breath and chest pain also has a new cough. She is thinking she needs a breathing treatment yet her lungs are clear to auscultation. There is no audible wheezes. She does have some nasal and upper respiratory congestion and may have a viral URI. Will get a workup for flu influenza and because she is got having chest discomfort with this we will workup for cardiac at the same time. Medical workup reveals white count of 10.6 hemoglobin of 9.7 which is similar to her previous hemoglobins. She got microcytic indices at 77 MCV. Platelet count is 198. Electrolytes are within normal limits BUN is 20 creatinine 1.6 is consistent with her most recent renal function. Glucose is 195. Transaminases are within normal limits troponin and bilirubin and BNP's are all negative. Influenza AMB and COVID are all negative. Group A strep and RSV are still pending at 1544 hrs. Chest x-ray came back negative there is no infiltrates no effusion no acute. I went back and reevaluate this patient she is complaining of more pain and now she is focusing on her head. States her chest does not bother her at the present time. Patient also states she does not want to leave and wants to be here longer if she does not want to go home I told her that we have no reason to admit her and then she stated her head is hurting more and more so I offered her 1000 mg of Tylenol get a scan of her head and reevaluate her. Clinically there seems to be some secondary gain issues looMING. Clinically she has a cough does not feel good headache and appears to be some viral illness. But since her head is hurting more we will scan her head and reevaluate her. CT of the head reveals>>>>>>>> still not done at 1631 hrs. but now the patient has spiked a fever to 100.6 she is also breathing little faster and she is got some mild wheezes which were not heard earlier we will give her a continuous neb. Will give her some acetaminophen. Her RSV and strep came back negative her COVID and flu were negative for getting a cath urine at this point and I will start her on antibiotics as I do not know the source. Because of the continuous neb he should be, critical care patient. After continuous nebs she is moving air better but she still wheezing. Since she is got fever shortness of breath no obvious source of fever probably viral illness nonetheless she could still have a pneumonia is not being visualized at this time. She has a urine drug screen positive for methamphetamine but denies using this states she has been taking some cough and cold medicines She Fehnel screen is positive but as because she got fentanyl for pain prior to the urine drug screen collection. Vale Fuller, marcela scribing for and in the presence of Dr. Garcia. Clinical Information Provided by patient and EMS Medical Records [facility]ed [facility] and [facility] Meds/Rx Considered, not Ordered None Labs/Rad/Tests considered, not Ordered None Chronic Illness/Social Conditions Add or document further as needed: PMHx: COPD, CHF. Social Hx: Former smoker. Heroin and methamphetamine former abuse. EKG EKG Interpretation narrative: My interpretation: EKG performed at 1157 hours, sinus tachycardia, rate 106, no STEMI Lab Interpretation Labs: see narrative above Imaging Imaging interpretation: see narrative above Radiology reports / interpretation(s): Procedure(s): XR chest 1V portable Accession Number(s): [id number] cc: Cj Garcia MD; Acosta Kumari MD~ Examination: AP chest single view TECHNIQUE: AP portable sitting chest single view Date and time: April 03, 2025 1231 hours Comparison March 21, 2025 INDICATIONS: Chest pain today FINDINGS: Normal heart size. Lungs are clear. The osseous structures are intact IMPRESSION: No active disease Dictated By: Acosta Kumari MD Medication Administration(s) Medication Administration History Sodium Chloride (Sodium Chloride Rt Blanca 0.9% 3 Ml Nebu) 3 ml INH PRN PRN PRN Reason: SOLN Stop: 05/03/25 16:26 Last Admin: 04/03/25 16:45 Dose: 3 ml Documented By: HEATHER Discontinued Medications Acetaminophen (Acetaminophen 500 Mg Tablet) 1,000 mg PO X1 ONE Stop: 04/03/25 15:42 Last Admin: 04/03/25 15:48 Dose: 1,000 mg Documented By: MM Albuterol (Albuterol Rt 2.5 Mg/0.5 Ml Nebu) 10 mg INH X1 ONE Stop: 04/03/25 16:28 Last Admin: 04/03/25 16:44 Dose: 10 mg Documented By: HEATHER Fentanyl Citrate (Fentanyl Cit Inj 50 Mcg/Ml Amp 2ml) 50 mcg IM X1 ONE Stop: 04/03/25 15:07 Last Admin: 04/03/25 15:18 Dose: 50 mcg Documented By: ANTOLIN Meropenem 1,000 mg/ Sodium (Chloride) 50 mls @ 100 mls/hr IV X1 ONE Stop: 04/03/25 16:34 Last Infusion: 04/03/25 18:12 Dose: Infused Documented By: Admin: 04/03/25 17:35 Dose: 100 mls/hr Documented By: ANTOLIN Sodium Chloride (Ns) 1,987 mls @ 1,987 mls/hr 30 ml/kg infuse over 60 min (1987 ml) IV .Q1H ONE; Protocol Stop: 04/03/25 17:34 Last Admin: 04/03/25 18:12 Dose: 1,987 mls/hr Documented By: ANTOLIN Methylprednisolone Sodium Succinate (Methylprednisolone Sod Succ 62.5 Mg/Ml 2ml Vial) 125 mg IVP X1 ONE Stop: 04/03/25 16:28 Last Admin: 04/03/25 17:31 Dose: 125 mg Documented By: ANTOLIN Diagnosis Differential diagnosis: pneumonia, URI, COVID, Influenza Most likely dx, and/or detailed dx discussion: See narrative above. Dispositon Disposition: other (Patient signed out to Dr. Robles, pending head CT. )
--- NOTE | 2025-04-03 12:20 | XR_ITS ---
Examination: AP chest single view TECHNIQUE: AP portable sitting chest single view Date and time: April 03, 2025 1231 hours Comparison March 21, 2025 INDICATIONS: Chest pain today FINDINGS: Normal heart size. Lungs are clear. The osseous structures are intact IMPRESSION: No active disease
[2025-04-03 12:34] LABS: Lactate (Lactic Acid) 1.2 mMol/L (0.4-2.0)
[2025-04-03 12:38] LABS: Basophils # (Auto) 0.0 Thou/mm3 (0.0-0.2); Basophils % (Auto) 0 % (0-2.5); Eosinophils # (Auto) 0.2 Thou/mm3 (0.0-0.5); Eosinophils % (Auto) 2 % (0-10); Hematocrit 29.2 % (36.0-46.0); Hemoglobin 9.7 g/dL (12.0-16.0); Immature Granulocytes Auto 0.05 Thou/mm3 (0.00-0.00); Lymphocytes # (Auto) 1.7 Thou/mm3 (1.0-4.8); Lymphocytes % (Auto) 16 % (10-50); Mean Corpuscular HGB Conc 33.2 g/dl (31.0-37.0); Mean Corpuscular Hemoglobin 25.7 pg (25.0-35.0); Mean Corpuscular Volume 77 fL (80-100); Monocytes # (Auto) 0.8 Thou/mm3 (0.0-0.8); Monocytes % (Auto) 7 % (0-12); Neutrophils # (Auto) 7.9 Thou/mm3 (1.8-7.7); Neutrophils % (Auto) 74 % (37-80); Nucleated Red Blood Cell # 0.00 Thou/mm3 (0.00-0.00); Nucleated Red Blood Cell % 0 /100 WBC (0); Platelet Count 198 Thou/mm3 (140-440); RDW Standard Deviation 38.2 fL (36.4-46.3); Red Blood Count 3.78 Miln/mm3 (4.00-5.20); White Blood Count 10.6 Thou/mm3 (3.6-11.0)
[2025-04-03 12:55] LABS: Alanine Aminotransferase 14 U/L (10-49); Albumin, Serum 4.0 gm/dL (3.4-4.8); Albumin/Globulin Ratio 1.5 (1.2-2.2); Alkaline Phosphatase 68 U/L (46-116); Anion Gap 7 (7-16); Aspartate Amino Transferase 23 U/L (0-34); BUN/Creatinine Ratio 18 Ratio (12-20); Bilirubin,Total 0.2 mg/dL (0.3-1.2); Blood Urea Nitrogen 28 mg/dL (9-23); Calcium 9.0 mg/dL (8.3-10.6); Calcium (Corrected) 9.0 mg/dL (8.5-10.1); Carbon Dioxide 25.7 mMol/L (20.0-31.0); Chloride 106 mMol/L (98-107); Creatinine (Component) 1.6 mg/dL (0.6-1.3); Estimated Creatinine Clearance 32.4 mL/min (>60); Globulin 2.6 gm/dL (2.3-3.5); Glucose 195 mg/dL (74-106); Lipase 36 U/L (12-53); Magnesium 2.2 mg/dL (1.6-2.6); Osmolality,Calculated 288 (275-295); Potassium 4.8 mMol/L (3.4-5.1); Sodium 139 mMol/L (136-145); Total Protein 6.6 gm/dL (5.7-8.2); Troponin I < 0.020 ng/mL (0.0-0.045); eGFR 36 See Note
[2025-04-03 13:21] LABS: B-Type Natriuretic Peptide 26 pg/mL (0-100)
[2025-04-03] MEDS: fentaNYL CIT INJ 50 mCg/ML AMP 2ML IM (15:18)
--- NOTE | 2025-04-03 15:41 | XR_ITS ---
Examination: CT brain head without contrast. 2-D sagittal coronal reconstructions Date and time of exam:April 13, 2025, 1949 hours COMPARISON: March 03, 2025 INDICATIONS: Onset of headache today CTDI: vol (mGy):51.2 DLP: (mGycm):1091 Technique: Multiple CT axial sections of the brain have been obtained, 5 mm slice thickness. Contrast has not been administered. 2-D sagittal, coronal reconstructions have been obtained Low dose protocols were performed. One or more of the following dose reduction techniques were used; automated exposure control, adjustment of the mA and/or KV according to patient size, use of iterative reconstruction technique. Findings: No significant ventricular enlargement. Small old infarcts in the left basal ganglia Intra-axial or extra-axial hemorrhage density is not seen. No mass effect or midline shift Basal cisterns are not remarkable. Fourth ventricle is midline. Cranial vault intact. 8 mm retention cyst anterior right maxillary antrum Impression: Negative for acute hemorrhage, mass effect or midline shift
[2025-04-03] MEDS: ACETAMINOPHEN 500 MG TABLET 1000 MG PO (15:48)
[2025-04-03 16:00] LABS: Respiratory Syncytial Virus Ag Negative (Negative); Strep A Rapid Negative (Negative)
[2025-04-03] MEDS: ALBUTEROL RT 2.5 MG/0.5 ML NEBU 10 MG INH (16:44)
[2025-04-03] MEDS: SODIUM CHLORIDE RT SOL 0.9% 3 ML NEBU INH (16:45)
[2025-04-03 17:09] LABS: Collection Type, Urine Clean Catch
[2025-04-03 17:17] LABS: Bacteria,Urine 4+; Bilirubin,Urine Negative (Negative); Blood,Urine 2+ (Negative); Clarity,Urine Clear (Clear/Hazy); Color,Urine Lt-Yellow (Lt Yel-Yel); Glucose, Urine Negative (Negative); Hyaline Casts,Urine < 1 /hpf (0-1); Ketones,Urine Negative (Negative); Leukocyte Esterase,Urine Positive (Negative); Nitrite,Urine Positive (Negative); PH,Urine 5.0 (5.0-7.0); Protein,Urine 1+ (Neg - Trace); RBC,Urine 25 /hpf (0-3); Specific Gravity,Urine 1.014 (1.001-1.035); Squamous Epithelial Cell,Urine 1 /hpf (0-5); Urobilinogen,Urine Negative mg/dL (0.0-1.0); WBC,Urine 6 /hpf (0-5)
[2025-04-03 17:22] LABS: Culture Indicated,Urine Yes
[2025-04-03 17:24] LABS: Base Excess, Venous -1 (-3-3); O2 Saturation, Venous 73 % (96-97); PCO2, Venous 52 mmHg (36-56); PO2, Venous 39 mmHg (15-58); pH, Venous 7.30 (7.33-7.66)
[2025-04-03 17:28] LABS: Amphetamine/Methamp Scrn,U Positive (Negative); Barbiturate Screen,Urine Negative (Negative); Benzodiazepines Screen,Urine Negative (Negative); Benzoylecgonine Screen, Ur Negative (Negative); Fentanyl Screen,Urine Positive (Negative); Opiate Screen,Urine Negative (Negative); THC Screen,Urine Positive (Negative)
[2025-04-03] MEDS: MethylPREDNISolone SOD SUCC 62.5 MG/ML 2ML VIAL 125 MG IVP (17:31)
[2025-04-03] MEDS: MEROPENEM INJ 1,000 MG in SODIUM CHLORIDE 0.9% (Popper) 50 ML 100 MG IV (17:35)
[2025-04-03 17:43] LABS: Partial Thromboplastin Time 25.9 Seconds (22.0-36.0)
[2025-04-03 17:57] LABS: Procalcitonin 0.13 ng/ml (0.0-0.49)
[2025-04-03] MEDS: SODIUM CHLORIDE 0.9% 1987 ML IV (18:12)
--- NOTE | 2025-04-03 20:50 | ESHP_ITS ---
Documentation for date of: 04/03/25 HPI History of Present Illness History of present illness: Christina Diaz is a 64-year-old F with a PMH of ESBL UTI, COPD on 2-3 L at home, CHF, atrial fibrillation on Eliquis, Takotsubo's cardiomyopathy, substance use disorder (heroin and methamphetamine), type 2 diabetes, HTN, viral meningitis, and stroke who presents today with a chief complaint of headache w/ neck pain and shortness of breath w/ chest pain. Patient states that the headache began as ear pain and that this started a long time ago . However, the neck and head pain have severely worsened since last night. The neck pain and headache are localized posteriorly and the sensation is characterized as steady and sharp. She states that rotating her head makes the pain worse. In terms of the chest pain and shortness of breath, she also says that they started long ago and that the chest pain feels pressured in nature. She endorses requiring use of her albuterol rescue inhaler more than 5 times per day as well. She denies any recent sick contacts or pertinent travel history. At the time of interview, her most significant complaint was the neck pain and headache which she described as an 8/10 in pain severity. In the ED, vitals showed: BP 176/93 HR 112 RR 22 Temp 98.6 SpO2 95% on nasal cannula (6% Flow Rate) ED Course: CBC showed low RBC 3.78, low Hgb 9.7 and low MCV 77. CMP showed high BUN 28, creatinine 1.6 (baseline 1.4-1.6), low eGFR 36 and high glucose 195. UA showed 1+ protein, 2+ blood, high RBC 25, 4+ bacteria, and positive nitrite and LE. Utox was positive for fentanyl (given in the ED), amphetamine/meth, and marijuana. In the ED, patient was given fentanyl citrate x1, inhaled albuterol x1, IV methylprednisolone x1, meropenem x1, and 2 L bolus of NS. On Imaging: CXR and head CT were negative for notable findings. EKG showed sinus tachycardia with possible old inferior myocardial infarction. Patient was admitted for the work-up and management of complicated UTI, COPD exacerbation, and neck pain/headache. Review of Systems Review of Systems Narrative Review of Systems: General: Endorses fever and generalized weakness. Denies chills or rashes HEENT: Endorses itchy eyes. Endorses rhinorrhea yesterday. Denies congestion or sore throat Heart: Endorses chest pain and palpitations. Lungs: Endorses SOB and cough producing green sputum. Endorses wheezing. Abdomen: Endorses constipation. Denies abdominal pain, nausea, vomiting, diarrhea, or blood in stool Genitourinary: Endorses urinary frequency. Denies urinary urgency, dysuria, or hematuria Neurology: Denies any changes in vision, weakness or difficulty speaking Extremities: Endorses ankle swelling. Review of systems otherwise negative except what is mentioned above. Past Medical History Past Medical History NEUROLOGIC: Positive Neurological Disorders, Cerebrovascular Accident and Meningitis CARDIAC: Positive Cardiac Disorders, Myocardial Infarction, Cardiac Arrhythmia, Atrial Fibrillation, Angina, Coronary Artery Disease, Atherosclerotic Heart Disease, Hypercholesterolemia, Congestive Heart Failure, Cardiomyopathy (Takotsubo's cardiomyopathy), Edema and Hypertension RESPIRATORY: Positive Respiratory Disorders, Chronic Obstructive Pulmonary Disease (COPD), Asthma, Bronchitis, Emphysema, Pneumonia and Smoking (Smoked from age [age] (1 pack/day), currently does not smoke) MUSCULOSKELETAL: Positive Musculoskeletal Disorders, Arthritis and Osteoporosis ENT: Positive Cataracts and Blind ENDOCRINE: Positive Endocrine Disorders and Diabetes Mellitus Type 2 HEMATOLOGIC: Positive Anemia PSYCHO/SOCIAL: Positive Recreational Drug Use, Depression and Anxiety OTHER HISTORY: Positive Hospitalization, Shingles and Falls Family History FAMILY HISTORY: Positive Family Cardiac Disorders Surgical History SURGICAL: Positive Eye Surgery, Tonsillectomy, Abdominal Surgery (oophorectomy for polycystic ovary during grade school years) and Bowel Surgery (appendectomy) Social History SOCIAL: Of note, patient denied recent use of any recreational drugs but Utox was positive for methamphetamine and marijuana (also positive for fentanyl but she received it in the ED). 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 Skin: Warm, dry, intact, no obvious rash. Head: Normocephalic, atraumatic. Eye: Normal conjunctiva, PERRL. Throat: Oral mucosa moist. No obvious lesions in oropharynx. Cardiovascular: Tachycardic. Normal rhythm, no murmur, +S1/S2. Respiratory: Prolonged expiratory wheezing. No rales or crackles noted. Gastrointestinal: Soft, nontender, non-distended. No guarding or rebound tenderness. Extremities: Some ankle swelling. No pitting edema, no cyanosis, no clubbing. 2+ radial pulse bilaterally, 2+ posterior tibial pulse bilaterally. Neuro: Negative for Brudzinski's and Kernig's sign. No focal deficits observed. Conversant, moving all extremities. No overt cerebellar signs/incoordination. Psychiatric: Cooperative, appropriate affect. Results: Labs 04/03/25 12:28 04/03/25 12:28 Labs: Short CBC 04/03/25 Range/Units 12:28 WBC 10.6 (3.6-11.0) Thou/mm3 Hgb 9.7 L (12.0-16.0) g/dL Hct 29.2 L (36.0-46.0) % Plt Count 198 D (140-440) Thou/mm3 BMP 04/03/25 12:28 Sodium 139 Potassium 4.8 Chloride 106 Carbon Dioxide 25.7 BUN 28 H Creatinine 1.6 H Glucose 195 H Calcium 9.0 Cardiac Enzymes 04/03/25 Range/Units 12:28 Troponin I < 0.020 (0.0-0.045) ng/mL Liver Function 04/03/25 Range/Units 12:28 Total Bilirubin 0.2 L (0.3-1.2) mg/dL AST 23 (0-34) U/L ALT 14 (10-49) U/L Alkaline Phosphatase 68 (46-116) U/L Albumin 4.0 (3.4-4.8) gm/dL Urine 04/03/25 Range/Units 16:39 Urine Color Lt-Yellow (Lt Yel-Yel) Urine Clarity Clear (Clear/Hazy) Urine pH 5.0 (5.0-7.0) Ur Specific [place] 1.014 (1.001-1.035) Urine Protein 1+ A (Neg - Trace) Urine Glucose (UA) Negative (Negative) ABG Interpretation ABG results: 04/03/25 17:10 VBG pH 7.30 L VBG pCO2 52 VBG pO2 39 VBG Base Excess -1 Quality Measures Quality Measures none Medications Home Medications and Allergies Home Medications ?Medication ?Instructions ?Recorded ?Confirmed ?Type methadone 10 mg/5 mL oral solution 100 mg PO QDAY 01/2401/03/25 History nitroglycerin 0.4 mg sublingual 0.4 mg buccal Q5MIN IA N Chest Pain 02/07/24 01/03/25 History tablet apixaban 5 mg tablet (Eliquis) 5 mg PO Q12H 01/02/25 0 01/02/25 History insulin glargine 100 unit/mL (3 26 unit subcut QAM 07/2001/03/25 History mL) subcutaneous pen (Basaglar KwikPen U-100 Insulin) Allergies Allergy/AdvReac Type Severity Reaction Status Date / Time codeine Allergy Severe RASH Verified 03/21/25 22:27 diphenhydramine HCl Allergy Severe Hives Verified 03/21/25 22:27 egg Allergy Severe Rash Verified 03/21/25 22:27 Penicillins Allergy Severe SWELLING, Verified 03/21/25 22:27 RESP DISTRESS pentazocine (From Evaristo) Allergy Severe Hives Verified 03/21/25 22:27 Visit Medications Acetaminophen (Acetaminophen 325 Mg Tablet) 650 mg PO Q6H PRN PRN Reason: PAIN SCALE 1-3 (mild Stop: 05/03/25 20:13 Albuterol (Albuterol Inh 8 Gm) 2 puff INH Q4H KIP Stop: 05/03/25 20:14 Heparin Sodium (Porcine) (Heparin Sod Inj 5000 Unit/Ml Vial) 5,000 unit SC Q8HR KIP Stop: 04/17/25 21:59 Piperacillin/Tazobactam/Dextrose (Zosyn) 50 mls @ 100 mls/hr IV Q6HR KIP Stop: 04/10/25 20:23 Ondansetron HCl (Ondansetron Inj 2 Mg/Ml Inj 2 Ml) 4 mg IVP Q6H PRN; Protocol PRN Reason: NAUSEA OR VOMITING Stop: 05/03/25 20:13 Fluticasone/Salmeterol (Fluticasone/Salmeterol 250/50 14 Dose Inh) 1 puff INH BIDRT KIP Stop: 05/04/25 06:59 Sennosides (Senna Tablet) 1 tab PO QDAY PRN; Protocol PRN Reason: constipation Stop: 05/03/25 20:13 Sodium Chloride (Sodium Chloride Rt [place] 0.9% 3 Ml Nebu) 3 ml INH PRN PRN PRN Reason: SOLN Stop: 05/03/25 16:26 Last Admin: 04/03/25 16:45 Dose: 3 ml Discontinued Medications Acetaminophen (Acetaminophen 500 Mg Tablet) 1,000 mg PO X1 ONE Stop: 04/03/25 15:42 Last Admin: 04/03/25 15:48 Dose: 1,000 mg Albuterol (Albuterol Rt 2.5 Mg/0.5 Ml Nebu) 10 mg INH X1 ONE Stop: 04/03/25 16:28 Last Admin: 04/03/25 16:44 Dose: 10 mg Fentanyl Citrate (Fentanyl Cit Inj 50 Mcg/Ml Amp 2ml) 50 mcg IM X1 ONE Stop: 04/03/25 15:07 Last Admin: 04/03/25 15:18 Dose: 50 mcg Meropenem 1,000 mg/ Sodium (Chloride) 50 mls @ 100 mls/hr IV X1 ONE Stop: 04/03/25 16:34 Last Infusion: 04/03/25 18:12 Dose: Infused Sodium Chloride (Ns) 1,987 mls @ 1,987 mls/hr 30 ml/kg infuse over 60 min (1987 ml) IV .Q1H ONE; Protocol Stop: 04/03/25 17:34 Last Infusion: 04/03/25 19:15 Dose: Infused Methylprednisolone Sodium Succinate (Methylprednisolone Sod Succ 62.5 Mg/Ml 2ml Vial) 125 mg IVP X1 ONE Stop: 04/03/25 16:28 Last Admin: 04/03/25 17:31 Dose: 125 mg Assessment & Plan Assessment #UTI UA showed 4+ bacteria with positive nitrite and LE History of ESBL UTIs (most recently in December 2024) Fever present initially, but no elevation of WBC or costovertebral tenderness -Started IV Zosyn 3.375g q6H for treatment of UTI with coverage for ESBL- producing organisms -Follow up on urine culture to guide antibiotic regimen #COPD exacerbation #Possible bacterial community-acquired pneumonia Upon admission, patient's SpO2 was 95% on nasal cannula with O2 flow rate of 6 CXR showed mild pneumonia at the left base along with an increase in the number of subcentimeter pulmonary nodules since previous CXR in October 2024 Patient endorsed cough productive of green sputum for the last 3 days, along with itchy eyes and rhinorrhea -Started PO prednisone 40 mg intended for 5 days duration -Started azithromycin 500 mg intended for 3 days duration due to worsening green sputum production and signs of pneumonia on CXR -Breathing treatments and supplemental O2 as needed to maintain SpO2 between 88- 92% #Headache #Neck pain Working dx: cervicogenic headache Differential dx: bacterial or viral meningitis, migraine, tension headache Cervicogenic headache is supported by the localization of the pain to the posterior neck that radiates to the back of the head in the setting of unremarkable head CT and lack of positive Brudzinski's and Kernig's signs for meningitis Migraine is less likely due to lack of photophobia, pounding, nausea, or visual auras and tension headache is less likely due to pain localization not being a band around the head -Recommendation for outpatient physical therapy #Anemia CBC showed low RBC of 3.78, low Hgb of 9.7, and low MCV of 77, suggesting microcytic anemia -Ordered an iron panel for further workup of microcytic anemia (chronic) #Opioid withdrawal symptoms Patient has extensive history of heroin use and is on methadone at home -Restarted home medication of methadone 100 mg qD to treat opioid withdrawal symptoms #T2DM Upon admission, patient had a high blood glucose of 195 -Started insulin sliding scale for control of blood sugar levels #Hypertension -Restarted home medications of amlodipine, lisinopril, metoprolol, and metolazone Hospital Management: Disposition: undergoing workup and management of UTI, possible COPD exacerbation, and neck pain w/ headache Fluids: none Diet: cardiac w/ consistent carb low Lines: none DVT Prophylaxis: Eliquis 5 mg BID (home medication) Gama: not in place CODE STATUS: Full Code I have examined the patient and conferred with my attending, Dr. Mckeon, and my senior resident, Dr. Ng, regarding them. Jerrell Hanson DO PGY-1 Internal Medicine Attending Provider Attestation/Addendum Which has improved after examination of the patient and review of the clinical data I feel that this patient needs admission to the hospital for further treatment/evaluation. I have discussed and was present for the essential components of the history, physical examination, diagnosis, and treatment plan with the resident. I agree with the patient's care as documented by the resident and amended herein by me. Rudi Mckeon DO. Although this document has been carefully reviewed, there may still be some phonetic and other typographical errors. These errors are purely grammatical due to imperfections in the software program and should not be construed in any way to compromise the substance of the patient's medical care during this visit. Patient seen and evaluated in the ED. Patient is a 64-year-old female well- known to me with a significant past medical history of COPD on 2 to 3 L O2 at home, atrial fibrillation on Eliquis, hypertension, type 2 diabetes, [place] Subu cardiomyopathy, heroin abuse, CVA, viral meningitis, presented to the ED today for shortness of breath and headache with some chest discomfort which she described as chest pressure.. She also had complaints of neck pain which worsened with movement and radiated to a severe tension-like headache. Patient subsequently admitted for urinary tract infection, left base pneumonia possible COPD exacerbation. In the ED, patient was tachycardic with a pulse of 108, patient had a Tmax of 100.6, SpO2 initially 95% on 6 L however that did improve. Significant labs included hemoglobin of 9.7, normal sodium with potassium, creatinine slightly elevated 1.6 however I believe her baseline is 1.4. Urinalysis was positive and the patient did endorse urinary frequency. U tox was also positive for methamphetamines and fentanyl however she did get a dose of fentanyl in the ED. Patient firmly denies using meth. Chest x-ray was unremarkable, CT head was negative for any acute intracranial pathology and acute CVA. The patient was given a dose of Solu-Medrol and meropenem as well as approximately 2 L of NS in the ED. CTA chest also ordered which was negative for PE however did demonstrate multiple bilateral subcentimeter pulmonary nodules which have increased in number compared to October 2024, mild left base pneumonia primary hepatocellular disease. Patient admitted to [facility] telemetry for pneumonia, possible COPD exacerbation, UTI and possible substance abuse although the patient adamantly denies despite positive methamphetamines on U tox. For the patient's urinary tract infection, she was started on Zosyn for relatively recent history of ESBL E. coli in her urine in December 2024. Urine and blood cultures were ordered by the ED and are pending. For the patient's possible COPD, we started prednisone 40 mg daily, also considering the patient endorsed worsening green sputum production, will also add azithromycin. I did strenuously family counselor the patient on the necessity for cessation of any illicit substances although she adamantly denies doing any. Will also restart home meds as appropriate to include her methadone 100 mg daily and Eliquis 5 mg twice daily. Continue to monitor closely however the patient is stable and doing well
--- NOTE | 2025-04-03 21:07 | PC.NURSE ---
Called and spoke with Valentin to request admit unit order as well as pain medication as pt c/o neck pain.
--- NOTE | 2025-04-03 21:25 | XR_ITS ---
Examination: CTA chest with intravenous contrast 2-D reconstructions 3-D reconstructions, vascular Date and time of exam: April 03, 2025 1132 hours Comparison October 29, 2024 INDICATIONS: Chest pain and shortness of breath today CTDI: vol (mGy) 8.1 DLP: (mGycm) 307 Technique: Multiple axial sections of the thorax have been obtained. 3 mm slice thickness, from below the hemidiaphragms to above the apices of the lungs. Mediastinal and lung density settings have been obtained. 2-D sagittal and coronal reconstructions. 3-D angiographic renderings, 3-D volume renderings, 3D post processing, vascular maximum intensity projections obtained. Contrast administered is 60 cc Isovue 300. Low dose protocols were performed. One or more of the following dose reduction techniques were used; automated exposure control, adjustment of the mA and/or KV according to patient size, use of iterative reconstruction technique. Findings: No thoracic aortic aneurysmal dilatation or dissection No pulmonary artery filling defects No paratracheal tracheobronchial or bronchopulmonary adenopathy Multiple bilateral pulmonary nodules, the largest in the right lower lobe 8 mm, axial image 178 Mild pneumonia left base No pulmonary edema Stable subcentimeter para-aortic lymphadenopathy Liver is irregular in contour, and tiny gallstones No hydronephrosis 23 mm hypodense mass again noted in the body tail of the pancreas Moderate osteopenia IMPRESSION: Negative for pulmonary artery emboli Multiple bilateral subcentimeter pulmonary nodules as above,, which have increased in number compared to the CT chest October 29, 2024, suggest continued 3-6 month follow-up CT chest without contrast Primary hepatocellular disease Recommend MRI abdomen pre and post contrast follow-up to assess the pancreatic mass
[2025-04-03] MEDS: ALBUTEROL INH 8 GM 2 PUFF INH (21:30)
[2025-04-03] MEDS: HEPARIN SOD INJ 5000 UNIT/ML VIAL SC (21:39)
[2025-04-04] VITALS (18 sets, daily range): BP systolic 103–128; BP diastolic 53–71; PULSE 62–97; RESP 15–18; TEMP 36.2–37.1; O2SAT 93–98
--- NOTE | 2025-04-04 00:22 | PC.NURSE ---
called Dr. Ng regarding patient c/o pain in her neck 06/05, per Dr. Ng will review patient's chart and add medication. Pharmacy called regarding ordered zosyn as patient has allergies to penicillin, per doctor still wants zosyn to be ordred.
[2025-04-04] MEDS: LIDOCAINE 5% 1 PATCH TOP (00:52)
[2025-04-04] MEDS: PIPER/TAZO 3.375 GM PREMIX 3.375 GM/50 ML BAG IV ×5 (00:53→23:57)
[2025-04-04] MEDS: ALBUTEROL INH 8 GM 2 PUFF INH ×6 (01:10→21:55)
[2025-04-04 06:00] LABS: Basophils # (Auto) 0.0 Thou/mm3 (0.0-0.2); Basophils % (Auto) 0 % (0-2.5); Eosinophils # (Auto) 0.0 Thou/mm3 (0.0-0.5); Eosinophils % (Auto) 0 % (0-10); Hematocrit 26.1 % (36.0-46.0); Immature Granulocytes Auto 0.19 Thou/mm3 (0.00-0.00); Immature Reticulocyte Fraction 7.3 % (3.0-15.9); Lymphocytes # (Auto) 0.8 Thou/mm3 (1.0-4.8); Lymphocytes % (Auto) 4 % (10-50); Mean Corpuscular HGB Conc 33.3 g/dl (31.0-37.0); Mean Corpuscular Hemoglobin 25.9 pg (25.0-35.0); Mean Corpuscular Volume 78 fL (80-100); Monocytes # (Auto) 0.2 Thou/mm3 (0.0-0.8); Monocytes % (Auto) 1 % (0-12); Neutrophils # (Auto) 18.3 Thou/mm3 (1.8-7.7); Neutrophils % (Auto) 94 % (37-80); Nucleated Red Blood Cell # 0.00 Thou/mm3 (0.00-0.00); Nucleated Red Blood Cell % 0 /100 WBC (0); Platelet Count 208 Thou/mm3 (140-440); RDW Standard Deviation 39.0 fL (36.4-46.3); Red Blood Count 3.36 Miln/mm3 (4.00-5.20); Reticulocyte % (Auto) 1.2 % (0.5-1.5); Reticulocyte Absolute Auto 39.6 Biln/L (25.0-75.0); Reticulocyte Hgb Content 28.9 pg (28.0-35.0); White Blood Count 19.5 Thou/mm3 (3.6-11.0)
[2025-04-04 06:03] LABS: Hemoglobin 8.7 g/dL (12.0-16.0)
[2025-04-04 06:28] LABS: Ferritin 17 ng/mL (7.3-270.7); Iron 15 mcg/dL (50-170); Percent Iron Saturation 4 % (20-55); Total Iron Binding Capacity 340 mcg/dL (250-425); Unsaturated Iron Binding 325 (225-295)
[2025-04-04 06:30] LABS: Alanine Aminotransferase 11 U/L (10-49); Albumin, Serum 3.6 gm/dL (3.4-4.8); Albumin/Globulin Ratio 1.5 (1.2-2.2); Alkaline Phosphatase 57 U/L (46-116); Anion Gap 10 (7-16); Aspartate Amino Transferase 16 U/L (0-34); BUN/Creatinine Ratio 19 Ratio (12-20); Bilirubin,Total 0.4 mg/dL (0.3-1.2); Blood Urea Nitrogen 30 mg/dL (9-23); Calcium 8.9 mg/dL (8.3-10.6); Calcium (Corrected) 9.2 mg/dL (8.5-10.1); Carbon Dioxide 22.8 mMol/L (20.0-31.0); Chloride 106 mMol/L (98-107); Creatinine (Component) 1.6 mg/dL (0.6-1.3); Estimated Creatinine Clearance 36.6 mL/min (>60); Globulin 2.4 gm/dL (2.3-3.5); Glucose 329 mg/dL (74-106); Magnesium 2.1 mg/dL (1.6-2.6); Osmolality,Calculated 296 (275-295); Phosphorous 2.4 mg/dL (2.4-5.1); Potassium 4.6 mMol/L (3.4-5.1); Sodium 139 mMol/L (136-145); Total Protein 6.0 gm/dL (5.7-8.2); eGFR 36 See Note
[2025-04-04] MEDS: INSULIN LISPRO (AdmeLOG) 1 UNIT/0.01 ML UNIT SC ×4 (07:59→21:17)
[2025-04-04] MEDS: AZITHROMYCIN 250 MG TABLET 500 MG PO (08:00)
[2025-04-04] MEDS: METOPROLOL SUCCINATE XL 25 MG TABCR PO (08:00)
[2025-04-04] MEDS: APIXABAN 2.5 MG TABLET 5 MG PO ×2 (08:02→21:17)
[2025-04-04] MEDS: METHADONE SOLUTION 5 MG/5 ML UDC 100 MG PO (08:02)
[2025-04-04] MEDS: ASPIRIN EC 81 MG TABEC PO (08:02)
[2025-04-04] MEDS: INSULIN HUM REGULAR 1 UNIT/0.01 ML (PER UNIT) 5 UNIT SC (08:11)
[2025-04-04 08:36] LABS: Glucose Estimated Average 137 mg/dL (80-131); Hemoglobin A1C 6.4 % Hgb (4.8-6.0)
--- NOTE | 2025-04-04 08:39 | PD.RESPRO ---
Documentation for date of: 04/04/25 Patient is a 64-year-old female who was admitted overnight for acute on chronic COPD exacerbation who was tachypneic on presentation. Patient x-ray appears as a COPD emphysema patient. CTA chest negative for PE patient was started on breathing treatments. Prednisone 40 mg p.o. daily. Pending blood cultures negative after 24 hours. Pending urine cultures currently GNR preliminary studies. Subjective Subjective Interval history: Patient was evaluated at bedside today. Patient endorsed improved shortness of breath. Currently on 2L oxygen satting 95 FiO2. Patient was seen coughing up green phlegm. Wheezing was noted on examination. Patient endorsed improvement in headache localized to the occipital region. Patient did not demonstrate any focal neurological signs upon examination. Patient endorsed dysuria and urinary urgency. Denied flank pain and no CVA tenderness was noted on examination. Patient denied N/V/D. Exam Vital Signs Temp Pulse Resp BP Pulse Ox O2 Del Method O2 Flow Rate 98.8 F 85 16 117/71 95 Nasal Cannula 2 04/04/25 07:50 04/04/25 08:02 04/04/25 07:50 04/04/25 08:02 04/04/25 07:50 04/04/25 04:00 04/04/25 07:46 Narrative Exam General Appearance: Alert & Oriented X3, well-nourished female who is lying in bed in mild respiratory distress. HEENT: Skull symmetrical and atraumatic. Conjunctivae pink and moist. Pupils equal, round, reactive to light and accommodation (PERRL). External ear without lesion or discharge. Straight, nares patient, mucosa pink, no discharge. No thyroid nodule appreciated. No cervical lymphadenopathy. Cardio: Normal Rate and Rhythm with S1 and S2 heart sounds. No murmurs or extra heart sounds auscultated. No bruits on carotid auscultation. No peripheral edema or cyanosis. Lungs: Symmetric with good expansion. Chest and back non-tender. Breath sounds vesicular with wheezing. Abdomen: Non-tender, Non-distended, Normal Reactive Bowel Sounds Neuro: Alert, cooperative, oriented to person, place, and time. Speech clear. CN grossly intact. Upper motor strength 5/5 and Lower motor strength 5/5. Sensation intact. Objective Labs 04/06/25 04:51 04/06/25 04:51 Labs: Laboratory Results - last 24 hr 04/03/25 04/03/25 04/03/25 12:28 15:00 16:39 WBC 10.6 RBC 3.78 L Hgb 9.7 L Hct 29.2 L MCV 77 L MCH 25.7 MCHC 33.2 RDW Std Deviation 38.2 Plt Count 198 D Neut % (Auto) 74 Lymph % (Auto) 16 [place] % (Auto) 7 Eos % (Auto) 2 Baso % (Auto) 0 Neut # (Auto) 7.9 H Lymph # (Auto) 1.7 [place] # (Auto) 0.8 Eos # (Auto) 0.2 Baso # (Auto) 0.0 Immature Gran # (Auto) 0.05 H Absolute Nucleated RBC 0.00 Immature Gran % 1 H Nucleated RBC % 0 Retic Count (auto) Absolute Retic Immature Retic Fraction Retic Hgb Content CHr APTT VBG pH VBG pCO2 VBG pO2 VBG O2 Sat ([place]) VBG Base Excess Sodium 139 Potassium 4.8 Chloride 106 Carbon Dioxide 25.7 Anion Gap 7 BUN 28 H Creatinine 1.6 H Estim Creat Clear Calc 32.4 L eGFR 36 L BUN/Creatinine Ratio [address] Glu mg/dL Hemoglobin A1c Calculated Osmolality 288 Lactic Acid 1.2 Calcium 9.0 Corrected Calcium 9.0 Phosphorus Magnesium 2.2 Iron TIBC Iron Saturation Unsat Iron Binding Ferritin Total Bilirubin 0.2 L AST 23 ALT 14 Alkaline Phosphatase 68 Troponin I < 0.020 B-Natriuretic Peptide 26 Total Protein 6.6 Albumin 4.0 Globulin 2.6 Albumin/Globulin Ratio 1.5 Lipase 36 Procalcitonin Ur Collection Type Clean Catch Urine Color Lt-Yellow Urine Clarity Clear Urine pH 5.0 Ur Specific [place] 1.014 Urine Protein 1+ A Urine Glucose (UA) Negative Urine Ketones Negative Urine Blood 2+ A Urine Nitrite Positive Urine Bilirubin Negative Urine Urobilinogen (Auto) Negative Ur Leukocyte Esterase Positive Urine RBC 25 H Urine WBC 6 H Ur Squamous Epith Cells 1 Urine Bacteria 4+ A Hyaline Casts < 1 Ur Culture Indicated? Yes Urine Opiates Screen Negative Urine Fentanyl Screen Positive A Ur Barbiturates Screen Negative U Amphetamin/Meth Scrn Positive A U Benzodiazepines Scrn Negative U Cocaine Metab Screen Negative U Marijuana (THC) Screen Positive A RSV Rapid Negative Group A Strep Rapid Negative 07/06/2004/03/25 04/04/25 17:10 17:19 05:28 WBC 19.5 H D RBC 3.36 L Hgb 8.7 L Hct 26.1 L MCV 78 L MCH 25.9 MCHC 33.3 RDW Std Deviation 39.0 Plt Count 208 Neut % (Auto) 94 H Lymph % (Auto) 4 L [place] % (Auto) 1 Eos % (Auto) 0 Baso % (Auto) 0 Neut # (Auto) 18.3 H Lymph # (Auto) 0.8 L [place] # (Auto) 0.2 Eos # (Auto) 0.0 Baso # (Auto) 0.0 Immature Gran # (Auto) 0.19 H Absolute Nucleated RBC 0.00 Immature Gran % 1 H Nucleated RBC % 0 Retic Count (auto) 1.2 Absolute Retic 39.6 Immature Retic Fraction 7.3 Retic Hgb Content CHr 28.9 APTT 25.9 VBG pH 7.30 L VBG pCO2 52 VBG pO2 39 VBG O2 Sat ([place]) 73 L VBG Base Excess -1 Sodium 139 Potassium 4.6 Chloride 106 Carbon Dioxide 22.8 Anion Gap 10 BUN 30 H Creatinine 1.6 H Estim Creat Clear Calc 36.6 L eGFR 36 L BUN/Creatinine Ratio 19 [address]ucose [address] Glu mg/dL 137 H Hemoglobin A1c 6.4 H Calculated Osmolality 296 H Lactic Acid Calcium 8.9 Corrected Calcium 9.2 Phosphorus 2.4 Magnesium 2.1 Iron 15 L TIBC 340 Iron Saturation 4 L Unsat Iron Binding 325 H Ferritin 17 Total Bilirubin 0.4 AST 16 ALT 11 Alkaline Phosphatase 57 Troponin I B-Natriuretic Peptide Total Protein 6.0 Albumin 3.6 Globulin 2.4 Albumin/Globulin Ratio 1.5 Lipase Procalcitonin 0.13 Ur Collection Type Urine Color Urine Clarity Urine pH Ur Specific [place] Urine Protein Urine Glucose (UA) Urine Ketones Urine Blood Urine Nitrite Urine Bilirubin Urine Urobilinogen (Auto) Ur Leukocyte Esterase Urine RBC Urine WBC Ur Squamous Epith Cells Urine Bacteria Hyaline Casts Ur Culture Indicated? Urine Opiates Screen Urine Fentanyl Screen Ur Barbiturates Screen U Amphetamin/Meth Scrn U Benzodiazepines Scrn U Cocaine Metab Screen U Marijuana (THC) Screen RSV Rapid Group A Strep Rapid ABG Interpretation ABG results: 04/03/25 17:10 VBG pH 7.30 L VBG pCO2 52 VBG pO2 39 VBG Base Excess -1 Quality Measures Quality Measures VTE prophylaxis (Eliquis 5 mg PO Q12H) Assessment & Plan Assessment Current Active Medications: Generic Name Dose Route Start Last Admin Trade Name Lisa PRN Reason Stop Dose Admin Acetaminophen 650 mg 04/03/25 20:14 Acetaminophen 325 Mg Tablet PO 05/03/25 20:13 Q6H PRN PAIN SCALE 1-3 (mild Albuterol 2 puff 04/03/25 20:15 04/04/25 07:46 Albuterol Inh 8 Gm INH 05/03/25 20:14 2 puff Q4H KIP Administration Amlodipine Besylate 5 mg 04/04/25 09:00 04/04/25 08:01 Amlodipine Besylate 5 Mg Tablet PO 05/04/25 08:59 5 mg BID KIP Administration Apixaban 5 mg 04/04/25 09:00 04/04/25 08:02 Apixaban 2.5 Mg Tablet PO 04/25/25 08:59 5 mg BID KIP Administration Aspirin 81 mg 04/04/25 09:00 04/04/25 08:02 Aspirin Ec 81 Mg Tabec PO 05/04/25 08:59 81 mg QDAY KIP Administration Azithromycin 500 mg 04/04/25 09:00 04/04/25 08:00 Azithromycin 250 Mg Tablet PO 04/11/25 08:59 500 mg QDAY KIP Administration Buspirone HCl 5 mg 04/04/25 09:00 04/04/25 08:01 Buspirone Hcl 5 Mg Tablet PO 05/04/25 08:59 5 mg QDAY KIP Administration Dextrose 25 ml 04/03/25 21:02 Dextrose 50%-Water Inj 50 Ml Syringe IV 05/03/25 21:01 Q15MIN PRN BG 50-70 responsive npo pt Dextrose 50 ml 04/03/25 21:02 Dextrose 50%-Water Inj 50 Ml Syringe IV 05/03/25 21:01 Q15MIN PRN BG <50 OR BG <70 & pt unresponsive Glucagon 1 mg 04/03/25 21:02 Glucagon Inj 1 Mg Vial IM Q15MIN PRN BG <70, and no IV access Piperacillin/Tazobactam/Dextrose 3.375 gm in 50 mls @ 100 mls/hr 04/03/25 20:24 04/04/25 05:31 Zosyn IV 04/10/25 20:23 100 mls/hr Q6HR KIP Administration Insulin Glargine 10 unit 04/04/25 21:00 Insulin Glargine (Lantus) 5 Unit/0.05 Ml (Per 5 Units) SC 05/04/25 20:59 HS KIP Insulin Human Lispro 0 unit 04/04/25 07:30 04/04/25 07:59 Insulin Lispro (Admelog) 1 Unit/0.01 Ml Unit SC 05/04/25 07:29 3 unit ACHS KIP Administration Protocol Lisinopril 40 mg 04/04/25 09:00 04/04/25 08:02 Lisinopril 20 Mg Tablet PO 05/04/25 08:59 40 mg QDAY KIP Administration Methadone HCl 100 mg 04/04/25 09:00 04/04/25 08:02 Methadone Solution 5 Mg/5 Ml Udc PO 04/09/25 08:59 100 mg QDAY KIP Administration Metolazone 5 mg 04/04/25 09:00 Metolazone 2.5 Mg Tablet PO 05/04/25 08:59 QDAY KIP Metoprolol Succinate 25 mg 04/04/25 09:00 04/04/25 08:00 Metoprolol Succinate Xl 25 Mg Tabcr PO 05/04/25 08:59 25 mg QDAY KIP Administration Ondansetron HCl 4 mg 04/03/25 20:14 Ondansetron Inj 2 Mg/Ml Inj 2 Ml IVP 05/03/25 20:13 Q6H PRN NAUSEA OR VOMITING Protocol Prednisone 40 mg 04/04/25 09:00 04/04/25 08:01 Prednisone 20 Mg Tablet PO 04/09/25 08:59 40 mg QDAY KIP Administration Fluticasone/Salmeterol 1 puff 04/04/25 07:00 Fluticasone/Salmeterol 250/50 14 Dose Inh INH 05/04/25 06:59 BIDRT KIP Sennosides 1 tab 04/03/25 20:14 Senna Tablet PO 05/03/25 20:13 QDAY PRN constipation Protocol Sodium Chloride 3 ml 04/03/25 16:27 04/03/25 16:45 Sodium Chloride Rt [place] 0.9% 3 Ml Nebu INH 05/03/25 16:26 3 ml PRN PRN Administration SOLN Plan Christina Diaz is a 64-year-old F with a PMH of ESBL UTI, COPD on 2-3 L at home, CHF, atrial fibrillation on Eliquis, Takotsubo's cardiomyopathy, substance use disorder (heroin and methamphetamine), type 2 diabetes, HTN, viral meningitis, and stroke who was admitted with acute on chronic COPD exacerbation and UTI, previous history of ESBL. #Acute on chronic COPD exacerbation #Possible bacterial community-acquired pneumonia Upon admission, patient's SpO2 was 95% on nasal cannula with O2 flow rate of 6 -----> 7/10 titrated down to 2L O2 SpO2 95% FiO2 21 CXR showed mild pneumonia at the left base Patient endorsed cough productive of green sputum for the last 3 days, along with itchy eyes and rhinorrhea -Started PO prednisone 40 mg intended for 5 days duration -Started azithromycin 500 mg intended for 3 days duration due to worsening green sputum production and signs of pneumonia on CXR -Breathing treatments and supplemental O2 as needed to maintain SpO2 between 88-92% #UTI UA showed 4+ bacteria with positive nitrite and LE History of ESBL UTIs (most recently in December 2024) Fever present initially spiking at 100.6, but no elevation of WBC initially --------> WBC 19.5 -Started IV Zosyn 3.375g q6H for treatment of UTI with coverage for ESBL-producing organisms -Urine culture pending #Atrial Fibrillation #Atrial Fibrillation w/RVR, Resolved Patient has a history of Afib w/RVR 04/03 EKG demonstrated sinus rhythm with possible old inferior infarct Plan: Continue metoprolol 25 mg PO QD and eliquis 5 mg PO Q12H HOLD Metoprolol if COPD exacerbation worsens. #Headache #Neck pain Working dx: cervicogenic headache Differential dx: bacterial or viral meningitis, migraine, tension headache Cervicogenic headache is supported by the localization of the pain to the posterior neck that radiates to the back of the head in the setting of unremarkable head CT and lack of positive Brudzinski's and Kernig's signs for meningitis Migraine is less likely due to lack of photophobia, pounding, nausea, or visual auras and tension headache is less likely due to pain localization not being a band around the head -Recommendation for outpatient physical therapy #Chronic Kidney Disease, Stage IIIB GFR 12/2024 51 02/2025 36 03/2025 36 Creatinine steady between 1.4-1.6 since 12/2024 Renal US 12/2024 right kidney 11.8 cm renal cortex 1.1 left kidney 11.3 renal cortex 1.1; bilateral renal cortical thinning Renal Artery US 12/2024 no renal artery stenosis Plan: Avoid nephrotoxins and renally dose medication Continue to monitor serum chemistry and renal panel #Iron Deficiency Anemia Patient complained of dark stools in the past. CBC showed low RBC of 3.78, low Hgb of 9.7, and low MCV of 77 04/04 RBC 3.36 MCV 17 Hgb 8.7 Hct 26.1 04/04 Fe Panel: Iron 15 TIBC 340 Iron Sat 4 Plan: Recommend outpatient colonoscopy Resume Fe supplementation as outpatient Repeat iron panel 4-6 weeks #T2DM, insulin dependent Upon admission, patient had a high blood glucose of 195. Home medication of Glargine 26 units HS. 04/04 glucose 329 w/ A1c of 6.4% Plan: Continue insulin sliding scale for control of blood sugar levels Started Lantus 10 unit SC HS #Hypertension Upon presentation to the ED, patient's BP was 176/93 Plan: Continue home medications of amlodipine, lisinopril and metolazone #Gastritis #Esophagitis Patient endorsed dark stools in the past. EGD 12/2024 Dr. Ludwig demonstrated esophagitis accompanied by white plaques and gastric mucosa with erythema. Plan: Diet advance as tolerated Monitor for possible outpatient colonoscopy #Opioid withdrawal symptoms Patient has extensive history of heroin use and is on methadone at home Plan: Continue home medication of methadone 100 mg qD to treat opioid withdrawal symptoms #Incidental Pulmonary Nodules 04/03 CT chest revealed bilateral subcentimeter pulmonary nodules that have grown in number compared to 10/2024 CT chest Plan: Recommend 3-6 month follow up Chest CT without contrast #Incidental Pancreatic Mass 04/[address] 23 mm hypoechoic mass in tail of pancreas Plan: Recommended MRI with and without to assess Hospital Management: Disposition: undergoing workup and management of UTI, possible COPD exacerbation, and neck pain w/ headache Fluids: none Diet: cardiac w/ consistent carb low Lines: none DVT Prophylaxis: Eliquis 5 mg BID (home medication) Gama: not in place CODE STATUS: Full Code Case reviewed with attending Dr. Butterfield and senior resident Dr. Puga. Xiao Hogan MS-4 - The patient's plan was discussed with attending Dr. Scout Puga MD PGY2 Internal Medicine Attending Provider Attestation/Addendum 64-year-old female with multiple comorbidities including hypertension, hyperlipidemia, type 2 diabetes mellitus, COPD on 2-3 L supplemental oxygen at home, atrial fibrillation on Eliquis polysubstance use who presented to the ER with shortness of breath found to have a Toxic respiratory failure secondary to COPD exacerbation requiring increasing oxygen requirement. In addition, patient also noted to have THEO on CKD which we will continue to monitor closely.I reviewed above note and agree with findings and plans. I have also personally examined the patient with medicine team and went over assessment and plan with medical team including healthcare administration internship and resident physician.
[2025-04-04] MEDS: ONDANSETRON INJ 2 MG/ML INJ 2 ML 4 MG IVP (11:33)
--- NOTE | 2025-04-04 14:54 | PC.SS ---
SS spoke to Mohsen the supervisor solder making from [employer] [facility] who explained pt has O2 concentrator at home and small O2 tank and they will go out to patient's home to provide more O2 tanks. Pt was previously with [facility] and now has been switched to [facility], phone# [phone]. Pt is aware and will follow up with them. SS provided pt with [employer] with [employer]'s phone#.
--- NOTE | 2025-04-04 15:32 | PC.SS ---
SS met with patient regarding her d/c plan. Pt is alert/oriented. Pt was admitted for UTI + COPD Exacerbation. Pt confirmed contact information is correct [place] facesheet[place] [address] SS has contacted patient registration to make correct to patient's facesheet. Pt resides with friend. Pt ambulates independently without assistance or DME. Pt is ok with all ADLs. Pt utilizes home O2 at home from [facility]. Pt named her dtr, Mary Anne Diaz or son, Patria Diaz medical decision makers if she is unable. Patient?s choice is to return home upon d/c. Pt followed up with PCP 3 weeks ago and her next appointment is at the end of March. Pt states her friend will provide transport. D/C plan: Return home Next of Kin: Mary Anne Diaz, dtr, phone# [phone] or Patria Diaz, son, phone# [phone] PCP: [facility] Address: Correct on facesheet
[2025-04-04] MEDS: ACETAMINOPHEN 325 MG TABLET 650 MG PO (15:57)
--- NOTE | 2025-04-04 16:50 | PC.PT ---
Patient is safe to ambulate to the bathroom and in her room with O2, a FWW, and 1 staff assist. RN made aware.
[2025-04-04] MEDS: FLUTICASONE/SALMETEROL 250/50 14 DOSE INH 1 PUFF INH (19:42)
[2025-04-04] MEDS: INSULIN GLARGINE (Lantus) 5 UNIT/0.05 ML (PER 5 UNITS) 10 UNIT SC (21:16)
[2025-04-05] VITALS (20 sets, daily range): BP systolic 118–159; BP diastolic 60–85; PULSE 53–88; RESP 14–22; TEMP 36.2–37; O2SAT 93–100
--- NOTE | 2025-04-05 02:01 | PC.NURSE ---
notified Dr. Hanson regarding patient's Heart rate went down to 47, patient is asymptomatic, resting comfortably in bed. Patient's heart rate currently in the 50s SR. No new orders received.
[2025-04-05] MEDS: ALBUTEROL INH 8 GM 2 PUFF INH ×6 (03:32→22:51)
[2025-04-05] MEDS: PIPER/TAZO 3.375 GM PREMIX 3.375 GM/50 ML BAG IV ×3 (05:30→17:00)
--- NOTE | 2025-04-05 05:52 | PC.NURSE ---
called Dr. Hanson regarding patient having a cough, requesting cough syrup. New orders received.
[2025-04-05 06:08] LABS: Basophils # (Auto) 0.0 Thou/mm3 (0.0-0.2); Basophils % (Auto) 0 % (0-2.5); Eosinophils # (Auto) 0.0 Thou/mm3 (0.0-0.5); Eosinophils % (Auto) 0 % (0-10); Hematocrit 25.1 % (36.0-46.0); Immature Granulocytes Auto 0.24 Thou/mm3 (0.00-0.00); Lymphocytes # (Auto) 2.3 Thou/mm3 (1.0-4.8); Lymphocytes % (Auto) 12 % (10-50); Mean Corpuscular HGB Conc 33.1 g/dl (31.0-37.0); Mean Corpuscular Hemoglobin 26.0 pg (25.0-35.0); Mean Corpuscular Volume 79 fL (80-100); Monocytes # (Auto) 1.2 Thou/mm3 (0.0-0.8); Monocytes % (Auto) 6 % (0-12); Neutrophils # (Auto) 15.7 Thou/mm3 (1.8-7.7); Neutrophils % (Auto) 81 % (37-80); Nucleated Red Blood Cell # 0.00 Thou/mm3 (0.00-0.00); Nucleated Red Blood Cell % 0 /100 WBC (0); Platelet Count 179 Thou/mm3 (140-440); RDW Standard Deviation 39.5 fL (36.4-46.3); Red Blood Count 3.19 Miln/mm3 (4.00-5.20); White Blood Count 19.5 Thou/mm3 (3.6-11.0)
[2025-04-05] MEDS: guaiFENesin SYRUP 200 MG/10 ML UDC 100 MG PO (06:10)
[2025-04-05 06:11] LABS: Hemoglobin 8.3 g/dL (12.0-16.0)
[2025-04-05] MEDS: FLUTICASONE/SALMETEROL 250/50 14 DOSE INH 1 PUFF INH ×2 (06:28→18:45)
[2025-04-05 06:36] LABS: Alanine Aminotransferase 12 U/L (10-49); Albumin, Serum 3.4 gm/dL (3.4-4.8); Albumin/Globulin Ratio 1.7 (1.2-2.2); Alkaline Phosphatase 46 U/L (46-116); Anion Gap 10 (7-16); Aspartate Amino Transferase 21 U/L (0-34); BUN/Creatinine Ratio 34 Ratio (12-20); Bilirubin,Total < 0.2 mg/dL (0.3-1.2); Blood Urea Nitrogen 64 mg/dL (9-23); Calcium 8.3 mg/dL (8.3-10.6); Calcium (Corrected) 8.8 mg/dL (8.5-10.1); Carbon Dioxide 22.9 mMol/L (20.0-31.0); Chloride 106 mMol/L (98-107); Creatinine (Component) 1.9 mg/dL (0.6-1.3); Estimated Creatinine Clearance 30.8 mL/min (>60); Globulin 2.0 gm/dL (2.3-3.5); Glucose 140 mg/dL (74-106); Magnesium 2.2 mg/dL (1.6-2.6); Osmolality,Calculated 297 (275-295); Phosphorous 4.5 mg/dL (2.4-5.1); Potassium 5.3 mMol/L (3.4-5.1); Sodium 139 mMol/L (136-145); Total Protein 5.4 gm/dL (5.7-8.2); eGFR 29 See Note
[2025-04-05] MEDS: INSULIN LISPRO (AdmeLOG) 1 UNIT/0.01 ML UNIT SC ×4 (07:29→21:19)
--- NOTE | 2025-04-05 08:57 | PD.RESCONSUL ---
HPI Data of Consult Consult date: 04/05/25 Requesting Physician: Ashok Butterfield MD Admitting Provider: Tomasz Mckeon DO Attending Provider: Ashok Butterfield MD Primary Care Provider: Apolinar Tai MD Consult Narrative Reason for consult: THEO History of present illness: Christina Diaz is a 64-year-old F with a PMH of ESBL UTI, COPD on 2-3 L at home, CHF, atrial fibrillation on Eliquis, Takotsubo's cardiomyopathy, substance use disorder (heroin and methamphetamine), type 2 diabetes, HTN, viral meningitis, and stroke who was admitted for acute on chronic COPD exacerbation and UTI (hx of ESBL). Patient initially came in with shortness of breath w/ chest pain and a headache around her ear and neck. States the chest pain and shortness of breath have been a chronic problem for her, described as pressured. Stated that she had to use her albuterol inhaler up to 5 times per day recently due to worsening shortness of breath. She also had worsening headache with neck pain that started to worsen since the previous night. Patient was admitted for the work-up and management of complicated UTI, COPD exacerbation, and neck pain/headache. Today patient was consulted to nephrology for THEO due to contrast. Patient had Chest CTA 04/03, with increasing creatinine and BUN since then. Patient was seen and examined at bedside. Patient endorsed nausea and vomiting earlier this morning, some on and off pressured chest discomfort which is not occurring now, states her headache is feeling much better. Patient endorsed mild lower back pain that occurred last night that radiates around the flank, does not have that pain now. States her shortness of breath is doing better as well. Patient denies fever, palpitations, abdominal pain. Urine output last 24hrs is 1100 ml pure wick. Notable labs include WBC 19.5, Hgb 8.3, K 3.5, BUN 64 (30), Cr 1.9 (1.6). cc:: cc: Ashok Butterfield MD Review of Systems Review of Systems Narrative Review of Systems: General: Denies fever, chills or rashes HEENT: Denies rhinorrhea, ocular pruritus. Denies congestion or sore throat Heart: Endorses chest pain. Denies palpitations Lungs: Endorses SOB and cough producing green sputum. Endorses wheezing. Abdomen: Endorses constipation. Denies abdominal pain, nausea, vomiting, diarrhea, or blood in stool Genitourinary: Denies urinary urgency, dysuria, or hematuria Neurology: Denies any changes in vision, weakness or difficulty speaking Extremities: Endorsed some nerve pain in R thigh. Denies swelling of extremities Past Medical History Past Medical History NEUROLOGIC: Positive Neurological Disorders, Cerebrovascular Accident and Meningitis CARDIAC: Positive Cardiac Disorders, Myocardial Infarction, Cardiac Arrhythmia, Atrial Fibrillation, Angina, Coronary Artery Disease, Atherosclerotic Heart Disease, Hypercholesterolemia, Congestive Heart Failure, Cardiomyopathy (Takotsubo's cardiomyopathy), Edema and Hypertension RESPIRATORY: Positive Respiratory Disorders, Chronic Obstructive Pulmonary Disease (COPD), Asthma, Bronchitis, Emphysema, Pneumonia and Smoking (Smoked from age [age] (1 pack/day), currently does not smoke) MUSCULOSKELETAL: Positive Musculoskeletal Disorders, Arthritis and Osteoporosis ENT: Positive Cataracts and Blind ENDOCRINE: Positive Endocrine Disorders and Diabetes Mellitus Type 2 HEMATOLOGIC: Positive Anemia PSYCHO/SOCIAL: Positive Recreational Drug Use, Depression and Anxiety OTHER HISTORY: Positive Hospitalization, Shingles and Falls Family History FAMILY HISTORY: Positive Family Cardiac Disorders Surgical History SURGICAL: Positive Eye Surgery, Tonsillectomy, Abdominal Surgery (oophorectomy for polycystic ovary during grade school years) and Bowel Surgery (appendectomy) Social History SOCIAL: Of note, patient denied recent use of any recreational drugs but Utox was positive for methamphetamine and marijuana (also positive for fentanyl but she received it in the ED). 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 HEENT: NC/AT, Sclera non-icteric, hearing intact, nasal mucosa pink and moist, oral mucosa pink/moist with good dentition, no exudates noted. Cardio: RRR, no murmurs Lungs: Bilateral mild wheezing Abdomen: Non-tender, Non-distended, Bowel Sounds heard Neuro: Alert, cooperative, no focal neuro deficits noted Psych: appropriate mood and affect Results Labs 04/05/25 05:20 04/05/25 11:55 Labs: Short CBC 04/05/25 Range/Units 05:20 WBC 19.5 H (3.6-11.0) Thou/mm3 Hgb 8.3 L (12.0-16.0) g/dL Hct 25.1 L (36.0-46.0) % Plt Count 179 (140-440) Thou/mm3 BMP 04/05/25 05:20 Sodium 139 Potassium 5.3 H D Chloride 106 Carbon Dioxide 22.9 BUN 64 H Creatinine 1.9 H Glucose 140 H D Calcium 8.3 Liver Function 04/05/25 Range/Units 05:20 Total Bilirubin < 0.2 L (0.3-1.2) mg/dL AST 21 (0-34) U/L ALT 12 (10-49) U/L Alkaline Phosphatase 46 (46-116) U/L Albumin 3.4 (3.4-4.8) gm/dL ABG Interpretation ABG results: 04/03/25 17:10 VBG pH 7.30 L VBG pCO2 52 VBG pO2 39 VBG Base Excess -1 Quality Measures Quality Measures VTE prophylaxis (Eliquis 5 mg PO Q12H) Medications Home Medications and Allergies Home Medications ?Medication ?Instructions ?Recorded ?Confirmed ?Type methadone 10 mg/5 mL oral solution 100 mg PO QDAY 02/07/24 04/04/25 History nitroglycerin 0.4 mg sublingual 0.4 mg buccal Q5MIN PRN Chest Pain 02/07/24 04/04/25 History tablet apixaban 5 mg tablet (Eliquis) 5 mg PO Q12H 01/02/25 04/04/25 History insulin glargine 100 unit/mL (3 26 unit subcut QAM 01/03/25 04/04/25 History mL) subcutaneous pen (Basaglar KwikPen U-100 Insulin) amlodipine 5 mg tablet 10 mg PO QDAY 04/04/25 04/04/25 History buspirone 5 mg tablet 5 mg PO QDAY 04/04/25 04/04/25 History clonidine HCl 0.1 mg tablet 0.1 mg PO BID 04/04/25 04/04/25 History hydralazine 100 mg tablet 100 mg PO TID 04/04/25 04/04/25 History lisinopril 40 mg tablet 40 mg PO QDAY 04/04/25 04/04/25 History loratadine 10 mg tablet (Allergy 10 mg PO QDAY 04/04/25 04/04/25 History Relief (loratadine)) metolazone 5 mg tablet 5 mg PO QDAY 04/04/25 04/04/25 History metoprolol succinate 25 mg 25 mg PO QDAY 04/04/25 04/04/25 History tablet,extended release 24 hr spironolactone 50 mg tablet 50 mg PO QDAY 04/04/25 04/04/25 History Allergies Allergy/AdvReac Type Severity Reaction Status Date / Time codeine Allergy Severe RASH Verified 03/21/25 22:27 diphenhydramine HCl Allergy Severe Hives Verified 03/21/25 22:27 egg Allergy Severe Rash Verified 03/21/25 22:27 Penicillins Allergy Severe SWELLING, Verified 03/21/25 22:27 RESP DISTRESS pentazocine (From Evaristo) Allergy Severe Hives Verified 03/21/25 22:27 Visit Medications Acetaminophen (Acetaminophen 325 Mg Tablet) 650 mg PO Q6H PRN PRN Reason: PAIN SCALE 1-3 (mild Stop: 05/03/25 20:13 Last Admin: 04/05/25 00:00 Dose: 650 mg Albuterol (Albuterol Inh 8 Gm) 2 puff INH Q4HRRT [facility] Stop: 05/04/25 18:59 Last Admin: 04/05/25 06:28 Dose: 2 puff Amlodipine Besylate (Amlodipine Besylate 5 Mg Tablet) 5 mg PO BID [facility] Stop: 05/04/25 08:59 Last Admin: 04/04/25 21:23 Dose: Not Given Apixaban (Apixaban 2.5 Mg Tablet) 2.5 mg PO BID [facility] Stop: 04/25/25 08:29 Aspirin (Aspirin Ec 81 Mg Tabec) 81 mg PO QDAY [facility] Stop: 05/04/25 08:59 Last Admin: 04/04/25 08:02 Dose: 81 mg Azithromycin (Azithromycin 250 Mg Tablet) 500 mg PO QDAY [facility] Stop: 04/11/25 08:59 Last Admin: 04/04/25 08:00 Dose: 500 mg Buspirone HCl (Buspirone Hcl 5 Mg Tablet) 5 mg PO QDAY [facility] Stop: 05/04/25 08:59 Last Admin: 04/04/25 08:01 Dose: 5 mg Dextrose (Dextrose 50%-Water Inj 50 Ml Syringe) 25 ml IV Q15MIN PRN PRN Reason: BG 50-70 responsive npo pt Stop: 05/03/25 21:01 Dextrose (Dextrose 50%-Water Inj 50 Ml Syringe) 50 ml IV Q15MIN PRN PRN Reason: BG <50 OR BG <70 & pt unresponsive Stop: 05/03/25 21:01 Glucagon (Glucagon Inj 1 Mg Vial) 1 mg IM Q15MIN PRN PRN Reason: BG <70, and no IV access Piperacillin/Tazobactam/Dextrose (Zosyn) 3.375 gm in 50 mls @ 100 mls/hr IV Q6HR [facility] Stop: 04/10/25 20:23 Last Admin: 04/05/25 05:30 Dose: 100 mls/hr Lactated Ringer's (Lactated Ringers) 1,000 mls @ 999 mls/hr IV .Q1H1M ONE Stop: 04/05/25 09:17 Insulin Glargine (Insulin Glargine (Lantus) 5 Unit/0.05 Ml (Per 5 Units)) 10 unit SC [facility] Stop: 05/04/25 20:59 Last Admin: 04/04/25 21:16 Dose: 10 unit Insulin Human Lispro (Insulin Lispro (Admelog) 1 Unit/0.01 Ml Unit) 0 unit SC [facility]; Protocol Stop: 05/04/25 07:29 Last Admin: 04/05/25 07:29 Dose: 1 unit Lisinopril (Lisinopril 20 Mg Tablet) 40 mg PO QDAY [facility] Stop: 05/04/25 08:59 Last Admin: 04/04/25 08:02 Dose: 40 mg Methadone HCl (Methadone Solution 5 Mg/5 Ml Udc) 100 mg PO QDAY KIP Stop: 04/09/25 08:59 Last Admin: 04/04/25 08:02 Dose: 100 mg Metolazone (Metolazone 2.5 Mg Tablet) 5 mg PO QDAY KIP Stop: 05/04/25 08:59 Last Admin: 04/04/25 10:26 Dose: 5 mg Metoprolol Succinate (Metoprolol Succinate Xl 25 Mg Tabcr) 25 mg PO QDAY [facility] Stop: 05/04/25 08:59 Last Admin: 04/04/25 08:00 Dose: 25 mg Ondansetron HCl (Ondansetron Inj 2 Mg/Ml Inj 2 Ml) 4 mg IVP Q6H PRN; Protocol PRN Reason: NAUSEA OR VOMITING Stop: 05/03/25 20:13 Last Admin: 04/04/25 11:33 Dose: 4 mg Pharmacy Consult (Pharmacy Renal Dose Adjustment 1 Ea) 1 each XX PRN PRN PRN Reason: CONSULT Stop: 05/05/25 08:14 Prednisone (Prednisone 20 Mg Tablet) 40 mg PO QDAY [facility] Stop: 04/09/25 08:59 Last Admin: 04/04/25 08:01 Dose: 40 mg Fluticasone/Salmeterol (Fluticasone/Salmeterol 250/50 14 Dose Inh) 1 puff INH BIDRT KIP Stop: 05/04/25 06:59 Last Admin: 04/05/25 06:28 Dose: 1 puff Sennosides (Senna Tablet) 1 tab PO QDAY PRN; Protocol PRN Reason: constipation Stop: 05/03/25 20:13 Last Admin: 04/05/25 00:00 Dose: 1 tab Sodium Chloride (Sodium Chloride Rt [place] 0.9% 3 Ml Nebu) 3 ml INH PRN PRN PRN Reason: SOLN Stop: 05/03/25 16:26 Last Admin: 04/03/25 16:45 Dose: 3 ml Sodium Chloride (Sodium Chloride Rt [place] 0.9% 3 Ml Nebu) 3 ml INH PRN PRN PRN Reason: SOLN Stop: 05/05/25 08:16 Discontinued Medications Acetaminophen (Acetaminophen 500 Mg Tablet) 1,000 mg PO X1 ONE Stop: 04/03/25 15:42 Last Admin: 04/03/25 15:48 Dose: 1,000 mg Albuterol (Albuterol Rt 2.5 Mg/0.5 Ml Nebu) 10 mg INH X1 ONE Stop: 04/03/25 16:28 Last Admin: 04/03/25 16:44 Dose: 10 mg Albuterol (Albuterol Inh 8 Gm) 2 puff INH Q4H KIP Stop: 05/03/25 20:14 Last Admin: 04/04/25 14:12 Dose: 2 puff Albuterol (Albuterol Rt 2.5 Mg/0.5 Ml Nebu) 10 mg INH X1 ONE Stop: 04/05/25 08:18 Amlodipine Besylate (Amlodipine Besylate 5 Mg Tablet) 5 mg PO BID KIP Stop: 05/03/25 21:14 Last Admin: 04/03/25 21:39 Dose: 5 mg Apixaban (Apixaban 2.5 Mg Tablet) 5 mg PO BID KIP Stop: 04/25/25 08:59 Last Admin: 04/04/25 21:17 Dose: 5 mg Calcium Chloride (Calcium Chloride 10% Inj 10 Ml Syrg) 10 ml IV X1 ONE Stop: 04/05/25 08:22 Last Admin: 04/05/25 08:37 Dose: Not Given Fentanyl Citrate (Fentanyl Cit Inj 50 Mcg/Ml Amp 2ml) 50 mcg IM X1 ONE Stop: 04/03/25 15:07 Last Admin: 04/03/25 15:18 Dose: 50 mcg Guaifenesin (Guaifenesin Syrup 200 Mg/10 Ml Udc) 100 mg PO X1 ONE; Protocol Stop: 04/05/25 05:55 Last Admin: 04/05/25 06:10 Dose: 100 mg Heparin Sodium (Porcine) (Heparin Sod Inj 5000 Unit/Ml Vial) 5,000 unit SC Q8HR KIP Stop: 04/17/25 21:59 Last Admin: 04/03/25 21:39 Dose: 5,000 unit Heparin Sodium (Porcine) (Heparin Sod Inj 5000 Unit/Ml Vial) 5,000 unit SC Q12HR KIP Stop: 04/18/25 08:59 Meropenem 1,000 mg/ Sodium (Chloride) 50 mls @ 100 mls/hr IV X1 ONE Stop: 04/03/25 16:34 Last Infusion: 04/03/25 18:12 Dose: Infused Sodium Chloride (Ns) 1,987 mls @ 1,987 mls/hr 30 ml/kg infuse over 60 min (1987 ml) IV .Q1H ONE; Protocol Stop: 04/03/25 17:34 Last Infusion: 04/03/25 19:15 Dose: Infused Insulin Human Regular (Insulin Hum Regular 1 Unit/0.01 Ml (Per Unit)) 5 unit SC X1 ONE Stop: 04/04/25 08:01 Last Admin: 04/04/25 08:11 Dose: 5 unit Insulin Human Regular (Insulin Hum Regular 1 Unit/0.01 Ml (Per Unit)) 5 unit IV X1 ONE Stop: 04/05/25 08:22 Last Admin: 04/05/25 08:37 Dose: Not Given Lidocaine (Lidocaine 5% 1 Patch) 1 patch TOP X1 ONE Stop: 04/04/25 00:24 Last Admin: 04/04/25 00:52 Dose: 1 patch Methylprednisolone Sodium Succinate (Methylprednisolone Sod Succ 62.5 Mg/Ml 2ml Vial) 125 mg IVP X1 ONE Stop: 04/03/25 16:28 Last Admin: 04/03/25 17:31 Dose: 125 mg Sodium Polystyrene Sulfonate (Sod Polystyrene Sulfon Susp 15 Gm/60 Ml Btl) 15 gm PO X1 ONE Stop: 04/05/25 08:17 Assessment & Plan Plan Christina Diaz is a 64-year-old F with a PMH of ESBL UTI, COPD on 2-3 L at home, CHF, atrial fibrillation on Eliquis, Takotsubo's cardiomyopathy, substance use disorder (heroin and methamphetamine), type 2 diabetes, HTN, viral meningitis, and stroke who was admitted with acute on chronic COPD exacerbation and UTI, previous history of ESBL. Nephrology is consulted for TEHO in setting of recent contrast use. #THEO Patient endorsed mild lower back and flank pain 04/04 at night, not currently having that pain though. Patient had Chest CTA 04/03, with increasing creatinine and BUN 04/04 & 04/05, making contrast induced nephropathy likely etiology. Less likely renal atheroemboli with lack of evidence of digital ischemia, transient eosinophilia and the timing generally being days or weeks after angiography. Management is supportive. Plan: -started 1 bag NS fluids at 75 ml/hr -ordered UA, random urine Na/Cr/protein and Renal US, f/u -elimination and avoidance of other potential kidney insults -hemodynamic and electrolyte assessment and management -appropriate dose adjustment of medications for the reduction in GFR -monitoring for uremic signs and symptoms. #Acute on chronic COPD exacerbation #Possible bacterial community-acquired pneumonia #UTI #Atrial Fibrillation #Atrial Fibrillation w/RVR, Resolved #Headache #Neck pain #Iron Deficiency Anemia #T2DM, insulin dependent #Hypertension #Gastritis #Esophagitis #Opioid withdrawal symptoms #Incidental Pulmonary Nodules #Incidental Pancreatic Mass -continue medical management per primary team Thank you for allowing us to take part in the care of Christina Diaz Plan of care was discussed with attending, Dr. Yao Weir MD PGY-1 Internal Medicine Attending Provider Attestation/Addendum Patient seen and examined with resident physician Dr. Weir. Note reviewed, agree with findings and recommendations with changes made. Patient admitted with pneumonia and COPD exacerbation. Did get a CTA chest with contrast. Could have exacerbated the creatinine. Currently on fluids. Will monitor creatinine closely. Thank you Dr. Butterfield for allowing me to participate in the care of Ms. Diaz
[2025-04-05] MEDS: SOD POLYSTYRENE SULFON SUSP 15 GM/60 ML BTL PO (09:11)
[2025-04-05] MEDS: AZITHROMYCIN 250 MG TABLET 500 MG PO (09:12)
[2025-04-05] MEDS: APIXABAN 2.5 MG TABLET PO (09:12)
[2025-04-05] MEDS: ASPIRIN EC 81 MG TABEC PO (09:13)
[2025-04-05] MEDS: METOPROLOL SUCCINATE XL 25 MG TABCR PO (09:14)
[2025-04-05] MEDS: RINGERS LACTATED 1000 ML 1,000 ML 999 ML IV (09:14)
[2025-04-05] MEDS: METHADONE HCL 10 MG TABLET 100 MG PO (09:20)
[2025-04-05] MEDS: ALBUTEROL RT 2.5 MG/0.5 ML NEBU 10 MG INH (09:28)
--- NOTE | 2025-04-05 09:28 | ESPR_ITS ---
Documentation for date of: 04/05/25 Improved work of breathing. Patient now on 2 Liters Nasal Cannula. Decreased wheezing noted on physical exam. Increased WBC 19.5, patient has remained afebrile. Patient continues to be treated for COPD exacerbation with Azithromycin and Zosyn given history of ESBL UTI. Blood Culture negative. Urine Culture E Coli-ESBL sensitive to Zosyn,Notrofuratoin, and Tetracycline. THEO on CKD, BUN 50 Cr 1.9 and BUN 34, likely pre-renal in nature, monitor for urine. LIkely pre-renal in nature but monitor of intrinsic injury given recent contrast-monitor urine output vs obstructive given hydronephrosis noted. Fluid resuscitation. Hold Lisinopril. Nephrology consulted Follow up with BUN-Cr AM. Subjective Subjective Interval history: Patient was evaluated bedside today. Patient acknowledged improvement in her shortness of breath, but noted to still have mucus congestion. Patient was seen coughing up green and clear phlegm. Wheezing was noted on examination. Guaifenesin 100 mg PO x1 given to help with mucus congestion. Patient stated that her headache had resolved and screening neurological examination was normal. Patient endorsed improvement of urinary symptoms, including dysuria and urgency. Patient denied flank pain and CVA tendeness was not present on examination. Urine culture positive for gram negative rods (history of ESBL UTI). Patient stated she had an episode of emesis with her methadone solution yesterday. Switched to PO today. Cr trending upward to 1.9, possible THEO on CKD due to contrast from Chest CT. Consulted Nephrology Dr. Samayoa, appreciate recommendations Exam Vital Signs Temp Pulse Resp BP Pulse Ox O2 Del Method O2 Flow Rate 97.2 F 62 14 119/66 97 Nasal Cannula 2 04/05/25 08:00 04/05/25 09:14 04/05/25 08:00 04/05/25 09:14 04/05/25 08:00 04/05/25 08:00 04/05/25 08:00 Narrative Exam General Appearance: Alert & Oriented X3, well-nourished female who is lying in bed in mild respiratory distress. HEENT: Skull symmetrical and atraumatic. Conjunctivae pink and moist. Pupils equal, round, reactive to light and accommodation (PERRL). External ear without lesion or discharge. Straight, nares patient, mucosa pink, no discharge. No thyroid nodule appreciated. No cervical lymphadenopathy. Cardio: Normal Rate and Rhythm with S1 and S2 heart sounds. No murmurs or extra heart sounds auscultated. No bruits on carotid auscultation. No peripheral edema or cyanosis. Lungs: Symmetric with good expansion. Chest and back non-tender. Breath sounds vesicular without crackles, wheezing or rhonchi Abdomen: Non-tender, Non-distended, Normal Reactive Bowel Sounds Neuro: Alert, cooperative, oriented to person, place, and time. Speech clear. CN grossly intact. Upper motor strength 5/5 and Lower motor strength 5/5. Sensation intact. Objective Labs 04/06/25 04:51 04/06/25 04:51 Labs: Laboratory Results - last 24 hr 04/05/25 05:20 WBC 19.5 H RBC 3.19 L Hgb 8.3 L Hct 25.1 L MCV 79 L MCH 26.0 MCHC 33.1 RDW Std Deviation 39.5 Plt Count 179 Neut % (Auto) 81 H Lymph % (Auto) 12 [place] % (Auto) 6 Eos % (Auto) 0 Baso % (Auto) 0 Neut # (Auto) 15.7 H Lymph # (Auto) 2.3 [place] # (Auto) 1.2 H Eos # (Auto) 0.0 Baso # (Auto) 0.0 Immature Gran # (Auto) 0.24 H Absolute Nucleated RBC 0.00 Immature Gran % 1 H Nucleated RBC % 0 Sodium 139 Potassium 5.3 H D Chloride 106 Carbon Dioxide 22.9 Anion Gap 10 BUN 64 H Creatinine 1.9 H Estim Creat Clear Calc 30.8 L eGFR 29 L BUN/Creatinine Ratio 34 H Glucose 140 H D Calculated Osmolality 297 H Calcium 8.3 Corrected Calcium 8.8 Phosphorus 4.5 Magnesium 2.2 Total Bilirubin < 0.2 L AST 21 ALT 12 Alkaline Phosphatase 46 Total Protein 5.4 L Albumin 3.4 Globulin 2.0 L Albumin/Globulin Ratio 1.7 ABG Interpretation ABG results: 04/03/25 17:10 VBG pH 7.30 L VBG pCO2 52 VBG pO2 39 VBG Base Excess -1 Quality Measures Quality Measures VTE prophylaxis (Eliquis 5 mg PO Q12H) Assessment & Plan Assessment Current Active Medications: Generic Name Dose Route Start Last Admin Trade Name Freq PRN Reason Stop Dose Admin Acetaminophen 650 mg 04/03/25 20:14 04/05/25 00:00 Acetaminophen 325 Mg Tablet PO 05/03/25 20:13 650 mg Q6H PRN Administration PAIN SCALE 1-3 (mild Albuterol 2 puff 04/04/25 19:00 04/05/25 06:28 Albuterol Inh 8 Gm INH 05/04/25 18:59 2 puff Q4HRRT KIP Administration Amlodipine Besylate 5 mg 04/04/25 09:00 04/05/25 09:13 Amlodipine Besylate 5 Mg Tablet PO 05/04/25 08:59 5 mg BID KIP Administration Apixaban 2.5 mg 04/05/25 08:30 04/05/25 09:12 Apixaban 2.5 Mg Tablet PO 04/25/25 08:29 2.5 mg BID KIP Administration Aspirin 81 mg 04/04/25 09:00 04/05/25 09:13 Aspirin Ec 81 Mg Tabec PO 05/04/25 08:59 81 mg QDAY KIP Administration Azithromycin 500 mg 04/04/25 09:00 04/05/25 09:12 Azithromycin 250 Mg Tablet PO 04/11/25 08:59 500 mg QDAY KIP Administration Buspirone HCl 5 mg 04/04/25 09:00 04/05/25 09:13 Buspirone Hcl 5 Mg Tablet PO 05/04/25 08:59 5 mg QDAY KIP Administration Dextrose 25 ml 04/03/25 21:02 Dextrose 50%-Water Inj 50 Ml Syringe IV 05/03/25 21:01 Q15MIN PRN BG 50-70 responsive npo pt Dextrose 50 ml 04/03/25 21:02 Dextrose 50%-Water Inj 50 Ml Syringe IV 05/03/25 21:01 Q15MIN PRN BG <50 OR BG <70 & pt unresponsive Glucagon 1 mg 04/03/25 21:02 Glucagon Inj 1 Mg Vial IM Q15MIN PRN BG <70, and no IV access Piperacillin/Tazobactam/Dextrose 3.375 gm in 50 mls @ 100 mls/hr 04/03/25 20:24 04/05/25 05:30 Zosyn IV 04/10/25 20:23 100 mls/hr Q6HR KIP Administration Insulin Glargine 10 unit 04/04/25 21:00 04/04/25 21:16 Insulin Glargine (Lantus) 5 Unit/0.05 Ml (Per 5 Units) SC 05/04/25 20:59 10 unit HS KIP Administration Insulin Human Lispro 0 unit 04/04/25 07:30 04/05/25 07:29 Insulin Lispro (Admelog) 1 Unit/0.01 Ml Unit SC 05/04/25 07:29 1 unit ACHS KIP Administration Protocol Lisinopril 40 mg 04/04/25 09:00 04/05/25 09:12 Lisinopril 20 Mg Tablet PO 05/04/25 08:59 40 mg QDAY KIP Administration Methadone HCl 100 mg 04/05/25 09:15 04/05/25 09:20 Methadone Hcl 10 Mg Tablet PO 04/10/25 09:14 100 mg DAILY KIP Administration Metolazone 5 mg 04/04/25 09:00 04/05/25 09:14 Metolazone 2.5 Mg Tablet PO 05/04/25 08:59 5 mg QDAY KIP Administration Metoprolol Succinate 25 mg 04/04/25 09:00 04/05/25 09:14 Metoprolol Succinate Xl 25 Mg Tabcr PO 05/04/25 08:59 25 mg QDAY KIP Administration Ondansetron HCl 4 mg 04/03/25 20:14 04/04/25 11:33 Ondansetron Inj 2 Mg/Ml Inj 2 Ml IVP 05/03/25 20:13 4 mg Q6H PRN Administration NAUSEA OR VOMITING Protocol Pharmacy Consult 1 each 04/05/25 08:15 Pharmacy Renal Dose Adjustment 1 Ea XX 05/05/25 08:14 PRN PRN CONSULT Prednisone 40 mg 04/04/25 09:00 04/05/25 09:11 Prednisone 20 Mg Tablet PO 04/09/25 08:59 40 mg QDAY KIP Administration Fluticasone/Salmeterol 1 puff 04/04/25 07:00 04/05/25 06:28 Fluticasone/Salmeterol 250/50 14 Dose Inh INH 05/04/25 06:59 1 puff BIDRT KIP Administration Sennosides 1 tab 04/03/25 20:14 04/05/25 00:00 Senna Tablet PO 05/03/25 20:13 1 tab QDAY PRN Administration constipation Protocol Sodium Chloride 3 ml 04/03/25 16:27 04/03/25 16:45 Sodium Chloride Rt [place] 0.9% 3 Ml Nebu INH 05/03/25 16:26 3 ml PRN PRN Administration SOLN Sodium Chloride 3 ml 04/05/25 08:17 Sodium Chloride Rt [place] 0.9% 3 Ml Nebu INH 05/05/25 08:16 PRN PRN SOLN Plan Plan Christina Diaz is a 64-year-old F with a PMH of ESBL UTI, COPD on 2-3 L at home, CHF, atrial fibrillation on Eliquis, Takotsubo's cardiomyopathy, substance use disorder (heroin and methamphetamine), type 2 diabetes, HTN, viral meningitis, and stroke who was admitted with acute on chronic COPD exacerbation and UTI, previous history of ESBL. #Acute Kidney Injury on CKD Patient's BUN, Cr, and K increased over 24 hours, GFR decreased Possibly due to contrast from CTA Pertinent labs: 04/04 BUN 30 Cr 1.6 GFR 36 K 4.6 04/05 (am) BUN 64 Cr 1.9 GFR 29 K 5.3 Renal US 04/05 mild bilateral hydronephrosis Right kidney 9.6 cm cortex 1.1 cm Left kidney 12.1 cm cortex 2.6 cm Plan: -1 L NS fluid resuscitation, per nephrology Dr. Chauhan, appreciate recommendations -Renal panel re-ordered 04/05 (pm): BUN 50 Cr 1.8 GFR 31 K 4.4 -Continue to monitor #Acute on chronic COPD exacerbation #Possible bacterial community-acquired pneumonia Upon admission, patient's SpO2 was 95% on nasal cannula with O2 flow rate of 6 -----> / titrated down to 2L O2 SpO2 95% FiO2 21 CXR showed mild pneumonia at the left base Patient endorsed cough productive of green sputum for the last 3 days, along with itchy eyes and rhinorrhea -Started PO prednisone 40 mg intended for 5 days duration -Started azithromycin 500 mg intended for 3 days duration due to worsening green sputum production and signs of pneumonia on CXR -Breathing treatments and supplemental O2 as needed to maintain SpO2 between 88- 92% -Guaifenesin 100 mg x1 PO to liquify mucus #UTI UA showed 4+ bacteria with positive nitrite and LE History of ESBL UTIs (most recently in December 2024) Fever present initially spiking at 100.6, but no elevation of WBC initially --------> WBC 19.5 -Started IV Zosyn 3.375g q6H for treatment of UTI with coverage for ESBL- producing organisms -Urine culture: gram negative rods #Atrial Fibrillation #Atrial Fibrillation w/RVR, Resolved Patient has a history of Afib w/RVR 04/03 EKG demonstrated sinus rhythm with possible old inferior infarct Plan: Continue metoprolol 25 mg PO QD and eliquis 5 mg PO Q12H HOLD Metoprolol if COPD exacerbation worsens. #Headache #Neck pain Working dx: cervicogenic headache Differential dx: bacterial or viral meningitis, migraine, tension headache Cervicogenic headache is supported by the localization of the pain to the posterior neck that radiates to the back of the head in the setting of unremarkable head CT and lack of positive Brudzinski's and Kernig's signs for meningitis Migraine is less likely due to lack of photophobia, pounding, nausea, or visual auras and tension headache is less likely due to pain localization not being a band around the head -Recommendation for outpatient physical therapy #Chronic Kidney Disease, Stage IIIB GFR 12/2024 51 02/2025 36 03/2025 36 Creatinine steady between 1.4-1.6 since 12/2024 Renal US 12/2024 right kidney 11.8 cm renal cortex 1.1 left kidney 11.3 renal cortex 1.1; bilateral renal cortical thinning Renal Artery US 12/2024 no renal artery stenosis Plan: Avoid nephrotoxins and renally dose medication Continue to monitor serum chemistry and renal panel #Iron Deficiency Anemia Patient complained of dark stools in the past. CBC showed low RBC of 3.78, low Hgb of 9.7, and low MCV of 77 7/10 RBC 3.36 MCV 17 Hgb 8.7 Hct 26.1 04/04 Fe Panel: Iron 15 TIBC 340 Iron Sat 4 Plan: Recommend outpatient colonoscopy Resume Fe supplementation as outpatient Repeat iron panel 4-6 weeks #T2DM, insulin dependent Upon admission, patient had a high blood glucose of 195. Home medication of Glargine 26 units HS. 04/04 glucose 329 w/ A1c of 6.4% Plan: Continue insulin sliding scale for control of blood sugar levels Started Lantus 10 unit SC HS #Hypertension Upon presentation to the ED, patient's BP was 176/93 Plan: Continue home medications of amlodipine, lisinopril and metolazone #Gastritis #Esophagitis Patient endorsed dark stools in the past. EGD 12/2024 Dr. Ludwig demonstrated esophagitis accompanied by white plaques and gastric mucosa with erythema. Plan: Diet advance as tolerated Monitor for possible outpatient colonoscopy #Opioid withdrawal symptoms Patient has extensive history of heroin use and is on methadone at home Plan: Continue home medication of methadone 100 mg qD to treat opioid withdrawal symptoms #Incidental Pulmonary Nodules 04/03 CT chest revealed bilateral subcentimeter pulmonary nodules that have grown in number compared to 10/2024 CT chest Plan: Recommend 3-6 month follow up Chest CT without contrast #Incidental Pancreatic Mass 04/[address] 23 mm hypoechoic mass in tail of pancreas Plan: Recommended MRI with and without to assess Hospital Management: Disposition: undergoing workup and management of UTI, possible COPD exacerbation, and neck pain w/ headache Fluids: none Diet: cardiac w/ consistent carb low Lines: none DVT Prophylaxis: Eliquis 5 mg BID (home medication) [place]: not in place CODE STATUS: Full Code Case reviewed with attending Dr. Butterfield and senior resident Dr. Puga. Xiao Hogan MS-4 - The patient's plan was discussed with attending Dr. Scout Puga MD PGY2 Internal Medicine Attending Provider Attestation/Addendum 64-year-old female with multiple comorbidities including hypertension, hyperlipidemia, type 2 diabetes mellitus, COPD on 2-3 L supplemental oxygen at home, atrial fibrillation on Eliquis polysubstance use who presented to the ER with shortness of breath found to have a Toxic respiratory failure secondary to COPD exacerbation requiring increasing oxygen requirement. In addition, patient also noted to have THEO on CKD which we will continue to monitor closely. Overnight, patient oxygen requirement down trended to baseline however creatinine trended up for which we will monitor for another 24 hours. I reviewed above note and agree with findings and plans. I have also personally examined the patient with medicine team and went over assessment and plan with medical team including technology intern and resident physician.
--- NOTE | 2025-04-05 11:08 | PC.SS ---
Follow up note: Pt has low potassium. Correct potassium levels. Pt will return home upon dc.
--- NOTE | 2025-04-05 11:49 | XR_ITS ---
Examination: Retroperitoneal ultrasound, complete Technique: Multiple high resolution grayscale images of the retroperitoneum obtained, including kidneys and bladder. Exam date and time:April 05, 2025 1212 hours INDICATIONS: Acute renal insufficiency on laboratory examination this week, dysuria beginning 2 days ago FINDINGS: Right kidney 9.6 cm renal cortex 1.1 cm Minimal hydronephrosis 26 mm cyst Left kidney 12.1 cm cortex 2.6 cm Minimal hydronephrosis Mild to moderate bilateral renal parenchymal scar formation No renal calculi Contracted urinary bladder IMPRESSION: Minimal bilateral hydronephrosis, consider urinary tract infection Mild to moderate bilateral renal parenchymal scar formation
[2025-04-05] MEDS: SODIUM CHLORIDE 0.9% 1000 ML 1,000 ML 75 ML IV (12:29)
[2025-04-05 12:30] LABS: Albumin, Serum 3.6 gm/dL (3.4-4.8); Anion Gap 7 (7-16); BUN/Creatinine Ratio 28 Ratio (12-20); Blood Urea Nitrogen 50 mg/dL (9-23); Calcium 8.5 mg/dL (8.3-10.6); Calcium (Corrected) 8.8 mg/dL (8.5-10.1); Carbon Dioxide 27.5 mMol/L (20.0-31.0); Chloride 106 mMol/L (98-107); Creatinine (Component) 1.8 mg/dL (0.6-1.3); Estimated Creatinine Clearance 32.5 mL/min (>60); Glucose 217 mg/dL (74-106); Osmolality,Calculated 299 (275-295); Phosphorous 3.1 mg/dL (2.4-5.1); Potassium 4.4 mMol/L (3.4-5.1); Sodium 140 mMol/L (136-145); eGFR 31 See Note
[2025-04-05 13:11] LABS: Cocci Serology, IgM Negative (Negative)
[2025-04-05] MEDS: ACETAMINOPHEN 325 MG TABLET 650 MG PO ×2 (14:13)
[2025-04-05] MEDS: ONDANSETRON INJ 2 MG/ML INJ 2 ML 4 MG IVP (18:04)
[2025-04-05] MEDS: APIXABAN 2.5 MG TABLET 5 MG PO (21:18)
[2025-04-05] MEDS: INSULIN GLARGINE (Lantus) 5 UNIT/0.05 ML (PER 5 UNITS) 10 UNIT SC (21:19)
[2025-04-06] VITALS (13 sets, daily range): BP systolic 122–184; BP diastolic 65–75; PULSE 56–72; RESP 16–20; TEMP 36.2–36.6; O2SAT 93–99; BMI 27.6
[2025-04-06] MEDS: PIPER/TAZO 3.375 GM PREMIX 3.375 GM/50 ML BAG IV ×2 (00:19→05:53)
[2025-04-06] MEDS: ACETAMINOPHEN 325 MG TABLET 650 MG PO (00:32)
[2025-04-06 01:34] LABS: Collection Type, Urine Catheter; Squamous Epithelial Cell,Urine 0 /hpf (0-5)
[2025-04-06 01:51] LABS: Amorphous Crystals,Urine Present (Absent); Bacteria,Urine Rare; Bilirubin,Urine Negative (Negative); Blood,Urine 3+ (Negative); Clarity,Urine Clear (Clear/Hazy); Color,Urine Lt-Yellow (Lt Yel-Yel); Glucose, Urine Negative (Negative); Ketones,Urine Negative (Negative); Leukocyte Esterase,Urine Positive (Negative); Nitrite,Urine Negative (Negative); PH,Urine 5.5 (5.0-7.0); Protein,Urine Negative (Neg - Trace); RBC,Urine 55 /hpf (0-3); Specific Gravity,Urine 1.014 (1.001-1.035); Urobilinogen,Urine Negative mg/dL (0.0-1.0); WBC,Urine 10 /hpf (0-5)
[2025-04-06 01:55] LABS: Creatinine,Random Urine 34 mg/dL (30-125); Protein Total, Random Urine 25 mg/dL (1-14); Sodium,Urine Random 91.9 mMol/L (20.0-110.0)
--- NOTE | 2025-04-06 02:19 | EKG_ITS ---
[facility] Test Date: 2025-04-06 Pat Name: DISHA ABRAHAM [facility] [employer] Supervisor: GERTRUDE : 1960 Requested By: Nikki Seymour Order Number: [id number] Reading MD: Nikki Seymour Measurements Intervals [place] Rate: 59 P: 69 UT: 181 QRS: 48 QRSD: 96 T: 55 QT: 416 QTc: 415 Interpretive Statements SINUS BRADYCARDIA Compared to ECG 04/03/2025 11:57:25 Sinus tachycardia no longer present Myocardial infarct finding no longer present /store/[id number]
[2025-04-06] MEDS: ALBUTEROL INH 8 GM 2 PUFF INH ×3 (02:34→11:08)
[2025-04-06] MEDS: KETOROLAC INJ 30 MG/ML VIAL IVP (02:45)
[2025-04-06] MEDS: FLUTICASONE/SALMETEROL 250/50 14 DOSE INH 1 PUFF INH (06:13)
[2025-04-06 06:25] LABS: Basophils # (Auto) 0.0 Thou/mm3 (0.0-0.2); Basophils % (Auto) 0 % (0-2.5); Eosinophils # (Auto) 0.0 Thou/mm3 (0.0-0.5); Eosinophils % (Auto) 0 % (0-10); Hematocrit 25.8 % (36.0-46.0); Immature Granulocytes Auto 0.08 Thou/mm3 (0.00-0.00); Lymphocytes # (Auto) 2.6 Thou/mm3 (1.0-4.8); Lymphocytes % (Auto) 21 % (10-50); Mean Corpuscular HGB Conc 32.9 g/dl (31.0-37.0); Mean Corpuscular Hemoglobin 25.8 pg (25.0-35.0); Mean Corpuscular Volume 78 fL (80-100); Monocytes # (Auto) 0.8 Thou/mm3 (0.0-0.8); Monocytes % (Auto) 7 % (0-12); Neutrophils # (Auto) 8.9 Thou/mm3 (1.8-7.7); Neutrophils % (Auto) 71 % (37-80); Nucleated Red Blood Cell # 0.00 Thou/mm3 (0.00-0.00); Nucleated Red Blood Cell % 0 /100 WBC (0); Platelet Count 246 Thou/mm3 (140-440); RDW Standard Deviation 39.5 fL (36.4-46.3); Red Blood Count 3.29 Miln/mm3 (4.00-5.20); White Blood Count 12.4 Thou/mm3 (3.6-11.0)
[2025-04-06 06:29] LABS: Hemoglobin 8.5 g/dL (12.0-16.0)
[2025-04-06 06:41] LABS: Alanine Aminotransferase 12 U/L (10-49); Albumin, Serum 3.5 gm/dL (3.4-4.8); Albumin/Globulin Ratio 1.5 (1.2-2.2); Alkaline Phosphatase 45 U/L (46-116); Anion Gap 9 (7-16); Aspartate Amino Transferase 18 U/L (0-34); BUN/Creatinine Ratio 26 Ratio (12-20); Bilirubin,Total 0.2 mg/dL (0.3-1.2); Blood Urea Nitrogen 39 mg/dL (9-23); Calcium 8.7 mg/dL (8.3-10.6); Calcium (Corrected) 9.1 mg/dL (8.5-10.1); Carbon Dioxide 27.8 mMol/L (20.0-31.0); Chloride 107 mMol/L (98-107); Creatinine (Component) 1.5 mg/dL (0.6-1.3); Estimated Creatinine Clearance 39.0 mL/min (>60); Globulin 2.4 gm/dL (2.3-3.5); Glucose 101 mg/dL (74-106); Magnesium 2.4 mg/dL (1.6-2.6); Osmolality,Calculated 296 (275-295); Phosphorous 3.2 mg/dL (2.4-5.1); Potassium 4.3 mMol/L (3.4-5.1); Sodium 144 mMol/L (136-145); Total Protein 5.9 gm/dL (5.7-8.2); eGFR 39 See Note
[2025-04-06 07:21] LABS: Cocci Serology, IgG Negative (Negative)
[2025-04-06] MEDS: METHADONE HCL 10 MG TABLET 100 MG PO (08:14)
[2025-04-06] MEDS: METOPROLOL SUCCINATE XL 25 MG TABCR PO (08:15)
[2025-04-06] MEDS: ASPIRIN EC 81 MG TABEC PO (08:15)
[2025-04-06] MEDS: APIXABAN 2.5 MG TABLET 5 MG PO (08:15)
[2025-04-06] MEDS: AZITHROMYCIN 250 MG TABLET 500 MG PO (08:15)
--- NOTE | 2025-04-06 10:49 | PC.NURSE ---
Discharge orders are in place. Per patient, family is expected to arrive and orange picker the patient at 1300.
--- NOTE | 2025-04-06 11:03 | PD.RESPRO ---
Documentation for date of: 04/06/25 Subjective Subjective Interval history: Christina Diaz is a 64-year-old F with a PMH of ESBL UTI, COPD on 2-3 L at home, CHF, atrial fibrillation on Eliquis, Takotsubo's cardiomyopathy, substance use disorder (heroin and methamphetamine), type 2 diabetes, HTN, viral meningitis, and stroke who was admitted for acute on chronic COPD exacerbation and UTI (hx of ESBL). Patient initially came in with shortness of breath w/ chest pain and a headache around her ear and neck. States the chest pain and shortness of breath have been a chronic problem for her, described as pressured. Stated that she had to use her albuterol inhaler up to 5 times per day recently due to worsening shortness of breath. She also had worsening headache with neck pain that started to worsen since the previous night. 04/05/25: Patient was consulted to nephrology for contrast induced THEO. Patient had Chest CTA 04/03, with increasing creatinine and BUN since then. Patient was seen and examined at bedside. Patient endorsed nausea and vomiting earlier this morning, some on and off pressured chest discomfort which is not occurring now, states her headache is feeling much better. Patient endorsed mild lower back pain that occurred last night that radiates around the flank, does not have that pain now. States her shortness of breath is doing better as well. Patient denies fever, palpitations, abdominal pain. Urine output last 24hrs is 1100 ml pure wick. Notable labs include WBC 19.5, Hgb 8.3, K 3.5, BUN 64 (30), Cr 1.9 (1.6). 04/06/25: No acute overnight events. Patient seen and examined at bedside. No new complaints. Denies fever, chest pain or SOB. Cr downtrending 1.8 to 1.5. UA +3 blood w RBCs, +LE, -nitrites. Renal US showed minimal bilateral hydronephrosis and mild-mod b/l renal parenchymal scarring. Exam Vital Signs Temp Pulse Resp BP Pulse Ox O2 Del Method O2 Flow Rate 97.8 F 65 16 139/68 H 97 Nasal Cannula 2 04/06/25 07:46 04/06/25 08:16 04/06/25 07:46 04/06/25 08:16 04/06/25 07:46 04/06/25 04:00 04/06/25 06:17 Narrative Exam General: AOx3, no acute distress HEENT: NC/AT, mucous membranes moist, bilateral sclera anicteric Cardiovascular: regular rate and rhythm, S1/S2 present, no murmurs appreciated Pulmonary: clear to auscultation bilaterally, no rales/rhonchi/wheezes Abdominal: soft, non-tender, non-distended, no rebound/guarding, bowel sounds present Extremities: no peripheral edema Skin: warm and dry, intact, no rashes Neuro CN II-XII grossly intact, no focal deficits, alert, following commands Objective Labs 04/06/25 04:51 04/06/25 04:51 Labs: Laboratory Results - last 24 hr 04/04/25 04/05/25 04/05/25 10:15 11:55 23:21 WBC RBC Hgb Hct MCV MCH MCHC RDW Std Deviation Plt Count Neut % (Auto) Lymph % (Auto) [place] % (Auto) Eos % (Auto) Baso % (Auto) Neut # (Auto) Lymph # (Auto) [place] # (Auto) Eos # (Auto) Baso # (Auto) Immature Gran # (Auto) Absolute Nucleated RBC Immature Gran % Nucleated RBC % Sodium 140 Potassium 4.4 D Chloride 106 Carbon Dioxide 27.5 Anion Gap 7 BUN 50 H Creatinine 1.8 H Estim Creat Clear Calc 32.5 L eGFR 31 L BUN/Creatinine Ratio 28 H Glucose 217 H D Calculated Osmolality 299 H Calcium 8.5 Corrected Calcium 8.8 Phosphorus 3.1 Magnesium Total Bilirubin AST ALT Alkaline Phosphatase Total Protein Albumin 3.6 Globulin Albumin/Globulin Ratio Ur Collection Type Catheter Urine Color Lt-Yellow Urine Clarity Clear Urine pH 5.5 Ur Specific [place] 1.014 Urine Protein Negative Urine Glucose (UA) Negative Urine Ketones Negative Urine Blood 3+ A Urine Nitrite Negative Urine Bilirubin Negative Urine Urobilinogen (Auto) Negative Ur Leukocyte Esterase Positive Urine RBC 55 H Urine WBC 10 H Ur Squamous Epith Cells 0 Amorphous Crystals Present A Urine Bacteria Rare Ur Random Creatinine 34 U Random Total Protein 25 H Ur Random Sodium 91.9 Coccidioides IgG Ab Negative Coccidioides IgM Ab Negative 04/06/25 04:51 WBC 12.4 H D RBC 3.29 L Hgb 8.5 L Hct 25.8 L MCV 78 L MCH 25.8 MCHC 32.9 RDW Std Deviation 39.5 Plt Count 246 D Neut % (Auto) 71 Lymph % (Auto) 21 [place] % (Auto) 7 Eos % (Auto) 0 Baso % (Auto) 0 Neut # (Auto) 8.9 H Lymph # (Auto) 2.6 [place] # (Auto) 0.8 Eos # (Auto) 0.0 Baso # (Auto) 0.0 Immature Gran # (Auto) 0.08 H Absolute Nucleated RBC 0.00 Immature Gran % 1 H Nucleated RBC % 0 Sodium 144 Potassium 4.3 Chloride 107 Carbon Dioxide 27.8 Anion Gap 9 BUN 39 H Creatinine 1.5 H Estim Creat Clear Calc 39.0 L eGFR 39 L BUN/Creatinine Ratio 26 H Glucose 101 D Calculated Osmolality 296 H Calcium 8.7 Corrected Calcium 9.1 Phosphorus 3.2 Magnesium 2.4 Total Bilirubin 0.2 L AST 18 ALT 12 Alkaline Phosphatase 45 L Total Protein 5.9 Albumin 3.5 Globulin 2.4 Albumin/Globulin Ratio 1.5 Ur Collection Type Urine Color Urine Clarity Urine pH Ur Specific [place] Urine Protein Urine Glucose (UA) Urine Ketones Urine Blood Urine Nitrite Urine Bilirubin Urine Urobilinogen (Auto) Ur Leukocyte Esterase Urine RBC Urine WBC Ur Squamous Epith Cells Amorphous Crystals Urine Bacteria Ur Random Creatinine U Random Total Protein Ur Random Sodium Coccidioides IgG Ab Coccidioides IgM Ab ABG Interpretation ABG results: 04/03/25 17:10 VBG pH 7.30 L VBG pCO2 52 VBG pO2 39 VBG Base Excess -1 Quality Measures Quality Measures VTE prophylaxis (Eliquis 5 mg PO Q12H) Assessment & Plan Assessment Current Active Medications: Generic Name Dose Route Start Last Admin Trade Name Lisa PRN Reason Stop Dose Admin Acetaminophen 650 mg 04/03/25 20:14 04/06/25 00:32 Acetaminophen 325 Mg Tablet PO 05/03/25 20:13 650 mg Q6H PRN Administration PAIN SCALE 1-3 (mild Albuterol 2 puff 04/04/25 19:00 04/06/25 06:13 Albuterol Inh 8 Gm INH 05/04/25 18:59 2 puff Q4HRRT KIP Administration Amlodipine Besylate 5 mg 04/04/25 09:00 04/06/25 08:15 Amlodipine Besylate 5 Mg Tablet PO 05/04/25 08:59 5 mg BID KIP Administration Apixaban 5 mg 04/05/25 21:00 04/06/25 08:15 Apixaban 2.5 Mg Tablet PO 04/26/25 20:59 5 mg BID KIP Administration Aspirin 81 mg 04/04/25 09:00 04/06/25 08:15 Aspirin Ec 81 Mg Tabec PO 05/04/25 08:59 81 mg QDAY KIP Administration Azithromycin 500 mg 04/04/25 09:00 04/06/25 08:15 Azithromycin 250 Mg Tablet PO 04/11/25 08:59 500 mg QDAY KIP Administration Buspirone HCl 5 mg 04/04/25 09:00 04/06/25 08:15 Buspirone Hcl 5 Mg Tablet PO 05/04/25 08:59 5 mg QDAY KIP Administration Dextrose 25 ml 04/03/25 21:02 Dextrose 50%-Water Inj 50 Ml Syringe IV 05/03/25 21:01 Q15MIN PRN BG 50-70 responsive npo pt Dextrose 50 ml 04/03/25 21:02 Dextrose 50%-Water Inj 50 Ml Syringe IV 05/03/25 21:01 Q15MIN PRN BG <50 OR BG <70 & pt unresponsive Glucagon 1 mg 04/03/25 21:02 Glucagon Inj 1 Mg Vial IM Q15MIN PRN BG <70, and no IV access Piperacillin/Tazobactam/Dextrose 3.375 gm in 50 mls @ 100 mls/hr 04/03/25 20:24 04/06/25 05:53 Zosyn IV 04/10/25 20:23 100 mls/hr Q6HR KIP Administration Insulin Glargine 10 unit 04/04/25 21:00 04/05/25 21:19 Insulin Glargine (Lantus) 5 Unit/0.05 Ml (Per 5 Units) SC 05/04/25 20:59 10 unit HS KIP Administration Insulin Human Lispro 0 unit 04/04/25 07:30 04/06/25 08:18 Insulin Lispro (Admelog) 1 Unit/0.01 Ml Unit SC 05/04/25 07:29 [facility] Protocol Lisinopril 40 mg 04/04/25 09:00 04/05/25 09:12 Lisinopril 20 Mg Tablet PO 05/04/25 08:59 40 mg QDAY KPI Administration Methadone HCl 100 mg 04/05/25 09:15 04/06/25 08:14 Methadone Hcl 10 Mg Tablet PO 04/10/25 09:14 100 mg DAILY KIP Administration Metolazone 5 mg 04/04/25 09:00 04/06/25 08:16 Metolazone 2.5 Mg Tablet PO 05/04/25 08:59 5 mg QDAY KIP Administration Metoprolol Succinate 25 mg 04/04/25 09:00 04/06/25 08:15 Metoprolol Succinate Xl 25 Mg Tabcr PO 05/04/25 08:59 25 mg QDAY KIP Administration Ondansetron HCl 4 mg 04/03/25 20:14 04/05/25 18:04 Ondansetron Inj 2 Mg/Ml Inj 2 Ml IVP 05/03/25 20:13 4 mg Q6H PRN Administration NAUSEA OR VOMITING Protocol Pharmacy Consult 1 each 04/05/25 08:15 Pharmacy Renal Dose Adjustment 1 Ea XX 05/05/25 08:14 PRN PRN CONSULT Prednisone 40 mg 04/04/25 09:00 04/06/25 08:15 Prednisone 20 Mg Tablet PO 04/09/25 08:59 40 mg QDAY KIP Administration Fluticasone/Salmeterol 1 puff 04/04/25 07:00 04/06/25 06:13 Fluticasone/Salmeterol 250/50 14 Dose Inh INH 05/04/25 06:59 1 puff BIDRT KIP Administration Sennosides 1 tab 04/03/25 20:14 04/05/25 00:00 Senna Tablet PO 05/03/25 20:13 1 tab QDAY PRN Administration constipation Protocol Sodium Chloride 3 ml 04/03/25 16:27 04/03/25 16:45 Sodium Chloride Rt [place] 0.9% 3 Ml Nebu INH 05/03/25 16:26 3 ml PRN PRN Administration SOLN Sodium Chloride 3 ml 04/05/25 08:17 Sodium Chloride Rt [place] 0.9% 3 Ml Nebu INH 05/05/25 08:16 PRN PRN SOLN Plan Christina Diaz is a 64-year-old F with a PMH of ESBL UTI, COPD on 2-3 L at home, CHF, atrial fibrillation on Eliquis, Takotsubo's cardiomyopathy, substance use disorder (heroin and methamphetamine), type 2 diabetes, HTN, viral meningitis, and stroke who was admitted with acute on chronic COPD exacerbation and UTI, previous history of ESBL. Nephrology is consulted for contrast induced THEO. #THEO Patient endorsed mild lower back and flank pain 04/04 at night, not currently having that pain. Chest CTA done 04/03, with increasing Cr and BUN 04/04 & 04/05, making contrast induced nephropathy likely etiology. Today Cr downtrending 1.8 to 1.5 post fluids. UA showed +3 blood w RBCs, +LE, -nitrites. Renal US showed minimal bilateral hydronephrosis and mild-mod b/l renal parenchymal scarring. Plan: -avoid nephrotoxic agents -renally dose medication -on discharge, recommend to start with lower lisinopril dose of 10 mg daily #Acute on chronic COPD exacerbation #Possible bacterial community-acquired pneumonia #UTI #Atrial Fibrillation #Atrial Fibrillation w/RVR, Resolved #Headache #Neck pain #Iron Deficiency Anemia #T2DM, insulin dependent #Hypertension #Gastritis #Esophagitis #Opioid withdrawal symptoms #Incidental Pulmonary Nodules #Incidental Pancreatic Mass -continue medical management per primary team Thank you for allowing us to take part in the care of Christina Diaz Plan of care was discussed with attending, Dr. Yao Giordano DO, PGY-1 Attending Provider Attestation/Addendum Patient seen and examined with resident physician Dr. Giordano. Note reviewed, agree with findings and recommendations with few changes made. Patient feeling much better. Creatinine improved. Renal lundberg stable for discharge. Spoke to primary team.
[2025-04-06] MEDS: INSULIN LISPRO (AdmeLOG) 1 UNIT/0.01 ML UNIT SC (11:18)
--- NOTE | 2025-04-06 11:48 | ESDS_ITS ---
<Statement entered by Ashok Butterfield MD - 04/15/25 14:16> I reviewed above note and agree with findings and plans. I have also personally examined the patient with medicine team and went over assessment and plan with medical team including internal audit senior manager and resident physician. Planned Discharge Date 04/06/25 DS: Providers Provider Date of admission: 04/03/25 21:08 Primary care physician: Apolinar Tai MD Admitting Provider: Tomasz Mckeon DO Attending Provider on Admission: Ashok Butterfield MD Consults: 04/04/25 00:22 Referral Physical Therapy Routine Comment: Physician Instructions: Referral Respiratory Therapy Routine Comment: 04/05/25 08:15 Consult to Nephrology Routine Comment: Consulting Provider: Rylee Samayoa Attending Provider on DC: Kb Burnett Discharging Provider: Kb Burnett DS: Diagnosis Problem List Completed Was Problem List Reviewed/Reconciled?: Yes Hospital Course Hospital Course Hospital course: Summary: Christina Diaz a 64 year old female with a PMHx of COPD 2-3 L home oxygen, substance use disorder (methamphetamine and heroin), ESBL urinary tract infection, Atrial fibrillation with RVR (on Eliquis), HTN, CKD stage IIIB, and type II diabetes mellitus who presented to the ED 04/03 with shortness of breath, chest pain, and cough admitted overnight for acute hypoxic respiratory failure due to COPD exacerbation. ED Course: Patient arrived to ED via EMS with complaints of shortness of breath, cough, and chest pain. Associated symptoms included a headache localized to the occipital and temporal regions. Patient stated that she experienced cold-like symptoms three days prior. Patient denied fever or chills. Patient's fever spiked at 100.6. Pertinent labs include: WBC 10.6 MCV 77 Hgb 9.7 Hct 29.2 BUN 28 Cr 1.6 GFR 36 glucose 195 and urinalysis positive for 4+ bacteria positive nitrites and LE. CXR demonstrated findings consistent with COPD. Chest CTA was negative for PE. EKG demonstrated sinus tachycardia with possible old inferior infarct. Head CT demonstrated normal findings. Treatment provided includes: Acetaminophen 1000 mg x1, Albuterol 10 mg INH x1, fentanyl 50 mcg x1, meropenem 1000 mg, methylprednisolone 125 mg IVP x1, and 2L NS fluid resuscitation. Hospital Course: Patient was admitted for acute hypoxic respiratory failure due to COPD exace rbation and ESBL UTI. Patient demonstrated improvement in headache and did not display neurological deficits on examination. Patient demonstrated improvement in urinary symptoms, including dysuria and urgency. Patient maintained stable oxygen saturation on 2L NC throughout hospitalization. Pertinent labs include: MCV 78 Hgb 8.5 Hct 25.8 BUN 39 Cr 1.5 GFR 39 K 4.3 glucose 101. Renal US demonstrated mild bilateral hydronephrosis resulting from treated urinary tract infection. EKG demonstrated sinus bradycardia with no findings of old infarct. Treatment included: prednisone 40 mg PO QD fluticasone/salmoterol 1 puff BIDRT albuterol 2 puff INH Q4HRRT 2L NC oxygen azithromycin 500 mg PO QD guaifenesin 100 mg PO x1 to target respiratory symptoms and zosyn 3.375 g Q6HR to target urinary symptoms. Patient was restarted on home medications as needed. Patient will stay on doxycycline 100 mg BID for urinary tract infection. Patient will discontinued lisinopril 40 mg and start lisinopril 10 mg; follow-up with nephrology Dr. Chauhan. Patient is stable and progressing back to baseline. Instructions: -Doxycycline 100 mg BID for 6 more days -new Lisinopril 10 mg qday -STOP Lisinopril 40 mg qday -Please follow up with nephrology, Dr. Samayoa within one week. -Please follow up with your primary care provider within one week of discharge -If your symptoms worsen,please seek immediate medical attention and return to your nearest emergency room -If you do not have a primary care provider, you may follow up at the [facility] at [facility] [address], [place] [address], #Acute Kidney Injury on CKD #Acute on chronic COPD exacerbation #Possible bacterial community-acquired pneumonia #UTI #Atrial Fibrillation #Atrial Fibrillation w/RVR, Resolved #Headache #Neck pain #Chronic Kidney Disease, Stage IIIB #Iron Deficiency Anemia #T2DM, insulin dependent #Hypertension #Gastritis #Esophagitis #Opioid withdrawal symptoms #Incidental Pulmonary Nodules #Incidental Pancreatic Mass Case reviewed with attending Dr. Butterfield and senior resident Dr. Puga. Xiao Hogan MS-4 - The patient's plan was discussed with attending Dr.Obad Angelika Puga MD PGY2 Internal Medicine Time Spent with Patient Time attestation: Total time spent providing and/or coordinating discharge services: Time spent: Greater than 30 minutes Exam Vital Signs Temp Pulse Resp BP Pulse Ox O2 Del Method O2 Flow Rate 97.2 F 56 L 18 122/65 93 L Nasal Cannula 2 04/06/25 11:46 04/06/25 11:46 04/06/25 11:46 04/06/25 11:46 04/06/25 11:46 04/06/25 11:46 04/06/25 11:46 Discharge Plan Plan Patient Disposition: HOME (Self Care) Care Plan Goals: Instructions: -Doxycycline 100 mg BID for 6 more days -new Lisinopril 10 mg qday -STOP Lisinopril 40 mg qday -Please follow up with nephrology, Dr. Samayoa within one week. -Please follow up with your primary care provider within one week of discharge -If your symptoms worsen,please seek immediate medical attention and return to your nearest emergency room -If you do not have a primary care provider, you may follow up at the [facility] at [address] [place] [address] [address], [place] [address], Prescriptions/Referrals Prescriptions/Med Rec: New lisinopril 10 mg tablet 10 mg PO QDAY 30 Days Qty: 30 0RF doxycycline hyclate 100 mg capsule 100 mg PO BID 6 Days Qty: 12 0RF Continued albuterol sulfate 90 mcg/actuation HFA aerosol inhaler 1 puff inhalation QID PRN (Reason: shortness of breath or wheezing) Qty: 8.5 0RF aspirin 81 mg tablet,delayed release (DR/EC) 81 mg PO QDAY Qty: 30 0RF lactulose 10 gram/15 mL solution 10 g PO QDAY PRN (Reason: constipation) Qty: 3785 0RF lidocaine 5 % adhesive patch,medicated 1 patch topical QDAY Qty: 30 0RF Rx Instructions: leave on most painful area for up to 12 hrs methadone 10 mg/5 mL Solution 100 mg PO QDAY nitroglycerin 0.4 mg Tablet, Sublingual 0.4 mg BUCCAL Q5MIN PRN (Reason: Chest Pain) ondansetron 4 mg tablet,disintegrating 4 mg PO Q8H PRN (Reason: nausea and vomiting) Qty: 10 0RF meclizine 50 mg tablet 50 mg PO BID PRN (Reason: dizziness or vertigo) Qty: 10 0RF Proair Digihaler 90 mcg/actuation aero powdr breath act w/sensor 2 inh inhalation Q6H PRN (Reason: shortness of breath or wheezing) Qty: 1 0RF Eliquis 5 mg tablet 5 mg PO Q12H Patient Comments: TAKE ONE TABLET BY MOUTH TWICE DAILY FOR THE HEART insulin glargine [Basaglar KwikPen U-100 Insulin] 100 unit/mL (3 mL) insulin pen 26 unit subcut QAM furosemide [Lasix] 20 mg tablet 20 mg PO QAM 30 Days Qty: 30 0RF buspirone 5 mg tablet 5 mg PO QDAY spironolactone 50 mg tablet 50 mg PO QDAY metoprolol succinate 25 mg tablet extended release 24 hr 25 mg PO QDAY hydralazine 100 mg tablet 100 mg PO TID loratadine [Allergy Relief (loratadine)] 10 mg tablet 10 mg PO QDAY Patient Comments: TAKE ONE TABLET BY MOUTH EVERY DAY FOR ALLERGY clonidine HCl 0.1 mg tablet 0.1 mg PO BID Patient Comments: TAKE ONE TABLET BY MOUTH TWICE DAILY metolazone 5 mg tablet 5 mg PO QDAY amlodipine 5 mg tablet 10 mg PO QDAY Patient Comments: TAKE TWO TABLETS BY MOUTH EVERY DAY FOR BLOOD PRESSURE Trelegy Ellipta 200-62.5-25 mcg blister with device 1 inh inhalation QDAY Qty: 60 1RF Held lisinopril 40 mg tablet 40 mg PO QDAY Hold Instructions: Resume on 04/19/25. HOLD until she follows up PCP and then resume Lisinopril after THEO resolved. Discontinued methylprednisolone 4 mg tablets,dose pack 4 mg PO QAM Qty: 21 0RF Referrals: Apolinar Tai MD [Primary Care Provider] - Rylee Samayoa MD [Physician] - Patient/Caregiver Discharge Instructions Discharge Activity: activity as tolerated Education Materials: COPD Diabetes Print Language: Vietnamese Stand Alone Forms: Kaylynn Award Info., Patient Portal Info Letter Discharge Order Discharge Orders: Discharge (Routine); Ordered 04/06/25 Ordered By: Angelika Puga Quality Discharge Quality Measures VTE prophylaxis Attestestation MD Attestation 64-year-old female with multiple comorbidities including hypertension, hyperlipidemia, type 2 diabetes mellitus, COPD on 2-3 L supplemental oxygen at home, atrial fibrillation on Eliquis polysubstance use who presented to the ER with shortness of breath found to have a Toxic respiratory failure secondary to COPD exacerbation requiring increasing oxygen requirement. In addition, patient also noted to have THEO on CKD which we will continue to monitor closely. Overnight, patient oxygen requirement down trended to baseline however creatinine trended up for which we will monitor for another 24 hours. I reviewed above note and agree with findings and plans. I have also personally examined the patient with medicine team and went over assessment and plan with medical team including internal audit senior manager and resident physician.
== END 2025-04-06 13:17 | disposition home or self-care (01) | DRG 463 ==
LOC: SERX 18:55 → SERHOLD 21:16 → S3NX 23:55
PROVIDERS: Student in an Organized Health Care Education/Training Program; Admitting Provider Student in an Organized Health Care Education/Training Program; Emergency Provider Emergency Medicine; PCP Family Medicine; Visit Provider Internal Medicine
DX: N13.6 Pyonephrosis (principal); J44.0 Chronic obstructive pulmonary disease with (acute) lower respiratory infection; M54.2 Cervicalgia; J44.1 Chronic obstructive pulmonary disease with (acute) exacerbation; G44.86 Cervicogenic headache; Z86.73 Personal history of transient ischemic attack (TIA), and cerebral infarction without residual deficits; I48.91 Unspecified atrial fibrillation; Z79.01 Long term (current) use of anticoagulants; Z87.891 Personal history of nicotine dependence; Z79.4 Long term (current) use of insulin; Z86.19 Personal history of other infectious and parasitic diseases; J15.9 Unspecified bacterial pneumonia; D50.9 Iron deficiency anemia, unspecified; F11.23 Opioid dependence with withdrawal; E11.65 Type 2 diabetes mellitus with hyperglycemia; I50.9 Heart failure, unspecified; F15.129 Other stimulant abuse with intoxication, unspecified; B96.20 Unspecified Escherichia coli [E. coli] as the cause of diseases classified elsewhere; E11.22 Type 2 diabetes mellitus with diabetic chronic kidney disease; E78.5 Hyperlipidemia, unspecified; I13.0 Hypertensive heart and chronic kidney disease with heart failure and stage 1 through stage 4 chronic kidney disease, or unspecified chronic kidney disease; J18.9 Pneumonia, unspecified organism; J96.01 Acute respiratory failure with hypoxia; K86.9 Disease of pancreas, unspecified; N17.9 Acute kidney failure, unspecified; N18.32 Chronic kidney disease, stage 3b; T50.8X5A Adverse effect of diagnostic agents, initial encounter; Z16.12 Extended spectrum beta lactamase (ESBL) resistance; N14.11 Contrast-induced nephropathy; Z79.899 Other long term (current) drug therapy; Z87.440 Personal history of urinary (tract) infections; Z99.81 Dependence on supplemental oxygen; Z88.0 Allergy status to penicillin; Z88.5 Allergy status to narcotic agent; Z88.8 Allergy status to other drugs, medicaments and biological substances; J43.9 Emphysema, unspecified; K20.90 Esophagitis, unspecified without bleeding; K29.70 Gastritis, unspecified, without bleeding
CPT/HCPCS: 36415; 70450; 71045; 71275; 76770; 80053; 80069; 80307; 81001; 82570; 82728; 82803; 83036; 83540; 83550; 83605; 83690; 83735; 83880; 84100; 84145; 84156; 84300; 84484; 85025; 85046; 85730; 86331; 86635; 87040; 87077; 87086; 87186; 87400; 87634; 87651; 87811; 93005; 93225; 94640; 94644; 94664; 96361; 96365; 96372; 96375; 97162; A4649; J1644; J1815; J1885; J2185; J2405; J2543; J2919; J3010; J3490; J7030; J7050; J7120; J7512; Q9967; A9270

== ENCOUNTER 2025-04-13 15:53 | Emergency (ER) | payer MEDICAID, SELFPAY ==
[2025-04-13 15:53] VITALS: BP 115/66; PULSE 119; RESP 19; TEMP 37.4; O2SAT 96
[2025-04-13 16:24] VITALS: PULSE 118; RESP 24; O2SAT 88; BMI 27.4
--- NOTE | 2025-04-13 16:44 | XR_ITS ---
Examination: AP chest single view Technique one AP portable semiupright chest single view Date and time: April 13, 2025 at 1658 hours Comparison April 03, 2025 INDICATIONS: Shortness of the chest pain today. FINDINGS: No significant cardiac enlargement. Moderate vascular congestion. Accentuation of basilar bronchovascular markings. No lobar pneumonia or pulmonary edema. IMPRESSION: Moderate vascular congestion Basilar bronchitis pattern
--- NOTE | 2025-04-13 16:44 | EKG_ITS ---
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
--- NOTE | 2025-04-13 16:46 | PD.EDSOB ---
ED SOB =RME/HPI General Chief Complaint: Shortness of Breath/Dyspnea Stated Complaint: sob Time Seen by Provider: 04/13/25 16:39 Arrival date/time: 04/13/25 15:53 RME / HPI RME / HPI Narrative: 64-year-old female patient with significant history of COPD, hypertension diabetes mellitus, on Eliquis, congestive heart failure, was brought in by EMS for evaluation regarding worsening shortness of breath. Patient has been having shortness of breath cough, since yesterday, getting worse, when the EMS arrived patient was satting 88% despite patient using her COPD medications inhalers and nebulization. She is totally on oxygen 2 L continuous. Patient also complained of muscle spasm to the bilateral lower extremity, it comes and goes. Severity moderate. Patient denies any chest pain denies any fever. Was given 2 rounds of breathing treatment on the way to the emergency room. Related Data Home Medications ?Medication ?Instructions ?Recorded ?Confirmed methadone 10 mg/5 mL oral solution 100 mg PO QDAY 02/07/24 04/04/25 nitroglycerin 0.4 mg sublingual 0.4 mg buccal Q5MIN PRN Chest Pain 02/07/24 04/04/25 tablet apixaban 5 mg tablet (Eliquis) 5 mg PO Q12H 01/02/25 04/04/25 insulin glargine 100 unit/mL (3 26 unit subcut QAM 01/03/25 04/04/25 mL) subcutaneous pen (Basaglar KwikPen U-100 Insulin) amlodipine 5 mg tablet 10 mg PO QDAY 04/04/25 04/04/25 buspirone 5 mg tablet 5 mg PO QDAY 04/04/25 04/04/25 clonidine HCl 0.1 mg tablet 0.1 mg PO BID 04/04/25 04/04/25 hydralazine 100 mg tablet 100 mg PO TID 04/04/25 04/04/25 lisinopril 40 mg tablet 40 mg PO QDAY 04/04/25 04/04/25 Held on 04/06/25. Instructions: Resume on 04/19/25. HOLD until she follows up PCP and then resume Lisinopril after THEO resolved. loratadine 10 mg tablet (Allergy 10 mg PO QDAY 04/04/25 04/04/25 Relief (loratadine)) metolazone 5 mg tablet 5 mg PO QDAY 04/04/25 04/04/25 metoprolol succinate 25 mg 25 mg PO QDAY 04/04/25 04/04/25 tablet,extended release 24 hr spironolactone 50 mg tablet 50 mg PO QDAY 04/04/25 04/04/25 Previous Rx's ?Medication ?Instructions ?Recorded albuterol sulfate 90 mcg/actuation 1 puff inhalation QID PRN 08/06/24 aerosol inhaler shortness of breath or wheezing #8.5 grams aspirin 81 mg tablet,delayed 81 mg PO QDAY #30 tabs 08/06/24 release lactulose 10 gram/15 mL oral 10 g (15 mL) PO QDAY PRN 08/06/24 solution constipation #3,785 mL lidocaine 5 % topical patch 1 patch topical QDAY #30 ea 08/06/24 meclizine 50 mg tablet 50 mg PO BID PRN dizziness or 10/27/24 vertigo #10 tabs ondansetron 4 mg disintegrating 4 mg PO Q8H PRN nausea and 10/27/24 tablet vomiting #10 tabs albuterol sulfate 90 mcg/actuation 2 inh inhalation Q6H PRN shortness 11/01/24 breath activated powder of breath or wheezing #1 ea inhaler,sensor (Proair Digihaler) furosemide 20 mg tablet (Lasix) 20 mg PO QAM 30 days #30 tabs 01/08/25 fluticasone fur. 200 mcg-umeclid 1 inh inhalation QDAY #60 ea 04/06/25 62.5 mcg-vilant 25 mcg inhalat.powder (Trelegy Ellipta) lisinopril 10 mg tablet 10 mg PO QDAY 1 month #30 tabs 04/06/25 diazepam 5 mg tablet (Valium) 5 mg PO BID PRN muscle spasm #14 04/13/25 tabs ipratropium 0.5 mg-albuterol 3 mg 3 ml inhalation Q8H PRN shortness 04/13/25 (2.5 mg base)/3 mL nebulization of breath #90 mL soln prednisone 50 mg tablet 50 mg PO QDAY #7 tabs 04/13/25 Allergies Allergy/AdvReac Type Severity Reaction Status Date / Time codeine Allergy Severe RASH Verified 03/21/25 22:27 diphenhydramine HCl Allergy Severe Hives Verified 03/21/25 22:27 egg Allergy Severe Rash Verified 03/21/25 22:27 Penicillins Allergy Severe SWELLING, Verified 03/21/25 22:27 RESP DISTRESS pentazocine (From [place]) Allergy Severe Hives Verified 03/21/25 22:27 Review of Systems Review of Systems Narrative Review of Systems: Review of system reviewed and within normal limits except mentioned in HPI ED Exam Narrative Physical exam: VITAL SIGNS: Reviewed. GENERAL APPEARANCE: Alert and interactive, follows commands, no acute distress, HEAD AND FACE: Non-traumatic. ENT: PERRL, pink conjunctivitis, eyelid no trauma, Mucous membrane moist. NECK: Supple, nontender, no nuchal rigidity. CHEST: No tenderness, no crepitus, no paradoxical + bilateral wheezing, no ronchi, no stridor, decreased breath sounds bilaterally. HEART: Regular rate, regular rhythm, no murmur, no gallops. ABDOMEN: Soft, positive bowel sounds, nondistended, no guarding, nontender, no rebound, no masses, RECTAL: Deferred. GENITAL: Deferred. NEUROLOGICAL: Gross motor function intact sensory function intact, Appropriate for age. MUSCULOSKELETAL: low back nontender, full range of motion. EXTREMITIES: Nontender, full range of motion. SKIN: Color pink, dry, no rash, no lacerations, no abrasions, no contusions. LYMPHATICS: Deferred. Course Quality Measures none Orders Category Date Time Status EKG (ED ONLY) *Do not use* NOW Care 04/13/25 16:44 Completed EKG (ED Only) Stat Exams 04/13/25 16:44 Draft XR chest 1V Stat Exams 04/13/25 16:44 Completed B-Type Natriuretic Peptide Stat Lab 04/13/25 17:36 Completed Blood Culture (Lab) Stat Lab 04/13/25 17:30 Received C-Reactive Protein Stat Lab 04/13/25 17:36 Completed CBC Stat Lab 04/13/25 17:36 Completed Comprehensive Metabolic Panel Stat Lab 04/13/25 17:36 Completed Creatine Kinase Stat Lab 04/13/25 17:36 Completed Lactate (Lactic Acid) Stat Lab 04/13/25 17:36 Completed Partial Thromboplastin Time Stat Lab 04/13/25 17:36 Completed Procalcitonin Stat Lab 04/13/25 17:36 Completed Prothrombin Time with INR Stat Lab 04/13/25 17:36 Completed Troponin I Stat Lab 04/13/25 17:36 Completed VBG [Venous Blood Gas] Stat Lab 04/13/25 17:36 Completed ALBUTEROL RT 0.5ml [Proventil Rt 0.5ml] Med 04/13/25 16:44 Discontinued 5 mg INH X1 ONE Albuterol/Ipratr Rt Blanca [Duoneb Rt Blanca] Med 04/13/25 16:44 Discontinued 6 ml INH X1 ONE Dexamethasone Inj [Decadron Inj] 15 mg Med 04/13/25 16:44 Discontinued Sodium Chloride 0.9% [Ns] 100 ml IV X1 Diazepam Inj [Valium Inj] Med 04/13/25 16:44 Discontinued 5 mg IVP X1 ONE Levofloxacin [Levaquin] Med 04/13/25 19:16 Discontinued 500 mg PO X1 ONE Sodium Chloride Rt Blanca 0.9% [NS Rt Blanca 0.9%] Med 04/13/25 16:44 Active 3 ml INH PRN PRN Vital Signs Vital signs: Vital Signs Temperature 99.3 F 04/13/25 15:53 Pulse Rate 119 H 04/13/25 15:53 Respiratory Rate 19 04/13/25 15:53 Blood Pressure 115/66 04/13/25 15:53 Pulse Oximetry (%) 96 04/13/25 15:53 Oxygen Delivery Method Nasal Cannula 04/13/25 15:53 Oxygen Flow Rate 6 04/13/25 15:53 Shortness of Breath / Dyspnea MDM Narrative MDM Narrative:: 64-year-old female patient with significant history of COPD, hypertension diabetes mellitus, on Eliquis, congestive heart failure, was brought in by EMS for evaluation regarding worsening shortness of breath. Patient has been having shortness of breath cough, since yesterday, getting worse, when the EMS arrived patient was satting 88% despite patient using her COPD medications inhalers and nebulization. She is totally on oxygen 2 L continuous. Patient also complained of muscle spasm to the bilateral lower extremity, it comes and goes. Severity moderate. Patient denies any chest pain denies any fever. Was given 2 rounds of breathing treatment on the way to the emergency room Chest x-ray came back with no sign of pneumonia. Patient's laboratory workup significant for leukocytosis 15.5. ABG came back unremarkable. CMP creatinine of 2.0, BUN of 26, patient's baseline is on the same level. Prior creatinine EKG showed normal sinus rhythm, ventricular rate of 97 bpm, no ST segment elevation depression noted. Patient received diazepam, Decadron, albuterol and DuoNeb breathing treatment with significant progress of symptoms. Satting 93% on 2 L. Patient is using 2 L at home also. Patient was also given a dose of Levaquin in the ED. Patient data External records reviewed:: None Clinical information provided by:: none Social determinants that could affect healthcare access:: none Patient has the following chronic illnesses:: COPD How is presenting disease/condition affected by chronic disease/condition?: exacerbated by Evaluation data The following diagnostics were reviewed and interpreted by me:: lab results, radiology exam(s) and EKG tracing(s) Lab and/or radiology exams considered but not ordered:: None Interpretation Summary: See results MDM Medications / Prescriptions Medications or Prescriptions considered but not ordered:: None Medication administrations:: Medication Administration History Sodium Chloride (Sodium Chloride Rt Blanca 0.9% 3 Ml Nebu) 3 ml INH PRN PRN PRN Reason: SOLN Stop: 05/13/25 16:43 Discontinued Medications Albuterol (Albuterol Rt 2.5 Mg/0.5 Ml Nebu) 5 mg INH X1 ONE Stop: 04/13/25 16:45 Last Admin: 04/13/25 16:53 Dose: 5 mg Documented By: TJ Albuterol/Ipratropium (Albuterol/Ipratropium (Duoneb) Rt Blanca 3 Ml Nebu) 6 ml INH X1 ONE Stop: 04/13/25 16:45 Last Admin: 04/13/25 16:53 Dose: 6 ml Documented By: TJ Diazepam (Diazepam Inj 5 Mg/Ml Vial 2 Ml) 5 mg IVP X1 ONE Stop: 04/13/25 16:45 Last Admin: 04/13/25 18:29 Dose: 5 mg Documented By: DAWSON Dexamethasone Sodium Phosphate (15 mg/ Sodium Chloride) 101.5 mls @ 101.5 mls/hr IV X1 ONE Stop: 04/13/25 16:45 Last Infusion: 04/13/25 20:03 Dose: Infused Documented By: Admin: 04/13/25 18:29 Dose: 101.5 mls/hr Documented By: DAWSON Levofloxacin (Levofloxacin 250 Mg Tablet) 500 mg PO X1 ONE Stop: 04/13/25 19:17 Last Admin: 04/13/25 20:02 Dose: 500 mg Documented By: BC Decadron, diazepam, DuoNeb, albuterol, and Levaquin. Normal recurrence of muscle spasm after patient received Valium. Consultations Consultation(s) initiated? (list below): No Diagnosis Shortness of Breath Differential Diagnosis: acute exacerbation of chronic obstructive airways disease, congestive heart failure and community acquired pneumonia Most likely diagnosis given after review of the tests above:: Acute exacerbation of COPD, muscle spasm Admission Indicated Admission indicated?: not indicated Explain why admission is indicated or not indicated:: Stable Admission Request Was there a request for admission?: No Disposition Plan Disposition Plan: Discharge Discharge Attestation Discharge Attestation: The patient was given an opportunity to ask questions and understood the discharge instructions. Discharge instructions specifically effects, indications for sooner follow up or return to the emergency department, and the expected course of current diagnosis. Patient condition: Stable Discharge Plan Plan Patient Disposition: HOME (Self Care) Discharge Disposition comment: Stable Prescriptions/Referrals Prescriptions/Med Rec: New prednisone 50 mg tablet 50 mg PO QDAY Qty: 7 0RF diazepam [Valium] 5 mg tablet 5 mg PO BID PRN (Reason: muscle spasm) Qty: 14 0RF ipratropium-albuterol 0.5 mg-3 mg(2.5 mg base)/3 mL solution for nebulization 3 ml inhalation Q8H PRN (Reason: shortness of breath) Qty: 90 0RF No Action albuterol sulfate 90 mcg/actuation HFA aerosol inhaler 1 puff inhalation QID PRN (Reason: shortness of breath or wheezing) Qty: 8.5 0RF aspirin 81 mg tablet,delayed release (DR/EC) 81 mg PO QDAY Qty: 30 0RF lactulose 10 gram/15 mL solution 10 g PO QDAY PRN (Reason: constipation) Qty: 3785 0RF lidocaine 5 % adhesive patch,medicated 1 patch topical QDAY Qty: 30 0RF Rx Instructions: leave on most painful area for up to 12 hrs methadone 10 mg/5 mL Solution 100 mg PO QDAY nitroglycerin 0.4 mg Tablet, Sublingual 0.4 mg BUCCAL Q5MIN PRN (Reason: Chest Pain) ondansetron 4 mg tablet,disintegrating 4 mg PO Q8H PRN (Reason: nausea and vomiting) Qty: 10 0RF meclizine 50 mg tablet 50 mg PO BID PRN (Reason: dizziness or vertigo) Qty: 10 0RF Proair Digihaler 90 mcg/actuation aero powdr breath act w/sensor 2 inh inhalation Q6H PRN (Reason: shortness of breath or wheezing) Qty: 1 0RF Eliquis 5 mg tablet 5 mg PO Q12H Patient Comments: TAKE ONE TABLET BY MOUTH TWICE DAILY FOR THE HEART insulin glargine [Basaglar KwikPen U-100 Insulin] 100 unit/mL (3 mL) insulin pen 26 unit subcut QAM furosemide [Lasix] 20 mg tablet 20 mg PO QAM 30 Days Qty: 30 0RF buspirone 5 mg tablet 5 mg PO QDAY spironolactone 50 mg tablet 50 mg PO QDAY metoprolol succinate 25 mg tablet extended release 24 hr 25 mg PO QDAY hydralazine 100 mg tablet 100 mg PO TID loratadine [Allergy Relief (loratadine)] 10 mg tablet 10 mg PO QDAY Patient Comments: TAKE ONE TABLET BY MOUTH EVERY DAY FOR ALLERGY lisinopril 40 mg tablet 40 mg PO QDAY clonidine HCl 0.1 mg tablet 0.1 mg PO BID Patient Comments: TAKE ONE TABLET BY MOUTH TWICE DAILY metolazone 5 mg tablet 5 mg PO QDAY amlodipine 5 mg tablet 10 mg PO QDAY Patient Comments: TAKE TWO TABLETS BY MOUTH EVERY DAY FOR BLOOD PRESSURE lisinopril 10 mg tablet 10 mg PO QDAY 30 Days Qty: 30 0RF Trelegy Ellipta 200-62.5-25 mcg blister with device 1 inh inhalation QDAY Qty: 60 1RF Referrals: No Primary/Family,Physician [Primary Care Provider] - In 1 week Problem List Clinical Impression: Acute exacerbation of chronic obstructive pulmonary disease (COPD), Muscle spasm Patient/Caregiver Discharge Instructions Discharge Activity: activity as tolerated Education Materials: COPD Meds Additional Instructions: Thank you for the opportunity for serving you today. You are stable for discharged . You are advised to: Follow-up with your PCP in 1 to 2 days Return to ED for worsening of symptoms Increase oral fluids Take medication as prescribed Continue taking your COPD medications Print Language: Armenian Stand Alone Forms: Kaylynn Award Info., Patient Portal Info Letter PA/ASSEMBLY ASSOCIATE Supervising Physician PA/ASSEMBLY ASSOCIATE Supervising Physician: MD Margaret
[2025-04-13 16:53] VITALS: PULSE 115
[2025-04-13] MEDS: ALBUTEROL/IPRATROPIUM (Duoneb) RT SOL 3 ML NEBU 6 ML INH (16:53)
[2025-04-13] MEDS: ALBUTEROL RT 2.5 MG/0.5 ML NEBU 5 MG INH (16:53)
[2025-04-13 16:54] VITALS: PULSE 104; RESP 18; O2SAT 92
[2025-04-13 17:41] LABS: Base Excess, Venous 1 (-3-3); Lactate (Lactic Acid) 1.0 mMol/L (0.4-2.0); O2 Saturation, Venous 87 % (96-97); PCO2, Venous 39 mmHg (36-56); PO2, Venous 49 mmHg (15-58); pH, Venous 7.43 (7.33-7.66)
[2025-04-13 17:52] LABS: Basophils # (Auto) 0.0 Thou/mm3 (0.0-0.2); Basophils % (Auto) 0 % (0-2.5); Eosinophils # (Auto) 0.2 Thou/mm3 (0.0-0.5); Eosinophils % (Auto) 1 % (0-10); Hematocrit 27.7 % (36.0-46.0); Hemoglobin 8.9 g/dL (12.0-16.0); Immature Granulocytes Auto 0.10 Thou/mm3 (0.00-0.00); Lymphocytes # (Auto) 1.8 Thou/mm3 (1.0-4.8); Lymphocytes % (Auto) 12 % (10-50); Mean Corpuscular HGB Conc 32.1 g/dl (31.0-37.0); Mean Corpuscular Hemoglobin 25.6 pg (25.0-35.0); Mean Corpuscular Volume 80 fL (80-100); Monocytes # (Auto) 1.0 Thou/mm3 (0.0-0.8); Monocytes % (Auto) 7 % (0-12); Neutrophils # (Auto) 12.3 Thou/mm3 (1.8-7.7); Neutrophils % (Auto) 80 % (37-80); Nucleated Red Blood Cell # 0.00 Thou/mm3 (0.00-0.00); Nucleated Red Blood Cell % 0 /100 WBC (0); Platelet Count 232 Thou/mm3 (140-440); RDW Standard Deviation 40.8 fL (36.4-46.3); Red Blood Count 3.48 Miln/mm3 (4.00-5.20); White Blood Count 15.5 Thou/mm3 (3.6-11.0)
[2025-04-13 17:59] LABS: INR 1.0 (0.9-1.3); Partial Thromboplastin Time 27.3 Seconds (22.0-36.0); Prothrombin Time 11.4 Seconds (9.0-12.2)
--- NOTE | 2025-04-13 18:08 | PC.NURSE ---
MULTIPLE RNS HAVE ATTEMPTED TO GET IV ACCESS NO ACCESS YET.
[2025-04-13 18:11] LABS: Alanine Aminotransferase 14 U/L (10-49); Albumin, Serum 3.8 gm/dL (3.4-4.8); Albumin/Globulin Ratio 1.5 (1.2-2.2); Alkaline Phosphatase 57 U/L (46-116); Anion Gap 11 (7-16); Aspartate Amino Transferase 20 U/L (0-34); BUN/Creatinine Ratio 13 Ratio (12-20); Bilirubin,Total 0.4 mg/dL (0.3-1.2); Blood Urea Nitrogen 26 mg/dL (9-23); C-Reactive Protein < 0.5 mg/dL (0.0-0.9); Calcium 9.4 mg/dL (8.3-10.6); Calcium (Corrected) 9.6 mg/dL (8.5-10.1); Carbon Dioxide 24.6 mMol/L (20.0-31.0); Chloride 106 mMol/L (98-107); Creatinine (Component) 2.0 mg/dL (0.6-1.3); Estimated Creatinine Clearance 29.2 mL/min (>60); Globulin 2.5 gm/dL (2.3-3.5); Glucose 175 mg/dL (74-106); Osmolality,Calculated 291 (275-295); Potassium 3.9 mMol/L (3.4-5.1); Procalcitonin 0.10 ng/ml (0.0-0.49); Sodium 142 mMol/L (136-145); Total Protein 6.3 gm/dL (5.7-8.2); Troponin I < 0.020 ng/mL (0.0-0.045); eGFR 28 See Note
[2025-04-13] MEDS: DIAZEPAM INJ 5 MG/ML VIAL 2 ML IVP (18:29)
[2025-04-13] MEDS: DEXAMETHASONE IV (18:29)
[2025-04-13] MEDS: SODIUM CHLORIDE 0.9% IV (18:29)
[2025-04-13 18:31] LABS: B-Type Natriuretic Peptide 34 pg/mL (0-100)
[2025-04-13 18:38] VITALS: BP 104/52; PULSE 107; RESP 16; TEMP 37.1; O2SAT 92
[2025-04-13 19:04] LABS: Creatine Kinase 101 U/L (34-171)
[2025-04-13] MEDS: LEVOFLOXACIN 250 MG TABLET 500 MG PO (20:02)
[2025-04-13 20:28] VITALS: BP 117/54; PULSE 96; RESP 22; TEMP 36.9; O2SAT 94
== END 2025-04-13 20:44 | disposition home or self-care (01) ==
PROVIDERS: Nurse Practitioner Family; Emergency Provider Family Medicine
DX: J44.1 Chronic obstructive pulmonary disease with (acute) exacerbation (principal); M62.838 Other muscle spasm; I11.0 Hypertensive heart disease with heart failure; I50.9 Heart failure, unspecified; Z79.01 Long term (current) use of anticoagulants
CPT/HCPCS: 36415; 71045; 80053; 82550; 82803; 83605; 83880; 84145; 84484; 85025; 85610; 85730; 86140; 87040; 93005; 94644; 96365; 96366; 96375; 99284; A9270; J1100; J3360; J7050

== ENCOUNTER 2025-04-18 20:25 | Inpatient (IN) | payer MEDICAID, SELFPAY ==
[2025-04-18] VITALS (8 sets, daily range): BP systolic 137–163; BP diastolic 78–91; PULSE 88–119; RESP 17–20; TEMP 36.7–37.4; O2SAT 95–100; BMI 27.9
--- NOTE | 2025-04-18 20:40 | EDNOTE_ITS ---
ED SOB =RME/HPI General Chief Complaint: Shortness of Breath/Dyspnea Stated Complaint: SOB Time Seen by Provider: 04/18/25 20:32 Arrival date/time: 04/18/25 20:25 RME / HPI RME / HPI Narrative: Dr. Gamino?s Main ED Evaluation: 64yo female with a history of COPD 2-3 L home oxygen, aFib (on Eliquis), HTN, CKD, DMII BIBA from home presents to the ED for a chief complaint of shortness of breath x yesterday. Patient states her shortness of breath significantly worsened 1 hour [employer]. Patient reports associated chest heaviness. EMS administered 3 nitroglycerin sublingual and 1.5 inches of nitropaste en route. She is a tobacco smoker. No cough, fever, chills, or any other associated symptoms. Related Data Home Medications ?Medication ?Instructions ?Recorded ?Confirmed methadone 10 mg/5 mL oral solution 100 mg PO QDAY 01/2404/04/25 nitroglycerin 0.4 mg sublingual 0.4 mg buccal Q5MIN AZ N Chest Pain 02/07/24 04/04/25 tablet apixaban 5 mg tablet (Eliquis) 5 mg PO Q12H 01/02/25 0 04/04/25 insulin glargine 100 unit/mL (3 26 unit subcut QAM 07/2004/04/25 mL) subcutaneous pen (Basaglar KwikPen U-100 Insulin) amlodipine 5 mg tablet 10 mg PO QDAY 04/04/2504/04 buspirone 5 mg tablet 5 mg PO QDAY 04/04/25 clonidine HCl 0.1 mg tablet 0.1 mg PO BID 04/04/2507/20 hydralazine 100 mg tablet 100 mg PO TID 04/04/2504/04 lisinopril 40 mg tablet 40 mg PO QDAY 04/04/2504/04 Held on 04/06/25. Instructions: Resume on 04/19/25. HOLD until she follows up PCP and then resume Lisinopril after THEO resolved. loratadine 10 mg tablet (Allergy 10 mg PO QDAY 5 04/04/25 Relief (loratadine)) metolazone 5 mg tablet 5 mg PO QDAY 04/04/25 metoprolol succinate 25 mg 25 mg PO QDAY 04/04/2503/26 tablet,extended release 24 hr spironolactone 50 mg tablet 50 mg PO QDAY 04/04/2507/20 Previous Rx's ?Medication ?Instructions ?Recorded albuterol sulfate 90 mcg/actuation 1 puff inhalation Q ID PRN 08/06/24 aerosol inhaler shortness of breath or wheez ing #8.5 grams aspirin 81 mg tablet,delayed 81 mg PO QDAY #30 tabs release lactulose 10 gram/15 mL oral 10 g (15 mL) PO QDAY PRN 08/06/24 solution constipation #3,785 mL lidocaine 5 % topical patch 1 patch topical QDAY #30 e a 08/06/24 meclizine 50 mg tablet 50 mg PO BID PRN dizziness o r 10/27/24 vertigo #10 tabs ondansetron 4 mg disintegrating 4 mg PO Q8H PRN nausea and 10/27/24 tablet vomiting #10 tabs albuterol sulfate 90 mcg/actuation 2 inh inhalation Q6 H PRN shortness 11/01/24 breath activated powder of breath or wheezing #1 ea inhaler,sensor (Proair Digihaler) furosemide 20 mg tablet (Lasix) 20 mg PO QAM 30 days # 30 tabs 01/08/25 fluticasone fur. 200 mcg-umeclid 1 inh inhalation QDAY #60 ea 04/06/25 62.5 mcg-vilant 25 mcg inhalat.powder (Trelegy Ellipta) lisinopril 10 mg tablet 10 mg PO QDAY 1 month #30 ta bs 04/06/25 diazepam 5 mg tablet (Valium) 5 mg PO BID PRN muscle s pasm #14 04/13/25 tabs ipratropium 0.5 mg-albuterol 3 mg 3 ml inhalation Q8H PRN shortness 04/13/25 (2.5 mg base)/3 mL nebulization of breath #90 mL soln prednisone 50 mg tablet 50 mg PO QDAY #7 tabs Allergies Allergy/AdvReac Type Severity Reaction Status Date / Time codeine Allergy Severe RASH Verified 04/18/25 20:36 diphenhydramine HCl Allergy Severe Hives Verified 04/18/25 20:36 egg Allergy Severe Rash Verified 04/18/25 20:36 Penicillins Allergy Severe SWELLING, Verified 04/18/25 20:36 RESP DISTRESS pentazocine (From Talwin) Allergy Severe Hives Verified 04/18/25 20:36 Review of Systems Review of Systems Systems Reviewed: All systems reviewed, normal except as documented ED Exam Narrative Physical exam: Generally patient is dyspneic and tachypneic heart regular rate and rhythm without rubs or gallops lungs are distant breath sounds bilaterally with expiratory wheezes with fair to good air exchange abdomen soft bowel sounds present no send nontender extremities show no peripheral edema skin is cool pale and dry. Neurologic exam no focal motor or sensory deficits cranial nerves II through XII grossly intact Course Course Course Narrative: CXR is ordered for determining the etiology of shortness of breath. Quality Measures none Orders Category Date Time Status EKG (ED ONLY) *Do not use* NOW Care 04/18/25 20:41 Completed IV [Insert IV] STAT Care 04/18/25 20:45 Active EKG (ED Only) Stat Exams 04/18/25 20:41 Draft XR chest 1V portable Stat Exams 04/18/25 20:41 Completed BNP [B-Type Natriuretic Peptide] Stat Lab 04/18/25 20:40 Completed CBC Stat Lab 04/18/25 20:40 Completed CMP [Comprehensive Metabolic Panel] Stat Lab 04/18/25 20:40 Completed Troponin I Stat Lab 04/18/25 20:40 Completed VBG [Venous Blood Gas] Stat Lab 04/18/25 21:48 Ordered ALBUTEROL RT 0.5ml [Proventil Rt 0.5ml] Med 04/18/25 21:00 Discontinued 10 mg INH X1 ONE Azithromycin Inj [Zithromax Inj] 500 mg Med 04/18/25 21:48 Active Sodium Chloride 0.9% 250 ml [Ns] 250 ml IV X1 Ipratropium [place] Rt [place] [Atrovent Rt Blanca] Med 04/18/25 20:41 Discontinued 1 mg INH X1 ONE MethylPREDNISolone.* [SoluMEDROL Inj] Med 04/18/25 20:41 Discontinued 125 mg IVP X1 ONE cefTRIAXone/D5w 1gm IV premix [Rocephin/D5w 1gm IV Med 04/18/25 21:47 Ordered premix] 1 gm in 50 ml IV X1 Vital Signs Vital signs: Vital Signs Temperature 98.1 F 04/18/25 20:28 Pulse Rate 119 H 04/18/25 20:28 Respiratory Rate 17 04/18/25 20:28 Blood Pressure 137/82 H 04/18/25 20:28 Pulse Oximetry (%) 97 04/18/25 20:28 Oxygen Delivery Method Nasal Cannula 04/18/25 20:28 Shortness of Breath / Dyspnea MDM Narrative MDM Narrative:: Scribe Attestation: 04/18/25 - Modesta Fuller am scribing for and in the presence of Dr. Gamino. Patient received sublingual nitroglycerin by paramedics for presumed CHF. Looking at the patient's chart I do not see an obvious documented history of CHF however. Here in the emergency room the patient received albuterol 10 mg and Atrovent 1 mg Med-Neb treatment over 1 hour as well as Solu-Medrol 125 mg IV. Patient is oxygen dependent at home and continues to smoke cigarettes. She does have a drug abuse history as well according to past medical records which I reviewed. I interpreted all labs. Patient has a leukocytosis of 25,700 which is higher than normal. Patient was given Rocephin 1 g IV and azithromycin 500 mg IV. I do not believe this patient to be septic. BNP is slightly elevated at 116. Troponin is not elevated. EKG is nonischemic done at 8:46 PM and shows sinus tachycardia at a rate of 100 without ischemic change or ectopy. The patient's leukocytosis may be due to the fact that the patient is oftentimes placed on steroid. Last hospitalization here was 12 days ago. I discussed this case with the hospitalist and the patient will be admitted to the hospital for further treatment and evaluation for her COPD exacerbation with leukocytosis possibly secondary to respiratory tract infection and/or her continued smoking history. Patient data External records reviewed:: [facility] previous records (Per chart review, patient was seen here on 04/13/25 for COPD exacerbation.) and EMS form Clinical information provided by:: patient and EMS Social determinants that could affect healthcare access:: substance use (tobacco use) Patient has the following chronic illnesses:: COPD 2-3 L home oxygen, ESBL urinary tract infection, aFib (on Eliquis), HTN, CKD, DMII How is presenting disease/condition affected by chronic disease/condition?: exacerbated by Evaluation data The following diagnostics were reviewed and interpreted by me:: lab results, radiology exam(s) and EKG tracing(s) Lab and/or radiology exams considered but not ordered:: none Interpretation Summary: [facility] Report Signed Patient: DISHA ABRAHAM. Record#: [id number] Birthdate: 1960 Age/Sex: 64 / F Location: [facility] Attending Dr: Ordering Physician: Mina Gamino DO Date of Service: 04/18/25 Procedure(s): XR chest 1V portable Accession Number(s): [id number] cc: Apolinar Tai MD; Acosta Kumari MD; Mina Gamino DO~ Examination: AP chest single view Bony V portable upright chest single view Date and time: April 13, 2025 1658 hours INDICATIONS: Chest pain and shortness of breath beginning today. FINDINGS: Normal heart size Lungs are clear. The osseous structures are intact IMPRESSION: No active disease Dictated By: Acosta Kumari MD Signed By: <Electronically signed by Acosta Kumari MD in OV> 04/18/252101 Medications / Prescriptions Medications or Prescriptions considered but not ordered:: none Medication administrations:: Medication Administration History Ceftriaxone Sodium/Dextrose (Rocephin/D5w 1gm Iv Premix) 1 gm in 50 mls @ 100 mls/hr IV X1 ONE Stop: 04/18/25 22:16 Azithromycin 500 mg/ Sodium (Chloride) 250 mls @ 250 mls/hr IV X1 ONE Stop: 04/18/25 22:47 Discontinued Medications Albuterol (Albuterol Rt 2.5 Mg/0.5 Ml Nebu) 10 mg INH X1 ONE Stop: 04/18/25 21:01 Last Admin: 04/18/25 20:55 Dose: 10 mg Documented By: PAR Ipratropium [place] (Ipratropium Rt 0.5 Mg/ 2.5 Ml Nebu) 1 mg INH X1 ONE Stop: 04/18/25 20:42 Last Admin: 04/18/25 20:55 Dose: 1 mg Documented By: PAR Methylprednisolone Sodium Succinate (Methylprednisolone Sod Succ 62.5 Mg/Ml 2ml Vial) 125 mg IVP X1 ONE Stop: 04/18/25 20:42 Last Admin: 04/18/25 21:10 Dose: 125 mg Documented By: CB see above Consultations Consultation(s) initiated? (list below): Yes Consultation #1 (Physician, Specialty, Details): Discussed case with the resident physician, attending Dr. Guillen from Hospitalist service regarding admission. Discussed patients ED course, exam findings, labs, and radiology results. The Hospitalist agrees to accept the patient for admission. Time: 21:50 Diagnosis Shortness of Breath Differential Diagnosis: acute exacerbation of chronic obstructive airways disease, congestive heart failure, community acquired pneumonia and asthma with exacerbation Most likely diagnosis given after review of the tests above:: see clinical impression below Admission Indicated Admission indicated?: indicated Admission Request Was there a request for admission?: Yes Admission Attestation Admission request attestation: Discussed case with [] from Hospitalist service regarding admission. Discussed patients ED course, exam findings, labs, and radiology results. The Hospitalist [agrees,declines] to accept the patient for admission. Disposition Plan Disposition Plan: Admit Critical Care Time Critical Care Time Critical Care Time: Yes Total Critical Care Time (min.): 35 Attestation: Excluding other billable procedures Discharge Plan Plan Patient Disposition: Admit Acute Care w/in Hospital Prescriptions/Referrals Prescriptions/Med Rec: No Action albuterol sulfate 90 mcg/actuation HFA aerosol inhaler 1 puff inhalation QID PRN (Reason: shortness of breath or wheezing) Qty: 8.5 0RF aspirin 81 mg tablet,delayed release (DR/EC) 81 mg PO QDAY Qty: 30 0RF lactulose 10 gram/15 mL solution 10 g PO QDAY PRN (Reason: constipation) Qty: 3785 0RF lidocaine 5 % adhesive patch,medicated 1 patch topical QDAY Qty: 30 0RF Rx Instructions: leave on most painful area for up to 12 hrs prednisone 50 mg tablet 50 mg PO QDAY Qty: 7 0RF diazepam [Valium] 5 mg tablet 5 mg PO BID PRN (Reason: muscle spasm) Qty: 14 0RF ipratropium-albuterol 0.5 mg-3 mg(2.5 mg base)/3 mL solution for nebulization 3 ml inhalation Q8H PRN (Reason: shortness of breath) Qty: 90 0RF methadone 10 mg/5 mL Solution 100 mg PO QDAY nitroglycerin 0.4 mg Tablet, Sublingual 0.4 mg BUCCAL Q5MIN PRN (Reason: Chest Pain) ondansetron 4 mg tablet,disintegrating 4 mg PO Q8H PRN (Reason: nausea and vomiting) Qty: 10 0RF meclizine 50 mg tablet 50 mg PO BID PRN (Reason: dizziness or vertigo) Qty: 10 0RF Proair Digihaler 90 mcg/actuation aero powdr breath act w/sensor 2 inh inhalation Q6H PRN (Reason: shortness of breath or wheezing) Qty: 1 0RF Eliquis 5 mg tablet 5 mg PO Q12H Patient Comments: TAKE ONE TABLET BY MOUTH TWICE DAILY FOR THE HEART insulin glargine [Basaglar KwikPen U-100 Insulin] 100 unit/mL (3 mL) insulin pen 26 unit subcut QAM furosemide [Lasix] 20 mg tablet 20 mg PO QAM 30 Days Qty: 30 0RF buspirone 5 mg tablet 5 mg PO QDAY spironolactone 50 mg tablet 50 mg PO QDAY metoprolol succinate 25 mg tablet extended release 24 hr 25 mg PO QDAY hydralazine 100 mg tablet 100 mg PO TID loratadine [Allergy Relief (loratadine)] 10 mg tablet 10 mg PO QDAY Patient Comments: TAKE ONE TABLET BY MOUTH EVERY DAY FOR ALLERGY lisinopril 40 mg tablet 40 mg PO QDAY clonidine HCl 0.1 mg tablet 0.1 mg PO BID Patient Comments: TAKE ONE TABLET BY MOUTH TWICE DAILY metolazone 5 mg tablet 5 mg PO QDAY amlodipine 5 mg tablet 10 mg PO QDAY Patient Comments: TAKE TWO TABLETS BY MOUTH EVERY DAY FOR BLOOD PRESSURE lisinopril 10 mg tablet 10 mg PO QDAY 30 Days Qty: 30 0RF Trelegy Ellipta 200-62.5-25 mcg blister with device 1 inh inhalation QDAY Qty: 60 1RF Referrals: Apolinar Tai MD [Primary Care Provider] - In 1 week Problem List Clinical Impression: COPD exacerbation, Acute respiratory infection, History of noncompliance with medical treatment Patient/Caregiver Discharge Instructions Print Language: Japanese Stand Alone Forms: Kaylynn Award Info., Patient Portal Info Letter
--- NOTE | 2025-04-18 20:41 | EKG_ITS ---
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
[2025-04-18] MEDS: IPRATROPIUM RT 0.5 MG/ 2.5 ML NEBU 1 MG INH (20:55)
[2025-04-18] MEDS: ALBUTEROL RT 2.5 MG/0.5 ML NEBU 10 MG INH (20:55)
[2025-04-18 21:06] LABS: Basophils # (Auto) 0.0 Thou/mm3 (0.0-0.2); Basophils % (Auto) 0 % (0-2.5); Eosinophils # (Auto) 0.0 Thou/mm3 (0.0-0.5); Eosinophils % (Auto) 0 % (0-10); Hematocrit 27.4 % (36.0-46.0); Hemoglobin 9.3 g/dL (12.0-16.0); Immature Granulocytes Auto 0.40 Thou/mm3 (0.00-0.00); Lymphocytes # (Auto) 1.5 Thou/mm3 (1.0-4.8); Lymphocytes % (Auto) 6 % (10-50); Mean Corpuscular HGB Conc 33.9 g/dl (31.0-37.0); Mean Corpuscular Hemoglobin 26.3 pg (25.0-35.0); Mean Corpuscular Volume 77 fL (80-100); Monocytes # (Auto) 1.8 Thou/mm3 (0.0-0.8); Monocytes % (Auto) 7 % (0-12); Neutrophils # (Auto) 22.0 Thou/mm3 (1.8-7.7); Neutrophils % (Auto) 85 % (37-80); Nucleated Red Blood Cell # 0.00 Thou/mm3 (0.00-0.00); Nucleated Red Blood Cell % 0 /100 WBC (0); Platelet Count 307 Thou/mm3 (140-440); RDW Standard Deviation 39.8 fL (36.4-46.3); Red Blood Count 3.54 Miln/mm3 (4.00-5.20); White Blood Count 25.7 Thou/mm3 (3.6-11.0)
[2025-04-18] MEDS: MethylPREDNISolone SOD SUCC 62.5 MG/ML 2ML VIAL 125 MG IVP (21:10)
[2025-04-18 21:27] LABS: Alanine Aminotransferase 10 U/L (10-49); Albumin, Serum 4.0 gm/dL (3.4-4.8); Albumin/Globulin Ratio 1.7 (1.2-2.2); Alkaline Phosphatase 69 U/L (46-116); Anion Gap 7 (7-16); Aspartate Amino Transferase 11 U/L (0-34); BUN/Creatinine Ratio 33 Ratio (12-20); Bilirubin,Total 0.3 mg/dL (0.3-1.2); Blood Urea Nitrogen 40 mg/dL (9-23); Calcium 9.7 mg/dL (8.3-10.6); Calcium (Corrected) 9.7 mg/dL (8.5-10.1); Carbon Dioxide 27.7 mMol/L (20.0-31.0); Chloride 105 mMol/L (98-107); Creatinine (Component) 1.2 mg/dL (0.6-1.3); Estimated Creatinine Clearance 49.0 mL/min (>60); Globulin 2.3 gm/dL (2.3-3.5); Glucose 219 mg/dL (74-106); Osmolality,Calculated 296 (275-295); Potassium 4.1 mMol/L (3.4-5.1); Sodium 140 mMol/L (136-145); Total Protein 6.3 gm/dL (5.7-8.2); Troponin I < 0.020 ng/mL (0.0-0.045); eGFR 51 See Note
[2025-04-18 21:31] LABS: B-Type Natriuretic Peptide 116 pg/mL (0-100)
[2025-04-18 21:56] LABS: Base Excess, Venous 2 (-3-3); O2 Saturation, Venous 97 % (96-97); PCO2, Venous 36 mmHg (36-56); PO2, Venous 72 mmHg (15-58); pH, Venous 7.47 (7.33-7.66)
[2025-04-18] MEDS: AZITHROMYCIN INJ 500 MG in SODIUM CHLORIDE 0.9% 250 ML 250 ML 250 MG IV (22:05)
--- NOTE | 2025-04-18 22:17 | ECHO_ITS ---
Transthoracic Echo Report Ht (in): 65 Wt (lb): 168 Exam Location: Echo Lab Status: Emergency Tray Line Supervisor: Hannah Baugh Indications: Procedure Performed: BP: 133 / 78 HR: 106 MEASUREMENTS (Male / Female) Normal Values 2D ECHO LV Diastolic Diameter PLAX 3.5 cm 4.2 - 5.9 / 3.9 - 5.3 cm LV Systolic Diameter PLAX 2.3 cm IVS Diastolic Thickness 1.3 cm 0.6 - 1.0 / 0.6 - 0.9 cm LVPW Diastolic Thickness 1.2 cm 0.6 - 1.0 / 0.6 - 0.9 cm LV Relative Wall Thickness 0.7 LVOT Diameter 1.5 cm LA Volume Index 20.2 cm?/m? 16 - 28 cm?/m? DOPPLER AV Peak Velocity 222.5 cm/s AV Peak Gradient 19.8 mmHg AV Mean Gradient 10.0 mmHg AV Velocity Time Integral 44.1 cm LVOT Peak Velocity 181.0 cm/s LVOT Peak Gradient 13.1 mmHg LVOT Velocity Time Integral 35.1 cm LVOT Cardiac Index 3480.7 cm?/min?m? AV Area Cont Eq vti 1.4 cm? AV Area Cont Eq pk 1.4 cm? MV Area PHT 5.1 cm? Mitral E Point Velocity 41.7 cm/s Mitral A Point Velocity 66.5 cm/s Mitral E to A Ratio 0.6 LV E' Lateral Velocity 6.6 cm/s Mitral E to LV E' Lateral Ratio 6.3 LV E' Septal Velocity 4.1 cm/s Mitral E to LV E' Septal Ratio 10.1 TR Peak Velocity 218.5 cm/s TR Peak Gradient 19.1 mmHg PV Peak Velocity 152.0 cm/s PV Peak Gradient 9.2 mmHg FINDINGS Left Ventricle Normal left ventricular size and systolic function with no obvious regional wall motion abnormalities. Mild LVH. The ejection fraction is visually estimated at 55-60%. There is grade I diastolic dysfunction of the left ventricle Right Ventricle The right ventricle is normal in size and systolic function. Left Atrium The left atrium is normal by two-dimensional, color flow and Doppler imaging with no structural abnormalities, no thrombus formation present. Right Atrium The right atrium is normal by two-dimensional imaging, color flow and Doppler imaging with no structural abnormalities, no thrombus formation present. Atrial Septum The interatrial septum appears normal with no evidence of a shunt. Aorta The aorta is normal by two-dimensional, color flow and Doppler interrogation. Mitral Valve The mitral valve is normal by two-dimensional, color flow and Doppler interrogation. There is no significant mitral valve regurgitation, stenosis or prolapse. Aortic Valve The aortic valve is trileaflet and normal by two-dimensional, color flow and Doppler interrogation. There is no significant aortic valve regurgitation. Tricuspid Valve The tricuspid valve is normal by two-dimensional, color flow and Doppler interrogation. There is mild tricuspid valve regurgitation. Pulmonic Valve The pulmonic valve is not well visualized. There is no significant pulmonic valve regurgitation. Vessels The pulmonary artery appears normal. The inferior vena cava pulmonary and hepatic veins appear normal. Pericardium The pericardium is normal by two-dimensional imaging. There is no significant pericardial effusion. CONCLUSIONS Indication: pitting edema on lower ext, risk factors The transthoracic study is normal by two-dimensional, color flow imaging and Doppler interrogation. Normal left ventricular size and function. Approximate ejection fraction is 60%. Trace mitral and trace tricuspid regurgitation No wall motion abnormalities noted. The RV is normal in size and systolic function. There is mild TR. Anna Clement (Electronically Signed) Final Date: 20 April 2025 14:06
--- NOTE | 2025-04-18 22:32 | ESHP_ITS ---
Documentation for date of: 04/18/25 HPI History of Present Illness Chief complaint: Shortness of breath History of present illness: 63-year-old female with past medical history of COPD on 2 L home oxygen, A-fib, hypertension, CKD stage IIIb, [id number] type 2 diabetes, polysubstance use disorder presents to the ED on 04/18 with increased episodes of shortness of breath. Patient states that ever since being discharged on 04/06 for COPD exacerbation she was doing okay; however, tonight she started developing increased level of shortness of breath. Patient states that she tried using her home inhalers including albuterol but those did not help her symptoms. Patient denies having any sick contacts; however, she is reporting some sore throat which has worsened in the past several days. Patient otherwise denies any fever/chills or any other concerning cardiac symptoms at this time. Medical history: As stated above Surgical history: Eye surgery, tonsillectomy, oophorectomy for polycystic ovary, appendectomy Allergies: Codeine causes rash, diphenhydramine causes hives, it causes rash, penicillin causes swelling and respiratory distress) and causes hives Medications: Pending med rec Family history: Noncontributory Social history: Patient denies illicit drug use, former smoker greater than [id number] history, social drinker, lives in [place]. ROS: All 12 systems assessed and the patient denies unless otherwise stated in HPI. In the ED, patient presented mildly hypertensive 137/82, tachycardic with a heart rate of 119, respiratory rate 17, afebrile satting 97 on 3 L nasal cannula. Pertinent lab findings included fingerstick blood glucose of 192, WBC 25.7, hemoglobin of 9.3 with MCV of 77, VBG showed a pH of 7.47 pCO2 of 36, BUN 40, creatinine 1.2, EGFR 51, troponin less than 0.020, BNP 816, chest x-ray showed no active disease and EKG showed sinus tachycardia with possible left atrial enlargement. Patient will be admitted for COPD exacerbation and started on IV antibiotics, IV steroids, breathing treatments along with echo for possible CHF exacerbation. Exam Vital Signs Temp Pulse Resp BP Pulse Ox O2 Del Method O2 Flow Rate 99.2 F 97 20 147/80 H 100 Room Air 3 04/18/25 21:39 04/18/25 21:39 04/18/25 21:39 04/18/25 21:39 04/18/25 21:39 04/18/25 20:40 04/18/25 21:00 Narrative Exam Physical Exam: General: appears stated age, answers questions appropriately HEENT: Anicteric sclera, PERRLA, extraocular eye movements intact Cardiovascular: Tachycardic. Normal rhythm, no murmur, +S1/S2. Respiratory: Prolonged expiratory wheezing. No rales or crackles noted. Gastrointestinal: Soft, nontender, non-distended. No guarding or rebound tenderness. Extremities: +2 pitting edema up to bilateral shins. No cyanosis, no clubbing. 2+ radial pulse bilaterally, 2+ posterior tibial pulse bilaterally. Neuro: Alert and oriented x3, No focal deficits observed Results: Labs 04/18/25 20:40 04/18/25 20:40 Labs: Short CBC 04/18/25 Range/Units 20:40 WBC 25.7 H D (3.6-11.0) Thou/mm3 Hgb 9.3 L (12.0-16.0) g/dL Hct 27.4 L (36.0-46.0) % Plt Count 307 D (140-440) Thou/mm3 BMP 04/18/25 20:40 Sodium 140 Potassium 4.1 Chloride 105 Carbon Dioxide 27.7 BUN 40 H Creatinine 1.2 D Glucose 219 H Calcium 9.7 Cardiac Enzymes 04/18/25 Range/Units 20:40 Troponin I < 0.020 (0.0-0.045) ng/mL Liver Function 04/18/25 Range/Units 20:40 Total Bilirubin 0.3 (0.3-1.2) mg/dL AST 11 (0-34) U/L ALT 10 (10-49) U/L Alkaline Phosphatase 69 (46-116) U/L Albumin 4.0 (3.4-4.8) gm/dL ABG Interpretation ABG results: 04/18/25 20:40 VBG pH 7.47 VBG pCO2 36 VBG pO2 72 H VBG Base Excess 2 Quality Measures Quality Measures none Medications Home Medications and Allergies Home Medications ?Medication ?Instructions ?Recorded ?Confirmed ?Type methadone 10 mg/5 mL oral solution 100 mg PO QDAY 01/2404/04/25 History nitroglycerin 0.4 mg sublingual 0.4 mg buccal Q5MIN GA N Chest Pain 02/07/24 04/04/25 History tablet apixaban 5 mg tablet (Eliquis) 5 mg PO Q12H 01/02/25 0 04/04/25 History insulin glargine 100 unit/mL (3 26 unit subcut QAM 07/2004/04/25 History mL) subcutaneous pen (Basaglar KwikPen U-100 Insulin) amlodipine 5 mg tablet 10 mg PO QDAY 04/04/2504/04 History buspirone 5 mg tablet 5 mg PO QDAY 04/04/25 History clonidine HCl 0.1 mg tablet 0.1 mg PO BID 04/04/2507/20 History hydralazine 100 mg tablet 100 mg PO TID 04/04/2504/04 History lisinopril 40 mg tablet 40 mg PO QDAY 04/04/2504/04 History Held on 04/06/25. Instructions: Resume on 04/19/25. HOLD until she follows up PCP and then resume Lisinopril after THEO resolved. loratadine 10 mg tablet (Allergy 10 mg PO QDAY 5 04/04/25 History Relief (loratadine)) metolazone 5 mg tablet 5 mg PO QDAY 04/04/25 History metoprolol succinate 25 mg 25 mg PO QDAY 04/04/2503/26 History tablet,extended release 24 hr spironolactone 50 mg tablet 50 mg PO QDAY 04/04/2507/20 History Allergies Allergy/AdvReac Type Severity Reaction Status Date / Time codeine Allergy Severe RASH Verified 04/18/25 20:36 diphenhydramine HCl Allergy Severe Hives Verified 04/18/25 20:36 egg Allergy Severe Rash Verified 04/18/25 20:36 Penicillins Allergy Severe SWELLING, Verified 04/18/25 20:36 RESP DISTRESS pentazocine (From Evaristo) Allergy Severe Hives Verified 04/18/25 20:36 Visit Medications Acetaminophen (Acetaminophen 325 Mg Tablet) 650 mg PO Q6H PRN PRN Reason: PAIN SCALE 1-3 (mild Stop: 05/18/25 22:12 Albuterol/Ipratropium (Albuterol/Ipratropium (Duoneb) Rt [place] 3 Ml Nebu) 3 ml INH Q6HRRT [facility] Stop: 05/19/25 00:59 Apixaban (Apixaban 2.5 Mg Tablet) 5 mg PO BID KIP Stop: 05/19/25 08:59 Aspirin (Aspirin Ec 81 Mg Tabec) 81 mg PO QDAY [facility] Stop: 05/19/25 08:59 Buspirone HCl (Buspirone Hcl 5 Mg Tablet) 5 mg PO QDAY [facility] Stop: 05/19/25 08:59 Dextrose (Dextrose 50%-Water Inj 50 Ml Syringe) 25 ml IV Q15MIN PRN PRN Reason: BG 50-70 responsive npo pt Stop: 05/18/25 22:18 Dextrose (Dextrose 50%-Water Inj 50 Ml Syringe) 50 ml IV Q15MIN PRN PRN Reason: BG <50 OR BG <70 & pt unresponsive Stop: 05/18/25 22:18 Diazepam (Diazepam 5 Mg Tablet) 5 mg PO BID PRN PRN Reason: MUSCLE SPASMS Stop: 04/24/25 08:59 Glucagon (Glucagon Inj 1 Mg Vial) 1 mg IM Q15MIN PRN PRN Reason: BG <70, and no IV access Azithromycin 500 mg/ Sodium (Chloride) 250 mls @ 250 mls/hr IV X1 ONE Stop: 04/18/25 22:47 Last Admin: 04/18/25 22:05 Dose: 250 mls/hr Azithromycin 500 mg/ Sodium (Chloride) 250 mls @ 250 mls/hr IV QDAY [facility] Stop: 04/21/25 08:59 Ceftriaxone Sodium/Dextrose (Rocephin/D5w 1gm Iv Premix) 1 gm in 50 mls @ 100 mls/hr IV QDAY [facility] Stop: 04/26/25 08:59 Insulin Human Lispro (Insulin Lispro (Admelog) 1 Unit/0.01 Ml Unit) 0 unit SC [facility]; Protocol Stop: 05/19/25 07:29 Levalbuterol HCl (Levalbuterol Rt 0.63 Mg/3 Ml Nebu) 0.63 mg INH Q8HR PRN PRN Reason: WHEEZING Stop: 05/18/25 22:18 Methylprednisolone Sodium Succinate (Methylprednisolone Sod Succ 40 Mg Vial) 40 mg IVP BID [facility] Stop: 04/26/25 08:59 Ondansetron HCl (Ondansetron Inj 2 Mg/Ml Inj 2 Ml) 4 mg IVP Q6H PRN; Protocol PRN Reason: NAUSEA OR VOMITING Stop: 05/18/25 22:12 Fluticasone/Salmeterol (Fluticasone/Salmeterol 250/50 14 Dose Inh) 1 puff INH BIDRT KIP Stop: 05/19/25 06:59 Sennosides (Senna Tablet) 1 tab PO QDAY PRN; Protocol PRN Reason: constipation Stop: 05/18/25 22:12 Discontinued Medications Albuterol (Albuterol Rt 2.5 Mg/0.5 Ml Nebu) 10 mg INH X1 ONE Stop: 04/18/25 21:01 Last Admin: 04/18/25 20:55 Dose: 10 mg Furosemide (Furosemide Inj 10 Mg/Ml 4ml Vial) 40 mg IVP X1 ONE Stop: 04/18/25 22:14 Heparin Sodium (Porcine) (Heparin Sod Inj 5000 Unit/Ml Vial) 5,000 unit SC Q12HR [facility] Stop: 05/03/25 08:59 Ceftriaxone Sodium/Dextrose (Rocephin/D5w 1gm Iv Premix) 1 gm in 50 mls @ 100 mls/hr IV X1 ONE Stop: 04/18/25 22:16 Ceftriaxone Sodium/Dextrose (Rocephin/D5w 1gm Iv Premix) 1 gm in 50 mls @ 100 mls/hr IV QDAY [facility] Stop: 04/25/25 22:17 Ipratropium [place] (Ipratropium Rt 0.5 Mg/ 2.5 Ml Nebu) 1 mg INH X1 ONE Stop: 04/18/25 20:42 Last Admin: 04/18/25 20:55 Dose: 1 mg Methylprednisolone Sodium Succinate (Methylprednisolone Sod Succ 62.5 Mg/Ml 2ml Vial) 125 mg IVP X1 ONE Stop: 04/18/25 20:42 Last Admin: 04/18/25 21:10 Dose: 125 mg Assessment & Plan Plan 63-year-old female with past medical history of COPD on 2 L home oxygen, A-fib, hypertension, CKD stage IIIb, [id number] type 2 diabetes, polysubstance use disorder presents to the ED on 04/18 with increased episodes of shortness of breath will be admitted for COPD exacerbation and started on IV antibiotics, IV steroids, breathing treatments along with echo for possible CHF exacerbation. #COPD exacerbation #Leukocytosis As noted above, patient has longstanding history of COPD on 2 L home nasal cannula Presenting with acute exacerbation, on examination patient has prolonged expiratory wheezing In the ED, was given loading dose of IV Solu-Medrol along with breathing treatments which has largely improved her presenting symptoms Patient does have elevated WBC of 25.7, no signs of recent steroid use Chest x-ray does not show any active disease at this point Plan: Continue IV azithromycin and IV ceftriaxone DuoNeb scheduled and as needed for wheezing IV Solu-Medrol 40 mg twice daily Consider chest PT #Possible CHF exacerbation? Patient does not have any history of heart disease, CHF On assessment patient has +2 pitting edema up to bilateral shins but no crackles or JVD BNP is mildly elevated at 116 Plan: Gave IV Lasix 40 x 1 Strict I's and O's Daily weight Fluid restriction 1800 mL Echo ordered to assess ejection fraction and valvular dysfunctions #Atrial Fibrillation, paroxysmal CHADVASC 3?points Stroke risk was 3.2% per year in >90,000 patients? Patient has a history of Afib w/RVR EKG showed sinus tachycardia with possible left atrial enlargement. Plan: Continue eliquis 5 mg PO Q12H Holding metoprolol succinate as patient is in COPD exacerbation, consider different agent for A-fib rate control #Chronic Kidney Disease, stage IIIa Chronic medical condition Patient's creatinine improved since prior admission to 1.2 Plan: Avoid nephrotoxins Renally dose medications Monitor with morning labs Replete electrolytes as needed #Iron Deficiency Anemia On prior admiss UA showing 1 ion, patient noted to have iron deficiency anemia Does have past history of melanotic stool Currently hemoglobin at baseline Plan: Recommend outpatient colonoscopy as previously noted Resume iron supplementation as outpatient #T2DM, insulin dependent 04/04: A1c of 6.4 Plan: Sliding scale insulin #Hypertension Chronic medical condition On home medications of amlodipine, lisinopril, clonidine and metolazone Plan: Restarted patient's amlodipine and clonidine Restart home medications when appropriate #Anxiety #Depression #Muscle spasm Chronic medical problems Plan: Restarted patient's BuSpar and Valium as needed for muscle spasms Health Maintenance: Lines: PIV Diet: Cardiac Bowel: Senna GI prophylaxis: Not needed DVT prophylaxis: On Eliquis Dispo: Treatment for COPD exacerbation and workup for possible CHF exacerbation Code: Full Patient seen and assessed with attending Dr. Wilmer Ng, PGY-2 Internal Medicine - [facility] Attending Provider Attestation/Addendum I attest that I was physically present for the evaluation, physical examination, lab and imaging review of the patient with the residents. I discussed the case with the residents and agree with the findings and plans of care as documented above. After examination of the patient and review of the clinical data I feel that this patient needs admission to the hospital for further treatment/evaluation. Patient is a 63 years old female with past medical history of COPD on home oxygen, A-fib, hypertension, CKD, diabetes mellitus, polysubstance use disorder who presented to the ED with complaint of increased shortness of breath. Patient was recently discharged after management of COPD exacerbation, stated that she initially was feeling better after discharge but started having increased shortness of breath again. She also has sore throat currently. Denied any fever or chills, chest pain, nausea or vomiting. In the ED, patient was tachycardic, was initially found to be in respiratory distress. On exam, continues to be on mild respiratory distress, respiratory rate of 20, saturating well on 3 L nasal cannula. Noted to have prolonged expiratory breathing, bilateral wheezing more on right side. Also noted to have 2+ pedal edema up to bilateral shins. Chest x-ray did not show any active disease, BNP is 116, kidney function shows improvement compared to last visit. WBC noted to be 25.7. Bedside COVID is negative. We will admit the patient for management of acute exacerbation of COPD. Patient is started on IV Rocephin and azithromycin, received breathing treatment and Solu-Medrol in the ED. We will continue with DuoNebs, Solu-Medrol 40 mg IV twice daily. Started insulin regimen for diabetes, Eliquis for A-fib. Noted to be anemic, possibly secondary to CKD, versus iron deficiency. With bilateral pedal edema, concern for volume overload, we will obtain echo Doppler. We will continue with supplemental oxygen and monitor her respiratory status closely. We will also obtain RSV, strep A and influenza. Lul Guillen MD
[2025-04-18] MEDS: FUROSEMIDE INJ 10 MG/ML 4ML VIAL 40 MG IVP (22:57)
[2025-04-18] MEDS: cefTRIAXone/D5w 1gm IV premix 1 GM/50 ML BAG IV (22:57)
[2025-04-19] VITALS (19 sets, daily range): BP systolic 101–170; BP diastolic 60–95; PULSE 81–108; RESP 10–21; TEMP 36–36.8; O2SAT 94–100; BMI 26.5
[2025-04-19] MEDS: ACETAMINOPHEN 325 MG TABLET 650 MG PO ×2 (00:14→08:17)
[2025-04-19] MEDS: ALBUTEROL/IPRATROPIUM (Duoneb) RT SOL 3 ML NEBU INH ×4 (00:40→18:33)
[2025-04-19 05:25] LABS: Strep A Rapid Negative (Negative)
[2025-04-19 05:26] LABS: Influenza A Ag Negative; Influenza B Ag Negative
[2025-04-19 05:26] LABS: Respiratory Syncytial Virus Ag Negative (Negative)
[2025-04-19 06:29] LABS: Basophils # (Auto) 0.0 Thou/mm3 (0.0-0.2); Basophils % (Auto) 0 % (0-2.5); Eosinophils # (Auto) 0.0 Thou/mm3 (0.0-0.5); Eosinophils % (Auto) 0 % (0-10); Hematocrit 26.8 % (36.0-46.0); Immature Granulocytes Auto 0.16 Thou/mm3 (0.00-0.00); Lymphocytes # (Auto) 0.4 Thou/mm3 (1.0-4.8); Lymphocytes % (Auto) 2 % (10-50); Mean Corpuscular HGB Conc 31.3 g/dl (31.0-37.0); Mean Corpuscular Hemoglobin 25.3 pg (25.0-35.0); Mean Corpuscular Volume 81 fL (80-100); Monocytes # (Auto) 0.2 Thou/mm3 (0.0-0.8); Monocytes % (Auto) 1 % (0-12); Neutrophils # (Auto) 15.9 Thou/mm3 (1.8-7.7); Neutrophils % (Auto) 95 % (37-80); Nucleated Red Blood Cell # 0.00 Thou/mm3 (0.00-0.00); Nucleated Red Blood Cell % 0 /100 WBC (0); Platelet Count 249 Thou/mm3 (140-440); RDW Standard Deviation 40.8 fL (36.4-46.3); Red Blood Count 3.32 Miln/mm3 (4.00-5.20); White Blood Count 16.6 Thou/mm3 (3.6-11.0)
[2025-04-19 06:58] LABS: Hemoglobin 8.4 g/dL (12.0-16.0)
[2025-04-19 07:11] LABS: Alanine Aminotransferase 11 U/L (10-49); Albumin, Serum 3.4 gm/dL (3.4-4.8); Albumin/Globulin Ratio 1.5 (1.2-2.2); Alkaline Phosphatase 61 U/L (46-116); Anion Gap 14 (7-16); Aspartate Amino Transferase 13 U/L (0-34); BUN/Creatinine Ratio 21 Ratio (12-20); Bilirubin,Total 0.3 mg/dL (0.3-1.2); Blood Urea Nitrogen 33 mg/dL (9-23); Calcium 8.6 mg/dL (8.3-10.6); Calcium (Corrected) 9.1 mg/dL (8.5-10.1); Carbon Dioxide 22.7 mMol/L (20.0-31.0); Chloride 99 mMol/L (98-107); Creatinine (Component) 1.6 mg/dL (0.6-1.3); Estimated Creatinine Clearance 35.9 mL/min (>60); Globulin 2.3 gm/dL (2.3-3.5); Magnesium 1.8 mg/dL (1.6-2.6); Osmolality,Calculated 307 (275-295); Phosphorous 2.8 mg/dL (2.4-5.1); Potassium 4.5 mMol/L (3.4-5.1); Sodium 136 mMol/L (136-145); Total Protein 5.7 gm/dL (5.7-8.2); eGFR 36 See Note
[2025-04-19 07:18] LABS: Glucose 602 mg/dL (74-106)
[2025-04-19] MEDS: INSULIN LISPRO (AdmeLOG) 1 UNIT/0.01 ML UNIT SC ×4 (07:36→21:07)
[2025-04-19] MEDS: ONDANSETRON INJ 2 MG/ML INJ 2 ML 4 MG IVP (08:07)
[2025-04-19] MEDS: INSULIN HUM REGULAR 1 UNIT/0.01 ML (PER UNIT) 10 UNIT IV (08:08)
[2025-04-19] MEDS: APIXABAN 2.5 MG TABLET 5 MG PO ×2 (08:17→20:57)
[2025-04-19] MEDS: ASPIRIN EC 81 MG TABEC PO (08:18)
[2025-04-19] MEDS: cefTRIAXone/D5w 1gm IV premix 1 GM/50 ML BAG IV (08:18)
--- NOTE | 2025-04-19 08:27 | ESPR_ITS ---
Documentation for date of: 04/19/25 Overnight admission secondary to COPD exacerbation. Patient has a past medical history of atrial fibrillation, hypertension, diabetes mellitus type 2, history Takotsubo cardiomyopathy (November 2023)---->Normal size LV and EF of 65-70%, COPD on home oxygen (2 L), substance use disorder on methadone. Patient presented with COPD exacerbation, started on Methylprednisolone 40 mg BID, continue Duonebs, and Fluticasone/Salmederol. Continue to monitor work of breathing. Chest x-ray noted for some mild pulmonary vascular congestion but a emphyesema patter noted. BNP 116. Shortness of breath likely secondary to COPD exacerbation as chest xray less likely secondary to CHF. Pending Echo. Lower peripheral edema may be secondary to venous statis. Hyperglycemia noted likely secondary to steriod vs CAP. Regular insulin X 1 and resume home glargine 26 units. Sliding scale increased to intermediate. Resume antihypertensive medication hydralazine 100 mg TID and spirnolactone. Holding off metoprolol given COPD exacerbation. Continue to treat COPD exacerbation. - The patient's plan was discussed with attending Dr. Craig Puga MD PGY2 Internal Medicine Subjective Subjective Interval history: Patient was see and evaluated today at bedside. Patient acknowledged a worsening one day history of shortness of breath, similar to her most recent episode. Patient endorsed a tactile fever and denied chills. Patient endorsed a cough of light yellow sputum production. Patient stated that since her previous discharge on 04/06, she has used her Trelegy inhaler once a day and albuterol inhaler 4x a day with minimal effect. Patient endorsed chest tightness, similar to previous episodes. Patient denied palpitations. Wheezing was noted in all for quadrants on examination. Patient did not appear fluid overloaded. Exam Vital Signs Temp Pulse Resp BP Pulse Ox O2 Del Method O2 Flow Rate 98.2 F 105 H 16 169/95 H 99 Nasal Cannula 2 04/19/25 04:00 04/19/25 08:20 04/19/25 06:31 04/19/25 08:20 04/19/25 06:31 04/19/25 04:00 04/19/25 06:31 Narrative Exam General Appearance: Alert & Oriented to person, place, time, and condition; well-nourished female who is lying in bed in mild respiratory distress. HEENT: Skull symmetrical and atraumatic. Conjunctivae pink and moist. Pupils equal, round, reactive to light and accommodation (PERRL). External ear without lesion or discharge. Straight, nares patient, mucosa pink, no discharge. No thyroid nodule appreciated. No cervical lymphadenopathy. Cardio: Normal Rate and Rhythm with S1 and S2 heart sounds. No murmurs or extra heart sounds auscultated. No bruits on carotid auscultation. No peripheral edema or cyanosis. Lungs: Symmetric with good expansion. Chest and back non-tender. Breath sounds vesicular with wheezing in all four quadrants. Abdomen: Non-tender, Non-distended, Normal Reactive Bowel Sounds Neuro: Alert, cooperative, oriented to person, place, time, and condition. Speech clear. CN grossly intact. Upper motor strength 5/5 and Lower motor strength 5/5. Sensation intact. Objective Labs 04/20/25 06:38 04/20/25 06:38 Labs: Laboratory Results - last 24 hr 04/18/25 04/18/25 04/19/25 04:31 20:40 04:31 WBC 25.7 H D RBC 3.54 L Hgb 9.3 L Hct 27.4 L MCV 77 L MCH 26.3 MCHC 33.9 RDW Std Deviation 39.8 Plt Count 307 D Neut % (Auto) 85 H Lymph % (Auto) 6 L [place] % (Auto) 7 Eos % (Auto) 0 Baso % (Auto) 0 Neut # (Auto) 22.0 H Lymph # (Auto) 1.5 [place] # (Auto) 1.8 H Eos # (Auto) 0.0 Baso # (Auto) 0.0 Immature Gran # (Auto) 0.40 H Absolute Nucleated RBC 0.00 Immature Gran % 2 H Nucleated RBC % 0 VBG pH 7.47 VBG pCO2 36 VBG pO2 72 H VBG O2 Sat ([place]) 97 VBG Base Excess 2 Sodium 140 Potassium 4.1 Chloride 105 Carbon Dioxide 27.7 Anion Gap 7 BUN 40 H Creatinine 1.2 D Estim Creat Clear Calc 49.0 L eGFR 51 L BUN/Creatinine Ratio 33 H Glucose 219 H Calculated Osmolality 296 H Calcium 9.7 Corrected Calcium 9.7 Phosphorus Magnesium Total Bilirubin 0.3 AST 11 ALT 10 Alkaline Phosphatase 69 Troponin I < 0.020 B-Natriuretic Peptide 116 H Total Protein 6.3 Albumin 4.0 Globulin 2.3 Albumin/Globulin Ratio 1.7 Influenza A (Rapid) Negative Influenza B (Rapid) Negative RSV Rapid Negative Group A Strep Rapid Negative 04/19/25 05:58 WBC 16.6 H D RBC 3.32 L Hgb 8.4 L Hct 26.8 L MCV 81 MCH 25.3 MCHC 31.3 RDW Std Deviation 40.8 Plt Count 249 D Neut % (Auto) 95 H Lymph % (Auto) 2 L [place] % (Auto) 1 Eos % (Auto) 0 Baso % (Auto) 0 Neut # (Auto) 15.9 H Lymph # (Auto) 0.4 L [place] # (Auto) 0.2 Eos # (Auto) 0.0 Baso # (Auto) 0.0 Immature Gran # (Auto) 0.16 H Absolute Nucleated RBC 0.00 Immature Gran % 1 H Nucleated RBC % 0 VBG pH VBG pCO2 VBG pO2 VBG O2 Sat ([place]) VBG Base Excess Sodium 136 Potassium 4.5 Chloride 99 Carbon Dioxide 22.7 Anion Gap 14 BUN 33 H Creatinine 1.6 H Estim Creat Clear Calc 35.9 L eGFR 36 L BUN/Creatinine Ratio 21 H Glucose 602 H* D Calculated Osmolality 307 H Calcium 8.6 Corrected Calcium 9.1 Phosphorus 2.8 Magnesium 1.8 Total Bilirubin 0.3 AST 13 ALT 11 Alkaline Phosphatase 61 Troponin I B-Natriuretic Peptide Total Protein 5.7 Albumin 3.4 D Globulin 2.3 Albumin/Globulin Ratio 1.5 Influenza A (Rapid) Influenza B (Rapid) RSV Rapid Group A Strep Rapid ABG Interpretation ABG results: 04/18/25 20:40 VBG pH 7.47 VBG pCO2 36 VBG pO2 72 H VBG Base Excess 2 Quality Measures Quality Measures none Assessment & Plan Assessment Current Active Medications: Generic Name Dose Route Start Last Admin Trade Name Freq PRN Reason Stop Dose Admin Acetaminophen 650 mg 04/19/25 07:42 04/19/25 08:17 Acetaminophen 325 Mg Tablet PO 05/18/25 22:12 650 mg Q6H PRN Administration Mild Pain 1-3 or fever >100.1 Albuterol/Ipratropium 3 ml 04/19/25 01:00 04/19/25 06:29 Albuterol/Ipratropium (Duoneb) Rt Blanca 3 Ml Nebu INH 05/19/25 00:59 3 ml Q6HRRT KIP Administration Amlodipine Besylate 10 mg 04/19/25 09:00 04/19/25 08:17 Amlodipine Besylate 5 Mg Tablet PO 05/19/25 08:59 10 mg QDAY KIP Administration Apixaban 5 mg 04/19/25 09:00 04/19/25 08:17 Apixaban 2.5 Mg Tablet PO 05/19/25 08:59 5 mg BID KIP Administration Aspirin 81 mg 04/19/25 09:00 04/19/25 08:18 Aspirin Ec 81 Mg Tabec PO 05/19/25 08:59 81 mg QDAY KIP Administration Buspirone HCl 5 mg 04/19/25 09:00 04/19/25 08:16 Buspirone Hcl 5 Mg Tablet PO 05/19/25 08:59 5 mg QDAY KIP Administration Clonidine 0.1 mg 04/19/25 09:00 04/19/25 08:20 Clonidine Hcl 0.1 Mg Tablet PO 05/19/25 08:59 0.1 mg BID KIP Administration Dextrose 25 ml 04/18/25 22:19 Dextrose 50%-Water Inj 50 Ml Syringe IV 05/18/25 22:18 Q15MIN PRN BG 50-70 responsive npo pt Dextrose 50 ml 04/18/25 22:19 Dextrose 50%-Water Inj 50 Ml Syringe IV 05/18/25 22:18 Q15MIN PRN BG <50 OR BG <70 & pt unresponsive Diazepam 5 mg 04/18/25 22:26 Diazepam 5 Mg Tablet PO 04/24/25 08:59 BID PRN MUSCLE SPASMS Glucagon 1 mg 04/18/25 22:19 Glucagon Inj 1 Mg Vial IM Q15MIN PRN BG <70, and no IV access Hydromorphone HCl 0.5 mg 04/19/25 07:43 Hydromorphone Inj 2 Mg/Ml Vial IVP 04/24/25 07:41 Q12HR PRN Pain 4-10 Azithromycin 500 mg/ Sodium 250 mls @ 250 mls/hr 04/19/25 21:00 Chloride IV 04/26/25 20:59 QDAY@2100 KIP Ceftriaxone Sodium/Dextrose 1 gm in 50 mls @ 100 mls/hr 04/19/25 09:00 04/19/25 08:18 Rocephin/D5w 1gm Iv Premix IV 04/26/25 08:59 100 mls/hr QDAY KIP Administration Insulin Glargine 26 unit 04/19/25 09:00 Insulin Glargine (Lantus) 5 Unit/0.05 Ml (Per 5 Units) SC 05/19/25 08:59 QDAY KIP Insulin Human Lispro 0 unit 04/19/25 07:30 04/19/25 07:36 Insulin Lispro (Admelog) 1 Unit/0.01 Ml Unit SC 05/19/25 07:29 4 unit ACHS KIP Administration Protocol Levalbuterol HCl 0.63 mg 04/18/25 22:19 Levalbuterol Rt 0.63 Mg/3 Ml Nebu INH 05/18/25 22:18 Q8HR PRN WHEEZING Methylprednisolone Sodium Succinate 40 mg 04/19/25 09:00 04/19/25 08:18 Methylprednisolone Sod Succ 40 Mg Vial IVP 04/26/25 08:59 40 mg BID KIP Administration Ondansetron HCl 4 mg 04/18/25 22:13 04/19/25 08:07 Ondansetron Inj 2 Mg/Ml Inj 2 Ml IVP 05/18/25 22:12 4 mg Q6H PRN Administration NAUSEA OR VOMITING Protocol Fluticasone/Salmeterol 1 puff 04/19/25 07:00 04/19/25 06:29 Fluticasone/Salmeterol 250/50 14 Dose Inh INH 05/19/25 06:59 Not Given BIDRT KIP Sennosides 1 tab 04/18/25 22:13 Senna Tablet PO 05/18/25 22:12 QDAY PRN constipation Protocol Plan Plan Patient is a 64 year old female with past medical history of COPD (2-3 L home oxygen), insulin-dependent type 2 diabetes mellitus, CKD likely stage IIIB, Afib on Eliquis, and substance use disorder on methadone who presented to the ED via EMS 04/18 with one day history of worsening shortness of breath and was admitted for acute hypoxic respiratory failure due to COPD exacerbation and possible new- onset CHF pending echo. #Acute Hypoxic Respiratory Failure secondary to #COPD Exacerbation #COPD Patient endorsed a one day history of worsening shortness of breath, similar to previous episodes. Patient endorsed a feeling of chest tightness and tactile fever. Patient denied sick contacts. Patient stated she has used her Trelegy inhaler once a day and her albuterol 4x a day since her previous discharge 04/06 with minimal relief. Patient endorsed a cough of light yellow sputum production. Possible differentials: Likely COPD exacerbation given the patient's history and comparable hospitalizations in the past, allergies given poor air quality, and less likely, PE, as this patient isn't tachycardic and does not have any acute risk factors, such as DVT surgery or recent long distance travel making her susceptible to a clot. In addition, the patient's acute episode of dyspnea meets the criteria for COPD exacerbation CXR 04/18 demonstrated normal findings VBG 04/18 pH 7.47 pCO2 36 pO2 72 O2 sat 97 Plan: -Maintain patient's oxygen saturation between 88% and 92% given history of COPD -Continue DuoNeb 3ml Q6HRRT -Continue Levalbuterol 0.63 mg Q8HR PRN -Methylprednisolone 40 mg IVP BID for 5 days -Fluticasone/Salmoterol 1 puff BIDRT -Monitor patient's oxygen status #Leukocytosis #? Reactive Leukocytosis Patient is producing sputum of light yellow color via cough. Patient has a history of green mucus production and is more susceptible to infection given reduced ability to clear pathogens. In addition, patient endorsed a tactile fever. 04/18 influenza RSV strep group A negative Pertinent labs: WBC 16.6 Possible reasons: infection given this patient's history of poor respiratory health, reactive from stress of increased work of breathing, inhaler use leading to beta agonist activity and release of inflammatory mediators Plan: -IV azithromycin 500 mg QD and IV ceftriaxone 1 g QD (04/19-04/26) #Lower Peripheral Edema #? Possible Congestive Heart Failure Patient has not been formally diagnosed with heart failure. Patient was given IV Lasix 40 mg x1 04/18. No crackles were heard on examination. Most recent echo 02/16/24: EF 65-70% AV peak velocity 202 cm/s AV peak gradient 16.3 mmHg RSVP 12 mmHg RAP 5 mmHg trace tricuspid regurgitation Pertinent labs 04/18: BNP 116 Plan: -Single Lasix 40 mg X 04/18 -Echo, pending results -Fluid restricted -K>4 and mg >2 #Atrial Fibrillation, rate controlled #History of Atrial Fibrillation with rvr Patient has a history of atrial fibrillation with RVR. 04/18 EKG: sinus tachycardia Plan: -Continue Eliquis 5 mg PO BID -Holding off Metoprolol Succinate 25 mg once daily given, COPD exacerbation -Consider switching to different agent. #Hypertension Patient has a long standing history of hypertension. On spironolactone, metazalone, lisinopril, and hydralazine at home. Patient presented to the ED with BP 137/82 Plan: -Restarted Hydralazine 100 mg PO TID -Spironolactone 50 mg PO QD -Amlodipine 10 mg PO QD #Type 2 Diabetes Mellitus, Insulin-Dependent #Hyperglycemia Patient's FSBG 04/19 am 561. Hyperglycemia likely secondary to IV steriods vs CAP. 04/13 A1C: 6.4 Patient was given Insulin 10 units morning 04/19 Plan: -Resume Glargine 26 units -Sliding scale increased to intermediate -monitor fasting blood glucose #Chronic Kidney Disease, likey Stage IIIB Patient has a history of CKD. Remained stable since the last admission 04/04. Pertinent labs 04/19: BUN 33 Cr 1.6 GFR 36 Plan: -Monitor renal panel #Substance Use Disorder (Methamphetamine and Heroin) Patient has a long history of methamphetamine and heroin use Plan: -Continue patient's Methadone 100mg PO QD #Anxiety Patient has a history of anxiety. Plan: -Continue patient's Buspirone 5 mg PO QD and Diazepam 5 mg PO BID PRN Health Maintenance: Lines: PIV Diet: Cardiac Bowel: Senna GI prophylaxis: None DVT prophylaxis: SCD Dispo: Pending echo Code: Full Case reviewed with attending Dr. Srinivasan and senior resident Dr. Puga. Xiao Hogan MS-4 - The patient's plan was discussed with attending Dr. Sid Puga MD PGY2 Internal Medicine Attending Provider Attestation/Addendum I have examined the patient, reviewed labs and imaging findings, discussed the case with the resident(s), and reviewed entered orders. I agree with the plan of care as outlined in this note, with these additional summaries/recommendations: Patient seen at bedside. Patient seen receiving breathing treatment. Patient reports she has required multiple intubations in the past for COPD exacerbations. Patient diagnosed with acute on chronic hypoxic respiratory failure secondary to COPD exacerbation. Continue breathing treatments, IV azithromycin, and IV steroids. We will be cautious with steroids given significant hyperglycemia today. At baseline patient uses 2 L nasal cannula at home. Patient also noted to have some bilateral lower extremity edema and echocardiogram pending to rule out new onset CHF. Patient was given one-time Lasix which we will defer as creatinine increased. Leukocytosis is present which is most likely reactive secondary to chronic steroids. Continue home Eliquis for chronic atrial fibrillation. Continue methadone at home dose. Patient has underlying diabetes mellitus type 2 with significant hyperglycemia. A1c 6.3%. Blood sugars noted to be into the 500s/600s this morning. We will continue to adjust basal and bolus regimen until patient's at goal of 140-180 while hospitalized. Resume home antihypertensives. Patient updated on the plan and agreement. All questions answered to satisfaction. Please see residents note for additional details of management. Dr. Craig MD
[2025-04-19 09:31] LABS: Beta Hydroxybutyrate 0.0 mmol/L (<0.6)
[2025-04-19] MEDS: INSULIN GLARGINE (Lantus) 5 UNIT/0.05 ML (PER 5 UNITS) 26 UNIT SC (09:52)
[2025-04-19] MEDS: SPIRONOLACTONE 25 MG TABLET 50 MG PO (09:53)
--- NOTE | 2025-04-19 11:15 | PC.SS ---
Initial: Patient is a 64 year old Female who presents to the hospital for CHF, COPD exacerbation. HEAD PORTER made contact with patient at bedside and explained role and reason for visit. Pt. was alert and oriented. Pt. confirmed demographic information. Pt. reported that her next of kin is son, Patria Diaz ph: [phone]. Pt reports that she utilizes walker to complete ADL?s. Pt. stated that her PCP is at [facility], DR. Apolinar Tai. Pt. stated that she has diabetes but does not have a glucometer. Pt. reported that she is disabled and receives SSI. Pt. utilizes 2L of oxygen at home but stated she does not know the name of the provider. Pt. stated that once she is medically cleared she would like to return home and her son can provide transportation. PCP: DR. Apolinar Tai D/C: home with son Next of Kin: Patria Diaz ph: [phone]
[2025-04-19] MEDS: METHADONE 100 MG PO (13:55)
[2025-04-19] MEDS: FLUTICASONE/SALMETEROL 250/50 14 DOSE INH 1 PUFF INH (18:33)
[2025-04-19] MEDS: AZITHROMYCIN INJ 500 MG in SODIUM CHLORIDE 0.9% 250 ML 250 ML 250 MG IV (20:59)
[2025-04-20] VITALS (19 sets, daily range): BP systolic 91–139; BP diastolic 51–88; PULSE 79–120; RESP 12–20; TEMP 36.2–37.1; O2SAT 92–99; BMI 26.5
[2025-04-20] MEDS: ALBUTEROL/IPRATROPIUM (Duoneb) RT SOL 3 ML NEBU INH ×4 (00:38→18:33)
[2025-04-20] MEDS: ONDANSETRON INJ 2 MG/ML INJ 2 ML 4 MG IVP (02:41)
[2025-04-20] MEDS: FLUTICASONE/SALMETEROL 250/50 14 DOSE INH 1 PUFF INH ×2 (06:14→18:33)
[2025-04-20 07:14] LABS: Basophils # (Auto) 0.0 Thou/mm3 (0.0-0.2); Basophils % (Auto) 0 % (0-2.5); Eosinophils # (Auto) 0.0 Thou/mm3 (0.0-0.5); Eosinophils % (Auto) 0 % (0-10); Hematocrit 28.4 % (36.0-46.0); Hemoglobin 8.9 g/dL (12.0-16.0); Immature Granulocytes Auto 0.21 Thou/mm3 (0.00-0.00); Lymphocytes # (Auto) 0.8 Thou/mm3 (1.0-4.8); Lymphocytes % (Auto) 5 % (10-50); Mean Corpuscular HGB Conc 31.3 g/dl (31.0-37.0); Mean Corpuscular Hemoglobin 25.0 pg (25.0-35.0); Mean Corpuscular Volume 80 fL (80-100); Monocytes # (Auto) 0.5 Thou/mm3 (0.0-0.8); Monocytes % (Auto) 3 % (0-12); Neutrophils # (Auto) 15.3 Thou/mm3 (1.8-7.7); Neutrophils % (Auto) 91 % (37-80); Nucleated Red Blood Cell # 0.00 Thou/mm3 (0.00-0.00); Nucleated Red Blood Cell % 0 /100 WBC (0); Platelet Count 245 Thou/mm3 (140-440); RDW Standard Deviation 40.8 fL (36.4-46.3); Red Blood Count 3.56 Miln/mm3 (4.00-5.20); White Blood Count 16.8 Thou/mm3 (3.6-11.0)
[2025-04-20 07:35] LABS: Alanine Aminotransferase 11 U/L (10-49); Albumin, Serum 3.6 gm/dL (3.4-4.8); Albumin/Globulin Ratio 1.7 (1.2-2.2); Alkaline Phosphatase 59 U/L (46-116); Anion Gap 8 (7-16); Aspartate Amino Transferase 12 U/L (0-34); BUN/Creatinine Ratio 33 Ratio (12-20); Bilirubin,Total 0.3 mg/dL (0.3-1.2); Blood Urea Nitrogen 60 mg/dL (9-23); Calcium 8.5 mg/dL (8.3-10.6); Calcium (Corrected) 8.8 mg/dL (8.5-10.1); Carbon Dioxide 27.7 mMol/L (20.0-31.0); Chloride 98 mMol/L (98-107); Creatinine (Component) 1.8 mg/dL (0.6-1.3); Estimated Creatinine Clearance 31.9 mL/min (>60); Globulin 2.1 gm/dL (2.3-3.5); Glucose 373 mg/dL (74-106); Magnesium 2.4 mg/dL (1.6-2.6); Osmolality,Calculated 300 (275-295); Phosphorous 4.4 mg/dL (2.4-5.1); Potassium 5.2 mMol/L (3.4-5.1); Sodium 134 mMol/L (136-145); Total Protein 5.7 gm/dL (5.7-8.2); eGFR 31 See Note
--- NOTE | 2025-04-20 07:54 | EKG_ITS ---
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
[2025-04-20] MEDS: ALBUTEROL RT 2.5 MG/0.5 ML NEBU 10 MG INH (08:15)
[2025-04-20] MEDS: METHADONE 100 MG PO (08:16)
[2025-04-20] MEDS: SODIUM CHLORIDE RT SOL 0.9% 3 ML NEBU INH (08:16)
[2025-04-20] MEDS: INSULIN GLARGINE (Lantus) 5 UNIT/0.05 ML (PER 5 UNITS) 35 UNIT SC (08:19)
[2025-04-20] MEDS: INSULIN LISPRO (AdmeLOG) 1 UNIT/0.01 ML UNIT SC ×4 (08:19→20:33)
[2025-04-20] MEDS: ASPIRIN EC 81 MG TABEC PO (08:21)
[2025-04-20] MEDS: cefTRIAXone/D5w 1gm IV premix 1 GM/50 ML BAG IV (08:21)
[2025-04-20] MEDS: APIXABAN 2.5 MG TABLET 5 MG PO ×2 (08:21→20:31)
[2025-04-20] MEDS: DIAZEPAM 5 MG TABLET PO ×2 (08:35→19:33)
[2025-04-20] MEDS: DILTIAZEM CD 180 MG CAPCR PO (08:35)
[2025-04-20] MEDS: INSULIN HUM REGULAR 1 UNIT/0.01 ML (PER UNIT) 10 UNIT IV (08:36)
[2025-04-20] MEDS: NITROGLYCERIN 0.4 MG SUBL BTL #25 SL (11:22)
--- NOTE | 2025-04-20 11:33 | PC.NURSE ---
Pt was witnessed by this feature writer eating chicken nuggets, fries and apple pie from [employer] that was brought to her by her grandpa pt was advised her diet ordered here was cardiac diet and her BS right now is 416 and she states I am still gonna eat it I am starving' notified
[2025-04-20 13:47] LABS: Troponin I 0.021 ng/mL (0.0-0.045)
--- NOTE | 2025-04-20 14:21 | PC.SS ---
Per afternoon rounding, pt continunes with chest pain due to severe COPD. Pt will stay another 2 more days. Waiting on pain control.
[2025-04-20] MEDS: HYDROmorphone INJ 2 MG/ML VIAL 1 MG IVP (14:57)
[2025-04-20] MEDS: MethylPREDNISolone SOD SUCC 62.5 MG/ML 2ML VIAL 125 MG IVP (14:57)
[2025-04-20] MEDS: AZITHROMYCIN INJ 500 MG in SODIUM CHLORIDE 0.9% 250 ML 250 ML 250 MG IV (20:32)
[2025-04-21] VITALS (17 sets, daily range): BP systolic 116–140; BP diastolic 53–85; PULSE 67–277; RESP 13–26; TEMP 36.2–37.2; O2SAT 89–100; BMI 26.5
[2025-04-21] MEDS: ALBUTEROL/IPRATROPIUM (Duoneb) RT SOL 3 ML NEBU INH ×3 (00:27→18:20)
[2025-04-21 06:12] LABS: Basophils # (Auto) 0.0 Thou/mm3 (0.0-0.2); Basophils % (Auto) 0 % (0-2.5); Eosinophils # (Auto) 0.0 Thou/mm3 (0.0-0.5); Eosinophils % (Auto) 0 % (0-10); Hematocrit 29.3 % (36.0-46.0); Hemoglobin 9.3 g/dL (12.0-16.0); Immature Granulocytes Auto 0.53 Thou/mm3 (0.00-0.00); Lymphocytes # (Auto) 0.7 Thou/mm3 (1.0-4.8); Lymphocytes % (Auto) 4 % (10-50); Mean Corpuscular HGB Conc 31.7 g/dl (31.0-37.0); Mean Corpuscular Hemoglobin 25.2 pg (25.0-35.0); Mean Corpuscular Volume 79 fL (80-100); Monocytes # (Auto) 0.2 Thou/mm3 (0.0-0.8); Monocytes % (Auto) 1 % (0-12); Neutrophils # (Auto) 16.0 Thou/mm3 (1.8-7.7); Neutrophils % (Auto) 91 % (37-80); Nucleated Red Blood Cell # 0.00 Thou/mm3 (0.00-0.00); Nucleated Red Blood Cell % 0 /100 WBC (0); Platelet Count 284 Thou/mm3 (140-440); RDW Standard Deviation 40.8 fL (36.4-46.3); Red Blood Count 3.69 Miln/mm3 (4.00-5.20); White Blood Count 17.5 Thou/mm3 (3.6-11.0)
[2025-04-21] MEDS: FLUTICASONE/SALMETEROL 250/50 14 DOSE INH 1 PUFF INH ×2 (06:14→18:20)
[2025-04-21 06:43] LABS: Alanine Aminotransferase 10 U/L (10-49); Albumin, Serum 3.6 gm/dL (3.4-4.8); Albumin/Globulin Ratio 1.6 (1.2-2.2); Alkaline Phosphatase 63 U/L (46-116); Anion Gap 9 (7-16); Aspartate Amino Transferase 11 U/L (0-34); BUN/Creatinine Ratio 38 Ratio (12-20); Bilirubin,Total 0.3 mg/dL (0.3-1.2); Blood Urea Nitrogen 90 mg/dL (9-23); Calcium 8.5 mg/dL (8.3-10.6); Calcium (Corrected) 8.8 mg/dL (8.5-10.1); Carbon Dioxide 24.4 mMol/L (20.0-31.0); Chloride 96 mMol/L (98-107); Creatinine (Component) 2.4 mg/dL (0.6-1.3); Estimated Creatinine Clearance 23.9 mL/min (>60); Globulin 2.3 gm/dL (2.3-3.5); Glucose 361 mg/dL (74-106); Magnesium 2.2 mg/dL (1.6-2.6); Osmolality,Calculated 301 (275-295); Phosphorous 5.9 mg/dL (2.4-5.1); Potassium 5.6 mMol/L (3.4-5.1); Sodium 129 mMol/L (136-145); Total Protein 5.9 gm/dL (5.7-8.2); eGFR 22 See Note
[2025-04-21] MEDS: ASPIRIN EC 81 MG TABEC PO (08:15)
[2025-04-21] MEDS: cefTRIAXone/D5w 1gm IV premix 1 GM/50 ML BAG IV (08:15)
[2025-04-21] MEDS: DILTIAZEM CD 180 MG CAPCR PO (08:15)
[2025-04-21] MEDS: APIXABAN 2.5 MG TABLET 5 MG PO ×2 (08:15→20:49)
[2025-04-21] MEDS: METHADONE 100 MG PO (08:16)
[2025-04-21] MEDS: NICOTINE PATCH 21 MG/24 HR PATCH.TD24 TOP (08:17)
[2025-04-21] MEDS: INSULIN LISPRO (AdmeLOG) 1 UNIT/0.01 ML UNIT SC ×4 (08:18→20:54)
[2025-04-21] MEDS: INSULIN GLARGINE (Lantus) 5 UNIT/0.05 ML (PER 5 UNITS) 35 UNIT SC (08:18)
[2025-04-21] MEDS: SEVELAMER CARBONATE 800 MG TABLET PO (09:40)
[2025-04-21] MEDS: DIAZEPAM 5 MG TABLET PO ×2 (09:41→20:50)
[2025-04-21] MEDS: INSULIN GLARGINE (Lantus) 5 UNIT/0.05 ML (PER 5 UNITS) SC (09:45)
[2025-04-21] MEDS: INSULIN HUM REGULAR 1 UNIT/0.01 ML (PER UNIT) 10 UNIT IV ×2 (09:46→14:30)
[2025-04-21] MEDS: SOD POLYSTYRENE SULFON SUSP 15 GM/60 ML BTL 30 GM PO (09:48)
--- NOTE | 2025-04-21 09:57 | PD.RESPRO ---
Documentation for date of: 04/20/25 Subjective Subjective Interval history: The patient was evaluated the bedside, this morning she was complaining of chest pain, rated 9/10 intensity. Stated that hurts to breathe . Pointed to lower rib cage bilaterally. EKG was done which was negative for acute ischemic changes, troponins were ordered which were negative, also of note patient had similar symptoms during presentation and had negative troponins on admission. On physical exam, noted bilateral wheezing and rhonchi, worse than yesterday, probably contributing to patient's symptoms. Intensified the patient's IV steroids, increased nebulizations. Patient did get her methadone and Valium this morning. Also received IV Dilaudid x 1 for pain. Patient was asymptomatic for the rest of the day. Also noted hyperglycemia, increased patient's insulin dose, likely hyperglycemia secondary to steroid use. Exam Vital Signs Temp Pulse Resp BP Pulse Ox O2 Del Method O2 Flow Rate 98.9 F 72 15 140/79 H 98 Nasal Cannula 3 04/21/25 07:22 04/21/25 08:15 04/21/25 07:22 04/21/25 08:15 04/21/25 07:22 04/21/25 07:22 04/21/25 07:22 Narrative Exam General Appearance: Alert & Oriented to person, place, time, and condition; well-nourished female who is lying in bed in moderate respiratory distress. HEENT: Skull symmetrical and atraumatic. Conjunctivae pink and moist. Pupils equal, round, reactive to light and accommodation (PERRL). External ear without lesion or discharge. Straight, nares patient, mucosa pink, no discharge. No thyroid nodule appreciated. No cervical lymphadenopathy. Cardio: Normal Rate and Rhythm with S1 and S2 heart sounds. No murmurs or extra heart sounds auscultated. No bruits on carotid auscultation. No peripheral edema or cyanosis. Lungs: Noted wheezing and rhonchi bilaterally, Abdomen: Non-tender, Non-distended, Normal Reactive Bowel Sounds Neuro: Alert, cooperative, oriented to person, place, time, and condition. Speech clear. CN grossly intact. Upper motor strength 5/5 and Lower motor strength 5/5. Sensation intact. Objective Labs 04/21/25 04:32 04/21/25 12:12 Labs: Laboratory Results - last 24 hr 04/20/25 04/21/25 13:08 04:32 WBC 17.5 H RBC 3.69 L Hgb 9.3 L Hct 29.3 L MCV 79 L MCH 25.2 MCHC 31.7 RDW Std Deviation 40.8 Plt Count 284 D Neut % (Auto) 91 H Lymph % (Auto) 4 L [place] % (Auto) 1 Eos % (Auto) 0 Baso % (Auto) 0 Neut # (Auto) 16.0 H Lymph # (Auto) 0.7 L [place] # (Auto) 0.2 Eos # (Auto) 0.0 Baso # (Auto) 0.0 Immature Gran # (Auto) 0.53 H Absolute Nucleated RBC 0.00 Immature Gran % 3 H Nucleated RBC % 0 Sodium 129 L Potassium 5.6 H Chloride 96 L Carbon Dioxide 24.4 Anion Gap 9 BUN 90 H Creatinine 2.4 H D Estim Creat Clear Calc 23.9 L eGFR 22 L BUN/Creatinine Ratio 38 H Glucose 361 H Calculated Osmolality 301 H Calcium 8.5 Corrected Calcium 8.8 Phosphorus 5.9 H Magnesium 2.2 Total Bilirubin 0.3 AST 11 ALT 10 Alkaline Phosphatase 63 Troponin I 0.021 Total Protein 5.9 Albumin 3.6 Globulin 2.3 Albumin/Globulin Ratio 1.6 ABG Interpretation ABG results: 04/18/25 20:40 VBG pH 7.47 VBG pCO2 36 VBG pO2 72 H VBG Base Excess 2 Quality Measures Quality Measures none Assessment & Plan Assessment Current Active Medications: Generic Name Dose Route Start Last Admin Trade Name Freq PRN Reason Stop Dose Admin Acetaminophen 650 mg 04/19/25 07:42 04/19/25 08:17 Acetaminophen 325 Mg Tablet PO 05/18/25 22:12 650 mg Q6H PRN Administration Mild Pain 1-3 or fever >100.1 Albuterol/Ipratropium 3 ml 04/19/25 01:00 04/21/25 06:13 Albuterol/Ipratropium (Duoneb) Rt Blanca 3 Ml Nebu INH 05/19/25 00:59 3 ml Q6HRRT KIP Administration Apixaban 5 mg 04/19/25 09:00 04/21/25 08:15 Apixaban 2.5 Mg Tablet PO 05/19/25 08:59 5 mg BID KIP Administration Aspirin 81 mg 04/19/25 09:00 04/21/25 08:15 Aspirin Ec 81 Mg Tabec PO 05/19/25 08:59 81 mg QDAY KIP Administration Buspirone HCl 5 mg 04/19/25 09:00 04/21/25 08:15 Buspirone Hcl 5 Mg Tablet PO 05/19/25 08:59 5 mg QDAY KIP Administration Methadone 100 Mg 0 ea 04/19/25 14:00 04/21/25 08:16 Cups PO 05/19/25 13:59 1 bottle DAILY KIP Administration Protocol Dextrose 25 ml 04/18/25 22:19 Dextrose 50%-Water Inj 50 Ml Syringe IV 05/18/25 22:18 Q15MIN PRN BG 50-70 responsive npo pt Dextrose 50 ml 04/18/25 22:19 Dextrose 50%-Water Inj 50 Ml Syringe IV 05/18/25 22:18 Q15MIN PRN BG <50 OR BG <70 & pt unresponsive Diazepam 5 mg 04/18/25 22:26 04/21/25 09:41 Diazepam 5 Mg Tablet PO 04/24/25 08:59 5 mg BID PRN Administration MUSCLE SPASMS Diltiazem HCl 180 mg 04/20/25 09:00 04/21/25 08:15 Diltiazem Cd 180 Mg Capcr PO 05/20/25 08:59 180 mg QDAY KIP Administration Glucagon 1 mg 04/18/25 22:19 Glucagon Inj 1 Mg Vial IM Q15MIN PRN BG <70, and no IV access Hydralazine HCl 100 mg 04/19/25 08:45 04/21/25 05:26 Hydralazine Hcl 25 Mg Tablet PO 05/19/25 08:44 100 mg TID KIP Administration Azithromycin 500 mg/ Sodium 250 mls @ 250 mls/hr 04/19/25 21:00 04/21/25 00:09 Chloride IV 04/26/25 20:59 Infused QDAY@2100 KIP Infusion Ceftriaxone Sodium/Dextrose 1 gm in 50 mls @ 100 mls/hr 04/19/25 09:00 04/21/25 08:15 Rocephin/D5w 1gm Iv Premix IV 04/26/25 08:59 100 mls/hr QDAY KIP Administration Insulin Glargine 40 unit 04/22/25 09:00 Insulin Glargine (Lantus) 5 Unit/0.05 Ml (Per 5 Units) SC 05/22/25 08:59 QDAY KIP Insulin Human Lispro 0 unit 04/19/25 21:00 04/21/25 08:18 Insulin Lispro (Admelog) 1 Unit/0.01 Ml Unit SC 05/19/25 20:59 5 unit ACHS KIP Administration Protocol Methylprednisolone Sodium Succinate 60 mg 04/20/25 21:00 04/21/25 08:16 Methylprednisolone Sod Succ 40 Mg Vial IVP 04/27/25 20:59 60 mg BID KIP Administration Nicotine 21 mg 04/21/25 09:00 04/21/25 08:17 Nicotine Patch 21 Mg/24 Hr Patch.Td24 TOP 05/21/25 08:59 21 mg QDAY KIP Administration Nitroglycerin 0.4 mg 04/20/25 08:14 04/20/25 11:22 Nitroglycerin 0.4 Mg Subl Btl #25 SL 0.4 mg Q5MIN PRN Administration CHEST PAIN Ondansetron HCl 4 mg 04/18/25 22:13 04/20/25 02:41 Ondansetron Inj 2 Mg/Ml Inj 2 Ml IVP 05/18/25 22:12 4 mg Q6H PRN Administration NAUSEA OR VOMITING Protocol Pantoprazole Sodium 40 mg 04/20/25 09:00 04/21/25 08:15 Pantoprazole Inj 40 Mg Vial IVP 05/20/25 08:59 40 mg QDAY KIP Administration Fluticasone/Salmeterol 1 puff 04/19/25 07:00 04/21/25 06:14 Fluticasone/Salmeterol 250/50 14 Dose Inh INH 05/19/25 06:59 1 puff BIDRT KIP Administration Sennosides 1 tab 04/18/25 22:13 Senna Tablet PO 05/18/25 22:12 QDAY PRN constipation Protocol Sodium Chloride 3 ml 04/20/25 08:01 04/20/25 08:16 Sodium Chloride Rt [place]anca 0.9% 3 Ml Nebu INH 05/20/25 08:00 3 ml PRN PRN Administration SOLN Spironolactone 50 mg 04/19/25 09:00 04/19/25 09:53 Spironolactone 25 Mg Tablet PO 05/19/25 08:59 50 mg QDAY KIP Administration Plan Plan Patient is a 64 year old female with past medical history of COPD (2-3 L home oxygen), insulin-dependent type 2 diabetes mellitus, CKD likely stage IIIB, Afib on Eliquis, and substance use disorder on methadone who presented to the ED via EMS 04/18 with one day history of worsening shortness of breath and was admitted for acute hypoxic respiratory failure due to COPD exacerbation and possible new-onset CHF pending echo. #Acute Hypoxic Respiratory Failure secondary to #COPD Exacerbation #COPD Patient endorsed a one day history of worsening shortness of breath, similar to previous episodes. Patient endorsed a feeling of chest tightness and tactile fever. Patient denied sick contacts. Patient stated she has used her Trelegy inhaler once a day and her albuterol 4x a day since her previous discharge 04/06 with minimal relief. Patient endorsed a cough of light yellow sputum production. Possible differentials: Likely COPD exacerbation given the patient's history and comparable hospitalizations in the past, allergies given poor air quality, and less likely, PE, as this patient isn't tachycardic and does not have any acute risk factors, such as DVT surgery or recent long distance travel making her susceptible to a clot. In addition, the patient's acute episode of dyspnea meets the criteria for COPD exacerbation CXR 04/18 demonstrated normal findings VBG 04/18 pH 7.47 pCO2 36 pO2 72 O2 sat 97 Plan: -Maintain patient's oxygen saturation between 88% and 92% given history of COPD -Continue DuoNeb 3ml Q4HRRT -Methylprednisolone 60 mg IVP BID, added methylprednisolone 125 mg x 1 -Fluticasone/Salmoterol 1 puff BIDRT -Monitor patient's oxygen status #Chest pain Likely musculoskeletal origin, noncardiac etiology, negative troponins on admission and today, EKG negative for acute ischemic changes. ? Anticipate improvement in chest pain following treatment of COPD and pneumonia as respiratory distress and tachypnea is contributing to increased pain on breathing. ? Patient is already on Eliquis, anticoagulation to be continued. ? Pain relief as indicated #Leukocytosis #? Reactive Leukocytosis Patient is producing sputum of light yellow color via cough. Patient has a history of green mucus production and is more susceptible to infection given reduced ability to clear pathogens. In addition, patient endorsed a tactile fever. 04/18 influenza RSV strep group A negative Pertinent labs: WBC 16.6 Possible reasons: infection given this patient's history of poor respiratory health, reactive from stress of increased work of breathing, inhaler use leading to beta agonist activity and release of inflammatory mediators Plan: -IV azithromycin 500 mg QD and IV ceftriaxone 1 g QD (04/19-04/26) #Lower Peripheral Edema #? Possible Congestive Heart Failure Patient has not been formally diagnosed with heart failure. Patient was given IV Lasix 40 mg x1 04/18. No crackles were heard on examination. Most recent echo 02/16/24: EF 65-70% AV peak velocity 202 cm/s AV peak gradient 16.3 mmHg RSVP 12 mmHg RAP 5 mmHg trace tricuspid regurgitation Pertinent labs 04/18: BNP 116 Plan: -Single Lasix 40 mg X 04/18 -Echo, pending results -Fluid restricted -K>4 and mg >2 #Atrial Fibrillation, rate controlled #History of Atrial Fibrillation with rvr Patient has a history of atrial fibrillation with RVR. 04/18 EKG: sinus tachycardia Plan: -Continue Eliquis 5 mg PO BID -Holding off Metoprolol Succinate 25 mg once daily given, COPD exacerbation -Consider switching to different agent. #Hypertension Patient has a long standing history of hypertension. On spironolactone, metazalone, lisinopril, and hydralazine at home. Patient presented to the ED with BP 137/82 Plan: -Restarted Hydralazine 100 mg PO TID -Spironolactone 50 mg PO QD -Amlodipine 10 mg PO QD #Type 2 Diabetes Mellitus, Insulin-Dependent #Hyperglycemia Patient's FSBG 04/19 am 561. Hyperglycemia likely secondary to IV steriods . 04/13 A1C: 6.4 Patient was given Insulin 10 units morning 04/19 Plan: -Resume Glargine 35 units -Sliding scale increased to intermediate -monitor fasting blood glucose #Chronic Kidney Disease, likey Stage IIIB Patient has a history of CKD. Remained stable since the last admission 04/04. Pertinent labs 04/19: BUN 33 Cr 1.6 GFR 36 Plan: -Monitor renal panel #Substance Use Disorder (Methamphetamine and Heroin) Patient has a long history of methamphetamine and heroin use Plan: -Continue patient's Methadone 100mg PO QD #Anxiety Patient has a history of anxiety. Plan: -Continue patient's Buspirone 5 mg PO QD and Diazepam 5 mg PO BID PRN Health Maintenance: Lines: PIV Diet: Cardiac Bowel: Senna GI prophylaxis: None DVT prophylaxis: SCD Dispo: Pending echo Code: Full The patient's plan was discussed with attending Dr. Sid Atkinson pgy 3 Attending Provider Attestation/Addendum I have examined the patient, reviewed labs and imaging findings, discussed the case with the resident(s), and reviewed entered orders. I agree with the plan of care as outlined in this note, with these additional summaries/recommendations: Patient seen at bedside. No acute overnight events. Today patient endorses moderate to severe chest pain. On chart review patient has a lengthy history of chest pain and previously diagnosed with Prinzmetal angina. Of EKG obtained which did not reveal any acute ST wave changes and troponin ordered. Discontinue patient's home metoprolol and start diltiazem. Patient seen receiving breathing treatment. Patient diagnosed with acute on chronic hypoxic respiratory failure secondary to COPD exacerbation. Continue breathing treatments, IV azithromycin, and IV steroids. We will be cautious with steroids given significant hyperglycemia. At baseline patient uses 2 L nasal cannula at home. Patient also noted to have some bilateral lower extremity edema although echocardiogram revealed normal ejection fraction of 60% and lower extremity swelling most likely dependent edema. Patient's CKD appears stable. Creatinine appears to trend between 1.6 and 1.8.. Leukocytosis is present which is most likely secondary to chronic steroids. Continue home Eliquis for chronic atrial fibrillation. Continue methadone at home dose. Patient has underlying diabetes mellitus type 2 with significant hyperglycemia. A1c 6.3%. We will continue to adjust basal and bolus regimen until patient's at goal of 140-180 while hospitalized. Resume home antihypertensives. Patient updated on the plan and agreement. All questions answered to satisfaction. Please see residents note for additional details of management. Dr. Craig MD
--- NOTE | 2025-04-21 10:40 | XR_ITS ---
Examination: AP chest single view Technique: Portable sitting AP chest single view. Date and time: April 21, 2025, 1109 hrs. Comparison April 18, 2025 Indications: Shortness of breath today. Findings: Heart size. Mild prominence pulmonary vasculature. No lobar pneumonia or pulmonary edema. Moderate osteopenia Impression: Mild prominence of pulmonary vasculature
[2025-04-21] MEDS: SODIUM CHLORIDE RT SOL 0.9% 3 ML NEBU INH (11:03)
[2025-04-21] MEDS: ALBUTEROL RT 2.5 MG/0.5 ML NEBU 10 MG INH (11:03)
--- NOTE | 2025-04-21 11:54 | PD.RESCONSUL ---
HPI Data of Consult Consult date: 04/20/25 Requesting Physician: Lul Guillen MD Admitting Provider: Lul Guillen MD Attending Provider: Lul Guillen MD Primary Care Provider: Apolinar Tai MD Consult Narrative Reason for consult: Acute renal failure History of present illness: Mr. Diaz is a 63-year-old female with past medical history of COPD on 2 L home oxygen, A-fib, hypertension, CKD stage IIIb, [id number] type 2 diabetes, polysubstance use disorder presents to the ED on 04/18 with increased episodes of shortness of breath. Patient states that ever since being discharged on 04/06 for COPD exacerbation she was doing okay; however, tonight she started developing increased level of shortness of breath. Patient states that she tried using her home inhalers including albuterol but those did not help her symptoms. Patient denies having any sick contacts; however, she is reporting some sore throat which has worsened in the past several days. Patient otherwise denies any fever/chills or any other concerning cardiac symptoms at this time. Nephrology consulted for management of THEO. Home medications included amlodipine, aspirin, BuSpar, clonidine, Valium, Eliquis, Trelegy, Lasix, hydralazine, Basaglar, DuoNeb, lactulose, lisinopril, meclizine, methadone, metolazone, metoprolol, Aldactone 04/21/2025: Patient seen and examined at bedside while receiving Duoneb treatment. Complains of diffuse chest pain/tightness, nausea and epigastric pain. Previously seen by nephrology team mid March for contrast induced THEO which resolved with fluids. On current admission, baseline Cr on chart review 1.2-1.4 and on 04/20, creatinine was 1.8, increasing to 2.4 today. Most recent labs Na 130, K 5, Cl 95, BUN 102, Cr 2.3, glucose 444, phos 6.2. cc:: cc: Lul Guillen MD Review of Systems Review of Systems Systems Reviewed: All systems reviewed, normal except as documented Past Medical History Past Medical History NEUROLOGIC: Positive Neurological Disorders, Cerebrovascular Accident and Meningitis; Negative Transient Ischemic Attacks (TIA), Alzheimer's Disease, Parkinson's Disease, Brain Tumor, Seizures, Multiple Sclerosis, Cerebral Palsy, Amyotrophic Lateral Sclerosis (ALS/Regina Gehrig's), Spina Bifida, Paralysis, Peripheral Neuropathy, Farrar's Palsy, Subdural Hematoma, Migraine, Head Trauma, Spinal Cord Injury or Traumatic Brain Injury CARDIAC: Positive Cardiac Disorders, Myocardial Infarction, Cardiac Arrhythmia, Atrial Fibrillation, Angina, Coronary Artery Disease, Atherosclerotic Heart Disease, Hypercholesterolemia, Congestive Heart Failure, Cardiomyopathy, Edema and Hypertension; Negative Varicose Veins RESPIRATORY: Positive Chronic Obstructive Pulmonary Disease (COPD), Asthma, Bronchitis, Emphysema, Pneumonia and Smoking (Smoked from age [age] (1 pack/day), currently does not smoke); Negative Pulmonary Fibrosis, Tuberculosis, Pulmonary Embolism, Pulmonary Edema or Sleep Apnea GASTROINTESTINAL: Negative Gastrointestinal Disorders, Hepatitis, Cirrhosis, Pancreatitis, Celiac Disease, Gall Bladder Disease, Gastrointestinal Bleed, Esophageal Varices, Denise's Esophagus, Colitis, Ulcerative Colitis, Diverticulitis, Diverticulosis, Ulcer, Irritable Bowel, Crohn's Disease, Obstructive Bowel, Hiatal Hernia, Hemorrhoids, Gastroesophageal Reflux Disease or Obesity GENITOURINARY: Positive Renal Disease; Negative Genitourinary Disorders, Kidney Stones, Polycystic Kidney Disease, Neurogenic Bladder, Inguinal Hernia, Dialysis or Benign Prostatic Hyperplasia REPRODUCTIVE: Negative Pelvic Inflammatory Disease MUSCULOSKELETAL: Positive Musculoskeletal Disorders, Arthritis and Osteoporosis; Negative Muscular Dystrophy, Myasthenia Gravis, Marfan's Syndrome, Rheumatoid Arthritis, Degenerative Disk Disease, Gout, Scoliosis, Carpal Tunnel Syndrome, Fibromyalgia, Fractures, Degenerative Joint Disease, Osteomyelitis or Poliovirus ENT: Positive Cataracts and Blind; Negative Glaucoma, Retinal Detachment, Macular Degeneration, Ear Infection, Deafness, Head Trauma or Eye Prosthesis ENDOCRINE: Positive Endocrine Disorders and Diabetes Mellitus Type 2; Negative Diabetes Mellitus Type 1, Hypoglycemia, Santino's Syndrome, [place] Vincent's Disease, Hyperthyroidism, Hypothyroidism, Parathyroid Disease, Pituitary Disease, Systemic Lupus Erythematosus, Syndrome of Inappropriate Antidiuretic Hormone (SIADH), Adrenal Disease or Graves' Disease HEMATOLOGIC: Positive Anemia; Negative Blood Disorders, Leukemia, Hemophilia, Thalassemia, Sickle Cell Disease or Clotting Problems PSYCHO/SOCIAL: Positive Recreational Drug Use, Depression and Anxiety; Negative Psychiatric Problems, Schizophrenia, Behavior Problems, Self-Mutilation, Attention Deficit Disorder, Attention Deficit Hyperactivity Disorder, Depression, Post Traumatic Stress Disorder or Eating Disorder OTHER HISTORY: Positive Hospitalization, Shingles, Falls and Blood Transfusions; Negative Autoimmune Disease, Down Syndrome, Autism, Developmental Delay, Anesthesia Reactions, Organ Transplant, Chemotherapy, Radiation Therapy, MRSA, Human Immunodeficiency Virus (HIV), Chicken Pox, Measles, Mumps, Rubella (Kiswahili Measles), Pertussis, Clostridium Difficile or Cancer Family History FAMILY HISTORY: Positive Family Cardiac Disorders; Negative Family Psychiatric Problems, Family Respiratory Disorders, Family Gastrointestinal Problems, Family Cancer, Family Surgery or Family Anesthesia Reaction Surgical History SURGICAL: Positive Thyroidectomy, Eye Surgery, Tonsillectomy, Abdominal Surgery and Bowel Surgery; Negative Cardiac Surgery, Open Heart Surgery, Coronary Artery Bypass Graft, Valve Replacement, Vascular Surgery, Coronary Stent, Cardiac Catheterization, Pacemaker, Angiogram, Auto Implanted Cardiovert Defib, Carotid Endarterectomy, Endocrine Surgery, Ear Surgery, Tympanostomy Tube, Nose Surgery, Oral Surgery, Adenoidectomy, Cochlear Implant, Corneal Transplant, Throat Surgery, Tracheostomy, Gastric Bypass Surgery, Gastrostomy, Nephrectomy, Joint Replacement, Amputation, Open Reduction Internal Fixation, Arthroscopy, Neurologic Surgery, Brain Shunt, Mastectomy, Lumpectomy, Hysterectomy, Tubal Ligation, Section or Organ Transplant Social History SMOKING STATUS: Current some day smoker SECOND HAND EXPOSURE: No SUBSTANCE USE: former substance user, heroin and methamphetamine (Former drug use, states she quit 20 years ago; tested positive for methamphetamine 03/31/2023.) 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, 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 Exam Vital Signs Temp Pulse Resp BP Pulse Ox O2 Del Method O2 Flow Rate 97.2 F 86 15 138/85 H 99 Nasal Cannula 2 04/21/25 11:53 04/21/25 11:53 04/21/25 11:53 04/21/25 11:53 04/21/25 11:53 04/21/25 07:22 04/21/25 11:06 Narrative Exam GENERAL: AOx3, mild respiratory distress HEENT: NC/AT, mucous membranes moist, bilateral sclera anicteric CARDIOVASCULAR: regular rate and rhythm, S1/S2 present, no murmurs appreciated PULMONARY: b/l/ diffuse inspiratory and expiratory wheezes ABDOMINAL: soft, non-tender, non-distended, no rebound/guarding, bowel sounds present EXTREMITIES: no peripheral edema SKIN: warm and dry, intact, no rashes NEURO: CN II-XII grossly intact, no focal deficits, alert, following commands Results Labs 04/21/25 04:32 04/21/25 12:12 Labs: Short CBC 04/21/25 Range/Units 04:32 WBC 17.5 H (3.6-11.0) Thou/mm3 Hgb 9.3 L (12.0-16.0) g/dL Hct 29.3 L (36.0-46.0) % Plt Count 284 D (140-440) Thou/mm3 BMP 04/21/25 04:32 Sodium 129 L Potassium 5.6 H Chloride 96 L Carbon Dioxide 24.4 BUN 90 H Creatinine 2.4 H D Glucose 361 H Calcium 8.5 Cardiac Enzymes 04/20/25 Range/Units 13:08 Troponin I 0.021 (0.0-0.045) ng/mL Liver Function 04/21/25 Range/Units 04:32 Total Bilirubin 0.3 (0.3-1.2) mg/dL AST 11 (0-34) U/L ALT 10 (10-49) U/L Alkaline Phosphatase 63 (46-116) U/L Albumin 3.6 (3.4-4.8) gm/dL ABG Interpretation ABG results: 04/18/25 20:40 VBG pH 7.47 VBG pCO2 36 VBG pO2 72 H VBG Base Excess 2 Quality Measures Quality Measures none Medications Home Medications and Allergies Home Medications ?Medication ?Instructions ?Recorded ?Confirmed ?Type methadone 10 mg/5 mL oral solution 100 mg PO QDAY 02/07/24 04/21/25 History nitroglycerin 0.4 mg sublingual 0.4 mg buccal Q5MIN PRN Chest Pain 02/07/24 04/21/25 History tablet apixaban 5 mg tablet (Eliquis) 5 mg PO Q12H 01/02/25 04/21/25 History insulin glargine 100 unit/mL (3 26 unit subcut QAM 01/03/25 04/21/25 History mL) subcutaneous pen (Basaglar KwikPen U-100 Insulin) amlodipine 5 mg tablet 10 mg PO QDAY 04/04/25 04/21/25 History buspirone 5 mg tablet 5 mg PO QDAY 04/04/25 04/21/25 History clonidine HCl 0.1 mg tablet 0.1 mg PO BID 04/04/25 04/21/25 History hydralazine 100 mg tablet 100 mg PO TID 04/04/25 04/21/25 History lisinopril 40 mg tablet 40 mg PO QDAY 04/04/25 04/21/25 History Held on 04/06/25. Instructions: Resume on 04/19/25. HOLD until she follows up PCP and then resume Lisinopril after THEO resolved. loratadine 10 mg tablet (Allergy 10 mg PO QDAY 04/04/25 04/21/25 History Relief (loratadine)) metolazone 5 mg tablet 5 mg PO QDAY 04/04/25 04/21/25 History metoprolol succinate 25 mg 25 mg PO QDAY 04/04/25 04/21/25 History tablet,extended release 24 hr spironolactone 50 mg tablet 50 mg PO QDAY 04/04/25 04/21/25 History Allergies Allergy/AdvReac Type Severity Reaction Status Date / Time codeine Allergy Severe RASH Verified 04/18/25 20:36 diphenhydramine HCl Allergy Severe Hives Verified 04/18/25 20:36 egg Allergy Severe Rash Verified 04/18/25 20:36 Penicillins Allergy Severe SWELLING, Verified 04/18/25 20:36 RESP DISTRESS pentazocine (From Evaristo) Allergy Severe Hives Verified 04/18/25 20:36 Visit Medications Acetaminophen (Acetaminophen 325 Mg Tablet) 650 mg PO Q6H PRN PRN Reason: Mild Pain 1-3 or fever >100.1 Stop: 05/18/25 22:12 Last Admin: 04/19/25 08:17 Dose: 650 mg Albuterol/Ipratropium (Albuterol/Ipratropium (Duoneb) Rt Blanca 3 Ml Nebu) 3 ml INH Q6HRRT [facility] Stop: 05/19/25 00:59 Last Admin: 04/21/25 11:37 Dose: Not Given Apixaban (Apixaban 2.5 Mg Tablet) 5 mg PO BID [facility] Stop: 05/19/25 08:59 Last Admin: 04/21/25 08:15 Dose: 5 mg Aspirin (Aspirin Ec 81 Mg Tabec) 81 mg PO QDAY [facility] Stop: 05/19/25 08:59 Last Admin: 04/21/25 08:15 Dose: 81 mg Buspirone HCl (Buspirone Hcl 5 Mg Tablet) 5 mg PO QDAY [facility] Stop: 05/19/25 08:59 Last Admin: 04/21/25 08:15 Dose: 5 mg Methadone 100 Mg (Cups) 0 ea PO DAILY [facility]; Protocol Stop: 05/19/25 13:59 Last Admin: 04/21/25 08:16 Dose: 1 bottle Dextrose (Dextrose 50%-Water Inj 50 Ml Syringe) 25 ml IV Q15MIN PRN PRN Reason: BG 50-70 responsive npo pt Stop: 05/18/25 22:18 Dextrose (Dextrose 50%-Water Inj 50 Ml Syringe) 50 ml IV Q15MIN PRN PRN Reason: BG <50 OR BG <70 & pt unresponsive Stop: 05/18/25 22:18 Diazepam (Diazepam 5 Mg Tablet) 5 mg PO BID PRN PRN Reason: MUSCLE SPASMS Stop: 04/24/25 08:59 Last Admin: 04/21/25 09:41 Dose: 5 mg Diltiazem HCl (Diltiazem Cd 180 Mg Capcr) 180 mg PO QDAY [facility] Stop: 05/20/25 08:59 Last Admin: 04/21/25 08:15 Dose: 180 mg Glucagon (Glucagon Inj 1 Mg Vial) 1 mg IM Q15MIN PRN PRN Reason: BG <70, and no IV access Hydralazine HCl (Hydralazine Hcl 25 Mg Tablet) 100 mg PO TID [facility] Stop: 05/19/25 08:44 Last Admin: 04/21/25 05:26 Dose: 100 mg Azithromycin 500 mg/ Sodium (Chloride) 250 mls @ 250 mls/hr IV QDAY@2100 [facility] Stop: 04/26/25 20:59 Last Infusion: 04/21/25 00:09 Dose: Infused Ceftriaxone Sodium/Dextrose (Rocephin/D5w 1gm Iv Premix) 1 gm in 50 mls @ 100 mls/hr IV QDAY [facility] Stop: 04/26/25 08:59 Last Admin: 04/21/25 08:15 Dose: 100 mls/hr Insulin Glargine (Insulin Glargine (Lantus) 5 Unit/0.05 Ml (Per 5 Units)) 40 unit SC QDAY [facility] Stop: 05/22/25 08:59 Insulin Human Lispro (Insulin Lispro (Admelog) 1 Unit/0.01 Ml Unit) 0 unit SC ACHS [facility]; Protocol Stop: 05/19/25 20:59 Last Admin: 04/21/25 08:18 Dose: 5 unit Methylprednisolone Sodium Succinate (Methylprednisolone Sod Succ 40 Mg Vial) 60 mg IVP BID [facility] Stop: 04/27/25 20:59 Last Admin: 04/21/25 08:16 Dose: 60 mg Nicotine (Nicotine Patch 21 Mg/24 Hr Patch.Td24) 21 mg TOP QDAY [facility] Stop: 05/21/25 08:59 Last Admin: 04/21/25 08:17 Dose: 21 mg Nitroglycerin (Nitroglycerin 0.4 Mg Subl Btl #25) 0.4 mg SL Q5MIN PRN PRN Reason: CHEST PAIN Last Admin: 04/20/25 11:22 Dose: 0.4 mg Ondansetron HCl (Ondansetron Inj 2 Mg/Ml Inj 2 Ml) 4 mg IVP Q6H PRN; Protocol PRN Reason: NAUSEA OR VOMITING Stop: 05/18/25 22:12 Last Admin: 04/20/25 02:41 Dose: 4 mg Pantoprazole Sodium (Pantoprazole Inj 40 Mg Vial) 40 mg IVP QDAY [facility] Stop: 05/20/25 08:59 Last Admin: 04/21/25 08:15 Dose: 40 mg Fluticasone/Salmeterol (Fluticasone/Salmeterol 250/50 14 Dose Inh) 1 puff INH BIDRT [facility] Stop: 05/19/25 06:59 Last Admin: 04/21/25 06:14 Dose: 1 puff Sennosides (Senna Tablet) 1 tab PO QDAY PRN; Protocol PRN Reason: constipation Stop: 05/18/25 22:12 Sodium Chloride (Sodium Chloride Rt Blanca 0.9% 3 Ml Nebu) 3 ml INH PRN PRN PRN Reason: SOLN Stop: 05/21/25 10:38 Last Admin: 04/21/25 11:03 Dose: 3 ml Spironolactone (Spironolactone 25 Mg Tablet) 50 mg PO QDAY [facility] Stop: 05/19/25 08:59 Last Admin: 04/19/25 09:53 Dose: 50 mg Discontinued Medications Acetaminophen (Acetaminophen 325 Mg Tablet) 650 mg PO Q6H PRN PRN Reason: PAIN SCALE 1-3 (mild Stop: 05/18/25 22:12 Last Admin: 04/19/25 00:14 Dose: 650 mg Albuterol (Albuterol Rt 2.5 Mg/0.5 Ml Nebu) 10 mg INH X1 ONE Stop: 04/18/25 21:01 Last Admin: 04/18/25 20:55 Dose: 10 mg Albuterol (Albuterol Rt 2.5 Mg/0.5 Ml Nebu) 10 mg INH X1 ONE Stop: 04/20/25 08:02 Last Admin: 04/20/25 08:15 Dose: 10 mg Albuterol (Albuterol Rt 2.5 Mg/0.5 Ml Nebu) 10 mg INH X1 ONE Stop: 04/21/25 10:40 Last Admin: 04/21/25 11:03 Dose: 10 mg Amlodipine Besylate (Amlodipine Besylate 5 Mg Tablet) 10 mg PO QDAY KIP Stop: 05/19/25 08:59 Last Admin: 04/19/25 08:17 Dose: 10 mg Clonidine (Clonidine Hcl 0.1 Mg Tablet) 0.1 mg PO BID KIP Stop: 05/19/25 08:59 Last Admin: 04/19/25 21:05 Dose: Not Given Dextrose (Dextrose 50%-Water Inj 50 Ml Syringe) 25 ml IV Q15MIN PRN PRN Reason: BG 50-70 responsive npo pt Stop: 05/19/25 18:53 Dextrose (Dextrose 50%-Water Inj 50 Ml Syringe) 50 ml IV Q15MIN PRN PRN Reason: BG <50 OR BG <70 & pt unresponsive Stop: 05/19/25 18:53 Dextrose (Dextrose 50%-Water Inj 50 Ml Syringe) 50 ml IVP X1 ONE Stop: 04/21/25 08:32 Last Admin: 04/21/25 09:49 Dose: Not Given Furosemide (Furosemide Inj 10 Mg/Ml 4ml Vial) 40 mg IVP X1 ONE Stop: 04/18/25 22:14 Last Admin: 04/18/25 22:57 Dose: 40 mg Glucagon (Glucagon Inj 1 Mg Vial) 1 mg IM Q15MIN PRN PRN Reason: BG <70, and no IV access Heparin Sodium (Porcine) (Heparin Sod Inj 5000 Unit/Ml Vial) 5,000 unit SC Q12HR KIP Stop: 05/03/25 08:59 Hydromorphone HCl (Hydromorphone Inj 2 Mg/Ml Vial) 0.5 mg IVP Q12HR PRN PRN Reason: PAIN Stop: 04/24/25 07:41 Hydromorphone HCl (Hydromorphone Inj 2 Mg/Ml Vial) 0.5 mg IVP Q12HR PRN PRN Reason: Pain 4-10 Stop: 04/24/25 07:41 Hydromorphone HCl (Hydromorphone Inj 2 Mg/Ml Vial) 1 mg IVP X1 ONE Stop: 04/20/25 12:52 Last Admin: 04/20/25 14:57 Dose: 1 mg Ceftriaxone Sodium/Dextrose (Rocephin/D5w 1gm Iv Premix) 1 gm in 50 mls @ 100 mls/hr IV X1 ONE Stop: 04/18/25 22:16 Last Infusion: 04/18/25 23:30 Dose: Infused Azithromycin 500 mg/ Sodium (Chloride) 250 mls @ 250 mls/hr IV X1 ONE Stop: 04/18/25 22:47 Last Infusion: 04/18/25 23:05 Dose: Infused Ceftriaxone Sodium/Dextrose (Rocephin/D5w 1gm Iv Premix) 1 gm in 50 mls @ 100 mls/hr IV QDAY [facility] Stop: 04/25/25 22:17 Last Admin: 04/18/25 23:27 Dose: Not Given Insulin Glargine (Insulin Glargine (Lantus) 5 Unit/0.05 Ml (Per 5 Units)) 26 unit SC QDAY [facility] Stop: 05/19/25 08:59 Last Admin: 04/19/25 09:52 Dose: 26 unit Insulin Glargine (Insulin Glargine (Lantus) 5 Unit/0.05 Ml (Per 5 Units)) 35 unit SC QDAY [facility] Stop: 05/20/25 08:59 Last Admin: 04/21/25 08:18 Dose: 35 unit Insulin Glargine (Insulin Glargine (Lantus) 5 Unit/0.05 Ml (Per 5 Units)) 5 unit SC X1 ONE Stop: 04/21/25 08:46 Last Admin: 04/21/25 09:45 Dose: 5 unit Insulin Human Lispro (Insulin Lispro (Admelog) 1 Unit/0.01 Ml Unit) 0 unit SC ACHS [facility]; Protocol Stop: 05/19/25 07:29 Last Admin: 04/19/25 17:09 Dose: 3 unit Insulin Human Regular (Insulin Hum Regular 1 Unit/0.01 Ml (Per Unit)) 10 unit IV X1 ONE Stop: 04/19/25 07:39 Last Admin: 04/19/25 08:08 Dose: 10 unit Insulin Human Regular (Insulin Hum Regular 1 Unit/0.01 Ml (Per Unit)) 10 unit IV X1 ONE Stop: 04/20/25 08:02 Last Admin: 04/20/25 08:36 Dose: 10 unit Insulin Human Regular (Insulin Hum Regular 1 Unit/0.01 Ml (Per Unit)) 10 unit IV X1 ONE Stop: 04/21/25 08:32 Last Admin: 04/21/25 09:46 Dose: 10 unit Ipratropium [place] (Ipratropium Rt 0.5 Mg/ 2.5 Ml Nebu) 1 mg INH X1 ONE Stop: 04/18/25 20:42 Last Admin: 04/18/25 20:55 Dose: 1 mg Levalbuterol HCl (Levalbuterol Rt 0.63 Mg/3 Ml Nebu) 0.63 mg INH Q8HR PRN PRN Reason: WHEEZING Stop: 05/18/25 22:18 Methylprednisolone Sodium Succinate (Methylprednisolone Sod Succ 62.5 Mg/Ml 2ml Vial) 125 mg IVP X1 ONE Stop: 04/18/25 20:42 Last Admin: 04/18/25 21:10 Dose: 125 mg Methylprednisolone Sodium Succinate (Methylprednisolone Sod Succ 40 Mg Vial) 40 mg IVP BID KIP Stop: 04/26/25 08:59 Last Admin: 04/20/25 08:17 Dose: 40 mg Methylprednisolone Sodium Succinate (Methylprednisolone Sod Succ 62.5 Mg/Ml 2ml Vial) 125 mg IVP X1 ONE Stop: 04/20/25 12:53 Last Admin: 04/20/25 14:57 Dose: 125 mg Sevelamer Carbonate (Sevelamer Carbonate 800 Mg Tablet) 800 mg PO X1 ONE Stop: 04/21/25 08:39 Last Admin: 04/21/25 09:40 Dose: 800 mg Sodium Chloride (Sodium Chloride Rt Blanca 0.9% 3 Ml Nebu) 3 ml INH PRN PRN PRN Reason: SOLN Stop: 05/20/25 08:00 Last Admin: 04/20/25 08:16 Dose: 3 ml Sodium Polystyrene Sulfonate (Sod Polystyrene Sulfon Susp 15 Gm/60 Ml Btl) 30 gm PO X1 ONE Stop: 04/21/25 08:32 Last Admin: 04/21/25 09:48 Dose: 30 gm Assessment & Plan Plan Christina Diaz is a 64-year-old F with a PMH of ESBL UTI, COPD on 2-3 L at home, CHF, atrial fibrillation on Eliquis, Takotsubo's cardiomyopathy, substance use disorder (heroin and methamphetamine), IDDM, HTN, viral meningitis, and stroke who was admitted for acute on chronic COPD exacerbation. #THEO on CKDIIIb #Hyperkalemia Admitted for acute on chronic COPD exacerbation 04/18 and is being treated with abx (Azithromycin and Ceftriaxone) and steroids. Despite frequent Duoneb txs and frequent increasing high doses of steroids, patient is still short of breath. Previously seen by nephrology team mid March for contrast induced THEO which resolved with fluids. Cr on admission 04/19 was 1.6 (estimated BL 1.2-1.4 on chart review), and has been steadily increasing, 1.8 and now 2.4. Most recent labs Na 130, K 5 (was 5.6), Cl 95, Bicarb 21, BUN 102, Cr 2.3, glucose 444, phos 6.2. CK 51. Ddx includes prerenal vs intrinsic. Prerenal THEO ddx: acute COPD exacerbation, continued use of substances, and/or dehydration, all resulting in decreased renal blood flow. Intrinsic THEO ddx: medication induced with frequent high dose steroids or antibiotics and/or substance use. No contrast studies performed. Plan: -May need dialysis if electrolytes do not improve with fluids -Start NS 80 mL/hr -F/u Ulytes, UA, UDS -Renally dose medications -Avoid nephrotoxins Plan of care discussed with attending Dr. Samayoa. Rupali Giordano, PGY-1 Internal Medicine Attending Provider Attestation/Addendum Patient seen and examined with resident physician Dr. Giordano. Note reviewed, agree with findings and recommendations. Patient with a acute renal failure. Known to me from last admission with acute renal failure secondary to contrast nephropathy superimposed on CKD stage III. Currently with worsening azotemia. Suspect prerenal versus intrinsic renal failure. Urine lytes are consistent with prerenal azotemia. If no improvement in renal function despite gentle IV fluids will plan for renal replacement therapy tomorrow. Thank you Lul for allowing me to participate in the care of Srinivas Joe
[2025-04-21] MEDS: ONDANSETRON INJ 2 MG/ML INJ 2 ML 4 MG IVP (12:23)
[2025-04-21 12:39] LABS: Albumin, Serum 3.7 gm/dL (3.4-4.8); Anion Gap 14 (7-16); BUN/Creatinine Ratio 44 Ratio (12-20); Blood Urea Nitrogen 102 mg/dL (9-23); Calcium 8.4 mg/dL (8.3-10.6); Calcium (Corrected) 8.6 mg/dL (8.5-10.1); Carbon Dioxide 21.1 mMol/L (20.0-31.0); Chloride 95 mMol/L (98-107); Creatine Kinase 51 U/L (34-171); Creatinine (Component) 2.3 mg/dL (0.6-1.3); Estimated Creatinine Clearance 24.9 mL/min (>60); Osmolality,Calculated 311 (275-295); Phosphorous 6.2 mg/dL (2.4-5.1); Potassium 5.0 mMol/L (3.4-5.1); Sodium 130 mMol/L (136-145); eGFR 23 See Note
[2025-04-21 12:42] LABS: Glucose 444 mg/dL (74-106)
[2025-04-21] MEDS: SODIUM CHLORIDE 0.9% 1000 ML 1,000 ML 80 ML IV (12:45)
[2025-04-21] MEDS: TUBERCULIN PPD INJ 5 UNIT/0.1 ML DOSE ID (13:36)
[2025-04-21 14:03] LABS: Collection Type, Urine Clean Catch; Squamous Epithelial Cell,Urine 0 /hpf (0-5)
[2025-04-21 14:21] LABS: Amphetamine/Methamp Scrn,U Negative (Negative); Bacteria,Urine Rare; Barbiturate Screen,Urine Negative (Negative); Benzodiazepines Screen,Urine Positive (Negative); Benzoylecgonine Screen, Ur Negative (Negative); Bilirubin,Urine Negative (Negative); Blood,Urine 2+ (Negative); Chloride,Urine Random < 20.0 mMol/L (55.0-125.0); Clarity,Urine Clear (Clear/Hazy); Color,Urine Colorless (Lt Yel-Yel); Creatinine,Random Urine 40 mg/dL (30-125); Fentanyl Screen,Urine Negative (Negative); Glucose, Urine 2+ (Negative); Ketones,Urine Negative (Negative); Leukocyte Esterase,Urine Negative (Negative); Nitrite,Urine Negative (Negative); Opiate Screen,Urine Negative (Negative); PH,Urine 5.0 (5.0-7.0); Potassium,Urine Random 39 mMol/L (12-62); Protein,Urine Negative (Neg - Trace); RBC,Urine 86 /hpf (0-3); Sodium,Urine Random 23.8 mMol/L (20.0-110.0); Specific Gravity,Urine 1.013 (1.001-1.035); THC Screen,Urine Negative (Negative); Urobilinogen,Urine Negative mg/dL (0.0-1.0); WBC,Urine 1 /hpf (0-5)
--- NOTE | 2025-04-21 14:39 | PD.RESPRO ---
Documentation for date of: 04/21/25 Subjective Subjective Interval history: No overnight events. Patient continues to complain of shortness of breath and pleurtic chest pain. Noted for pulmonary vasculature. 1 hour long breathing treatment given. Repeat EKG sinus. Repeat chest x-ray Concern for meth, but patient denies any meth use. Repeat Urine tox negative, only positive for benzo. contiue breathing treatments. PT ordered. Exam Vital Signs Temp Pulse Resp BP Pulse Ox O2 Del Method O2 Flow Rate 97.2 F 78 15 138/85 H 99 Nasal Cannula 2 04/21/25 11:53 04/21/25 13:17 04/21/25 11:53 04/21/25 13:17 04/21/25 11:53 04/21/25 07:22 04/21/25 11:06 Narrative Exam General Appearance: Alert & Oriented X3, well-nourished female who is lying in bed in mild distress, secondary to COPD exacerbation. HEENT: Skull symmetrical and atraumatic. Conjunctivae pale pink and moist. Pupils equal, round, reactive to light and accommodation (PERRL). External ear without lesion or discharge. Straight, nares patient, mucosa pink, no discharge. No thyroid nodule appreciated. Cardio: Normal Rate and Rhythm with S1 and S2 heart sounds. No murmurs or extra heart sounds auscultated. No bruits on carotid auscultation. No peripheral edema or cyanosis. Lungs: Symmetric with good expansion. Chest and back non-tender. Decreased Vesicular breath sounds, wheezing noted through out all lung mehta Abdomen: Non-tender, Non-distended, Normal Reactive Bowel Sounds Neuro: Alert, cooperative, oriented to person, place, and time. Speech clear. CN grossly intact. Upper motor strength 5/5 and Lower motor strength 5/5. Sensation intact. Objective Labs 04/21/25 04:32 04/21/25 12:12 Labs: Laboratory Results - last 24 hr 04/21/25 04/21/25 04/21/25 04:32 12:12 13:50 WBC 17.5 H RBC 3.69 L Hgb 9.3 L Hct 29.3 L MCV 79 L MCH 25.2 MCHC 31.7 RDW Std Deviation 40.8 Plt Count 284 D Neut % (Auto) 91 H Lymph % (Auto) 4 L [place] % (Auto) 1 Eos % (Auto) 0 Baso % (Auto) 0 Neut # (Auto) 16.0 H Lymph # (Auto) 0.7 L [place] # (Auto) 0.2 Eos # (Auto) 0.0 Baso # (Auto) 0.0 Immature Gran # (Auto) 0.53 H Absolute Nucleated RBC 0.00 Immature Gran % 3 H Nucleated RBC % 0 Sodium 129 L 130 L Potassium 5.6 H 5.0 D Chloride 96 L 95 L Carbon Dioxide 24.4 21.1 Anion Gap 9 14 BUN 90 H 102 H* Creatinine 2.4 H D 2.3 H Estim Creat Clear Calc 23.9 L 24.9 L eGFR 22 L 23 L BUN/Creatinine Ratio 38 H 44 H Glucose 361 H 444 H* D Calculated Osmolality 301 H 311 H Calcium 8.5 8.4 Corrected Calcium 8.8 8.6 Phosphorus 5.9 H 6.2 H Magnesium 2.2 Total Bilirubin 0.3 AST 11 ALT 10 Alkaline Phosphatase 63 Total Creatine Kinase 51 D Total Protein 5.9 Albumin 3.6 3.7 Globulin 2.3 Albumin/Globulin Ratio 1.6 Ur Collection Type Clean Catch Urine Color Colorless A Urine Clarity Clear Urine pH 5.0 Ur Specific [place] 1.013 Urine Protein Negative Urine Glucose (UA) 2+ A Urine Ketones Negative Urine Blood 2+ A Urine Nitrite Negative Urine Bilirubin Negative Urine Urobilinogen (Auto) Negative Ur Leukocyte Esterase Negative Urine RBC 86 H Urine WBC 1 Ur Squamous Epith Cells 0 Urine Bacteria Rare Ur Random Creatinine 40 Ur Random Sodium 23.8 Ur Random Potassium 39 Ur Random Chloride < 20.0 L Urine Opiates Screen Negative Urine Fentanyl Screen Negative Ur Barbiturates Screen Negative U Amphetamin/Meth Scrn Negative U Benzodiazepines Scrn Positive A U Cocaine Metab Screen Negative U Marijuana (THC) Screen Negative ABG Interpretation ABG results: 04/18/25 20:40 VBG pH 7.47 VBG pCO2 36 VBG pO2 72 H VBG Base Excess 2 Quality Measures Quality Measures none Assessment & Plan Assessment Current Active Medications: Generic Name Dose Route Start Last Admin Trade Name Freq PRN Reason Stop Dose Admin Acetaminophen 650 mg 04/19/25 07:42 04/19/25 08:17 Acetaminophen 325 Mg Tablet PO 05/18/25 22:12 650 mg Q6H PRN Administration Mild Pain 1-3 or fever >100.1 Albuterol/Ipratropium 3 ml 04/19/25 01:00 04/21/25 11:37 Albuterol/Ipratropium (Duoneb) Rt Blanca 3 Ml Nebu INH 05/19/25 00:59 Not Given Q6HRRT KIP Apixaban 5 mg 04/19/25 09:00 04/21/25 08:15 Apixaban 2.5 Mg Tablet PO 05/19/25 08:59 5 mg BID KIP Administration Aspirin 81 mg 04/19/25 09:00 04/21/25 08:15 Aspirin Ec 81 Mg Tabec PO 05/19/25 08:59 81 mg QDAY KIP Administration Buspirone HCl 5 mg 04/19/25 09:00 04/21/25 08:15 Buspirone Hcl 5 Mg Tablet PO 05/19/25 08:59 5 mg QDAY KIP Administration Methadone 100 Mg 0 ea 04/19/25 14:00 04/21/25 08:16 Cups PO 05/19/25 13:59 1 bottle DAILY KIP Administration Protocol Dextrose 25 ml 04/18/25 22:19 Dextrose 50%-Water Inj 50 Ml Syringe IV 05/18/25 22:18 Q15MIN PRN BG 50-70 responsive npo pt Dextrose 50 ml 04/18/25 22:19 Dextrose 50%-Water Inj 50 Ml Syringe IV 05/18/25 22:18 Q15MIN PRN BG <50 OR BG <70 & pt unresponsive Diazepam 5 mg 04/18/25 22:26 04/21/25 09:41 Diazepam 5 Mg Tablet PO 04/24/25 08:59 5 mg BID PRN Administration MUSCLE SPASMS Diltiazem HCl 180 mg 04/20/25 09:00 04/21/25 08:15 Diltiazem Cd 180 Mg Capcr PO 05/20/25 08:59 180 mg QDAY KIP Administration Glucagon 1 mg 04/18/25 22:19 Glucagon Inj 1 Mg Vial IM Q15MIN PRN BG <70, and no IV access Hydralazine HCl 100 mg 04/19/25 08:45 04/21/25 13:17 Hydralazine Hcl 25 Mg Tablet PO 05/19/25 08:44 100 mg TID KIP Administration Azithromycin 500 mg/ Sodium 250 mls @ 250 mls/hr 04/19/25 21:00 04/21/25 00:09 Chloride IV 04/26/25 20:59 Infused QDAY@2100 KIP Infusion Ceftriaxone Sodium/Dextrose 1 gm in 50 mls @ 100 mls/hr 04/19/25 09:00 04/21/25 08:15 Rocephin/D5w 1gm Iv Premix IV 04/26/25 08:59 100 mls/hr QDAY KIP Administration Sodium Chloride 1,000 mls @ 80 mls/hr 04/21/25 12:22 04/21/25 12:45 Ns IV 05/21/25 12:21 80 mls/hr .[id number] KIP Administration Insulin Glargine 40 unit 04/22/25 09:00 Insulin Glargine (Lantus) 5 Unit/0.05 Ml (Per 5 Units) SC 05/22/25 08:59 QDAY KIP Insulin Human Lispro 0 unit 04/19/25 21:00 04/21/25 11:54 Insulin Lispro (Admelog) 1 Unit/0.01 Ml Unit SC 05/19/25 20:59 5 unit ACHS KIP Administration Protocol Methylprednisolone Sodium Succinate 60 mg 04/20/25 21:00 04/21/25 08:16 Methylprednisolone Sod Succ 40 Mg Vial IVP 04/27/25 20:59 60 mg BID KIP Administration Nicotine 21 mg 04/21/25 09:00 04/21/25 08:17 Nicotine Patch 21 Mg/24 Hr Patch.Td24 TOP 05/21/25 08:59 21 mg QDAY KIP Administration Nitroglycerin 0.4 mg 04/20/25 08:14 04/20/25 11:22 Nitroglycerin 0.4 Mg Subl Btl #25 SL 0.4 mg Q5MIN PRN Administration CHEST PAIN Ondansetron HCl 4 mg 04/18/25 22:13 04/21/25 12:23 Ondansetron Inj 2 Mg/Ml Inj 2 Ml IVP 05/18/25 22:12 4 mg Q6H PRN Administration NAUSEA OR VOMITING Protocol Pantoprazole Sodium 40 mg 04/20/25 09:00 04/21/25 08:15 Pantoprazole Inj 40 Mg Vial IVP 05/20/25 08:59 40 mg QDAY KIP Administration Fluticasone/Salmeterol 1 puff 04/19/25 07:00 04/21/25 06:14 Fluticasone/Salmeterol 250/50 14 Dose Inh INH 05/19/25 06:59 1 puff BIDRT KIP Administration Sennosides 1 tab 04/18/25 22:13 Senna Tablet PO 05/18/25 22:12 QDAY PRN constipation Protocol Sodium Chloride 3 ml 04/21/25 10:39 04/21/25 11:03 Sodium Chloride Rt [place] 0.9% 3 Ml Nebu INH 05/21/25 10:38 3 ml PRN PRN Administration SOLN Spironolactone 50 mg 04/19/25 09:00 04/19/25 09:53 Spironolactone 25 Mg Tablet PO 05/19/25 08:59 50 mg QDAY KIP Administration Plan Patient is a 64 year old female with past medical history of COPD (2-3 L home oxygen), insulin-dependent type 2 diabetes mellitus, CKD likely stage IIIB, Afib on Eliquis, history of takotsubo cardiomyopathy (2023) and substance use disorder on methadone who presented to the ED via EMS 04/18 with one day history of worsening shortness of breath and was admitted for acute hypoxic respiratory failure due to COPD exacerbation and possible new-onset CHF pending echo. #Acute Hypoxic Respiratory Failure secondary to #COPD Exacerbation #COPD Patient endorsed a one day history of worsening shortness of breath, similar to previous episodes. Patient endorsed a feeling of chest tightness and tactile fever. Patient denied sick contacts. Patient stated she has used her Trelegy inhaler once a day and her albuterol 4x a day since her previous discharge 04/06 with minimal relief. Patient endorsed a cough of light yellow sputum production. Possible differentials: Likely COPD exacerbation given the patient's history and comparable hospitalizations in the past, allergies given poor air quality, and less likely, PE, as this patient isn't tachycardic and does not have any acute risk factors, such as DVT surgery or recent long distance travel making her susceptible to a clot. In addition, the patient's acute episode of dyspnea meets the criteria for COPD exacerbation CXR 04/18 demonstrated normal findings VBG 04/18 pH 7.47 pCO2 36 pO2 72 O2 sat 97 Plan: -Maintain patient's oxygen saturation between 88% and 92% given history of COPD -Continue DuoNeb 3ml Q4HRRT -Methylprednisolone 60 mg IVP BID, added methylprednisolone 125 mg x 1 -Fluticasone/Salmoterol 1 puff BIDRT -Monitor patient's oxygen status #History of chest pain secondary to angina, vasospastic, possible Prinzmetal angina? #Chest pain Likely musculoskeletal origin, noncardiac etiology, negative troponins on admission and today, EKG negative for acute ischemic changes. ? Anticipate improvement in chest pain following treatment of COPD and pneumonia as respiratory distress and tachypnea is contributing to increased pain on breathing. ? Patient is already on Eliquis, anticoagulation to be continued. ? Pain relief as indicated #Leukocytosis #? Reactive Leukocytosis Patient is producing sputum of light yellow color via cough. Patient has a history of green mucus production and is more susceptible to infection given reduced ability to clear pathogens. In addition, patient endorsed a tactile fever. 04/18 influenza RSV strep group A negative Pertinent labs: WBC 16.6 Possible reasons: infection given this patient's history of poor respiratory health, reactive from stress of increased work of breathing, inhaler use leading to beta agonist activity and release of inflammatory mediators Plan: -IV azithromycin 500 mg QD and IV ceftriaxone 1 g QD (04/19-04/26) #Lower Peripheral Edema #History of chest pain secondary to angina, vasospastic, possible Prinzmetal angina? #History of takotsubo cardiomyopathy (November 2023) Patient has not been formally diagnosed with heart failure. Patient was given IV Lasix 40 mg x1 04/18. No crackles were heard on examination. Echo (04/18/2025): The transthoracic study is normal by two-dimensional, color flow imaging and Doppler interrogation. Normal left ventricular size and function. Approximate ejection fraction is 60%. Trace mitral and trace tricuspid regurgitation . No wall motion abnormalities noted. The RV is normal in size and systolic function.There is mild TR. Pertinent labs 04/18: BNP 116 Plan: -Single Lasix 40 mg X 04/18 -continue to monitor fluid status #Atrial Fibrillation, rate controlled #History of Atrial Fibrillation with rvr Patient has a history of atrial fibrillation with RVR. 04/18 EKG: sinus tachycardia Plan: -Diltiazem 180 mg qday -Continue Eliquis 5 mg PO BID -Metorprolol stopped. #Hypertension Patient has a long standing history of hypertension. On spironolactone, metazalone, lisinopril, and hydralazine at home. Patient presented to the ED with BP 137/82 Plan: -Restarted Hydralazine 100 mg PO TID -Spironolactone 50 mg PO QD -Amlodipine 10 mg PO QD #Type 2 Diabetes Mellitus, Insulin-Dependent #Hyperglycemia, likely secondary to steroids Patient's FSBG 04/21 am 444. Hyperglycemia likely secondary to IV steroids . 04/13 A1C: 6.4 Plan: -Resume Glargine 35 units-->Glargine 40 units -Regular Insulin 5 units, followed by 10 units (04/21/2025) -Sliding scale increased to intermediate -monitor fasting blood glucose #Chronic Kidney Disease, likey Stage IIIB Patient has a history of CKD. Remained stable since the last admission 04/04. Pertinent labs 04/19: BUN 33 Cr 1.6 GFR 36 Plan: -Monitor renal panel #Substance Use Disorder (Methamphetamine and Heroin) Patient has a long history of methamphetamine and heroin use Plan: -Continue patient's Methadone 100mg PO QD #Anxiety Patient has a history of anxiety. Plan: -Continue patient's Buspirone 5 mg PO QD and Diazepam 5 mg PO BID PRN Health Maintenance: Lines: PIV Diet: Cardiac Bowel: Senna GI prophylaxis: None DVT prophylaxis: SCD Dispo: Pending echo Code: Full - The patient's plan was discussed with attending Dr. Craig Puga MD PGY2 Internal Medicine Attending Provider Attestation/Addendum I have examined the patient, reviewed labs and imaging findings, discussed the case with the resident(s), and reviewed entered orders. I agree with the plan of care as outlined in this note, with these additional summaries/recommendations: Patient seen at bedside. No acute overnight events. Patient continues to endorse relatively severe chest pain. Patient has a lengthy history of chest pain and previously diagnosed with Prinzmetal angina. EKG obtained which did not reveal any acute ST wave changes and troponin WNL. Discontinue patient's home metoprolol and continue diltiazem for printzmetal. Patient seen receiving breathing treatment. Patient diagnosed with acute on chronic hypoxic respiratory failure secondary to COPD exacerbation. Patient has severe underlying COPD. Continue breathing treatments, IV azithromycin, and IV steroids. We will be cautious with steroids given significant hyperglycemia. At baseline patient uses 2 L nasal cannula at home. Patient also noted to have some bilateral lower extremity edema although echocardiogram revealed normal ejection fraction of 60% and lower extremity swelling most likely dependent edema. Patient has developed THEO on CKD. Creatinine is labile but now has up trended to 2.4 and BUN 90. Suspect prerenal azotemia from acute component. Hyperkalemia and hyperphosphatemia now present. Patient given temporizing measures and Kayexalate for hyperkalemia. Repeat renal panel this afternoon. Nephrology consulted and in agreement with IVF. Monitor urinary output. Leukocytosis is present which is most likely secondary to chronic steroids. Continue home Eliquis for chronic atrial fibrillation. Continue methadone at home dose. Patient has underlying diabetes mellitus type 2 with significant hyperglycemia. A1c 6.3%. We will continue to adjust basal and bolus regimen until patient's at goal of 140-180 while hospitalized. Resume home antihypertensives. Patient updated on the plan and agreement. All questions answered to satisfaction. Please see residents note for additional details of management. Dr. Craig MD
--- NOTE | 2025-04-21 14:57 | EKG_ITS ---
[facility] Test Date: 2025-04-21 Pat Name: DISHA ABRAHAM [facility] [employer] Coordinator: ALIX : 1960 Requested By: Angelika Puga Order Number: [id number] Reading MD: Angelika Puga Measurements Intervals [place] Rate: 93 P: 69 MO: 157 QRS: 45 QRSD: 102 T: 62 QT: 346 QTc: 432 Interpretive Statements SINUS RHYTHM Compared to ECG 04/20/2025 08:13:02 Sinus tachycardia no longer present Myocardial infarct finding no longer present /store/S0/[id number]
[2025-04-21] MEDS: AZITHROMYCIN INJ 500 MG in SODIUM CHLORIDE 0.9% 250 ML 250 ML 250 MG IV (20:52)
[2025-04-21 22:20] LABS: Hepatitis A Antibody IgM Non Reactive (Non React); Hepatitis B Core Antibody IgM Non Reactive (Non React); Hepatitis B Surface Antigen Non Reactive (Non React); Hepatitis C Antibody Reactive (Non React)
[2025-04-22] VITALS (16 sets, daily range): BP systolic 115–143; BP diastolic 52–71; PULSE 78–102; RESP 15–20; TEMP 36–36.7; O2SAT 94–99; BMI 26.5; BMI 15.0
[2025-04-22] MEDS: ALBUTEROL/IPRATROPIUM (Duoneb) RT SOL 3 ML NEBU INH ×6 (01:35→22:07)
[2025-04-22] MEDS: ONDANSETRON INJ 2 MG/ML INJ 2 ML 4 MG IVP (01:40)
[2025-04-22] MEDS: SODIUM CHLORIDE 0.9% 1000 ML 1,000 ML 80 ML IV ×2 (01:52→13:36)
[2025-04-22] MEDS: FLUTICASONE/SALMETEROL 250/50 14 DOSE INH 1 PUFF INH ×2 (06:20→18:18)
[2025-04-22] MEDS: INSULIN LISPRO (AdmeLOG) 1 UNIT/0.01 ML UNIT SC ×3 (07:27→22:33)
[2025-04-22 08:26] LABS: Basophils # (Auto) 0.0 Thou/mm3 (0.0-0.2); Basophils % (Auto) 0 % (0-2.5); Eosinophils # (Auto) 0.0 Thou/mm3 (0.0-0.5); Eosinophils % (Auto) 0 % (0-10); Hematocrit 30.4 % (36.0-46.0); Hemoglobin 9.9 g/dL (12.0-16.0); Immature Granulocytes Auto 0.92 Thou/mm3 (0.00-0.00); Lymphocytes # (Auto) 0.6 Thou/mm3 (1.0-4.8); Lymphocytes % (Auto) 3 % (10-50); Mean Corpuscular HGB Conc 32.6 g/dl (31.0-37.0); Mean Corpuscular Hemoglobin 25.5 pg (25.0-35.0); Mean Corpuscular Volume 78 fL (80-100); Monocytes # (Auto) 0.5 Thou/mm3 (0.0-0.8); Monocytes % (Auto) 3 % (0-12); Neutrophils # (Auto) 15.9 Thou/mm3 (1.8-7.7); Neutrophils % (Auto) 88 % (37-80); Nucleated Red Blood Cell # 0.00 Thou/mm3 (0.00-0.00); Nucleated Red Blood Cell % 0 /100 WBC (0); Platelet Count 265 Thou/mm3 (140-440); RDW Standard Deviation 40.4 fL (36.4-46.3); Red Blood Count 3.88 Miln/mm3 (4.00-5.20); White Blood Count 18.0 Thou/mm3 (3.6-11.0)
[2025-04-22] MEDS: cefTRIAXone/D5w 1gm IV premix 1 GM/50 ML BAG IV (08:40)
[2025-04-22] MEDS: NICOTINE PATCH 21 MG/24 HR PATCH.TD24 TOP (08:40)
[2025-04-22] MEDS: DILTIAZEM CD 180 MG CAPCR PO (08:41)
[2025-04-22] MEDS: ASPIRIN EC 81 MG TABEC PO (08:41)
[2025-04-22] MEDS: DIAZEPAM 5 MG TABLET PO (08:41)
[2025-04-22] MEDS: APIXABAN 2.5 MG TABLET 5 MG PO ×2 (08:42→22:32)
[2025-04-22] MEDS: INSULIN GLARGINE (Lantus) 5 UNIT/0.05 ML (PER 5 UNITS) 40 UNIT SC (08:43)
[2025-04-22 08:59] LABS: Alanine Aminotransferase 15 U/L (10-49); Albumin, Serum 3.7 gm/dL (3.4-4.8); Albumin/Globulin Ratio 1.7 (1.2-2.2); Alkaline Phosphatase 58 U/L (46-116); Anion Gap 12 (7-16); Aspartate Amino Transferase 15 U/L (0-34); BUN/Creatinine Ratio 42 Ratio (12-20); Bilirubin,Total 0.2 mg/dL (0.3-1.2); Blood Urea Nitrogen 83 mg/dL (9-23); Calcium 8.9 mg/dL (8.3-10.6); Calcium (Corrected) 9.1 mg/dL (8.5-10.1); Carbon Dioxide 22.9 mMol/L (20.0-31.0); Chloride 101 mMol/L (98-107); Creatinine (Component) 2.0 mg/dL (0.6-1.3); Estimated Creatinine Clearance 28.7 mL/min (>60); Globulin 2.2 gm/dL (2.3-3.5); Glucose 365 mg/dL (74-106); Magnesium 2.4 mg/dL (1.6-2.6); Osmolality,Calculated 312 (275-295); Phosphorous 5.2 mg/dL (2.4-5.1); Potassium 4.3 mMol/L (3.4-5.1); Sodium 136 mMol/L (136-145); Total Protein 5.9 gm/dL (5.7-8.2); eGFR 28 See Note
[2025-04-22] MEDS: METHADONE 100 MG PO (08:59)
--- NOTE | 2025-04-22 09:10 | PC.SS ---
Update: Patient receiving IV steroids. PT evaluation is pending.
--- NOTE | 2025-04-22 09:36 | ESPR_ITS ---
Documentation for date of: 04/22/25 Subjective Subjective Interval history: Ms. Diaz is a 63-year-old female with past medical history of COPD on 2 L home oxygen, A-fib, hypertension, CKD stage IIIb, uyk-ganirbi-nbohahcan type 2 diabetes, polysubstance use disorder presents to the ED on 04/18 with increased episodes of shortness of breath. Patient states that ever since being discharged on 04/06 for COPD exacerbation she was doing okay; however, tonight she started developing increased level of shortness of breath. Patient states that she tried using her home inhalers including albuterol but those did not help her symptoms. Patient denies having any sick contacts; however, she is reporting some sore throat which has worsened in the past several days. Patient otherwise denies any fever/chills or any other concerning cardiac symptoms at this time. Nephrology consulted for management of THEO. Home medications included amlodipine, aspirin, BuSpar, clonidine, Valium, Eliquis, Trelegy, Lasix, hydralazine, Basaglar, DuoNeb, lactulose, lisinopril, meclizine, methadone, metolazone, metoprolol, Aldactone 04/21/2025: Patient seen and examined at bedside while receiving Duoneb treatment. Complains of diffuse chest pain/tightness, nausea and epigastric pain. Previously seen by nephrology team mid March for contrast induced THEO which resolved with fluids. On current admission, baseline Cr on chart review 1.2-1.4 and on 04/20, creatinine was 1.8, increasing to 2.4 today. Most recent labs Na 130, K 5, Cl 95, BUN 102, Cr 2.3, glucose 444, phos 6.2. 04/22/2025: Patient seen and examined at bedside. Reports not feeling well, nauseous and slightly short of breath despite Duoneb treatments. Inquires to see her children. After fluids, labs all improving: Na 136, K 4.3, Cl 101, BUN 83, 2.0, glucose 365, phosphorus 5.2. Exam Vital Signs Temp Pulse Resp BP Pulse Ox O2 Del Method O2 Flow Rate 96.8 F 85 16 143/69 H 96 Nasal Cannula 3 04/22/25 08:00 04/22/25 08:41 04/22/25 08:00 04/22/25 08:41 04/22/25 08:00 04/22/25 08:00 04/22/25 08:00 Narrative Exam GENERAL: AOx3, mild respiratory distress HEENT: NC/AT, mucous membranes moist, bilateral sclera anicteric CARDIOVASCULAR: regular rate and rhythm, S1/S2 present, no murmurs appreciated PULMONARY: b/l/ diffuse inspiratory and expiratory wheezes ABDOMINAL: soft, non-tender, non-distended, no rebound/guarding, bowel sounds present EXTREMITIES: no peripheral edema SKIN: warm and dry, intact, no rashes NEURO: CN II-XII grossly intact, no focal deficits, alert, following commands Objective Labs 04/23/25 05:11 04/23/25 05:11 Labs: Laboratory Results - last 24 hr 04/21/25 04/21/25 04/21/25 12:12 13:45 13:50 WBC RBC Hgb Hct MCV MCH MCHC RDW Std Deviation Plt Count Neut % (Auto) Lymph % (Auto) [place] % (Auto) Eos % (Auto) Baso % (Auto) Neut # (Auto) Lymph # (Auto) [place] # (Auto) Eos # (Auto) Baso # (Auto) Immature Gran # (Auto) Absolute Nucleated RBC Immature Gran % Nucleated RBC % Sodium 130 L Potassium 5.0 D Chloride 95 L Carbon Dioxide 21.1 Anion Gap 14 BUN 102 H* Creatinine 2.3 H Estim Creat Clear Calc 24.9 L eGFR 23 L BUN/Creatinine Ratio 44 H Glucose 444 H* D Calculated Osmolality 311 H Calcium 8.4 Corrected Calcium 8.6 Phosphorus 6.2 H Magnesium Total Bilirubin AST ALT Alkaline Phosphatase Total Creatine Kinase 51 D Total Protein Albumin 3.7 Globulin Albumin/Globulin Ratio Ur Collection Type Clean Catch Urine Color Colorless A Urine Clarity Clear Urine pH 5.0 Ur Specific [place] 1.013 Urine Protein Negative Urine Glucose (UA) 2+ A Urine Ketones Negative Urine Blood 2+ A Urine Nitrite Negative Urine Bilirubin Negative Urine Urobilinogen (Auto) Negative Ur Leukocyte Esterase Negative Urine RBC 86 H Urine WBC 1 Ur Squamous Epith Cells 0 Urine Bacteria Rare Ur Random Creatinine 40 Ur Random Sodium 23.8 Ur Random Potassium 39 Ur Random Chloride < 20.0 L Urine Opiates Screen Negative Urine Fentanyl Screen Negative Ur Barbiturates Screen Negative U Amphetamin/Meth Scrn Negative U Benzodiazepines Scrn Positive A U Cocaine Metab Screen Negative U Marijuana (THC) Screen Negative Hepatitis A IgM Ab Non Reactive Hep Bs Antigen Non Reactive Hep B Core IgM Ab Non Reactive Hepatitis C Antibody Reactive A 04/22/25 08:13 WBC 18.0 H RBC 3.88 L Hgb 9.9 L Hct 30.4 L MCV 78 L MCH 25.5 MCHC 32.6 RDW Std Deviation 40.4 Plt Count 265 Neut % (Auto) 88 H Lymph % (Auto) 3 L [place] % (Auto) 3 Eos % (Auto) 0 Baso % (Auto) 0 Neut # (Auto) 15.9 H Lymph # (Auto) 0.6 L [place] # (Auto) 0.5 Eos # (Auto) 0.0 Baso # (Auto) 0.0 Immature Gran # (Auto) 0.92 H Absolute Nucleated RBC 0.00 Immature Gran % 5 H Nucleated RBC % 0 Sodium 136 Potassium 4.3 D Chloride 101 Carbon Dioxide 22.9 Anion Gap 12 BUN 83 H Creatinine 2.0 H Estim Creat Clear Calc 28.7 L eGFR 28 L BUN/Creatinine Ratio 42 H Glucose 365 H D Calculated Osmolality 312 H Calcium 8.9 Corrected Calcium 9.1 Phosphorus 5.2 H Magnesium 2.4 Total Bilirubin 0.2 L AST 15 ALT 15 Alkaline Phosphatase 58 Total Creatine Kinase Total Protein 5.9 Albumin 3.7 Globulin 2.2 L Albumin/Globulin Ratio 1.7 Ur Collection Type Urine Color Urine Clarity Urine pH Ur Specific [place] Urine Protein Urine Glucose (UA) Urine Ketones Urine Blood Urine Nitrite Urine Bilirubin Urine Urobilinogen (Auto) Ur Leukocyte Esterase Urine RBC Urine WBC Ur Squamous Epith Cells Urine Bacteria Ur Random Creatinine Ur Random Sodium Ur Random Potassium Ur Random Chloride Urine Opiates Screen Urine Fentanyl Screen Ur Barbiturates Screen U Amphetamin/Meth Scrn U Benzodiazepines Scrn U Cocaine Metab Screen U Marijuana (THC) Screen Hepatitis A IgM Ab Hep Bs Antigen Hep B Core IgM Ab Hepatitis C Antibody ABG Interpretation ABG results: 04/18/25 20:40 VBG pH 7.47 VBG pCO2 36 VBG pO2 72 H VBG Base Excess 2 Quality Measures Quality Measures VTE prophylaxis Assessment & Plan Assessment Current Active Medications: Generic Name Dose Route Start Last Admin Trade Name Freq PRN Reason Stop Dose Admin Acetaminophen 650 mg 04/19/25 07:42 04/19/25 08:17 Acetaminophen 325 Mg Tablet PO 05/18/25 22:12 650 mg Q6H PRN Administration Mild Pain 1-3 or fever >100.1 Albuterol/Ipratropium 3 ml 04/19/25 01:00 04/22/25 06:20 Albuterol/Ipratropium (Duoneb) Rt Blanca 3 Ml Nebu INH 05/19/25 00:59 3 ml Q6HRRT KIP Administration Apixaban 5 mg 04/19/25 09:00 04/22/25 08:42 Apixaban 2.5 Mg Tablet PO 05/19/25 08:59 5 mg BID KIP Administration Aspirin 81 mg 04/19/25 09:00 04/22/25 08:41 Aspirin Ec 81 Mg Tabec PO 05/19/25 08:59 81 mg QDAY KIP Administration Buspirone HCl 5 mg 04/19/25 09:00 04/22/25 08:41 Buspirone Hcl 5 Mg Tablet PO 05/19/25 08:59 5 mg QDAY KIP Administration Methadone 100 Mg 0 ea 04/19/25 14:00 04/22/25 08:59 Cups PO 05/19/25 13:59 1 bottle DAILY KIP Administration Protocol Dextrose 25 ml 04/18/25 22:19 Dextrose 50%-Water Inj 50 Ml Syringe IV 05/18/25 22:18 Q15MIN PRN BG 50-70 responsive npo pt Dextrose 50 ml 04/18/25 22:19 Dextrose 50%-Water Inj 50 Ml Syringe IV 05/18/25 22:18 Q15MIN PRN BG <50 OR BG <70 & pt unresponsive Diazepam 5 mg 04/18/25 22:26 04/22/25 08:41 Diazepam 5 Mg Tablet PO 04/24/25 08:59 5 mg BID PRN Administration MUSCLE SPASMS Diltiazem HCl 180 mg 04/20/25 09:00 04/22/25 08:41 Diltiazem Cd 180 Mg Capcr PO 05/20/25 08:59 180 mg QDAY KIP Administration Glucagon 1 mg 04/18/25 22:19 Glucagon Inj 1 Mg Vial IM Q15MIN PRN BG <70, and no IV access Hydralazine HCl 100 mg 04/19/25 08:45 04/22/25 05:06 Hydralazine Hcl 25 Mg Tablet PO 05/19/25 08:44 100 mg TID KIP Administration Azithromycin 500 mg/ Sodium 250 mls @ 250 mls/hr 04/19/25 21:00 04/21/25 20:52 Chloride IV 04/26/25 20:59 250 mls/hr QDAY@2100 KIP Administration Ceftriaxone Sodium/Dextrose 1 gm in 50 mls @ 100 mls/hr 04/19/25 09:00 04/22/25 08:40 Rocephin/D5w 1gm Iv Premix IV 04/26/25 08:59 100 mls/hr QDAY KIP Administration Sodium Chloride 1,000 mls @ 80 mls/hr 04/22/25 09:32 Ns IV 04/22/25 22:01 .[id number] [facility] Insulin Glargine 45 unit 04/23/25 09:00 Insulin Glargine (Lantus) 5 Unit/0.05 Ml (Per 5 Units) IA 05/23/25 08:59 QDAY [facility] Insulin Human Lispro 0 unit 04/19/25 21:00 04/22/25 07:27 Insulin Lispro (Admelog) 1 Unit/0.01 Ml Unit IA 05/19/25 20:59 5 unit ACHS [facility] Administration Protocol Insulin Human Lispro 12 unit 04/22/25 11:30 Insulin Lispro (Admelog) 1 Unit/0.01 Ml Unit SC 05/22/25 11:29 ACHS [facility] Methylprednisolone Sodium Succinate 60 mg 04/20/25 21:00 04/22/25 08:42 Methylprednisolone Sod Succ 40 Mg Vial IVP 04/27/25 20:59 60 mg BID KIP Administration Nicotine 21 mg 04/21/25 09:00 04/22/25 08:40 Nicotine Patch 21 Mg/24 Hr Patch.Td24 TOP 05/21/25 08:59 21 mg QDAY KIP Administration Nitroglycerin 0.4 mg 04/20/25 08:14 04/20/25 11:22 Nitroglycerin 0.4 Mg Subl Btl #25 SL 0.4 mg Q5MIN PRN Administration CHEST PAIN Ondansetron HCl 4 mg 04/18/25 22:13 04/22/25 01:40 Ondansetron Inj 2 Mg/Ml Inj 2 Ml IVP 05/18/25 22:12 4 mg Q6H PRN Administration NAUSEA OR VOMITING Protocol Pantoprazole Sodium 40 mg 04/20/25 09:00 04/22/25 08:43 Pantoprazole Inj 40 Mg Vial IVP 05/20/25 08:59 40 mg QDAY KIP Administration Fluticasone/Salmeterol 1 puff 04/19/25 07:00 04/22/25 06:20 Fluticasone/Salmeterol 250/50 14 Dose Inh INH 05/19/25 06:59 1 puff BIDRT KIP Administration Sennosides 1 tab 04/18/25 22:13 Senna Tablet PO 05/18/25 22:12 QDAY PRN constipation Protocol Sodium Chloride 3 ml 04/21/25 10:39 04/21/25 11:03 Sodium Chloride Rt [place]anca 0.9% 3 Ml Nebu INH 05/21/25 10:38 3 ml PRN PRN Administration SOLN Spironolactone 50 mg 04/19/25 09:00 04/19/25 09:53 Spironolactone 25 Mg Tablet PO 05/19/25 08:59 50 mg QDAY KIP Administration Plan Christina Diaz is a 64-year-old F with a PMH of ESBL UTI, COPD on 2-3 L at home, CHF, atrial fibrillation on Eliquis, Takotsubo's cardiomyopathy, substance use disorder (heroin and methamphetamine), IDDM, HTN, viral meningitis, and stroke who was admitted for acute on chronic COPD exacerbation. #THEO on CKDIIIb #Hyperkalemia, resolved #Hyperphosphatemia, resolving Admitted for acute on chronic COPD exacerbation 04/18 and is being treated with abx (Azithromycin and Ceftriaxone) and steroids. Despite frequent Duoneb txs and frequent increasing high doses of steroids, patient is still short of breath. Previously seen by nephrology team mid March for contrast induced THEO which resolved with fluids. Cr on admission 04/19 was 1.6 (estimated BL 1.2-1.4 on chart review), and has been steadily increasing, 1.8 and now 2.4. Most recent labs Na 130, K 5 (was 5.6), Cl 95, Bicarb 21, BUN 102, Cr 2.3, glucose 444, phos 6.2. CK 51. Ddx includes prerenal vs intrinsic. Prerenal THEO ddx: acute COPD exacerbation, continued use of substances, and/or dehydration, all resulting in decreased renal blood flow. Intrinsic THEO ddx: medication induced with frequent high dose steroids or antibiotics and/or substance use. No contrast studies performed. Ulytes consistent with prerenal THEO etiology. No signs of infection in UA (only 2+ blood with 86 RBC), UDS positive for benzos Lab values improving s/p 1L of NS, ~1L fluids from abx Plan: -Another 1L of NS 80 mL/hr -Renally dose medications -Avoid nephrotoxins #Acute Hypoxic Respiratory Failure secondary to #COPD Exacerbation #COPD #Chest pain #Leukocytosis #Lower Peripheral Edema #Atrial Fibrillation, rate controlled #History of Atrial Fibrillation with rvr #Hypertension #Type 2 Diabetes Mellitus, Insulin-Dependent #Hyperglycemia, likely secondary to steroids #Substance Use Disorder (Methamphetamine and Heroin) #Anxiety -Management per primary team Plan of care discussed with attending Dr. Samayoa. Rupali Giordano, PGY-1 Internal Medicine Attending Provider Attestation/Addendum Patient seen and examined with resident physician Dr. Giordano. Note reviewed, agree with findings and recommendations. Patient with a acute renal failure. Known to me from last admission with acute renal failure secondary to contrast nephropathy superimposed on CKD stage III. Currently with worsening azotemia. Suspect prerenal versus intrinsic renal failure. Urine lytes are consistent with prerenal azotemia. Continue with 1 more day of fluids. If no improvement in renal function despite gentle IV fluids will plan for renal replacement therapy tomorrow.
--- NOTE | 2025-04-22 10:00 | PD.RESPRO ---
Documentation for date of: 04/22/25 NO overnight events. Improved vesicular breath sounds but continues to have significant wheezing through out all lung mehta. Increased breathing treatment from Q6HRs to Q4HRS. Kidney function continues to improve. PT ordered. 81 units of insulin administered on 04/22/2025. Glargine increased to 45 units. Scheduled Lispro 12 units, and Sliding scale. Hyperglycemia secondary to steroids. If continue improvement, plan to discharge within the next 24 hours. Completed 5 days of antibiotics Angelika Puga PGY 2 Subjective Subjective Interval history: Overnight events: No acute events overnight. Patient was seen and examined at bedside. AM vitals and labs reviewed. Patient was found to have increased shortness of breath on 2.5 L nasal cannula today. The patient noted that her breathing got worse last night, but is still better than how it was in the ED prior to admission. Patient was noted to have O2 saturation of 97% during this episode of increased shortness of breath. According to the patient, she received a breathing treatment earlier in the day, which helped but seems to have wore off by the time of the encounter. The patient also endorses chest pain with radiation to the back that she describes as a stabbing pain. Other than a headache, the patient has no other complaints at this time. Review of systems otherwise negative except for what is mentioned above. Exam Vital Signs Temp Pulse Resp BP Pulse Ox O2 Del Method O2 Flow Rate 96.8 F 85 16 143/69 H 96 Nasal Cannula 3 04/22/25 08:00 04/22/25 08:41 04/22/25 08:00 04/22/25 08:41 04/22/25 08:00 04/22/25 08:00 04/22/25 08:00 Narrative Exam Physical Exam: General: Alert, distressed. Skin: Warm, dry, intact, no obvious rash. Head: Normocephalic, atraumatic. Eye: Normal conjunctiva, PERRL. Cardiovascular: Regular rate and rhythm, no murmur, +S1/S2. Respiratory: Respirations labored on 2.5 L NC, diffuse wheezing (louder on right side). Gastrointestinal: Soft, non-distended. RUQ and RLQ tenderness to light palpation. No guarding or rebound tenderness. Extremities: No edema, no cyanosis, no clubbing. 2+ radial pulse bilaterally, 2+ pedal pulse bilaterally. Neuro: No focal deficits observed. Conversant, moving all extremities. No overt cerebellar signs/incoordination. Psychiatric: Cooperative, appropriate affect. Objective Labs 04/28/25 05:02 04/28/25 05:02 Labs: Laboratory Results - last 24 hr 04/21/25 04/21/25 04/21/25 12:12 13:45 13:50 WBC RBC Hgb Hct MCV MCH MCHC RDW Std Deviation Plt Count Neut % (Auto) Lymph % (Auto) [place] % (Auto) Eos % (Auto) Baso % (Auto) Neut # (Auto) Lymph # (Auto) [place] # (Auto) Eos # (Auto) Baso # (Auto) Immature Gran # (Auto) Absolute Nucleated RBC Immature Gran % Nucleated RBC % Sodium 130 L Potassium 5.0 D Chloride 95 L Carbon Dioxide 21.1 Anion Gap 14 BUN 102 H* Creatinine 2.3 H Estim Creat Clear Calc 24.9 L eGFR 23 L BUN/Creatinine Ratio 44 H Glucose 444 H* D Calculated Osmolality 311 H Calcium 8.4 Corrected Calcium 8.6 Phosphorus 6.2 H Magnesium Total Bilirubin AST ALT Alkaline Phosphatase Total Creatine Kinase 51 D Total Protein Albumin 3.7 Globulin Albumin/Globulin Ratio Ur Collection Type Clean Catch Urine Color Colorless A Urine Clarity Clear Urine pH 5.0 Ur Specific [place] 1.013 Urine Protein Negative Urine Glucose (UA) 2+ A Urine Ketones Negative Urine Blood 2+ A Urine Nitrite Negative Urine Bilirubin Negative Urine Urobilinogen (Auto) Negative Ur Leukocyte Esterase Negative Urine RBC 86 H Urine WBC 1 Ur Squamous Epith Cells 0 Urine Bacteria Rare Ur Random Creatinine 40 Ur Random Sodium 23.8 Ur Random Potassium 39 Ur Random Chloride < 20.0 L Urine Opiates Screen Negative Urine Fentanyl Screen Negative Ur Barbiturates Screen Negative U Amphetamin/Meth Scrn Negative U Benzodiazepines Scrn Positive A U Cocaine Metab Screen Negative U Marijuana (THC) Screen Negative Hepatitis A IgM Ab Non Reactive Hep Bs Antigen Non Reactive Hep B Core IgM Ab Non Reactive Hepatitis C Antibody Reactive A 04/22/25 08:13 WBC 18.0 H RBC 3.88 L Hgb 9.9 L Hct 30.4 L MCV 78 L MCH 25.5 MCHC 32.6 RDW Std Deviation 40.4 Plt Count 265 Neut % (Auto) 88 H Lymph % (Auto) 3 L [place] % (Auto) 3 Eos % (Auto) 0 Baso % (Auto) 0 Neut # (Auto) 15.9 H Lymph # (Auto) 0.6 L [place] # (Auto) 0.5 Eos # (Auto) 0.0 Baso # (Auto) 0.0 Immature Gran # (Auto) 0.92 H Absolute Nucleated RBC 0.00 Immature Gran % 5 H Nucleated RBC % 0 Sodium 136 Potassium 4.3 D Chloride 101 Carbon Dioxide 22.9 Anion Gap 12 BUN 83 H Creatinine 2.0 H Estim Creat Clear Calc 28.7 L eGFR 28 L BUN/Creatinine Ratio 42 H Glucose 365 H D Calculated Osmolality 312 H Calcium 8.9 Corrected Calcium 9.1 Phosphorus 5.2 H Magnesium 2.4 Total Bilirubin 0.2 L AST 15 ALT 15 Alkaline Phosphatase 58 Total Creatine Kinase Total Protein 5.9 Albumin 3.7 Globulin 2.2 L Albumin/Globulin Ratio 1.7 Ur Collection Type Urine Color Urine Clarity Urine pH Ur Specific [place] Urine Protein Urine Glucose (UA) Urine Ketones Urine Blood Urine Nitrite Urine Bilirubin Urine Urobilinogen (Auto) Ur Leukocyte Esterase Urine RBC Urine WBC Ur Squamous Epith Cells Urine Bacteria Ur Random Creatinine Ur Random Sodium Ur Random Potassium Ur Random Chloride Urine Opiates Screen Urine Fentanyl Screen Ur Barbiturates Screen U Amphetamin/Meth Scrn U Benzodiazepines Scrn U Cocaine Metab Screen U Marijuana (THC) Screen Hepatitis A IgM Ab Hep Bs Antigen Hep B Core IgM Ab Hepatitis C Antibody ABG Interpretation ABG results: 04/18/25 20:40 VBG pH 7.47 VBG pCO2 36 VBG pO2 72 H VBG Base Excess 2 Quality Measures Quality Measures VTE prophylaxis Assessment & Plan Assessment Current Active Medications: Generic Name Dose Route Start Last Admin Trade Name Freq PRN Reason Stop Dose Admin Acetaminophen 650 mg 04/19/25 07:42 04/19/25 08:17 Acetaminophen 325 Mg Tablet PO 05/18/25 22:12 650 mg Q6H PRN Administration Mild Pain 1-3 or fever >100.1 Albuterol/Ipratropium 3 ml 04/19/25 01:00 04/22/25 06:20 Albuterol/Ipratropium (Duoneb) Rt [place]anca 3 Ml Nebu INH 05/19/25 00:59 3 ml Q6HRRT KIP Administration Apixaban 5 mg 04/19/25 09:00 04/22/25 08:42 Apixaban 2.5 Mg Tablet PO 05/19/25 08:59 5 mg BID KIP Administration Aspirin 81 mg 04/19/25 09:00 04/22/25 08:41 Aspirin Ec 81 Mg Tabec PO 05/19/25 08:59 81 mg QDAY KIP Administration Buspirone HCl 5 mg 04/19/25 09:00 04/22/25 08:41 Buspirone Hcl 5 Mg Tablet PO 05/19/25 08:59 5 mg QDAY KIP Administration Methadone 100 Mg 0 ea 04/19/25 14:00 04/22/25 08:59 Cups PO 05/19/25 13:59 1 bottle DAILY KIP Administration Protocol Dextrose 25 ml 04/18/25 22:19 Dextrose 50%-Water Inj 50 Ml Syringe IV 05/18/25 22:18 Q15MIN PRN BG 50-70 responsive npo pt Dextrose 50 ml 04/18/25 22:19 Dextrose 50%-Water Inj 50 Ml Syringe IV 05/18/25 22:18 Q15MIN PRN BG <50 OR BG <70 & pt unresponsive Diazepam 5 mg 04/18/25 22:26 04/22/25 08:41 Diazepam 5 Mg Tablet PO 04/24/25 08:59 5 mg BID PRN Administration MUSCLE SPASMS Diltiazem HCl 180 mg 04/20/25 09:00 04/22/25 08:41 Diltiazem Cd 180 Mg Capcr PO 05/20/25 08:59 180 mg QDAY KIP Administration Glucagon 1 mg 04/18/25 22:19 Glucagon Inj 1 Mg Vial IM Q15MIN PRN BG <70, and no IV access Hydralazine HCl 100 mg 04/19/25 08:45 04/22/25 05:06 Hydralazine Hcl 25 Mg Tablet PO 05/19/25 08:44 100 mg TID KIP Administration Azithromycin 500 mg/ Sodium 250 mls @ 250 mls/hr 04/19/25 21:00 04/21/25 20:52 Chloride IV 04/26/25 20:59 250 mls/hr QDAY@2100 KIP Administration Ceftriaxone Sodium/Dextrose 1 gm in 50 mls @ 100 mls/hr 04/19/25 09:00 04/22/25 08:40 Rocephin/D5w 1gm Iv Premix IV 04/26/25 08:59 100 mls/hr QDAY KIP Administration Sodium Chloride 1,000 mls @ 80 mls/hr 04/22/25 09:32 Ns IV 04/22/25 22:01 .[id number] KIP Insulin Glargine 45 unit 04/23/25 09:00 Insulin Glargine (Lantus) 5 Unit/0.05 Ml (Per 5 Units) SC 05/23/25 08:59 QDAY KIP Insulin Human Lispro 0 unit 04/19/25 21:00 04/22/25 07:27 Insulin Lispro (Admelog) 1 Unit/0.01 Ml Unit SC 05/19/25 20:59 5 unit ACHS KIP Administration Protocol Insulin Human Lispro 12 unit 04/22/25 11:30 Insulin Lispro (Admelog) 1 Unit/0.01 Ml Unit SC 05/22/25 11:29 ACHS KIP Methylprednisolone Sodium Succinate 60 mg 04/20/25 21:00 04/22/25 08:42 Methylprednisolone Sod Succ 40 Mg Vial IVP 04/27/25 20:59 60 mg BID KIP Administration Nicotine 21 mg 04/21/25 09:00 04/22/25 08:40 Nicotine Patch 21 Mg/24 Hr Patch.Td24 TOP 05/21/25 08:59 21 mg QDAY KIP Administration Nitroglycerin 0.4 mg 04/20/25 08:14 04/20/25 11:22 Nitroglycerin 0.4 Mg Subl Btl #25 SL 0.4 mg Q5MIN PRN Administration CHEST PAIN Ondansetron HCl 4 mg 04/18/25 22:13 04/22/25 01:40 Ondansetron Inj 2 Mg/Ml Inj 2 Ml IVP 05/18/25 22:12 4 mg Q6H PRN Administration NAUSEA OR VOMITING Protocol Pantoprazole Sodium 40 mg 04/20/25 09:00 04/22/25 08:43 Pantoprazole Inj 40 Mg Vial IVP 05/20/25 08:59 40 mg QDAY KIP Administration Fluticasone/Salmeterol 1 puff 04/19/25 07:00 04/22/25 06:20 Fluticasone/Salmeterol 250/50 14 Dose Inh INH 05/19/25 06:59 1 puff BIDRT KIP Administration Sennosides 1 tab 04/18/25 22:13 Senna Tablet PO 05/18/25 22:12 QDAY PRN constipation Protocol Sodium Chloride 3 ml 04/21/25 10:39 04/21/25 11:03 Sodium Chloride Rt [place]anca 0.9% 3 Ml Nebu INH 05/21/25 10:38 3 ml PRN PRN Administration SOLN Spironolactone 50 mg 04/19/25 09:00 04/19/25 09:53 Spironolactone 25 Mg Tablet PO 05/19/25 08:59 50 mg QDAY KIP Administration Plan Mrs. Diaz is a 64 year old female with a history of COPD (2-3L home O2), A-fib on Eliquis, hypertension, CKD stage IIIb, T2DM, polysubstance use disorder, history of ESBL UTI, Takotsubo cardiomyopathy [diagnosed 2023] who came for worsening shortness of breath. Patient was admitted for management of acute hypoxic failure due to COPD. #Acute on chronic hypoxic failure due to #Acute on Chronic COPD exacerbation #COPD #Nicotine Use Disorder/Current Smoker Patient endorsed worsening of shortness of breath and chest pain that led to her seeking treatment in the ED on 04/18/2025. Patient has been using her Trelegy inhaler once a day and her albuterol inhaler 4 times a day after her recent discharge on 04/06. Home medications were providing minimal relief. Patient had a light yellow sputum production. Due to the patient's COPD exacerbation history, this is most likely another COPD exacerbation. Patient's acute episode of dyspnea meets criteria for COPD exacerbation. Chest x-ray 04/18 negative for acute findings, repeat chest x-ray 04/21 also negative for acute findings VBG 04/18 pH 7.47, PCO2 36, PO2 72, O2 sat 97% ? Maintain patient's oxygen saturation between 88% and 92% given history of COPD ? 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 Continue methylprednisolone 60 mg IVP twice daily, will consider decreasing dose if improvement is noted in patient's respiratory status tomorrow [04/23] ? Continue fluticasone/salmeterol 1 puff twice daily RT ? Continue to monitor patient's oxygen status ? Recommend CT chest scan in 3 to 6 months to follow-up on CTA chest on 04/03 ? Coccidioides panel not ordered due to recent negative on 04/04/2025 ? Discontinued ceftriaxone due to low suspicion of PNA given negative chest x-ray findings x 2 #Leukocytosis Patient was producing light yellow sputum via cough and has a history of green mucus production. Patient is more susceptible to infection due to history of COPD and frequent steroid use. Viral respiratory panel negative 04/18, strep group A negative 04/18. WBC noted to be elevated throughout current admission, possibly due to increased steroid use to manage acute hypoxic failure due to COPD exacerbation. ? Will continue azithromycin 500 mg daily [started 04/18, on day 5] ? 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 Noncardiac etiology suspected. Troponins negative on 04/18 and 04/20. EKG 04/21 negative for acute ischemic changes. ? Will continue to anticipate improvement and worsening of chest pain depending on respiratory status, suspect that treatment of COPD will resolve chest pain ? Will continue patient's Eliquis ? Pain relief as indicated #Lower extremity edema (resolving) #History of Takatsubo cardiomyopathy [2023] Patient presented with lower peripheral edema, had BNP of 116 on 04/18, and was given IV Lasix 40 mg one-time dose on 04/18. TTE showed normal left ventricular size and function with EF 60%, no wall motion abnormalities noted. ? Will continue to monitor fluid status ? Restarted IV hydration with normal saline per recommendations of nephrology #Atrial fibrilation with rate control #History of A-fib with RVR Patient has a history of atrial fibrillation with RVR. EKG 04/21 shows sinus rhythm. ? Continue diltiazem 180 mg daily ? Continue Eliquis 5 mg p.o. twice daily ? Continue aspirin 81 mg daily ? Continue to hold home metoprolol #Hypertension Patient has a history of hypertension on spironolactone, metazalone, lisinopril, and hydralazine at home. Patient presented to ED with BP of 137/82. ? Continue hydralazine 100 mg p.o. 3 times daily ? Continue spironolactone 50 mg p.o. daily ? Continue diltiazem 180 mg p.o. daily #Type 2 diabetes mellitus, dependent on insulin #Hyperglycemia, likely due to steroid use ? Will continue to monitor fasting glucose ? Continue intermediate sliding scale ? Continue glargine 45 units ? Continue insulin lispro 12 units 3 times daily (with meals) ? If steroid-induced hyperglycemia on intermediate sliding scale is an adequate with current plan, will swap to glargine 40 units BID with intermedite sliding scale #THEO on CKD stage IIIb, improving #CKD Stage IIIb Patient has a history of CKD and has remained stable since her last admission on 04/04. ? Will continue to monitor with daily renal panel ? Restarted IV hydration with normal saline per recommendations of nephrology #Chronic hepatitis C infection Patient tested positive for hepatitis C antibody on 04/21/2025 and 02/18/2024. ? Will continue to monitor with daily CMP #Polysubstance use disorder (methamephetamine and heroin) Patient has history of methamphetamine and heroin abuse. On methadone outpatient. ?Will continue methadone 100 mg p.o. daily #Anxiety Patient has history of anxiety. ? Will continue with patient's home BuSpar 5 mg p.o. daily and diazepam 5 mg p.o. twice daily as needed DVT Prophylaxis: Eliquis GI Prophylaxis: Pantoprazole Bowel: Senna Diet: Cardiac diet with consistent low carb Gama: N/A Lines: Peripheral IV Antibiotics: Azithromycin 500mg daily [day 5, start date 04/18] Code Status: FULL Reason for Hospitalization: Continued shortness of breath Other Barriers to Discharge: N/A Health Maintenance: Disp: Pt is currently dmitted to floors for further management of acute on chronic COPD exacerbation schedule duonebs , awaiting improved breathing FEN: Cardiac, modified w/ low carb consistent DVT: ambulatory, none GI: Protonix Gama: none Code: Full Code Patient plan of care was discussed with the senior resident Dr. Lux (PGY-2) and attending physician Dr. Craig Duncan, PGY1 - The patient's plan was discussed with attending Dr. Craig Puga MD PGY2 Internal Medicine Attending Provider Attestation/Addendum I have examined the patient, reviewed labs and imaging findings, discussed the case with the resident(s), and reviewed entered orders. I agree with the plan of care as outlined in this note, with these additional summaries/recommendations: Patient seen at bedside. No acute overnight events. Patient continues to endorse shortness of breath and chest pain. Patient has a lengthy history of chest pain and previously diagnosed with Prinzmetal angina. EKG obtained which did not reveal any acute ST wave changes and troponin WNL. Discontinue patient's home metoprolol and continue diltiazem for printzmetal. Patient seen receiving breathing treatment. Patient diagnosed with acute on chronic hypoxic respiratory failure secondary to COPD exacerbation. Patient has severe underlying COPD. Continue breathing treatments, IV azithromycin, and IV steroids. We will be cautious with steroids given significant hyperglycemia. At baseline patient uses 2 L nasal cannula at home. She is on 4 L nasal cannula today and we will continue to wean O2 requirement as tolerated. Patient also noted to have some bilateral lower extremity edema although echocardiogram revealed normal ejection fraction of 60% and lower extremity swelling most likely dependent edema. Patient has developed THEO on CKD. Nephrology was consulted and patient started on IV fluids and renal function improving. Suspect prerenal azotemia from acute component. Hyperkalemia and hyperphosphatemia now resolved Monitor urinary output. Leukocytosis is present which is most likely secondary to chronic steroids. Continue home Eliquis for chronic atrial fibrillation. Continue methadone at home dose. Patient has underlying diabetes mellitus type 2 with significant hyperglycemia. A1c 6.3%. We will continue to adjust basal and bolus regimen until patient's at goal of 140-180 while hospitalized. Continue home antihypertensives. Patient updated on the plan and agreement. All questions answered to satisfaction. Please see residents note for additional details of management. Dr. Craig MD
[2025-04-22] MEDS: INSULIN HUM REGULAR 1 UNIT/0.01 ML (PER UNIT) 5 UNIT IV (10:18)
[2025-04-22] MEDS: INSULIN LISPRO (AdmeLOG) 1 UNIT/0.01 ML UNIT 12 UNIT SC (12:26)
--- NOTE | 2025-04-22 14:00 | PC.SS ---
Rounding Note: Patient receiving IV steroids. Plan is to d/c patient within 1 day.
[2025-04-22] MEDS: LIDOCAINE 5% 1 PATCH TOP (17:15)
[2025-04-22] MEDS: BACLOFEN 10 MG TABLET PO (17:15)
--- NOTE | 2025-04-22 19:15 | PC.NURSE ---
NO IV ACCESS AT THIS TIME. ATTEMPTED VIA ULTRA SOUND BUT UNABLE TO FIND ACCESS. MD AWARE PATIENT HAS NO PERIPHERAL IV ACCESS. PER MD STATED THEY WILL TALK WITH PATIENT ABOUT POSSIBLE CENTRAL LINE INSERTION. NO NEW ORDERS AT THIS TIME. PLAN OF CARE ONGOING.
[2025-04-23] VITALS (19 sets, daily range): BP systolic 118–160; BP diastolic 56–71; PULSE 70–90; RESP 13–19; TEMP 36.1–36.6; O2SAT 93–100; BMI 11.0
[2025-04-23] MEDS: DIAZEPAM 5 MG TABLET PO (00:25)
[2025-04-23] MEDS: ALBUTEROL/IPRATROPIUM (Duoneb) RT SOL 3 ML NEBU INH ×6 (02:14→22:18)
[2025-04-23 06:20] LABS: Basophils # (Auto) 0.1 Thou/mm3 (0.0-0.2); Basophils % (Auto) 0 % (0-2.5); Eosinophils # (Auto) 0.0 Thou/mm3 (0.0-0.5); Eosinophils % (Auto) 0 % (0-10); Hematocrit 29.2 % (36.0-46.0); Hemoglobin 9.6 g/dL (12.0-16.0); Immature Granulocytes Auto 0.95 Thou/mm3 (0.00-0.00); Lymphocytes # (Auto) 0.9 Thou/mm3 (1.0-4.8); Lymphocytes % (Auto) 5 % (10-50); Mean Corpuscular HGB Conc 32.9 g/dl (31.0-37.0); Mean Corpuscular Hemoglobin 25.6 pg (25.0-35.0); Mean Corpuscular Volume 78 fL (80-100); Monocytes # (Auto) 1.4 Thou/mm3 (0.0-0.8); Monocytes % (Auto) 8 % (0-12); Neutrophils # (Auto) 15.0 Thou/mm3 (1.8-7.7); Neutrophils % (Auto) 82 % (37-80); Nucleated Red Blood Cell # 0.00 Thou/mm3 (0.00-0.00); Nucleated Red Blood Cell % 0 /100 WBC (0); Platelet Count 249 Thou/mm3 (140-440); RDW Standard Deviation 40.8 fL (36.4-46.3); Red Blood Count 3.75 Miln/mm3 (4.00-5.20); White Blood Count 18.3 Thou/mm3 (3.6-11.0)
[2025-04-23 06:45] LABS: Alanine Aminotransferase 13 U/L (10-49); Albumin, Serum 3.4 gm/dL (3.4-4.8); Albumin/Globulin Ratio 1.6 (1.2-2.2); Alkaline Phosphatase 50 U/L (46-116); Anion Gap 12 (7-16); Aspartate Amino Transferase 18 U/L (0-34); BUN/Creatinine Ratio 52 Ratio (12-20); Bilirubin,Total 0.3 mg/dL (0.3-1.2); Blood Urea Nitrogen 104 mg/dL (9-23); Calcium 8.4 mg/dL (8.3-10.6); Calcium (Corrected) 8.9 mg/dL (8.5-10.1); Carbon Dioxide 23.8 mMol/L (20.0-31.0); Chloride 102 mMol/L (98-107); Creatinine (Component) 2.0 mg/dL (0.6-1.3); Estimated Creatinine Clearance 28.1 mL/min (>60); Globulin 2.1 gm/dL (2.3-3.5); Glucose 186 mg/dL (74-106); Osmolality,Calculated 313 (275-295); Potassium 4.7 mMol/L (3.4-5.1); Sodium 138 mMol/L (136-145); Total Protein 5.5 gm/dL (5.7-8.2); eGFR 28 See Note
[2025-04-23] MEDS: FLUTICASONE/SALMETEROL 250/50 14 DOSE INH 1 PUFF INH ×2 (07:04→18:19)
[2025-04-23] MEDS: INSULIN LISPRO (AdmeLOG) 1 UNIT/0.01 ML UNIT SC ×4 (07:50→20:55)
--- NOTE | 2025-04-23 08:32 | XR_ITS ---
Examination: CT abdomen and pelvis without contrast. Coronal 3-D reconstructions. Sagittal 2-D reconstructions. Date and time of exam:April 23, 2025, 0925 hours INDICATIONS: Generalized abdominal pain today CTDI: vol (mGy): 9.11 DLP: (mGycm): 495 Technique: Axial images of the abdomen have been obtained, 3 mm slice thickness Intravenous contrast material has not been administered. Low dose protocols were performed. One or more of the following dose reduction techniques were used; automated exposure control, adjustment of the mA and/or KV according to patient size, use of iterative reconstruction technique. Findings: No focal liver or splenic lesions No gallstones No pancreatic or adrenal mass No renal or ureteral calculi, no hydronephrosis Aortic calcification no aneurysmal dilatation No pericecal inflammatory change Abundant stool in the cecum and right colon as well as transverse and descending colon No bowel obstruction Atrophic partially retroverted uterus Large posterior left pelvic cyst, 5.4 cm Bladder intact 12 mm fat-containing umbilical hernia Advanced degenerative disc disease L4-L5, L5-S1 Moderate to advanced narrowing hip joints IMPRESSION: Abundant stool throughout the colon No obstruction Recommend pelvic sonography to assess large posterior left pelvic cyst 5.4 cm 12 mm fat-containing umbilical hernia
[2025-04-23] MEDS: DILTIAZEM CD 180 MG CAPCR PO (08:48)
[2025-04-23] MEDS: ASPIRIN EC 81 MG TABEC PO (08:49)
[2025-04-23] MEDS: METHADONE 100 MG PO (08:49)
[2025-04-23] MEDS: INSULIN GLARGINE (Lantus) 5 UNIT/0.05 ML (PER 5 UNITS) 45 UNIT SC (08:49)
[2025-04-23] MEDS: APIXABAN 2.5 MG TABLET 5 MG PO ×2 (08:49→20:54)
[2025-04-23] MEDS: NICOTINE PATCH 21 MG/24 HR PATCH.TD24 TOP (08:50)
--- NOTE | 2025-04-23 09:46 | ESPR_ITS ---
Documentation for date of: 04/23/25 Subjective Subjective Interval history: Ms. Diaz is a 63-year-old female with past medical history of COPD on 2 L home oxygen, A-fib, hypertension, CKD stage IIIb, [id number] type 2 diabetes, polysubstance use disorder presents to the ED on 04/18 with increased episodes of shortness of breath. Patient states that ever since being discharged on 04/06 for COPD exacerbation she was doing okay; however, tonight she started developing increased level of shortness of breath. Patient states that she tried using her home inhalers including albuterol but those did not help her symptoms. Patient denies having any sick contacts; however, she is reporting some sore throat which has worsened in the past several days. Patient otherwise denies any fever/chills or any other concerning cardiac symptoms at this time. Nephrology consulted for management of THEO. Home medications included amlodipine, aspirin, BuSpar, clonidine, Valium, Eliquis, Trelegy, Lasix, hydralazine, Basaglar, DuoNeb, lactulose, lisinopril, meclizine, methadone, metolazone, metoprolol, Aldactone 04/21/2025: Patient seen and examined at bedside while receiving Duoneb treatment. Complains of diffuse chest pain/tightness, nausea and epigastric pain. Previously seen by nephrology team mid March for contrast induced THEO which resolved with fluids. On current admission, baseline Cr on chart review 1.2-1.4 and on 04/20, creatinine was 1.8, increasing to 2.4 today. Most recent labs Na 130, K 5, Cl 95, BUN 102, Cr 2.3, glucose 444, phos 6.2. 04/22/2025: Patient seen and examined at bedside. Reports not feeling well, nauseous and slightly short of breath despite Duoneb treatments. Inquires to see her children. After fluids, labs all improving: Na 136, K 4.3, Cl 101, BUN 83, 2.0, glucose 365, phosphorus 5.2. 04/23/2025: Patient seen and examined at bedside. Patient complaints of worsening epigastric and abdominal pain with last BM being yesterday which was normal. Still reports some SOB. BUN markedly increased 83 to 104, Cr stable at 2.0. Recommend to start IV Lasix 40 BID with albumin 25g BID to give 30 minutes before Lasix administration. CT abd/pel ordered. Exam Vital Signs Temp Pulse Resp BP Pulse Ox O2 Del Method O2 Flow Rate 96.9 F 81 16 139/62 H 94 L Nasal Cannula 2 04/23/25 07:51 04/23/25 08:48 04/23/25 07:51 04/23/25 08:48 04/23/25 07:51 04/23/25 07:51 04/23/25 07:51 Narrative Exam GENERAL: AOx3, no acute distress HEENT: NC/AT, mucous membranes moist, bilateral sclera anicteric CARDIOVASCULAR: regular rate and rhythm, S1/S2 present, no murmurs appreciated PULMONARY: b/l/ diffuse inspiratory and expiratory wheezes ABDOMINAL: soft, non-distended, no rebound/guarding, bowel sounds present, mild abdominal edema, diffuse tenderness to palpation greatest at epigastric area EXTREMITIES: no lower leg edema, mild non-pitting edema at hips SKIN: warm and dry, intact, no rashes NEURO: CN II-XII grossly intact, no focal deficits, alert, following commands Objective Labs 04/23/25 05:11 04/23/25 05:11 Labs: Laboratory Results - last 24 hr 04/23/25 05:11 WBC 18.3 H RBC 3.75 L Hgb 9.6 L Hct 29.2 L MCV 78 L MCH 25.6 MCHC 32.9 RDW Std Deviation 40.8 Plt Count 249 Neut % (Auto) 82 H Lymph % (Auto) 5 L [place] % (Auto) 8 Eos % (Auto) 0 Baso % (Auto) 0 Neut # (Auto) 15.0 H Lymph # (Auto) 0.9 L [place] # (Auto) 1.4 H Eos # (Auto) 0.0 Baso # (Auto) 0.1 Immature Gran # (Auto) 0.95 H Absolute Nucleated RBC 0.00 Immature Gran % 5 H Nucleated RBC % 0 Sodium 138 Potassium 4.7 Chloride 102 Carbon Dioxide 23.8 Anion Gap 12 BUN 104 H* Creatinine 2.0 H Estim Creat Clear Calc 28.1 L eGFR 28 L BUN/Creatinine Ratio 52 H Glucose 186 H D Calculated Osmolality 313 H Calcium 8.4 Corrected Calcium 8.9 Total Bilirubin 0.3 AST 18 ALT 13 Alkaline Phosphatase 50 Total Protein 5.5 L Albumin 3.4 Globulin 2.1 L Albumin/Globulin Ratio 1.6 ABG Interpretation ABG results: 04/18/25 20:40 VBG pH 7.47 VBG pCO2 36 VBG pO2 72 H VBG Base Excess 2 Quality Measures Quality Measures VTE prophylaxis Assessment & Plan Assessment Current Active Medications: Generic Name Dose Route Start Last Admin Trade Name Lisa PRN Reason Stop Dose Admin Acetaminophen 650 mg 04/19/25 07:42 04/19/25 08:17 Acetaminophen 325 Mg Tablet PO 05/18/25 22:12 650 mg Q6H PRN Administration Mild Pain 1-3 or fever >100.1 Albuterol/Ipratropium 3 ml 04/22/25 11:00 04/23/25 07:04 Albuterol/Ipratropium (Duoneb) Rt Blanca 3 Ml Nebu INH 05/22/25 10:59 3 ml Q4HRRT KIP Administration Apixaban 5 mg 04/19/25 09:00 04/23/25 08:49 Apixaban 2.5 Mg Tablet PO 05/19/25 08:59 5 mg BID KIP Administration Aspirin 81 mg 04/19/25 09:00 04/23/25 08:49 Aspirin Ec 81 Mg Tabec PO 05/19/25 08:59 81 mg QDAY KIP Administration Buspirone HCl 5 mg 04/19/25 09:00 04/23/25 08:48 Buspirone Hcl 5 Mg Tablet PO 05/19/25 08:59 5 mg QDAY KIP Administration Methadone 100 Mg 0 ea 04/19/25 14:00 04/23/25 08:49 Cups PO 05/19/25 13:59 1 bottle DAILY KIP Administration Protocol Dextrose 25 ml 04/18/25 22:19 Dextrose 50%-Water Inj 50 Ml Syringe IV 05/18/25 22:18 Q15MIN PRN BG 50-70 responsive npo pt Dextrose 50 ml 04/18/25 22:19 Dextrose 50%-Water Inj 50 Ml Syringe IV 05/18/25 22:18 Q15MIN PRN BG <50 OR BG <70 & pt unresponsive Diazepam 5 mg 04/18/25 22:26 04/23/25 00:25 Diazepam 5 Mg Tablet PO 04/24/25 08:59 5 mg BID PRN Administration MUSCLE SPASMS Diltiazem HCl 180 mg 04/20/25 09:00 04/23/25 08:48 Diltiazem Cd 180 Mg Capcr PO 05/20/25 08:59 180 mg QDAY KIP Administration Furosemide 40 mg 04/23/25 09:00 Furosemide Inj 10 Mg/Ml 4ml Vial IVP 05/23/25 08:59 BIDD KIP Glucagon 1 mg 04/18/25 22:19 Glucagon Inj 1 Mg Vial IM Q15MIN PRN BG <70, and no IV access Hydralazine HCl 100 mg 04/19/25 08:45 04/23/25 05:38 Hydralazine Hcl 25 Mg Tablet PO 05/19/25 08:44 100 mg TID KIP Administration Azithromycin 500 mg/ Sodium 250 mls @ 250 mls/hr 04/19/25 21:00 04/23/25 05:54 Chloride IV 04/26/25 20:59 Not Given QDAY@2100 KIP Albumin Human 25 gm in 100 mls @ 100 mls/hr 04/23/25 08:54 Albuminar-25 Ivpb IV 04/26/25 08:53 QDAY KIP Insulin Glargine 45 unit 04/23/25 09:00 04/23/25 08:49 Insulin Glargine (Lantus) 5 Unit/0.05 Ml (Per 5 Units) SC 05/23/25 08:59 45 unit QDAY [facility] Administration Insulin Human Lispro 0 unit 04/19/25 21:00 04/23/25 07:50 Insulin Lispro (Admelog) 1 Unit/0.01 Ml Unit SC 05/19/25 20:59 2 unit ACHS [facility] Administration Protocol Insulin Human Lispro 12 unit 04/22/25 11:30 04/22/25 17:04 Insulin Lispro (Admelog) 1 Unit/0.01 Ml Unit SC 05/22/25 11:29 Not Given ACHS [facility] Lidocaine 1 patch 04/22/25 16:48 04/22/25 17:15 Lidocaine 5% 1 Patch TOP 05/22/25 16:47 1 patch DAILY PRN Administration LOCALIZED PAIN Methylprednisolone Sodium Succinate 60 mg 04/20/25 21:00 04/23/25 05:55 Methylprednisolone Sod Succ 40 Mg Vial IVP 04/27/25 20:59 Not Given BID KIP Nicotine 21 mg 04/21/25 09:00 04/23/25 08:50 Nicotine Patch 21 Mg/24 Hr Patch.Td24 TOP 05/21/25 08:59 21 mg QDAY KIP Administration Nitroglycerin 0.4 mg 04/20/25 08:14 04/20/25 11:22 Nitroglycerin 0.4 Mg Subl Btl #25 SL 0.4 mg Q5MIN PRN Administration CHEST PAIN Ondansetron HCl 4 mg 04/18/25 22:13 04/22/25 01:40 Ondansetron Inj 2 Mg/Ml Inj 2 Ml IVP 05/18/25 22:12 4 mg Q6H PRN Administration NAUSEA OR VOMITING Protocol Pantoprazole Sodium 40 mg 04/20/25 09:00 04/22/25 08:43 Pantoprazole Inj 40 Mg Vial IVP 05/20/25 08:59 40 mg QDAY KIP Administration Fluticasone/Salmeterol 1 puff 04/19/25 07:00 04/23/25 07:04 Fluticasone/Salmeterol 250/50 14 Dose Inh INH 05/19/25 06:59 1 puff BIDRT KIP Administration Sennosides 1 tab 04/18/25 22:13 Senna Tablet PO 05/18/25 22:12 QDAY PRN constipation Protocol Sodium Chloride 3 ml 04/21/25 10:39 04/21/25 11:03 Sodium Chloride Rt Blanca 0.9% 3 Ml Nebu INH 05/21/25 10:38 3 ml PRN PRN Administration SOLN Spironolactone 50 mg 04/19/25 09:00 04/19/25 09:53 Spironolactone 25 Mg Tablet PO 05/19/25 08:59 50 mg QDAY KIP Administration Plan Christina Diaz is a 64-year-old F with a PMH of ESBL UTI, COPD on 2-3 L at home, atrial fibrillation on Eliquis, Takotsubo's cardiomyopathy, substance use disorder (heroin and methamphetamine), IDDM, HTN, viral meningitis, and stroke who was admitted for acute on chronic COPD exacerbation. #THEO on CKDIIIb #Hyperkalemia, resolved #Hyperphosphatemia, resolving Admitted for acute on chronic COPD exacerbation 04/18 and is being treated with abx (Azithromycin and Ceftriaxone) and steroids. Despite frequent Duoneb txs and frequent increasing high doses of steroids, patient is still short of breath. Previously seen by nephrology team mid March for contrast induced THEO on CKD which resolved with fluids. Cr on admission 04/19 was 1.6 (estimated BL 1.2-1.4 on chart review), and has been steadily increasing, 1.8 and now 2.4. Most recent labs Na 130, K 5 (was 5.6), Cl 95, Bicarb 21, BUN 102, Cr 2.3, glucose 444, phos 6.2. CK 51. Ddx includes prerenal vs intrinsic. Prerenal THEO ddx: acute COPD exacerbation, continued use of substances, and/or dehydration, all resulting in decreased renal blood flow. Intrinsic THEO ddx: medication induced with frequent high dose steroids or antibiotics and/or substance use. No contrast studies performed. Ulytes consistent with prerenal THEO etiology. No signs of infection in UA (only 2+ blood with 86 RBC), UDS positive for benzos 04/23 CTAP shows large stool burden, no obstruction, large posterior L pelvic cyst 5.4 cm, and 12mm fat containing umbilical hernia. Lab values initially improved after 2L of NS and ~1L fluids from abx, but now BUN markedly increased 83 to 104 with stable Cr. Ddx for increase in BUN but not Cr: steroid use, dehydration. No current indication for dialysis, but will be considered if lab values continue to not improve following diuretics. Plan: -Recommend to start IV Lasix 40 mg BID with albumin 25g BID 30 minutes before administration of Lasix -Renally dose medications -Avoid nephrotoxins #Acute Hypoxic Respiratory Failure secondary to #COPD Exacerbation #COPD #Chest pain #Leukocytosis #Lower Peripheral Edema #Atrial Fibrillation, rate controlled #History of Atrial Fibrillation with rvr #Hypertension #Chronic Hepatitis C #Type 2 Diabetes Mellitus, Insulin-Dependent #Hyperglycemia, likely secondary to steroids #Substance Use Disorder (Methamphetamine and Heroin) #Anxiety -Management per primary team Plan of care discussed with attending Dr. Samayoa. Rupali Giordano, DO PGY-1 Internal Medicine Attending Provider Attestation/Addendum Patient seen and examined with resident physician Dr. Giordano. Note reviewed, agree with findings and recommendations. Patient with a acute renal failure. Known to me from last admission with acute renal failure secondary to contrast nephropathy superimposed on CKD stage III. Currently with worsening azotemia. Suspect prerenal versus intrinsic renal failure. Urine lytes are consistent with prerenal azotemia. Patient today seems to have fluid overload. Hold fluids. 1 dose of diuretics given. CT abdomen showed no acute pathology. White count 18.3 potassium 4.7, BUN 104, creatinine 2, LFTs normal, albumin 3.4 CT abdomen/pelvis showed a large left pelvic cyst. If no improvement in renal function despite medical management will plan for renal replacement therapy tomorrow.
--- NOTE | 2025-04-23 10:03 | ESPR_ITS ---
Documentation for date of: 04/23/25 Senior Resident Attestation: I have discussed the case with supervising physician and customer marketing intern physician involved in the care of patient. I personally saw and examined patient and discussed the assessment and plan with the entire medical team, including attending. I agree with assessment and plan as documented above. Angelika Puga MD PGY-2 Internal Medicine Subjective Subjective Interval history: Overnight events: No acute events overnight. Patient's peripheral IV access moved removed, reason was unclear as to why. As a result, the patient did not receive azithromycin and methylprednisolone overnight. Patient was seen and examined at bedside. AM vitals and labs reviewed. Patient was seen today after returning from CT abdomen. The patient endorses continued pain in right abdominal space, worse in right lower quadrant than right upper quadrant. Patient stated that she is doing better with her breathing as compared to yesterday, but does not feel that she is fully back to baseline. Patient still endorses some chest pain. Otherwise, the patient has no other complaints. Review of systems otherwise negative except for what is mentioned above. Exam Vital Signs Temp Pulse Resp BP Pulse Ox O2 Del Method O2 Flow Rate 96.9 F 81 16 139/62 H 94 L Nasal Cannula 2 04/23/25 07:51 04/23/25 08:48 04/23/25 07:51 04/23/25 08:48 04/23/25 07:51 04/23/25 07:51 04/23/25 07:51 Narrative Exam Physical Exam: General: Alert, no acute distress. Skin: Warm, dry, intact, no obvious rash. Head: Normocephalic, atraumatic. Eye: Normal conjunctiva, PERRL. Cardiovascular: Regular rate and rhythm, no murmur, +S1/S2. Respiratory: Respirations slightly labored on 2L NC. Diffuse wheezing heard throughout lung mehta equally. Gastrointestinal: Soft, distended. Tenderness to light palpation of RUQ and RLQ abdomen, RLQ > RUQ in pain. Rebound tenderness present. Extremities: 1+ edema in BLE to knees, no cyanosis, no clubbing. 2+ radial pulse bilaterally, 2+ pedal pulse bilaterally. Neuro: No focal deficits observed. Conversant, moving all extremities. No overt cerebellar signs/incoordination. Psychiatric: Cooperative, appropriate affect. Objective Labs 04/24/25 04:30 04/24/25 04:30 Labs: Laboratory Results - last 24 hr 04/23/25 05:11 WBC 18.3 H RBC 3.75 L Hgb 9.6 L Hct 29.2 L MCV 78 L MCH 25.6 MCHC 32.9 RDW Std Deviation 40.8 Plt Count 249 Neut % (Auto) 82 H Lymph % (Auto) 5 L Reeves % (Auto) 8 Eos % (Auto) 0 Baso % (Auto) 0 Neut # (Auto) 15.0 H Lymph # (Auto) 0.9 L Reeves # (Auto) 1.4 H Eos # (Auto) 0.0 Baso # (Auto) 0.1 Immature Gran # (Auto) 0.95 H Absolute Nucleated RBC 0.00 Immature Gran % 5 H Nucleated RBC % 0 Sodium 138 Potassium 4.7 Chloride 102 Carbon Dioxide 23.8 Anion Gap 12 BUN 104 H* Creatinine 2.0 H Estim Creat Clear Calc 28.1 L eGFR 28 L BUN/Creatinine Ratio 52 H Glucose 186 H D Calculated Osmolality 313 H Calcium 8.4 Corrected Calcium 8.9 Total Bilirubin 0.3 AST 18 ALT 13 Alkaline Phosphatase 50 Total Protein 5.5 L Albumin 3.4 Globulin 2.1 L Albumin/Globulin Ratio 1.6 ABG Interpretation ABG results: 04/18/25 20:40 VBG pH 7.47 VBG pCO2 36 VBG pO2 72 H VBG Base Excess 2 Quality Measures Quality Measures VTE prophylaxis Assessment & Plan Assessment Current Active Medications: Generic Name Dose Route Start Last Admin Trade Name Freq PRN Reason Stop Dose Admin Acetaminophen 650 mg 04/19/25 07:42 04/19/25 08:17 Acetaminophen 325 Mg Tablet PO 05/18/25 22:12 650 mg Q6H PRN Administration Mild Pain 1-3 or fever >100.1 Albuterol/Ipratropium 3 ml 04/22/25 11:00 04/23/25 07:04 Albuterol/Ipratropium (Duoneb) Rt Blanca 3 Ml Nebu INH 05/22/25 10:59 3 ml Q4HRRT KIP Administration Apixaban 5 mg 04/19/25 09:00 04/23/25 08:49 Apixaban 2.5 Mg Tablet PO 05/19/25 08:59 5 mg BID KIP Administration Aspirin 81 mg 04/19/25 09:00 04/23/25 08:49 Aspirin Ec 81 Mg Tabec PO 05/19/25 08:59 81 mg QDAY KIP Administration Buspirone HCl 5 mg 04/19/25 09:00 04/23/25 08:48 Buspirone Hcl 5 Mg Tablet PO 05/19/25 08:59 5 mg QDAY KIP Administration Methadone 100 Mg 0 ea 04/19/25 14:00 04/23/25 08:49 Cups PO 05/19/25 13:59 1 bottle DAILY KIP Administration Protocol Dextrose 25 ml 04/18/25 22:19 Dextrose 50%-Water Inj 50 Ml Syringe IV 05/18/25 22:18 Q15MIN PRN BG 50-70 responsive npo pt Dextrose 50 ml 04/18/25 22:19 Dextrose 50%-Water Inj 50 Ml Syringe IV 05/18/25 22:18 Q15MIN PRN BG <50 OR BG <70 & pt unresponsive Diazepam 5 mg 04/18/25 22:26 04/23/25 00:25 Diazepam 5 Mg Tablet PO 04/24/25 08:59 5 mg BID PRN Administration MUSCLE SPASMS Diltiazem HCl 180 mg 04/20/25 09:00 04/23/25 08:48 Diltiazem Cd 180 Mg Capcr PO 05/20/25 08:59 180 mg QDAY KIP Administration Furosemide 40 mg 04/23/25 09:00 Furosemide Inj 10 Mg/Ml 4ml Vial IVP 05/23/25 08:59 BIDD KIP Glucagon 1 mg 04/18/25 22:19 Glucagon Inj 1 Mg Vial IM Q15MIN PRN BG <70, and no IV access Hydralazine HCl 100 mg 04/19/25 08:45 04/23/25 05:38 Hydralazine Hcl 25 Mg Tablet PO 05/19/25 08:44 100 mg TID KIP Administration Azithromycin 500 mg/ Sodium 250 mls @ 250 mls/hr 04/19/25 21:00 04/23/25 05:54 Chloride IV 04/26/25 20:59 Not Given QDAY@2100 KIP Albumin Human 25 gm in 100 mls @ 100 mls/hr 04/23/25 08:54 Albuminar-25 Ivpb IV 04/26/25 08:53 QDAY [facility] Insulin Glargine 45 unit 04/23/25 09:00 04/23/25 08:49 Insulin Glargine (Lantus) 5 Unit/0.05 Ml (Per 5 Units) SC 05/23/25 08:59 45 unit QDAY KIP Administration Insulin Human Lispro 0 unit 04/19/25 21:00 04/23/25 07:50 Insulin Lispro (Admelog) 1 Unit/0.01 Ml Unit SC 05/19/25 20:59 2 unit ACHS KIP Administration Protocol Insulin Human Lispro 12 unit 04/22/25 11:30 04/22/25 17:04 Insulin Lispro (Admelog) 1 Unit/0.01 Ml Unit SC 05/22/25 11:29 Not Given ACHS KIP Lidocaine 1 patch 04/22/25 16:48 04/22/25 17:15 Lidocaine 5% 1 Patch TOP 05/22/25 16:47 1 patch DAILY PRN Administration LOCALIZED PAIN Methylprednisolone Sodium Succinate 60 mg 04/20/25 21:00 04/23/25 05:55 Methylprednisolone Sod Succ 40 Mg Vial IVP 04/27/25 20:59 Not Given BID KIP Nicotine 21 mg 04/21/25 09:00 04/23/25 08:50 Nicotine Patch 21 Mg/24 Hr Patch.Td24 TOP 05/21/25 08:59 21 mg QDAY KIP Administration Nitroglycerin 0.4 mg 04/20/25 08:14 04/20/25 11:22 Nitroglycerin 0.4 Mg Subl Btl #25 SL 0.4 mg Q5MIN PRN Administration CHEST PAIN Ondansetron HCl 4 mg 04/18/25 22:13 04/22/25 01:40 Ondansetron Inj 2 Mg/Ml Inj 2 Ml IVP 05/18/25 22:12 4 mg Q6H PRN Administration NAUSEA OR VOMITING Protocol Pantoprazole Sodium 40 mg 04/20/25 09:00 04/22/25 08:43 Pantoprazole Inj 40 Mg Vial IVP 05/20/25 08:59 40 mg QDAY KIP Administration Fluticasone/Salmeterol 1 puff 04/19/25 07:00 04/23/25 07:04 Fluticasone/Salmeterol 250/50 14 Dose Inh INH 05/19/25 06:59 1 puff BIDRT KIP Administration Sennosides 1 tab 04/18/25 22:13 Senna Tablet PO 05/18/25 22:12 QDAY PRN constipation Protocol Sodium Chloride 3 ml 04/21/25 10:39 04/21/25 11:03 Sodium Chloride Rt Blanca 0.9% 3 Ml Nebu INH 05/21/25 10:38 3 ml PRN PRN Administration SOLN Spironolactone 50 mg 04/19/25 09:00 04/19/25 09:53 Spironolactone 25 Mg Tablet PO 05/19/25 08:59 50 mg QDAY KIP Administration Plan Mrs. Diaz is a 64 year old female with a history of COPD (2-3L home O2), A-fib on Eliquis, hypertension, CKD stage IIIb, T2DM, polysubstance use disorder, history of ESBL UTI, Takotsubo cardiomyopathy [diagnosed 2023] who came for worsening shortness of breath. Patient was admitted for management of acute hypoxic failure due to COPD. #Acute on chronic hypoxic failure due to #Acute on Chronic COPD exacerbation #COPD #Nicotine Use Disorder/Current Smoker Patient endorsed worsening of shortness of breath and chest pain that led to her seeking treatment in the ED on 04/18/2025. Patient has been using her Trelegy inhaler once a day and her albuterol inhaler 4 times a day after her recent discharge on 04/06. Home medications were providing minimal relief. Patient had a light yellow sputum production. Due to the patient's COPD exacerbation history, this is most likely another COPD exacerbation. Patient's acute episode of dyspnea meets criteria for COPD exacerbation. Chest x-ray 04/18 negative for acute findings, repeat chest x-ray 04/21 also negative for acute findings VBG 04/18 pH 7.47, PCO2 36, PO2 72, O2 sat 97% ? Maintain patient's oxygen saturation between 88% and 92% given history of COPD ? Increased DuoNeb 3 mL frequency from every 6 hour [employer] to every 4 hours [employer] ? Continue methylprednisolone 60 mg IVP twice daily, will consider decreasing dose if improvement is noted in patient's respiratory status tomorrow [04/23] ? Continue fluticasone/salmeterol 1 puff twice daily RT ? Continue to monitor patient's oxygen status ? Recommend CT chest scan in 3 to 6 months to follow-up on CTA chest on 04/03 ? Coccidioides panel not ordered due to recent negative on 04/04/2025 ? Discontinued ceftriaxone due to low suspicion of PNA given negative chest x- ray findings x 2 #Leukocytosis Patient was producing light yellow sputum via cough and has a history of green mucus production. Patient is more susceptible to infection due to history of COPD and frequent steroid use. Viral respiratory panel negative 04/18, strep group A negative 04/18. WBC noted to be elevated throughout current admission, possibly due to increased steroid use to manage acute hypoxic failure due to COPD exacerbation. ? Will continue azithromycin 500 mg daily, stop after today's dose [started 04/18, on day 5] ? Will continue to monitor with daily CBC #Constipation Patient had abdominal pain 04/22 and 04/23. CT abdomen without contrast ordered due to concerns for possible acute process such as appendicitis. CT abdomen 04/23 negative for acute concerns or bowel obstructions, but large stool burden noted. Patient is on lactulose 10g as needed for constipation at home, potentially related to history of opioid use. ? 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 Noncardiac etiology suspected. Troponins negative on 04/18 and 04/20. EKG 04/21 negative for acute ischemic changes. ? Will continue to anticipate improvement and worsening of chest pain depending on respiratory status, suspect that treatment of COPD will resolve chest pain ? Will continue patient's Eliquis ? Pain relief as indicated #Lower extremity edema (resolving) #History of Takatsubo cardiomyopathy [2023] Patient presented with lower peripheral edema, had BNP of 116 on 04/18, and was given IV Lasix 40 mg one-time dose on 04/18. TTE showed normal left ventricular size and function with EF 60%, no wall motion abnormalities noted. ? Will continue to monitor fluid status ? Received 1L NS on 04/22 per Nephrology recommendations ? Started patient on Lasix 40 mg IV twice daily with albumin 25 mg/kg twice daily schedule 30 minutes before Lasix per recommendations by Nephrology #Atrial fibrilation with rate control #History of A-fib with RVR Patient has a history of atrial fibrillation with RVR. EKG 04/21 shows sinus rhythm. ? Continue diltiazem 180 mg daily ? Continue Eliquis 5 mg p.o. twice daily ? Continue aspirin 81 mg daily ? Continue to hold home metoprolol #Hypertension Patient has a history of hypertension on spironolactone, metazalone, lisinopril, and hydralazine at home. Patient presented to ED with BP of 137/82. ? Continue hydralazine 100 mg p.o. 3 times daily ? Continue spironolactone 50 mg p.o. daily ? Continue diltiazem 180 mg p.o. daily #Type 2 diabetes mellitus, dependent on insulin #Hyperglycemia, likely due to steroid use ? Will continue to monitor fasting glucose ? Continue intermediate sliding scale ? Continue glargine 45 units ? Continue insulin lispro 12 units 3 times daily (with meals) ? If steroid-induced hyperglycemia on intermediate sliding scale is an adequate with current plan, will swap to glargine 40 units BID with intermedite sliding scale #THEO on CKD stage IIIb, improving #CKD Stage IIIb Patient has a history of CKD and has remained stable since her last admission on 04/04. ? Will continue to monitor with daily renal panel ? Received 1L NS on 04/22 per Nephrology recommendations #Chronic hepatitis C infection Patient tested positive for hepatitis C antibody on 04/21/2025 and 02/18/2024. ? Will continue to monitor with daily CMP #Polysubstance use disorder (methamephetamine and heroin) Patient has history of methamphetamine and heroin abuse. On methadone outpatient. ? Will continue methadone 100 mg p.o. daily #Anxiety Patient has history of anxiety. ? Will continue with patient's home BuSpar 5 mg p.o. daily and diazepam 5 mg p.o. twice daily as needed DVT Prophylaxis: Eliquis GI Prophylaxis: Pantoprazole Bowel: Senna Diet: Cardiac diet with consistent low carb Gama: N/A Lines: Peripheral IV Antibiotics: Azithromycin 500mg daily [day 5, start date 04/18] Code Status: FULL Reason for Hospitalization: Abdominal pain Other Barriers to Discharge: N/A Patient plan of care was discussed with the senior resident Dr. Lux (PGY-2) and attending physician Dr. Wilmer Duncan, PGY1 Attending Provider Attestation/Addendum I attest that I was physically present for the evaluation, physical examination, lab and imaging review of the patient with the residents. I discussed the case with the residents and agree with the findings and plans of care as documented above. Subash Bishwakarma, MD
[2025-04-23] MEDS: ALBUMIN HUMAN 25% IVPB 25 GM/100 ML BTL IV (10:25)
[2025-04-23] MEDS: FUROSEMIDE INJ 10 MG/ML 4ML VIAL 40 MG IVP ×2 (10:49→17:55)
[2025-04-24] VITALS (17 sets, daily range): BP systolic 129–161; BP diastolic 58–71; PULSE 68–112; RESP 12–94; TEMP 36.1–36.5; O2SAT 94–100; BMI 26.5
[2025-04-24] MEDS: ALBUTEROL/IPRATROPIUM (Duoneb) RT SOL 3 ML NEBU INH ×5 (01:43→22:27)
[2025-04-24] MEDS: HYDROmorphone INJ 2 MG/ML VIAL 0.25 MG IVP ×2 (04:29→06:13)
[2025-04-24] MEDS: LIDOCAINE 5% 1 PATCH TOP (04:34)
[2025-04-24 04:49] LABS: Basophils # (Auto) 0.0 Thou/mm3 (0.0-0.2); Basophils % (Auto) 0 % (0-2.5); Eosinophils # (Auto) 0.0 Thou/mm3 (0.0-0.5); Eosinophils % (Auto) 0 % (0-10); Hematocrit 31.8 % (36.0-46.0); Hemoglobin 10.1 g/dL (12.0-16.0); Immature Granulocytes Auto 0.58 Thou/mm3 (0.00-0.00); Lymphocytes # (Auto) 0.6 Thou/mm3 (1.0-4.8); Lymphocytes % (Auto) 3 % (10-50); Mean Corpuscular HGB Conc 31.8 g/dl (31.0-37.0); Mean Corpuscular Hemoglobin 24.9 pg (25.0-35.0); Mean Corpuscular Volume 79 fL (80-100); Monocytes # (Auto) 0.9 Thou/mm3 (0.0-0.8); Monocytes % (Auto) 5 % (0-12); Neutrophils # (Auto) 17.3 Thou/mm3 (1.8-7.7); Neutrophils % (Auto) 89 % (37-80); Nucleated Red Blood Cell # 0.00 Thou/mm3 (0.00-0.00); Nucleated Red Blood Cell % 0 /100 WBC (0); Platelet Count 224 Thou/mm3 (140-440); RDW Standard Deviation 41.1 fL (36.4-46.3); Red Blood Count 4.05 Miln/mm3 (4.00-5.20); White Blood Count 19.4 Thou/mm3 (3.6-11.0)
[2025-04-24 05:14] LABS: Alanine Aminotransferase 18 U/L (10-49); Albumin, Serum 3.5 gm/dL (3.4-4.8); Albumin/Globulin Ratio 1.7 (1.2-2.2); Alkaline Phosphatase 54 U/L (46-116); Anion Gap 13 (7-16); Aspartate Amino Transferase 20 U/L (0-34); BUN/Creatinine Ratio 48 Ratio (12-20); Bilirubin,Total 0.4 mg/dL (0.3-1.2); Blood Urea Nitrogen 87 mg/dL (9-23); Calcium 8.5 mg/dL (8.3-10.6); Calcium (Corrected) 8.9 mg/dL (8.5-10.1); Carbon Dioxide 23.8 mMol/L (20.0-31.0); Chloride 100 mMol/L (98-107); Creatinine (Component) 1.8 mg/dL (0.6-1.3); Estimated Creatinine Clearance 31.2 mL/min (>60); Globulin 2.1 gm/dL (2.3-3.5); Glucose 327 mg/dL (74-106); Magnesium 2.2 mg/dL (1.6-2.6); Osmolality,Calculated 313 (275-295); Phosphorous 4.1 mg/dL (2.4-5.1); Potassium 4.6 mMol/L (3.4-5.1); Sodium 137 mMol/L (136-145); Total Protein 5.6 gm/dL (5.7-8.2); eGFR 31 See Note
[2025-04-24] MEDS: FUROSEMIDE INJ 10 MG/ML 4ML VIAL 40 MG IVP ×2 (05:25→17:38)
[2025-04-24] MEDS: FLUTICASONE/SALMETEROL 250/50 14 DOSE INH 1 PUFF INH (07:14)
[2025-04-24] MEDS: INSULIN LISPRO (AdmeLOG) 1 UNIT/0.01 ML UNIT SC ×4 (07:59→21:08)
--- NOTE | 2025-04-24 08:47 | ESPR_ITS ---
Documentation for date of: 04/24/25 Subjective Subjective Interval history: Ms. Diaz is a 63-year-old female with past medical history of COPD on 2 L home oxygen, A-fib, hypertension, CKD stage IIIb, [id number] type 2 diabetes, polysubstance use disorder presents to the ED on 04/18 with increased episodes of shortness of breath. Patient states that ever since being discharged on 04/06 for COPD exacerbation she was doing okay; however, tonight she started developing increased level of shortness of breath. Patient states that she tried using her home inhalers including albuterol but those did not help her symptoms. Patient denies having any sick contacts; however, she is reporting some sore throat which has worsened in the past several days. Patient otherwise denies any fever/chills or any other concerning cardiac symptoms at this time. Nephrology consulted for management of THEO. Home medications included amlodipine, aspirin, BuSpar, clonidine, Valium, Eliquis, Trelegy, Lasix, hydralazine, Basaglar, DuoNeb, lactulose, lisinopril, meclizine, methadone, metolazone, metoprolol, Aldactone 04/21/2025: Patient seen and examined at bedside while receiving Duoneb treatment. Complains of diffuse chest pain/tightness, nausea and epigastric pain. Previously seen by nephrology team mid March for contrast induced THEO which resolved with fluids. On current admission, baseline Cr on chart review 1.2-1.4 and on 04/20, creatinine was 1.8, increasing to 2.4 today. Most recent labs Na 130, K 5, Cl 95, BUN 102, Cr 2.3, glucose 444, phos 6.2. 04/22/2025: Patient seen and examined at bedside. Reports not feeling well, nauseous and slightly short of breath despite Duoneb treatments. Inquires to see her children. After fluids, labs all improving: Na 136, K 4.3, Cl 101, BUN 83, 2.0, glucose 365, phosphorus 5.2. 04/23/2025: Patient seen and examined at bedside. Patient complaints of worsening epigastric and abdominal pain with last BM being yesterday which was normal. Still reports some SOB. BUN markedly increased 83 to 104, Cr stable at 2.0. Recommend to start IV Lasix 40 BID with albumin 25g BID to give 30 minutes before Lasix administration. CT abd/pel ordered. 04/24/2025: Patient seen and examined at bedside. Reports intense, constant pain across lower back and at R abdomen. Breathing slightly improved. BUN decreased to 87, Cr improved at 1.8. Good urine output of 4.7L over last 24h. Recommend to continue IV lasix 40 mg BID with albumin 25 g BID for 3 days (04/23- ). Exam Vital Signs Temp Pulse Resp BP Pulse Ox O2 Del Method O2 Flow Rate 97.0 F 84 18 148/65 H 98 Nasal Cannula 2 04/24/25 08:00 04/24/25 08:00 04/24/25 08:00 04/24/25 08:00 04/24/25 08:00 04/24/25 08:00 04/24/25 08:00 Narrative Exam GENERAL: AOx3, tearful and in pain HEENT: NC/AT, mucous membranes moist, bilateral sclera anicteric CARDIOVASCULAR: regular rate and rhythm, S1/S2 present, no murmurs appreciated PULMONARY: b/l diffuse inspiratory and expiratory wheezes ABDOMINAL: soft, non-distended, no rebound/guarding, bowel sounds present, mild abdominal edema, diffuse tenderness to palpation greatest at epigastric area and RLQ MSK: tenderness to palpation upper lumbar area and paraspinal muscles EXTREMITIES: no lower leg edema, 1+ pitting edema at hips, RUE swelling SKIN: warm and dry, intact, no rashes NEURO: CN II-XII grossly intact, no focal deficits, alert, following commands Objective Labs 04/25/25 04:30 04/25/25 04:30 Labs: Laboratory Results - last 24 hr 04/24/25 04:30 WBC 19.4 H RBC 4.05 Hgb 10.1 L Hct 31.8 L MCV 79 L MCH 24.9 L MCHC 31.8 RDW Std Deviation 41.1 Plt Count 224 Neut % (Auto) 89 H Lymph % (Auto) 3 L [place] % (Auto) 5 Eos % (Auto) 0 Baso % (Auto) 0 Neut # (Auto) 17.3 H Lymph # (Auto) 0.6 L [place] # (Auto) 0.9 H Eos # (Auto) 0.0 Baso # (Auto) 0.0 Immature Gran # (Auto) 0.58 H Absolute Nucleated RBC 0.00 Immature Gran % 3 H Nucleated RBC % 0 Sodium 137 Potassium 4.6 Chloride 100 Carbon Dioxide 23.8 Anion Gap 13 BUN 87 H Creatinine 1.8 H Estim Creat Clear Calc 31.2 L eGFR 31 L BUN/Creatinine Ratio 48 H Glucose 327 H D Calculated Osmolality 313 H Calcium 8.5 Corrected Calcium 8.9 Phosphorus 4.1 Magnesium 2.2 Total Bilirubin 0.4 AST 20 ALT 18 Alkaline Phosphatase 54 Total Protein 5.6 L Albumin 3.5 Globulin 2.1 L Albumin/Globulin Ratio 1.7 ABG Interpretation ABG results: 04/18/25 20:40 VBG pH 7.47 VBG pCO2 36 VBG pO2 72 H VBG Base Excess 2 Quality Measures Quality Measures VTE prophylaxis Assessment & Plan Assessment Current Active Medications: Generic Name Dose Route Start Last Admin Trade Name Freq PRN Reason Stop Dose Admin Acetaminophen 650 mg 04/19/25 07:42 04/19/25 08:17 Acetaminophen 325 Mg Tablet PO 05/18/25 22:12 650 mg Q6H PRN Administration Mild Pain 1-3 or fever >100.1 Albuterol/Ipratropium 3 ml 04/22/25 11:00 04/24/25 07:14 Albuterol/Ipratropium (Duoneb) Rt Blanca 3 Ml Nebu INH 05/22/25 10:59 3 ml Q4HRRT KIP Administration Apixaban 5 mg 04/19/25 09:00 04/23/25 20:54 Apixaban 2.5 Mg Tablet PO 05/19/25 08:59 5 mg BID KIP Administration Aspirin 81 mg 04/19/25 09:00 04/23/25 08:49 Aspirin Ec 81 Mg Tabec PO 05/19/25 08:59 81 mg QDAY KIP Administration Buspirone HCl 5 mg 04/19/25 09:00 04/23/25 08:48 Buspirone Hcl 5 Mg Tablet PO 05/19/25 08:59 5 mg QDAY KIP Administration Methadone 100 Mg 0 ea 04/19/25 14:00 04/23/25 08:49 Cups PO 05/19/25 13:59 1 bottle DAILY KIP Administration Protocol Dextrose 25 ml 04/18/25 22:19 Dextrose 50%-Water Inj 50 Ml Syringe IV 05/18/25 22:18 Q15MIN PRN BG 50-70 responsive npo pt Dextrose 50 ml 04/18/25 22:19 Dextrose 50%-Water Inj 50 Ml Syringe IV 05/18/25 22:18 Q15MIN PRN BG <50 OR BG <70 & pt unresponsive Diazepam 5 mg 04/18/25 22:26 04/23/25 00:25 Diazepam 5 Mg Tablet PO 04/24/25 08:59 5 mg BID PRN Administration MUSCLE SPASMS Diltiazem HCl 180 mg 04/20/25 09:00 04/23/25 08:48 Diltiazem Cd 180 Mg Capcr PO 05/20/25 08:59 180 mg QDAY KIP Administration Furosemide 40 mg 04/23/25 09:00 04/24/25 05:25 Furosemide Inj 10 Mg/Ml 4ml Vial IVP 05/23/25 08:59 40 mg BIDD KIP Administration Glucagon 1 mg 04/18/25 22:19 Glucagon Inj 1 Mg Vial IM Q15MIN PRN BG <70, and no IV access Hydralazine HCl 100 mg 04/19/25 08:45 04/24/25 05:27 Hydralazine Hcl 25 Mg Tablet PO 05/19/25 08:44 100 mg TID KIP Administration Albumin Human 25 gm in 100 mls @ 100 mls/hr 04/23/25 08:54 04/23/25 10:25 Albuminar-25 Ivpb IV 04/26/25 08:53 100 mls/hr QDAY KIP Administration Insulin Glargine 45 unit 04/23/25 09:00 04/23/25 08:49 Insulin Glargine (Lantus) 5 Unit/0.05 Ml (Per 5 Units) SC 05/23/25 08:59 45 unit QDAY KIP Administration Insulin Human Lispro 0 unit 04/19/25 21:00 04/24/25 07:59 Insulin Lispro (Admelog) 1 Unit/0.01 Ml Unit SC 05/19/25 20:59 4 unit ACHS [facility] Administration Protocol Insulin Human Lispro 12 unit 04/22/25 11:30 04/22/25 17:04 Insulin Lispro (Admelog) 1 Unit/0.01 Ml Unit SC 05/22/25 11:29 Not Given ACHS [facility] Lactulose 10 gm 04/23/25 14:15 Lactulose Syrup 20 Gm/30 Ml Udc PO 05/23/25 14:14 X1 PRN CONSTIPATION Protocol Lidocaine 1 patch 04/22/25 16:48 04/24/25 04:34 Lidocaine 5% 1 Patch TOP 05/22/25 16:47 1 patch DAILY PRN Administration LOCALIZED PAIN Methylprednisolone Sodium Succinate 40 mg 04/24/25 09:00 Methylprednisolone Sod Succ 40 Mg Vial IVP 05/01/25 08:59 QDAY KIP Nicotine 21 mg 04/21/25 09:00 04/23/25 08:50 Nicotine Patch 21 Mg/24 Hr Patch.Td24 TOP 05/21/25 08:59 21 mg QDAY KIP Administration Nitroglycerin 0.4 mg 04/20/25 08:14 04/20/25 11:22 Nitroglycerin 0.4 Mg Subl Btl #25 SL 0.4 mg Q5MIN PRN Administration CHEST PAIN Ondansetron HCl 4 mg 04/18/25 22:13 04/22/25 01:40 Ondansetron Inj 2 Mg/Ml Inj 2 Ml IVP 05/18/25 22:12 4 mg Q6H PRN Administration NAUSEA OR VOMITING Protocol Pantoprazole Sodium 40 mg 04/24/25 09:00 Pantoprazole 40 Mg Tablet PO 05/24/25 08:59 QDAY KIP Protocol Fluticasone/Salmeterol 1 puff 04/19/25 07:00 04/24/25 07:14 Fluticasone/Salmeterol 250/50 14 Dose Inh INH 05/19/25 06:59 1 puff BIDRT KIP Administration Sennosides 1 tab 04/18/25 22:13 Senna Tablet PO 05/18/25 22:12 QDAY PRN constipation Protocol Sodium Chloride 3 ml 04/21/25 10:39 04/21/25 11:03 Sodium Chloride Rt Blanca 0.9% 3 Ml Nebu INH 05/21/25 10:38 3 ml PRN PRN Administration SOLN Spironolactone 50 mg 04/19/25 09:00 04/19/25 09:53 Spironolactone 25 Mg Tablet PO 05/19/25 08:59 50 mg QDAY KIP Administration Plan Christina Diaz is a 64-year-old F with a PMH of ESBL UTI, COPD on 2-3 L at home, atrial fibrillation on Eliquis, Takotsubo's cardiomyopathy, substance use disorder (heroin and methamphetamine), IDDM, HTN, viral meningitis, and stroke who was admitted for acute on chronic COPD exacerbation. #THEO on CKDIIIb #Hyperkalemia, resolved #Hyperphosphatemia, resolved Previously seen by nephrology team mid March for contrast induced THEO on CKD which resolved with fluids. Cr on admission 04/19 was 1.6 (estimated BL 1.2-1.4 on chart review), and had been steadily increasing, prompting nephrology consult. Ddx includes prerenal vs intrinsic. Prerenal THEO ddx: acute COPD exacerbation, continued use of substances, and/or dehydration, all resulting in decreased renal blood flow. Intrinsic THEO ddx: medication induced with frequent high dose steroids or antibiotics and/or substance use. No contrast studies performed. Ulytes consistent with prerenal THEO etiology. No signs of infection in UA (only 2+ blood with 86 RBC), UDS positive for benzos 04/23 CTAP shows large stool burden, no obstruction, large posterior L pelvic cyst 5.4 cm, and 12mm fat containing umbilical hernia. BUN decreasing and Cr improving on diuretics. Plan: -Recommend to continue IV Lasix 40 mg BID -Recommend to give albumin 25g BID 30 minutes before administration of Lasix for 3 days (04/23- ) -Renally dose medications -Avoid nephrotoxins #Acute Hypoxic Respiratory Failure secondary to #COPD Exacerbation #COPD #Chest pain #Leukocytosis #Lower Peripheral Edema #Atrial Fibrillation, rate controlled #History of Atrial Fibrillation with rvr #Hypertension #Chronic Hepatitis C #Type 2 Diabetes Mellitus, Insulin-Dependent #Hyperglycemia, likely secondary to steroids #Substance Use Disorder (Methamphetamine and Heroin) #Anxiety -Management per primary team Plan of care discussed with attending Dr. Samayoa. uRpali Giordano, PGY-1 Internal Medicine Attending Provider Attestation/Addendum Patient seen and examined with resident physician Dr. Giordano. Note reviewed, agree with findings and recommendations. Patient with a acute renal failure. Known to me from last admission with acute renal failure secondary to contrast nephropathy superimposed on CKD stage III. Currently with worsening azotemia. Suspect prerenal versus intrinsic renal failure. Urine lytes are consistent with prerenal azotemia. 04/24/2025 Patient today seems to have fluid overload. Good response with diuretics and albumin. Continues to have abdominal discomfort. CT abdomen showed no acute pathology. Lactulose was given. BUN and creatinine trending down. LFTs normal, albumin 3.4 CT abdomen/pelvis showed a large left pelvic cyst. Patient agreed to go to rehab.Pelvic ultrasound showed large left ovarian cyst 7.1 cm.
[2025-04-24] MEDS: INSULIN GLARGINE (Lantus) 5 UNIT/0.05 ML (PER 5 UNITS) 45 UNIT SC (09:22)
[2025-04-24] MEDS: ALBUMIN HUMAN 25% IVPB 25 GM/100 ML BTL IV (09:23)
[2025-04-24] MEDS: APIXABAN 2.5 MG TABLET 5 MG PO ×2 (09:23→21:07)
[2025-04-24] MEDS: NICOTINE PATCH 21 MG/24 HR PATCH.TD24 TOP (09:23)
[2025-04-24] MEDS: ASPIRIN EC 81 MG TABEC PO (09:24)
[2025-04-24] MEDS: DILTIAZEM CD 180 MG CAPCR PO (09:24)
[2025-04-24] MEDS: PANTOPRAZOLE 40 MG TABLET PO (09:24)
--- NOTE | 2025-04-24 09:45 | PD.RESPRO ---
Documentation for date of: 04/24/25 Plan to discharge patient within the next 24 hours. Patient may likely benefit from SNF given maximum assistanced need to ambulated. Continue steriods and breathing treatmetn. Patient complaining of diffuse abdominal tenderness. CT noted large amounts of stool, bowel regimen onboard and Lactulose added. US pelvis negative for any acute process. Likely discharge within the next 24 hours. Angelika Puga Subjective Subjective Interval history: Overnight events: No acute events overnight. Patient was seen and examined at bedside. AM vitals and labs reviewed. Patient reports slight worsening in breathing as compared to yesterday, but still better than how she was in the ED. Patient has not had any bowel movements, but patient also did not request the lactulose PRN placed yesterday, to which the patient was notified yesterday. Patient still reports pain in her abdomen, but pain seems to have moved to epigastric area. Patient had no tenderness to palpation in her right upper and lower quadrants as she did yesterday. Patient endorses 9 out of 10 back pain in her lower lumbar area. Patient was able to roll over to her side to expose her back, no wound or acute abnormality noted in region where the patient had her pain. No other complaints at this time. Review of systems otherwise negative except for what is mentioned above. Exam Vital Signs Temp Pulse Resp BP Pulse Ox O2 Del Method O2 Flow Rate 97.0 F 89 18 153/63 H 98 Nasal Cannula 2 04/24/25 08:00 04/24/25 09:24 04/24/25 08:00 04/24/25 09:24 04/24/25 08:00 04/24/25 08:00 04/24/25 08:00 Narrative Exam Physical Exam: General: Alert, distressed. Skin: Warm, dry, intact, no obvious rash. Head: Normocephalic, atraumatic. Eye: Normal conjunctiva, PERRL. Cardiovascular: Regular rate and rhythm, no murmur, +S1/S2. Respiratory: Respirations slightly labored on 2L NC. Diffuse wheezing heard throughout lung mehta equally. Gastrointestinal: Soft, distended. Tenderness to palpation of epigastric region. Rebound tenderness absent. Extremities: 1+ edema in BLE to knees, 2+ edema in right arm, no cyanosis, no clubbing. 2+ radial pulse bilaterally, 2+ pedal pulse bilaterally. Neuro: No focal deficits observed. Conversant, moving all extremities. No overt cerebellar signs/incoordination. Psychiatric: Cooperative, appropriate affect. Objective Labs 04/24/25 04:30 04/24/25 04:30 Labs: Laboratory Results - last 24 hr 04/24/25 04:30 WBC 19.4 H RBC 4.05 Hgb 10.1 L Hct 31.8 L MCV 79 L MCH 24.9 L MCHC 31.8 RDW Std Deviation 41.1 Plt Count 224 Neut % (Auto) 89 H Lymph % (Auto) 3 L Bandera % (Auto) 5 Eos % (Auto) 0 Baso % (Auto) 0 Neut # (Auto) 17.3 H Lymph # (Auto) 0.6 L Bandera # (Auto) 0.9 H Eos # (Auto) 0.0 Baso # (Auto) 0.0 Immature Gran # (Auto) 0.58 H Absolute Nucleated RBC 0.00 Immature Gran % 3 H Nucleated RBC % 0 Sodium 137 Potassium 4.6 Chloride 100 Carbon Dioxide 23.8 Anion Gap 13 BUN 87 H Creatinine 1.8 H Estim Creat Clear Calc 31.2 L eGFR 31 L BUN/Creatinine Ratio 48 H Glucose 327 H D Calculated Osmolality 313 H Calcium 8.5 Corrected Calcium 8.9 Phosphorus 4.1 Magnesium 2.2 Total Bilirubin 0.4 AST 20 ALT 18 Alkaline Phosphatase 54 Total Protein 5.6 L Albumin 3.5 Globulin 2.1 L Albumin/Globulin Ratio 1.7 ABG Interpretation ABG results: 04/18/25 20:40 VBG pH 7.47 VBG pCO2 36 VBG pO2 72 H VBG Base Excess 2 Quality Measures Quality Measures VTE prophylaxis Assessment & Plan Assessment Current Active Medications: Generic Name Dose Route Start Last Admin Trade Name Freq PRN Reason Stop Dose Admin Acetaminophen 650 mg 04/19/25 07:42 04/19/25 08:17 Acetaminophen 325 Mg Tablet PO 05/18/25 22:12 650 mg Q6H PRN Administration Mild Pain 1-3 or fever >100.1 Albuterol/Ipratropium 3 ml 04/22/25 11:00 04/24/25 07:14 Albuterol/Ipratropium (Duoneb) Rt Blanca 3 Ml Nebu INH 05/22/25 10:59 3 ml Q4HRRT KIP Administration Apixaban 5 mg 04/19/25 09:00 04/24/25 09:23 Apixaban 2.5 Mg Tablet PO 05/19/25 08:59 5 mg BID KIP Administration Aspirin 81 mg 04/19/25 09:00 04/24/25 09:24 Aspirin Ec 81 Mg Tabec PO 05/19/25 08:59 81 mg QDAY KIP Administration Buspirone HCl 5 mg 04/19/25 09:00 04/24/25 09:23 Buspirone Hcl 5 Mg Tablet PO 05/19/25 08:59 5 mg QDAY KIP Administration Methadone 100 Mg 0 ea 04/19/25 14:00 04/23/25 08:49 Cups PO 05/19/25 13:59 1 bottle DAILY KIP Administration Protocol Dextrose 25 ml 04/18/25 22:19 Dextrose 50%-Water Inj 50 Ml Syringe IV 05/18/25 22:18 Q15MIN PRN BG 50-70 responsive npo pt Dextrose 50 ml 04/18/25 22:19 Dextrose 50%-Water Inj 50 Ml Syringe IV 05/18/25 22:18 Q15MIN PRN BG <50 OR BG <70 & pt unresponsive Diltiazem HCl 180 mg 04/20/25 09:00 04/24/25 09:24 Diltiazem Cd 180 Mg Capcr PO 05/20/25 08:59 180 mg QDAY KIP Administration Furosemide 40 mg 04/23/25 09:00 04/24/25 05:25 Furosemide Inj 10 Mg/Ml 4ml Vial IVP 05/23/25 08:59 40 mg BIDD KIP Administration Glucagon 1 mg 04/18/25 22:19 Glucagon Inj 1 Mg Vial IM Q15MIN PRN BG <70, and no IV access Hydralazine HCl 100 mg 04/19/25 08:45 04/24/25 05:27 Hydralazine Hcl 25 Mg Tablet PO 05/19/25 08:44 100 mg TID KIP Administration Albumin Human 25 gm in 100 mls @ 100 mls/hr 04/23/25 08:54 04/24/25 09:23 Albuminar-25 Ivpb IV 04/26/25 08:53 100 mls/hr QDAY KIP Administration Insulin Glargine 45 unit 04/23/25 09:00 04/24/25 09:22 Insulin Glargine (Lantus) 5 Unit/0.05 Ml (Per 5 Units) SC 05/23/25 08:59 45 unit QDAY KIP Administration Insulin Human Lispro 0 unit 04/19/25 21:00 04/24/25 07:59 Insulin Lispro (Admelog) 1 Unit/0.01 Ml Unit SC 05/19/25 20:59 4 unit ACHS KIP Administration Protocol Insulin Human Lispro 5 unit 04/24/25 11:30 Insulin Lispro (Admelog) 1 Unit/0.01 Ml Unit SC 05/24/25 11:29 ACHS KIP Lactulose 10 gm 04/23/25 14:15 Lactulose Syrup 20 Gm/30 Ml Udc PO 05/23/25 14:14 X1 PRN CONSTIPATION Protocol Lidocaine 1 patch 04/22/25 16:48 04/24/25 04:34 Lidocaine 5% 1 Patch TOP 05/22/25 16:47 1 patch DAILY PRN Administration LOCALIZED PAIN Methylprednisolone Sodium Succinate 40 mg 04/24/25 09:00 04/24/25 09:25 Methylprednisolone Sod Succ 40 Mg Vial IVP 05/01/25 08:59 40 mg QDAY KIP Administration Nicotine 21 mg 04/21/25 09:00 04/24/25 09:23 Nicotine Patch 21 Mg/24 Hr Patch.Td24 TOP 05/21/25 08:59 21 mg QDAY KIP Administration Nitroglycerin 0.4 mg 04/20/25 08:14 04/20/25 11:22 Nitroglycerin 0.4 Mg Subl Btl #25 SL 0.4 mg Q5MIN PRN Administration CHEST PAIN Ondansetron HCl 4 mg 04/18/25 22:13 04/22/25 01:40 Ondansetron Inj 2 Mg/Ml Inj 2 Ml IVP 05/18/25 22:12 4 mg Q6H PRN Administration NAUSEA OR VOMITING Protocol Pantoprazole Sodium 40 mg 04/24/25 09:00 04/24/25 09:24 Pantoprazole 40 Mg Tablet PO 05/24/25 08:59 40 mg QDAY KIP Administration Protocol Fluticasone/Salmeterol 1 puff 04/19/25 07:00 04/24/25 07:14 Fluticasone/Salmeterol 250/50 14 Dose Inh INH 05/19/25 06:59 1 puff BIDRT KIP Administration Sennosides 1 tab 04/18/25 22:13 Senna Tablet PO 05/18/25 22:12 QDAY PRN constipation Protocol Sodium Chloride 3 ml 04/21/25 10:39 04/21/25 11:03 Sodium Chloride Rt Blanca 0.9% 3 Ml Nebu INH 05/21/25 10:38 3 ml PRN PRN Administration SOLN Spironolactone 50 mg 04/19/25 09:00 04/19/25 09:53 Spironolactone 25 Mg Tablet PO 05/19/25 08:59 50 mg QDAY KIP Administration Plan Mrs. Diaz is a 64 year old female with a history of COPD (2-3L home O2), A-fib on Eliquis, hypertension, CKD stage IIIb, T2DM, polysubstance use disorder, history of ESBL UTI, Takotsubo cardiomyopathy [diagnosed 2023] who came for worsening shortness of breath. Patient was admitted for management of acute hypoxic failure due to COPD. #Acute on chronic hypoxic failure due to #Acute on Chronic COPD exacerbation #COPD #Nicotine Use Disorder/Current Smoker Patient endorsed worsening of shortness of breath and chest pain that led to her seeking treatment in the ED on 04/18/2025. Patient has been using her Trelegy inhaler once a day and her albuterol inhaler 4 times a day after her recent discharge on 04/06. Home medications were providing minimal relief. Patient had a light yellow sputum production. Due to the patient's COPD exacerbation history, this is most likely another COPD exacerbation. Patient's acute episode of dyspnea meets criteria for COPD exacerbation. Chest x-ray 04/18 negative for acute findings, repeat chest x-ray 04/21 also negative for acute findings VBG 04/18 pH 7.47, PCO2 36, PO2 72, O2 sat 97% ? Maintain patient's oxygen saturation between 88% and 92% given history of COPD ? Continue DuoNeb 3 mL every 4 hours [employer] ? Continue methylprednisolone 60 mg IVP twice daily ? Continue fluticasone/salmeterol 1 puff twice daily RT ? Continue to monitor patient's oxygen status ? Recommend CT chest scan in 3 to 6 months to follow-up on CTA chest on 04/03 ? Coccidioides panel not ordered due to recent negative on 04/04/2025 ? Discontinued ceftriaxone due to low suspicion of PNA given negative chest x-ray findings x 2 #Leukocytosis Patient was producing light yellow sputum via cough and has a history of green mucus production. Patient is more susceptible to infection due to history of COPD and frequent steroid use. Viral respiratory panel negative 04/18, strep group A negative 04/18. WBC noted to be elevated throughout current admission, possibly due to increased steroid use to manage acute hypoxic failure due to COPD exacerbation. ? Patient completed azithromycin 500 mg 5 day course [04/19-04/23] ? Will continue to monitor with daily CBC #Constipation #Low lumbar back pain #Pancreatitis r/o Patient had abdominal pain 04/22 and 04/23. CT abdomen pelvis without contrast ordered due to concerns for possible acute process such as appendicitis. CT abdomen pelvis 04/23 negative for acute concerns or bowel obstructions, but large stool burden noted. Patient is on lactulose 10g as needed for constipation at home, potentially related to history of opioid use. Patient has low lumbar back pain that started 04/23. CT abdomen pelvis done on the same day that her low lumbar back pain started was negative for acute processes in her spine, with the only abnormality noted as advanced degenerative disc disease in L4-L5 and L5-S1. Will continue to monitor but low suspicion at this time for acute causes of pain in abdomen and back. ? Restarted home lactulose 10 g as needed ? Ordered lactulose 30 gm one-time dose on 04/24 ? Will order lipase to rule out possible pancreatitis ? Ordered lidocaine patch ? 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 Noncardiac etiology suspected. Troponins negative on 04/18 and 04/20. EKG 04/21 negative for acute ischemic changes. ? Will continue to anticipate improvement and worsening of chest pain depending on respiratory status, suspect that treatment of COPD will resolve chest pain ? Will continue patient's Eliquis ? Pain relief as indicated #Lower extremity edema (resolving) #History of Takatsubo cardiomyopathy [2023] #Right upper extremity edema #Right upper extremity thrombophlebitis r/o Patient presented with lower peripheral edema, had BNP of 116 on 04/18, and was given IV Lasix 40 mg one-time dose on 04/18. TTE showed normal left ventricular size and function with EF 60%, no wall motion abnormalities noted. Patient noted to have right upper extremity edema on 04/24. Given patient's history of peripheral IV on right arm lack of pain and erythema, and Eliquis use, there is low suspicion for thrombophlebitis. ? Will continue to monitor fluid status ? Received 1L NS on 04/22 per Nephrology recommendations ? Started patient on Lasix 40 mg IV twice daily with albumin 25 mg/kg twice daily schedule 30 minutes before Lasix per recommendations by Nephrology ? Ordered right upper extremity ultrasound to rule out right upper extremity thrombophlebitis #Atrial fibrilation with rate control #History of A-fib with RVR Patient has a history of atrial fibrillation with RVR. EKG 04/21 shows sinus rhythm. ? Continue diltiazem 180 mg daily ? Continue Eliquis 5 mg p.o. twice daily ? Continue aspirin 81 mg daily ? Continue to hold home metoprolol #Hypertension Patient has a history of hypertension on spironolactone, metazalone, lisinopril, and hydralazine at home. Patient presented to ED with BP of 137/82. ? Continue hydralazine 100 mg p.o. 3 times daily ? Continue spironolactone 50 mg p.o. daily ? Continue diltiazem 180 mg p.o. daily #Type 2 diabetes mellitus, dependent on insulin #Hyperglycemia, likely due to steroid use ? Will continue to monitor fasting glucose ? Continue intermediate sliding scale ? Continue glargine 45 units in the morning ? Discontinued insulin lispro 12 units 3 times daily (with meals) ? Ordered glargine 20 units to be given at night #THEO on CKD stage IIIb, improving #CKD Stage IIIb Patient has a history of CKD and has remained stable since her last admission on 04/04. ? Will continue to monitor with daily renal panel ? Received 1L NS on 04/22 per Nephrology recommendations #Chronic hepatitis C infection Patient tested positive for hepatitis C antibody on 04/21/2025 and 02/18/2024. ? Will continue to monitor with daily CMP #Polysubstance use disorder (methamephetamine and heroin) Patient has history of methamphetamine and heroin abuse. On methadone outpatient. ? Will continue methadone 100 mg p.o. daily #Anxiety Patient has history of anxiety. ? Will continue with patient's home BuSpar 5 mg p.o. daily and diazepam 5 mg p.o. twice daily as needed DVT Prophylaxis: Eliquis GI Prophylaxis: Pantoprazole Bowel: Senna Diet: Cardiac diet with consistent low carb Gama: N/A Lines: Peripheral IV Antibiotics: Azithromycin 500mg daily [day 5, start date 04/18] Code Status: FULL Reason for Hospitalization: Abdominal pain Other Barriers to Discharge: N/A Patient plan of care was discussed with the senior resident Dr. Lux (PGY-2) and attending physician Dr. Wilmer Duncan, PGY1 - The patient's plan was discussed with attending Dr. Wilmer Puga MD PGY2 Internal Medicine Attending Provider Attestation/Addendum I attest that I was physically present for the evaluation, physical examination, lab and imaging review of the patient with the residents. I discussed the case with the residents and agree with the findings and plans of care as documented above. Patient continues to complain of pain around her lower abdomen at bedside. Vitals are stable, lab results show increasing WBC, stable hemoglobin. Kidney function remained stable. Blood glucose was 259 this morning, we will adjust her insulin regimen. Patient had 2 bowel movements this morning, despite that continues to have abdominal pain. Also noted to have lower extremity swelling, we will obtain Doppler ultrasound. CT abdomen/pelvis done yesterday showed abundant stool throughout the colon, fat-containing umbilical hernia and left pelvic cyst. Given patient's ongoing abdominal pain, will obtain pelvic ultrasound to evaluate the cyst. We will continue with analgesic regimen, if pain is controlled and patient remains stable, we will plan for discharge in next 24 to 48 hours. Lul Guillen MD
[2025-04-24] MEDS: METHADONE 100 MG PO (09:51)
[2025-04-24] MEDS: LACTULOSE SYRUP 20 GM/30 ML UDC 30 GM PO (09:51)
--- NOTE | 2025-04-24 10:52 | XR_ITS ---
Examination: Duplex scan of the upper extremity, unilateral right Date and time of exam: April 24, 2025 1321 hours INDICATIONS: Bilateral swelling and pain beginning 3 days ago Technique: Duplex scan of the extremity veins using B-mode/grayscale imaging and Doppler spectral analysis and color flow Attention is directed to internal echogenicity, compression and augmentation involving these veins, color flow assessment, spectral analysis Findings: Major deep venous structures in the extremity demonstrate normal course and caliber. There is no evidence of deep vein thrombosis. Normal color flow and spectral analysis Impression: Negative for DVT..
[2025-04-24] MEDS: BACLOFEN 10 MG TABLET PO ×2 (12:22→21:07)
--- NOTE | 2025-04-24 13:36 | XR_ITS ---
Examination: Pelvic ultrasound, transabdominal, complete Technique: Transabdominal ultrasound of the pelvis performed using grayscale imaging Date and time of exam: April 24, 2025 1337 hours INDICATIONS: CT examination April 23, 2025 left pelvic cyst 5.4 cm, pelvic pain 2 days FINDINGS: Uterus 7.3 cm uterine fundal area of fibroid degeneration 2.9 x 2.1 x 3.1 cm Endometrial stripe 0.7 cm Right ovary obscured by bowel gas Left ovary 7.9 cm arterial flow, 7.1 x 5.8 x 5.4 cm ovarian cyst IMPRESSION: 2.9 x 2.1 x 3.1 cm area fundal fibroid degeneration Left ovarian simple cyst 7.1 x 5.8 x 5.4 cm
[2025-04-24 17:05] LABS: Lipase 48 U/L (12-53)
[2025-04-24] MEDS: INSULIN GLARGINE (Lantus) 5 UNIT/0.05 ML (PER 5 UNITS) 20 UNIT SC (21:07)
[2025-04-25] VITALS (20 sets, daily range): BP systolic 99–173; BP diastolic 49–74; PULSE 65–89; RESP 15–24; TEMP 36.1–36.4; O2SAT 92–100; BMI 26.5
[2025-04-25] MEDS: ALBUTEROL/IPRATROPIUM (Duoneb) RT SOL 3 ML NEBU INH ×6 (02:24→23:07)
[2025-04-25 05:29] LABS: Basophils # (Auto) 0.0 Thou/mm3 (0.0-0.2); Basophils % (Auto) 0 % (0-2.5); Eosinophils # (Auto) 0.0 Thou/mm3 (0.0-0.5); Eosinophils % (Auto) 0 % (0-10); Hematocrit 27.1 % (36.0-46.0); Hemoglobin 8.9 g/dL (12.0-16.0); Immature Granulocytes Auto 0.33 Thou/mm3 (0.00-0.00); Lymphocytes # (Auto) 0.7 Thou/mm3 (1.0-4.8); Lymphocytes % (Auto) 5 % (10-50); Mean Corpuscular HGB Conc 32.8 g/dl (31.0-37.0); Mean Corpuscular Hemoglobin 25.5 pg (25.0-35.0); Mean Corpuscular Volume 78 fL (80-100); Monocytes # (Auto) 1.3 Thou/mm3 (0.0-0.8); Monocytes % (Auto) 9 % (0-12); Neutrophils # (Auto) 12.3 Thou/mm3 (1.8-7.7); Neutrophils % (Auto) 84 % (37-80); Nucleated Red Blood Cell # 0.00 Thou/mm3 (0.00-0.00); Nucleated Red Blood Cell % 0 /100 WBC (0); Platelet Count 227 Thou/mm3 (140-440); RDW Standard Deviation 40.9 fL (36.4-46.3); Red Blood Count 3.49 Miln/mm3 (4.00-5.20); White Blood Count 14.7 Thou/mm3 (3.6-11.0)
[2025-04-25] MEDS: FUROSEMIDE INJ 10 MG/ML 4ML VIAL 40 MG IVP (05:34)
[2025-04-25 05:46] LABS: Alanine Aminotransferase 23 U/L (10-49); Albumin, Serum 3.3 gm/dL (3.4-4.8); Albumin/Globulin Ratio 1.7 (1.2-2.2); Alkaline Phosphatase 48 U/L (46-116); Anion Gap 11 (7-16); Aspartate Amino Transferase 25 U/L (0-34); BUN/Creatinine Ratio 53 Ratio (12-20); Bilirubin,Total 0.4 mg/dL (0.3-1.2); Blood Urea Nitrogen 90 mg/dL (9-23); Calcium 8.6 mg/dL (8.3-10.6); Calcium (Corrected) 9.2 mg/dL (8.5-10.1); Carbon Dioxide 26.4 mMol/L (20.0-31.0); Chloride 99 mMol/L (98-107); Creatinine (Component) 1.7 mg/dL (0.6-1.3); Estimated Creatinine Clearance 33.0 mL/min (>60); Globulin 2.0 gm/dL (2.3-3.5); Glucose 246 mg/dL (74-106); Osmolality,Calculated 307 (275-295); Potassium 5.0 mMol/L (3.4-5.1); Sodium 136 mMol/L (136-145); Total Protein 5.3 gm/dL (5.7-8.2); eGFR 33 See Note
[2025-04-25] MEDS: FLUTICASONE/SALMETEROL 250/50 14 DOSE INH 1 PUFF INH ×2 (07:04→19:35)
[2025-04-25] MEDS: ACETAMINOPHEN 325 MG TABLET 650 MG PO (07:38)
[2025-04-25] MEDS: INSULIN LISPRO (AdmeLOG) 1 UNIT/0.01 ML UNIT SC ×4 (07:39→21:35)
--- NOTE | 2025-04-25 08:44 | PC.PT ---
PT recommend the patient go to SNF for further physical therapy to improve their strength and functional activity tolerance. Patient demonstrates a decreased ability to perform her ADLs and is not at her baseline with ambulation or transfers currently. SW made aware.
--- NOTE | 2025-04-25 09:17 | ESPR_ITS ---
Documentation for date of: 04/25/25 Pending SNF placement despite, methadone treatment at 100 mg qday, possible acceptance. Bumex d/c and albumin d/c my nephrlology. I have discussed the case with supervising physician and corporate intern physician involved in the care of patient. I personally saw and examined patient and discussed the assessment and plan with the entire medical team, including attending. I agree with assessment and plan as documented below. Angelika Puga MD PGY-2 Internal Medicine Subjective Subjective Interval history: Overnight events: No acute events overnight. Patient was seen and examined at bedside. AM vitals and labs reviewed. No pain was reported overnight by nursing staff. On initial visit, the patient was in tears crying of pain. She reported pain in her right arm diffusely at an 8/10, the pain at a 7/10, but had significant improvement of her abdominal pain as compared to yesterday. However upon touching her abdomen in the epigastric area and lower midline abdomen area, the patient finally jerked her hand to pull my hand away. The patient stated that it was very tender, however there was no pain upon deep palpation on the left and right sides of her abdomen. The patient was then revisited later a few hours in the day. The patient appeared to be very, very sleepy. The patient complained of absolutely no pain. The patient denied back pain, abdominal pain, right arm pain. When these areas were palpated, including deep palpation of the abdomen, the patient had no reaction other than to fall back asleep. Nursing staff informed the medical team that patient may be receiving food from outside the hospital. Review of systems otherwise negative except for what is mentioned above. Exam Vital Signs Temp Pulse Resp BP Pulse Ox O2 Del Method O2 Flow Rate 97.6 F 84 18 116/49 L 93 L Nasal Cannula 1 04/25/25 12:04/25/25 12:04/25/25 12:04/25/25 12:04/25/25 12:04/25/25 12:04/25/25 12:00 Narrative Exam Physical Exam: General: Sleepy, no acute distress. Skin: Warm, dry, intact, no obvious rash. Head: Normocephalic, atraumatic. Cardiovascular: Regular rate and rhythm, no murmur, +S1/S2. Respiratory: Lungs are clear to auscultation, respirations unlabored, no crackles, no wheezing. Gastrointestinal: Soft, nontender, non-distended. No guarding or rebound tenderness. Extremities: Right arm 2+ edema, no cyanosis, no clubbing. 2+ radial pulse bilaterally, 2+ pedal pulse bilaterally. Neuro: No focal deficits observed. Conversant, moving all extremities. No overt cerebellar signs/incoordination. Psychiatric: Cooperative, appropriate affect. Objective Labs 04/25/25 04:30 04/25/25 04:30 Labs: Laboratory Results - last 24 hr 04/24/25 04/25/25 16:28 04:30 WBC 14.7 H RBC 3.49 L Hgb 8.9 L Hct 27.1 L MCV 78 L MCH 25.5 MCHC 32.8 RDW Std Deviation 40.9 Plt Count 227 Neut % (Auto) 84 H Lymph % (Auto) 5 L Carlton % (Auto) 9 Eos % (Auto) 0 Baso % (Auto) 0 Neut # (Auto) 12.3 H Lymph # (Auto) 0.7 L Carlton # (Auto) 1.3 H Eos # (Auto) 0.0 Baso # (Auto) 0.0 Immature Gran # (Auto) 0.33 H Absolute Nucleated RBC 0.00 Immature Gran % 2 H Nucleated RBC % 0 Sodium 136 Potassium 5.0 Chloride 99 Carbon Dioxide 26.4 Anion Gap 11 BUN 90 H Creatinine 1.7 H Estim Creat Clear Calc 33.0 L eGFR 33 L BUN/Creatinine Ratio 53 H Glucose 246 H D Calculated Osmolality 307 H Calcium 8.6 Corrected Calcium 9.2 Total Bilirubin 0.4 AST 25 ALT 23 Alkaline Phosphatase 48 Total Protein 5.3 L Albumin 3.3 L Globulin 2.0 L Albumin/Globulin Ratio 1.7 Lipase 48 ABG Interpretation ABG results: 04/18/25 20:40 VBG pH 7.47 VBG pCO2 36 VBG pO2 72 H VBG Base Excess 2 Quality Measures Quality Measures VTE prophylaxis Assessment & Plan Assessment Current Active Medications: Generic Name Dose Route Start Last Admin Trade Name Freq PRN Reason Stop Dose Admin Acetaminophen 650 mg 04/19/25 07:42 04/25/25 07:38 Acetaminophen 325 Mg Tablet PO 05/18/25 22:12 650 mg Q6H PRN Administration Mild Pain 1-3 or fever >100.1 Albuterol/Ipratropium 3 ml 04/22/25 11:00 04/25/25 10:36 Albuterol/Ipratropium (Duoneb) Rt Blanca 3 Ml Nebu INH 05/22/25 10:59 3 ml Q4HRRT KIP Administration Amlodipine Besylate 10 mg 04/25/25 09:00 04/25/25 09:55 Amlodipine Besylate 5 Mg Tablet PO 05/25/25 08:59 10 mg QDAY KIP Administration Apixaban 5 mg 04/19/25 09:00 04/25/25 09:55 Apixaban 2.5 Mg Tablet PO 05/19/25 08:59 5 mg BID KIP Administration Aspirin 81 mg 04/19/25 09:00 04/25/25 09:56 Aspirin Ec 81 Mg Tabec PO 05/19/25 08:59 81 mg QDAY KIP Administration Baclofen 10 mg 04/24/25 11:00 04/25/25 09:57 Baclofen 10 Mg Tablet PO 05/24/25 10:59 10 mg BID KIP Administration Buspirone HCl 5 mg 04/19/25 09:00 04/25/25 09:56 Buspirone Hcl 5 Mg Tablet PO 05/19/25 08:59 5 mg QDAY KIP Administration Clonidine 0.1 mg 04/25/25 09:00 04/25/25 09:57 Clonidine Hcl 0.1 Mg Tablet PO 05/25/25 08:59 0.1 mg BID KIP Administration Methadone 100 Mg 0 ea 04/19/25 14:00 04/24/25 09:51 Cups PO 05/19/25 13:59 1 bottle DAILY KIP Administration Protocol Dextrose 25 ml 04/18/25 22:19 Dextrose 50%-Water Inj 50 Ml Syringe IV 05/18/25 22:18 Q15MIN PRN BG 50-70 responsive npo pt Dextrose 50 ml 04/18/25 22:19 Dextrose 50%-Water Inj 50 Ml Syringe IV 05/18/25 22:18 Q15MIN PRN BG <50 OR BG <70 & pt unresponsive Diltiazem HCl 180 mg 04/20/25 09:00 04/25/25 09:57 Diltiazem Cd 180 Mg Capcr PO 05/20/25 08:59 180 mg QDAY KIP Administration Glucagon 1 mg 04/18/25 22:19 Glucagon Inj 1 Mg Vial IM Q15MIN PRN BG <70, and no IV access Hydralazine HCl 100 mg 04/19/25 08:45 04/25/25 05:34 Hydralazine Hcl 25 Mg Tablet PO 05/19/25 08:44 100 mg TID KIP Administration Albumin Human 25 gm in 100 mls @ 100 mls/hr 04/23/25 08:54 04/25/25 10:11 Albuminar-25 Ivpb IV 04/26/25 08:53 100 mls/hr QDAY KIP Administration Insulin Glargine 45 unit 04/23/25 09:00 04/25/25 09:58 Insulin Glargine (Lantus) 5 Unit/0.05 Ml (Per 5 Units) SC 05/23/25 08:59 45 unit QDAY KIP Administration Insulin Glargine 20 unit 04/24/25 21:00 04/24/25 21:07 Insulin Glargine (Lantus) 5 Unit/0.05 Ml (Per 5 Units) SC 05/24/25 20:59 20 unit HS KIP Administration Insulin Human Lispro 0 unit 04/19/25 21:00 04/25/25 12:02 Insulin Lispro (Admelog) 1 Unit/0.01 Ml Unit SC 05/19/25 20:59 5 unit ACHS KIP Administration Protocol Lactulose 10 gm 04/23/25 14:15 Lactulose Syrup 20 Gm/30 Ml Udc PO 05/23/25 14:14 X1 PRN CONSTIPATION Protocol Lidocaine 1 patch 04/22/25 16:48 04/24/25 04:34 Lidocaine 5% 1 Patch TOP 05/22/25 16:47 1 patch DAILY PRN Administration LOCALIZED PAIN Lisinopril 40 mg 04/25/25 09:00 04/25/25 09:56 Lisinopril 20 Mg Tablet PO 05/25/25 08:59 40 mg QDAY KIP Administration Methadone HCl 100 mg 04/25/25 09:00 04/25/25 09:57 Methadone Hcl 10 Mg Tablet PO 04/30/25 08:59 100 mg QDAY KIP Administration Methylprednisolone Sodium Succinate 40 mg 04/24/25 09:00 04/25/25 10:12 Methylprednisolone Sod Succ 40 Mg Vial IVP 05/01/25 08:59 40 mg QDAY KIP Administration Nicotine 21 mg 04/21/25 09:00 04/25/25 10:20 Nicotine Patch 21 Mg/24 Hr Patch.Td24 TOP 05/21/25 08:59 21 mg QDAY KIP Administration Nitroglycerin 0.4 mg 04/20/25 08:14 04/20/25 11:22 Nitroglycerin 0.4 Mg Subl Btl #25 SL 0.4 mg Q5MIN PRN Administration CHEST PAIN Ondansetron HCl 4 mg 04/18/25 22:13 04/22/25 01:40 Ondansetron Inj 2 Mg/Ml Inj 2 Ml IVP 05/18/25 22:12 4 mg Q6H PRN Administration NAUSEA OR VOMITING Protocol Pantoprazole Sodium 40 mg 04/24/25 09:00 04/25/25 09:55 Pantoprazole 40 Mg Tablet PO 05/24/25 08:59 40 mg QDAY KIP Administration Protocol Fluticasone/Salmeterol 1 puff 04/19/25 07:00 04/25/25 07:04 Fluticasone/Salmeterol 250/50 14 Dose Inh INH 05/19/25 06:59 1 puff BIDRT KIP Administration Sennosides 1 tab 04/18/25 22:13 Senna Tablet PO 05/18/25 22:12 QDAY PRN constipation Protocol Sodium Chloride 3 ml 04/21/25 10:39 04/21/25 11:03 Sodium Chloride Rt Blanca 0.9% 3 Ml Nebu INH 05/21/25 10:38 3 ml PRN PRN Administration SOLN Spironolactone 50 mg 04/19/25 09:00 04/19/25 09:53 Spironolactone 25 Mg Tablet PO 05/19/25 08:59 50 mg QDAY KIP Administration Plan Mrs. Diaz is a 64 year old female with a history of COPD (2-3L home O2), A-fib on Eliquis, hypertension, CKD stage IIIb, T2DM, polysubstance use disorder, history of ESBL UTI, Takotsubo cardiomyopathy [diagnosed 2023] who came for worsening shortness of breath. Patient was admitted for management of acute hypoxic failure due to COPD. #Acute on chronic hypoxic failure due to #Acute on Chronic COPD exacerbation #COPD #Nicotine Use Disorder/Current Smoker Patient endorsed worsening of shortness of breath and chest pain that led to her seeking treatment in the ED on 04/18/2025. Patient has been using her Trelegy inhaler once a day and her albuterol inhaler 4 times a day after her recent discharge on 04/06. Home medications were providing minimal relief. Patient had a light yellow sputum production. Due to the patient's COPD exacerbation history, this is most likely another COPD exacerbation. Patient's acute episode of dyspnea meets criteria for COPD exacerbation. Chest x-ray 04/18 negative for acute findings, repeat chest x-ray 04/21 also negative for acute findings VBG 04/18 pH 7.47, PCO2 36, PO2 72, O2 sat 97% ? Maintain patient's oxygen saturation between 88% and 92% given history of COPD ? Continue DuoNeb 3 mL every 4 hours [employer] ? Continue methylprednisolone 60 mg IVP twice daily ? Continue fluticasone/salmeterol 1 puff twice daily RT ? Continue to monitor patient's oxygen status ? Recommend CT chest scan in 3 to 6 months to follow-up on CTA chest on 04/03 ? Coccidioides panel not ordered due to recent negative on 04/04/2025 ? Discontinued ceftriaxone due to low suspicion of PNA given negative chest x- ray findings x 2 #Leukocytosis Patient was producing light yellow sputum via cough and has a history of green mucus production. Patient is more susceptible to infection due to history of COPD and frequent steroid use. Viral respiratory panel negative 04/18, strep group A negative 04/18. WBC noted to be elevated throughout current admission, possibly due to increased steroid use to manage acute hypoxic failure due to COPD exacerbation. ? Patient completed azithromycin 500 mg 5 day course [04/19-04/23] ? Will continue to monitor with daily CBC #Constipation #Low lumbar back pain #Abdominal pain #Pancreatitis r/o Patient had abdominal pain 04/22 and 04/23. CT abdomen pelvis without contrast ordered due to concerns for possible acute process such as appendicitis. CT abdomen pelvis 04/23 negative for acute concerns or bowel obstructions, but large stool burden noted. Patient is on lactulose 10g as needed for constipation at home, potentially related to history of opioid use. Patient has low lumbar back pain that started 04/23. CT abdomen pelvis done on the same day that her low lumbar back pain started was negative for acute processes in her spine, with the only abnormality noted as advanced degenerative disc disease in L4-L5 and L5-S1. Very low suspicion for acute causes of abdominal and back pain given highly inconsistent pattern of pain. Further imaging highly unlikely to change current management of care. ? Restarted home lactulose 10 g as needed ? Ordered lactulose 30 gm one-time dose on 04/24 ? Will order lipase to rule out possible pancreatitis ? Lipase 03/3148, within normal limits ? Ordered lidocaine patch ? 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 Noncardiac etiology suspected. Troponins negative on 04/18 and 04/20. EKG 04/21 negative for acute ischemic changes. ? Will continue to anticipate improvement and worsening of chest pain depending on respiratory status, suspect that treatment of COPD will resolve chest pain ? Will continue patient's Eliquis ? Pain relief as indicated #Lower extremity edema (resolving) #History of Takatsubo cardiomyopathy [2023] #Right upper extremity edema #Right upper extremity thrombophlebitis r/o Patient presented with lower peripheral edema, had BNP of 116 on 04/18, and was given IV Lasix 40 mg one-time dose on 04/18. TTE showed normal left ventricular size and function with EF 60%, no wall motion abnormalities noted. Patient noted to have right upper extremity edema on 04/24. Given patient's history of peripheral IV on right arm lack of pain and erythema, and Eliquis use, there is low suspicion for thrombophlebitis. ? Will continue to monitor fluid status ? Received 1L NS on 04/22 per Nephrology recommendations ? Started patient on Lasix 40 mg IV twice daily with albumin 25 mg/kg twice daily schedule 30 minutes before Lasix per recommendations by Nephrology ? Discontinued Lasix 40 mg IV 04/25 and ordered glycopyrrolate 2 mg one-time dose per nephrology recommendations ? Ordered right upper extremity ultrasound to rule out right upper extremity thrombophlebitis ? RUE ultrasound 04/24 negative for thrombus #Atrial fibrilation with rate control #History of A-fib with RVR Patient has a history of atrial fibrillation with RVR. EKG 04/21 shows sinus rhythm. ? Continue diltiazem 180 mg daily ? Continue Eliquis 5 mg p.o. twice daily ? Continue aspirin 81 mg daily ? Continue to hold home metoprolol #Hypertension Patient has a history of hypertension on spironolactone, metazalone, lisinopril, and hydralazine at home. Patient presented to ED with BP of 137/82. ? Continue hydralazine 100 mg p.o. 3 times daily ? Continue spironolactone 50 mg p.o. daily ? Continue diltiazem 180 mg p.o. daily ? Restarting home lisinopril 40 mg daily, restarting home clonidine 0.1 mg twice daily, and restarting home amlodipine 10 mg daily #Type 2 diabetes mellitus, dependent on insulin #Hyperglycemia, likely due to steroid use ? Will continue to monitor fasting glucose ? Continue intermediate sliding scale ? Continue glargine 45 units in the morning ? Discontinued insulin lispro 12 units 3 times daily (with meals) ? Ordered glargine 20 units to be given at night ? Educated the patient on not eating food from outside the hospital ? Obtain FreeStyle Dante for patient to more closely monitor blood glucose #THEO on CKD stage IIIb, improving #CKD Stage IIIb Patient has a history of CKD and has remained stable since her last admission on 04/04. ? Will continue to monitor with daily renal panel ? Received 1L NS on 04/22 per Nephrology recommendations #Chronic hepatitis C infection Patient tested positive for hepatitis C antibody on 04/21/2025 and 02/18/2024. ? Will continue to monitor with daily CMP #Polysubstance use disorder (methamephetamine and heroin) Patient has history of methamphetamine and heroin abuse. On methadone outpatient. ? Will continue methadone 100 mg p.o. daily #Anxiety Patient has history of anxiety. ? Will continue with patient's home BuSpar 5 mg p.o. daily and diazepam 5 mg p.o. twice daily as needed DVT Prophylaxis: Eliquis GI Prophylaxis: Pantoprazole Bowel: Senna Diet: Cardiac diet with consistent low carb Gama: N/A Lines: Peripheral IV Antibiotics: N/A Code Status: FULL Reason for Hospitalization: N/A Other Barriers to Discharge: SNF placement Patient plan of care was discussed with the senior resident Dr. Lux (PGY-2) and attending physician Dr. Wilmer Duncan, PGY1 Attending Provider Attestation/Addendum I attest that I was physically present for the evaluation, physical examination, lab and imaging review of the patient with the residents. I discussed the case with the residents and agree with the findings and plans of care as documented above. At bedside today, patient appears comfortable and denies any new complaints. Pelvic ultrasound completed yesterday showed 2.9 x 2.1 x 3.1 cm fundal fibroid degeneration and left ovarian simple cyst. Today, she denies any abdominal pain, or chronic pain and is stable on current analgesic regimen. Denies any tenderness on palpation. We will hold diuresis, patient currently does not appear volume overloaded. Vital signs are stable except for hypertension. Lab results show improving WBC count stable hemoglobin, stable kidney function. Awaiting placement to SNF for continuation of physical therapy. Lul Guillen MD
[2025-04-25] MEDS: APIXABAN 2.5 MG TABLET 5 MG PO ×2 (09:55→21:30)
[2025-04-25] MEDS: PANTOPRAZOLE 40 MG TABLET PO (09:55)
[2025-04-25] MEDS: ASPIRIN EC 81 MG TABEC PO (09:56)
[2025-04-25] MEDS: DILTIAZEM CD 180 MG CAPCR PO (09:57)
[2025-04-25] MEDS: BACLOFEN 10 MG TABLET PO ×2 (09:57→21:34)
[2025-04-25] MEDS: METHADONE HCL 10 MG TABLET 100 MG PO (09:57)
[2025-04-25] MEDS: INSULIN GLARGINE (Lantus) 5 UNIT/0.05 ML (PER 5 UNITS) 45 UNIT SC (09:58)
[2025-04-25] MEDS: ALBUMIN HUMAN 25% IVPB 25 GM/100 ML BTL IV (10:11)
--- NOTE | 2025-04-25 10:16 | PC.SS ---
Addendum entered by Lucero Pate 04/25/25 10:39: PASRR assessment has been initiated and ?Level II Mental Health Evaluation referral is required.? Original Note: SS has sent inquiry to SNF using [facility]. SS met with pt who states [facility] and her friend, [facility] (phone# [phone]) takes her 1 X week. SS attempted to contact [facility] 2X but was unsuccessful. Pt is agreeable to SNF if accepted. Per bedside nurse, Paige pt is on Buspirone for anxiety/depression.
[2025-04-25] MEDS: NICOTINE PATCH 21 MG/24 HR PATCH.TD24 TOP (10:20)
[2025-04-25] MEDS: GLYCOPYRROLATE 1 MG TABLET 2 MG PO (10:27)
--- NOTE | 2025-04-25 10:35 | ESPR_ITS ---
Documentation for date of: 04/25/25 Subjective Subjective Interval history: Ms. Diaz is a 63-year-old female with past medical history of COPD on 2 L home oxygen, A-fib, hypertension, CKD stage IIIb, [id number] type 2 diabetes, polysubstance use disorder presents to the ED on 04/18 with increased episodes of shortness of breath. Patient states that ever since being discharged on 04/06 for COPD exacerbation she was doing okay; however, tonight she started developing increased level of shortness of breath. Patient states that she tried using her home inhalers including albuterol but those did not help her symptoms. Patient denies having any sick contacts; however, she is reporting some sore throat which has worsened in the past several days. Patient otherwise denies any fever/chills or any other concerning cardiac symptoms at this time. Nephrology consulted for management of THEO. Home medications included amlodipine, aspirin, BuSpar, clonidine, Valium, Eliquis, Trelegy, Lasix, hydralazine, Basaglar, DuoNeb, lactulose, lisinopril, meclizine, methadone, metolazone, metoprolol, Aldactone 04/21/2025: Patient seen and examined at bedside while receiving Duoneb treatment. Complains of diffuse chest pain/tightness, nausea and epigastric pain. Previously seen by nephrology team mid March for contrast induced THEO which resolved with fluids. On current admission, baseline Cr on chart review 1.2-1.4 and on 04/20, creatinine was 1.8, increasing to 2.4 today. Most recent labs Na 130, K 5, Cl 95, BUN 102, Cr 2.3, glucose 444, phos 6.2. 04/22/2025: Patient seen and examined at bedside. Reports not feeling well, nauseous and slightly short of breath despite Duoneb treatments. Inquires to see her children. After fluids, labs all improving: Na 136, K 4.3, Cl 101, BUN 83, 2.0, glucose 365, phosphorus 5.2. 04/23/2025: Patient seen and examined at bedside. Patient complaints of worsening epigastric and abdominal pain with last BM being yesterday which was normal. Still reports some SOB. BUN markedly increased 83 to 104, Cr stable at 2.0. Recommend to start IV Lasix 40 BID with albumin 25g BID to give 30 minutes before Lasix administration. CT abd/pel ordered. 04/24/2025: Patient seen and examined at bedside. Reports intense, constant pain across lower back and at R abdomen. Breathing slightly improved. BUN decreased to 87, Cr improved at 1.8. Good urine output of 4.7L over last 24h. Recommend to continue IV lasix 40 mg BID with albumin 25 g BID for 3 days (04/23- ). 04/25/2025: Patient seen and examined at bedside. Abdominal pain and back pain are mild and better controlled. Much improved shortness of breath. BUN increased 90, and recommend to stop diuretics. Cr improved from 1.8 to 1.7. Exam Vital Signs Temp Pulse Resp BP Pulse Ox O2 Del Method O2 Flow Rate 97.4 F 80 17 173/74 H 98 Nasal Cannula 2 04/25/25 08:00 04/25/25 09:57 04/25/25 08:00 04/25/25 09:57 04/25/25 08:00 04/25/25 08:00 04/25/25 08:00 Narrative Exam GENERAL: AOx3, no acute distress HEENT: NC/AT, mucous membranes moist, bilateral sclera anicteric CARDIOVASCULAR: regular rate and rhythm, S1/S2 present, no murmurs appreciated PULMONARY: mild b/l rhonchi, mild b/l expiratory wheezes ABDOMINAL: soft, non-distended, no rebound/guarding, bowel sounds present, trace abdominal edema, mild tenderness to palpation RLQ EXTREMITIES: no lower leg edema, trace pitting edema at hips, RUE swelling SKIN: warm and dry, intact, no rashes NEURO: CN II-XII grossly intact, no focal deficits, alert, following commands Objective Labs 04/25/25 04:30 04/25/25 04:30 Labs: Laboratory Results - last 24 hr 04/24/25 04/25/25 16:28 04:30 WBC 14.7 H RBC 3.49 L Hgb 8.9 L Hct 27.1 L MCV 78 L MCH 25.5 MCHC 32.8 RDW Std Deviation 40.9 Plt Count 227 Neut % (Auto) 84 H Lymph % (Auto) 5 L [place] % (Auto) 9 Eos % (Auto) 0 Baso % (Auto) 0 Neut # (Auto) 12.3 H Lymph # (Auto) 0.7 L [place] # (Auto) 1.3 H Eos # (Auto) 0.0 Baso # (Auto) 0.0 Immature Gran # (Auto) 0.33 H Absolute Nucleated RBC 0.00 Immature Gran % 2 H Nucleated RBC % 0 Sodium 136 Potassium 5.0 Chloride 99 Carbon Dioxide 26.4 Anion Gap 11 BUN 90 H Creatinine 1.7 H Estim Creat Clear Calc 33.0 L eGFR 33 L BUN/Creatinine Ratio 53 H Glucose 246 H D Calculated Osmolality 307 H Calcium 8.6 Corrected Calcium 9.2 Total Bilirubin 0.4 AST 25 ALT 23 Alkaline Phosphatase 48 Total Protein 5.3 L Albumin 3.3 L Globulin 2.0 L Albumin/Globulin Ratio 1.7 Lipase 48 ABG Interpretation ABG results: 04/18/25 20:40 VBG pH 7.47 VBG pCO2 36 VBG pO2 72 H VBG Base Excess 2 Quality Measures Quality Measures VTE prophylaxis Assessment & Plan Assessment Current Active Medications: Generic Name Dose Route Start Last Admin Trade Name Freq PRN Reason Stop Dose Admin Acetaminophen 650 mg 04/19/25 07:42 04/25/25 07:38 Acetaminophen 325 Mg Tablet PO 05/18/25 22:12 650 mg Q6H PRN Administration Mild Pain 1-3 or fever >100.1 Albuterol/Ipratropium 3 ml 04/22/25 11:00 04/25/25 07:04 Albuterol/Ipratropium (Duoneb) Rt Blanca 3 Ml Nebu INH 05/22/25 10:59 3 ml Q4HRRT KIP Administration Amlodipine Besylate 10 mg 04/25/25 09:00 04/25/25 09:55 Amlodipine Besylate 5 Mg Tablet PO 05/25/25 08:59 10 mg QDAY KIP Administration Apixaban 5 mg 04/19/25 09:00 04/25/25 09:55 Apixaban 2.5 Mg Tablet PO 05/19/25 08:59 5 mg BID KIP Administration Aspirin 81 mg 04/19/25 09:00 04/25/25 09:56 Aspirin Ec 81 Mg Tabec PO 05/19/25 08:59 81 mg QDAY KIP Administration Baclofen 10 mg 04/24/25 11:00 04/25/25 09:57 Baclofen 10 Mg Tablet PO 05/24/25 10:59 10 mg BID KIP Administration Buspirone HCl 5 mg 04/19/25 09:00 04/25/25 09:56 Buspirone Hcl 5 Mg Tablet PO 05/19/25 08:59 5 mg QDAY KIP Administration Clonidine 0.1 mg 04/25/25 09:00 04/25/25 09:57 Clonidine Hcl 0.1 Mg Tablet PO 05/25/25 08:59 0.1 mg BID KIP Administration Methadone 100 Mg 0 ea 04/19/25 14:00 04/24/25 09:51 Cups PO 05/19/25 13:59 1 bottle DAILY KIP Administration Protocol Dextrose 25 ml 04/18/25 22:19 Dextrose 50%-Water Inj 50 Ml Syringe IV 05/18/25 22:18 Q15MIN PRN BG 50-70 responsive npo pt Dextrose 50 ml 04/18/25 22:19 Dextrose 50%-Water Inj 50 Ml Syringe IV 05/18/25 22:18 Q15MIN PRN BG <50 OR BG <70 & pt unresponsive Diltiazem HCl 180 mg 04/20/25 09:00 04/25/25 09:57 Diltiazem Cd 180 Mg Capcr PO 05/20/25 08:59 180 mg QDAY KIP Administration Glucagon 1 mg 04/18/25 22:19 Glucagon Inj 1 Mg Vial IM Q15MIN PRN BG <70, and no IV access Hydralazine HCl 100 mg 04/19/25 08:45 04/25/25 05:34 Hydralazine Hcl 25 Mg Tablet PO 05/19/25 08:44 100 mg TID KIP Administration Albumin Human 25 gm in 100 mls @ 100 mls/hr 04/23/25 08:54 04/25/25 10:11 Albuminar-25 Ivpb IV 04/26/25 08:53 100 mls/hr QDAY KIP Administration Insulin Glargine 45 unit 04/23/25 09:00 04/25/25 09:58 Insulin Glargine (Lantus) 5 Unit/0.05 Ml (Per 5 Units) SC 05/23/25 08:59 45 unit QDAY KIP Administration Insulin Glargine 20 unit 04/24/25 21:00 04/24/25 21:07 Insulin Glargine (Lantus) 5 Unit/0.05 Ml (Per 5 Units) SC 05/24/25 20:59 20 unit HS KIP Administration Insulin Human Lispro 0 unit 04/19/25 21:00 04/25/25 07:39 Insulin Lispro (Admelog) 1 Unit/0.01 Ml Unit SC 05/19/25 20:59 2 unit ACHS KIP Administration Protocol Lactulose 10 gm 04/23/25 14:15 Lactulose Syrup 20 Gm/30 Ml Udc PO 05/23/25 14:14 X1 PRN CONSTIPATION Protocol Lidocaine 1 patch 04/22/25 16:48 04/24/25 04:34 Lidocaine 5% 1 Patch TOP 05/22/25 16:47 1 patch DAILY PRN Administration LOCALIZED PAIN Lisinopril 40 mg 04/25/25 09:00 04/25/25 09:56 Lisinopril 20 Mg Tablet PO 05/25/25 08:59 40 mg QDAY KIP Administration Methadone HCl 100 mg 04/25/25 09:00 04/25/25 09:57 Methadone Hcl 10 Mg Tablet PO 04/30/25 08:59 100 mg QDAY KIP Administration Methylprednisolone Sodium Succinate 40 mg 04/24/25 09:00 04/25/25 10:12 Methylprednisolone Sod Succ 40 Mg Vial IVP 05/01/25 08:59 40 mg QDAY KIP Administration Nicotine 21 mg 04/21/25 09:00 04/25/25 10:20 Nicotine Patch 21 Mg/24 Hr Patch.Td24 TOP 05/21/25 08:59 21 mg QDAY KIP Administration Nitroglycerin 0.4 mg 04/20/25 08:14 04/20/25 11:22 Nitroglycerin 0.4 Mg Subl Btl #25 SL 0.4 mg Q5MIN PRN Administration CHEST PAIN Ondansetron HCl 4 mg 04/18/25 22:13 04/22/25 01:40 Ondansetron Inj 2 Mg/Ml Inj 2 Ml IVP 05/18/25 22:12 4 mg Q6H PRN Administration NAUSEA OR VOMITING Protocol Pantoprazole Sodium 40 mg 04/24/25 09:00 04/25/25 09:55 Pantoprazole 40 Mg Tablet PO 05/24/25 08:59 40 mg QDAY KIP Administration Protocol Fluticasone/Salmeterol 1 puff 04/19/25 07:00 04/25/25 07:04 Fluticasone/Salmeterol 250/50 14 Dose Inh INH 05/19/25 06:59 1 puff BIDRT KIP Administration Sennosides 1 tab 04/18/25 22:13 Senna Tablet PO 05/18/25 22:12 QDAY PRN constipation Protocol Sodium Chloride 3 ml 04/21/25 10:39 04/21/25 11:03 Sodium Chloride Rt Blanca 0.9% 3 Ml Nebu INH 05/21/25 10:38 3 ml PRN PRN Administration SOLN Spironolactone 50 mg 04/19/25 09:00 04/19/25 09:53 Spironolactone 25 Mg Tablet PO 05/19/25 08:59 50 mg QDAY KIP Administration Plan Christina Diaz is a 64-year-old F with a PMH of ESBL UTI, COPD on 2-3 L at home, atrial fibrillation on Eliquis, Takotsubo's cardiomyopathy, substance use disorder (heroin and methamphetamine), IDDM, HTN, viral meningitis, and stroke who was admitted for acute on chronic COPD exacerbation. #THEO on CKDIIIb #Hyperkalemia, resolved #Hyperphosphatemia, resolved Previously seen by nephrology team mid March for contrast induced THEO on CKD which resolved with fluids. Cr on admission 04/19 was 1.6 (estimated BL 1.2-1.4 on chart review), and had been steadily increasing, prompting nephrology consult. Ddx includes prerenal vs intrinsic. Prerenal THEO ddx: acute COPD exacerbation, continued use of substances, and/or dehydration, all resulting in decreased renal blood flow. Intrinsic THEO ddx: medication induced with frequent high dose steroids or antibiotics and/or substance use. No contrast studies performed. Ulytes consistent with prerenal THEO etiology. No signs of infection in UA (only 2+ blood with 86 RBC), UDS positive for benzos 04/23 CTAP shows large stool burden, no obstruction, large posterior L pelvic cyst 5.4 cm, and 12mm fat containing umbilical hernia. Pelvic US showed 2.9x2.1x3.1cm area of fundal fibroid degeneration and left ovarian simple cyst 7.1x5.8x5.4cm BUN initially decreased and Cr improved on diuretics, now BUN increased to 90 and Cr improved to 1.7. Plan: -Recommend to stop IV Lasix 40 mg BID -Renally dose medications -Avoid nephrotoxins #Acute Hypoxic Respiratory Failure secondary to #COPD Exacerbation #COPD #Chest pain #Leukocytosis #Lower Peripheral Edema #Atrial Fibrillation, rate controlled #History of Atrial Fibrillation with rvr #Hypertension #Chronic Hepatitis C #Type 2 Diabetes Mellitus, Insulin-Dependent #Hyperglycemia, likely secondary to steroids #Substance Use Disorder (Methamphetamine and Heroin) #Anxiety -Management per primary team Plan of care discussed with attending Dr. Samayoa. Rupali Giordano, PGY-1 Internal Medicine Attending Provider Attestation/Addendum Patient seen and examined with resident physician Dr. Giordano. Note reviewed, agree with findings and recommendations. Patient with a acute renal failure. Known to me from last admission with acute renal failure secondary to contrast nephropathy superimposed on CKD stage III. Currently with worsening azotemia. Suspect prerenal versus intrinsic renal failure. Urine lytes are consistent with prerenal azotemia. 04/25/2025 patient currently seen in telemetry. He was to be emotional. Clinically looks euvolemic. BUN continues to be high. Will hold of diuretics. Edema in the legs markedly improved. Continues to have abdominal discomfort. CT abdomen showed no acute pathology. Lactulose was given. BUN and creatinine trending down. LFTs normal, albumin 3.4 CT abdomen/pelvis showed a large left pelvic cyst. Patient agreed to go to rehab.Pelvic ultrasound showed large left ovarian cyst 7.1 cm. Ambulate with PT.
--- NOTE | 2025-04-25 10:49 | PC.SS ---
Addendum entered by Lucero Pate 04/25/25 15:48: SS was informed by Ale at [facility] they will accept pt but requires [facility] to start insurance authorization. SS has contacted Josseline from [facility] who states she will close [facility] today. Addendum entered by Lucero Pate 04/25/25 15:18: SS met with pt, her dtr, Kylie, and her friend, [place] [phone] who state [facility] ([facility] Address: [address] [facility] phone# [phone]) and her friend [place] [phone] provides transportation every Tuesday for a weeks supply. SS has informed Ale from [facility]. Lucero Vilchis from [facility] did an onsite evaluation. SS was informed by Shannon from [facility] they are unable to accept pt. Addendum entered by Lucero Pate 04/25/25 14:37: SS has expanded search to 53 SNF for short term placement. Original Note: Pt has been accepted to [facility] but they do not have beds available until possibly Tuesday. Pt has been declined from 7 SNF. Pt has been to [facility] in the past.
[2025-04-25] MEDS: INSULIN HUM REGULAR 1 UNIT/0.01 ML (PER UNIT) 10 UNIT SC (12:23)
[2025-04-25] MEDS: INSULIN GLARGINE (Lantus) 5 UNIT/0.05 ML (PER 5 UNITS) 20 UNIT SC (21:34)
[2025-04-26] VITALS (19 sets, daily range): BP systolic 108–167; BP diastolic 52–72; PULSE 62–97; RESP 14–20; TEMP 35.9–36.6; O2SAT 92–100; BMI 26.5
[2025-04-26] MEDS: ALBUTEROL/IPRATROPIUM (Duoneb) RT SOL 3 ML NEBU INH ×6 (03:22→23:04)
[2025-04-26] MEDS: FLUTICASONE/SALMETEROL 250/50 14 DOSE INH 1 PUFF INH ×2 (06:59→18:23)
[2025-04-26] MEDS: INSULIN LISPRO (AdmeLOG) 1 UNIT/0.01 ML UNIT SC ×4 (07:37→20:49)
[2025-04-26 08:11] LABS: Basophils # (Auto) 0.0 Thou/mm3 (0.0-0.2); Basophils % (Auto) 0 % (0-2.5); Eosinophils # (Auto) 0.0 Thou/mm3 (0.0-0.5); Eosinophils % (Auto) 0 % (0-10); Hematocrit 27.5 % (36.0-46.0); Hemoglobin 9.0 g/dL (12.0-16.0); Immature Granulocytes Auto 0.31 Thou/mm3 (0.00-0.00); Lymphocytes # (Auto) 0.7 Thou/mm3 (1.0-4.8); Lymphocytes % (Auto) 3 % (10-50); Mean Corpuscular HGB Conc 32.7 g/dl (31.0-37.0); Mean Corpuscular Hemoglobin 25.4 pg (25.0-35.0); Mean Corpuscular Volume 78 fL (80-100); Monocytes # (Auto) 1.1 Thou/mm3 (0.0-0.8); Monocytes % (Auto) 5 % (0-12); Neutrophils # (Auto) 19.5 Thou/mm3 (1.8-7.7); Neutrophils % (Auto) 90 % (37-80); Nucleated Red Blood Cell # 0.00 Thou/mm3 (0.00-0.00); Nucleated Red Blood Cell % 0 /100 WBC (0); Platelet Count 200 Thou/mm3 (140-440); RDW Standard Deviation 40.7 fL (36.4-46.3); Red Blood Count 3.55 Miln/mm3 (4.00-5.20); White Blood Count 21.6 Thou/mm3 (3.6-11.0)
[2025-04-26 08:41] LABS: Alanine Aminotransferase 25 U/L (10-49); Albumin, Serum 3.6 gm/dL (3.4-4.8); Albumin/Globulin Ratio 1.9 (1.2-2.2); Alkaline Phosphatase 47 U/L (46-116); Anion Gap 11 (7-16); Aspartate Amino Transferase 23 U/L (0-34); BUN/Creatinine Ratio 54 Ratio (12-20); Bilirubin,Total 0.5 mg/dL (0.3-1.2); Blood Urea Nitrogen 107 mg/dL (9-23); Calcium 8.8 mg/dL (8.3-10.6); Calcium (Corrected) 9.1 mg/dL (8.5-10.1); Carbon Dioxide 26.9 mMol/L (20.0-31.0); Chloride 100 mMol/L (98-107); Creatinine (Component) 2.0 mg/dL (0.6-1.3); Estimated Creatinine Clearance 28.1 mL/min (>60); Globulin 1.9 gm/dL (2.3-3.5); Glucose 208 mg/dL (74-106); Magnesium 2.1 mg/dL (1.6-2.6); Osmolality,Calculated 315 (275-295); Phosphorous 3.9 mg/dL (2.4-5.1); Potassium 5.3 mMol/L (3.4-5.1); Sodium 138 mMol/L (136-145); Total Protein 5.5 gm/dL (5.7-8.2); eGFR 28 See Note
[2025-04-26] MEDS: METHADONE HCL 10 MG TABLET 100 MG PO (08:44)
[2025-04-26] MEDS: NICOTINE PATCH 21 MG/24 HR PATCH.TD24 TOP (08:44)
[2025-04-26] MEDS: PANTOPRAZOLE 40 MG TABLET PO (08:45)
[2025-04-26] MEDS: BACLOFEN 10 MG TABLET PO ×2 (08:46→20:49)
[2025-04-26] MEDS: ASPIRIN EC 81 MG TABEC PO (08:46)
[2025-04-26] MEDS: DILTIAZEM CD 180 MG CAPCR PO (08:46)
[2025-04-26] MEDS: INSULIN GLARGINE (Lantus) 5 UNIT/0.05 ML (PER 5 UNITS) 45 UNIT SC (08:47)
[2025-04-26] MEDS: APIXABAN 2.5 MG TABLET 5 MG PO (08:47)
--- NOTE | 2025-04-26 09:15 | PD.RESPRO ---
Documentation for date of: 04/26/25 Subjective Subjective Interval history: Ms. Diaz is a 63-year-old female with past medical history of COPD on 2 L home oxygen, A-fib, hypertension, CKD stage IIIb, [id number] type 2 diabetes, polysubstance use disorder presents to the ED on 04/18 with increased episodes of shortness of breath. Patient states that ever since being discharged on 04/06 for COPD exacerbation she was doing okay; however, tonight she started developing increased level of shortness of breath. Patient states that she tried using her home inhalers including albuterol but those did not help her symptoms. Patient denies having any sick contacts; however, she is reporting some sore throat which has worsened in the past several days. Patient otherwise denies any fever/chills or any other concerning cardiac symptoms at this time. Nephrology consulted for management of THEO. Home medications included amlodipine, aspirin, BuSpar, clonidine, Valium, Eliquis, Trelegy, Lasix, hydralazine, Basaglar, DuoNeb, lactulose, lisinopril, meclizine, methadone, metolazone, metoprolol, Aldactone 04/24/2025: Patient seen and examined at bedside. Reports intense, constant pain across lower back and at R abdomen. Breathing slightly improved. BUN decreased to 87, Cr improved at 1.8. Good urine output of 4.7L over last 24h. Recommend to continue IV lasix 40 mg BID with albumin 25 g BID for 3 days (04/23- ). 04/25/2025: Patient seen and examined at bedside. Abdominal pain and back pain are mild and better controlled. Much improved shortness of breath. BUN increased 90, and recommend to stop diuretics. Cr improved from 1.8 to 1.7. 04/26/2025: Patient seen and examined at bedside. pain is better controlled, and less shortness of breath. BUN 107, Cr 2.0. Urine output 2.1L. Plan for HD via perm cath on Tuesday04/29/25, CTM BUN, pt may require vas catheter over the weekend if continues to increase. Concern for somnolence on exam later today, query if somnolence is 2/2 high methadone and buspar doses that patient takes chronically. Exam Vital Signs Temp Pulse Resp BP Pulse Ox O2 Del Method O2 Flow Rate 97.9 F 65 19 162/59 H 99 Nasal Cannula 1 04/26/25 08:00 04/26/25 08:46 04/26/25 08:00 04/26/25 08:46 04/26/25 08:00 04/26/25 08:00 04/26/25 08:00 Narrative Exam GENERAL: AOx3, no acute distress Later on exam she is more somnolent, arousable to touch and voice. HEENT: NC/AT, mucous membranes moist, bilateral sclera anicteric CARDIOVASCULAR: regular rate and rhythm, S1/S2 present, no murmurs appreciated PULMONARY: mild b/l rhonchi, mild b/l expiratory wheezes ABDOMINAL: soft, non-distended, no rebound/guarding, bowel sounds present, trace abdominal edema, mild abdominal tenderness EXTREMITIES: no lower leg edema, trace pitting edema at hips, RUE edema and shoulder pain that limits range of motion. SKIN: warm and dry, intact, no rashes NEURO: no focal deficits, alert, following commands Objective Labs 04/26/25 07:45 04/26/25 07:45 Labs: Laboratory Results - last 24 hr 04/26/25 07:45 WBC 21.6 H D RBC 3.55 L Hgb 9.0 L Hct 27.5 L MCV 78 L MCH 25.4 MCHC 32.7 RDW Std Deviation 40.7 Plt Count 200 Neut % (Auto) 90 H Lymph % (Auto) 3 L Frontier % (Auto) 5 Eos % (Auto) 0 Baso % (Auto) 0 Neut # (Auto) 19.5 H Lymph # (Auto) 0.7 L Frontier # (Auto) 1.1 H Eos # (Auto) 0.0 Baso # (Auto) 0.0 Immature Gran # (Auto) 0.31 H Absolute Nucleated RBC 0.00 Immature Gran % 1 H Nucleated RBC % 0 Sodium 138 Potassium 5.3 H Chloride 100 Carbon Dioxide 26.9 Anion Gap 11 BUN 107 H* Creatinine 2.0 H Estim Creat Clear Calc 28.1 L eGFR 28 L BUN/Creatinine Ratio 54 H Glucose 208 H Calculated Osmolality 315 H Calcium 8.8 Corrected Calcium 9.1 Phosphorus 3.9 Magnesium 2.1 Total Bilirubin 0.5 AST 23 ALT 25 Alkaline Phosphatase 47 Total Protein 5.5 L Albumin 3.6 Globulin 1.9 L Albumin/Globulin Ratio 1.9 ABG Interpretation ABG results: 04/18/25 20:40 VBG pH 7.47 VBG pCO2 36 VBG pO2 72 H VBG Base Excess 2 Quality Measures Quality Measures VTE prophylaxis Assessment & Plan Assessment Current Active Medications: Generic Name Dose Route Start Last Admin Trade Name Haydenq PRN Reason Stop Dose Admin Acetaminophen 650 mg 04/19/25 07:42 04/25/25 07:38 Acetaminophen 325 Mg Tablet PO 05/18/25 22:12 650 mg Q6H PRN Administration Mild Pain 1-3 or fever >100.1 Albuterol/Ipratropium 3 ml 04/22/25 11:00 04/26/25 06:58 Albuterol/Ipratropium (Duoneb) Rt Blanca 3 Ml Nebu INH 05/22/25 10:59 3 ml Q4HRRT KIP Administration Amlodipine Besylate 10 mg 04/25/25 09:00 04/26/25 08:46 Amlodipine Besylate 5 Mg Tablet PO 05/25/25 08:59 10 mg QDAY KIP Administration Apixaban 5 mg 04/19/25 09:00 04/26/25 08:47 Apixaban 2.5 Mg Tablet PO 05/19/25 08:59 5 mg BID KIP Administration Aspirin 81 mg 04/19/25 09:00 04/26/25 08:46 Aspirin Ec 81 Mg Tabec PO 05/19/25 08:59 81 mg QDAY KIP Administration Baclofen 10 mg 04/24/25 11:00 04/26/25 08:46 Baclofen 10 Mg Tablet PO 05/24/25 10:59 10 mg BID KIP Administration Buspirone HCl 5 mg 04/19/25 09:00 04/26/25 08:45 Buspirone Hcl 5 Mg Tablet PO 05/19/25 08:59 5 mg QDAY KIP Administration Clonidine 0.1 mg 04/25/25 09:00 04/26/25 08:46 Clonidine Hcl 0.1 Mg Tablet PO 05/25/25 08:59 0.1 mg BID KIP Administration Methadone 100 Mg 0 ea 04/19/25 14:00 04/24/25 09:51 Cups PO 05/19/25 13:59 1 bottle DAILY KIP Administration Protocol Dextrose 25 ml 04/18/25 22:19 Dextrose 50%-Water Inj 50 Ml Syringe IV 05/18/25 22:18 Q15MIN PRN BG 50-70 responsive npo pt Dextrose 50 ml 04/18/25 22:19 Dextrose 50%-Water Inj 50 Ml Syringe IV 05/18/25 22:18 Q15MIN PRN BG <50 OR BG <70 & pt unresponsive Diltiazem HCl 180 mg 04/20/25 09:00 04/26/25 08:46 Diltiazem Cd 180 Mg Capcr PO 05/20/25 08:59 180 mg QDAY KIP Administration Glucagon 1 mg 04/18/25 22:19 Glucagon Inj 1 Mg Vial IM Q15MIN PRN BG <70, and no IV access Hydralazine HCl 100 mg 04/19/25 08:45 04/26/25 05:23 Hydralazine Hcl 25 Mg Tablet PO 05/19/25 08:44 100 mg TID KIP Administration Insulin Glargine 45 unit 04/23/25 09:00 04/26/25 08:47 Insulin Glargine (Lantus) 5 Unit/0.05 Ml (Per 5 Units) SC 05/23/25 08:59 45 unit QDAY KIP Administration Insulin Glargine 20 unit 04/24/25 21:00 04/25/25 21:34 Insulin Glargine (Lantus) 5 Unit/0.05 Ml (Per 5 Units) SC 05/24/25 20:59 20 unit HS KIP Administration Insulin Human Lispro 0 unit 04/19/25 21:00 04/26/25 07:37 Insulin Lispro (Admelog) 1 Unit/0.01 Ml Unit SC 05/19/25 20:59 2 unit ACHS KIP Administration Protocol Lactulose 10 gm 04/23/25 14:15 Lactulose Syrup 20 Gm/30 Ml Udc PO 05/23/25 14:14 X1 PRN CONSTIPATION Protocol Lidocaine 1 patch 04/22/25 16:48 04/24/25 04:34 Lidocaine 5% 1 Patch TOP 05/22/25 16:47 1 patch DAILY PRN Administration LOCALIZED PAIN Lisinopril 40 mg 04/25/25 09:00 04/26/25 08:45 Lisinopril 20 Mg Tablet PO 05/25/25 08:59 40 mg QDAY KIP Administration Methadone HCl 100 mg 04/25/25 09:00 04/26/25 08:44 Methadone Hcl 10 Mg Tablet PO 04/30/25 08:59 100 mg QDAY KIP Administration Methylprednisolone Sodium Succinate 40 mg 04/24/25 09:00 04/26/25 08:44 Methylprednisolone Sod Succ 40 Mg Vial IVP 05/01/25 08:59 40 mg QDAY KIP Administration Nicotine 21 mg 04/21/25 09:00 04/26/25 08:44 Nicotine Patch 21 Mg/24 Hr Patch.Td24 TOP 05/21/25 08:59 21 mg QDAY KIP Administration Nitroglycerin 0.4 mg 04/20/25 08:14 04/20/25 11:22 Nitroglycerin 0.4 Mg Subl Btl #25 SL 0.4 mg Q5MIN PRN Administration CHEST PAIN Ondansetron HCl 4 mg 04/18/25 22:13 04/22/25 01:40 Ondansetron Inj 2 Mg/Ml Inj 2 Ml IVP 05/18/25 22:12 4 mg Q6H PRN Administration NAUSEA OR VOMITING Protocol Pantoprazole Sodium 40 mg 04/24/25 09:00 04/26/25 08:45 Pantoprazole 40 Mg Tablet PO 05/24/25 08:59 40 mg QDAY KIP Administration Protocol Fluticasone/Salmeterol 1 puff 04/19/25 07:00 04/26/25 06:59 Fluticasone/Salmeterol 250/50 14 Dose Inh INH 05/19/25 06:59 1 puff BIDRT KIP Administration Sennosides 1 tab 04/18/25 22:13 Senna Tablet PO 05/18/25 22:12 QDAY PRN constipation Protocol Sodium Chloride 3 ml 04/21/25 10:39 04/21/25 11:03 Sodium Chloride Rt Blanca 0.9% 3 Ml Nebu INH 05/21/25 10:38 3 ml PRN PRN Administration SOLN Spironolactone 50 mg 04/19/25 09:00 04/19/25 09:53 Spironolactone 25 Mg Tablet PO 05/19/25 08:59 50 mg QDAY KIP Administration Plan Christina Diaz is a 64-year-old F with a PMH of ESBL UTI, COPD on 2-3 L at home, atrial fibrillation on Eliquis, Takotsubo's cardiomyopathy, substance use disorder (heroin and methamphetamine), IDDM, HTN, viral meningitis, and stroke who was admitted for acute on chronic COPD exacerbation. #THEO on CKDIIIb #Hyperkalemia, resolved #Hyperphosphatemia, resolved Previously seen by nephrology team mid March for contrast induced THEO on CKD which resolved with fluids. Cr on admission 04/19 was 1.6 (estimated BL 1.2-1.4 on chart review), and had been steadily increasing, prompting nephrology consult. Ddx includes prerenal vs intrinsic. Prerenal THEO ddx: acute COPD exacerbation, continued use of substances, and/or dehydration, all resulting in decreased renal blood flow. Intrinsic THEO ddx: medication induced with frequent high dose steroids or antibiotics and/or substance use. No contrast studies performed. Ulytes consistent with prerenal THEO etiology. No signs of infection in UA (only 2+ blood with 86 RBC), UDS positive for benzos 04/23 CTAP shows large stool burden, no obstruction, large posterior L pelvic cyst 5.4 cm, and 12mm fat containing umbilical hernia. Pelvic US showed 2.9x2.1x3.1cm area of fundal fibroid degeneration and left ovarian simple cyst 7.1x5.8x5.4cm BUN initially decreased and Cr improved on diuretics, now BUN increased to 90 and Cr improved to 1.7. 04/26 BUN increased to 107 from 90, Cr 2.0 from 1.7 will require HD. Plan: -Recommend to stop IV Lasix 40 mg BID -Renally dose medications -Avoid nephrotoxins -daily CMP -hold apixaban for HD permanent catheter -HD on Sunday 04/29 -reccomend considering decreasing buspar and methadone doses given somnolence on exam #Acute Hypoxic Respiratory Failure secondary to #COPD Exacerbation #COPD #Chest pain #Leukocytosis - uptrending #Lower Peripheral Edema #Atrial Fibrillation, rate controlled #History of Atrial Fibrillation with rvr #Hypertension #Chronic Hepatitis C #Type 2 Diabetes Mellitus, Insulin-Dependent #Hyperglycemia, likely secondary to steroids #Substance Use Disorder (Methamphetamine and Heroin) #Anxiety -Management per primary team Attending Provider Attestation/Addendum Patient seen and examined with resident physician Dr. Paniagua. Note reviewed, agree with findings and recommendations. Patient with a acute renal failure. Known to me from last admission with acute renal failure secondary to contrast nephropathy superimposed on CKD stage III. Currently with worsening azotemia. Suspect prerenal versus intrinsic renal failure. Urine lytes are consistent with prerenal azotemia. 04/26/2025 patient currently seen in telemetry. This morning she was acceptable however afternoon she was very somnolent. Not quite sure if it is related to methadone and BuSpar. Will adjust the dosage in the setting of THEO. BUN and creatinine continues to be significantly elevated. Cannot give fluids as patient clinically looks rather hypervolemic. Hold off on diuretics and fluids at this point. Patient seems to be in cardiorenal syndrome. Long conversation with the patient regarding renal replacement therapy and she agreed for dialysis. Will hold anticoagulation over the weekend and plan for permanent dialysis catheter and outpatient dialysis on Tuesday. Spoke to primary team. Still with mild abdominal discomfort. CT abdomen showed no acute pathology. Lactulose was given. BUN and creatinine trending down. LFTs normal, albumin 3.4 CT abdomen/pelvis showed a large left pelvic cyst. Patient agreed to go to rehab.Pelvic ultrasound showed large left ovarian cyst 7.1 cm. Ambulate with PT. patient needs to be sitting in the chair for outpatient dialysis.
--- NOTE | 2025-04-26 09:25 | PC.SS ---
SS has sent PASRR assessment to [facility] through file exchange and faxed and sent on [facility].
--- NOTE | 2025-04-26 11:06 | ESPR_ITS ---
Documentation for date of: 04/26/25 Subjective Subjective Interval history: No acute overnight events reported ,patient is seen and examined at bedside. Patient appears to be somnolent and minimally responding to questions. Patient does complain of diffuse pain all over her body. Vitals are stable labs are reviewed. Potassium is 5.3, BUN 107, creatinine 2.0, GFR 28, glucose 208. Per nephrology team due to patient's worsening kidney function with increased BUN it is advised to hold her a permanent dialysis catheter on Tuesday as patient will need permanent dialysis due to repeat hospital admissions with increased BUN. Due to increased somnolence and unarousable state, patient's methadone dose will decrease to 75 mg 3 times daily and will hold buspirone for now to see if patient's mentation improves. Patient also will need SNF authorization. Exam Vital Signs Temp Pulse Resp BP Pulse Ox O2 Del Method O2 Flow Rate 97.9 F 62 20 162/59 H 99 Nasal Cannula 0.5 04/26/25 08:00 04/26/25 10:42 04/26/25 10:42 04/26/25 08:46 04/26/25 10:42 04/26/25 08:00 04/26/25 10:42 Narrative Exam GENERAL: somnolent obese female, Not in acute distress NEURO: no focal neurological deficits HEENT: Atraumatic, Normocephalic. mucous membranes moist. Eyes open, symmetrical, & clear HEART: Normal Heart Sounds LUNGS: Clear to auscultation with no wheezing or crackles. ABDOMEN: soft, non-distended, non-tender, bowel sounds heard, no guarding or rebound tenderness SKIN: No Rash or ecchymoses EXTREMITIES: No edema, tenderness, able to move all 4 extremities, pedal pulses palpated Objective Labs 04/27/25 05:33 04/27/25 05:33 Labs: Laboratory Results - last 24 hr 04/26/25 07:45 WBC 21.6 H D RBC 3.55 L Hgb 9.0 L Hct 27.5 L MCV 78 L MCH 25.4 MCHC 32.7 RDW Std Deviation 40.7 Plt Count 200 Neut % (Auto) 90 H Lymph % (Auto) 3 L [place] % (Auto) 5 Eos % (Auto) 0 Baso % (Auto) 0 Neut # (Auto) 19.5 H Lymph # (Auto) 0.7 L [place] # (Auto) 1.1 H Eos # (Auto) 0.0 Baso # (Auto) 0.0 Immature Gran # (Auto) 0.31 H Absolute Nucleated RBC 0.00 Immature Gran % 1 H Nucleated RBC % 0 Sodium 138 Potassium 5.3 H Chloride 100 Carbon Dioxide 26.9 Anion Gap 11 BUN 107 H* Creatinine 2.0 H Estim Creat Clear Calc 28.1 L eGFR 28 L BUN/Creatinine Ratio 54 H Glucose 208 H Calculated Osmolality 315 H Calcium 8.8 Corrected Calcium 9.1 Phosphorus 3.9 Magnesium 2.1 Total Bilirubin 0.5 AST 23 ALT 25 Alkaline Phosphatase 47 Total Protein 5.5 L Albumin 3.6 Globulin 1.9 L Albumin/Globulin Ratio 1.9 ABG Interpretation ABG results: 04/18/25 20:40 VBG pH 7.47 VBG pCO2 36 VBG pO2 72 H VBG Base Excess 2 Quality Measures Quality Measures VTE prophylaxis Assessment & Plan Assessment Current Active Medications: Generic Name Dose Route Start Last Admin Trade Name Freq PRN Reason Stop Dose Admin Acetaminophen 650 mg 04/19/25 07:42 04/25/25 07:38 Acetaminophen 325 Mg Tablet PO 05/18/25 22:12 650 mg Q6H PRN Administration Mild Pain 1-3 or fever >100.1 Albuterol/Ipratropium 3 ml 04/22/25 11:00 04/26/25 10:40 Albuterol/Ipratropium (Duoneb) Rt Blanca 3 Ml Nebu INH 05/22/25 10:59 3 ml Q4HRRT KIP Administration Amlodipine Besylate 10 mg 04/25/25 09:00 04/26/25 08:46 Amlodipine Besylate 5 Mg Tablet PO 05/25/25 08:59 10 mg QDAY KIP Administration Apixaban 5 mg 04/19/25 09:00 04/26/25 08:47 Apixaban 2.5 Mg Tablet PO 05/19/25 08:59 5 mg BID KIP Administration Aspirin 81 mg 04/19/25 09:00 04/26/25 08:46 Aspirin Ec 81 Mg Tabec PO 05/19/25 08:59 81 mg QDAY KIP Administration Baclofen 10 mg 04/24/25 11:00 04/26/25 08:46 Baclofen 10 Mg Tablet PO 05/24/25 10:59 10 mg BID KIP Administration Buspirone HCl 5 mg 04/19/25 09:00 04/26/25 08:45 Buspirone Hcl 5 Mg Tablet PO 05/19/25 08:59 5 mg QDAY KIP Administration Clonidine 0.1 mg 04/25/25 09:00 04/26/25 08:46 Clonidine Hcl 0.1 Mg Tablet PO 05/25/25 08:59 0.1 mg BID KIP Administration Methadone 100 Mg 0 ea 04/19/25 14:00 04/24/25 09:51 Cups PO 05/19/25 13:59 1 bottle DAILY KIP Administration Protocol Dextrose 25 ml 04/18/25 22:19 Dextrose 50%-Water Inj 50 Ml Syringe IV 05/18/25 22:18 Q15MIN PRN BG 50-70 responsive npo pt Dextrose 50 ml 04/18/25 22:19 Dextrose 50%-Water Inj 50 Ml Syringe IV 05/18/25 22:18 Q15MIN PRN BG <50 OR BG <70 & pt unresponsive Diltiazem HCl 180 mg 04/20/25 09:00 04/26/25 08:46 Diltiazem Cd 180 Mg Capcr PO 05/20/25 08:59 180 mg QDAY KIP Administration Glucagon 1 mg 04/18/25 22:19 Glucagon Inj 1 Mg Vial IM Q15MIN PRN BG <70, and no IV access Hydralazine HCl 100 mg 04/19/25 08:45 04/26/25 05:23 Hydralazine Hcl 25 Mg Tablet PO 05/19/25 08:44 100 mg TID KIP Administration Insulin Glargine 45 unit 04/23/25 09:00 04/26/25 08:47 Insulin Glargine (Lantus) 5 Unit/0.05 Ml (Per 5 Units) SC 05/23/25 08:59 45 unit QDAY KIP Administration Insulin Glargine 20 unit 04/24/25 21:00 04/25/25 21:34 Insulin Glargine (Lantus) 5 Unit/0.05 Ml (Per 5 Units) SC 05/24/25 20:59 20 unit HS KIP Administration Insulin Human Lispro 0 unit 04/19/25 21:00 04/26/25 07:37 Insulin Lispro (Admelog) 1 Unit/0.01 Ml Unit SC 05/19/25 20:59 2 unit ACHS KIP Administration Protocol Lactulose 10 gm 04/23/25 14:15 Lactulose Syrup 20 Gm/30 Ml Udc PO 05/23/25 14:14 X1 PRN CONSTIPATION Protocol Lidocaine 1 patch 04/22/25 16:48 04/24/25 04:34 Lidocaine 5% 1 Patch TOP 05/22/25 16:47 1 patch DAILY PRN Administration LOCALIZED PAIN Lisinopril 40 mg 04/25/25 09:00 04/26/25 08:45 Lisinopril 20 Mg Tablet PO 05/25/25 08:59 40 mg QDAY KIP Administration Methadone HCl 100 mg 04/25/25 09:00 04/26/25 08:44 Methadone Hcl 10 Mg Tablet PO 04/30/25 08:59 100 mg QDAY KIP Administration Methylprednisolone Sodium Succinate 20 mg 04/27/25 09:00 Methylprednisolone Sod Succ 40 Mg Vial IVP 05/04/25 08:59 QDAY KIP Nicotine 21 mg 04/21/25 09:00 04/26/25 08:44 Nicotine Patch 21 Mg/24 Hr Patch.Td24 TOP 05/21/25 08:59 21 mg QDAY KIP Administration Nitroglycerin 0.4 mg 04/20/25 08:14 04/20/25 11:22 Nitroglycerin 0.4 Mg Subl Btl #25 SL 0.4 mg Q5MIN PRN Administration CHEST PAIN Ondansetron HCl 4 mg 04/18/25 22:13 04/22/25 01:40 Ondansetron Inj 2 Mg/Ml Inj 2 Ml IVP 05/18/25 22:12 4 mg Q6H PRN Administration NAUSEA OR VOMITING Protocol Pantoprazole Sodium 40 mg 04/24/25 09:00 04/26/25 08:45 Pantoprazole 40 Mg Tablet PO 05/24/25 08:59 40 mg QDAY KIP Administration Protocol Fluticasone/Salmeterol 1 puff 04/19/25 07:00 04/26/25 06:59 Fluticasone/Salmeterol 250/50 14 Dose Inh INH 05/19/25 06:59 1 puff BIDRT KIP Administration Sennosides 1 tab 04/18/25 22:13 Senna Tablet PO 05/18/25 22:12 QDAY PRN constipation Protocol Sodium Chloride 3 ml 04/21/25 10:39 04/21/25 11:03 Sodium Chloride Rt [place] 0.9% 3 Ml Nebu INH 05/21/25 10:38 3 ml PRN PRN Administration SOLN Spironolactone 50 mg 04/19/25 09:00 04/19/25 09:53 Spironolactone 25 Mg Tablet PO 05/19/25 08:59 50 mg QDAY KIP Administration Plan Mrs. Diaz is a 64 year old female with a history of COPD (2-3L home O2), A-fib on Eliquis, hypertension, CKD stage IIIb, T2DM, polysubstance use disorder, history of ESBL UTI, Takotsubo cardiomyopathy [diagnosed 2023] who came for worsening shortness of breath. Patient was admitted for management of acute hypoxic failure due to COPD. #THEO on CKD stage IIIb, #Uremia #CKD Stage IIIb Patient has a history of CKD with worsening kidney function with worsening mentation -Per nephrology due to repeatedly increase in BUN and worsening mentation (pt is extremely somnolent and barely arousable to painful stimuli), will plan for dialysis on tuesday (04/29), will order permanent dialysis cath for tuesday and hold home aspirin and eliquis. #Acute on chronic hypoxic failure due to #Acute on Chronic COPD exacerbation #COPD #Nicotine Use Disorder/Current Smoker Patient endorsed worsening of shortness of breath and chest pain that led to her seeking treatment in the ED on 04/18/2025. Patient has been using her Trelegy inhaler once a day and her albuterol inhaler 4 times a day after her recent discharge on 04/06. Home medications were providing minimal relief. Patient had a light yellow sputum production. Due to the patient's COPD exacerbation history, this is most likely another COPD exacerbation. Patient's acute episode of dyspnea meets criteria for COPD exacerbation. Chest x-ray 04/18 negative for acute findings, repeat chest x-ray 04/21 also negative for acute findings VBG 04/18 pH 7.47, PCO2 36, PO2 72, O2 sat 97% ? Maintain patient's oxygen saturation between 88% and 92% given history of COPD ? 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 Continue methylprednisolone 20 mg IVP Qday ? Continue fluticasone/salmeterol 1 puff twice daily RT ? Continue to monitor patient's oxygen status ? Recommend CT chest scan in 3 to 6 months to follow-up on CTA chest on 04/03 ? Coccidioides panel not ordered due to recent negative on 04/04/2025 ? Discontinued ceftriaxone due to low suspicion of PNA given negative chest x- ray findings x 2 #Leukocytosis Patient was producing light yellow sputum via cough and has a history of green mucus production. Patient is more susceptible to infection due to history of COPD and frequent steroid use. Viral respiratory panel negative 04/18, strep group A negative 04/18. WBC noted to be elevated throughout current admission, possibly due to increased steroid use to manage acute hypoxic failure due to COPD exacerbation. ? Patient completed azithromycin 500 mg 5 day course [04/19-04/23] ? Will continue to monitor with daily CBC #Constipation #Low lumbar back pain #Abdominal pain #Pancreatitis r/o Patient had abdominal pain 04/22 and 04/23. CT abdomen pelvis without contrast ordered due to concerns for possible acute process such as appendicitis. CT abdomen pelvis 04/23 negative for acute concerns or bowel obstructions, but large stool burden noted. Patient is on lactulose 10g as needed for constipation at home, potentially related to history of opioid use. Patient has low lumbar back pain that started 04/23. CT abdomen pelvis done on the same day that her low lumbar back pain started was negative for acute processes in her spine, with the only abnormality noted as advanced degenerative disc disease in L4-L5 and L5-S1. Very low suspicion for acute causes of abdominal and back pain given highly inconsistent pattern of pain. Further imaging highly unlikely to change current management of care. ? Restarted home lactulose 10 g as needed ? Ordered lactulose 30 gm one-time dose on 04/24 ? Will order lipase to rule out possible pancreatitis ? Lipase 03/3148, within normal limits ? Ordered lidocaine patch ? 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 Noncardiac etiology suspected. Troponins negative on 04/18 and 04/20. EKG 04/21 negative for acute ischemic changes. ? Will continue to anticipate improvement and worsening of chest pain depending on respiratory status, suspect that treatment of COPD will resolve chest pain ? Will continue patient's Eliquis ? Pain relief as indicated #Lower extremity edema (resolving) #History of Takatsubo cardiomyopathy [2023] #Right upper extremity edema #Right upper extremity thrombophlebitis r/o Patient presented with lower peripheral edema, had BNP of 116 on 04/18, and was given IV Lasix 40 mg one-time dose on 04/18. TTE showed normal left ventricular size and function with EF 60%, no wall motion abnormalities noted. Patient noted to have right upper extremity edema on 04/24. Given patient's history of peripheral IV on right arm lack of pain and erythema, and Eliquis use, there is low suspicion for thrombophlebitis. ? Will continue to monitor fluid status ? Received 1L NS on 04/22 per Nephrology recommendations ? Started patient on Lasix 40 mg IV twice daily with albumin 25 mg/kg twice daily schedule 30 minutes before Lasix per recommendations by Nephrology ? Discontinued Lasix 40 mg IV 04/25 and ordered glycopyrrolate 2 mg one-time dose per nephrology recommendations ? Ordered right upper extremity ultrasound to rule out right upper extremity thrombophlebitis ? RUE ultrasound 04/24 negative for thrombus #Atrial fibrilation with rate control #History of A-fib with RVR Patient has a history of atrial fibrillation with RVR. EKG 04/21 shows sinus rhythm. ? Continue diltiazem 180 mg daily ? Willl hold home Eliquis 5 mg p.o. twice daily for dialysis cath insertion on tuesday ? Continue aspirin 81 mg daily ? Continue to hold home metoprolol #Primary Hypertension Patient has a history of hypertension on spironolactone, metazalone, lisinopril, and hydralazine at home. Patient presented to ED with BP of 137/82. ? Continue hydralazine 100 mg p.o. 3 times daily ? Continue spironolactone 50 mg p.o. daily ? Continue diltiazem 180 mg p.o. daily ? Restarting home lisinopril 40 mg daily, restarting home clonidine 0.1 mg twice daily, and restarting home amlodipine 10 mg daily #Type 2 diabetes mellitus, dependent on insulin #Hyperglycemia, likely due to steroid use ? Will continue to monitor fasting glucose ? Continue intermediate sliding scale ? Continue glargine 45 units in the morning ? Discontinued insulin lispro 12 units 3 times daily (with meals) ? Ordered glargine 20 units to be given at night ? Educated the patient on not eating food from outside the hospital ? Obtain FreeStyle Dante for patient to more closely monitor blood glucose #Chronic hepatitis C infection Patient tested positive for hepatitis C antibody on 04/21/2025 and 02/18/2024. ? Will continue to monitor with daily CMP -Pt will need to follow up outpatient with infectious disease specialist for further work up and treament options #Polysubstance use disorder (methamephetamine and heroin) Patient has history of methamphetamine and heroin abuse. On methadone outpatient. ? Will decrease methadone to 75 mg p.o. daily #Anxiety Patient has history of anxiety. ? Will hold patient's home BuSpar 5 mg p.o. daily and diazepam 5 mg p.o. twice daily PRN due to increased somnolence Health Maintenance Disposition: Telemetry, currently on methadone and pending permanent dialysis cath on tuesday DVT Prophylaxis: Eliquis GI Prophylaxis: Pantoprazole Diet: Cardiac diet with consistent low carb Lines: Peripheral IV Antibiotics: N/A Code Status: FULL Assessment and plan discussed with my attending physician Dr. Wilmer Ghotra (PGY-2)- Internal medicine resident Attending Provider Attestation/Addendum I attest that I was physically present for the evaluation, physical examination, lab and imaging review of the patient with the residents. I discussed the case with the residents and agree with the findings and plans of care as documented above. At bedside today, patient appears somnolent, hard to awake and goes back to sleep right away. Continues to complain of mild pain, controlled with analgesics. Noted to have elevated potassium 5.3 today, also has BUN of 107 and creatinine 2. Discussed with nephrology, we will plan for permanent dialysis catheter placement on Tuesday, holding anticoagulation for the procedure. We will also decrease her methadone to 75 mg and hold baclofen and buspirone. Vitals are stable, saturating well on 2 L nasal cannula. Also noted to have WBC of 21.6, increased from 14.7 yesterday no signs of active infection, we will monitor closely. Lul Guillen MD
--- NOTE | 2025-04-26 12:48 | PC.SS ---
SS communicated with Ale from [facility] who states she has started insurance authorization.
--- NOTE | 2025-04-26 15:29 | PC.SS ---
Addendum entered by Lucero Pate 04/26/25 16:13: SS received call from [place] patient's friend (resides with pt) phone# [phone] who states he can provide transportation to [facility] when she d/c to [facility]. Original Note: SS received call from Kimberly at [facility] who states pt is going to be new dialysis and will require insurance approval and patient's Social Security #. SS has faxed inquiry to [facility].
[2025-04-26] MEDS: TUBERCULIN PPD INJ 5 UNIT/0.1 ML DOSE ID (17:23)
[2025-04-26] MEDS: INSULIN GLARGINE (Lantus) 5 UNIT/0.05 ML (PER 5 UNITS) 20 UNIT SC (20:49)
[2025-04-27] VITALS (19 sets, daily range): BP systolic 104–145; BP diastolic 52–93; PULSE 64–95; RESP 16–23; TEMP 35.9–36.6; O2SAT 93–100; BMI 27.2
[2025-04-27] MEDS: ALBUTEROL/IPRATROPIUM (Duoneb) RT SOL 3 ML NEBU INH ×6 (03:53→22:43)
[2025-04-27 05:57] LABS: Basophils # (Auto) 0.0 Thou/mm3 (0.0-0.2); Basophils % (Auto) 0 % (0-2.5); Eosinophils # (Auto) 0.0 Thou/mm3 (0.0-0.5); Eosinophils % (Auto) 0 % (0-10); Hematocrit 29.4 % (36.0-46.0); Hemoglobin 9.3 g/dL (12.0-16.0); Immature Granulocytes Auto 0.40 Thou/mm3 (0.00-0.00); Lymphocytes # (Auto) 0.8 Thou/mm3 (1.0-4.8); Lymphocytes % (Auto) 4 % (10-50); Mean Corpuscular HGB Conc 31.6 g/dl (31.0-37.0); Mean Corpuscular Hemoglobin 25.1 pg (25.0-35.0); Mean Corpuscular Volume 79 fL (80-100); Monocytes # (Auto) 1.4 Thou/mm3 (0.0-0.8); Monocytes % (Auto) 7 % (0-12); Neutrophils # (Auto) 18.3 Thou/mm3 (1.8-7.7); Neutrophils % (Auto) 87 % (37-80); Nucleated Red Blood Cell # 0.00 Thou/mm3 (0.00-0.00); Nucleated Red Blood Cell % 0 /100 WBC (0); Platelet Count 221 Thou/mm3 (140-440); RDW Standard Deviation 41.6 fL (36.4-46.3); Red Blood Count 3.71 Miln/mm3 (4.00-5.20); White Blood Count 20.9 Thou/mm3 (3.6-11.0)
[2025-04-27] MEDS: FLUTICASONE/SALMETEROL 250/50 14 DOSE INH 1 PUFF INH ×2 (06:19→19:16)
[2025-04-27 06:45] LABS: Alanine Aminotransferase 23 U/L (10-49); Albumin, Serum 3.7 gm/dL (3.4-4.8); Albumin/Globulin Ratio 1.9 (1.2-2.2); Alkaline Phosphatase 47 U/L (46-116); Anion Gap 12 (7-16); Aspartate Amino Transferase 18 U/L (0-34); BUN/Creatinine Ratio 41 Ratio (12-20); Bilirubin,Total 0.5 mg/dL (0.3-1.2); Blood Urea Nitrogen 77 mg/dL (9-23); Calcium 9.0 mg/dL (8.3-10.6); Calcium (Corrected) 9.2 mg/dL (8.5-10.1); Carbon Dioxide 23.6 mMol/L (20.0-31.0); Chloride 101 mMol/L (98-107); Creatinine (Component) 1.9 mg/dL (0.6-1.3); Estimated Creatinine Clearance 29.9 mL/min (>60); Globulin 1.9 gm/dL (2.3-3.5); Glucose 141 mg/dL (74-106); Magnesium 2.3 mg/dL (1.6-2.6); Osmolality,Calculated 298 (275-295); Phosphorous 3.7 mg/dL (2.4-5.1); Potassium 5.4 mMol/L (3.4-5.1); Sodium 137 mMol/L (136-145); Total Protein 5.6 gm/dL (5.7-8.2); eGFR 29 See Note
[2025-04-27] MEDS: DILTIAZEM CD 180 MG CAPCR PO (09:02)
[2025-04-27] MEDS: PANTOPRAZOLE 40 MG TABLET PO (09:03)
[2025-04-27] MEDS: ASPIRIN EC 81 MG TABEC PO (09:03)
[2025-04-27] MEDS: NICOTINE PATCH 21 MG/24 HR PATCH.TD24 TOP (09:03)
[2025-04-27] MEDS: INSULIN GLARGINE (Lantus) 5 UNIT/0.05 ML (PER 5 UNITS) 45 UNIT SC (09:04)
[2025-04-27] MEDS: METHADONE HCL 10 MG TABLET 75 MG PO (09:04)
[2025-04-27] MEDS: SOD POLYSTYRENE SULFON SUSP 15 GM/60 ML BTL 30 GM PO (09:23)
[2025-04-27] MEDS: DEXTROSE 50%-WATER INJ 50 ML SYRINGE 100 ML IV (10:05)
[2025-04-27] MEDS: INSULIN HUM REGULAR 1 UNIT/0.01 ML (PER UNIT) 5 UNIT IV (10:06)
[2025-04-27] MEDS: INSULIN LISPRO (AdmeLOG) 1 UNIT/0.01 ML UNIT SC ×3 (12:40→20:06)
--- NOTE | 2025-04-27 13:30 | PD.RESPRO ---
Documentation for date of: 04/27/25 Subjective Subjective Interval history: No acute overnight events reported ,patient is seen and examined at bedside. Mentation has improved, we will continue to hold suspected medications. Potassium 5.4, patient was given insulin 5 x 1, Kayexalate 30 p.o. x 1 Patient has good urine output, renal function did improve compared to yesterday, per nephrology continue to hold Eliquis and aspirin. Anticipate permanent dialysis catheter placement on Tuesday. Exam Vital Signs Temp Pulse Resp BP Pulse Ox O2 Del Method O2 Flow Rate 97.6 F 85 19 145/66 H 96 Nasal Cannula 2 04/27/25 12:00 04/27/25 12:04/27/25 12:04/27/25 12:04/27/25 12:04/27/25 12:04/27/25 10:29 Narrative Exam GENERAL: somnolent obese female, Not in acute distress NEURO: no focal neurological deficits HEENT: Atraumatic, Normocephalic. mucous membranes moist. Eyes open, symmetrical, & clear HEART: Normal Heart Sounds LUNGS: Clear to auscultation with no wheezing or crackles. ABDOMEN: soft, non-distended, non-tender, bowel sounds heard, no guarding or rebound tenderness SKIN: No Rash or ecchymoses EXTREMITIES: No edema, tenderness, able to move all 4 extremities, pedal pulses palpated Objective Labs 04/27/25 05:33 04/27/25 05:33 Labs: Laboratory Results - last 24 hr 04/27/25 05:33 WBC 20.9 H RBC 3.71 L Hgb 9.3 L Hct 29.4 L MCV 79 L MCH 25.1 MCHC 31.6 RDW Std Deviation 41.6 Plt Count 221 Neut % (Auto) 87 H Lymph % (Auto) 4 L [place] % (Auto) 7 Eos % (Auto) 0 Baso % (Auto) 0 Neut # (Auto) 18.3 H Lymph # (Auto) 0.8 L [place] # (Auto) 1.4 H Eos # (Auto) 0.0 Baso # (Auto) 0.0 Immature Gran # (Auto) 0.40 H Absolute Nucleated RBC 0.00 Immature Gran % 2 H Nucleated RBC % 0 Sodium 137 Potassium 5.4 H Chloride 101 Carbon Dioxide 23.6 Anion Gap 12 BUN 77 H Creatinine 1.9 H Estim Creat Clear Calc 29.9 L eGFR 29 L BUN/Creatinine Ratio 41 H Glucose 141 H D Calculated Osmolality 298 H Calcium 9.0 Corrected Calcium 9.2 Phosphorus 3.7 Magnesium 2.3 Total Bilirubin 0.5 AST 18 ALT 23 Alkaline Phosphatase 47 Total Protein 5.6 L Albumin 3.7 Globulin 1.9 L Albumin/Globulin Ratio 1.9 ABG Interpretation ABG results: 04/18/25 20:40 VBG pH 7.47 VBG pCO2 36 VBG pO2 72 H VBG Base Excess 2 Quality Measures Quality Measures VTE prophylaxis Assessment & Plan Assessment Current Active Medications: Generic Name Dose Route Start Last Admin Trade Name Freq PRN Reason Stop Dose Admin Acetaminophen 650 mg 04/19/25 07:42 04/25/25 07:38 Acetaminophen 325 Mg Tablet PO 05/18/25 22:12 650 mg Q6H PRN Administration Mild Pain 1-3 or fever >100.1 Albuterol/Ipratropium 3 ml 04/22/25 11:00 04/27/25 10:29 Albuterol/Ipratropium (Duoneb) Rt Blanca 3 Ml Nebu INH 05/22/25 10:59 3 ml Q4HRRT KIP Administration Amlodipine Besylate 10 mg 04/25/25 09:00 04/27/25 09:03 Amlodipine Besylate 5 Mg Tablet PO 05/25/25 08:59 10 mg QDAY KIP Administration Apixaban 5 mg 04/19/25 09:00 04/26/25 08:47 Apixaban 2.5 Mg Tablet PO 05/19/25 08:59 5 mg BID KIP Administration Aspirin 81 mg 04/19/25 09:00 04/27/25 09:03 Aspirin Ec 81 Mg Tabec PO 05/19/25 08:59 81 mg QDAY KIP Administration Baclofen 10 mg 04/24/25 11:00 04/26/25 20:49 Baclofen 10 Mg Tablet PO 05/24/25 10:59 10 mg BID KIP Administration Buspirone HCl 5 mg 04/19/25 09:00 04/26/25 08:45 Buspirone Hcl 5 Mg Tablet PO 05/19/25 08:59 5 mg QDAY KIP Administration Clonidine 0.1 mg 04/25/25 09:00 04/27/25 09:03 Clonidine Hcl 0.1 Mg Tablet PO 05/25/25 08:59 0.1 mg BID KIP Administration Methadone 100 Mg 0 ea 04/19/25 14:00 04/24/25 09:51 Cups PO 05/19/25 13:59 1 bottle DAILY KIP Administration Protocol Dextrose 25 ml 04/18/25 22:19 Dextrose 50%-Water Inj 50 Ml Syringe IV 05/18/25 22:18 Q15MIN PRN BG 50-70 responsive npo pt Dextrose 50 ml 04/18/25 22:19 Dextrose 50%-Water Inj 50 Ml Syringe IV 05/18/25 22:18 Q15MIN PRN BG <50 OR BG <70 & pt unresponsive Diltiazem HCl 180 mg 04/20/25 09:00 04/27/25 09:02 Diltiazem Cd 180 Mg Capcr PO 05/20/25 08:59 180 mg QDAY KIP Administration Glucagon 1 mg 04/18/25 22:19 Glucagon Inj 1 Mg Vial IM Q15MIN PRN BG <70, and no IV access Hydralazine HCl 100 mg 04/19/25 08:45 04/27/25 05:38 Hydralazine Hcl 25 Mg Tablet PO 05/19/25 08:44 100 mg TID KIP Administration Insulin Glargine 45 unit 04/23/25 09:00 04/27/25 09:04 Insulin Glargine (Lantus) 5 Unit/0.05 Ml (Per 5 Units) SC 05/23/25 08:59 45 unit QDAY KIP Administration Insulin Glargine 20 unit 04/24/25 21:00 04/26/25 20:49 Insulin Glargine (Lantus) 5 Unit/0.05 Ml (Per 5 Units) SC 05/24/25 20:59 20 unit HS KIP Administration Insulin Human Lispro 0 unit 04/19/25 21:00 04/27/25 12:40 Insulin Lispro (Admelog) 1 Unit/0.01 Ml Unit SC 05/19/25 20:59 4 unit ACHS KIP Administration Protocol Lactulose 10 gm 04/23/25 14:15 Lactulose Syrup 20 Gm/30 Ml Udc PO 05/23/25 14:14 X1 PRN CONSTIPATION Protocol Lidocaine 1 patch 04/22/25 16:48 04/24/25 04:34 Lidocaine 5% 1 Patch TOP 05/22/25 16:47 1 patch DAILY PRN Administration LOCALIZED PAIN Lisinopril 40 mg 04/25/25 09:00 04/26/25 08:45 Lisinopril 20 Mg Tablet PO 05/25/25 08:59 40 mg QDAY KIP Administration Methadone HCl 75 mg 04/27/25 09:00 04/27/25 09:04 Methadone Hcl 10 Mg Tablet PO 05/02/25 08:59 75 mg QDAY KIP Administration Methylprednisolone Sodium Succinate 20 mg 04/27/25 09:00 04/27/25 09:09 Methylprednisolone Sod Succ 40 Mg Vial IVP 05/04/25 08:59 20 mg QDAY KIP Administration Nicotine 21 mg 04/21/25 09:00 04/27/25 09:03 Nicotine Patch 21 Mg/24 Hr Patch.Td24 TOP 05/21/25 08:59 21 mg QDAY KIP Administration Nitroglycerin 0.4 mg 04/20/25 08:14 04/20/25 11:22 Nitroglycerin 0.4 Mg Subl Btl #25 SL 0.4 mg Q5MIN PRN Administration CHEST PAIN Ondansetron HCl 4 mg 04/18/25 22:13 04/22/25 01:40 Ondansetron Inj 2 Mg/Ml Inj 2 Ml IVP 05/18/25 22:12 4 mg Q6H PRN Administration NAUSEA OR VOMITING Protocol Pantoprazole Sodium 40 mg 04/24/25 09:00 04/27/25 09:03 Pantoprazole 40 Mg Tablet PO 05/24/25 08:59 40 mg QDAY KIP Administration Protocol Fluticasone/Salmeterol 1 puff 04/19/25 07:00 04/27/25 06:19 Fluticasone/Salmeterol 250/50 14 Dose Inh INH 05/19/25 06:59 1 puff BIDRT KIP Administration Sennosides 1 tab 04/18/25 22:13 Senna Tablet PO 05/18/25 22:12 QDAY PRN constipation Protocol Sodium Chloride 3 ml 04/21/25 10:39 04/21/25 11:03 Sodium Chloride Rt [place] 0.9% 3 Ml Nebu INH 05/21/25 10:38 3 ml PRN PRN Administration SOLN Spironolactone 50 mg 04/19/25 09:00 04/19/25 09:53 Spironolactone 25 Mg Tablet PO 05/19/25 08:59 50 mg QDAY KIP Administration Plan Mrs. Diaz is a 64 year old female with a history of COPD (2-3L home O2), A-fib on Eliquis, hypertension, CKD stage IIIb, T2DM, polysubstance use disorder, history of ESBL UTI, Takotsubo cardiomyopathy [diagnosed 2023] who came for worsening shortness of breath. Patient was admitted for management of acute hypoxic failure due to COPD. #THEO on CKD stage IIIb, #Uremia #CKD Stage IIIb Patient has a history of CKD with worsening kidney function with worsening mentation -Per nephrology due to repeatedly increase in BUN and worsening mentation (pt is extremely somnolent and barely arousable to painful stimuli), will plan for dialysis on tuesday (04/29), will order permanent dialysis cath for tuesday and hold home aspirin and eliquis. #Acute on chronic hypoxic failure due to #Acute on Chronic COPD exacerbation #COPD #Nicotine Use Disorder/Current Smoker Patient endorsed worsening of shortness of breath and chest pain that led to her seeking treatment in the ED on 04/18/2025. Patient has been using her Trelegy inhaler once a day and her albuterol inhaler 4 times a day after her recent discharge on 04/06. Home medications were providing minimal relief. Patient had a light yellow sputum production. Due to the patient's COPD exacerbation history, this is most likely another COPD exacerbation. Patient's acute episode of dyspnea meets criteria for COPD exacerbation. Chest x-ray 04/18 negative for acute findings, repeat chest x-ray 04/21 also negative for acute findings VBG 04/18 pH 7.47, PCO2 36, PO2 72, O2 sat 97% ? Maintain patient's oxygen saturation between 88% and 92% given history of COPD ? Continue DuoNeb 3 mL every 4 hours [employer] ? Continue methylprednisolone 20 mg IVP Qday ? Continue fluticasone/salmeterol 1 puff twice daily RT ? Continue to monitor patient's oxygen status ? Recommend CT chest scan in 3 to 6 months to follow-up on CTA chest on 04/03 ? Coccidioides panel not ordered due to recent negative on 04/04/2025 ? Discontinued ceftriaxone due to low suspicion of PNA given negative chest x-ray findings x 2 #Leukocytosis Patient was producing light yellow sputum via cough and has a history of green mucus production. Patient is more susceptible to infection due to history of COPD and frequent steroid use. Viral respiratory panel negative 04/18, strep group A negative 04/18. WBC noted to be elevated throughout current admission, possibly due to increased steroid use to manage acute hypoxic failure due to COPD exacerbation. ? Patient completed azithromycin 500 mg 5 day course [04/19-04/23] ? Will continue to monitor with daily CBC #Constipation #Low lumbar back pain #Abdominal pain #Pancreatitis r/o Patient had abdominal pain 04/22 and 04/23. CT abdomen pelvis without contrast ordered due to concerns for possible acute process such as appendicitis. CT abdomen pelvis 04/23 negative for acute concerns or bowel obstructions, but large stool burden noted. Patient is on lactulose 10g as needed for constipation at home, potentially related to history of opioid use. Patient has low lumbar back pain that started 04/23. CT abdomen pelvis done on the same day that her low lumbar back pain started was negative for acute processes in her spine, with the only abnormality noted as advanced degenerative disc disease in L4-L5 and L5-S1. Very low suspicion for acute causes of abdominal and back pain given highly inconsistent pattern of pain. Further imaging highly unlikely to change current management of care. ? Restarted home lactulose 10 g as needed ? Ordered lactulose 30 gm one-time dose on 04/24 ? Will order lipase to rule out possible pancreatitis ? Lipase 04/25: 48, within normal limits ? Ordered lidocaine patch ? 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 Noncardiac etiology suspected. Troponins negative on 04/18 and 04/20. EKG 04/21 negative for acute ischemic changes. ? Will continue to anticipate improvement and worsening of chest pain depending on respiratory status, suspect that treatment of COPD will resolve chest pain ? Will continue patient's Eliquis ? Pain relief as indicated #Lower extremity edema (resolving) #History of Takatsubo cardiomyopathy [2023] #Right upper extremity edema #Right upper extremity thrombophlebitis r/o Patient presented with lower peripheral edema, had BNP of 116 on 04/18, and was given IV Lasix 40 mg one-time dose on 04/18. TTE showed normal left ventricular size and function with EF 60%, no wall motion abnormalities noted. Patient noted to have right upper extremity edema on 04/24. Given patient's history of peripheral IV on right arm lack of pain and erythema, and Eliquis use, there is low suspicion for thrombophlebitis. ? Will continue to monitor fluid status ? Received 1L NS on 04/22 per Nephrology recommendations ? Started patient on Lasix 40 mg IV twice daily with albumin 25 mg/kg twice daily schedule 30 minutes before Lasix per recommendations by Nephrology ? Discontinued Lasix 40 mg IV 04/25 and ordered glycopyrrolate 2 mg one-time dose per nephrology recommendations ? Ordered right upper extremity ultrasound to rule out right upper extremity thrombophlebitis ? RUE ultrasound 04/24 negative for thrombus #Atrial fibrilation with rate control #History of A-fib with RVR Patient has a history of atrial fibrillation with RVR. EKG 04/21 shows sinus rhythm. ? Continue diltiazem 180 mg daily ? Willl hold home Eliquis 5 mg p.o. twice daily for dialysis cath insertion on tuesday ? Continue aspirin 81 mg daily ? Continue to hold home metoprolol #Primary Hypertension Patient has a history of hypertension on spironolactone, metazalone, lisinopril, and hydralazine at home. Patient presented to ED with BP of 137/82. ? Continue hydralazine 100 mg p.o. 3 times daily ? Continue spironolactone 50 mg p.o. daily ? Continue diltiazem 180 mg p.o. daily ? Restarting home lisinopril 40 mg daily, restarting home clonidine 0.1 mg twice daily, and restarting home amlodipine 10 mg daily #Type 2 diabetes mellitus, dependent on insulin #Hyperglycemia, likely due to steroid use ? Will continue to monitor fasting glucose ? Continue intermediate sliding scale ? Continue glargine 45 units in the morning ? Discontinued insulin lispro 12 units 3 times daily (with meals) ? Ordered glargine 20 units to be given at night ? Educated the patient on not eating food from outside the hospital ? Obtain FreeStyle Dante for patient to more closely monitor blood glucose #Chronic hepatitis C infection Patient tested positive for hepatitis C antibody on 04/21/2025 and 02/18/2024. ? Will continue to monitor with daily CMP -Pt will need to follow up outpatient with infectious disease specialist for further work up and treament options #Polysubstance use disorder (methamephetamine and heroin) Patient has history of methamphetamine and heroin abuse. On methadone outpatient. ? Will decrease methadone to 75 mg p.o. daily #Anxiety Patient has history of anxiety. ? Will hold patient's home BuSpar 5 mg p.o. daily and diazepam 5 mg p.o. twice daily PRN due to increased somnolence - Hold Baclofen Health Maintenance Disposition: Telemetry, pending permanent dialysis cath on tuesday DVT Prophylaxis: Eliquis-Being Held GI Prophylaxis: Pantoprazole Diet: Cardiac diet with consistent low carb Lines: Peripheral IV Antibiotics: N/A Code Status: FULL Assessment and plan discussed with my attending physician Dr. Wilmer Paul (PGY-2)- Internal medicine resident. Attending Provider Attestation/Addendum I attest that I was physically present for the evaluation, physical examination, lab and imaging review of the patient with the residents. I discussed the case with the residents and agree with the findings and plans of care as documented above. At bedside today, patient is alert and awake, improved mentation compared to yesterday. We will continue to hold off on baclofen and buspirone and continue with methadone 75 daily. Continues to be on methylprednisolone 20, we will continue to taper slowly. Kidney function noted to be improved compared to yesterday, potassium is 5.4, patient received IV insulin. Discussed with nephrology, recommended continuing to monitor kidney function until Tuesday, we will hold off on hemodialysis if continues to improve, otherwise we will plan for permanent dialysis catheter placement. We will continue to hold anticoagulation. Vital signs continue to remain stable, currently on 3 L nasal cannula, saturating well. Lul Guillen MD
--- NOTE | 2025-04-27 13:54 | PD.RESPRO ---
Documentation for date of: 04/27/25 Subjective Subjective Interval history: Ms. Diaz is a 63-year-old female with past medical history of COPD on 2 L home oxygen, A-fib, hypertension, CKD stage IIIb, [id number] type 2 diabetes, polysubstance use disorder presents to the ED on 04/18 with increased episodes of shortness of breath. Patient states that ever since being discharged on 04/06 for COPD exacerbation she was doing okay; however, tonight she started developing increased level of shortness of breath. Patient states that she tried using her home inhalers including albuterol but those did not help her symptoms. Patient denies having any sick contacts; however, she is reporting some sore throat which has worsened in the past several days. Patient otherwise denies any fever/chills or any other concerning cardiac symptoms at this time. Nephrology consulted for management of THEO. Home medications included amlodipine, aspirin, BuSpar, clonidine, Valium, Eliquis, Trelegy, Lasix, hydralazine, Basaglar, DuoNeb, lactulose, lisinopril, meclizine, methadone, metolazone, metoprolol, Aldactone 04/24/2025: Patient seen and examined at bedside. Reports intense, constant pain across lower back and at R abdomen. Breathing slightly improved. BUN decreased to 87, Cr improved at 1.8. Good urine output of 4.7L over last 24h. Recommend to continue IV lasix 40 mg BID with albumin 25 g BID for 3 days (04/23- ). 04/25/2025: Patient seen and examined at bedside. Abdominal pain and back pain are mild and better controlled. Much improved shortness of breath. BUN increased 90, and recommend to stop diuretics. Cr improved from 1.8 to 1.7. 04/26/2025: Patient seen and examined at bedside. pain is better controlled, and less shortness of breath. BUN 107, Cr 2.0. Urine output 2.1L. Plan for HD via perm cath on Tuesday04/29/25, CTM BUN, pt may require vas catheter over the weekend if continues to increase. Concern for somnolence on exam later today, query if somnolence is 2/2 high methadone and buspar doses that patient takes chronically. 04/27/2025: Patient seen and examined at bedside. Patient has decreased somnolence compared to exam yesterday. Patient's mother in law seen at bedside visiting. BUN 77 from 107, creatinine 1.9 from 2.0 K 5.4 from 5.3. Continue plan for permacatheter on 04/29/2025. No HD today Exam Vital Signs Temp Pulse Resp BP Pulse Ox O2 Del Method O2 Flow Rate 97.6 F 85 19 145/66 H 96 Nasal Cannula 2 04/27/25 12:00 04/27/25 13:46 04/27/25 12:00 04/27/25 13:46 04/27/25 12:00 04/27/25 12:00 04/27/25 10:29 Narrative Exam GENERAL: AOx3, no acute distress less somnolent on exam today. HEENT: NC/AT, mucous membranes moist, bilateral sclera anicteric CARDIOVASCULAR: regular rate and rhythm, S1/S2 present, no murmurs appreciated PULMONARY: mild b/l rhonchi, mild b/l expiratory wheezes ABDOMINAL: soft, non-distended, no rebound/guarding, bowel sounds present,mild abdominal tenderness EXTREMITIES: no lower leg edema, trace pitting edema at hips, RUE edema and shoulder pain that limits range of motion. SKIN: warm and dry, intact, no rashes NEURO: no focal deficits, alert, following commands Objective Labs 04/27/25 05:33 04/27/25 05:33 Labs: Laboratory Results - last 24 hr 04/27/25 05:33 WBC 20.9 H RBC 3.71 L Hgb 9.3 L Hct 29.4 L MCV 79 L MCH 25.1 MCHC 31.6 RDW Std Deviation 41.6 Plt Count 221 Neut % (Auto) 87 H Lymph % (Auto) 4 L [place] % (Auto) 7 Eos % (Auto) 0 Baso % (Auto) 0 Neut # (Auto) 18.3 H Lymph # (Auto) 0.8 L [place] # (Auto) 1.4 H Eos # (Auto) 0.0 Baso # (Auto) 0.0 Immature Gran # (Auto) 0.40 H Absolute Nucleated RBC 0.00 Immature Gran % 2 H Nucleated RBC % 0 Sodium 137 Potassium 5.4 H Chloride 101 Carbon Dioxide 23.6 Anion Gap 12 BUN 77 H Creatinine 1.9 H Estim Creat Clear Calc 29.9 L eGFR 29 L BUN/Creatinine Ratio 41 H Glucose 141 H D Calculated Osmolality 298 H Calcium 9.0 Corrected Calcium 9.2 Phosphorus 3.7 Magnesium 2.3 Total Bilirubin 0.5 AST 18 ALT 23 Alkaline Phosphatase 47 Total Protein 5.6 L Albumin 3.7 Globulin 1.9 L Albumin/Globulin Ratio 1.9 ABG Interpretation ABG results: 04/18/25 20:40 VBG pH 7.47 VBG pCO2 36 VBG pO2 72 H VBG Base Excess 2 Quality Measures Quality Measures VTE prophylaxis Assessment & Plan Assessment Current Active Medications: Generic Name Dose Route Start Last Admin Trade Name Freq PRN Reason Stop Dose Admin Acetaminophen 650 mg 04/19/25 07:42 04/25/25 07:38 Acetaminophen 325 Mg Tablet PO 05/18/25 22:12 650 mg Q6H PRN Administration Mild Pain 1-3 or fever >100.1 Albuterol/Ipratropium 3 ml 04/22/25 11:00 04/27/25 10:29 Albuterol/Ipratropium (Duoneb) Rt [place] 3 Ml Nebu INH 05/22/25 10:59 3 ml Q4HRRT KIP Administration Amlodipine Besylate 10 mg 04/25/25 09:00 04/27/25 09:03 Amlodipine Besylate 5 Mg Tablet PO 05/25/25 08:59 10 mg QDAY KIP Administration Apixaban 5 mg 04/19/25 09:00 04/26/25 08:47 Apixaban 2.5 Mg Tablet PO 05/19/25 08:59 5 mg BID KIP Administration Aspirin 81 mg 04/19/25 09:00 04/27/25 09:03 Aspirin Ec 81 Mg Tabec PO 05/19/25 08:59 81 mg QDAY KIP Administration Baclofen 10 mg 04/24/25 11:00 04/26/25 20:49 Baclofen 10 Mg Tablet PO 05/24/25 10:59 10 mg BID KIP Administration Buspirone HCl 5 mg 04/19/25 09:00 04/26/25 08:45 Buspirone Hcl 5 Mg Tablet PO 05/19/25 08:59 5 mg QDAY KIP Administration Clonidine 0.1 mg 04/25/25 09:00 04/27/25 09:03 Clonidine Hcl 0.1 Mg Tablet PO 05/25/25 08:59 0.1 mg BID KIP Administration Methadone 100 Mg 0 ea 04/19/25 14:00 04/24/25 09:51 Cups PO 05/19/25 13:59 1 bottle DAILY KIP Administration Protocol Dextrose 25 ml 04/18/25 22:19 Dextrose 50%-Water Inj 50 Ml Syringe IV 05/18/25 22:18 Q15MIN PRN BG 50-70 responsive npo pt Dextrose 50 ml 04/18/25 22:19 Dextrose 50%-Water Inj 50 Ml Syringe IV 05/18/25 22:18 Q15MIN PRN BG <50 OR BG <70 & pt unresponsive Diltiazem HCl 180 mg 04/20/25 09:00 04/27/25 09:02 Diltiazem Cd 180 Mg Capcr PO 05/20/25 08:59 180 mg QDAY KIP Administration Glucagon 1 mg 04/18/25 22:19 Glucagon Inj 1 Mg Vial IM Q15MIN PRN BG <70, and no IV access Hydralazine HCl 100 mg 04/19/25 08:45 04/27/25 13:46 Hydralazine Hcl 25 Mg Tablet PO 05/19/25 08:44 100 mg TID KIP Administration Insulin Glargine 45 unit 04/23/25 09:00 04/27/25 09:04 Insulin Glargine (Lantus) 5 Unit/0.05 Ml (Per 5 Units) SC 05/23/25 08:59 45 unit QDAY KIP Administration Insulin Glargine 20 unit 04/24/25 21:00 04/26/25 20:49 Insulin Glargine (Lantus) 5 Unit/0.05 Ml (Per 5 Units) SC 05/24/25 20:59 20 unit HS KIP Administration Insulin Human Lispro 0 unit 04/19/25 21:00 04/27/25 12:40 Insulin Lispro (Admelog) 1 Unit/0.01 Ml Unit SC 05/19/25 20:59 4 unit ACHS KIP Administration Protocol Lactulose 10 gm 04/23/25 14:15 Lactulose Syrup 20 Gm/30 Ml Udc PO 05/23/25 14:14 X1 PRN CONSTIPATION Protocol Lidocaine 1 patch 04/22/25 16:48 04/24/25 04:34 Lidocaine 5% 1 Patch TOP 05/22/25 16:47 1 patch DAILY PRN Administration LOCALIZED PAIN Lisinopril 40 mg 04/25/25 09:00 04/26/25 08:45 Lisinopril 20 Mg Tablet PO 05/25/25 08:59 40 mg QDAY KIP Administration Methadone HCl 75 mg 04/27/25 09:00 04/27/25 09:04 Methadone Hcl 10 Mg Tablet PO 05/02/25 08:59 75 mg QDAY KIP Administration Methylprednisolone Sodium Succinate 20 mg 04/27/25 09:00 04/27/25 09:09 Methylprednisolone Sod Succ 40 Mg Vial IVP 05/04/25 08:59 20 mg QDAY KIP Administration Nicotine 21 mg 04/21/25 09:00 04/27/25 09:03 Nicotine Patch 21 Mg/24 Hr Patch.Td24 TOP 05/21/25 08:59 21 mg QDAY KIP Administration Nitroglycerin 0.4 mg 04/20/25 08:14 04/20/25 11:22 Nitroglycerin 0.4 Mg Subl Btl #25 SL 0.4 mg Q5MIN PRN Administration CHEST PAIN Ondansetron HCl 4 mg 04/18/25 22:13 04/22/25 01:40 Ondansetron Inj 2 Mg/Ml Inj 2 Ml IVP 05/18/25 22:12 4 mg Q6H PRN Administration NAUSEA OR VOMITING Protocol Pantoprazole Sodium 40 mg 04/24/25 09:00 04/27/25 09:03 Pantoprazole 40 Mg Tablet PO 05/24/25 08:59 40 mg QDAY KIP Administration Protocol Fluticasone/Salmeterol 1 puff 04/19/25 07:00 04/27/25 06:19 Fluticasone/Salmeterol 250/50 14 Dose Inh INH 05/19/25 06:59 1 puff BIDRT KIP Administration Sennosides 1 tab 04/18/25 22:13 Senna Tablet PO 05/18/25 22:12 QDAY PRN constipation Protocol Sodium Chloride 3 ml 04/21/25 10:39 04/21/25 11:03 Sodium Chloride Rt [place] 0.9% 3 Ml Nebu INH 05/21/25 10:38 3 ml PRN PRN Administration SOLN Spironolactone 50 mg 04/19/25 09:00 04/19/25 09:53 Spironolactone 25 Mg Tablet PO 05/19/25 08:59 50 mg QDAY KIP Administration Plan Christina Diaz is a 64-year-old F with a PMH of ESBL UTI, COPD on 2-3 L at home, atrial fibrillation on Eliquis, Takotsubo's cardiomyopathy, substance use disorder (heroin and methamphetamine), IDDM, HTN, viral meningitis, and stroke who was admitted for acute on chronic COPD exacerbation. #THEO on CKDIIIb #Hyperkalemia, resolved #Hyperphosphatemia, resolved Previously seen by nephrology team mid March for contrast induced THEO on CKD which resolved with fluids. Cr on admission 04/19 was 1.6 (estimated BL 1.2-1.4 on chart review), and had been steadily increasing, prompting nephrology consult. Ddx includes prerenal vs intrinsic. Prerenal THEO ddx: acute COPD exacerbation, continued use of substances, and/or dehydration, all resulting in decreased renal blood flow. Intrinsic THEO ddx: medication induced with frequent high dose steroids or antibiotics and/or substance use. No contrast studies performed. Ulytes consistent with prerenal THEO etiology. No signs of infection in UA (only 2+ blood with 86 RBC), UDS positive for benzos 04/23 CTAP shows large stool burden, no obstruction, large posterior L pelvic cyst 5.4 cm, and 12mm fat containing umbilical hernia. Pelvic US showed 2.9x2.1x3.1cm area of fundal fibroid degeneration and left ovarian simple cyst 7.1x5.8x5.4cm BUN initially decreased and Cr improved on diuretics, now BUN increased to 90 and Cr improved to 1.7. 04/26 BUN increased to 107 from 90, Cr 2.0 from 1.7 will require HD. 04/27 BUN decreased from 107 to 77, creatinine 1.9 from 2.0. Plan: -Recommend to stop IV Lasix 40 mg BID -Renally dose medications -Avoid nephrotoxins -daily CMP -hold apixaban for HD permanent catheter -HD on Sunday 04/29 -Patient more awake and alert on exam today, no intermittent somnolence. Much improved from prior, decreased methadone and buspirone. #Acute Hypoxic Respiratory Failure secondary to #COPD Exacerbation #COPD #Chest pain #Leukocytosis - uptrending #Lower Peripheral Edema #Atrial Fibrillation, rate controlled #History of Atrial Fibrillation with rvr #Hypertension #Chronic Hepatitis C #Type 2 Diabetes Mellitus, Insulin-Dependent #Hyperglycemia, likely secondary to steroids #Substance Use Disorder (Methamphetamine and Heroin) #Anxiety -Management per primary team Attending Provider Attestation/Addendum Patient seen and examined with resident physician Dr. Paniagua. Note reviewed, agree with findings and recommendations. Patient with a acute renal failure. Known to me from last admission with acute renal failure secondary to contrast nephropathy superimposed on CKD stage III. Currently with worsening azotemia. Suspect prerenal versus intrinsic renal failure. Urine lytes are consistent with prerenal azotemia. 04/26/2025 patient currently seen in telemetry. This morning she was acceptable however afternoon she was very somnolent. Not quite sure if it is related to methadone and BuSpar. Will adjust the dosage in the setting of THEO. BUN and creatinine continues to be significantly elevated. Cannot give fluids as patient clinically looks rather hypervolemic. Hold off on diuretics and fluids at this point. Patient seems to be in cardiorenal syndrome. Long conversation with the patient regarding renal replacement therapy and she agreed for dialysis. Will hold anticoagulation over the weekend and plan for permanent dialysis catheter and outpatient dialysis on Tuesday. Spoke to primary team. Still with mild abdominal discomfort. CT abdomen showed no acute pathology. Lactulose was given. BUN and creatinine trending down. LFTs normal, albumin 3.4 CT abdomen/pelvis showed a large left pelvic cyst. Patient agreed to go to rehab.Pelvic ultrasound showed large left ovarian cyst 7.1 cm. Ambulate with PT. patient needs to be sitting in the chair for outpatient dialysis. 04/27/2025 patient currently seen in the medical floor. Her [id number] and [id number] are visiting her. She is more alert and awake although still emotional. Patient with cardiorenal syndrome and still consistently short of breath and to avoid recurrent hospitalizations. Proceed with dialysis twice weekly. Permanent dialysis catheter will be placed on Tuesday. Labs have been reviewed. Not quite sure the etiology for her elevated white count. Potassium 5.4 and medically treated. Creatinine 1.9, BUN 77.
[2025-04-27] MEDS: INSULIN GLARGINE (Lantus) 5 UNIT/0.05 ML (PER 5 UNITS) 20 UNIT SC (20:04)
--- NOTE | 2025-04-27 22:10 | PC.NURSE ---
The patient conveyed her concerns to this content writer regarding the return of her debit card, which she entrusted to her daughter five days prior for the purpose of purchasing a cell phone for herself. The patient reported, I have not heard from her since I gave her my debit card, and she has been ignoring my phone calls. At this time, the patient does not intend to pursue legal action. Charge nurse notified will follow up with day team.
[2025-04-27] MEDS: NITROGLYCERIN 0.4 MG SUBL BTL #25 SL (23:33)
--- NOTE | 2025-04-27 23:36 | XR_ITS ---
Examination: AP chest single view Technique one AP portable semiupright chest single view Date and time: April 27, 2025 1150 hours INDICATIONS: Chest pain today. FINDINGS: Normal heart size No pneumonia or pulmonary edema Moderate osteopenia Stable small granuloma in the right lung noted on the April 21, 2025 exam and films dated to September 2024 IMPRESSION: No interval pneumonia or pulmonary edema
--- NOTE | 2025-04-27 23:36 | EKG_ITS ---
[facility] Test Date: 2025-04-27 Pat Name: DISHA ABRAHAM [facility] Oven Operator: PAULINE : 1960 Requested By: Conor Covarrubias Order Number: [id number] Reading MD: Conor Covarrubias Measurements Intervals [place] Rate: 93 P: 47 MN: 157 QRS: 46 QRSD: 94 T: 69 QT: 322 QTc: 402 Interpretive Statements SINUS RHYTHM Compared to ECG 04/21/2025 15:19:42 No significant changes /store/S0/[id number].pdf
[2025-04-27] MEDS: HYDROmorphone INJ 2 MG/ML VIAL 1 MG IVP (23:42)
--- NOTE | 2025-04-27 23:46 | XR_ITS ---
Examination: Abdomen AP single view Technique: AP portable supine abdomen, single view Exam date and time: April 27, 2025 1152 hours INDICATIONS: Epigastric pain today. FINDINGS: Large amount of stool throughout the entire colon No free air No dilated small bowel loops Significant osteopenia. IMPRESSION: Very large amounts of stool throughout the entire
[2025-04-27] MEDS: METOCLOPRAMIDE INJ 5 MG/ML VIAL 2 ML 10 MG IVP (23:51)
[2025-04-27 23:58] LABS: Lactate (Lactic Acid) 1.4 mMol/L (0.4-2.0)
[2025-04-28] VITALS (16 sets, daily range): BP systolic 101–128; BP diastolic 52–69; PULSE 66–99; RESP 13–24; TEMP 36.1–36.8; O2SAT 94–100
--- NOTE | 2025-04-28 00:13 | EVENTNT_ITS ---
Documentation for date of: 04/28/25 Event Note Event Note: Rapid response was called at 11:40pm for patient due to 07/05 substernal chest pain. On arrival, patient was alert and in significant discomfort but hemodynamically stable. Vital Signs: Stable at the time of assessment. Interventions/Orders: * EKG, chest X-ray, KUB * CMP, troponin, lactate, magnesium ? all ordered STAT * EKG reviewed: sinus rhythm, no ST elevations, T wave inversions present, no significant changes from prior EKG * Lactic acid was within normal limits * Remaining labs pending * Administered Dilaudid for pain control * On physical exam, pain localized more to epigastric region, so Reglan was given for symptomatic relief Initial concern for cardiac etiology of chest pain. EKG shows no acute ischemic changes and no significant interval changes from previous. Low concern for acute coronary syndrome (ACS) or CAD at this time. Epigastric localization with tenderness raises suspicion for gastrointestinal source of pain. Plan: * Continue monitoring vitals and symptoms closely * Review pending labs and imaging once available * Reassess for response to analgesia and antiemetics * Follow-up on troponin and other labs * Consider GI workup if symptoms persist or worsen ----- Plan discussed with attending physician Dr. Cornelio Canales MD PGY-1 Internal Medicine
--- NOTE | 2025-04-28 00:13 | PD.RESEVENT ---
Documentation for date of: 04/28/25 Event Note Event Note: Rapid response was called at 11:40pm for patient due to 10 substernal chest pain. On arrival, patient was alert and in significant discomfort but hemodynamically stable. Vital Signs: Stable at the time of assessment. Interventions/Orders: EKG, chest X-ray, KUB CMP, troponin, lactate, magnesium ? all ordered STAT EKG reviewed: sinus rhythm, no ST elevations, T wave inversions present, no significant changes from prior EKG Lactic acid was within normal limits Remaining labs pending Administered Dilaudid for pain control On physical exam, pain localized more to epigastric region, so Reglan was given for symptomatic relief Initial concern for cardiac etiology of chest pain. EKG shows no acute ischemic changes and no significant interval changes from previous. Low concern for acute coronary syndrome (ACS) or CAD at this time. Epigastric localization with tenderness raises suspicion for gastrointestinal source of pain. Plan: Continue monitoring vitals and symptoms closely Review pending labs and imaging once available Reassess for response to analgesia and antiemetics Follow-up on troponin and other labs Consider GI workup if symptoms persist or worsen ----- Plan discussed with attending physician Dr. Cornelio Canales MD PGY-1 Internal Medicine
[2025-04-28 00:25] LABS: Alanine Aminotransferase 23 U/L (10-49); Albumin, Serum 3.5 gm/dL (3.4-4.8); Albumin/Globulin Ratio 2.1 (1.2-2.2); Alkaline Phosphatase 45 U/L (46-116); Anion Gap 9 (7-16); Aspartate Amino Transferase 19 U/L (0-34); BUN/Creatinine Ratio 49 Ratio (12-20); Bilirubin,Total 0.4 mg/dL (0.3-1.2); Blood Urea Nitrogen 89 mg/dL (9-23); Calcium 8.5 mg/dL (8.3-10.6); Calcium (Corrected) 8.9 mg/dL (8.5-10.1); Carbon Dioxide 24.4 mMol/L (20.0-31.0); Chloride 102 mMol/L (98-107); Creatinine (Component) 1.8 mg/dL (0.6-1.3); Estimated Creatinine Clearance 31.5 mL/min (>60); Globulin 1.7 gm/dL (2.3-3.5); Glucose 103 mg/dL (74-106); Magnesium 2.2 mg/dL (1.6-2.6); Osmolality,Calculated 297 (275-295); Potassium 5.8 mMol/L (3.4-5.1); Sodium 135 mMol/L (136-145); Total Protein 5.2 gm/dL (5.7-8.2); Troponin I < 0.020 ng/mL (0.0-0.045); eGFR 31 See Note
[2025-04-28] MEDS: SOD POLYSTYRENE SULFON SUSP 15 GM/60 ML BTL 30 GM PO (01:18)
[2025-04-28] MEDS: DEXTROSE 50%-WATER INJ 50 ML SYRINGE IVP (01:19)
[2025-04-28] MEDS: INSULIN HUM REGULAR 1 UNIT/0.01 ML (PER UNIT) 5 UNIT IV (01:35)
[2025-04-28] MEDS: ALBUTEROL/IPRATROPIUM (Duoneb) RT SOL 3 ML NEBU INH ×5 (02:37→18:39)
[2025-04-28 06:10] LABS: Basophils # (Auto) 0.0 Thou/mm3 (0.0-0.2); Basophils % (Auto) 0 % (0-2.5); Eosinophils # (Auto) 0.1 Thou/mm3 (0.0-0.5); Eosinophils % (Auto) 0 % (0-10); Hematocrit 28.0 % (36.0-46.0); Hemoglobin 9.0 g/dL (12.0-16.0); Immature Granulocytes Auto 0.51 Thou/mm3 (0.00-0.00); Lymphocytes # (Auto) 2.8 Thou/mm3 (1.0-4.8); Lymphocytes % (Auto) 14 % (10-50); Mean Corpuscular HGB Conc 32.1 g/dl (31.0-37.0); Mean Corpuscular Hemoglobin 25.1 pg (25.0-35.0); Mean Corpuscular Volume 78 fL (80-100); Monocytes # (Auto) 1.8 Thou/mm3 (0.0-0.8); Monocytes % (Auto) 9 % (0-12); Neutrophils # (Auto) 14.4 Thou/mm3 (1.8-7.7); Neutrophils % (Auto) 73 % (37-80); Nucleated Red Blood Cell # 0.00 Thou/mm3 (0.00-0.00); Nucleated Red Blood Cell % 0 /100 WBC (0); Platelet Count 127 Thou/mm3 (140-440); RDW Standard Deviation 40.9 fL (36.4-46.3); Red Blood Count 3.59 Miln/mm3 (4.00-5.20); White Blood Count 19.6 Thou/mm3 (3.6-11.0)
[2025-04-28] MEDS: FLUTICASONE/SALMETEROL 250/50 14 DOSE INH 1 PUFF INH ×2 (06:37→18:39)
[2025-04-28 06:41] LABS: Alanine Aminotransferase 23 U/L (10-49); Albumin, Serum 3.5 gm/dL (3.4-4.8); Albumin/Globulin Ratio 2.1 (1.2-2.2); Alkaline Phosphatase 47 U/L (46-116); Anion Gap 13 (7-16); Aspartate Amino Transferase 23 U/L (0-34); BUN/Creatinine Ratio 56 Ratio (12-20); Bilirubin,Total 0.6 mg/dL (0.3-1.2); Blood Urea Nitrogen 89 mg/dL (9-23); Calcium 8.8 mg/dL (8.3-10.6); Calcium (Corrected) 9.2 mg/dL (8.5-10.1); Carbon Dioxide 23.2 mMol/L (20.0-31.0); Chloride 103 mMol/L (98-107); Creatinine (Component) 1.6 mg/dL (0.6-1.3); Estimated Creatinine Clearance 37.0 mL/min (>60); Globulin 1.7 gm/dL (2.3-3.5); Magnesium 2.6 mg/dL (1.6-2.6); Osmolality,Calculated 301 (275-295); Phosphorous 3.6 mg/dL (2.4-5.1); Potassium 5.0 mMol/L (3.4-5.1); Sodium 139 mMol/L (136-145); Total Protein 5.2 gm/dL (5.7-8.2); eGFR 36 See Note
[2025-04-28 06:46] LABS: Glucose 45 mg/dL (74-106)
[2025-04-28] MEDS: DEXTROSE 50%-WATER INJ 50 ML SYRINGE IV (06:52)
[2025-04-28] MEDS: DILTIAZEM CD 180 MG CAPCR PO (08:44)
[2025-04-28] MEDS: PANTOPRAZOLE 40 MG TABLET PO (08:50)
[2025-04-28] MEDS: METHADONE HCL 10 MG TABLET 75 MG PO (08:52)
[2025-04-28] MEDS: NICOTINE PATCH 21 MG/24 HR PATCH.TD24 TOP (08:53)
--- NOTE | 2025-04-28 10:46 | ESPR_ITS ---
Documentation for date of: 04/28/25 Subjective Subjective Interval history: Ms. Diaz is a 63-year-old female with past medical history of COPD on 2 L home oxygen, A-fib, hypertension, CKD stage IIIb, [id number] type 2 diabetes, polysubstance use disorder presents to the ED on 04/18 with increased episodes of shortness of breath. Patient states that ever since being discharged on 04/06 for COPD exacerbation she was doing okay; however, tonight she started developing increased level of shortness of breath. Patient states that she tried using her home inhalers including albuterol but those did not help her symptoms. Patient denies having any sick contacts; however, she is reporting some sore throat which has worsened in the past several days. Patient otherwise denies any fever/chills or any other concerning cardiac symptoms at this time. Nephrology consulted for management of THEO. Home medications included amlodipine, aspirin, BuSpar, clonidine, Valium, Eliquis, Trelegy, Lasix, hydralazine, Basaglar, DuoNeb, lactulose, lisinopril, meclizine, methadone, metolazone, metoprolol, Aldactone 04/24/2025: Patient seen and examined at bedside. Reports intense, constant pain across lower back and at R abdomen. Breathing slightly improved. BUN decreased to 87, Cr improved at 1.8. Good urine output of 4.7L over last 24h. Recommend to continue IV lasix 40 mg BID with albumin 25 g BID for 3 days (04/23- ). 04/25/2025: Patient seen and examined at bedside. Abdominal pain and back pain are mild and better controlled. Much improved shortness of breath. BUN increased 90, and recommend to stop diuretics. Cr improved from 1.8 to 1.7. 04/26/2025: Patient seen and examined at bedside. pain is better controlled, and less shortness of breath. BUN 107, Cr 2.0. Urine output 2.1L. Plan for HD via perm cath on Tuesday04/29/25, CTM BUN, pt may require vas catheter over the weekend if continues to increase. Concern for somnolence on exam later today, query if somnolence is 2/2 high methadone and buspar doses that patient takes chronically. 04/27/2025: Patient seen and examined at bedside. Patient has decreased somnolence compared to exam yesterday. Patient's mother in law seen at bedside visiting. BUN 77 from 107, creatinine 1.9 from 2.0 K 5.4 from 5.3. Continue plan for permacatheter on 04/29/2025. No HD today 04/28/2025 patient currently seen in telemetry. She seems to be more sleepy. Receiving high-dose methadone. Baclofen held. Urine output 1300 mL. Medications/labs reviewed. Patient with recurrent episodes of congestive heart failure exacerbation and decided to proceed with dialysis to prevent recurrent hospitalizations. She agreed. Diuretics were held. Anticoagulation held. She will receive dialysis catheter tomorrow. Of note her white count is elevated at 19.6. No source identified. Hemoglobin 9. Sodium 139, potassium 5, BUN 89, creatinine 1.6, glucose 45, calcium 9.2, magnesium is 2.6, LFTs normal, albumin 3.5. Abdominal x-ray showed constipation. Review of Systems Review of Systems Narrative Review of Systems: CONSTITUTIONAL: Patient denies any fever, chills. HEENT: Denies any visual disturbances or hearing problems. CARDIOVASCULAR: Patient denies any chest pain. c/o shortness of breath, swelling in the lower extremities. PULMONARY: Patient c/o shortness of breath, cough. GASTROINTESTINAL: Patient denies any abdominal pain, constipation, nausea, vomiting, diarrhea. GENITOURINARY: Patient denies any urinary symptoms of burning or frequency or hematuria, denies any form in the urine. SKIN: Denies any rash. MUSCULOSKELETAL: c/o LBP, joint pains. NEUROLOGICAL: Patient on and off goes into somnolence.. PSYCHIATRIC: admits depression or anxiety. LYMPHATICS : No lymphadenopathy Exam Vital Signs Temp Pulse Resp BP Pulse Ox O2 Del Method O2 Flow Rate 36.1 C 81 20 104/52 L 98 Nasal Cannula 2 04/28/25 12:00 04/28/25 14:40 04/28/25 14:35 04/28/25 14:40 04/28/25 14:35 04/28/25 12:00 04/28/25 14:35 Narrative Exam GENERAL APPEARANCE: Patient currently seen in telemetry. NECK: Neck supple, no JVD or bruit CARDIOVASCULAR: Heart regular, + murmurs LUNGS/CHEST: Bilateral rhonchi and wheezing ABDOMEN: Soft, nontender, nondistended. No masses. Normal bowel sounds. EXTREMITIES: 1+ edema in the lower extremities SKIN: Skin exam normal without any rashes MUSCULOSKELETAL: In bed PSYCHIATRIC: + Emotional LYMPHATICS: No lymphadenopathy noted NEUROLOGICAL : Patient is sleepy although arousable Objective Labs 04/28/25 05:02 04/28/25 05:02 Labs: Laboratory Results - last 24 hr 04/27/25 04/28/25 23:50 05:02 WBC 19.6 H RBC 3.59 L Hgb 9.0 L Hct 28.0 L MCV 78 L MCH 25.1 MCHC 32.1 RDW Std Deviation 40.9 Plt Count 127 L D Neut % (Auto) 73 Lymph % (Auto) 14 [place] % (Auto) 9 Eos % (Auto) 0 Baso % (Auto) 0 Neut # (Auto) 14.4 H Lymph # (Auto) 2.8 [place] # (Auto) 1.8 H Eos # (Auto) 0.1 Baso # (Auto) 0.0 Immature Gran # (Auto) 0.51 H Absolute Nucleated RBC 0.00 Immature Gran % 3 H Nucleated RBC % 0 Sodium 135 L 139 Potassium 5.8 H 5.0 D Chloride 102 103 Carbon Dioxide 24.4 23.2 Anion Gap 9 13 BUN 89 H 89 H Creatinine 1.8 H 1.6 H Estim Creat Clear Calc 31.5 L 37.0 L eGFR 31 L 36 L BUN/Creatinine Ratio 49 H 56 H Glucose 103 45 L* D Calculated Osmolality 297 H 301 H Lactic Acid 1.4 Calcium 8.5 8.8 Corrected Calcium 8.9 9.2 Phosphorus 3.6 Magnesium 2.2 2.6 Total Bilirubin 0.4 0.6 AST 19 23 ALT 23 23 Alkaline Phosphatase 45 L 47 Troponin I < 0.020 Total Protein 5.2 L 5.2 L Albumin 3.5 3.5 Globulin 1.7 L 1.7 L Albumin/Globulin Ratio 2.1 2.1 ABG Interpretation ABG results: 04/18/25 20:40 VBG pH 7.47 VBG pCO2 36 VBG pO2 72 H VBG Base Excess 2 Assessment & Plan Additional Assessment & Plan Additional Plan: Christina Diaz is a 64-year-old F with a PMH of ESBL UTI, COPD on 2-3 L at home, atrial fibrillation on Eliquis, Takotsubo's cardiomyopathy, substance use disorder (heroin and methamphetamine), IDDM, HTN, viral meningitis, and stroke who was admitted for acute on chronic COPD and CHF exacerbation. #THEO on CKDIIIb--patient with cardiorenal syndrome and multiple episodes of CHF exacerbation and hospitalizations. To prevent recurrent hospitalizations- decided to proceed with twice weekly dialysis. Had a long conversation with the patient who agreed. Anticoagulation held. Will need a permacath placement and dialysis tomorrow. PPD, hep panel ordered. #Acute Hypoxic Respiratory Failure secondary to #COPD// CHF Exacerbation #Leukocytosis - uptrending == no source identified #Atrial Fibrillation, rate controlled #Hypertension --blood pressure on the lower side. Held 3 medications #Chronic Hepatitis C #Type 2 Diabetes Mellitus, Insulin-Dependent #Substance Use Disorder (Methamphetamine and Heroin) #Anxiety/depression -Management per primary team
[2025-04-28] MEDS: INSULIN GLARGINE (Lantus) 5 UNIT/0.05 ML (PER 5 UNITS) 40 UNIT SC (11:07)
[2025-04-28] MEDS: INSULIN LISPRO (AdmeLOG) 1 UNIT/0.01 ML UNIT SC ×3 (11:38→21:30)
--- NOTE | 2025-04-28 14:44 | ESPR_ITS ---
<Statement entered by Ashok Butterfield MD - 05/08/25 14:32> I reviewed above note and agree with findings and plans. I have also personally examined the patient with medicine team and went over assessment and plan with medical team including campus recruiting intern and resident physician. Documentation for date of: 04/28/25 Subjective Subjective Interval history: Overnight team reported patient had a rapid response for 10 out of 10 substernal chest pain. EKG show no acute ST or T wave changes and troponin levels within normal limits. Patient seen and examined at bedside this morning. Patient is awake, alert and oriented to time place and self. Patient is cooperative and there is responding to questions states that she has generalized pain everywhere worse in her legs bilaterally. Vitals are stable, patient is saturating 98% on 4 L of oxygen via nasal cannula. Labs are reviewed and are stable with the exception of creatinine 1.6, BUN 89, GFR 36. Blood glucose this morning labs were 48 patient did receive D50 and repeat fingerstick glucose is within normal limits. Patient's glargine is decreased to 40 units when we will continue 20 units at bedtime. Will continue to hold lisinopril 40 mg and spironolactone. Patient is schedule to get permanent dialysis cath tomorrow and will undergo dialysis session as well. will continue to monitor while waiting for SNF placement. Exam Vital Signs Temp Pulse Resp BP Pulse Ox O2 Del Method O2 Flow Rate 97.0 F 81 20 104/52 L 98 Nasal Cannula 2 04/28/25 12:00 04/28/25 14:40 04/28/25 14:35 04/28/25 14:40 04/28/25 14:35 04/28/25 12:00 04/28/25 14:35 Narrative Exam GENERAL: Awake and alert x3 obese female, cooperative, Not in acute distress NEURO: no focal neurological deficits noted HEENT: Atraumatic, Normocephalic. mucous membranes moist. Eyes open, symmetrical, & clear HEART: Normal Heart Sounds LUNGS: Clear to auscultation with no wheezing or crackles. ABDOMEN: soft, non-distended, non-tender, bowel sounds heard, no guarding or rebound tenderness SKIN: No Rash or ecchymoses EXTREMITIES: No edema, tenderness is noted in LE, able to move all 4 extremities, pedal pulses palpated Objective Labs 04/28/25 05:02 04/28/25 05:02 Labs: Laboratory Results - last 24 hr 04/27/25 04/28/25 23:50 05:02 WBC 19.6 H RBC 3.59 L Hgb 9.0 L Hct 28.0 L MCV 78 L MCH 25.1 MCHC 32.1 RDW Std Deviation 40.9 Plt Count 127 L D Neut % (Auto) 73 Lymph % (Auto) 14 [place] % (Auto) 9 Eos % (Auto) 0 Baso % (Auto) 0 Neut # (Auto) 14.4 H Lymph # (Auto) 2.8 [place] # (Auto) 1.8 H Eos # (Auto) 0.1 Baso # (Auto) 0.0 Immature Gran # (Auto) 0.51 H Absolute Nucleated RBC 0.00 Immature Gran % 3 H Nucleated RBC % 0 Sodium 135 L 139 Potassium 5.8 H 5.0 D Chloride 102 103 Carbon Dioxide 24.4 23.2 Anion Gap 9 13 BUN 89 H 89 H Creatinine 1.8 H 1.6 H Estim Creat Clear Calc 31.5 L 37.0 L eGFR 31 L 36 L BUN/Creatinine Ratio 49 H 56 H Glucose 103 45 L* D Calculated Osmolality 297 H 301 H Lactic Acid 1.4 Calcium 8.5 8.8 Corrected Calcium 8.9 9.2 Phosphorus 3.6 Magnesium 2.2 2.6 Total Bilirubin 0.4 0.6 AST 19 23 ALT 23 23 Alkaline Phosphatase 45 L 47 Troponin I < 0.020 Total Protein 5.2 L 5.2 L Albumin 3.5 3.5 Globulin 1.7 L 1.7 L Albumin/Globulin Ratio 2.1 2.1 ABG Interpretation ABG results: 04/18/25 20:40 VBG pH 7.47 VBG pCO2 36 VBG pO2 72 H VBG Base Excess 2 Quality Measures Quality Measures VTE prophylaxis Assessment & Plan Assessment Current Active Medications: Generic Name Dose Route Start Last Admin Trade Name Freq PRN Reason Stop Dose Admin Acetaminophen 650 mg 04/19/25 07:42 04/25/25 07:38 Acetaminophen 325 Mg Tablet PO 05/18/25 22:12 650 mg Q6H PRN Administration Mild Pain 1-3 or fever >100.1 Albuterol/Ipratropium 3 ml 04/22/25 11:00 04/28/25 14:32 Albuterol/Ipratropium (Duoneb) Rt Blanca 3 Ml Nebu INH 05/22/25 10:59 3 ml Q4HRRT KIP Administration Amlodipine Besylate 10 mg 04/25/25 09:00 04/28/25 08:50 Amlodipine Besylate 5 Mg Tablet PO 05/25/25 08:59 10 mg QDAY KIP Administration Apixaban 5 mg 04/19/25 09:00 04/26/25 08:47 Apixaban 2.5 Mg Tablet PO 05/19/25 08:59 5 mg BID KIP Administration Aspirin 81 mg 04/19/25 09:00 04/27/25 09:03 Aspirin Ec 81 Mg Tabec PO 05/19/25 08:59 81 mg QDAY KIP Administration Baclofen 10 mg 04/24/25 11:00 04/26/25 20:49 Baclofen 10 Mg Tablet PO 05/24/25 10:59 10 mg BID KIP Administration Buspirone HCl 5 mg 04/19/25 09:00 04/26/25 08:45 Buspirone Hcl 5 Mg Tablet PO 05/19/25 08:59 5 mg QDAY KIP Administration Clonidine 0.1 mg 04/25/25 09:00 04/28/25 08:50 Clonidine Hcl 0.1 Mg Tablet PO 05/25/25 08:59 0.1 mg BID KIP Administration Methadone 100 Mg 0 ea 04/19/25 14:00 04/24/25 09:51 Cups PO 05/19/25 13:59 1 bottle DAILY KIP Administration Protocol Dextrose 25 ml 04/18/25 22:19 Dextrose 50%-Water Inj 50 Ml Syringe IV 05/18/25 22:18 Q15MIN PRN BG 50-70 responsive npo pt Dextrose 50 ml 04/18/25 22:19 04/28/25 06:52 Dextrose 50%-Water Inj 50 Ml Syringe IV 05/18/25 22:18 50 ml Q15MIN PRN Administration BG <50 OR BG <70 & pt unresponsive Diltiazem HCl 180 mg 04/20/25 09:00 04/28/25 08:44 Diltiazem Cd 180 Mg Capcr PO 05/20/25 08:59 180 mg QDAY KIP Administration Glucagon 1 mg 04/18/25 22:19 Glucagon Inj 1 Mg Vial IM Q15MIN PRN BG <70, and no IV access Hydralazine HCl 100 mg 04/28/25 14:39 Hydralazine Hcl 25 Mg Tablet PO 05/19/25 08:44 TID KIP Insulin Glargine 20 unit 04/24/25 21:00 04/27/25 20:04 Insulin Glargine (Lantus) 5 Unit/0.05 Ml (Per 5 Units) SC 05/24/25 20:59 20 unit HS KIP Administration Insulin Glargine 40 unit 04/28/25 09:00 04/28/25 11:07 Insulin Glargine (Lantus) 5 Unit/0.05 Ml (Per 5 Units) SC 05/28/25 08:59 40 unit QDAY KIP Administration Insulin Human Lispro 0 unit 04/19/25 21:00 04/28/25 11:38 Insulin Lispro (Admelog) 1 Unit/0.01 Ml Unit SC 05/19/25 20:59 2 unit ACHS KIP Administration Protocol Lactulose 10 gm 04/23/25 14:15 Lactulose Syrup 20 Gm/30 Ml Udc PO 05/23/25 14:14 X1 PRN CONSTIPATION Protocol Lidocaine 1 patch 04/22/25 16:48 04/24/25 04:34 Lidocaine 5% 1 Patch TOP 05/22/25 16:47 1 patch DAILY PRN Administration LOCALIZED PAIN Lisinopril 40 mg 04/25/25 09:00 04/26/25 08:45 Lisinopril 20 Mg Tablet PO 05/25/25 08:59 40 mg QDAY KIP Administration Methadone HCl 75 mg 04/27/25 09:00 04/28/25 08:52 Methadone Hcl 10 Mg Tablet PO 05/02/25 08:59 75 mg QDAY KIP Administration Methylprednisolone Sodium Succinate 20 mg 04/27/25 09:00 04/28/25 09:02 Methylprednisolone Sod Succ 40 Mg Vial IVP 05/04/25 08:59 20 mg QDAY KIP Administration Nicotine 21 mg 04/21/25 09:00 04/28/25 08:53 Nicotine Patch 21 Mg/24 Hr Patch.Td24 TOP 05/21/25 08:59 21 mg QDAY KIP Administration Nitroglycerin 0.4 mg 04/20/25 08:14 04/27/25 23:33 Nitroglycerin 0.4 Mg Subl Btl #25 SL 0.4 mg Q5MIN PRN Administration CHEST PAIN Ondansetron HCl 4 mg 04/18/25 22:13 04/22/25 01:40 Ondansetron Inj 2 Mg/Ml Inj 2 Ml IVP 05/18/25 22:12 4 mg Q6H PRN Administration NAUSEA OR VOMITING Protocol Pantoprazole Sodium 40 mg 04/24/25 09:00 04/28/25 08:50 Pantoprazole 40 Mg Tablet PO 05/24/25 08:59 40 mg QDAY KIP Administration Protocol Fluticasone/Salmeterol 1 puff 04/19/25 07:00 04/28/25 06:37 Fluticasone/Salmeterol 250/50 14 Dose Inh INH 05/19/25 06:59 1 puff BIDRT KIP Administration Sennosides 1 tab 04/18/25 22:13 Senna Tablet PO 05/18/25 22:12 QDAY PRN constipation Protocol Sodium Chloride 3 ml 04/21/25 10:39 04/21/25 11:03 Sodium Chloride Rt [place]anca 0.9% 3 Ml Nebu INH 05/21/25 10:38 3 ml PRN PRN Administration SOLN Spironolactone 50 mg 04/19/25 09:00 04/19/25 09:53 Spironolactone 25 Mg Tablet PO 05/19/25 08:59 50 mg QDAY KIP Administration Plan Mrs. Diaz is a 64 year old female with a history of COPD (2-3L home O2), A-fib on Eliquis, hypertension, CKD stage IIIb, T2DM, polysubstance use disorder, history of ESBL UTI, Takotsubo cardiomyopathy [diagnosed 2023] who came for worsening shortness of breath. Patient was admitted for management of acute hypoxic failure due to COPD. #THEO on CKD stage IIIb, #Uremia #CKD Stage IIIb Patient has a history of CKD with worsening kidney function with worsening mentation -Per nephrology due to repeatedly increase in BUN and worsening mentation (pt is extremely somnolent and barely arousable to painful stimuli), will plan for dialysis on tuesday (04/29), will order permanent dialysis cath for tuesday and hold home aspirin and eliquis. #Acute on chronic hypoxic failure due to #COPD exacerbation #Nicotine Use Disorder/Current Smoker Patient endorsed worsening of shortness of breath and chest pain that led to her seeking treatment in the ED on 04/18/2025. Patient has been using her Trelegy inhaler once a day and her albuterol inhaler 4 times a day after her recent discharge on 04/06. Home medications were providing minimal relief. Patient had a light yellow sputum production. Due to the patient's COPD exacerbation history, this is most likely another COPD exacerbation. Patient's acute episode of dyspnea meets criteria for COPD exacerbation. Chest x-ray 04/18 negative for acute findings, repeat chest x-ray 04/21 also negative for acute findings VBG 04/18 pH 7.47, PCO2 36, PO2 72, O2 sat 97% ? Maintain patient's oxygen saturation between 88% and 92% given history of COPD ? 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 Continue methylprednisolone 20 mg IVP Qday ? Continue fluticasone/salmeterol 1 puff twice daily RT ? Continue to monitor patient's oxygen status ? Recommend CT chest scan in 3 to 6 months to follow-up on CTA chest on 04/03 ? Coccidioides panel not ordered due to recent negative on 04/04/2025 ? Discontinued ceftriaxone due to low suspicion of PNA given negative chest x- ray findings x 2 #Leukocytosis 2/2 steroid use -No signs of active infections, pt has remained afebrile, WBC count is with in normal limits. Patient was producing light yellow sputum via cough and has a history of green mucus production. Patient is more susceptible to infection due to history of COPD and frequent steroid use. Viral respiratory panel negative 04/18, strep group A negative 04/18. WBC noted to be elevated throughout current admission, possibly due to increased steroid use to manage acute hypoxic failure due to COPD exacerbation. ? Patient completed azithromycin 500 mg 5 day course [04/19-04/23] ? Will continue to monitor with daily CBC #Constipation #Low lumbar back pain #Abdominal pain #Pancreatitis r/o Patient had abdominal pain 04/22 and 04/23. CT abdomen pelvis without contrast ordered due to concerns for possible acute process such as appendicitis. CT abdomen pelvis 04/23 negative for acute concerns or bowel obstructions, but large stool burden noted. Patient is on lactulose 10g as needed for constipation at home, potentially related to history of opioid use. Patient has low lumbar back pain that started 04/23. CT abdomen pelvis done on the same day that her low lumbar back pain started was negative for acute processes in her spine, with the only abnormality noted as advanced degenerative disc disease in L4-L5 and L5-S1. Very low suspicion for acute causes of abdominal and back pain given highly inconsistent pattern of pain. Further imaging highly unlikely to change current management of care. ? Restarted home lactulose 10 g as needed ? Ordered lactulose 30 gm one-time dose on 04/24 ? Will order lipase to rule out possible pancreatitis ? Lipase 04/25: 48, within normal limits ? Ordered lidocaine patch ? 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 Noncardiac etiology suspected. Troponins negative on 04/18 and 04/20. EKG 04/21 negative for acute ischemic changes. ? Will continue to anticipate improvement and worsening of chest pain depending on respiratory status, suspect that treatment of COPD will resolve chest pain ? Will continue patient's Eliquis (on hold for permanent dialysis cath placement) ? Pain relief as indicated #Lower extremity edema (resolving) #History of Takatsubo cardiomyopathy [2023] #Right upper extremity edema #Right upper extremity thrombophlebitis r/o Patient presented with lower peripheral edema, had BNP of 116 on 04/18, and was given IV Lasix 40 mg one-time dose on 04/18. TTE showed normal left ventricular size and function with EF 60%, no wall motion abnormalities noted. Patient noted to have right upper extremity edema on 04/24. Given patient's history of peripheral IV on right arm lack of pain and erythema, and Eliquis use, there is low suspicion for thrombophlebitis. ? Will continue to monitor fluid status ? Received 1L NS on 04/22 per Nephrology recommendations ? Started patient on Lasix 40 mg IV twice daily with albumin 25 mg/kg twice daily schedule 30 minutes before Lasix per recommendations by Nephrology ? Discontinued Lasix 40 mg IV 04/25 and ordered glycopyrrolate 2 mg one-time dose per nephrology recommendations ? Ordered right upper extremity ultrasound to rule out right upper extremity thrombophlebitis ? RUE ultrasound 04/24 negative for thrombus #Atrial fibrilation with rate control #History of A-fib with RVR Patient has a history of atrial fibrillation with RVR. EKG 04/21 shows sinus rhythm. ? Continue diltiazem 180 mg daily ? Willl hold home Eliquis 5 mg p.o. twice daily for dialysis cath insertion on tuesday ? Continue aspirin 81 mg daily ? Continue to hold home metoprolol #Primary Hypertension Patient has a history of hypertension on spironolactone, metazalone, lisinopril, and hydralazine at home. Patient presented to ED with BP of 137/82. ? Continue hydralazine 100 mg p.o. 3 times daily (hold if SBP <110) ? Hold spironolactone 50 mg p.o. daily ? Continue diltiazem 180 mg p.o. daily ? Hold home lisinopril 40 mg daily, restarting home clonidine 0.1 mg twice daily, and restarting home amlodipine 10 mg daily #Type 2 diabetes mellitus, dependent on insulin #Hyperglycemia, likely due to steroid use ? Will continue to monitor fasting glucose ? Continue intermediate sliding scale ? Continue glargine 45 units in the morning ? Discontinued insulin lispro 12 units 3 times daily (with meals) ? Ordered glargine 20 units to be given at night ? Educated the patient on not eating food from outside the hospital ? Obtain FreeStyle Dante for patient to more closely monitor blood glucose #Chronic hepatitis C infection Patient tested positive for hepatitis C antibody on 04/21/2025 and 02/18/2024. ? Will continue to monitor with daily CMP -Pt will need to follow up outpatient with infectious disease specialist for further work up and treament options #Polysubstance use disorder (methamephetamine and heroin) Patient has history of methamphetamine and heroin abuse. On methadone outpatient. ? Will decrease methadone to 75 mg p.o. daily #Anxiety Patient has history of anxiety. ? Will hold patient's home BuSpar 5 mg p.o. daily and diazepam 5 mg p.o. twice daily PRN due to increased somnolence - Hold Baclofen Health Maintenance Disposition: Telemetry, pending permanent dialysis cath on tuesday DVT Prophylaxis: Eliquis-Being Held GI Prophylaxis: Pantoprazole Diet: Cardiac diet with consistent low carb Lines: Peripheral IV Antibiotics: N/A Code Status: FULL Assessment and plan discussed with my attending physician Dr. Scout Ghotra (PGY-2)- Internal medicine resident
[2025-04-28] MEDS: ONDANSETRON INJ 2 MG/ML INJ 2 ML 4 MG IVP (17:23)
[2025-04-28] MEDS: INSULIN GLARGINE (Lantus) 5 UNIT/0.05 ML (PER 5 UNITS) 20 UNIT SC (21:34)
[2025-04-29] VITALS (37 sets, daily range): BP systolic 94–164; BP diastolic 54–97; PULSE 64–85; RESP 12–21; TEMP 36.1–36.8; O2SAT 93–100; BMI 13.0; BMI 29.6
[2025-04-29] MEDS: ALBUTEROL/IPRATROPIUM (Duoneb) RT SOL 3 ML NEBU INH ×5 (00:04→23:42)
[2025-04-29] MEDS: DEXTROSE 50%-WATER INJ 50 ML SYRINGE 25 ML IV (05:09)
--- NOTE | 2025-04-29 05:14 | PC.NURSE ---
Addendum entered by Veronica Pro RN 04/29/25 05:33: WAS ABLE ADMINISTER ONLY 10 ML OUT OF 25 ML OF D50 THEN STOPPED D/T PAIN. Original Note: DR BIRD NOTIFIED OF PT BS AT 67, ASYMPTOMATIC. PT WITH ONLY 24G IV. PAIN UPON ADMINISTERING IV D50 ONLY. IVF WITH NO PAIN. 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 PT NPO FOR PERM CATH. PER , OK TO GIVE 1 CUP OF APPLE JUICE.
[2025-04-29] MEDS: DEXTROSE 5%-WATER 1,000 ML 80 ML IV (06:21)
[2025-04-29] MEDS: FLUTICASONE/SALMETEROL 250/50 14 DOSE INH 1 PUFF INH (06:26)
[2025-04-29] MEDS: ACETAMINOPHEN 325 MG TABLET 650 MG PO ×2 (06:28→21:09)
[2025-04-29 06:47] LABS: Alanine Aminotransferase 30 U/L (10-49); Albumin, Serum 3.4 gm/dL (3.4-4.8); Albumin/Globulin Ratio 2.1 (1.2-2.2); Alkaline Phosphatase 40 U/L (46-116); Anion Gap 9 (7-16); Aspartate Amino Transferase 28 U/L (0-34); BUN/Creatinine Ratio 45 Ratio (12-20); Bilirubin,Total 0.4 mg/dL (0.3-1.2); Blood Urea Nitrogen 81 mg/dL (9-23); Calcium 8.9 mg/dL (8.3-10.6); Calcium (Corrected) 9.4 mg/dL (8.5-10.1); Carbon Dioxide 27.4 mMol/L (20.0-31.0); Chloride 103 mMol/L (98-107); Creatinine (Component) 1.8 mg/dL (0.6-1.3); Estimated Creatinine Clearance 32.9 mL/min (>60); Globulin 1.6 gm/dL (2.3-3.5); Glucose 74 mg/dL (74-106); Magnesium 2.7 mg/dL (1.6-2.6); Osmolality,Calculated 300 (275-295); Phosphorous 4.3 mg/dL (2.4-5.1); Potassium 5.0 mMol/L (3.4-5.1); Sodium 139 mMol/L (136-145); Total Protein 5.0 gm/dL (5.7-8.2); eGFR 31 See Note
[2025-04-29 06:50] LABS: Hepatitis A Antibody IgM Non Reactive (Non React); Hepatitis B Core Antibody IgM Non Reactive (Non React); Hepatitis B Surface Antigen Non Reactive (Non React); Hepatitis C Antibody Reactive (Non React)
--- NOTE | 2025-04-29 07:35 | PD.RESPRO ---
Documentation for date of: 04/29/25 Subjective Subjective Interval history: Ms. Diaz is a 63-year-old female with past medical history of COPD on 2 L home oxygen, A-fib, hypertension, CKD stage IIIb, [id number] type 2 diabetes, polysubstance use disorder presents to the ED on 04/18 with increased episodes of shortness of breath. Patient states that ever since being discharged on 04/06 for COPD exacerbation she was doing okay; however, tonight she started developing increased level of shortness of breath. Patient states that she tried using her home inhalers including albuterol but those did not help her symptoms. Patient denies having any sick contacts; however, she is reporting some sore throat which has worsened in the past several days. Patient otherwise denies any fever/chills or any other concerning cardiac symptoms at this time. Nephrology consulted for management of THEO. Home medications included amlodipine, aspirin, BuSpar, clonidine, Valium, Eliquis, Trelegy, Lasix, hydralazine, Basaglar, DuoNeb, lactulose, lisinopril, meclizine, methadone, metolazone, metoprolol, Aldactone 04/24/2025: Patient seen and examined at bedside. Reports intense, constant pain across lower back and at R abdomen. Breathing slightly improved. BUN decreased to 87, Cr improved at 1.8. Good urine output of 4.7L over last 24h. Recommend to continue IV lasix 40 mg BID with albumin 25 g BID for 3 days (04/23- ). 04/25/2025: Patient seen and examined at bedside. Abdominal pain and back pain are mild and better controlled. Much improved shortness of breath. BUN increased 90, and recommend to stop diuretics. Cr improved from 1.8 to 1.7. 04/26/2025: Patient seen and examined at bedside. pain is better controlled, and less shortness of breath. BUN 107, Cr 2.0. Urine output 2.1L. Plan for HD via perm cath on Tuesday04/29/25, CTM BUN, pt may require vas catheter over the weekend if continues to increase. Concern for somnolence on exam later today, query if somnolence is 2/2 high methadone and buspar doses that patient takes chronically. 04/27/2025: Patient seen and examined at bedside. Patient has decreased somnolence compared to exam yesterday. Patient's mother in law seen at bedside visiting. BUN 77 from 107, creatinine 1.9 from 2.0 K 5.4 from 5.3. Continue plan for permacatheter on 04/29/2025. No HD today 04/28/2025 patient currently seen in telemetry. She seems to be more sleepy. Receiving high-dose methadone. Baclofen held. Urine output 1300 mL. Medications/labs reviewed. Patient with recurrent episodes of congestive heart failure exacerbation and decided to proceed with dialysis to prevent recurrent hospitalizations. She agreed. Diuretics were held. Anticoagulation held. She will receive dialysis catheter tomorrow. Of note her white count is elevated at 19.6. No source identified. Hemoglobin 9. Sodium 139, potassium 5, BUN 89, creatinine 1.6, glucose 45, calcium 9.2, magnesium is 2.6, LFTs normal, albumin 3.5. Abdominal x-ray showed constipation. 04/29/2025 patient seen and examined at [facility], pt is awake and interactive. On exam pt has wet lungs, crackles and rales bilaterally,UOP 1200. medications and labs reviewed. anticoagulation held pending HD catheter placement today, pt expresses some anxiety surrounding the placement of catheter. WBC downtrending 15.7 from 19.6. query 2/2 steroid use. Cr 1.6 from 1.6, BUN 81 from 89. Plan for HD today following cath placement. start Chest PT to help with expectoration of sputum. Exam Vital Signs Temp Pulse Resp BP Pulse Ox O2 Del Method O2 Flow Rate 96.9 F 71 20 129/96 H 99 Nasal Cannula 2 04/29/25 04:00 04/29/25 06:29 04/29/25 06:29 04/29/25 04:00 04/29/25 06:29 04/29/25 00:00 04/29/25 06:29 Narrative Exam CONSTITUTIONAL: Patient denies any fever, chills. HEENT: Denies any visual disturbances or hearing problems. CARDIOVASCULAR: Patient denies any chest pain. c/o shortness of breath, swelling in the lower extremities. PULMONARY: Patient c/o shortness of breath, cough, crackles and rales on exam, GASTROINTESTINAL: Patient denies any abdominal pain, constipation, nausea, vomiting, diarrhea. GENITOURINARY: Patient denies any urinary symptoms of burning or frequency or hematuria, denies any form in the urine. SKIN: Denies any rash. MUSCULOSKELETAL: c/o LBP, joint pains. NEUROLOGICAL: pt awake and alert during exam, no intermittent sleepiness. PSYCHIATRIC: admits depression or anxiety. LYMPHATICS : No lymphadenopathy Objective Labs 04/29/25 07:49 04/30/25 06:58 Labs: Laboratory Results - last 24 hr 04/27/25 04/29/25 05:33 05:20 Sodium 139 Potassium 5.0 Chloride 103 Carbon Dioxide 27.4 Anion Gap 9 BUN 81 H Creatinine 1.8 H Estim Creat Clear Calc 32.9 L eGFR 31 L BUN/Creatinine Ratio 45 H Glucose 74 D Calculated Osmolality 300 H Calcium 8.9 Corrected Calcium 9.4 Phosphorus 4.3 Magnesium 2.7 H Total Bilirubin 0.4 AST 28 ALT 30 Alkaline Phosphatase 40 L Total Protein 5.0 L Albumin 3.4 Globulin 1.6 L Albumin/Globulin Ratio 2.1 Hepatitis A IgM Ab Non Reactive Hep Bs Antigen Non Reactive Hep B Core IgM Ab Non Reactive Hepatitis C Antibody Reactive A ABG Interpretation ABG results: 04/18/25 20:40 VBG pH 7.47 VBG pCO2 36 VBG pO2 72 H VBG Base Excess 2 Quality Measures Quality Measures VTE prophylaxis Assessment & Plan Assessment Current Active Medications: Generic Name Dose Route Start Last Admin Trade Name Freq PRN Reason Stop Dose Admin Acetaminophen 650 mg 04/19/25 07:42 04/29/25 06:28 Acetaminophen 325 Mg Tablet PO 05/18/25 22:12 650 mg Q6H PRN Administration Mild Pain 1-3 or fever >100.1 Albuterol/Ipratropium 3 ml 04/22/25 11:00 04/29/25 06:26 Albuterol/Ipratropium (Duoneb) Rt Blanca 3 Ml Nebu INH 05/22/25 10:59 3 ml Q4HRRT KIP Administration Amlodipine Besylate 10 mg 04/25/25 09:00 04/28/25 08:50 Amlodipine Besylate 5 Mg Tablet PO 05/25/25 08:59 10 mg QDAY KIP Administration Apixaban 5 mg 04/19/25 09:00 04/26/25 08:47 Apixaban 2.5 Mg Tablet PO 05/19/25 08:59 5 mg BID KIP Administration Aspirin 81 mg 04/19/25 09:00 04/27/25 09:03 Aspirin Ec 81 Mg Tabec PO 05/19/25 08:59 81 mg QDAY KIP Administration Baclofen 10 mg 04/24/25 11:00 04/26/25 20:49 Baclofen 10 Mg Tablet PO 05/24/25 10:59 10 mg BID KIP Administration Buspirone HCl 5 mg 04/19/25 09:00 04/26/25 08:45 Buspirone Hcl 5 Mg Tablet PO 05/19/25 08:59 5 mg QDAY KIP Administration Methadone 100 Mg 0 ea 04/19/25 14:00 04/24/25 09:51 Cups PO 05/19/25 13:59 1 bottle DAILY KIP Administration Protocol Dextrose 25 ml 04/18/25 22:19 04/29/25 05:09 Dextrose 50%-Water Inj 50 Ml Syringe IV 05/18/25 22:18 10 ml Q15MIN PRN Administration BG 50-70 responsive npo pt Dextrose 50 ml 04/18/25 22:19 04/28/25 06:52 Dextrose 50%-Water Inj 50 Ml Syringe IV 05/18/25 22:18 50 ml Q15MIN PRN Administration BG <50 OR BG <70 & pt unresponsive Diltiazem HCl 180 mg 04/20/25 09:00 04/28/25 08:44 Diltiazem Cd 180 Mg Capcr PO 05/20/25 08:59 180 mg QDAY KIP Administration Glucagon 1 mg 04/18/25 22:19 Glucagon Inj 1 Mg Vial IM Q15MIN PRN BG <70, and no IV access Hydralazine HCl 100 mg 04/28/25 14:39 Hydralazine Hcl 25 Mg Tablet PO 05/19/25 08:44 TID KIP Dextrose 1,000 mls @ 80 mls/hr 04/29/25 06:15 04/29/25 06:21 D5w IV 04/29/25 18:44 80 mls/hr .[id number] KIP Administration Insulin Glargine 20 unit 04/24/25 21:00 04/28/25 21:34 Insulin Glargine (Lantus) 5 Unit/0.05 Ml (Per 5 Units) SC 05/24/25 20:59 20 unit HS KIP Administration Insulin Glargine 40 unit 04/28/25 09:00 04/28/25 11:07 Insulin Glargine (Lantus) 5 Unit/0.05 Ml (Per 5 Units) SC 05/28/25 08:59 40 unit QDAY KIP Administration Insulin Human Lispro 0 unit 04/29/25 06:00 04/29/25 05:43 Insulin Lispro (Admelog) 1 Unit/0.01 Ml Unit SC 05/29/25 05:59 Not Given Q6HR KIP Protocol Lactulose 10 gm 04/23/25 14:15 Lactulose Syrup 20 Gm/30 Ml Udc PO 05/23/25 14:14 X1 PRN CONSTIPATION Protocol Lidocaine 1 patch 04/22/25 16:48 04/24/25 04:34 Lidocaine 5% 1 Patch TOP 05/22/25 16:47 1 patch DAILY PRN Administration LOCALIZED PAIN Lisinopril 40 mg 04/25/25 09:00 04/26/25 08:45 Lisinopril 20 Mg Tablet PO 05/25/25 08:59 40 mg QDAY KIP Administration Methadone HCl 75 mg 04/27/25 09:00 04/28/25 08:52 Methadone Hcl 10 Mg Tablet PO 05/02/25 08:59 75 mg QDAY KIP Administration Methylprednisolone Sodium Succinate 20 mg 04/27/25 09:00 04/28/25 09:02 Methylprednisolone Sod Succ 40 Mg Vial IVP 05/04/25 08:59 20 mg QDAY KIP Administration Nicotine 21 mg 04/21/25 09:00 04/28/25 08:53 Nicotine Patch 21 Mg/24 Hr Patch.Td24 TOP 05/21/25 08:59 21 mg QDAY KIP Administration Nitroglycerin 0.4 mg 04/20/25 08:14 04/27/25 23:33 Nitroglycerin 0.4 Mg Subl Btl #25 SL 0.4 mg Q5MIN PRN Administration CHEST PAIN Ondansetron HCl 4 mg 04/18/25 22:13 04/28/25 17:23 Ondansetron Inj 2 Mg/Ml Inj 2 Ml IVP 05/18/25 22:12 4 mg Q6H PRN Administration NAUSEA OR VOMITING Protocol Pantoprazole Sodium 40 mg 04/24/25 09:00 04/28/25 08:50 Pantoprazole 40 Mg Tablet PO 05/24/25 08:59 40 mg QDAY KIP Administration Protocol Fluticasone/Salmeterol 1 puff 04/19/25 07:00 04/29/25 06:26 Fluticasone/Salmeterol 250/50 14 Dose Inh INH 05/19/25 06:59 1 puff BIDRT KIP Administration Sennosides 1 tab 04/18/25 22:13 Senna Tablet PO 05/18/25 22:12 QDAY PRN constipation Protocol Sodium Chloride 3 ml 04/21/25 10:39 04/21/25 11:03 Sodium Chloride Rt Blanca 0.9% 3 Ml Nebu INH 05/21/25 10:38 3 ml PRN PRN Administration SOLN Spironolactone 50 mg 04/19/25 09:00 04/19/25 09:53 Spironolactone 25 Mg Tablet PO 05/19/25 08:59 50 mg QDAY KIP Administration Plan Christina Diaz is a 64-year-old F with a PMH of ESBL UTI, COPD on 2-3 L at home, atrial fibrillation on Eliquis, Takotsubo's cardiomyopathy, substance use disorder (heroin and methamphetamine), IDDM, HTN, viral meningitis, and stroke who was admitted for acute on chronic COPD and CHF exacerbation. #THEO on CKDIIIb--patient with cardiorenal syndrome and multiple episodes of CHF exacerbation and hospitalizations. To prevent recurrent hospitalizations- decided to proceed with twice weekly dialysis. Had a long conversation with the patient who agreed. Anticoagulation held. Will need a permacath placement and dialysis tomorrow. PPD, hep panel ord Hep panel: Hep C reactive PPD: Left forearm HD: 04/29 Plan: -HD cath placement today -HD today #Acute Hypoxic Respiratory Failure secondary to #COPD// CHF Exacerbation - reccomend chest pt - consider guifenicin or glycopyrrolate for secretions #Leukocytosis - now downtrending 15 from 19 == no source identified #Atrial Fibrillation, rate controlled #Hypertension --blood pressure on the lower side. Held 3 medications #Chronic Hepatitis C #Type 2 Diabetes Mellitus, Insulin-Dependent #Substance Use Disorder (Methamphetamine and Heroin) #Anxiety/depression -Management per primary tea Plan discussed with nephrology attending Dr. Yao Paniagua MD Internal Medicine PGY-1 Attending Provider Attestation/Addendum Patient seen and examined with resident physician Dr. Paniagua. Note reviewed, agree with findings and recommendations. Patient with cardiorenal syndrome and needing multiple hospitalizations. To avoid Will initiate dialysis. Patient had a right IJ PermCath placed by IR. Patient currently seen on dialysis. Tolerating dialysis without any problems. Hemodialysis for 2 hours, qb 200, 2K, ultrafiltration 1 L, Epogen 6000, no heparin ordered. 1 unit PRBC ordered with dialysis. Plan of care discussed with the dialysis nurse. Please see dialysis flowsheet for further details.
--- NOTE | 2025-04-29 08:00 | XR_ITS ---
Ultrasound-guided needle placement right internal jugular vein Permanent tunneled dialysis catheter insertion, percutaneous Fluoroscopy AP chest, portable, single view. Date and time of procedure: April 29, 2025 1037 hours INDICATIONS: Renal failure patient requiring stat and long-term dialysis Informed consent provided Technique: A timeout was completed verifying correct patient, procedure, site, positioning, and special equipment if applicable. The patient was placed in a dependent position appropriate for dialysis catheter placement based on the vein to be cannulated. The patient'sright neck was prepped and draped in sterile fashion. Maximum Sterile Barrier Technique used including cap, mask, sterile gown, sterile gloves, and sterile full body drape. If ultrasound technique used: sterile gel and sterile probe covers. Hand Hygiene performed using proper scrub, soap and water, or alcohol-based hand rub. 1% lidocaine was used to anesthetize the surrounding skin area The Site Quick[employer] portable ultrasound apparatus utilized to confirm patency of the right internal jugular vein Utilizing ultrasonographic guidance successful 21-gauge needle puncture into the right internal jugular vein Ultrasound images were recorded and stored. Vessel micropuncture was performed with 21-gauge needle. 0.18 wire guide is introduced into the vein. 0.18 wire is introduced into the vena cava under fluoroscopy. Subcutaneous tunnel formed in the upper chest. Permanent tunneled dialysis catheter placed in the subcutaneous tunnel. Dilators were introduced over the J-wire guide. Tunneled dialysis catheter is introduced through a dilator with venous sheath into the superior vena cava under fluoroscopic guidance. The catheter is sutured in place to the skin and a sterile dressing applied. Perfusion to the extremity distal to the point of catheter insertion is checked and found to be adequate Attending radiologist was present for the entire procedure Estimated blood loss3 cc. The patient tolerated the procedure well and there were no complications Impression: Successful ultrasound-guided needle placement right internal jugular vein Successful permanent tunneled dialysis catheter insertion, percutaneous Fluoroscopy 0.2 minute radiation dose 0.60 milligray 1 spot fluoroscopic chest film. AP chest performed at completion procedure demonstrates satisfactory position dialysis catheter. May use dialysis catheter.
[2025-04-29 08:29] LABS: Basophils # (Auto) 0.0 Thou/mm3 (0.0-0.2); Basophils % (Auto) 0 % (0-2.5); Eosinophils # (Auto) 0.1 Thou/mm3 (0.0-0.5); Eosinophils % (Auto) 1 % (0-10); Hematocrit 25.2 % (36.0-46.0); Immature Granulocytes Auto 0.50 Thou/mm3 (0.00-0.00); Lymphocytes # (Auto) 1.7 Thou/mm3 (1.0-4.8); Lymphocytes % (Auto) 11 % (10-50); Mean Corpuscular HGB Conc 31.0 g/dl (31.0-37.0); Mean Corpuscular Hemoglobin 24.8 pg (25.0-35.0); Mean Corpuscular Volume 80 fL (80-100); Monocytes # (Auto) 1.4 Thou/mm3 (0.0-0.8); Monocytes % (Auto) 9 % (0-12); Neutrophils # (Auto) 11.9 Thou/mm3 (1.8-7.7); Neutrophils % (Auto) 76 % (37-80); Nucleated Red Blood Cell # 0.00 Thou/mm3 (0.00-0.00); Nucleated Red Blood Cell % 0 /100 WBC (0); Platelet Count 207 Thou/mm3 (140-440); RDW Standard Deviation 42.4 fL (36.4-46.3); Red Blood Count 3.15 Miln/mm3 (4.00-5.20); White Blood Count 15.7 Thou/mm3 (3.6-11.0)
[2025-04-29 08:33] LABS: Hemoglobin 7.8 g/dL (12.0-16.0)
[2025-04-29 08:45] LABS: INR 1.0 (0.9-1.3); Partial Thromboplastin Time 21.1 Seconds (22.0-36.0); Prothrombin Time 10.6 Seconds (9.0-12.2)
--- NOTE | 2025-04-29 09:00 | PC.SS ---
Follow up note: Pt is new dialysis with Dr. Samayoa at [facility] ([facility]). SS spoke to Kimberly from [facility] who explained insurance is being processed. Perma dialysis cath is still pending. Kimberly is aware pt has still not had dialysis.
--- NOTE | 2025-04-29 09:15 | PC.NURSE ---
0915 made aware of aspirin last dose 04/27/25 and eliquis last dose 04/26/25 and current labs, ok to proceed with perm cath insertion.
[2025-04-29] MEDS: METHADONE HCL 10 MG TABLET 75 MG PO (09:39)
--- NOTE | 2025-04-29 10:15 | PC.NURSE ---
1004 blood glucose 67 and patient NPO for perm cath procedure, hospitalist Dr. Paul notified and place dorder for Dextrose inj x1, will obtain good IV access and give medication
[2025-04-29] MEDS: DEXTROSE 50%-WATER INJ 50 ML SYRINGE IVP (10:37)
[2025-04-29] MEDS: HEPARIN SOD LOCK SYR 100 UNIT/ML 500 UNIT STFIELD (11:18)
[2025-04-29] MEDS: fentaNYL CIT INJ 50 mCg/ML AMP 2ML IVP (11:18)
[2025-04-29] MEDS: LIDOCAINE INJ PF 1% 5 ML VIAL 10 ML INFL (11:18)
[2025-04-29] MEDS: HEPARIN SOD INJ 1000 UNIT/ML VIAL 3800 UNIT INDWELLCAT (11:42)
--- NOTE | 2025-04-29 12:17 | PC.NURSE ---
1145 patient is awake, alert, breathing unlabored, s/p tunneled hemodialysis catheter insertion to right IJ, patient tolerated procedure well, transferred back to room 277, bedside report given to Vinicio GRAY
--- NOTE | 2025-04-29 12:50 | PC.SS ---
SS [facility] [place] using [employer].
[2025-04-29] MEDS: NICOTINE PATCH 21 MG/24 HR PATCH.TD24 TOP (13:05)
[2025-04-29] MEDS: DILTIAZEM CD 180 MG CAPCR PO (13:06)
[2025-04-29] MEDS: PANTOPRAZOLE 40 MG TABLET PO (13:06)
--- NOTE | 2025-04-29 16:21 | PC.SS ---
SS has faxed perma cath dialysis and TB test results to [facility]. Pt is having 1st dialysis session late today.
[2025-04-29] MEDS: INSULIN LISPRO (AdmeLOG) 1 UNIT/0.01 ML UNIT SC (17:33)
--- NOTE | 2025-04-29 17:39 | ESPR_ITS ---
<Statement entered by Ashok Butterfield MD - 05/08/25 14:33> I reviewed above note and agree with findings and plans. I have also personally examined the patient with medicine team and went over assessment and plan with medical team including internal sales engineer and resident physician. Documentation for date of: 04/29/25 Subjective Subjective Interval history: Patient seen at bedside. Patient underwent tunneled dialysis catheter placed on the right side of the chest. Patient states she is feeling good denies any pain. She is alert and oriented and awake. Patient also has a visitor and she appears to be in a very pleasant mood. Patient is scheduled to undergo dialysis today. Vitals are stable, saturating well on 2L O2. Labs are significant for WBC 15.7, hemoglobin 7.8, hematocrit 25.2, MCH 24.8, BUN 81, creatinine 1.8, GFR 31, magnesium 2.7. Patient is also currently getting 1 unit of PRBC ordered by nephrology. Exam Vital Signs Temp Pulse Resp BP Pulse Ox O2 Del Method O2 Flow Rate 97.0 F 74 16 136/59 H 98 Nasal Cannula 2 04/29/25 16:00 04/29/25 16:00 04/29/25 16:00 04/29/25 16:00 04/29/25 16:00 04/29/25 16:00 04/29/25 16:00 Narrative Exam GENERAL: Awake and alert x3 obese female, cooperative, Not in acute distress NEURO: no focal neurological deficits noted HEENT: Atraumatic, Normocephalic. mucous membranes moist. Eyes open, symmetrical, & clear, HD catheter noted on right side of chest HEART: Normal Heart Sounds LUNGS: Clear to auscultation with no wheezing or crackles. ABDOMEN: soft, non-distended, non-tender, bowel sounds heard, no guarding or rebound tenderness SKIN: No Rash or ecchymoses EXTREMITIES: No edema, no tenderness, able to move all 4 extremities, pedal pulses palpated Objective Labs 04/29/25 07:49 04/29/25 05:20 Labs: Laboratory Results - last 24 hr 04/27/25 04/29/25 04/29/25 05:33 05:20 07:49 WBC 15.7 H RBC 3.15 L Hgb 7.8 L Hct 25.2 L MCV 80 MCH 24.8 L MCHC 31.0 RDW Std Deviation 42.4 Plt Count 207 D Neut % (Auto) 76 Lymph % (Auto) 11 [place] % (Auto) 9 Eos % (Auto) 1 Baso % (Auto) 0 Neut # (Auto) 11.9 H Lymph # (Auto) 1.7 [place] # (Auto) 1.4 H Eos # (Auto) 0.1 Baso # (Auto) 0.0 Immature Gran # (Auto) 0.50 H Absolute Nucleated RBC 0.00 Immature Gran % 3 H Nucleated RBC % 0 PT 10.6 INR 1.0 APTT 21.1 L Sodium 139 Potassium 5.0 Chloride 103 Carbon Dioxide 27.4 Anion Gap 9 BUN 81 H Creatinine 1.8 H Estim Creat Clear Calc 32.9 L eGFR 31 L BUN/Creatinine Ratio 45 H Glucose 74 D Calculated Osmolality 300 H Calcium 8.9 Corrected Calcium 9.4 Phosphorus 4.3 Magnesium 2.7 H Total Bilirubin 0.4 AST 28 ALT 30 Alkaline Phosphatase 40 L Total Protein 5.0 L Albumin 3.4 Globulin 1.6 L Albumin/Globulin Ratio 2.1 Hepatitis A IgM Ab Non Reactive Hep Bs Antigen Non Reactive Hep B Core IgM Ab Non Reactive Hepatitis C Antibody Reactive A Blood Type Antibody Screen Crossmatch Blood Bank Wristband ID 04/29/25 10:36 WBC RBC Hgb Hct MCV MCH MCHC RDW Std Deviation Plt Count Neut % (Auto) Lymph % (Auto) [place] % (Auto) Eos % (Auto) Baso % (Auto) Neut # (Auto) Lymph # (Auto) [place] # (Auto) Eos # (Auto) Baso # (Auto) Immature Gran # (Auto) Absolute Nucleated RBC Immature Gran % Nucleated RBC % PT INR APTT Sodium Potassium Chloride Carbon Dioxide Anion Gap BUN Creatinine Estim Creat Clear Calc eGFR BUN/Creatinine Ratio Glucose Calculated Osmolality Calcium Corrected Calcium Phosphorus Magnesium Total Bilirubin AST ALT Alkaline Phosphatase Total Protein Albumin Globulin Albumin/Globulin Ratio Hepatitis A IgM Ab Hep Bs Antigen Hep B Core IgM Ab Hepatitis C Antibody Blood Type A Positive Antibody Screen NEGATIVE Crossmatch See Detail Blood Bank Wristband ID Yes ABG Interpretation ABG results: 04/18/25 20:40 VBG pH 7.47 VBG pCO2 36 VBG pO2 72 H VBG Base Excess 2 Quality Measures Quality Measures VTE prophylaxis Assessment & Plan Assessment Current Active Medications: Generic Name Dose Route Start Last Admin Trade Name Freq PRN Reason Stop Dose Admin Acetaminophen 650 mg 04/19/25 07:42 04/29/25 06:28 Acetaminophen 325 Mg Tablet PO 05/18/25 22:12 650 mg Q6H PRN Administration Mild Pain 1-3 or fever >100.1 Albuterol/Ipratropium 3 ml 04/22/25 11:00 04/29/25 14:12 Albuterol/Ipratropium (Duoneb) Rt Blanca 3 Ml Nebu INH 05/22/25 10:59 3 ml Q4HRRT KIP Administration Amlodipine Besylate 10 mg 04/25/25 09:00 04/28/25 08:50 Amlodipine Besylate 5 Mg Tablet PO 05/25/25 08:59 10 mg QDAY KIP Administration Apixaban 5 mg 04/19/25 09:00 04/26/25 08:47 Apixaban 2.5 Mg Tablet PO 05/19/25 08:59 5 mg BID KIP Administration Aspirin 81 mg 04/19/25 09:00 04/27/25 09:03 Aspirin Ec 81 Mg Tabec PO 05/19/25 08:59 81 mg QDAY KIP Administration Baclofen 10 mg 04/24/25 11:00 04/26/25 20:49 Baclofen 10 Mg Tablet PO 05/24/25 10:59 10 mg BID KIP Administration Buspirone HCl 5 mg 04/19/25 09:00 04/26/25 08:45 Buspirone Hcl 5 Mg Tablet PO 05/19/25 08:59 5 mg QDAY KIP Administration Dextrose 25 ml 04/18/25 22:19 04/29/25 05:09 Dextrose 50%-Water Inj 50 Ml Syringe IV 05/18/25 22:18 10 ml Q15MIN PRN Administration BG 50-70 responsive npo pt Dextrose 50 ml 04/18/25 22:19 04/28/25 06:52 Dextrose 50%-Water Inj 50 Ml Syringe IV 05/18/25 22:18 50 ml Q15MIN PRN Administration BG <50 OR BG <70 & pt unresponsive Diltiazem HCl 180 mg 04/20/25 09:00 04/29/25 13:06 Diltiazem Cd 180 Mg Capcr PO 05/20/25 08:59 180 mg QDAY KIP Administration Glucagon 1 mg 04/18/25 22:19 Glucagon Inj 1 Mg Vial IM Q15MIN PRN BG <70, and no IV access Guaifenesin 100 mg 04/29/25 08:26 Guaifenesin Syrup 200 Mg/10 Ml Udc PO 05/29/25 08:25 QID PRN COUGH Protocol Hydralazine HCl 100 mg 04/28/25 14:39 Hydralazine Hcl 25 Mg Tablet PO 05/19/25 08:44 TID KIP Dextrose 1,000 mls @ 80 mls/hr 04/29/25 06:15 04/29/25 06:21 D5w IV 04/29/25 18:44 80 mls/hr .[id number] KIP Administration Albumin Human 25 gm in 100 mls @ 100 mls/min 04/29/25 17:08 Albuminar-25 Ivpb IV PRN PRN DIALYSIS Insulin Glargine 40 unit 04/28/25 09:00 04/29/25 09:36 Insulin Glargine (Lantus) 5 Unit/0.05 Ml (Per 5 Units) SC 05/28/25 08:59 Not Given QDAY IKP Insulin Human Lispro 0 unit 04/29/25 17:00 04/29/25 17:33 Insulin Lispro (Admelog) 1 Unit/0.01 Ml Unit SC 05/29/25 16:59 3 unit AC KIP Administration Protocol Lactulose 10 gm 04/23/25 14:15 Lactulose Syrup 20 Gm/30 Ml Udc PO 05/23/25 14:14 X1 PRN CONSTIPATION Protocol Lidocaine 1 patch 04/22/25 16:48 04/24/25 04:34 Lidocaine 5% 1 Patch TOP 05/22/25 16:47 1 patch DAILY PRN Administration LOCALIZED PAIN Lisinopril 40 mg 04/25/25 09:00 04/26/25 08:45 Lisinopril 20 Mg Tablet PO 05/25/25 08:59 40 mg QDAY KIP Administration Methadone HCl 75 mg 04/27/25 09:00 04/29/25 09:39 Methadone Hcl 10 Mg Tablet PO 05/02/25 08:59 75 mg QDAY KIP Administration Methylprednisolone Sodium Succinate 20 mg 04/27/25 09:00 04/29/25 09:00 Methylprednisolone Sod Succ 40 Mg Vial IVP 05/04/25 08:59 Not Given QDAY KIP Nicotine 21 mg 04/21/25 09:00 04/29/25 13:05 Nicotine Patch 21 Mg/24 Hr Patch.Td24 TOP 05/21/25 08:59 21 mg QDAY KIP Administration Nitroglycerin 0.4 mg 04/20/25 08:14 04/27/25 23:33 Nitroglycerin 0.4 Mg Subl Btl #25 SL 0.4 mg Q5MIN PRN Administration CHEST PAIN Ondansetron HCl 4 mg 04/18/25 22:13 04/28/25 17:23 Ondansetron Inj 2 Mg/Ml Inj 2 Ml IVP 05/18/25 22:12 4 mg Q6H PRN Administration NAUSEA OR VOMITING Protocol Pantoprazole Sodium 40 mg 04/24/25 09:00 04/29/25 13:06 Pantoprazole 40 Mg Tablet PO 05/24/25 08:59 40 mg QDAY KIP Administration Protocol Fluticasone/Salmeterol 1 puff 04/19/25 07:00 04/29/25 06:26 Fluticasone/Salmeterol 250/50 14 Dose Inh INH 05/19/25 06:59 1 puff BIDRT KIP Administration Sennosides 1 tab 04/18/25 22:13 Senna Tablet PO 05/18/25 22:12 QDAY PRN constipation Protocol Sodium Chloride 3 ml 04/21/25 10:39 04/21/25 11:03 Sodium Chloride Rt Blanca 0.9% 3 Ml Nebu INH 05/21/25 10:38 3 ml PRN PRN Administration SOLN Spironolactone 50 mg 04/19/25 09:00 04/19/25 09:53 Spironolactone 25 Mg Tablet PO 05/19/25 08:59 50 mg QDAY KIP Administration Plan Mrs. Diaz is a 64 year old female with a history of COPD (2-3L home O2), A-fib on Eliquis, hypertension, CKD stage IIIb, T2DM, polysubstance use disorder, history of ESBL UTI, Takotsubo cardiomyopathy [diagnosed 2023] who came for worsening shortness of breath. Patient was admitted for management of acute hypoxic failure due to COPD. #THEO on CKD stage IIIb, Perm HD catheter placed 04/29 #Uremia #CKD Stage IIIb Patient has a history of CKD with worsening kidney function with worsening mentation -Per nephrology due to repeatedly increase in BUN and kidney function and mentation, decision is made to start pt on HD. -Tunneled dialysis cath placed in the right IJ by the IR on 04/29/25 -Pt underwent first dialysis session on 04/29 #Acute on chronic hypoxic failure due to #COPD exacerbation #Nicotine Use Disorder/Current Smoker Patient endorsed worsening of shortness of breath and chest pain that led to her seeking treatment in the ED on 04/18/2025. Patient has been using her Trelegy inhaler once a day and her albuterol inhaler 4 times a day after her recent discharge on 04/06. Home medications were providing minimal relief. Patient had a light yellow sputum production. Due to the patient's COPD exacerbation history, this is most likely another COPD exacerbation. Patient's acute episode of dyspnea meets criteria for COPD exacerbation. Chest x-ray 04/18 negative for acute findings, repeat chest x-ray 04/21 also negative for acute findings VBG 04/18 pH 7.47, PCO2 36, PO2 72, O2 sat 97% ? Maintain patient's oxygen saturation between 88% and 92% given history of COPD ? Continue DuoNeb 3 mL every 4 hours [employer] ? Continue methylprednisolone 20 mg IVP Qday ? Continue fluticasone/salmeterol 1 puff twice daily RT ? Continue to monitor patient's oxygen status ? Recommend CT chest scan in 3 to 6 months to follow-up on CTA chest on 04/03 ? Coccidioides panel not ordered due to recent negative on 04/04/2025 ? Discontinued ceftriaxone due to low suspicion of PNA given negative chest x- ray findings x 2 #Leukocytosis 2/2 steroid use -No signs of active infections, pt has remained afebrile, WBC count is with in normal limits. Patient was producing light yellow sputum via cough and has a history of green mucus production. Patient is more susceptible to infection due to history of COPD and frequent steroid use. Viral respiratory panel negative 04/18, strep group A negative 04/18. WBC noted to be elevated throughout current admission, possibly due to increased steroid use to manage acute hypoxic failure due to COPD exacerbation. ? Patient completed azithromycin 500 mg 5 day course [04/19-04/23] ? Will continue to monitor with daily CBC #Constipation #Low lumbar back pain #Abdominal pain #Pancreatitis r/o Patient had abdominal pain 04/22 and 04/23. CT abdomen pelvis without contrast ordered due to concerns for possible acute process such as appendicitis. CT abdomen pelvis 04/23 negative for acute concerns or bowel obstructions, but large stool burden noted. Patient is on lactulose 10g as needed for constipation at home, potentially related to history of opioid use. Patient has low lumbar back pain that started 04/23. CT abdomen pelvis done on the same day that her low lumbar back pain started was negative for acute processes in her spine, with the only abnormality noted as advanced degenerative disc disease in L4-L5 and L5-S1. Very low suspicion for acute causes of abdominal and back pain given highly inconsistent pattern of pain. Further imaging highly unlikely to change current management of care. ? Restarted home lactulose 10 g as needed ? Ordered lactulose 30 gm one-time dose on 04/24 ? Will order lipase to rule out possible pancreatitis ? Lipase 04/25: 48, within normal limits ? Ordered lidocaine patch ? 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 Noncardiac etiology suspected. Troponins negative on 04/18 and 04/20. EKG 04/21 negative for acute ischemic changes. ? Will continue to anticipate improvement and worsening of chest pain depending on respiratory status, suspect that treatment of COPD will resolve chest pain ? Will continue patient's Eliquis (on hold for permanent dialysis cath placement) ? Pain relief as indicated #Lower extremity edema (resolving) #History of Takatsubo cardiomyopathy [2023] #Right upper extremity edema #Right upper extremity thrombophlebitis r/o Patient presented with lower peripheral edema, had BNP of 116 on 04/18, and was given IV Lasix 40 mg one-time dose on 04/18. TTE showed normal left ventricular size and function with EF 60%, no wall motion abnormalities noted. Patient noted to have right upper extremity edema on 04/24. Given patient's history of peripheral IV on right arm lack of pain and erythema, and Eliquis use, there is low suspicion for thrombophlebitis. ? Will continue to monitor fluid status ? Received 1L NS on 04/22 per Nephrology recommendations ? Started patient on Lasix 40 mg IV twice daily with albumin 25 mg/kg twice daily schedule 30 minutes before Lasix per recommendations by Nephrology ? Discontinued Lasix 40 mg IV 04/25 and ordered glycopyrrolate 2 mg one-time dose per nephrology recommendations ? Ordered right upper extremity ultrasound to rule out right upper extremity thrombophlebitis ? RUE ultrasound 04/24 negative for thrombus #Atrial fibrilation with rate control #History of A-fib with RVR Patient has a history of atrial fibrillation with RVR. EKG 04/21 shows sinus rhythm. ? Continue diltiazem 180 mg daily ? Willl hold home Eliquis 5 mg p.o. twice daily for dialysis cath insertion on tuesday ? Continue aspirin 81 mg daily ? Continue to hold home metoprolol #Primary Hypertension Patient has a history of hypertension on spironolactone, metazalone, lisinopril, and hydralazine at home. Patient presented to ED with BP of 137/82. ? Continue hydralazine 100 mg p.o. 3 times daily (hold if SBP <110) ? Hold spironolactone 50 mg p.o. daily ? Continue diltiazem 180 mg p.o. daily ? Hold home lisinopril 40 mg daily, restarting home clonidine 0.1 mg twice daily, and restarting home amlodipine 10 mg daily #Type 2 diabetes mellitus, dependent on insulin #Hyperglycemia, likely due to steroid use ? Will continue to monitor fasting glucose ? Continue intermediate sliding scale ? Continue glargine 45 units in the morning ? Discontinued insulin lispro 12 units 3 times daily (with meals) ? Ordered glargine 20 units to be given at night ? Educated the patient on not eating food from outside the hospital ? Obtain FreeStyle Dante for patient to more closely monitor blood glucose #Chronic hepatitis C infection Patient tested positive for hepatitis C antibody on 04/21/2025 and 02/18/2024. ? Will continue to monitor with daily CMP -Pt will need to follow up outpatient with infectious disease specialist for further work up and treament options #Polysubstance use disorder (methamephetamine and heroin) Patient has history of methamphetamine and heroin abuse. On methadone outpatient. ? Will decrease methadone to 75 mg p.o. daily #Anxiety Patient has history of anxiety. ? Will hold patient's home BuSpar 5 mg p.o. daily and diazepam 5 mg p.o. twice daily PRN due to increased somnolence - Hold Baclofen Health Maintenance Disposition: Telemetry, pending permanent dialysis cath on tuesday DVT Prophylaxis: Eliquis-Being Held GI Prophylaxis: Pantoprazole Diet: Cardiac diet with consistent low carb Lines: Peripheral IV Antibiotics: N/A Code Status: FULL Assessment and plan discussed with my attending physician Dr. Scout Ghotra (PGY-2)- Internal medicine resident
[2025-04-29] MEDS: HEPARIN SOD INJ 1000 UNIT/ML VIAL 10 ML 3800 UNIT INDWELLCAT (20:35)
[2025-04-29] MEDS: APIXABAN 2.5 MG TABLET 5 MG PO (21:10)
[2025-04-29] MEDS: EPOETIN ALFA-EPBX INJ 10,000 UNIT/ML VIAL (NON-ESRD) 10000 UNIT SC (21:43)
[2025-04-29] MEDS: HYDROcodone/APAP 5/325 TABLET 1 TAB PO (21:43)
[2025-04-30] VITALS (27 sets, daily range): BP systolic 123–155; BP diastolic 55–87; PULSE 66–92; RESP 12–22; TEMP 35.8–36.6; O2SAT 94–100; BMI 29.6; BMI 13.0
[2025-04-30] MEDS: guaiFENesin SYRUP 200 MG/10 ML UDC 100 MG PO (01:13)
[2025-04-30] MEDS: ALBUTEROL/IPRATROPIUM (Duoneb) RT SOL 3 ML NEBU INH ×6 (02:43→22:51)
[2025-04-30] MEDS: MELATONIN 3 MG TABLET PO (02:44)
--- NOTE | 2025-04-30 04:52 | PC.NURSE ---
TICK FOUND TO RIGHT UPPER BACK. REMOVED WITH TWEEZERS AND PLACED IN SPECIMEN CUP. SCAB NOTED TO SITE ONCE REMOVED. SLIGHT REDNESS SURROUNDING SCAB. NO BULLS EYE RASH NOTED. NOTIFIED DR. TURPIN. NO ORDERS GIVEN AT THIS MOMENT.
[2025-04-30] MEDS: FLUTICASONE/SALMETEROL 250/50 14 DOSE INH 1 PUFF INH ×2 (06:50→18:37)
--- NOTE | 2025-04-30 07:08 | PD.RESPRO ---
Documentation for date of: 04/30/25 Subjective Subjective Interval history: Ms. Diaz is a 63-year-old female with past medical history of COPD on 2 L home oxygen, A-fib, hypertension, CKD stage IIIb, ecm-[id number] type 2 diabetes, polysubstance use disorder presents to the ED on 04/18 with increased episodes of shortness of breath. Patient states that ever since being discharged on 04/06 for COPD exacerbation she was doing okay; however, tonight she started developing increased level of shortness of breath. Patient states that she tried using her home inhalers including albuterol but those did not help her symptoms. Patient denies having any sick contacts; however, she is reporting some sore throat which has worsened in the past several days. Patient otherwise denies any fever/chills or any other concerning cardiac symptoms at this time. Nephrology consulted for management of THEO. Home medications included amlodipine, aspirin, BuSpar, clonidine, Valium, Eliquis, Trelegy, Lasix, hydralazine, Basaglar, DuoNeb, lactulose, lisinopril, meclizine, methadone, metolazone, metoprolol, Aldactone 04/24/2025: Patient seen and examined at bedside. Reports intense, constant pain across lower back and at R abdomen. Breathing slightly improved. BUN decreased to 87, Cr improved at 1.8. Good urine output of 4.7L over last 24h. Recommend to continue IV lasix 40 mg BID with albumin 25 g BID for 3 days (04/23- ). 04/25/2025: Patient seen and examined at bedside. Abdominal pain and back pain are mild and better controlled. Much improved shortness of breath. BUN increased 90, and recommend to stop diuretics. Cr improved from 1.8 to 1.7. 04/26/2025: Patient seen and examined at bedside. pain is better controlled, and less shortness of breath. BUN 107, Cr 2.0. Urine output 2.1L. Plan for HD via perm cath on Tuesday04/29/25, CTM BUN, pt may require vas catheter over the weekend if continues to increase. Concern for somnolence on exam later today, query if somnolence is 2/2 high methadone and buspar doses that patient takes chronically. 04/27/2025: Patient seen and examined at bedside. Patient has decreased somnolence compared to exam yesterday. Patient's mother in law seen at bedside visiting. BUN 77 from 107, creatinine 1.9 from 2.0 K 5.4 from 5.3. Continue plan for permacatheter on 04/29/2025. No HD today 04/28/2025 patient currently seen in telemetry. She seems to be more sleepy. Receiving high-dose methadone. Baclofen held. Urine output 1300 mL. Medications/labs reviewed. Patient with recurrent episodes of congestive heart failure exacerbation and decided to proceed with dialysis to prevent recurrent hospitalizations. She agreed. Diuretics were held. Anticoagulation held. She will receive dialysis catheter tomorrow. Of note her white count is elevated at 19.6. No source identified. Hemoglobin 9. Sodium 139, potassium 5, BUN 89, creatinine 1.6, glucose 45, calcium 9.2, magnesium is 2.6, LFTs normal, albumin 3.5. Abdominal x-ray showed constipation. 04/29/2025 patient seen and examined at [facility], pt is awake and interactive. On exam pt has wet lungs, crackles and rales bilaterally,UOP 1200. medications and labs reviewed. anticoagulation held pending HD catheter placement today, pt expresses some anxiety surrounding the placement of catheter. WBC downtrending 15.7 from 19.6. query 2/2 steroid use. Cr 1.6 from 1.6, BUN 81 from 89. Plan for HD today following cath placement. start Chest PT to help with expectoration of sputum. 04/30/2025: Patient seen and examined at bedside, pt is awake and interactive. On exam pt has reduced crackles and rales bilaterally, UOP 2600. BUN 40 from 81, Cr 1.2 from 1.8. cont Chest PT and Up to chair BID with assistance. HD today with fluid removal. 1 unti PRBC ordered to give with HD Exam Vital Signs Temp Pulse Resp BP Pulse Ox O2 Del Method O2 Flow Rate 97.1 F 68 18 123/71 100 Nasal Cannula 2 04/30/25 04:00 04/30/25 06:51 04/30/25 06:51 04/30/25 04:00 04/30/25 06:51 04/30/25 04:00 04/30/25 06:51 Narrative Exam CONSTITUTIONAL: Patient denies any fever, chills. HEENT: Denies any visual disturbances or hearing problems. CARDIOVASCULAR: Patient denies any chest pain. c/o shortness of breath, swelling in the lower extremities. PULMONARY: Patient c/o shortness of breath, cough, crackles and rales on exam, improved from pior GASTROINTESTINAL: Patient denies any abdominal pain, constipation, nausea, vomiting, diarrhea. GENITOURINARY: Patient denies any urinary symptoms of burning or frequency or hematuria, denies any form in the urine. SKIN: Denies any rash. MUSCULOSKELETAL: c/o LBP, joint pains. NEUROLOGICAL: pt awake and alert during exam, no intermittent sleepiness. PSYCHIATRIC: admits depression or anxiety. LYMPHATICS : No lymphadenopathy Objective Labs 04/29/25 07:49 04/30/25 06:58 Labs: Laboratory Results - last 24 hr 04/29/25 04/29/25 07:49 10:36 WBC 15.7 H RBC 3.15 L Hgb 7.8 L Hct 25.2 L MCV 80 MCH 24.8 L MCHC 31.0 RDW Std Deviation 42.4 Plt Count 207 D Neut % (Auto) 76 Lymph % (Auto) 11 Creek % (Auto) 9 Eos % (Auto) 1 Baso % (Auto) 0 Neut # (Auto) 11.9 H Lymph # (Auto) 1.7 Creek # (Auto) 1.4 H Eos # (Auto) 0.1 Baso # (Auto) 0.0 Immature Gran # (Auto) 0.50 H Absolute Nucleated RBC 0.00 Immature Gran % 3 H Nucleated RBC % 0 PT 10.6 INR 1.0 APTT 21.1 L Blood Type A Positive Antibody Screen NEGATIVE Crossmatch See Detail Blood Bank Wristband ID Yes ABG Interpretation ABG results: 04/18/25 20:40 VBG pH 7.47 VBG pCO2 36 VBG pO2 72 H VBG Base Excess 2 Quality Measures Quality Measures VTE prophylaxis Assessment & Plan Assessment Current Active Medications: Generic Name Dose Route Start Last Admin Trade Name Freq PRN Reason Stop Dose Admin Acetaminophen 650 mg 04/19/25 07:42 04/29/25 21:09 Acetaminophen 325 Mg Tablet PO 05/18/25 22:12 650 mg Q6H PRN Administration Mild Pain 1-3 or fever >100.1 Albuterol/Ipratropium 3 ml 04/22/25 11:00 04/30/25 06:50 Albuterol/Ipratropium (Duoneb) Rt Blanca 3 Ml Nebu INH 05/22/25 10:59 3 ml Q4HRRT KIP Administration Amlodipine Besylate 10 mg 04/25/25 09:00 04/28/25 08:50 Amlodipine Besylate 5 Mg Tablet PO 05/25/25 08:59 10 mg QDAY KIP Administration Apixaban 5 mg 04/29/25 21:00 04/29/25 21:10 Apixaban 2.5 Mg Tablet PO 05/29/25 20:59 5 mg Q12HR KIP Administration Aspirin 81 mg 04/30/25 09:00 Aspirin Ec 81 Mg Tabec PO 05/30/25 08:59 QDAY KIP Baclofen 10 mg 04/24/25 11:00 04/26/25 20:49 Baclofen 10 Mg Tablet PO 05/24/25 10:59 10 mg BID KIP Administration Buspirone HCl 5 mg 04/19/25 09:00 04/26/25 08:45 Buspirone Hcl 5 Mg Tablet PO 05/19/25 08:59 5 mg QDAY KIP Administration Dextrose 25 ml 04/18/25 22:19 04/29/25 05:09 Dextrose 50%-Water Inj 50 Ml Syringe IV 05/18/25 22:18 10 ml Q15MIN PRN Administration BG 50-70 responsive npo pt Dextrose 50 ml 04/18/25 22:19 04/28/25 06:52 Dextrose 50%-Water Inj 50 Ml Syringe IV 05/18/25 22:18 50 ml Q15MIN PRN Administration BG <50 OR BG <70 & pt unresponsive Diltiazem HCl 180 mg 04/20/25 09:00 04/29/25 13:06 Diltiazem Cd 180 Mg Capcr PO 05/20/25 08:59 180 mg QDAY KIP Administration Glucagon 1 mg 04/18/25 22:19 Glucagon Inj 1 Mg Vial IM Q15MIN PRN BG <70, and no IV access Guaifenesin 100 mg 04/29/25 08:26 04/30/25 01:13 Guaifenesin Syrup 200 Mg/10 Ml Udc PO 05/29/25 08:25 100 mg QID PRN Administration COUGH Protocol Heparin Sodium (Porcine) 3,800 unit 04/29/25 19:06 04/29/25 20:35 Heparin Sod Inj 1000 Unit/Ml Vial 10 Ml INDWELLCAT 05/13/25 19:05 3,800 unit PRN PRN Administration DIALYSIS Hydralazine HCl 100 mg 04/28/25 14:39 Hydralazine Hcl 25 Mg Tablet PO 05/19/25 08:44 TID KIP Albumin Human 25 gm in 100 mls @ 100 mls/min 04/29/25 17:08 Albuminar-25 Ivpb IV PRN PRN DIALYSIS Insulin Glargine 40 unit 04/28/25 09:00 04/29/25 09:36 Insulin Glargine (Lantus) 5 Unit/0.05 Ml (Per 5 Units) SC 05/28/25 08:59 Not Given QDAY KIP Insulin Human Lispro 0 unit 04/29/25 17:00 04/29/25 17:33 Insulin Lispro (Admelog) 1 Unit/0.01 Ml Unit SC 05/29/25 16:59 3 unit AC KIP Administration Protocol Lactulose 10 gm 04/23/25 14:15 Lactulose Syrup 20 Gm/30 Ml Udc PO 05/23/25 14:14 X1 PRN CONSTIPATION Protocol Lidocaine 1 patch 04/22/25 16:48 04/24/25 04:34 Lidocaine 5% 1 Patch TOP 05/22/25 16:47 1 patch DAILY PRN Administration LOCALIZED PAIN Lisinopril 40 mg 04/25/25 09:00 04/26/25 08:45 Lisinopril 20 Mg Tablet PO 05/25/25 08:59 40 mg QDAY KIP Administration Methadone HCl 75 mg 04/27/25 09:00 04/29/25 09:39 Methadone Hcl 10 Mg Tablet PO 05/02/25 08:59 75 mg QDAY KIP Administration Methylprednisolone Sodium Succinate 20 mg 04/27/25 09:00 04/29/25 09:00 Methylprednisolone Sod Succ 40 Mg Vial IVP 05/04/25 08:59 Not Given QDAY KIP Nicotine 21 mg 04/21/25 09:00 04/29/25 13:05 Nicotine Patch 21 Mg/24 Hr Patch.Td24 TOP 05/21/25 08:59 21 mg QDAY KIP Administration Nitroglycerin 0.4 mg 04/20/25 08:14 04/27/25 23:33 Nitroglycerin 0.4 Mg Subl Btl #25 SL 0.4 mg Q5MIN PRN Administration CHEST PAIN Ondansetron HCl 4 mg 04/18/25 22:13 04/28/25 17:23 Ondansetron Inj 2 Mg/Ml Inj 2 Ml IVP 05/18/25 22:12 4 mg Q6H PRN Administration NAUSEA OR VOMITING Protocol Pantoprazole Sodium 40 mg 04/24/25 09:00 04/29/25 13:06 Pantoprazole 40 Mg Tablet PO 05/24/25 08:59 40 mg QDAY KIP Administration Protocol Fluticasone/Salmeterol 1 puff 04/19/25 07:00 04/30/25 06:50 Fluticasone/Salmeterol 250/50 14 Dose Inh INH 05/19/25 06:59 1 puff BIDRT KIP Administration Sennosides 1 tab 04/18/25 22:13 Senna Tablet PO 05/18/25 22:12 QDAY PRN constipation Protocol Sodium Chloride 3 ml 04/21/25 10:39 04/21/25 11:03 Sodium Chloride Rt Blanca 0.9% 3 Ml Nebu INH 05/21/25 10:38 3 ml PRN PRN Administration SOLN Spironolactone 50 mg 04/19/25 09:00 04/19/25 09:53 Spironolactone 25 Mg Tablet PO 05/19/25 08:59 50 mg QDAY KIP Administration Plan Christina Diaz is a 64-year-old F with a PMH of ESBL UTI, COPD on 2-3 L at home, atrial fibrillation on Eliquis, Takotsubo's cardiomyopathy, substance use disorder (heroin and methamphetamine), IDDM, HTN, viral meningitis, and stroke who was admitted for acute on chronic COPD and CHF exacerbation, HD initiated, tolerating well. plan for 2x weekly HD outpatient to prevent recurrent hospitalizations. #THEO on CKDIIIb--patient with cardiorenal syndrome and multiple episodes of CHF exacerbation and hospitalizations. To prevent recurrent hospitalizations- decided to proceed with twice weekly dialysis. Had a long conversation with the patient who agreed. Perm cath placed 04/29. Hep panel: Hep C reactive PPD: Left forearm on 04/29 1 unit PRBC was given while on the floor not during HD BUN and Cr improving with HD. HD: 04/29, 04/30 Plan: -HD today with fluid removal, give 1 unit PRBC -plan for HD 2x/week in outpatient setting #Acute Hypoxic Respiratory Failure secondary to #COPD// CHF Exacerbation - cont chest pt - consider guifenicin or glycopyrrolate for secretions - Up to chair with assistance BID. #Leukocytosis - now downtrending 15 from 19 == no source identified #Atrial Fibrillation, rate controlled #Hypertension --systolic blood pressure 140s #Chronic Hepatitis C #Type 2 Diabetes Mellitus, Insulin-Dependent #Substance Use Disorder (Methamphetamine and Heroin) #Anxiety/depression -Management per primary tea Plan discussed with nephrology attending Dr. Yao Paniagua MD Internal Medicine PGY-1 Attending Provider Attestation/Addendum Patient seen and examined with resident physician Dr. Paniagua. Note reviewed, agree with findings and recommendations. Patient with cardiorenal syndrome and needing multiple hospitalizations. To avoid Will initiate dialysis. Patient had a right IJ PermCath placed by IR. Patient currently seen on dialysis. Tolerating dialysis without any problems. Hemodialysis for 2 hours, qb 200, 2K, ultrafiltration 1 L, Epogen 6000, no heparin ordered. 1 unit PRBC ordered with dialysis. Plan of care discussed with the dialysis nurse. Please see dialysis flowsheet for further details. Patient needs outpatient dialysis arrangements. Spoke to primary team
[2025-04-30 07:33] LABS: Alanine Aminotransferase 38 U/L (10-49); Albumin, Serum 3.2 gm/dL (3.4-4.8); Albumin/Globulin Ratio 2.1 (1.2-2.2); Alkaline Phosphatase 43 U/L (46-116); Anion Gap 8 (7-16); Aspartate Amino Transferase 38 U/L (0-34); BUN/Creatinine Ratio 33 Ratio (12-20); Bilirubin,Total 0.5 mg/dL (0.3-1.2); Blood Urea Nitrogen 40 mg/dL (9-23); Calcium 8.3 mg/dL (8.3-10.6); Calcium (Corrected) 8.9 mg/dL (8.5-10.1); Carbon Dioxide 27.9 mMol/L (20.0-31.0); Chloride 105 mMol/L (98-107); Creatinine (Component) 1.2 mg/dL (0.6-1.3); Estimated Creatinine Clearance 49.3 mL/min (>60); Globulin 1.5 gm/dL (2.3-3.5); Glucose 63 mg/dL (74-106); Magnesium 1.8 mg/dL (1.6-2.6); Osmolality,Calculated 288 (275-295); Phosphorous 3.1 mg/dL (2.4-5.1); Potassium 4.6 mMol/L (3.4-5.1); Sodium 141 mMol/L (136-145); Total Protein 4.7 gm/dL (5.7-8.2); eGFR 51 See Note
--- NOTE | 2025-04-30 08:19 | PC.SS ---
SS has faxed TB results, chest xray, dialysis flow sheet to [facility].
[2025-04-30] MEDS: METHADONE HCL 10 MG TABLET 75 MG PO (09:15)
[2025-04-30] MEDS: PANTOPRAZOLE 40 MG TABLET PO (09:16)
[2025-04-30] MEDS: APIXABAN 2.5 MG TABLET 5 MG PO ×2 (09:16→21:15)
[2025-04-30] MEDS: ASPIRIN EC 81 MG TABEC PO (09:16)
[2025-04-30] MEDS: NICOTINE PATCH 21 MG/24 HR PATCH.TD24 TOP (09:27)
--- NOTE | 2025-04-30 11:52 | PC.SS ---
SS received call from Kimberly from [facility] who provided dialysis chair time is Tuesdays and Saturdays at 6:10am. First session is Tuesday05-07-25 at 5:45am. SS [facility] [place] [facility]. SS spoke to Kimberly at [facility] who states 9:10am return time to [facility]. Ref# [id number]. Ale from [facility] is aware they will be receiving PCS form to fill out and re fax to [facility] to setup transportation. Dr. Watkins will be following pt at [facility]. Pt is aware. [facility] is unable to accept new patient's on the weekend therefore pt will d/c after dialysis on Tuesday to [facility] and will start dialysis on Tuesday05-07-25.
--- NOTE | 2025-04-30 13:16 | PC.NURSE ---
TRANSFUSION OF 1 UNIT OF PRBC'S, UF GOAL INCREASED TO ACCOUNT TOLERATED WILL CONT. TO MONITOR
--- NOTE | 2025-04-30 14:38 | PC.CC ---
Addendum entered and electronically signed by Beena Schuler RPh 04/30/25 14:40: Approved through 04/30/26. Noted planned disposition is to [facility]. Original Note: PA submitted via covermymeds for [employer] and Isom per RD request.
[2025-04-30] MEDS: HEPARIN SOD INJ 1000 UNIT/ML VIAL 10 ML 3800 UNIT INDWELLCAT (14:52)
[2025-04-30] MEDS: ACETAMINOPHEN 325 MG TABLET 650 MG PO (15:06)
--- NOTE | 2025-04-30 15:27 | RESP.EEG ---
CONTINUOUS EEG STARTED AT 1200, WILL CONTINUE TO RUN FOR 24 HOURS
--- NOTE | 2025-04-30 16:55 | ESPR_ITS ---
Documentation for date of: 04/30/25 Subjective Subjective Interval history: Overnight team reported patient had a tick on the back that was removed by the nurse. Patient is seen at bedside this morning denies any knowledge of any tick, pruritus or pain. Patient is currently saturating on 2 L of oxygen via nasal cannula. Patient endorses to feeling good she is more alert denies any pain. Patient underwent dialysis yesterday with 1 unit of PRBC which was not completely given due to leak from the IV line. Patient will be undergoing dialysis 2 days a week outpatient. Patient is stable to be discharged to rehab however we were informed by social that the rehab facility where the patient is supposed to be discharged had a COVID break out to therefore they are not accepting any patients until . If patient requires dialysis this week will reassess discharge based on the day patient needs dialysis. Will plan for discharge on . Labs are reviewed otherwise stable. Will continue to taper steroids and switch the patient to prednisone 15 mg p.o. daily. Exam Vital Signs Temp Pulse Resp BP Pulse Ox O2 Del Method O2 Flow Rate 97.1 F 77 20 143/79 H 99 Nasal Cannula 2 04/30/25 14:47 04/30/25 15:09 04/30/25 15:09 04/30/25 14:47 04/30/25 15:09 04/30/25 12:00 04/30/25 15:09 Narrative Exam GENERAL: Awake and alert x3 obese female, cooperative, Not in acute distress NEURO: no focal neurological deficits noted HEENT: Atraumatic, Normocephalic. mucous membranes moist. Eyes open, symmetrical, & clear, HD catheter noted on right side of chest HEART: Normal Heart Sounds LUNGS: Clear to auscultation with no wheezing or crackles. ABDOMEN: soft, non-distended, non-tender, bowel sounds heard, no guarding or rebound tenderness SKIN: No Rash or ecchymoses EXTREMITIES: No edema, no tenderness, able to move all 4 extremities, pedal pulses palpated Objective Labs 05/01/25 04:44 05/01/25 04:44 Labs: Laboratory Results - last 24 hr 04/29/25 04/30/25 04/30/25 10:36 06:58 08:29 WBC RBC Hgb Hct MCV MCH MCHC RDW Std Deviation Plt Count Neut % (Auto) Lymph % (Auto) Carson % (Auto) Eos % (Auto) Baso % (Auto) Neut # (Auto) Lymph # (Auto) Carson # (Auto) Eos # (Auto) Baso # (Auto) Immature Gran # (Auto) Absolute Nucleated RBC Immature Gran % Nucleated RBC % Sodium 141 Potassium 4.6 Chloride 105 Carbon Dioxide 27.9 Anion Gap 8 BUN 40 H Creatinine 1.2 D Estim Creat Clear Calc 49.3 L eGFR 51 L BUN/Creatinine Ratio 33 H Glucose 63 L Calculated Osmolality 288 Calcium 8.3 Corrected Calcium 8.9 Phosphorus 3.1 Magnesium 1.8 Total Bilirubin 0.5 AST 38 H ALT 38 Alkaline Phosphatase 43 L Total Protein 4.7 L Albumin 3.2 L Globulin 1.5 L Albumin/Globulin Ratio 2.1 Blood Type A Positive Antibody Screen NEGATIVE Crossmatch See Detail Blood Bank Wristband ID Yes ABG Interpretation ABG results: 04/18/25 20:40 VBG pH 7.47 VBG pCO2 36 VBG pO2 72 H VBG Base Excess 2 Quality Measures Quality Measures VTE prophylaxis Assessment & Plan Assessment Current Active Medications: Generic Name Dose Route Start Last Admin Trade Name Freq PRN Reason Stop Dose Admin Acetaminophen 650 mg 04/19/25 07:42 04/30/25 15:06 Acetaminophen 325 Mg Tablet PO 05/18/25 22:12 650 mg Q6H PRN Administration Mild Pain 1-3 or fever >100.1 Albuterol/Ipratropium 3 ml 04/22/25 11:00 04/30/25 15:08 Albuterol/Ipratropium (Duoneb) Rt Blanca 3 Ml Nebu INH 05/22/25 10:59 3 ml Q4HRRT KIP Administration Amlodipine Besylate 10 mg 04/25/25 09:00 04/28/25 08:50 Amlodipine Besylate 5 Mg Tablet PO 05/25/25 08:59 10 mg QDAY KIP Administration Apixaban 5 mg 04/29/25 21:00 04/30/25 09:16 Apixaban 2.5 Mg Tablet PO 05/29/25 20:59 5 mg Q12HR KIP Administration Aspirin 81 mg 04/30/25 09:00 04/30/25 09:16 Aspirin Ec 81 Mg Tabec PO 05/30/25 08:59 81 mg QDAY KIP Administration Baclofen 10 mg 04/24/25 11:00 04/26/25 20:49 Baclofen 10 Mg Tablet PO 05/24/25 10:59 10 mg BID KIP Administration Buspirone HCl 5 mg 04/19/25 09:00 04/26/25 08:45 Buspirone Hcl 5 Mg Tablet PO 05/19/25 08:59 5 mg QDAY KIP Administration Dextrose 25 ml 04/18/25 22:19 04/29/25 05:09 Dextrose 50%-Water Inj 50 Ml Syringe IV 05/18/25 22:18 10 ml Q15MIN PRN Administration BG 50-70 responsive npo pt Dextrose 50 ml 04/18/25 22:19 04/28/25 06:52 Dextrose 50%-Water Inj 50 Ml Syringe IV 05/18/25 22:18 50 ml Q15MIN PRN Administration BG <50 OR BG <70 & pt unresponsive Diltiazem HCl 180 mg 04/20/25 09:00 04/30/25 09:27 Diltiazem Cd 180 Mg Capcr PO 05/20/25 08:59 Not Given QDAY KIP Glucagon 1 mg 04/18/25 22:19 Glucagon Inj 1 Mg Vial IM Q15MIN PRN BG <70, and no IV access Guaifenesin 100 mg 04/29/25 08:26 04/30/25 01:13 Guaifenesin Syrup 200 Mg/10 Ml Udc PO 05/29/25 08:25 100 mg QID PRN Administration COUGH Protocol Heparin Sodium (Porcine) 3,800 unit 04/29/25 19:06 04/30/25 14:52 Heparin Sod Inj 1000 Unit/Ml Vial 10 Ml INDWELLCAT 05/13/25 19:05 3,800 unit PRN PRN Administration DIALYSIS Hydralazine HCl 100 mg 04/28/25 14:39 Hydralazine Hcl 25 Mg Tablet PO 05/19/25 08:44 TID KIP Albumin Human 25 gm in 100 mls @ 100 mls/min 04/29/25 17:08 Albuminar-25 Ivpb IV PRN PRN DIALYSIS Insulin Glargine 30 unit 04/30/25 09:00 04/30/25 08:01 Insulin Glargine (Lantus) 5 Unit/0.05 Ml (Per 5 Units) SC 05/30/25 08:59 Not Given QDAY KIP Insulin Human Lispro 0 unit 04/29/25 17:00 04/30/25 16:54 Insulin Lispro (Admelog) 1 Unit/0.01 Ml Unit SC 05/29/25 16:59 Not Given AC KIP Protocol Lactulose 10 gm 04/23/25 14:15 Lactulose Syrup 20 Gm/30 Ml Udc PO 05/23/25 14:14 X1 PRN CONSTIPATION Protocol Lidocaine 1 patch 04/22/25 16:48 04/24/25 04:34 Lidocaine 5% 1 Patch TOP 05/22/25 16:47 1 patch DAILY PRN Administration LOCALIZED PAIN Lisinopril 40 mg 04/25/25 09:00 04/26/25 08:45 Lisinopril 20 Mg Tablet PO 05/25/25 08:59 40 mg QDAY KIP Administration Methadone HCl 75 mg 04/27/25 09:00 04/30/25 09:15 Methadone Hcl 10 Mg Tablet PO 05/02/25 08:59 75 mg QDAY KIP Administration Nicotine 21 mg 04/21/25 09:00 04/30/25 09:27 Nicotine Patch 21 Mg/24 Hr Patch.Td24 TOP 05/21/25 08:59 21 mg QDAY KPI Administration Nitroglycerin 0.4 mg 04/20/25 08:14 04/27/25 23:33 Nitroglycerin 0.4 Mg Subl Btl #25 SL 0.4 mg Q5MIN PRN Administration CHEST PAIN Ondansetron HCl 4 mg 04/18/25 22:13 04/28/25 17:23 Ondansetron Inj 2 Mg/Ml Inj 2 Ml IVP 05/18/25 22:12 4 mg Q6H PRN Administration NAUSEA OR VOMITING Protocol Pantoprazole Sodium 40 mg 04/24/25 09:00 04/30/25 09:16 Pantoprazole 40 Mg Tablet PO 05/24/25 08:59 40 mg QDAY KIP Administration Protocol Prednisone 15 mg 05/01/25 09:00 Prednisone 5 Mg Tablet PO 05/31/25 08:59 QDAY KIP Fluticasone/Salmeterol 1 puff 04/19/25 07:00 04/30/25 06:50 Fluticasone/Salmeterol 250/50 14 Dose Inh INH 05/19/25 06:59 1 puff BIDRT KIP Administration Sennosides 1 tab 04/18/25 22:13 Senna Tablet PO 05/18/25 22:12 QDAY PRN constipation Protocol Sodium Chloride 3 ml 04/21/25 10:39 04/21/25 11:03 Sodium Chloride Rt Blanca 0.9% 3 Ml Nebu INH 05/21/25 10:38 3 ml PRN PRN Administration SOLN Spironolactone 50 mg 04/19/25 09:00 04/19/25 09:53 Spironolactone 25 Mg Tablet PO 05/19/25 08:59 50 mg QDAY KIP Administration Plan Mrs. Diaz is a 64 year old female with a history of COPD (2-3L home O2), A-fib on Eliquis, hypertension, CKD stage IIIb, T2DM, polysubstance use disorder, history of ESBL UTI, Takotsubo cardiomyopathy [diagnosed 2023] who came for worsening shortness of breath. Patient was admitted for management of acute hypoxic failure due to COPD. #THEO on CKD stage IIIb, Perm HD catheter placed 04/29 #Uremia #CKD Stage IIIb Patient has a history of CKD with worsening kidney function with worsening mentation -Per nephrology due to repeatedly increase in BUN and kidney function and mentation, decision is made to start pt on HD. -Tunneled dialysis cath placed in the right IJ by the IR on 04/29/25 -Pt underwent first dialysis session on 04/29 #Acute on chronic hypoxic failure due to #COPD exacerbation #Nicotine Use Disorder/Current Smoker Patient endorsed worsening of shortness of breath and chest pain that led to her seeking treatment in the ED on 04/18/2025. Patient has been using her Trelegy inhaler once a day and her albuterol inhaler 4 times a day after her recent discharge on 04/06. Home medications were providing minimal relief. Patient had a light yellow sputum production. Due to the patient's COPD exacerbation history, this is most likely another COPD exacerbation. Patient's acute episode of dyspnea meets criteria for COPD exacerbation. Chest x-ray 04/18 negative for acute findings, repeat chest x-ray 04/21 also negative for acute findings VBG 04/18 pH 7.47, PCO2 36, PO2 72, O2 sat 97% ? Maintain patient's oxygen saturation between 88% and 92% given history of COPD ? Continue DuoNeb 3 mL every 4 hours [employer] ? Continue methylprednisolone 20 mg IVP Qday ? Continue fluticasone/salmeterol 1 puff twice daily RT ? Continue to monitor patient's oxygen status ? Recommend CT chest scan in 3 to 6 months to follow-up on CTA chest on 04/03 ? Coccidioides panel not ordered due to recent negative on 04/04/2025 ? Discontinued ceftriaxone due to low suspicion of PNA given negative chest x- ray findings x 2 #Leukocytosis 2/2 steroid use -No signs of active infections, pt has remained afebrile, WBC count is with in normal limits. Patient was producing light yellow sputum via cough and has a history of green mucus production. Patient is more susceptible to infection due to history of COPD and frequent steroid use. Viral respiratory panel negative 04/18, strep group A negative 04/18. WBC noted to be elevated throughout current admission, possibly due to increased steroid use to manage acute hypoxic failure due to COPD exacerbation. ? Patient completed azithromycin 500 mg 5 day course [04/19-04/23] ? Will continue to monitor with daily CBC #Constipation #Low lumbar back pain #Abdominal pain #Pancreatitis r/o Patient had abdominal pain 04/22 and 04/23. CT abdomen pelvis without contrast ordered due to concerns for possible acute process such as appendicitis. CT abdomen pelvis 04/23 negative for acute concerns or bowel obstructions, but large stool burden noted. Patient is on lactulose 10g as needed for constipation at home, potentially related to history of opioid use. Patient has low lumbar back pain that started 04/23. CT abdomen pelvis done on the same day that her low lumbar back pain started was negative for acute processes in her spine, with the only abnormality noted as advanced degenerative disc disease in L4-L5 and L5-S1. Very low suspicion for acute causes of abdominal and back pain given highly inconsistent pattern of pain. Further imaging highly unlikely to change current management of care. ? Restarted home lactulose 10 g as needed ? Ordered lactulose 30 gm one-time dose on 04/24 ? Will order lipase to rule out possible pancreatitis ? Lipase 04/25: 48, within normal limits ? Ordered lidocaine patch ? Pelvis ultrasound ordered, 04/24: Fundal fibroid degeneration and left ovarian simple cyst 7.1 x 5.8 x 5.4 cm #History of chest pain secondary to angina, vasospastic, possibly due to Prinzmetal angina - resolved #Chest pain- resolved Most likely musculoskeletal in origin due to continued coughing. Noncardiac etiology suspected. Troponins negative on 04/18 and 04/20. EKG 04/21 negative for acute ischemic changes. ? Will continue to anticipate improvement and worsening of chest pain depending on respiratory status, suspect that treatment of COPD will resolve chest pain ? Will continue patient's Eliquis (on hold for permanent dialysis cath placement) ? Pain relief as indicated #Lower extremity edema (resolved) #History of Takatsubo cardiomyopathy [2023] #Right upper extremity edema #Right upper extremity thrombophlebitis r/o Patient presented with lower peripheral edema, had BNP of 116 on 04/18, and was given IV Lasix 40 mg one-time dose on 04/18. TTE showed normal left ventricular size and function with EF 60%, no wall motion abnormalities noted. Patient noted to have right upper extremity edema on 04/24. Given patient's history of peripheral IV on right arm lack of pain and erythema, and Eliquis use, there is low suspicion for thrombophlebitis. ? Will continue to monitor fluid status ? Received 1L NS on 04/22 per Nephrology recommendations ? Started patient on Lasix 40 mg IV twice daily with albumin 25 mg/kg twice daily schedule 30 minutes before Lasix per recommendations by Nephrology ? Discontinued Lasix 40 mg IV 04/25 and ordered glycopyrrolate 2 mg one-time dose per nephrology recommendations ? Ordered right upper extremity ultrasound to rule out right upper extremity thrombophlebitis ? RUE ultrasound 04/24 negative for thrombus #Atrial fibrilation with rate control #History of A-fib with RVR Patient has a history of atrial fibrillation with RVR. EKG 04/21 shows sinus rhythm. ? Continue diltiazem 180 mg daily ? Willl hold home Eliquis 5 mg p.o. twice daily for dialysis cath insertion on tuesday ? Continue aspirin 81 mg daily ? Continue to hold home metoprolol #Primary Hypertension Patient has a history of hypertension on spironolactone, metazalone, lisinopril, and hydralazine at home. Patient presented to ED with BP of 137/82. ? Continue hydralazine 100 mg p.o. 3 times daily (hold if SBP <110) ? Hold spironolactone 50 mg p.o. daily ? Continue diltiazem 180 mg p.o. daily ? Hold home lisinopril 40 mg daily, restarting home clonidine 0.1 mg twice daily, and restarting home amlodipine 10 mg daily #Insulin dependent Type 2 diabetes mellitus #Hyperglycemia, likely due to steroid use ? Will continue to monitor fasting glucose ? Continue intermediate sliding scale ? Continue glargine 45 units in the morning ? Discontinued insulin lispro 12 units 3 times daily (with meals) ? Ordered glargine 20 units to be given at night ? Educated the patient on not eating food from outside the hospital ? Obtain FreeStyle Dante for patient to more closely monitor blood glucose #Chronic hepatitis C infection Patient tested positive for hepatitis C antibody on 04/21/2025 and 02/18/2024. ? Will continue to monitor with daily CMP -Pt will need to follow up outpatient with infectious disease specialist for further work up and treament options #Polysubstance use disorder (methamephetamine and heroin) Patient has history of methamphetamine and heroin abuse. On methadone outpatient. ? Will decrease methadone to 75 mg p.o. daily #Anxiety Patient has history of anxiety. ? Will hold patient's home BuSpar 5 mg p.o. daily and diazepam 5 mg p.o. twice daily PRN due to increased somnolence - Hold Baclofen Health Maintenance Disposition: Telemetry, pending permanent dialysis cath on tuesday DVT Prophylaxis: Eliquis-Being Held GI Prophylaxis: Pantoprazole Diet: Cardiac diet with consistent low carb Lines: Peripheral IV Code Status: FULL Assessment and plan discussed with my attending physician Dr. Wilmer Ghotra (PGY-2)- Internal medicine resident Attending Provider Attestation/Addendum I attest that I was physically present for the evaluation, physical examination, lab and imaging review of the patient with the residents. I discussed the case with the residents and agree with the findings and plans of care as documented above. Lul Guillen MD
[2025-05-01] VITALS (31 sets, daily range): BP systolic 136–183; BP diastolic 72–91; PULSE 58–98; RESP 12–20; TEMP 36.1–36.6; O2SAT 96–100; BMI 13.0
[2025-05-01] MEDS: guaiFENesin SYRUP 200 MG/10 ML UDC 100 MG PO ×2 (00:09→21:19)
[2025-05-01] MEDS: ONDANSETRON INJ 2 MG/ML INJ 2 ML 4 MG IVP ×2 (02:06→15:58)
[2025-05-01] MEDS: ALBUTEROL/IPRATROPIUM (Duoneb) RT SOL 3 ML NEBU INH ×5 (03:16→22:21)
[2025-05-01 06:03] LABS: Basophils # (Auto) 0.0 Thou/mm3 (0.0-0.2); Basophils % (Auto) 0 % (0-2.5); Eosinophils # (Auto) 0.0 Thou/mm3 (0.0-0.5); Eosinophils % (Auto) 0 % (0-10); Hematocrit 31.5 % (36.0-46.0); Hemoglobin 10.3 g/dL (12.0-16.0); Immature Granulocytes Auto 0.26 Thou/mm3 (0.00-0.00); Lymphocytes # (Auto) 0.4 Thou/mm3 (1.0-4.8); Lymphocytes % (Auto) 4 % (10-50); Mean Corpuscular HGB Conc 32.7 g/dl (31.0-37.0); Mean Corpuscular Hemoglobin 26.3 pg (25.0-35.0); Mean Corpuscular Volume 81 fL (80-100); Monocytes # (Auto) 0.2 Thou/mm3 (0.0-0.8); Monocytes % (Auto) 2 % (0-12); Neutrophils # (Auto) 10.1 Thou/mm3 (1.8-7.7); Neutrophils % (Auto) 92 % (37-80); Nucleated Red Blood Cell # 0.00 Thou/mm3 (0.00-0.00); Nucleated Red Blood Cell % 0 /100 WBC (0); Platelet Count 153 Thou/mm3 (140-440); RDW Standard Deviation 42.0 fL (36.4-46.3); Red Blood Count 3.91 Miln/mm3 (4.00-5.20); White Blood Count 11.1 Thou/mm3 (3.6-11.0)
[2025-05-01] MEDS: FLUTICASONE/SALMETEROL 250/50 14 DOSE INH 1 PUFF INH ×2 (06:41→18:52)
[2025-05-01 06:46] LABS: Alanine Aminotransferase 36 U/L (10-49); Albumin, Serum 3.4 gm/dL (3.4-4.8); Albumin/Globulin Ratio 2.1 (1.2-2.2); Alkaline Phosphatase 47 U/L (46-116); Anion Gap 5 (7-16); Aspartate Amino Transferase 23 U/L (0-34); BUN/Creatinine Ratio 40 Ratio (12-20); Bilirubin,Total 0.6 mg/dL (0.3-1.2); Blood Urea Nitrogen 52 mg/dL (9-23); Calcium 8.5 mg/dL (8.3-10.6); Calcium (Corrected) 9.0 mg/dL (8.5-10.1); Carbon Dioxide 26.3 mMol/L (20.0-31.0); Chloride 103 mMol/L (98-107); Creatinine (Component) 1.3 mg/dL (0.6-1.3); Estimated Creatinine Clearance 45.5 mL/min (>60); Globulin 1.6 gm/dL (2.3-3.5); Glucose 373 mg/dL (74-106); Magnesium 2.2 mg/dL (1.6-2.6); Osmolality,Calculated 297 (275-295); Phosphorous 3.6 mg/dL (2.4-5.1); Sodium 134 mMol/L (136-145); Total Protein 5.0 gm/dL (5.7-8.2); eGFR 46 See Note
[2025-05-01 06:48] LABS: Potassium 6.2 mMol/L (3.4-5.1)
--- NOTE | 2025-05-01 07:15 | EKG_ITS ---
[facility] Test Date: 2025-05-01 Pat Name: DISHA ABRAHAM 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
[2025-05-01] MEDS: INSULIN LISPRO (AdmeLOG) 1 UNIT/0.01 ML UNIT SC ×3 (07:43→17:25)
[2025-05-01] MEDS: NICOTINE PATCH 21 MG/24 HR PATCH.TD24 TOP (08:09)
[2025-05-01] MEDS: APIXABAN 2.5 MG TABLET 5 MG PO ×2 (08:10→21:19)
[2025-05-01] MEDS: METHADONE HCL 10 MG TABLET 75 MG PO (08:10)
[2025-05-01] MEDS: PANTOPRAZOLE 40 MG TABLET PO (08:10)
[2025-05-01] MEDS: INSULIN GLARGINE (Lantus) 5 UNIT/0.05 ML (PER 5 UNITS) 30 UNIT SC (08:10)
[2025-05-01] MEDS: ASPIRIN EC 81 MG TABEC PO (08:10)
--- NOTE | 2025-05-01 08:54 | PD.RESPRO ---
Documentation for date of: 05/01/25 Subjective Subjective Interval history: Ms. Diaz is a 63-year-old female with past medical history of COPD on 2 L home oxygen, A-fib, hypertension, CKD stage IIIb, [id number] type 2 diabetes, polysubstance use disorder presents to the ED on 04/18 with increased episodes of shortness of breath. Patient states that ever since being discharged on 04/06 for COPD exacerbation she was doing okay; however, tonight she started developing increased level of shortness of breath. Patient states that she tried using her home inhalers including albuterol but those did not help her symptoms. Patient denies having any sick contacts; however, she is reporting some sore throat which has worsened in the past several days. Patient otherwise denies any fever/chills or any other concerning cardiac symptoms at this time. Nephrology consulted for management of THEO. Home medications included amlodipine, aspirin, BuSpar, clonidine, Valium, Eliquis, Trelegy, Lasix, hydralazine, Basaglar, DuoNeb, lactulose, lisinopril, meclizine, methadone, metolazone, metoprolol, Aldactone 04/24/2025: Patient seen and examined at bedside. Reports intense, constant pain across lower back and at R abdomen. Breathing slightly improved. BUN decreased to 87, Cr improved at 1.8. Good urine output of 4.7L over last 24h. Recommend to continue IV lasix 40 mg BID with albumin 25 g BID for 3 days (04/23- ). 04/25/2025: Patient seen and examined at bedside. Abdominal pain and back pain are mild and better controlled. Much improved shortness of breath. BUN increased 90, and recommend to stop diuretics. Cr improved from 1.8 to 1.7. 04/26/2025: Patient seen and examined at bedside. pain is better controlled, and less shortness of breath. BUN 107, Cr 2.0. Urine output 2.1L. Plan for HD via perm cath on Tuesday04/29/25, CTM BUN, pt may require vas catheter over the weekend if continues to increase. Concern for somnolence on exam later today, query if somnolence is 2/2 high methadone and buspar doses that patient takes chronically. 04/27/2025: Patient seen and examined at bedside. Patient has decreased somnolence compared to exam yesterday. Patient's mother in law seen at bedside visiting. BUN 77 from 107, creatinine 1.9 from 2.0 K 5.4 from 5.3. Continue plan for permacatheter on 04/29/2025. No HD today 04/28/2025 patient currently seen in telemetry. She seems to be more sleepy. Receiving high-dose methadone. Baclofen held. Urine output 1300 mL. Medications/labs reviewed. Patient with recurrent episodes of congestive heart failure exacerbation and decided to proceed with dialysis to prevent recurrent hospitalizations. She agreed. Diuretics were held. Anticoagulation held. She will receive dialysis catheter tomorrow. Of note her white count is elevated at 19.6. No source identified. Hemoglobin 9. Sodium 139, potassium 5, BUN 89, creatinine 1.6, glucose 45, calcium 9.2, magnesium is 2.6, LFTs normal, albumin 3.5. Abdominal x-ray showed constipation. 04/29/2025 patient seen and examined at [facility], pt is awake and interactive. On exam pt has wet lungs, crackles and rales bilaterally,UOP 1200. medications and labs reviewed. anticoagulation held pending HD catheter placement today, pt expresses some anxiety surrounding the placement of catheter. WBC downtrending 15.7 from 19.6. query 2/2 steroid use. Cr 1.6 from 1.6, BUN 81 from 89. Plan for HD today following cath placement. start Chest PT to help with expectoration of sputum. 04/30/2025: Patient seen and examined at bedside, pt is awake and interactive. On exam pt has reduced crackles and rales bilaterally, UOP 2600. BUN 40 from 81, Cr 1.2 from 1.8. cont Chest PT and Up to chair BID with assistance. HD today with fluid removal. 1 unti PRBC ordered to give with HD 05/01/2025: Patient seen and examined at bedside, pt is awake and interactive. she reports that when bathing yesterday, they located a tic on her lower back. no rash present. On exam lung mehta have mild ronchus bilaterally. and trace BLE edema. [id number], BUN 52 from 40, Cr 1.3, K 6.2 from 4.6. plan for HD today, pt will likely need HD 3x/week outpatient setting. Exam Vital Signs Temp Pulse Resp BP Pulse Ox O2 Del Method O2 Flow Rate 97.1 F 91 18 153/81 H 99 Nasal Cannula 2 05/01/25 08:42 05/01/25 08:44 05/01/25 08:42 05/01/25 08:44 05/01/25 08:42 05/01/25 07:58 05/01/25 08:42 Narrative Exam CONSTITUTIONAL: Patient denies any fever, chills. HEENT: Denies any visual disturbances or hearing problems. CARDIOVASCULAR: Patient denies any chest pain. c/o shortness of breath, swelling in the lower extremities. PULMONARY: intermittent cough, crackles and rales on exam, improved from pior GASTROINTESTINAL: Patient denies any abdominal pain, constipation, nausea, vomiting, diarrhea. GENITOURINARY: Patient denies any urinary symptoms of burning or frequency or hematuria, denies any form in the urine. SKIN: Denies any rash. pt reports tic was found on her back yesterday, specimen removed whole. , no bullseye rash. MUSCULOSKELETAL: c/o LBP, joint pains.trace BLE edema NEUROLOGICAL: pt awake and alert during exam, no intermittent sleepiness. PSYCHIATRIC: admits depression or anxiety. LYMPHATICS : No lymphadenopathy Objective Labs 05/02/25 07:10 05/02/25 07:10 Labs: Laboratory Results - last 24 hr 04/29/25 04/30/25 05/01/25 10:36 08:29 04:44 WBC 11.1 H RBC 3.91 L Hgb 10.3 L D Hct 31.5 L MCV 81 MCH 26.3 MCHC 32.7 RDW Std Deviation 42.0 Plt Count 153 D Neut % (Auto) 92 H Lymph % (Auto) 4 L [place] % (Auto) 2 Eos % (Auto) 0 Baso % (Auto) 0 Neut # (Auto) 10.1 H Lymph # (Auto) 0.4 L [place] # (Auto) 0.2 Eos # (Auto) 0.0 Baso # (Auto) 0.0 Immature Gran # (Auto) 0.26 H Absolute Nucleated RBC 0.00 Immature Gran % 2 H Nucleated RBC % 0 Sodium 134 L Potassium 6.2 H* D Chloride 103 Carbon Dioxide 26.3 Anion Gap 5 L BUN 52 H Creatinine 1.3 Estim Creat Clear Calc 45.5 L eGFR 46 L BUN/Creatinine Ratio 40 H Glucose 373 H D Calculated Osmolality 297 H Calcium 8.5 Corrected Calcium 9.0 Phosphorus 3.6 Magnesium 2.2 Total Bilirubin 0.6 AST 23 ALT 36 Alkaline Phosphatase 47 Total Protein 5.0 L Albumin 3.4 Globulin 1.6 L Albumin/Globulin Ratio 2.1 Blood Type A Positive Antibody Screen NEGATIVE Crossmatch See Detail Blood Bank Wristband ID Yes ABG Interpretation ABG results: 04/18/25 20:40 VBG pH 7.47 VBG pCO2 36 VBG pO2 72 H VBG Base Excess 2 Quality Measures Quality Measures VTE prophylaxis Assessment & Plan Assessment Current Active Medications: Generic Name Dose Route Start Last Admin Trade Name Freq PRN Reason Stop Dose Admin Acetaminophen 650 mg 04/19/25 07:42 04/30/25 15:06 Acetaminophen 325 Mg Tablet PO 05/18/25 22:12 650 mg Q6H PRN Administration Mild Pain 1-3 or fever >100.1 Albuterol/Ipratropium 3 ml 04/22/25 11:00 05/01/25 06:41 Albuterol/Ipratropium (Duoneb) Rt Blanca 3 Ml Nebu INH 05/22/25 10:59 3 ml Q4HRRT KIP Administration Amlodipine Besylate 10 mg 04/25/25 09:00 04/28/25 08:50 Amlodipine Besylate 5 Mg Tablet PO 05/25/25 08:59 10 mg QDAY KIP Administration Apixaban 5 mg 04/29/25 21:00 05/01/25 08:10 Apixaban 2.5 Mg Tablet PO 05/29/25 20:59 5 mg Q12HR KIP Administration Aspirin 81 mg 04/30/25 09:00 05/01/25 08:10 Aspirin Ec 81 Mg Tabec PO 05/30/25 08:59 81 mg QDAY KIP Administration Baclofen 10 mg 04/24/25 11:00 04/26/25 20:49 Baclofen 10 Mg Tablet PO 05/24/25 10:59 10 mg BID KIP Administration Buspirone HCl 5 mg 04/19/25 09:00 04/26/25 08:45 Buspirone Hcl 5 Mg Tablet PO 05/19/25 08:59 5 mg QDAY KIP Administration Dextrose 25 ml 04/18/25 22:19 04/29/25 05:09 Dextrose 50%-Water Inj 50 Ml Syringe IV 05/18/25 22:18 10 ml Q15MIN PRN Administration BG 50-70 responsive npo pt Dextrose 50 ml 04/18/25 22:19 04/28/25 06:52 Dextrose 50%-Water Inj 50 Ml Syringe IV 05/18/25 22:18 50 ml Q15MIN PRN Administration BG <50 OR BG <70 & pt unresponsive Diltiazem HCl 180 mg 04/20/25 09:00 04/30/25 09:27 Diltiazem Cd 180 Mg Capcr PO 05/20/25 08:59 Not Given QDAY KIP Glucagon 1 mg 04/18/25 22:19 Glucagon Inj 1 Mg Vial IM Q15MIN PRN BG <70, and no IV access Guaifenesin 100 mg 04/29/25 08:26 05/01/25 00:09 Guaifenesin Syrup 200 Mg/10 Ml Udc PO 05/29/25 08:25 100 mg QID PRN Administration COUGH Protocol Heparin Sodium (Porcine) 3,800 unit 04/29/25 19:06 04/30/25 14:52 Heparin Sod Inj 1000 Unit/Ml Vial 10 Ml INDWELLCAT 05/13/25 19:05 3,800 unit PRN PRN Administration DIALYSIS Hydralazine HCl 100 mg 04/28/25 14:39 Hydralazine Hcl 25 Mg Tablet PO 05/19/25 08:44 TID KIP Albumin Human 25 gm in 100 mls @ 100 mls/min 04/29/25 17:08 Albuminar-25 Ivpb IV PRN PRN DIALYSIS Insulin Glargine 30 unit 04/30/25 09:00 05/01/25 08:10 Insulin Glargine (Lantus) 5 Unit/0.05 Ml (Per 5 Units) SC 05/30/25 08:59 30 unit QDAY KIP Administration Insulin Human Lispro 0 unit 04/29/25 17:00 05/01/25 07:43 Insulin Lispro (Admelog) 1 Unit/0.01 Ml Unit SC 05/29/25 16:59 4 unit AC KIP Administration Protocol Lactulose 10 gm 04/23/25 14:15 Lactulose Syrup 20 Gm/30 Ml Udc PO 05/23/25 14:14 X1 PRN CONSTIPATION Protocol Lidocaine 1 patch 04/22/25 16:48 04/24/25 04:34 Lidocaine 5% 1 Patch TOP 05/22/25 16:47 1 patch DAILY PRN Administration LOCALIZED PAIN Lisinopril 40 mg 04/25/25 09:00 04/26/25 08:45 Lisinopril 20 Mg Tablet PO 05/25/25 08:59 40 mg QDAY KIP Administration Methadone HCl 75 mg 04/27/25 09:00 05/01/25 08:10 Methadone Hcl 10 Mg Tablet PO 05/02/25 08:59 75 mg QDAY KIP Administration Nicotine 21 mg 04/21/25 09:00 05/01/25 08:09 Nicotine Patch 21 Mg/24 Hr Patch.Td24 TOP 05/21/25 08:59 21 mg QDAY KIP Administration Nitroglycerin 0.4 mg 04/20/25 08:14 04/27/25 23:33 Nitroglycerin 0.4 Mg Subl Btl #25 SL 0.4 mg Q5MIN PRN Administration CHEST PAIN Ondansetron HCl 4 mg 04/18/25 22:13 05/01/25 02:06 Ondansetron Inj 2 Mg/Ml Inj 2 Ml IVP 05/18/25 22:12 4 mg Q6H PRN Administration NAUSEA OR VOMITING Protocol Pantoprazole Sodium 40 mg 04/24/25 09:00 05/01/25 08:10 Pantoprazole 40 Mg Tablet PO 05/24/25 08:59 40 mg QDAY KIP Administration Protocol Prednisone 15 mg 05/01/25 09:00 05/01/25 08:09 Prednisone 5 Mg Tablet PO 05/31/25 08:59 15 mg QDAY KIP Administration Fluticasone/Salmeterol 1 puff 04/19/25 07:00 05/01/25 06:41 Fluticasone/Salmeterol 250/50 14 Dose Inh INH 05/19/25 06:59 1 puff BIDRT KIP Administration Sennosides 1 tab 04/18/25 22:13 Senna Tablet PO 05/18/25 22:12 QDAY PRN constipation Protocol Sodium Chloride 3 ml 04/21/25 10:39 04/21/25 11:03 Sodium Chloride Rt Blanca 0.9% 3 Ml Nebu INH 05/21/25 10:38 3 ml PRN PRN Administration SOLN Spironolactone 50 mg 04/19/25 09:00 04/19/25 09:53 Spironolactone 25 Mg Tablet PO 05/19/25 08:59 50 mg QDAY KIP Administration Plan Christina Diaz is a 64-year-old F with a PMH of ESBL UTI, COPD on 2-3 L at home, atrial fibrillation on Eliquis, Takotsubo's cardiomyopathy, substance use disorder (heroin and methamphetamine), IDDM, HTN, viral meningitis, and stroke who was admitted for acute on chronic COPD and CHF exacerbation, HD initiated, tolerating well. pt may require 3x/week sessions #THEO on CKDIIIb--patient with cardiorenal syndrome and multiple episodes of CHF exacerbation and hospitalizations. To prevent recurrent hospitalizations- decided to proceed with twice weekly dialysis. Had a long conversation with the patient who agreed. Perm cath placed 04/29. Hep panel: Hep C reactive PPD: Left forearm on 04/29 1 unit PRBC was given while on the floor not during HD on 05/01 K 6.2 from 4.6, Cr 1.3, BUN 52 from 40 HD: 04/29, 04/30, 05/01 Plan: -HD today -plan for HD 3x/week in outpatient setting #Acute Hypoxic Respiratory Failure secondary to #COPD// CHF Exacerbation - cont chest pt - consider guifenicin or glycopyrrolate for secretions - Up to chair with assistance BID. #Tick vs bed bug pt reports a bug was found on her lower back while being bathed yesterday. she states that she does not know where it came from. she had visitors previously from her mother in law. She states that she has a pug dog at home that she bathes regularly. no rash on physical exam. #Leukocytosis - now downtrending 11 from 15 == no source identified #Atrial Fibrillation, rate controlled #Hypertension --systolic blood pressure 140s #Chronic Hepatitis C #Type 2 Diabetes Mellitus, Insulin-Dependent #Substance Use Disorder (Methamphetamine and Heroin) #Anxiety/depression -Management per primary tea Plan discussed with nephrology attending Dr. Yao Paniagua MD Internal Medicine PGY-1 Attending Provider Attestation/Addendum Patient seen and examined with resident physician Dr. Paniagua. Note reviewed, agree with findings and recommendations. Patient with cardiorenal syndrome and needing multiple hospitalizations. To avoid Will initiate dialysis. Patient had a right IJ PermCath placed by IR. Patient currently seen on third dialysis. Tolerating dialysis without any problems. Hemodialysis for 3 hours, qb 200, 2K, ultrafiltration 1 L, Epogen 6000, no heparin ordered. 1 unit PRBC ordered with dialysis. Plan of care discussed with the dialysis nurse. Please see dialysis flowsheet for further details. Patient needs outpatient dialysis arrangements. Spoke to primary team-patient scheduled for Tuesday, Tuesday, Tuesday.
--- NOTE | 2025-05-01 11:01 | PC.SS ---
Follow up note: Potassium is high. Pt is having dialysis today. SS spoke to Ale at [facility] who explained she will follow up with her d/c tomorrow to determine when they can accept pt. Physicians are aware dialysis center does not accept new dialysis patient's on the weekend. Ale from [facility] is requesting for physicians to confirm pt does not require dialysis over the weekend before she d/c to [facility].
[2025-05-01] MEDS: HEPARIN SOD INJ 1000 UNIT/ML VIAL 10 ML 3800 UNIT INDWELLCAT (11:50)
[2025-05-01] MEDS: PATIROMER CALCIUM 8.4 GM PACKET (NON-FORM) PO (13:39)
--- NOTE | 2025-05-01 15:37 | PC.SS ---
SS received phone call from Kimberly from [facility] who states patient's dialysis chair time has now changed to Tuesday at 6:30am. First session is Tuesday05-03-25 at 6am. SS contacted [facility] and spoke with Doris who states she is not trained to setup transportation with [facility] and transferred SS to [phone]. SS spoke to Ellie who was able to change transportation time and date. Ellie from [facility] is aware the new dialysis date is May 03, 2025 and tile picker time is 5:40am from [facility] and return time is 9:50am. Ellie from [facility] is aware patient's dialysis start chair time is 6:00am. Ref# [id number]. Ale from [facility] is aware. Physician residents are aware.
[2025-05-01] MEDS: SIMETHICONE 80 MG CHEW PO (16:13)
--- NOTE | 2025-05-01 16:22 | PC.NURSE ---
patient c/o stomach upset, aware. ordered simethicon x1
--- NOTE | 2025-05-01 16:54 | ESPR_ITS ---
Documentation for date of: 05/01/25 Subjective Subjective Interval history: No acute overnight events reported. Pt is seen and examined at bedside during dialysis. Pt is awake, alert and oriented. Pt is in pleasant mood, endorses to significant improvement in her symptoms. Denies any pain, SOB and has no complaints. Will continue current dose of methadone 75mg TID and will encouraged the patient to follow up with methadone clinic to continue taper down. Pt is switched to predisone PO 15mg daily. Pt's outpatient dialysis chair is approved for MWF and will anticipate discharge tomorrow and pt will undergo dialysis on tuesday outpatient. CBC is stable, CMP is significant for potassium 6.2, GFR 46, glucose 373 (finger stick 192). Pt did receive glargine 30 units and 4 unit lispro. Will continue monitor BG and elyctrolytes. Exam Vital Signs Temp Pulse Resp BP Pulse Ox O2 Del Method O2 Flow Rate 97.7 F 86 20 183/89 H 98 High Flow Nasal Cannula 2 05/01/25 12:10 05/01/25 14:16 05/01/25 14:16 05/01/25 12:10 05/01/25 14:16 05/01/25 12:10 05/01/25 14:16 Narrative Exam GENERAL: Awake and alert x3 obese female, cooperative, Not in acute distress NEURO: no focal neurological deficits noted HEENT: Atraumatic, Normocephalic. mucous membranes moist. Eyes open, symmetrical, & clear, HD catheter noted on right side of chest HEART: Normal Heart Sounds LUNGS: Clear to auscultation with no wheezing or crackles. ABDOMEN: soft, non-distended, non-tender, bowel sounds heard, no guarding or rebound tenderness SKIN: No Rash or ecchymoses EXTREMITIES: No edema, no tenderness, able to move all 4 extremities, pedal pulses palpated Objective Labs 05/01/25 04:44 05/01/25 04:44 Labs: Laboratory Results - last 24 hr 05/01/25 04:44 WBC 11.1 H RBC 3.91 L Hgb 10.3 L D Hct 31.5 L MCV 81 MCH 26.3 MCHC 32.7 RDW Std Deviation 42.0 Plt Count 153 D Neut % (Auto) 92 H Lymph % (Auto) 4 L [place] % (Auto) 2 Eos % (Auto) 0 Baso % (Auto) 0 Neut # (Auto) 10.1 H Lymph # (Auto) 0.4 L [place] # (Auto) 0.2 Eos # (Auto) 0.0 Baso # (Auto) 0.0 Immature Gran # (Auto) 0.26 H Absolute Nucleated RBC 0.00 Immature Gran % 2 H Nucleated RBC % 0 Sodium 134 L Potassium 6.2 H* D Chloride 103 Carbon Dioxide 26.3 Anion Gap 5 L BUN 52 H Creatinine 1.3 Estim Creat Clear Calc 45.5 L eGFR 46 L BUN/Creatinine Ratio 40 H Glucose 373 H D Calculated Osmolality 297 H Calcium 8.5 Corrected Calcium 9.0 Phosphorus 3.6 Magnesium 2.2 Total Bilirubin 0.6 AST 23 ALT 36 Alkaline Phosphatase 47 Total Protein 5.0 L Albumin 3.4 Globulin 1.6 L Albumin/Globulin Ratio 2.1 ABG Interpretation ABG results: 04/18/25 20:40 VBG pH 7.47 VBG pCO2 36 VBG pO2 72 H VBG Base Excess 2 Quality Measures Quality Measures VTE prophylaxis Assessment & Plan Assessment Current Active Medications: Generic Name Dose Route Start Last Admin Trade Name Freq PRN Reason Stop Dose Admin Acetaminophen 650 mg 04/19/25 07:42 04/30/25 15:06 Acetaminophen 325 Mg Tablet PO 05/18/25 22:12 650 mg Q6H PRN Administration Mild Pain 1-3 or fever >100.1 Albuterol/Ipratropium 3 ml 04/22/25 11:00 05/01/25 14:11 Albuterol/Ipratropium (Duoneb) Rt [place]anca 3 Ml Nebu INH 05/22/25 10:59 3 ml Q4HRRT KIP Administration Amlodipine Besylate 10 mg 04/25/25 09:00 04/28/25 08:50 Amlodipine Besylate 5 Mg Tablet PO 05/25/25 08:59 10 mg QDAY KIP Administration Apixaban 5 mg 04/29/25 21:00 05/01/25 08:10 Apixaban 2.5 Mg Tablet PO 05/29/25 20:59 5 mg Q12HR KIP Administration Aspirin 81 mg 04/30/25 09:00 05/01/25 08:10 Aspirin Ec 81 Mg Tabec PO 05/30/25 08:59 81 mg QDAY KIP Administration Dextrose 25 ml 04/18/25 22:19 04/29/25 05:09 Dextrose 50%-Water Inj 50 Ml Syringe IV 05/18/25 22:18 10 ml Q15MIN PRN Administration BG 50-70 responsive npo pt Dextrose 50 ml 04/18/25 22:19 04/28/25 06:52 Dextrose 50%-Water Inj 50 Ml Syringe IV 05/18/25 22:18 50 ml Q15MIN PRN Administration BG <50 OR BG <70 & pt unresponsive Diltiazem HCl 180 mg 04/20/25 09:00 05/01/25 12:22 Diltiazem Cd 180 Mg Capcr PO 05/20/25 08:59 Not Given QDAY KIP Glucagon 1 mg 04/18/25 22:19 Glucagon Inj 1 Mg Vial IM Q15MIN PRN BG <70, and no IV access Guaifenesin 100 mg 04/29/25 08:26 05/01/25 00:09 Guaifenesin Syrup 200 Mg/10 Ml Udc PO 05/29/25 08:25 100 mg QID PRN Administration COUGH Protocol Heparin Sodium (Porcine) 3,800 unit 04/29/25 19:06 05/01/25 11:50 Heparin Sod Inj 1000 Unit/Ml Vial 10 Ml INDWELLCAT 05/13/25 19:05 3,800 unit PRN PRN Administration DIALYSIS Hydralazine HCl 100 mg 04/28/25 14:39 Hydralazine Hcl 25 Mg Tablet PO 05/19/25 08:44 TID KIP Albumin Human 25 gm in 100 mls @ 100 mls/min 04/29/25 17:08 Albuminar-25 Ivpb IV PRN PRN DIALYSIS Insulin Glargine 30 unit 04/30/25 09:00 05/01/25 08:10 Insulin Glargine (Lantus) 5 Unit/0.05 Ml (Per 5 Units) SC 05/30/25 08:59 30 unit QDAY KIP Administration Insulin Human Lispro 0 unit 04/29/25 17:00 05/01/25 12:47 Insulin Lispro (Admelog) 1 Unit/0.01 Ml Unit SC 05/29/25 16:59 3 unit AC KIP Administration Protocol Lactulose 10 gm 04/23/25 14:15 Lactulose Syrup 20 Gm/30 Ml Udc PO 05/23/25 14:14 X1 PRN CONSTIPATION Protocol Lidocaine 1 patch 04/22/25 16:48 04/24/25 04:34 Lidocaine 5% 1 Patch TOP 05/22/25 16:47 1 patch DAILY PRN Administration LOCALIZED PAIN Lisinopril 40 mg 04/25/25 09:00 04/26/25 08:45 Lisinopril 20 Mg Tablet PO 05/25/25 08:59 40 mg QDAY KIP Administration Methadone HCl 75 mg 04/27/25 09:00 05/01/25 08:10 Methadone Hcl 10 Mg Tablet PO 05/02/25 08:59 75 mg QDAY KIP Administration Nicotine 21 mg 04/21/25 09:00 05/01/25 08:09 Nicotine Patch 21 Mg/24 Hr Patch.Td24 TOP 05/21/25 08:59 21 mg QDAY KIP Administration Nitroglycerin 0.4 mg 04/20/25 08:14 04/27/25 23:33 Nitroglycerin 0.4 Mg Subl Btl #25 SL 0.4 mg Q5MIN PRN Administration CHEST PAIN Ondansetron HCl 4 mg 04/18/25 22:13 05/01/25 15:58 Ondansetron Inj 2 Mg/Ml Inj 2 Ml IVP 05/18/25 22:12 4 mg Q6H PRN Administration NAUSEA OR VOMITING Protocol Pantoprazole Sodium 40 mg 04/24/25 09:00 05/01/25 08:10 Pantoprazole 40 Mg Tablet PO 05/24/25 08:59 40 mg QDAY KIP Administration Protocol Patiromer 8.4 gm 05/01/25 10:45 05/01/25 13:39 Patiromer Calcium 8.4 Gm Packet (Non-Form) PO 05/31/25 10:44 8.4 gm QDAY KIP Administration Prednisone 15 mg 05/01/25 09:00 05/01/25 08:09 Prednisone 5 Mg Tablet PO 05/31/25 08:59 15 mg QDAY KIP Administration Fluticasone/Salmeterol 1 puff 04/19/25 07:00 05/01/25 06:41 Fluticasone/Salmeterol 250/50 14 Dose Inh INH 05/19/25 06:59 1 puff BIDRT KIP Administration Sennosides 1 tab 04/18/25 22:13 Senna Tablet PO 05/18/25 22:12 QDAY PRN constipation Protocol Sodium Chloride 3 ml 07/27/25 10:39 04/21/25 11:03 Sodium Chloride Rt [place] 0.9% 3 Ml Nebu INH 05/21/25 10:38 3 ml PRN PRN Administration SOLN Spironolactone 50 mg 04/19/25 09:00 04/19/25 09:53 Spironolactone 25 Mg Tablet PO 05/19/25 08:59 50 mg QDAY KIP Administration Plan Mrs. Diaz is a 64 year old female with a history of COPD (2-3L home O2), A-fib on Eliquis, hypertension, CKD stage IIIb, T2DM, polysubstance use disorder, history of ESBL UTI, Takotsubo cardiomyopathy [diagnosed 2023] who came for worsening shortness of breath. Patient was admitted for management of acute hypoxic failure due to COPD. #THEO on CKD stage IIIb, Perm HD catheter placed 04/29 (MW) #Uremia #CKD Stage IIIb Patient has a history of CKD with worsening kidney function with worsening mentation -Per nephrology due to repeatedly increase in BUN and kidney function and mentation, decision is made to start pt on HD. -Tunneled dialysis cath placed in the right IJ by the IR on 04/29/25 -Pt underwent dialysis session on 04/29, 05/01 and is scheduled for tuesday (05/03) #Acute on chronic hypoxic failure due to #COPD exacerbation #Nicotine Use Disorder/Current Smoker Patient endorsed worsening of shortness of breath and chest pain that led to her seeking treatment in the ED on 04/18/2025. Patient has been using her Trelegy inhaler once a day and her albuterol inhaler 4 times a day after her recent discharge on 04/06. Home medications were providing minimal relief. Patient had a light yellow sputum production. Due to the patient's COPD exacerbation history, this is most likely another COPD exacerbation. Patient's acute episode of dyspnea meets criteria for COPD exacerbation. Chest x-ray 04/18 negative for acute findings, repeat chest x-ray 04/21 also negative for acute findings VBG 04/18 pH 7.47, PCO2 36, PO2 72, O2 sat 97% ? Maintain patient's oxygen saturation between 88% and 92% given history of COPD ? Continue DuoNeb 3 mL PRN ? Continue prednisone 15 mg PO Qday ? Continue fluticasone/salmeterol 1 puff twice daily RT ? Continue to monitor patient's oxygen status ? Recommend CT chest scan in 3 to 6 months to follow-up on CTA chest on 04/03 ? Coccidioides panel not ordered due to recent negative on 04/04/2025 ? Discontinued ceftriaxone due to low suspicion of PNA given negative chest x- ray findings x 2 #Leukocytosis 2/2 steroid use - improving -No signs of active infections, pt has remained afebrile, WBC count is with in normal limits. Patient was producing light yellow sputum via cough and has a history of green mucus production. Patient is more susceptible to infection due to history of COPD and frequent steroid use. Viral respiratory panel negative 04/18, strep group A negative 04/18. WBC noted to be elevated throughout current admission, possibly due to increased steroid use to manage acute hypoxic failure due to COPD exacerbation. ? Patient completed azithromycin 500 mg 5 day course [04/19-04/23] -Pt is currently on prednisone 15mg PO ? Will continue to monitor with daily CBC #Constipation- resolved #Low lumbar back pain #Abdominal pain #Pancreatitis r/o Patient had abdominal pain 04/22 and 04/23. CT abdomen pelvis without contrast ordered due to concerns for possible acute process such as appendicitis. CT abdomen pelvis 04/23 negative for acute concerns or bowel obstructions, but large stool burden noted. Patient is on lactulose 10g as needed for constipation at home, potentially related to history of opioid use. Patient has low lumbar back pain that started 04/23. CT abdomen pelvis done on the same day that her low lumbar back pain started was negative for acute processes in her spine, with the only abnormality noted as advanced degenerative disc disease in L4-L5 and L5-S1. Very low suspicion for acute causes of abdominal and back pain given highly inconsistent pattern of pain. Further imaging highly unlikely to change current management of care. ? Restarted home lactulose 10 g as needed ? Ordered lactulose 30 gm one-time dose on 04/24 ? Will order lipase to rule out possible pancreatitis ? Lipase 04/25: 48, within normal limits ? Ordered lidocaine patch ? Pelvis ultrasound ordered, 04/24: Fundal fibroid degeneration and left ovarian simple cyst 7.1 x 5.8 x 5.4 cm #History of chest pain secondary to angina, vasospastic, possibly due to Prinzmetal angina - resolved #Chest pain- resolved Most likely musculoskeletal in origin due to continued coughing. Noncardiac etiology suspected. Troponins negative on 04/18 and 04/20. EKG 04/21 negative for acute ischemic changes. ? Will continue to anticipate improvement and worsening of chest pain depending on respiratory status, suspect that treatment of COPD will resolve chest pain ? Will continue patient's Eliquis ? Pain relief as indicated #Lower extremity edema (resolved) #History of Takatsubo cardiomyopathy [2023] #Right upper extremity edema #Right upper extremity thrombophlebitis r/o Patient presented with lower peripheral edema, had BNP of 116 on 04/18, and was given IV Lasix 40 mg one-time dose on 04/18. TTE showed normal left ventricular size and function with EF 60%, no wall motion abnormalities noted. Patient noted to have right upper extremity edema on 04/24. Given patient's history of peripheral IV on right arm lack of pain and erythema, and Eliquis use, there is low suspicion for thrombophlebitis. ? Will continue to monitor fluid status ? Received 1L NS on 04/22 per Nephrology recommendations ? Started patient on Lasix 40 mg IV twice daily with albumin 25 mg/kg twice daily schedule 30 minutes before Lasix per recommendations by Nephrology ? Discontinued Lasix 40 mg IV 04/25 and ordered glycopyrrolate 2 mg one-time dose per nephrology recommendations ? Ordered right upper extremity ultrasound to rule out right upper extremity thrombophlebitis ? RUE ultrasound 04/24 negative for thrombus #Paroxismal Atrial fibrilation, rate control #History of A-fib with RVR Patient has a history of atrial fibrillation with RVR. EKG 04/21 shows sinus rhythm. ? Continue diltiazem 180 mg daily ? Continue home Eliquis 5 mg p.o. twice daily ? Continue aspirin 81 mg daily ? Continue to hold home metoprolol #Primary Hypertension Patient has a history of hypertension on spironolactone, metazalone, lisinopril, and hydralazine at home. Patient presented to ED with BP of 137/82. ? Continue hydralazine 100 mg p.o. 3 times daily (hold if SBP <110) ? Hold spironolactone 50 mg p.o. daily ? Continue diltiazem 180 mg p.o. daily ? Hold home lisinopril 40 mg daily, home clonidine 0.1 mg twice daily, and home amlodipine 10 mg daily #Insulin dependent Type 2 diabetes mellitus #Hyperglycemia, likely due to steroid use ? Will continue to monitor fasting glucose ? Continue intermediate sliding scale ? Continue glargine 30 units daily ? Continue insulin lispro 4 units with meals ? Educated the patient on not eating food from outside the hospital ? Obtain FreeStyle Dante for patient to more closely monitor blood glucose #Chronic hepatitis C infection Patient tested positive for hepatitis C antibody on 04/21/2025 and 02/18/2024. ? Will continue to monitor with daily CMP -Pt will need to follow up outpatient with infectious disease specialist for further work up and treament options #Polysubstance use disorder (methamephetamine and heroin) Patient has history of methamphetamine and heroin abuse. On methadone outpatient. ? Will decrease methadone to 75 mg p.o. daily #Anxiety Patient has history of anxiety. ? Will hold patient's home BuSpar 5 mg p.o. daily and diazepam 5 mg p.o. twice daily PRN due to increased somnolence - Hold Baclofen Health Maintenance Disposition: Telemetry, pending permanent dialysis cath on tuesday DVT Prophylaxis: Eliquis-Being Held GI Prophylaxis: Pantoprazole Diet: Cardiac diet with consistent low carb Lines: Peripheral IV Code Status: FULL Assessment and plan discussed with my attending physician Dr. Wilmer Ghotra (PGY-2)- Internal medicine resident Attending Provider Attestation/Addendum I attest that I was physically present for the evaluation, physical examination, lab and imaging review of the patient with the residents. I discussed the case with the residents and agree with the findings and plans of care as documented above. At bedside, patient appears comfortable and denies any new complaints. Vitals are stable, noted to have potassium of 6.2 this morning and glucose of 373 this morning. Resumed glargine 30. Patient also underwent hemodialysis. Awaiting placement. Lul Guillen MD
[2025-05-01] MEDS: ACETAMINOPHEN 325 MG TABLET 650 MG PO (21:38)
[2025-05-01] MEDS: INSULIN LISPRO (AdmeLOG) 1 UNIT/0.01 ML UNIT 3 UNIT SC (22:18)
[2025-05-02] VITALS (16 sets, daily range): BP systolic 126–164; BP diastolic 66–86; PULSE 73–104; RESP 13–20; TEMP 36.1–36.6; O2SAT 92–99
--- NOTE | 2025-05-02 00:36 | PC.NURSE ---
Patient arrived to unit from room 277 in telemetry unit to 368 in [facility] department.
[2025-05-02] MEDS: ONDANSETRON INJ 2 MG/ML INJ 2 ML 4 MG IVP (02:02)
[2025-05-02] MEDS: ALBUTEROL/IPRATROPIUM (Duoneb) RT SOL 3 ML NEBU INH ×6 (02:58→22:12)
[2025-05-02] MEDS: guaiFENesin SYRUP 200 MG/10 ML UDC 100 MG PO ×2 (04:52→14:18)
[2025-05-02] MEDS: ACETAMINOPHEN 325 MG TABLET 650 MG PO (05:22)
[2025-05-02] MEDS: FLUTICASONE/SALMETEROL 250/50 14 DOSE INH 1 PUFF INH ×2 (06:23→18:17)
--- NOTE | 2025-05-02 07:17 | ESPR_ITS ---
Documentation for date of: 05/02/25 Subjective Subjective Interval history: Ms. Diaz is a 63-year-old female with past medical history of COPD on 2 L home oxygen, A-fib, hypertension, CKD stage IIIb, [id number] type 2 diabetes, polysubstance use disorder presents to the ED on 04/18 with increased episodes of shortness of breath. Patient states that ever since being discharged on 04/06 for COPD exacerbation she was doing okay; however, tonight she started developing increased level of shortness of breath. Patient states that she tried using her home inhalers including albuterol but those did not help her symptoms. Patient denies having any sick contacts; however, she is reporting some sore throat which has worsened in the past several days. Patient otherwise denies any fever/chills or any other concerning cardiac symptoms at this time. Nephrology consulted for management of THEO. Home medications included amlodipine, aspirin, BuSpar, clonidine, Valium, Eliquis, Trelegy, Lasix, hydralazine, Basaglar, DuoNeb, lactulose, lisinopril, meclizine, methadone, metolazone, metoprolol, Aldactone 04/24/2025: Patient seen and examined at bedside. Reports intense, constant pain across lower back and at R abdomen. Breathing slightly improved. BUN decreased to 87, Cr improved at 1.8. Good urine output of 4.7L over last 24h. Recommend to continue IV lasix 40 mg BID with albumin 25 g BID for 3 days (04/23- ). 04/25/2025: Patient seen and examined at bedside. Abdominal pain and back pain are mild and better controlled. Much improved shortness of breath. BUN increased 90, and recommend to stop diuretics. Cr improved from 1.8 to 1.7. 04/26/2025: Patient seen and examined at bedside. pain is better controlled, and less shortness of breath. BUN 107, Cr 2.0. Urine output 2.1L. Plan for HD via perm cath on Tuesday04/29/25, CTM BUN, pt may require vas catheter over the weekend if continues to increase. Concern for somnolence on exam later today, query if somnolence is 2/2 high methadone and buspar doses that patient takes chronically. 04/27/2025: Patient seen and examined at bedside. Patient has decreased somnolence compared to exam yesterday. Patient's mother in law seen at bedside visiting. BUN 77 from 107, creatinine 1.9 from 2.0 K 5.4 from 5.3. Continue plan for permacatheter on 04/29/2025. No HD today 04/28/2025 patient currently seen in telemetry. She seems to be more sleepy. Receiving high-dose methadone. Baclofen held. Urine output 1300 mL. Medications/labs reviewed. Patient with recurrent episodes of congestive heart failure exacerbation and decided to proceed with dialysis to prevent recurrent hospitalizations. She agreed. Diuretics were held. Anticoagulation held. She will receive dialysis catheter tomorrow. Of note her white count is elevated at 19.6. No source identified. Hemoglobin 9. Sodium 139, potassium 5, BUN 89, creatinine 1.6, glucose 45, calcium 9.2, magnesium is 2.6, LFTs normal, albumin 3.5. Abdominal x-ray showed constipation. 04/29/2025 patient seen and examined at [facility], pt is awake and interactive. On exam pt has wet lungs, crackles and rales bilaterally,UOP 1200. medications and labs reviewed. anticoagulation held pending HD catheter placement today, pt expresses some anxiety surrounding the placement of catheter. WBC downtrending 15.7 from 19.6. query 2/2 steroid use. Cr 1.6 from 1.6, BUN 81 from 89. Plan for HD today following cath placement. start Chest PT to help with expectoration of sputum. 04/30/2025: Patient seen and examined at bedside, pt is awake and interactive. On exam pt has reduced crackles and rales bilaterally, UOP 2600. BUN 40 from 81, Cr 1.2 from 1.8. cont Chest PT and Up to chair BID with assistance. HD today with fluid removal. 1 unti PRBC ordered to give with HD 05/01/2025: Patient seen and examined at bedside, pt is awake and interactive. she reports that when bathing yesterday, they located a tic on her lower back. no rash present. On exam lung mehta have mild ronchus bilaterally. and trace BLE edema. [id number], BUN 52 from 40, Cr 1.3, K 6.2 from 4.6. plan for HD today, pt will likely need HD 3x/week outpatient setting. 05/02/2025: Patient seen and examined at bedside. Pt is awake and interactive. On auscultation, BL expiratory wheezing improved from prior, and trace ronchi, trace BLE edema, UOP 600. Plan for discharge today with HD scheduled M/W/F. Exam Vital Signs Temp Pulse Resp BP Pulse Ox O2 Del Method O2 Flow Rate 98 F 87 18 164/77 H 98 Nasal Cannula 2 05/02/25 04:00 05/02/25 06:25 05/02/25 06:25 05/02/25 05:22 05/02/25 06:25 05/02/25 04:00 05/02/25 06:25 Narrative Exam CONSTITUTIONAL: Patient denies any fever, chills. HEENT: Denies any visual disturbances or hearing problems. CARDIOVASCULAR: Patient denies any chest pain. c/o shortness of breath, swelling in the lower extremities. PULMONARY: intermittent cough, expiratory wheezing, and trace ronchi on exam, improved from prior GASTROINTESTINAL: Patient denies any abdominal pain, constipation, nausea, vomiting, diarrhea. GENITOURINARY: Patient denies any urinary symptoms of burning or frequency or hematuria, denies any form in the urine. SKIN: no bullseye rash. MUSCULOSKELETAL: c/o LBP, joint pains.trace BLE edema NEUROLOGICAL: pt awake and alert during exam, no intermittent sleepiness. PSYCHIATRIC: admits depression or anxiety. LYMPHATICS : No lymphadenopathy Objective Labs 05/02/25 07:10 05/02/25 07:10 ABG Interpretation ABG results: 04/18/25 20:40 VBG pH 7.47 VBG pCO2 36 VBG pO2 72 H VBG Base Excess 2 Quality Measures Quality Measures VTE prophylaxis Assessment & Plan Assessment Current Active Medications: Generic Name Dose Route Start Last Admin Trade Name Freq PRN Reason Stop Dose Admin Acetaminophen 650 mg 04/19/25 07:42 05/02/25 05:22 Acetaminophen 325 Mg Tablet PO 05/18/25 22:12 650 mg Q6H PRN Administration Mild Pain 1-3 or fever >100.1 Albuterol/Ipratropium 3 ml 04/22/25 11:00 05/02/25 06:23 Albuterol/Ipratropium (Duoneb) Rt Blanca 3 Ml Nebu INH 05/22/25 10:59 3 ml Q4HRRT KIP Administration Amlodipine Besylate 10 mg 04/25/25 09:00 04/28/25 08:50 Amlodipine Besylate 5 Mg Tablet PO 05/25/25 08:59 10 mg QDAY KIP Administration Apixaban 5 mg 04/29/25 21:00 05/01/25 21:19 Apixaban 2.5 Mg Tablet PO 05/29/25 20:59 5 mg Q12HR KIP Administration Aspirin 81 mg 04/30/25 09:00 05/01/25 08:10 Aspirin Ec 81 Mg Tabec PO 05/30/25 08:59 81 mg QDAY KIP Administration Dextrose 25 ml 04/18/25 22:19 04/29/25 05:09 Dextrose 50%-Water Inj 50 Ml Syringe IV 05/18/25 22:18 10 ml Q15MIN PRN Administration BG 50-70 responsive npo pt Dextrose 50 ml 04/18/25 22:19 04/28/25 06:52 Dextrose 50%-Water Inj 50 Ml Syringe IV 05/18/25 22:18 50 ml Q15MIN PRN Administration BG <50 OR BG <70 & pt unresponsive Diltiazem HCl 180 mg 04/20/25 09:00 05/01/25 12:22 Diltiazem Cd 180 Mg Capcr PO 05/20/25 08:59 Not Given QDAY KIP Glucagon 1 mg 04/18/25 22:19 Glucagon Inj 1 Mg Vial IM Q15MIN PRN BG <70, and no IV access Guaifenesin 100 mg 04/29/25 08:26 05/02/25 04:52 Guaifenesin Syrup 200 Mg/10 Ml Udc PO 05/29/25 08:25 100 mg QID PRN Administration COUGH Protocol Heparin Sodium (Porcine) 3,800 unit 04/29/25 19:06 05/01/25 11:50 Heparin Sod Inj 1000 Unit/Ml Vial 10 Ml INDWELLCAT 05/13/25 19:05 3,800 unit PRN PRN Administration DIALYSIS Hydralazine HCl 100 mg 04/28/25 14:39 05/02/25 05:22 Hydralazine Hcl 25 Mg Tablet PO 05/19/25 08:44 100 mg TID KIP Administration Albumin Human 25 gm in 100 mls @ 100 mls/min 04/29/25 17:08 Albuminar-25 Ivpb IV PRN PRN DIALYSIS Insulin Glargine 30 unit 04/30/25 09:00 05/01/25 08:10 Insulin Glargine (Lantus) 5 Unit/0.05 Ml (Per 5 Units) SC 05/30/25 08:59 30 unit QDAY KIP Administration Insulin Human Lispro 0 unit 04/29/25 17:00 05/01/25 17:25 Insulin Lispro (Admelog) 1 Unit/0.01 Ml Unit SC 05/29/25 16:59 4 unit AC KIP Administration Protocol Lactulose 10 gm 04/23/25 14:15 Lactulose Syrup 20 Gm/30 Ml Udc PO 05/23/25 14:14 X1 PRN CONSTIPATION Protocol Lidocaine 1 patch 04/22/25 16:48 04/24/25 04:34 Lidocaine 5% 1 Patch TOP 05/22/25 16:47 1 patch DAILY PRN Administration LOCALIZED PAIN Lisinopril 40 mg 04/25/25 09:00 04/26/25 08:45 Lisinopril 20 Mg Tablet PO 05/25/25 08:59 40 mg QDAY KIP Administration Methadone HCl 75 mg 04/27/25 09:00 05/01/25 08:10 Methadone Hcl 10 Mg Tablet PO 05/02/25 08:59 75 mg QDAY KIP Administration Nicotine 21 mg 04/21/25 09:00 05/01/25 08:09 Nicotine Patch 21 Mg/24 Hr Patch.Td24 TOP 05/21/25 08:59 21 mg QDAY KIP Administration Nitroglycerin 0.4 mg 04/20/25 08:14 04/27/25 23:33 Nitroglycerin 0.4 Mg Subl Btl #25 SL 0.4 mg Q5MIN PRN Administration CHEST PAIN Ondansetron HCl 4 mg 04/18/25 22:13 05/02/25 02:02 Ondansetron Inj 2 Mg/Ml Inj 2 Ml IVP 05/18/25 22:12 4 mg Q6H PRN Administration NAUSEA OR VOMITING Protocol Pantoprazole Sodium 40 mg 04/24/25 09:00 05/01/25 08:10 Pantoprazole 40 Mg Tablet PO 05/24/25 08:59 40 mg QDAY KIP Administration Protocol Patiromer 8.4 gm 05/01/25 10:45 05/01/25 13:39 Patiromer Calcium 8.4 Gm Packet (Non-Form) PO 05/31/25 10:44 8.4 gm QDAY KIP Administration Prednisone 15 mg 05/01/25 09:00 05/01/25 08:09 Prednisone 5 Mg Tablet PO 05/31/25 08:59 15 mg QDAY KIP Administration Fluticasone/Salmeterol 1 puff 04/19/25 07:00 05/02/25 06:23 Fluticasone/Salmeterol 250/50 14 Dose Inh INH 05/19/25 06:59 1 puff BIDRT KIP Administration Sennosides 1 tab 04/18/25 22:13 Senna Tablet PO 05/18/25 22:12 QDAY PRN constipation Protocol Sodium Chloride 3 ml 04/21/25 10:39 04/21/25 11:03 Sodium Chloride Rt Blanca 0.9% 3 Ml Nebu INH 05/21/25 10:38 3 ml PRN PRN Administration SOLN Spironolactone 50 mg 04/19/25 09:00 04/19/25 09:53 Spironolactone 25 Mg Tablet PO 05/19/25 08:59 50 mg QDAY KIP Administration Plan Christina Diaz is a 64-year-old F with a PMH of ESBL UTI, COPD on 2-3 L at home, atrial fibrillation on Eliquis, Takotsubo's cardiomyopathy, substance use disorder (heroin and methamphetamine), IDDM, HTN, viral meningitis, and stroke who was admitted for acute on chronic COPD and CHF exacerbation, HD initiated, tolerating well. plan for discharge today, HD schedule M/W/ #THEO on CKDIIIb--patient with cardiorenal syndrome and multiple episodes of CHF exacerbation and hospitalizations. #HD M/W/ To prevent recurrent hospitalizations- decided to proceed with twice weekly dialysis. Had a long conversation with the patient who agreed. Perm cath placed 04/29. Hep panel: Hep C reactive PPD: Left forearm on 04/29 1 unit PRBC was given while on the floor not during HD on 05/01 K 6.2 from 4.6, Cr 1.3, BUN 52 from 40 on 05/02 K 5 from 6.2, Cr. 1.2 from 1.3, BUN 38 from 52 HD: 04/29, 04/30, 05/01 Plan: -no HD today -plan for HD M/W/F outpatient #Acute Hypoxic Respiratory Failure secondary to - improved #COPD// CHF Exacerbation - cont chest pt - consider guifenicin or glycopyrrolate for secretions - Up to chair with assistance BID. #Leukocytosis - now downtrending 11 from 15 == no source identified #Atrial Fibrillation, rate controlled #Hypertension --systolic blood pressure 140s-160s #Chronic Hepatitis C #Type 2 Diabetes Mellitus, Insulin-Dependent - A1c, 6.3, 03/2025 - AM Gluc 221 #Substance Use Disorder (Methamphetamine and Heroin) #Anxiety/depression #Tick vs bed bug-- no bulls eye rash on exam -Management per primary tea Plan discussed with nephrology attending Dr. Yao Paniagua MD Internal Medicine PGY-1 Attending Provider Attestation/Addendum Patient seen and examined with resident physician Dr. Paniagua. Note reviewed, agree with findings and recommendations. Patient with cardiorenal syndrome and needing multiple hospitalizations. To avoid Will initiate dialysis. Patient had a right IJ PermCath placed by IR. Patient so far received 3 dialysis sessions. Patient needs outpatient dialysis arrangements. Spoke to primary team--scheduled for MWF schedule
[2025-05-02 07:43] LABS: Basophils # (Auto) 0.0 Thou/mm3 (0.0-0.2); Basophils % (Auto) 0 % (0-2.5); Eosinophils # (Auto) 0.2 Thou/mm3 (0.0-0.5); Eosinophils % (Auto) 1 % (0-10); Hematocrit 31.4 % (36.0-46.0); Hemoglobin 10.1 g/dL (12.0-16.0); Immature Granulocytes Auto 0.14 Thou/mm3 (0.00-0.00); Lymphocytes # (Auto) 2.2 Thou/mm3 (1.0-4.8); Lymphocytes % (Auto) 16 % (10-50); Mean Corpuscular HGB Conc 32.2 g/dl (31.0-37.0); Mean Corpuscular Hemoglobin 26.1 pg (25.0-35.0); Mean Corpuscular Volume 81 fL (80-100); Monocytes # (Auto) 1.0 Thou/mm3 (0.0-0.8); Monocytes % (Auto) 7 % (0-12); Neutrophils # (Auto) 10.7 Thou/mm3 (1.8-7.7); Neutrophils % (Auto) 75 % (37-80); Nucleated Red Blood Cell # 0.00 Thou/mm3 (0.00-0.00); Nucleated Red Blood Cell % 0 /100 WBC (0); Platelet Count 95 Thou/mm3 (140-440); RDW Standard Deviation 43.7 fL (36.4-46.3); Red Blood Count 3.87 Miln/mm3 (4.00-5.20); White Blood Count 14.3 Thou/mm3 (3.6-11.0)
[2025-05-02] MEDS: INSULIN LISPRO (AdmeLOG) 1 UNIT/0.01 ML UNIT SC ×3 (07:52→17:03)
[2025-05-02 08:06] LABS: Alanine Aminotransferase 33 U/L (10-49); Albumin, Serum 3.2 gm/dL (3.4-4.8); Albumin/Globulin Ratio 2.1 (1.2-2.2); Alkaline Phosphatase 47 U/L (46-116); Anion Gap 7 (7-16); Aspartate Amino Transferase 20 U/L (0-34); BUN/Creatinine Ratio 32 Ratio (12-20); Bilirubin,Total 0.7 mg/dL (0.3-1.2); Blood Urea Nitrogen 38 mg/dL (9-23); Calcium 8.2 mg/dL (8.3-10.6); Calcium (Corrected) 8.8 mg/dL (8.5-10.1); Carbon Dioxide 27.2 mMol/L (20.0-31.0); Chloride 103 mMol/L (98-107); Creatinine (Component) 1.2 mg/dL (0.6-1.3); Estimated Creatinine Clearance 49.3 mL/min (>60); Globulin 1.5 gm/dL (2.3-3.5); Glucose 215 mg/dL (74-106); Magnesium 1.5 mg/dL (1.6-2.6); Osmolality,Calculated 288 (275-295); Phosphorous 2.3 mg/dL (2.4-5.1); Potassium 5.0 mMol/L (3.4-5.1); Sodium 137 mMol/L (136-145); Total Protein 4.7 gm/dL (5.7-8.2); eGFR 51 See Note
[2025-05-02] MEDS: PANTOPRAZOLE 40 MG TABLET PO (08:15)
[2025-05-02] MEDS: ASPIRIN EC 81 MG TABEC PO (08:15)
[2025-05-02] MEDS: APIXABAN 2.5 MG TABLET 5 MG PO ×2 (08:15→20:38)
[2025-05-02] MEDS: INSULIN GLARGINE (Lantus) 5 UNIT/0.05 ML (PER 5 UNITS) 30 UNIT SC (08:19)
[2025-05-02] MEDS: DILTIAZEM CD 180 MG CAPCR PO (08:19)
[2025-05-02] MEDS: NICOTINE PATCH 21 MG/24 HR PATCH.TD24 TOP (08:20)
[2025-05-02] MEDS: INSULIN GLARGINE (Lantus) 5 UNIT/0.05 ML (PER 5 UNITS) SC (08:44)
[2025-05-02] MEDS: Magnesium Sulfate 4 GM Ivpb 4 GM/50 ML BAG IV (08:45)
[2025-05-02] MEDS: PATIROMER CALCIUM 8.4 GM PACKET (NON-FORM) PO (08:45)
--- NOTE | 2025-05-02 08:45 | EKG_ITS ---
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
--- NOTE | 2025-05-02 09:17 | PC.SS ---
SS spoke to Ale from [facility] who states she can accept pt later today due to waiting for their pt to d/c.
--- NOTE | 2025-05-02 09:28 | PC.SS ---
SS spoke to Con at [phone] who states patient's dtr, Mary Anne is still sleeping and he will give her message to call SS. provided Con with phone#. SS left voicemail for dtr, Mary Anne. SS also left voicemail for her friend [place] (friend pt lives with phone# [phone]) informing him pt will d/c to [facility] today.
[2025-05-02] MEDS: POLYETHYLENE GLYCOL 17 GM PACKET 34 GM PO (11:28)
[2025-05-02] MEDS: SENNA/DOCUSATE SOD 1 TAB TABLET 2 TAB PO (11:28)
[2025-05-02] MEDS: LACTULOSE SYRUP 20 GM/30 ML UDC PO (12:28)
--- NOTE | 2025-05-02 13:22 | ESDS_ITS ---
<Statement entered by Rhea Ferguson DO - 05/02/25 15:09> I, Rhea Ferguson DO, attest that I was physically present for the krueger portions of the service and evaluated the patient with the resident and I reviewed and discussed the case with the resident and agree with the resident's findings and plans of care as documented above Planned Discharge Date 05/02/25 DS: Providers Provider Date of admission: 04/18/25 22:14 Primary care physician: Apolinar Tai MD Admitting Provider: Lul Guillen MD Attending Provider on Admission: Lul Guillen MD Consults: 04/21/25 10:38 Consult to Nephrology Routine Comment: Consulting Provider: Rylee Samayoa 04/21/25 14:00 Referral Physical Therapy Routine Comment: Physician Instructions: Attending Provider on DC: Cristina Ghotra MD Discharging Provider: Cristina Ghotra MD DS: Diagnosis Problem List Completed Was Problem List Reviewed/Reconciled?: Yes Hospital Course Hospital Course Hospital course: Christina Diaz a 64 year old female with a past medical history of COPD on 2-3 L home oxygen, substance use disorder (methamphetamine and heroin) currently on methadone, Atrial fibrillation on Eliquis, HTN, CKD stage IIIB, and type II diabetes mellitus presented to [facility] ED on 04/18/2025 complaining of shortness of breath and was admitted to the hospital for management of COPD exacerbation. Patient was also found to have THEO on CKD which over the course of hospitalization was not improving but rather worsening. Patient's BUN was also increasing during the course of hospitalization. Nephrology was consulted for patient's worsening kidney function and electrolytes imbalance. Decision was made to place tunneled dialysis catheter on 04/29/25 and patient underwent dialysis for the correction of BUN and electrolytes. For COPD patient was given scheduled breathing treatments and was started on high-dose steroids initially and was transitioned to p.o. prednisone with a taper course on discharge will continue. Patient continued to improve and her oxygen requirements were back to her baseline and patient was saturating well on 2 L of oxygen on room air. Workup and imaging was negative for cocci as well as pneumonia therefore no antibiotics were continued during this hospitalization. Initially during hospitalization patient was increasingly somnolent due to methadone and other medications buspirone and diazepam. Now that patient requires hemodialysis patient's methadone was decreased from 100 mg to 75 mg daily and patient's buspiron, diazepam and baclofen were discontinue. Pt continued to exhibit significant improvement in her energy, was able to stay awake most of the day and pain was improving. Pt underwent PT evaluation, pt is recommended to go to rehab. Patient is hemodynamically stable, is approved for outpatient dialysis chair for Tuesday and Tuesday, tolerating oral diet and having regular bowel movements, pain is well-controlled with tapered methadone to 75mg daily (Pt was on 100mg Qday), saturating above 92% on 2L oxygen via nasal cannula. Pt will continue dialysis outpatient and will continue medically administered treatment at methadone clinic. Pt is stable to be discharged to fdc facility. Discharge Recommendations -Please follow up with your primary care provider within one week of discharge -If your symptoms worsen,please seek immediate medical attention and return to your nearest emergency room -If you do not have a primary care provider, you may follow up at the [facility] at [address], [place] [address], Dialysis Chair time is Tuesday at [facility] [place] [address] [place] [address] phone number: [phone]. First dialysis session is Saturday May 03, 2025 at 6:00am. [facility] [phone] will sheepskin pickler pt May 03, 2025 at 5:40am from [facility] and return time is 9:50am. Ref# [id number]. Hospitalization Diagnosis #THEO on CKD stage IIIb 2/2 Cardiorenal syndrome #Uremia #CKD Stage IIIb #Acute on chronic hypoxic failure due to #COPD exacerbation #Nicotine Use Disorder/Current Smoker #Leukocytosis 2/2 steroid use - improving #Constipation- resolved #Low lumbar back pain #Abdominal pain #Pancreatitis r/o #History of chest pain secondary to angina, vasospastic, possibly due to Prinzmetal angina - resolved #Chest pain- resolved #Lower extremity edema (resolved) #History of Takatsubo cardiomyopathy [2023] #Right upper extremity edema #Right upper extremity thrombophlebitis r/o #Paroxysmal Atrial fibrillation, rate control #History of A-fib with RVR #Primary Hypertension #Insulin dependent Type 2 diabetes mellitus #Hyperglycemia, likely due to steroid use #Chronic hepatitis C infection #Anxiety #Hx of Polysubstance use disorder (methamephetamine and heroin) Assessment and plan discussed with my attending physician Dr. Phyllis Ghotra (PGY-2)- Internal medicine resident Time Spent with Patient Time attestation: Total time spent providing and/or coordinating discharge services: Time spent: Greater than 30 minutes Exam Vital Signs Temp Pulse Resp BP Pulse Ox O2 Del Method O2 Flow Rate 97.3 F 92 18 132/66 H 92 L Nasal Cannula 2 05/02/25 12:00 05/02/25 12:05/02/25 12:00 05/02/25 12:05/02/25 12:05/02/25 12:05/02/25 12:00 Narrative Exam GENERAL: Awake and alert x3 obese female, cooperative, Not in acute distress NEURO: no focal neurological deficits noted HEENT: Atraumatic, Normocephalic. mucous membranes moist. Eyes open, symmetrical, & clear, HD catheter in IJ noted on right side of chest HEART: Normal Heart Sounds LUNGS: Clear to auscultation with no wheezing or crackles. coarse breath sounds ABDOMEN: soft, non-distended, non-tender, bowel sounds heard, no guarding or rebound tenderness SKIN: no Rash or ecchymoses EXTREMITIES: No edema, no tenderness, able to move all 4 extremities, pedal pulses palpated Discharge Plan Plan Patient Disposition: HOME (Self Care) Patient condition on transfer: Stable Care Plan Goals: -Please follow up with your primary care provider within one week of discharge -If your symptoms worsen,please seek immediate medical attention and return to your nearest emergency room -If you do not have a primary care provider, you may follow up at the [facility] at [address], [place] [address], Dialysis Chair time is Tuesday at [facility] with Dr. [address] [place], [place] [address] phone number: [phone]. First dialysis session is Saturday May 03, 2025 at 6:00am. [facility] will sheepskin pickler pt May 03, 2025 at 5:40am from [facility] and return time is 9:50am. Ref# [id number]. Prescriptions/Referrals Prescriptions/Med Rec: New diltiazem HCl 180 mg Capsule,Extended Release 24hr 180 mg PO QDAY 30 Days Qty: 30 0RF (DME) FreeStyle Dante 3 Sensor Device See Rx Instructions .Route Qty: 1 3RF Rx Instructions: As directed (DME) FreeStyle Dante 3 [place] Misc See Rx Instructions .Route Qty: 1 0RF Rx Instructions: As directed methadone 10 mg tablet 75 mg PO QDAY MDD 75 30 Days Qty: 225 0RF prednisone 5 mg Tablet See Taper PO QDAY Qty: 41 0RF Taper: Prednisone Taper 15 mg DAILY for 5 Days and 0 Hour 10 mg DAILY for 7 Days and 0 Hour 5 mg DAILY for 7 Days and 0 Hour 2.5 mg DAILY for 7 Days and 0 Hour nicotine 21 mg/24 hr Patch 24 Hour 21 mg top QDAY 10 Days Qty: 10 0RF Veltassa 8.4 gram Powder In Packet 8.4 g PO QDAY 30 Days Qty: 30 0RF sennosides [Senna Lax] 8.6 mg Tablet 8.6 mg PO QDAY PRN (Reason: constipation) Qty: 30 0RF insulin lispro 100 unit/mL Solution See Protocol SCi AC Qty: 10 0RF Protocol: Insulin Corrective High-Dose Regimen Condition: Fingerstick Blood Glucose Dose/Route: Insulin Units Condition: 141-180 mg/dl Dose/Route: 6 units/SQ Condition: 181-220 mg/dl Dose/Route: 8 units/SQ Condition: 221-260 mg/dl Dose/Route: 10 units/SQ Condition: 261-300 mg/dl Dose/Route: 12 units/SQ Condition: 301-350 mg/dl Dose/Route: 14 units/SQ Condition: 351-400 mg/dl Dose/Route: 16 units/SQ Condition: greater than 400 mg/dl Dose/Route: 18 units/SQ Continued albuterol sulfate 90 mcg/actuation HFA aerosol inhaler 1 puff inhalation QID PRN (Reason: shortness of breath or wheezing) Qty: 8.5 0RF aspirin 81 mg tablet,delayed release (DR/EC) 81 mg PO QDAY Qty: 30 0RF lactulose 10 gram/15 mL solution 10 g PO QDAY PRN (Reason: constipation) Qty: 3785 0RF lidocaine 5 % adhesive patch,medicated 1 patch topical QDAY Qty: 30 0RF Rx Instructions: leave on most painful area for up to 12 hrs ipratropium-albuterol 0.5 mg-3 mg(2.5 mg base)/3 mL solution for nebulization 3 ml inhalation Q8H PRN (Reason: shortness of breath) Qty: 90 0RF ondansetron 4 mg tablet,disintegrating 4 mg PO Q8H PRN (Reason: nausea and vomiting) Qty: 10 0RF meclizine 50 mg tablet 50 mg PO BID PRN (Reason: dizziness or vertigo) Qty: 10 0RF Proair Digihaler 90 mcg/actuation aero powdr breath act w/sensor 2 inh inhalation Q6H PRN (Reason: shortness of breath or wheezing) Qty: 1 0RF Eliquis 5 mg tablet 5 mg PO Q12H Patient Comments: TAKE ONE TABLET BY MOUTH TWICE DAILY FOR THE HEART insulin glargine [Basaglar KwikPen U-100 Insulin] 100 unit/mL (3 mL) insulin pen 26 unit subcut QAM furosemide [Lasix] 20 mg tablet 20 mg PO QAM 30 Days Qty: 30 0RF hydralazine 100 mg tablet 100 mg PO TID loratadine [Allergy Relief (loratadine)] 10 mg tablet 10 mg PO QDAY Patient Comments: TAKE ONE TABLET BY MOUTH EVERY DAY FOR ALLERGY Trelegy Ellipta 200-62.5-25 mcg blister with device 1 inh inhalation QDAY Qty: 60 1RF Discontinued prednisone 50 mg tablet 50 mg PO QDAY Qty: 7 0RF diazepam [Valium] 5 mg tablet 5 mg PO BID PRN (Reason: muscle spasm) Qty: 14 0RF methadone 10 mg/5 mL Solution 100 mg PO QDAY nitroglycerin 0.4 mg Tablet, Sublingual 0.4 mg BUCCAL Q5MIN PRN (Reason: Chest Pain) buspirone 5 mg tablet 5 mg PO QDAY spironolactone 50 mg tablet 50 mg PO QDAY metoprolol succinate 25 mg tablet extended release 24 hr 25 mg PO QDAY lisinopril 40 mg tablet 40 mg PO QDAY clonidine HCl 0.1 mg tablet 0.1 mg PO BID Patient Comments: TAKE ONE TABLET BY MOUTH TWICE DAILY metolazone 5 mg tablet 5 mg PO QDAY amlodipine 5 mg tablet 10 mg PO QDAY Patient Comments: TAKE TWO TABLETS BY MOUTH EVERY DAY FOR BLOOD PRESSURE lisinopril 10 mg tablet 10 mg PO QDAY 30 Days Qty: 30 0RF Referrals: Apolinar Tai MD [Primary Care Provider] - Patient/Caregiver Discharge Instructions Print Language: Romansh Stand Alone Forms: Kaylynn Award Info., Patient Portal Info Letter Discharge Order Discharge Orders: Discharge (Routine); Ordered 05/02/25 Ordered By: Cristina Ghotra Quality Discharge Quality Measures VTE therapy
--- NOTE | 2025-05-02 15:17 | PC.NURSE ---
Pt took out her IV. No active IV in place and no iv meds to be given. MD askew
--- NOTE | 2025-05-02 15:45 | PC.NURSE ---
Patient is concerned about her Methadone dose at SNF, assured patient that discharge will happen once all needs are addressed. Patient is anxious and worried but agreed with the plan.
--- NOTE | 2025-05-02 16:09 | PC.SS ---
SS has setup gurney transportation with Beny from [email or web address] for [address]pm to [facility]. Ref# [id number]. has informed them pt is requiring O2 during transportation and requested [facility]. has sent patient's facesheet and physician signed ambulance form to [facility]. SS has spoken to Sherie from [facility] and transport is set for 7pm. Pt had concerns about her going to the [facility]. Pt explained she goes to [facility] every Tuesday for week supply. SS has called and spoken to Elke who explained pt has not missed 30 days and is able to get her methadone dose for the week due to being hospitalized. Pt is aware to present her d/c paper work to Clinic. has called Jonatan from [facility] to schedule new appointment to the [facility]one Clinic. pouako kura kaupapa maori from [facility] at 5:40, take pt to [facility], pick her up at 9:50 take pt to [facility] Clinic and return to [facility] at 10:50am. Pt is aware. Ale from [facility] is aware.
[2025-05-02] MEDS: ONDANSETRON ODT 4 MG TABRAP PO (17:20)
[2025-05-02] MEDS: INSULIN LISPRO (AdmeLOG) 1 UNIT/0.01 ML UNIT 6 UNIT SC (20:38)
[2025-05-03] VITALS (27 sets, daily range): BP systolic 98–170; BP diastolic 59–92; PULSE 73–103; RESP 17–20; TEMP 36.1–36.8; O2SAT 94–99; BMI 27.1
[2025-05-03] MEDS: guaiFENesin SYRUP 200 MG/10 ML UDC 100 MG PO (01:40)
[2025-05-03] MEDS: ONDANSETRON ODT 4 MG TABRAP PO (02:38)
[2025-05-03] MEDS: ALBUTEROL/IPRATROPIUM (Duoneb) RT SOL 3 ML NEBU INH ×4 (03:09→14:51)
--- NOTE | 2025-05-03 05:22 | PC.NURSE ---
dr coker notified of pt stating her throat hurts and she feels like she cant swallow. Pt is swallowing with no difficulty other than stated pain. Dr coker states he will pass it onto day team.
--- NOTE | 2025-05-03 06:30 | PC.NURSE ---
dr coker made aware that the patient had no lab orders for this AM.
[2025-05-03] MEDS: FLUTICASONE/SALMETEROL 250/50 14 DOSE INH 1 PUFF INH (06:53)
[2025-05-03] MEDS: ASPIRIN EC 81 MG TABEC PO (08:57)
[2025-05-03] MEDS: APIXABAN 2.5 MG TABLET 5 MG PO (08:57)
[2025-05-03] MEDS: DILTIAZEM CD 180 MG CAPCR PO (08:57)
[2025-05-03] MEDS: NICOTINE PATCH 21 MG/24 HR PATCH.TD24 TOP (08:58)
[2025-05-03] MEDS: INSULIN GLARGINE (Lantus) 5 UNIT/0.05 ML (PER 5 UNITS) 35 UNIT SC (08:58)
[2025-05-03] MEDS: PANTOPRAZOLE 40 MG TABLET PO (09:00)
--- NOTE | 2025-05-03 09:10 | PC.SS ---
Addendum entered by Lucero Pate 05/03/25 10:50: Transportation has been setup for today with [employer] for 4pm today. Ref# [id number]. SS has requested gurney transportation with [facility] and pt requires O2 during transportation. PerMoni [employer] Representatinve, [facility] is not guaranteed and is 3- 4 hour estimated transport time. SS met with pt to provide her with [employer] which contains [employer]'s phone number and dialysis chair transportation information. Pt states her friend, Michoacano will provide transportation and 4pm is too late. Ref# [id number] transport today Ref# [id number] for transport to dialysis on Tuesday05-06-25 Addendum entered by Lucero Pate 05/03/25 10:29: Pt is aware [facility] is not guaranteed and pt still refuses SNF (bedside nurse, Fidelina was present). 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 Original Note: SS and bedside nurseGemma met with pt who is aware yesterday 3 transportation were setup to [facility], dialysis, and Methadone Clinic. Pt states she is now requesting to return home. Pt refuses to go to [facility]. Pt is requesting to return home with Home [facility] Services. Pt states she has had HH in the past but does not recall name of the agency. Pt states she followed up with PCP, Apolinar Tai from [facility] prior to being hospitalized in March. Pt states her friend, [place] will be providing transportation at d/c and to the Meth[facility]one Clinic. Pt states she has O2 concentrator and 2 big O2 tanks at home. Pt states she does not recall the name of the O2 company she utilizes. SS has informed [employer] is the company contracted with her health insurance. has provided pt with [employer] with [employer] phone#. SS has informed pt transportation will be setup for Tuesday to dialysis and she will have to contact them to follow up. During the conversation pt kept refusing SNF for short term rehab. Pt will have dialysis today and then d/c home. has confirmed home address with pt. Transfer nurseNeha is aware pt is requesting HH.
[2025-05-03] MEDS: ACETAMINOPHEN 325 MG TABLET 650 MG PO (09:59)
--- NOTE | 2025-05-03 10:39 | ESPR_ITS ---
Documentation for date of: 05/03/25 Subjective Subjective Interval history: Ms. Diaz is a 63-year-old female with past medical history of COPD on 2 L home oxygen, A-fib, hypertension, CKD stage IIIb, [id number] type 2 diabetes, polysubstance use disorder presents to the ED on 04/18 with increased episodes of shortness of breath. Patient states that ever since being discharged on 04/06 for COPD exacerbation she was doing okay; however, tonight she started developing increased level of shortness of breath. Patient states that she tried using her home inhalers including albuterol but those did not help her symptoms. Patient denies having any sick contacts; however, she is reporting some sore throat which has worsened in the past several days. Patient otherwise denies any fever/chills or any other concerning cardiac symptoms at this time. Nephrology consulted for management of THEO. Home medications included amlodipine, aspirin, BuSpar, clonidine, Valium, Eliquis, Trelegy, Lasix, hydralazine, Basaglar, DuoNeb, lactulose, lisinopril, meclizine, methadone, metolazone, metoprolol, Aldactone 04/24/2025: Patient seen and examined at bedside. Reports intense, constant pain across lower back and at R abdomen. Breathing slightly improved. BUN decreased to 87, Cr improved at 1.8. Good urine output of 4.7L over last 24h. Recommend to continue IV lasix 40 mg BID with albumin 25 g BID for 3 days (04/23- ). 04/25/2025: Patient seen and examined at bedside. Abdominal pain and back pain are mild and better controlled. Much improved shortness of breath. BUN increased 90, and recommend to stop diuretics. Cr improved from 1.8 to 1.7. 04/26/2025: Patient seen and examined at bedside. pain is better controlled, and less shortness of breath. BUN 107, Cr 2.0. Urine output 2.1L. Plan for HD via perm cath on Tuesday04/29/25, CTM BUN, pt may require vas catheter over the weekend if continues to increase. Concern for somnolence on exam later today, query if somnolence is 2/2 high methadone and buspar doses that patient takes chronically. 04/27/2025: Patient seen and examined at bedside. Patient has decreased somnolence compared to exam yesterday. Patient's mother in law seen at bedside visiting. BUN 77 from 107, creatinine 1.9 from 2.0 K 5.4 from 5.3. Continue plan for permacatheter on 04/29/2025. No HD today 04/28/2025 patient currently seen in telemetry. She seems to be more sleepy. Receiving high-dose methadone. Baclofen held. Urine output 1300 mL. Medications/labs reviewed. Patient with recurrent episodes of congestive heart failure exacerbation and decided to proceed with dialysis to prevent recurrent hospitalizations. She agreed. Diuretics were held. Anticoagulation held. She will receive dialysis catheter tomorrow. Of note her white count is elevated at 19.6. No source identified. Hemoglobin 9. Sodium 139, potassium 5, BUN 89, creatinine 1.6, glucose 45, calcium 9.2, magnesium is 2.6, LFTs normal, albumin 3.5. Abdominal x-ray showed constipation. 04/29/2025 patient seen and examined at [facility], pt is awake and interactive. On exam pt has wet lungs, crackles and rales bilaterally,UOP 1200. medications and labs reviewed. anticoagulation held pending HD catheter placement today, pt expresses some anxiety surrounding the placement of catheter. WBC downtrending 15.7 from 19.6. query 2/2 steroid use. Cr 1.6 from 1.6, BUN 81 from 89. Plan for HD today following cath placement. start Chest PT to help with expectoration of sputum. 04/30/2025: Patient seen and examined at bedside, pt is awake and interactive. On exam pt has reduced crackles and rales bilaterally, UOP 2600. BUN 40 from 81, Cr 1.2 from 1.8. cont Chest PT and Up to chair BID with assistance. HD today with fluid removal. 1 unti PRBC ordered to give with HD 05/01/2025: Patient seen and examined at bedside, pt is awake and interactive. she reports that when bathing yesterday, they located a tic on her lower back. no rash present. On exam lung mehta have mild ronchus bilaterally. and trace BLE edema. [id number], BUN 52 from 40, Cr 1.3, K 6.2 from 4.6. plan for HD today, pt will likely need HD 3x/week outpatient setting. 05/02/2025: Patient seen and examined at bedside. Pt is awake and interactive. On auscultation, BL expiratory wheezing improved from prior, and trace ronchi, trace BLE edema, UOP 600. Plan for discharge today with HD scheduled M/W/F. 05/03/2025: Patient seen and examined in HD. Pt awake and interactive. She denies any fever, chills. She endorses sore throat. on auscultation, BL expiratory wheezing is improved and less intermittent coughing. BLE non edematous. UOP 800, initially planned for dispo to snf, however pt will need to discharge home so she can continue picking up methadone. HD today. Exam Vital Signs Temp Pulse Resp BP Pulse Ox O2 Del Method O2 Flow Rate 98.2 F 86 18 149/80 H 96 Room Air 2 05/03/25 09:18 05/03/25 10:30 05/03/25 09:18 05/03/25 10:30 05/03/25 09:18 05/03/25 08:00 05/03/25 09:18 Narrative Exam CONSTITUTIONAL: Patient denies any fever, chills. HEENT: Denies any visual disturbances or hearing problems. CARDIOVASCULAR: Patient denies any chest pain. c/o shortness of breath, swelling in the lower extremities. PULMONARY: intermittent cough, expiratory wheezing, and trace ronchi on exam, improved from prior GASTROINTESTINAL: Patient denies any abdominal pain, constipation, nausea, vomiting, diarrhea. GENITOURINARY: Patient denies any urinary symptoms of burning or frequency or hematuria, denies any form in the urine. SKIN: no bullseye rash. MUSCULOSKELETAL: c/o LBP, joint pains. BLE no edema, good skin wrinkling. NEUROLOGICAL: pt awake and alert during exam, no intermittent sleepiness. PSYCHIATRIC: admits depression or anxiety. LYMPHATICS : No lymphadenopathy Objective Labs 05/02/25 07:10 05/02/25 07:10 Labs: Laboratory Results - last 24 hr 04/29/25 10:36 Crossmatch See Detail ABG Interpretation ABG results: 04/18/25 20:40 VBG pH 7.47 VBG pCO2 36 VBG pO2 72 H VBG Base Excess 2 Quality Measures Quality Measures VTE therapy Assessment & Plan Assessment Current Active Medications: Generic Name Dose Route Start Last Admin Trade Name Freq PRN Reason Stop Dose Admin Acetaminophen 650 mg 04/19/25 07:42 05/03/25 09:59 Acetaminophen 325 Mg Tablet PO 05/18/25 22:12 650 mg Q6H PRN Administration Mild Pain 1-3 or fever >100.1 Albuterol/Ipratropium 3 ml 04/22/25 11:00 05/03/25 06:53 Albuterol/Ipratropium (Duoneb) Rt Blanca 3 Ml Nebu INH 05/22/25 10:59 3 ml Q4HRRT KIP Administration Amlodipine Besylate 10 mg 04/25/25 09:00 04/28/25 08:50 Amlodipine Besylate 5 Mg Tablet PO 05/25/25 08:59 10 mg QDAY KIP Administration Apixaban 5 mg 04/29/25 21:00 05/03/25 08:57 Apixaban 2.5 Mg Tablet PO 05/29/25 20:59 5 mg Q12HR KIP Administration Aspirin 81 mg 04/30/25 09:00 05/03/25 08:57 Aspirin Ec 81 Mg Tabec PO 05/30/25 08:59 81 mg QDAY KIP Administration Dextrose 25 ml 04/18/25 22:19 04/29/25 05:09 Dextrose 50%-Water Inj 50 Ml Syringe IV 05/18/25 22:18 10 ml Q15MIN PRN Administration BG 50-70 responsive npo pt Dextrose 50 ml 04/18/25 22:19 04/28/25 06:52 Dextrose 50%-Water Inj 50 Ml Syringe IV 05/18/25 22:18 50 ml Q15MIN PRN Administration BG <50 OR BG <70 & pt unresponsive Diltiazem HCl 180 mg 04/20/25 09:00 05/03/25 08:57 Diltiazem Cd 180 Mg Capcr PO 05/20/25 08:59 180 mg QDAY KIP Administration Epoetin Narciso 10,000 unit 05/03/25 11:00 Epoetin Narciso-Epbx Inj 10,000 Unit/Ml Vial (Esrd) SC 05/03/25 11:01 X1 ONE Glucagon 1 mg 04/18/25 22:19 Glucagon Inj 1 Mg Vial IM Q15MIN PRN BG <70, and no IV access Guaifenesin 100 mg 04/29/25 08:26 05/03/25 01:40 Guaifenesin Syrup 200 Mg/10 Ml Udc PO 05/29/25 08:25 100 mg QID PRN Administration COUGH Protocol Heparin Sodium (Porcine) 3,800 unit 04/29/25 19:06 05/01/25 11:50 Heparin Sod Inj 1000 Unit/Ml Vial 10 Ml INDWELLCAT 05/13/25 19:05 3,800 unit PRN PRN Administration DIALYSIS Hydralazine HCl 100 mg 04/28/25 14:39 05/03/25 05:09 Hydralazine Hcl 25 Mg Tablet PO 05/19/25 08:44 100 mg TID KIP Administration Albumin Human 25 gm in 100 mls @ 100 mls/min 04/29/25 17:08 Albuminar-25 Ivpb IV PRN PRN DIALYSIS Insulin Glargine 35 unit 05/03/25 09:00 05/03/25 08:58 Insulin Glargine (Lantus) 5 Unit/0.05 Ml (Per 5 Units) SC 06/02/25 08:59 35 unit QDAY KIP Administration Insulin Human Lispro 0 unit 04/29/25 17:00 05/03/25 07:58 Insulin Lispro (Admelog) 1 Unit/0.01 Ml Unit SC 05/29/25 16:59 Not Given AC KIP Protocol Lactulose 10 gm 04/23/25 14:15 Lactulose Syrup 20 Gm/30 Ml Udc PO 05/23/25 14:14 X1 PRN CONSTIPATION Protocol Lidocaine 1 patch 04/22/25 16:48 04/24/25 04:34 Lidocaine 5% 1 Patch TOP 05/22/25 16:47 1 patch DAILY PRN Administration LOCALIZED PAIN Lisinopril 40 mg 04/25/25 09:00 04/26/25 08:45 Lisinopril 20 Mg Tablet PO 05/25/25 08:59 40 mg QDAY KIP Administration Nicotine 21 mg 04/21/25 09:00 05/03/25 08:58 Nicotine Patch 21 Mg/24 Hr Patch.Td24 TOP 05/21/25 08:59 21 mg QDAY KIP Administration Nitroglycerin 0.4 mg 04/20/25 08:14 04/27/25 23:33 Nitroglycerin 0.4 Mg Subl Btl #25 SL 0.4 mg Q5MIN PRN Administration CHEST PAIN Ondansetron HCl 4 mg 05/02/25 17:06 05/03/25 02:38 Ondansetron Odt 4 Mg Tabrap PO 06/01/25 17:05 4 mg Q8HR PRN Administration NAUSEA OR VOMITING Protocol Ondansetron HCl 4 mg 05/02/25 17:10 Ondansetron Inj 2 Mg/Ml Inj 2 Ml IVP 05/18/25 22:12 Q6H PRN NAUSEA OR VOMITING Protocol Pantoprazole Sodium 40 mg 04/24/25 09:00 05/03/25 09:00 Pantoprazole 40 Mg Tablet PO 05/24/25 08:59 40 mg QDAY KIP Administration Protocol Patiromer 8.4 gm 05/01/25 10:45 05/02/25 08:45 Patiromer Calcium 8.4 Gm Packet (Non-Form) PO 05/31/25 10:44 8.4 gm QDAY KIP Administration Prednisone 15 mg 05/01/25 09:00 05/03/25 08:57 Prednisone 5 Mg Tablet PO 05/31/25 08:59 15 mg QDAY KIP Administration Fluticasone/Salmeterol 1 puff 04/19/25 07:00 05/03/25 06:53 Fluticasone/Salmeterol 250/50 14 Dose Inh INH 05/19/25 06:59 1 puff BIDRT KIP Administration Sennosides 1 tab 04/18/25 22:13 Senna Tablet PO 05/18/25 22:12 QDAY PRN constipation Protocol Sodium Chloride 3 ml 04/21/25 10:39 04/21/25 11:03 Sodium Chloride Rt Blanca 0.9% 3 Ml Nebu INH 05/21/25 10:38 3 ml PRN PRN Administration SOLN Plan Christina Diaz is a 64-year-old F with a PMH of ESBL UTI, COPD on 2-3 L at home, atrial fibrillation on Eliquis, Takotsubo's cardiomyopathy, substance use disorder (heroin and methamphetamine), IDDM, HTN, viral meningitis, and stroke who was admitted for acute on chronic COPD and CHF exacerbation, HD initiated, tolerating well. HD schedule M/W/. initially planned for dispo to snf, however pt unable to get methadone while at snf, so plan for discharge home with hh. #THEO on CKDIIIb--patient with cardiorenal syndrome and multiple episodes of CHF exacerbation and hospitalizations. #HD M/W/F To prevent recurrent hospitalizations- decided to proceed with twice weekly dialysis. Had a long conversation with the patient who agreed. Perm cath placed 04/29. Hep panel: Hep C reactive PPD: Left forearm on 04/29 1 unit PRBC was given while on the floor not during HD on 05/01 K 6.2 from 4.6, Cr 1.3, BUN 52 from 40 on 05/02 K 5 from 6.2, Cr. 1.2 from 1.3, BUN 38 from 52 on 05/03 appears more euvolemic on exam HD: 04/29, 04/30, 05/01, 05/03 Plan: -HD today -plan for HD M/W/F outpatient #Acute Hypoxic Respiratory Failure secondary to - improved #COPD// CHF Exacerbation - resolved on exam she appears less volume overloaded, more euvolemic, no BLE edema noted on exam, and lungs are clearer to auscultation. - cont chest pt - consider guifenicin or glycopyrrolate for secretions - Up to chair with assistance BID. #Leukocytosis #Atrial Fibrillation, rate controlled #Hypertension --systolic blood pressure 140s #Chronic Hepatitis C #Type 2 Diabetes Mellitus, Insulin-Dependent - A1c, 6.3, 03/2025 - AM Gluc 131 #Substance Use Disorder (Methamphetamine and Heroin) - on methadone. #Anxiety/depression #Tick vs bed bug-- no bulls eye rash on exam -Management per primary tea Plan discussed with nephrology attending Dr. Yao Paniagua MD Internal Medicine PGY-1 Attending Provider Attestation/Addendum Patient seen and examined with resident physician Dr. Paniagua. Note reviewed, agree with findings and recommendations. Patient with cardiorenal syndrome and needing multiple hospitalizations. To avoid Will initiate dialysis. Patient had a right IJ PermCath placed by IR. Patient so far received 3 dialysis sessions. Patient needs outpatient dialysis arrangements. Spoke to primary team--scheduled for MWF schedule Patient currently seen on dialysis. Tolerating dialysis without any problems. Hemodialysis for 3 hours, 2K, ultrafiltration 2-3 L, Epogen 6000, no heparin ordered. Plan of care discussed with the dialysis nurse. Please see dialysis flowsheet for further details.
[2025-05-03] MEDS: EPOETIN ALFA-EPBX INJ 10,000 UNIT/ML VIAL (ESRD) 10000 UNIT SC (11:54)
[2025-05-03] MEDS: HEPARIN SOD INJ 1000 UNIT/ML VIAL 10 ML 3800 UNIT INDWELLCAT (12:38)
[2025-05-03] MEDS: METHADONE HCL 10 MG TABLET 75 MG PO (12:57)
[2025-05-03] MEDS: INSULIN LISPRO (AdmeLOG) 1 UNIT/0.01 ML UNIT SC (12:58)
[2025-05-03] MEDS: PATIROMER CALCIUM 8.4 GM PACKET (NON-FORM) PO (12:58)
--- NOTE | 2025-05-03 14:20 | ESDS_ITS ---
<Statement entered by Ashok Butterfield MD - 05/08/25 14:36> I reviewed above note and agree with findings and plans. I have also personally examined the patient with medicine team and went over assessment and plan with medical team including gallery intern and resident physician. Planned Discharge Date 05/03/25 DS: Providers Provider Date of admission: 04/18/25 22:14 Primary care physician: Apolinar Tai MD Admitting Provider: Lul Guillen MD Attending Provider on Admission: Rhea Ferguson DO Consults: 04/21/25 10:38 Consult to Nephrology Routine Comment: Consulting Provider: Rylee Samayoa 04/21/25 14:00 Referral Physical Therapy Routine Comment: Physician Instructions: 05/02/25 21:03 Referral Wound Care Urgent Comment: SKIN TEAR TO RIGHT BUTTOCK Attending Provider on DC: Cristina Ghotra MD Discharging Provider: Cristina Ghotra MD DS: Diagnosis Problem List Completed Was Problem List Reviewed/Reconciled?: Yes Hospital Course Hospital Course Hospital course: Christina Diaz a 64 year old female with a past medical history of COPD on 2-3 L home oxygen, substance use disorder (methamphetamine and heroin) currently on methadone, Atrial fibrillation on Eliquis, HTN, CKD stage IIIB, and type II diabetes mellitus presented to [facility] ED on 04/18/2025 complaining of shortness of breath and was admitted to the hospital for management of COPD exacerbation. Patient was also found to have THEO on CKD which over the course of hospitalization was not improving but rather worsening. Patient's BUN was also increasing during the course of hospitalization. Nephrology was consulted for patient's worsening kidney function and electrolytes imbalance. Decision was made to place tunneled dialysis catheter on 04/29/25 and patient underwent dialysis for the correction of BUN and electrolytes. For COPD patient was given scheduled breathing treatments and was started on high-dose steroids initially and was transitioned to p.o. prednisone with a taper course on discharge will continue. Patient continued to improve and her oxygen requirements were back to her baseline and patient was saturating we ll on 2 L of oxygen on room air. Workup and imaging was negative for cocci as well as pneumonia therefore no antibiotics were continued during this hospitalization. Initially during hospitalization patient was increasingly somnolent due to methadone and other medications buspirone and diazepam. Now that patient requires hemodialysis patient's methadone was decreased from 100 mg to 75 mg daily and patient's buspiron, diazepam and baclofen were discontinue. Pt continued to exhibit significant improvement in her energy, was able to stay awake most of the day and pain was improving. Pt underwent PT evaluation, pt is recommended to go to rehab. Patient is hemodynamically stable, is approved for outpatient dialysis chair for Tuesday and Tuesday, tolerating oral diet and having regular bowel movements, pain is well-controlled with tapered methadone to 75mg daily (Pt was on 100mg Qday), saturating above 92% on 2L oxygen via nasal cannula. Pt will continue dialysis outpatient and will continue medically administered treatment at methadone clinic. Pt is stable to be discharged to group home facility. 05/03/25: Although Patient was discharged yesterday, overnight patient changed her mind and did not want to go to nursing facility. Therefore, new authorization was placed for home health. Discharge Recommendations -Please follow up with your primary care provider within one week of discharge -If your symptoms worsen,please seek immediate medical attention and return to your nearest emergency room -Please check your blood glucose with glucometer daily atleast 2-3 times a day to keep monitoring your sugars, and use the sliding scale insulin as directed. You are on steroids which can causes hyperglycemia. So it's important to keep an eye on your blood sugars. -If you do not have a primary care provider, you may follow up at the [facility] at [address] [facility] [address], [place] [address], Dialysis Chair time is Tuesday at [facility] [place] [address] phone number: [phone]. First dialysis session is Saturday May 03, 2025 at 6:00am. [facility] [phone] will pick up attendant pt May 03, 2025 at 5:40am from [facility] and return time is 9:50am. Ref# [id number]. Hospitalization Diagnosis #THEO on CKD stage IIIb 2/2 Cardiorenal syndrome #Uremia #CKD Stage IIIb #Acute on chronic hypoxic failure due to #COPD exacerbation #Nicotine Use Disorder/Current Smoker #Leukocytosis 2/2 steroid use - improving #Constipation- resolved #Low lumbar back pain #Abdominal pain #Pancreatitis r/o #History of chest pain secondary to angina, vasospastic, possibly due to Prinzmetal angina - resolved #Chest pain- resolved #Lower extremity edema (resolved) #History of Takatsubo cardiomyopathy [2023] #Right upper extremity edema #Right upper extremity thrombophlebitis r/o #Paroxysmal Atrial fibrillation, rate control #History of A-fib with RVR #Primary Hypertension #Insulin dependent Type 2 diabetes mellitus #Hyperglycemia, likely due to steroid use #Chronic hepatitis C infection #Anxiety #Hx of Polysubstance use disorder (methamephetamine and heroin) Assessment and plan discussed with my attending physician Dr. Scout Ghotra (PGY-2)- Internal medicine resident Time Spent with Patient Time attestation: Total time spent providing and/or coordinating discharge services: Time spent: Greater than 30 minutes Home Health Home Health Referral Orders: 05/03/25 08:34 Home Health Referral Routine Reason For Exam: PT Home-Bound The patient must either because of illness or injury, need the aid of supportive devices such as crutches, canes, wheelchairs, and walkers; the use of special transportation; or the assistance of another person in order to leave their place of residence; OR have a condition such that leaving his or her home is medically contraindicated. In addition, the patient also meets the following criteria: patient is normally unable to leave the home and leaving home requires considerable taxing effort. Addendum to Home Health Certification Practitioner's Certification: I certify that the patient has been under my care in the hospital and the care of attending physician (see below). We had a zipz-by-luwi encounter on (see date below). My clinical findings indicate that the patient is home bound per the above criteria and the Home Health Services noted in these orders are medically necessary. The primary reason for the [id number] encounter is related to the fact that the patient requires home health services. Date Certifying Dsvf-qo-Nykn Physician Encounter: 04/18/25 Physician's Name who will Assume Oversight for Services: Apolinar Tai Physician's Phone No.who will Assume Oversight for Service: TITLE SPECIALIST - Community Resources: No PT to Evaluate: Yes PT to evaluate and provide a treatmnet plan to increase patient's mobility and strength. Wound Care: No IV Therapy: No RN Safety Evaluation: Yes RN to evaluate and create a plan of care that will produce positive outcomes. Palliative Treatment: No Palliative treatment and evaluate the need for hospice. Home Health Aide - Personal Care: No Home Health Aide to assist with any ADL's. Exam Vital Signs Temp Pulse Resp BP Pulse Ox O2 Del Method O2 Flow Rate 98.2 F 92 18 122/64 94 L Room Air 2 05/03/25 12:07 05/03/25 13:04 05/03/25 12:07 05/03/25 13:04 05/03/25 12:07 05/03/25 08:00 05/03/25 12:07 Narrative Exam GENERAL: Awake and alert x3 obese female, cooperative, Not in acute distress NEURO: no focal neurological deficits noted HEENT: Atraumatic, Normocephalic. mucous membranes moist. Eyes open, symmetrical, & clear, HD catheter in IJ noted on right side of chest HEART: Normal Heart Sounds LUNGS: Clear to auscultation with no wheezing or crackles. coarse breath sounds ABDOMEN: soft, non-distended, non-tender, bowel sounds heard, no guarding or rebound tenderness SKIN: no Rash or ecchymoses EXTREMITIES: No edema, no tenderness, able to move all 4 extremities, pedal pulses palpated Discharge Plan Plan Patient Disposition: Home w/HOME HEALTH Patient condition on transfer: Stable Care Plan Goals: -Please follow up with your primary care provider within one week of discharge -If your symptoms worsen,please seek immediate medical attention and return to your nearest emergency room -If you do not have a primary care provider, you may follow up at the [facility] at [address], [place] [address], -Please check your blood glucose with glucometer daily atleast 2-3 times a day to keep monitoring your sugars, and use the sliding scale insulin as directed. You are on steroids which can causes hyperglycemia. So it's important to keep an eye on your blood sugars. Dialysis Chair time is Tuesday at [facility] with Dr. [address] [facility] [address] phone number: [phone]. First dialysis session is Tuesday May 06, 2025 at 6am. [facility] [phone] has been arranged for Tuesday May 06, 2025 for 5:40am pick up attendant at home and return home at 9:50. Ref# [id number] Prescriptions/Referrals Prescriptions/Med Rec: New (DME) FreeStyle Dante 3 Sensor Device See Rx Instructions .Route Qty: 1 3RF Rx Instructions: As directed (DME) FreeStyle Dante 3 [place] Misc See Rx Instructions .Route Qty: 1 0RF Rx Instructions: As directed prednisone 5 mg Tablet See Taper PO QDAY Qty: 41 0RF Taper: Prednisone Taper 15 mg DAILY for 5 Days and 0 Hour 10 mg DAILY for 7 Days and 0 Hour 5 mg DAILY for 7 Days and 0 Hour 2.5 mg DAILY for 7 Days and 0 Hour nicotine 21 mg/24 hr Patch 24 Hour 21 mg top QDAY 10 Days Qty: 10 0RF sennosides [Senna Lax] 8.6 mg Tablet 8.6 mg PO QDAY PRN (Reason: constipation) Qty: 30 0RF insulin lispro [Admelog SoloStar U-100 Insulin] 100 unit/mL insulin pen See Protocol subcut USEASDIRECTD Qty: 15 0RF Protocol: Insulin Corrective High-Dose Regimen Condition: Fingerstick Blood Glucose Dose/Route: Insulin Units Condition: 141-180 mg/dl Dose/Route: 6 units/SQ Condition: 181-220 mg/dl Dose/Route: 8 units/SQ Condition: 221-260 mg/dl Dose/Route: 10 units/SQ Condition: 261-300 mg/dl Dose/Route: 12 units/SQ Condition: 301-350 mg/dl Dose/Route: 14 units/SQ Condition: 351-400 mg/dl Dose/Route: 16 units/SQ Condition: greater than 400 mg/dl Dose/Route: 18 units/SQ diltiazem HCl 180 mg capsule,extended release 24hr 180 mg PO QDAY Qty: 30 3RF methadone 10 mg Tablet 75 mg PO QDAY Qty: 0 0RF Veltassa 8.4 gram powder in packet 8.4 g PO QDAY 14 Days Qty: 4 0RF Continued albuterol sulfate 90 mcg/actuation HFA aerosol inhaler 1 puff inhalation QID PRN (Reason: shortness of breath or wheezing) Qty: 8.5 0RF aspirin 81 mg tablet,delayed release (DR/EC) 81 mg PO QDAY Qty: 30 0RF lactulose 10 gram/15 mL solution 10 g PO QDAY PRN (Reason: constipation) Qty: 3785 0RF lidocaine 5 % adhesive patch,medicated 1 patch topical QDAY Qty: 30 0RF Rx Instructions: leave on most painful area for up to 12 hrs ipratropium-albuterol 0.5 mg-3 mg(2.5 mg base)/3 mL solution for nebulization 3 ml inhalation Q8H PRN (Reason: shortness of breath) Qty: 90 0RF ondansetron 4 mg tablet,disintegrating 4 mg PO Q8H PRN (Reason: nausea and vomiting) Qty: 10 0RF meclizine 50 mg tablet 50 mg PO BID PRN (Reason: dizziness or vertigo) Qty: 10 0RF Proair Digihaler 90 mcg/actuation aero powdr breath act w/sensor 2 inh inhalation Q6H PRN (Reason: shortness of breath or wheezing) Qty: 1 0RF Eliquis 5 mg tablet 5 mg PO Q12H Patient Comments: TAKE ONE TABLET BY MOUTH TWICE DAILY FOR THE HEART insulin glargine [Basaglar KwikPen U-100 Insulin] 100 unit/mL (3 mL) insulin pen 26 unit subcut QAM furosemide [Lasix] 20 mg tablet 20 mg PO QAM 30 Days Qty: 30 0RF hydralazine 100 mg tablet 100 mg PO TID loratadine [Allergy Relief (loratadine)] 10 mg tablet 10 mg PO QDAY Patient Comments: TAKE ONE TABLET BY MOUTH EVERY DAY FOR ALLERGY Trelegy Ellipta 200-62.5-25 mcg blister with device 1 inh inhalation QDAY Qty: 60 1RF Discontinued prednisone 50 mg tablet 50 mg PO QDAY Qty: 7 0RF diazepam [Valium] 5 mg tablet 5 mg PO BID PRN (Reason: muscle spasm) Qty: 14 0RF methadone 10 mg/5 mL Solution 100 mg PO QDAY nitroglycerin 0.4 mg Tablet, Sublingual 0.4 mg BUCCAL Q5MIN PRN (Reason: Chest Pain) buspirone 5 mg tablet 5 mg PO QDAY spironolactone 50 mg tablet 50 mg PO QDAY metoprolol succinate 25 mg tablet extended release 24 hr 25 mg PO QDAY lisinopril 40 mg tablet 40 mg PO QDAY clonidine HCl 0.1 mg tablet 0.1 mg PO BID Patient Comments: TAKE ONE TABLET BY MOUTH TWICE DAILY metolazone 5 mg tablet 5 mg PO QDAY amlodipine 5 mg tablet 10 mg PO QDAY Patient Comments: TAKE TWO TABLETS BY MOUTH EVERY DAY FOR BLOOD PRESSURE lisinopril 10 mg tablet 10 mg PO QDAY 30 Days Qty: 30 0RF Referrals: Apolinar Tai MD [Primary Care Provider] - Patient/Caregiver Discharge Instructions Education Materials: COPD Diabetes, Heart Failure Signs of Flare-Up, Insulin How to Use and Where to Inject, Coping with Heart Failure, Discharge Instructions: COPD, Discharge Instructions Using ... Print Language: Bruneian Stand Alone Forms: Kaylynn Award Info., Patient Portal Info Letter Discharge Order Discharge Orders: Discharge (Routine); Ordered 05/02/25 Ordered By: Cristina Ghotra Quality Discharge Quality Measures VTE therapy
--- NOTE | 2025-05-04 10:05 | PC.CC ---
HH referrals sent. PT did not recall the name of previous HH agency, did not have a preference.
--- NOTE | 2025-05-05 12:59 | PC.CC ---
7 HH agencies declined the pt. No accepting HH agency at this time.
--- NOTE | 2025-05-06 13:38 | PC.CM ---
[facility] accepted patient and start of care date for 05/08.
== END 2025-05-03 15:30 | disposition home health service (06) | DRG 140 ==
LOC: SERX 21:58 → SERHOLD 22:37 → S2NX 23:52 → S3SX 05-02 00:32
PROVIDERS: Internal Medicine; Student in an Organized Health Care Education/Training Program; Admitting Provider Student in an Organized Health Care Education/Training Program; Emergency Provider Emergency Medicine; PCP Family Medicine; Visit Provider Internal Medicine
DX: J44.1 Chronic obstructive pulmonary disease with (acute) exacerbation (principal); I48.0 Paroxysmal atrial fibrillation; E11.22 Type 2 diabetes mellitus with diabetic chronic kidney disease; F17.210 Nicotine dependence, cigarettes, uncomplicated; D50.9 Iron deficiency anemia, unspecified; F41.9 Anxiety disorder, unspecified; F32.A Depression, unspecified; M62.838 Other muscle spasm; Z99.81 Dependence on supplemental oxygen; Z79.01 Long term (current) use of anticoagulants; Z79.4 Long term (current) use of insulin; E11.65 Type 2 diabetes mellitus with hyperglycemia; E83.39 Other disorders of phosphorus metabolism; E87.5 Hyperkalemia; F15.10 Other stimulant abuse, uncomplicated; I13.0 Hypertensive heart and chronic kidney disease with heart failure and stage 1 through stage 4 chronic kidney disease, or unspecified chronic kidney disease; I48.20 Chronic atrial fibrillation, unspecified; I50.9 Heart failure, unspecified; J96.21 Acute and chronic respiratory failure with hypoxia; K59.00 Constipation, unspecified; N14.11 Contrast-induced nephropathy; N17.9 Acute kidney failure, unspecified; N18.32 Chronic kidney disease, stage 3b; T40.3X5A Adverse effect of methadone, initial encounter; T50.8X5A Adverse effect of diagnostic agents, initial encounter; Z79.52 Long term (current) use of systemic steroids; Z79.899 Other long term (current) drug therapy; Z86.73 Personal history of transient ischemic attack (TIA), and cerebral infarction without residual deficits; Z87.440 Personal history of urinary (tract) infections; Z91.199 Patient's noncompliance with other medical treatment and regimen due to unspecified reason; Z99.2 Dependence on renal dialysis; N83.292 Other ovarian cyst, left side; K42.9 Umbilical hernia without obstruction or gangrene; B18.2 Chronic viral hepatitis C; D72.829 Elevated white blood cell count, unspecified; Z88.5 Allergy status to narcotic agent; Z88.8 Allergy status to other drugs, medicaments and biological substances
CPT/HCPCS: 36415; 71045; 74018; 74176; 76856; 76937; 77001; 80053; 80069; 80074; 80307; 81001; 82010; 82436; 82550; 82570; 82803; 83605; 83690; 83735; 83880; 84100; 84133; 84300; 84484; 85025; 85610; 85730; 86580; 86850; 86900; 86901; 86923; 87081; 87502; 87634; 87651; 87811; 93005; 93225; 93306; 93971; 94640; 94644; 94645; 94664; 94667; 96365; 96366; 96375; 97162; 99284; A9270; C1752; C1894; J0456; J0696; J1171; J1642; J1643; J1815; J1938; J2405; J2470; J2765; J2919; J3010; J3475; J3490; J7030; J7050; J7070; J7512; P9016; P9047; Q0162; Q5105; Q5106; J7609

== ENCOUNTER 2025-05-05 07:59 | Emergency (ER) | payer MEDICAID, SELFPAY ==
[2025-05-05 08:10] VITALS: PULSE 82; RESP 20; O2SAT 95; BMI 26.7
[2025-05-05 08:14] VITALS: BP 167/78; PULSE 80; RESP 22; TEMP 36.9; O2SAT 95
--- NOTE | 2025-05-05 08:18 | EKG_ITS ---
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
--- NOTE | 2025-05-05 08:43 | XR_ITS ---
Examination: AP chest single view TECHNIQUE: AP portable sitting chest single view Date and time: May 05, 2025, 0851 hours Comparison April 27, 2025 INDICATION: Onset chest pain and shortness of breath in a FINDINGS: Normal heart size. No pneumonia or pulmonary edema. Right internal jugular dialysis catheter tips SVC IMPRESSION: No active disease
--- NOTE | 2025-05-05 08:45 | PD.EDSOB ---
ED SOB =RME/HPI General Chief Complaint: Shortness of Breath/Dyspnea Stated Complaint: sob Time Seen by Provider: 05/05/25 08:26 Arrival date/time: 05/05/25 07:59 RME / HPI RME / HPI Narrative: 64 year old female with history of atrial fibrillation, COPD on 2L home oxygen, hypertension, diabetes, CKD presents to the ED BIBA from home with complaints of shortness of breath and hyperglycemia. Patient was discharged from this facility yesterday following treatment for a COPD exacerbation and was prescribed a short-acting insulin at discharge. She reports using her long-acting insulin last night. This morning glucose was 534 and did not use the short-acting insulin due to lack of instructions. Also reports baseline nausea but denies any worsening of this symptom. Denies fever, chills, chest pain, abdominal pain, or urinary symptoms. Related Data Home Medications ?Medication ?Instructions ?Recorded ?Confirmed apixaban 5 mg tablet (Eliquis) 5 mg PO Q12H 01/02/25 04/21/25 insulin glargine 100 unit/mL (3 26 unit subcut QAM 01/03/25 04/21/25 mL) subcutaneous pen (Basaglar KwikPen U-100 Insulin) hydralazine 100 mg tablet 100 mg PO TID 04/04/25 04/21/25 loratadine 10 mg tablet (Allergy 10 mg PO QDAY 04/04/25 04/21/25 Relief (loratadine)) Previous Rx's ?Medication ?Instructions ?Recorded albuterol sulfate 90 mcg/actuation 1 puff inhalation QID PRN 08/06/24 aerosol inhaler shortness of breath or wheezing #8.5 grams aspirin 81 mg tablet,delayed 81 mg PO QDAY #30 tabs 08/06/24 release lactulose 10 gram/15 mL oral 10 g (15 mL) PO QDAY PRN 08/06/24 solution constipation #3,785 mL lidocaine 5 % topical patch 1 patch topical QDAY #30 ea 08/06/24 meclizine 50 mg tablet 50 mg PO BID PRN dizziness or 10/27/24 vertigo #10 tabs ondansetron 4 mg disintegrating 4 mg PO Q8H PRN nausea and 10/27/24 tablet vomiting #10 tabs albuterol sulfate 90 mcg/actuation 2 inh inhalation Q6H PRN shortness 11/01/24 breath activated powder of breath or wheezing #1 ea inhaler,sensor (Proair Digihaler) furosemide 20 mg tablet (Lasix) 20 mg PO QAM 30 days #30 tabs 01/08/25 fluticasone fur. 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 #1 ea 04/25/25 (FreeStyle Dante 3 [place]) nicotine 21 mg/24 hr daily 21 mg top QDAY 10 days #10 ea 05/02/25 transdermal patch prednisone 5 mg tablet See Taper PO QDAY #41 tabs 05/02/25 sennosides 8.6 mg tablet (Senna 8.6 mg PO QDAY PRN constipation 05/02/25 Lax) #30 tabs diltiazem HCl 180 mg 180 mg PO QDAY #30 caps 05/03/25 capsule,extended release 24 hr insulin lispro 100 unit/mL See Protocol subcut USEASDIRECTD 05/03/25 subcutaneous pen (Admelog SoloStar #15 mL U-100 Insulin lispro) methadone 10 mg tablet 75 mg (7.5 x 10 mg) PO QDAY #0 tabs 05/03/25 patiromer calcium sorbitex 8.4 8.4 g PO QDAY 2 weeks #4 ea 05/03/25 gram oral powder packet (Veltassa) Allergies Allergy/AdvReac Type Severity Reaction Status Date / Time codeine Allergy Severe RASH Verified 04/18/25 20:36 diphenhydramine HCl Allergy Severe Hives Verified 04/18/25 20:36 egg Allergy Severe Rash Verified 04/18/25 20:36 Penicillins Allergy Severe SWELLING, Verified 04/18/25 20:36 RESP DISTRESS pentazocine (From Evaristo) Allergy Severe Hives Verified 04/18/25 20:36 Review of Systems Review of Systems Systems Reviewed: All systems reviewed, normal except as documented Past Medical History Past Medical History NEUROLOGIC: Positive Neurological Disorders, Cerebrovascular Accident and Meningitis CARDIAC: Positive Cardiac Disorders, Myocardial Infarction, Cardiac Arrhythmia, Atrial Fibrillation, Angina, Coronary Artery Disease, Atherosclerotic Heart Disease, Hypercholesterolemia, Congestive Heart Failure, Cardiomyopathy, Edema and Hypertension RESPIRATORY: Positive Chronic Obstructive Pulmonary Disease (COPD), Asthma, Bronchitis, Emphysema, Pneumonia and Smoking (Smoked from age [age] (1 pack/day), currently does not smoke) GENITOURINARY: Positive Renal Disease MUSCULOSKELETAL: Positive Musculoskeletal Disorders, Arthritis and Osteoporosis ENT: Positive Cataracts and Blind ENDOCRINE: Positive Endocrine Disorders and Diabetes Mellitus Type 2 HEMATOLOGIC: Positive Anemia PSYCHO/SOCIAL: Positive Recreational Drug Use, Depression and Anxiety OTHER HISTORY: Positive Hospitalization, Shingles, Falls and Blood Transfusions Family History FAMILY HISTORY: Positive Family Cardiac Disorders Surgical History SURGICAL: Positive Thyroidectomy, Eye Surgery, Tonsillectomy, Abdominal Surgery and Bowel Surgery Social History SMOKING STATUS: Former smoker SECOND HAND EXPOSURE: No SUBSTANCE USE: former substance user, heroin and methamphetamine (Former drug use, states she quit 20 years ago; tested positive for methamphetamine 03/31/2023.) 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 HEENT: Normocephalic, atraumatic; EOMI NECK: Supple CHEST: Dialysis port-a-cath in the right upper chest LUNGS: Generally clear with mild scant wheezing; no rales, no rhonchi, no respiratory distress HEART: Regular rate, regular rhythm ABDOMEN: non distended; normal BS; soft, no tenderness EXTREMITIES: atraumatic; 1-2+ edema blle. NEUROLOGIC: awake; alert and oriented x4 PSYCHIATRIC: anxious, tearful SKIN: warm, dry, intact Course Course Course Narrative: chest xray ordered to help determine etiology of shortness of breath. 1045: On reassessment, the patient feels much better. I reviewed labs and imaging which remain unchanged from previous labs. Blood glucose in the 200s, no indication for further work up at this time. Patient is stable for discharge. She is requesting instructions on how to use her short-acting - provided with the sliding scale previously recommended - highlighted this on her dc papers. Was encouraged to follow up with PCP closely. To return if worse. Quality Measures none Orders Category Date Time Status EKG (ED ONLY) *Do not use* NOW Care 05/05/25 08:18 Completed In and Out Catheter X1 Care 05/05/25 10:09 Completed EKG (ED Only) Stat Exams 05/05/25 08:18 Draft XR chest 1V portable Stat Exams 05/05/25 08:43 Completed B-Type Natriuretic Peptide Stat Lab 05/05/25 09:22 Completed Beta Hydroxybutyrate Stat Lab 05/05/25 09:22 Completed CBC Stat Lab 05/05/25 09:22 Completed Comprehensive Metabolic Panel Stat Lab 05/05/25 09:22 Completed Drug Screen,Urine Stat Lab 05/05/25 10:09 Completed Magnesium Stat Lab 05/05/25 09:22 Completed Partial Thromboplastin Time Stat Lab 05/05/25 08:43 Ordered Prothrombin Time with INR Stat Lab 05/05/25 08:43 Ordered Urinalysis Stat Lab 05/05/25 10:09 Completed Albuterol/Ipratr Rt Blanca [Duoneb Rt Blanca] Med 05/05/25 08:43 Discontinued 3 ml INH X1 ONE Vital Signs Vital signs: Vital Signs Temperature 98.4 F 05/05/25 08:14 Pulse Rate 80 05/05/25 08:14 Respiratory Rate 22 H 05/05/25 08:14 Blood Pressure 167/78 H 05/05/25 08:14 Pulse Oximetry (%) 95 05/05/25 08:14 Oxygen Delivery Method Room Air 05/05/25 08:14 Pulse ox is 95% on room air which is adequate. Shortness of Breath / Dyspnea MDM Narrative MDM Narrative:: Anju Fuller am scribing for and in the presence of Dr. Carver. Patient data External records reviewed:: [facility] previous records (I reviewed admission from 04/18/2025 through 05/04/2025 for COPD management ) and EMS form Clinical information provided by:: patient and EMS Social determinants that could affect healthcare access:: substance use (hx of polysubstance abuse ) Patient has the following chronic illnesses:: atrial fibrillation, COPD on 2L home oxygen, hypertension, diabetes, CKD How is presenting disease/condition affected by chronic disease/condition?: exacerbated by Evaluation data The following diagnostics were reviewed and interpreted by me:: lab results, radiology exam(s) and EKG tracing(s) (05/05/2025 @ 09:03 AM. Sinus rhythm, rate 69, no STEMI. ) Lab and/or radiology exams considered but not ordered:: None Interpretation Summary: Ordering Physician: Niki Carver MD Date of Service: 05/05/25 Procedure(s): XR chest 1V portable Accession Number(s): [id number] cc: Apolinar Tai MD; Acosta Kumari MD; Niki Carver MD~ Examination: AP chest single view TECHNIQUE: AP portable sitting chest single view Date and time: May 05, 2025, 0851 hours Comparison April 27, 2025 INDICATION: Onset chest pain and shortness of breath in a FINDINGS: Normal heart size. No pneumonia or pulmonary edema. Right internal jugular dialysis catheter tips SVC IMPRESSION: No active disease Dictated By: Acosta Kumari MD Signed By: <Electronically signed by Acosta Kumari MD in OV> 05/05/25 0921 Medications / Prescriptions Medications or Prescriptions considered but not ordered:: None Medication administrations:: Medication Administration History Discontinued Medications Albuterol/Ipratropium (Albuterol/Ipratropium (Duoneb) Rt Blanca 3 Ml Nebu) 3 ml INH X1 ONE Stop: 05/05/25 08:44 Last Admin: 05/05/25 08:55 Dose: 3 ml Documented By: RIAN See above Consultations Consultation(s) initiated? (list below): No Diagnosis Shortness of Breath Differential Diagnosis: acute exacerbation of chronic obstructive airways disease, congestive heart failure, community acquired pneumonia and asthma with exacerbation Most likely diagnosis given after review of the tests above:: Hyperglycemia Dyspnea Admission Indicated Admission indicated?: not indicated Admission Request Was there a request for admission?: No Disposition Plan Disposition Plan: Discharge Discharge Attestation Discharge Attestation: The patient and all family members were given an opportunity to ask questions and understood the discharge instructions. Discharge instructions specifically effects, indications for sooner follow up or return to the emergency department, and the expected course of current diagnosis. Patient condition: Stable Discharge Plan Plan Patient Disposition: HOME (Self Care) Patient condition on transfer: Stable Prescriptions/Referrals Prescriptions/Med Rec: No Action albuterol sulfate 90 mcg/actuation HFA aerosol inhaler 1 puff inhalation QID PRN (Reason: shortness of breath or wheezing) Qty: 8.5 0RF aspirin 81 mg tablet,delayed release (DR/EC) 81 mg PO QDAY Qty: 30 0RF lactulose 10 gram/15 mL solution 10 g PO QDAY PRN (Reason: constipation) Qty: 3785 0RF lidocaine 5 % adhesive patch,medicated 1 patch topical QDAY Qty: 30 0RF Rx Instructions: leave on most painful area for up to 12 hrs ipratropium-albuterol 0.5 mg-3 mg(2.5 mg base)/3 mL solution for nebulization 3 ml inhalation Q8H PRN (Reason: shortness of breath) Qty: 90 0RF ondansetron 4 mg tablet,disintegrating 4 mg PO Q8H PRN (Reason: nausea and vomiting) Qty: 10 0RF meclizine 50 mg tablet 50 mg PO BID PRN (Reason: dizziness or vertigo) Qty: 10 0RF Proair Digihaler 90 mcg/actuation aero powdr breath act w/sensor 2 inh inhalation Q6H PRN (Reason: shortness of breath or wheezing) Qty: 1 0RF Eliquis 5 mg tablet 5 mg PO Q12H Patient Comments: TAKE ONE TABLET BY MOUTH TWICE DAILY FOR THE HEART insulin glargine [Basaglar KwikPen U-100 Insulin] 100 unit/mL (3 mL) insulin pen 26 unit subcut QAM furosemide [Lasix] 20 mg tablet 20 mg PO QAM 30 Days Qty: 30 0RF hydralazine 100 mg tablet 100 mg PO TID loratadine [Allergy Relief (loratadine)] 10 mg tablet 10 mg PO QDAY Patient Comments: TAKE ONE TABLET BY MOUTH EVERY DAY FOR ALLERGY Trelegy Ellipta 200-62.5-25 mcg blister with device 1 inh inhalation QDAY Qty: 60 1RF (DME) FreeStyle Dante 3 Sensor Device See Rx Instructions .Route Qty: 1 3RF Rx Instructions: As directed (DME) FreeStyle Dante 3 [place] Misc See Rx Instructions .Route Qty: 1 0RF Rx Instructions: As directed prednisone 5 mg Tablet See Taper PO QDAY Qty: 41 0RF Taper: Prednisone Taper 15 mg DAILY for 5 Days and 0 Hour 10 mg DAILY for 7 Days and 0 Hour 5 mg DAILY for 7 Days and 0 Hour 2.5 mg DAILY for 7 Days and 0 Hour nicotine 21 mg/24 hr Patch 24 Hour 21 mg top QDAY 10 Days Qty: 10 0RF sennosides [Senna Lax] 8.6 mg Tablet 8.6 mg PO QDAY PRN (Reason: constipation) Qty: 30 0RF insulin lispro [Admelog SoloStar U-100 Insulin] 100 unit/mL insulin pen See Protocol subcut USEASDIRECTD Qty: 15 0RF Protocol: Insulin Corrective High-Dose Regimen Condition: Fingerstick Blood Glucose Dose/Route: Insulin Units Condition: 141-180 mg/dl Dose/Route: 6 units/SQ Condition: 181-220 mg/dl Dose/Route: 8 units/SQ Condition: 221-260 mg/dl Dose/Route: 10 units/SQ Condition: 261-300 mg/dl Dose/Route: 12 units/SQ Condition: 301-350 mg/dl Dose/Route: 14 units/SQ Condition: 351-400 mg/dl Dose/Route: 16 units/SQ Condition: greater than 400 mg/dl Dose/Route: 18 units/SQ diltiazem HCl 180 mg capsule,extended release 24hr 180 mg PO QDAY Qty: 30 3RF methadone 10 mg Tablet 75 mg PO QDAY Qty: 0 0RF Veltassa 8.4 gram powder in packet 8.4 g PO QDAY 14 Days Qty: 4 0RF Referrals: Apolinar Tai MD [Primary Care Provider] - In 1 week Problem List Clinical Impression: Hyperglycemia, Dyspnea Patient/Caregiver Discharge Instructions Diet Instructions: Avoid fast foods and highly processed foods. Try to eat foods that are less processed, fresh foods - vegetables, fruits such as apples, grains such as oatmeal, brown rice, etc. Education Materials: How to Check Your Blood Sugar, Shortness of Breath Coping, ED Diabetes with High Blood Sugar Additional Instructions: Instructions for Short Acting Insulin: For blood sugar 141 - 180: Take 6 units For blood sugar 181 - 200: Take 8 units For blood sugar 221 - 260: Take 10 units For blood sugar 261 - 300: Take 12 units For blood sugar 301 - 350: Take 14 units For blood sugar 351 - 400: Take 16 units For blood sugar over 400: Take 18 units Print Language: Cameroonian Stand Alone Forms: Kaylynn Award Info., Patient Portal Info Letter
[2025-05-05] MEDS: ALBUTEROL/IPRATROPIUM (Duoneb) RT SOL 3 ML NEBU INH (08:55)
[2025-05-05 08:56] VITALS: PULSE 74; RESP 20; O2SAT 99
[2025-05-05 09:45] LABS: Beta Hydroxybutyrate 0.0 mmol/L (<0.6)
[2025-05-05 09:48] LABS: Basophils # (Auto) 0.0 Thou/mm3 (0.0-0.2); Basophils % (Auto) 0 % (0-2.5); Eosinophils # (Auto) 0.0 Thou/mm3 (0.0-0.5); Eosinophils % (Auto) 0 % (0-10); Hematocrit 31.9 % (36.0-46.0); Hemoglobin 10.2 g/dL (12.0-16.0); Immature Granulocytes Auto 0.15 Thou/mm3 (0.00-0.00); Lymphocytes # (Auto) 0.4 Thou/mm3 (1.0-4.8); Lymphocytes % (Auto) 3 % (10-50); Mean Corpuscular HGB Conc 32.0 g/dl (31.0-37.0); Mean Corpuscular Hemoglobin 26.6 pg (25.0-35.0); Mean Corpuscular Volume 83 fL (80-100); Monocytes # (Auto) 0.2 Thou/mm3 (0.0-0.8); Monocytes % (Auto) 2 % (0-12); Neutrophils # (Auto) 10.1 Thou/mm3 (1.8-7.7); Neutrophils % (Auto) 93 % (37-80); Nucleated Red Blood Cell # 0.00 Thou/mm3 (0.00-0.00); Nucleated Red Blood Cell % 0 /100 WBC (0); Platelet Count 130 Thou/mm3 (140-440); RDW Standard Deviation 45.9 fL (36.4-46.3); Red Blood Count 3.84 Miln/mm3 (4.00-5.20); White Blood Count 10.8 Thou/mm3 (3.6-11.0)
--- NOTE | 2025-05-05 09:53 | PC.NURSE ---
PER DR. EDMOND, PT OK TO EAT AT THIS TIME.
[2025-05-05 09:59] LABS: B-Type Natriuretic Peptide 71 pg/mL (0-100)
[2025-05-05 10:00] LABS: Alanine Aminotransferase 42 U/L (10-49); Albumin, Serum 3.5 gm/dL (3.4-4.8); Albumin/Globulin Ratio 1.8 (1.2-2.2); Alkaline Phosphatase 66 U/L (46-116); Anion Gap 8 (7-16); Aspartate Amino Transferase 22 U/L (0-34); BUN/Creatinine Ratio 28 Ratio (12-20); Bilirubin,Total 0.4 mg/dL (0.3-1.2); Blood Urea Nitrogen 33 mg/dL (9-23); Calcium 8.7 mg/dL (8.3-10.6); Calcium (Corrected) 9.1 mg/dL (8.5-10.1); Carbon Dioxide 25.1 mMol/L (20.0-31.0); Chloride 107 mMol/L (98-107); Creatinine (Component) 1.2 mg/dL (0.6-1.3); Estimated Creatinine Clearance 48.0 mL/min (>60); Globulin 2.0 gm/dL (2.3-3.5); Glucose 230 mg/dL (74-106); Magnesium 1.8 mg/dL (1.6-2.6); Osmolality,Calculated 293 (275-295); Potassium 4.9 mMol/L (3.4-5.1); Sodium 140 mMol/L (136-145); Total Protein 5.5 gm/dL (5.7-8.2); eGFR 51 See Note
--- NOTE | 2025-05-05 10:00 | PC.NURSE ---
PT GIVEN TURKEY SANDWICH & CUP OF WATER AT THIS TIME.
[2025-05-05 10:27] LABS: Collection Type, Urine Clean Catch
[2025-05-05 10:37] LABS: Bilirubin,Urine Negative (Negative); Blood,Urine 2+ (Negative); Budding Yeast,Urine Present; Clarity,Urine Clear (Clear/Hazy); Color,Urine Lt-Yellow (Lt Yel-Yel); Glucose, Urine 1+ (Negative); Ketones,Urine Negative (Negative); Leukocyte Esterase,Urine Negative (Negative); Nitrite,Urine Negative (Negative); PH,Urine 5.0 (5.0-7.0); Protein,Urine Trace (Neg - Trace); RBC,Urine 146 /hpf (0-3); Specific Gravity,Urine 1.012 (1.001-1.035); Squamous Epithelial Cell,Urine 1 /hpf (0-5); Urobilinogen,Urine Negative mg/dL (0.0-1.0); WBC,Urine 5 /hpf (0-5)
[2025-05-05 10:51] LABS: Amphetamine/Methamp Scrn,U Negative (Negative); Barbiturate Screen,Urine Negative (Negative); Benzodiazepines Screen,Urine Positive (Negative); Benzoylecgonine Screen, Ur Negative (Negative); Fentanyl Screen,Urine Negative (Negative); Opiate Screen,Urine Negative (Negative); THC Screen,Urine Negative (Negative)
[2025-05-05 10:54] VITALS: BP 167/81; PULSE 78; RESP 19; TEMP 36.7; O2SAT 95
--- NOTE | 2025-05-06 11:50 | PC.CC ---
[address], case manangement, Danisha, called to ask if pt was aware that HH wad denied. After looking in the notes, it is not noted that pt was aware of HH declining. Danisha stated she would let the pt know.
== END 2025-05-05 11:28 | disposition home or self-care (01) ==
PROVIDERS: Emergency Provider Family Medicine; PCP Family Medicine
DX: E11.65 Type 2 diabetes mellitus with hyperglycemia (principal); R06.02 Shortness of breath; I48.91 Unspecified atrial fibrillation; J44.9 Chronic obstructive pulmonary disease, unspecified; I12.9 Hypertensive chronic kidney disease with stage 1 through stage 4 chronic kidney disease, or unspecified chronic kidney disease; E11.22 Type 2 diabetes mellitus with diabetic chronic kidney disease; N18.9 Chronic kidney disease, unspecified; Z99.81 Dependence on supplemental oxygen; Z87.891 Personal history of nicotine dependence; Z79.4 Long term (current) use of insulin; Z79.01 Long term (current) use of anticoagulants; Z79.82 Long term (current) use of aspirin; Z79.52 Long term (current) use of systemic steroids; Z88.8 Allergy status to other drugs, medicaments and biological substances
CPT/HCPCS: 36415; 71045; 80053; 80307; 81001; 82010; 83735; 83880; 85025; 85610; 85730; 93005; 94640; 99284; A9270

== ENCOUNTER 2025-05-07 21:23 | Emergency (ER) | payer MEDICAID, SELFPAY ==
[2025-05-07 21:24] VITALS: BP 154/75; PULSE 85; RESP 20; TEMP 37.1; O2SAT 99
[2025-05-07 21:30] VITALS: PULSE 85; RESP 26; O2SAT 99
[2025-05-07 21:37] VITALS: BMI 26.9
--- NOTE | 2025-05-07 21:58 | PD.EDSOB ---
ED SOB =RME/HPI General Chief Complaint: Shortness of Breath/Dyspnea Stated Complaint: SOB Time Seen by Provider: 05/07/25 21:26 Arrival date/time: 05/07/25 21:23 RME / HPI RME / HPI Narrative: Dr. Riddle?s Main ED Evaluation: 64yo female with long-standing history of COPD, substance abuse on methadone, chronic renal insufficiency recently beginning HD within the last week now presenting with ongoing generalized weakness and increasing pain to the RLE in the setting of pre-existing neuropathy. Patient reports multiple falls since she was discharged, but denies any head strikes or loss of consciousness. No fever or chills, but she does have a known ongoing cough, congestion, and difficulty expectorating. Related Data Home Medications ?Medication ?Instructions ?Recorded ?Confirmed apixaban 5 mg tablet (Eliquis) 5 mg PO Q12H 01/02/25 04/21/25 insulin glargine 100 unit/mL (3 26 unit subcut QAM 01/03/25 04/21/25 mL) subcutaneous pen (Basaglar KwikPen U-100 Insulin) hydralazine 100 mg tablet 100 mg PO TID 04/04/25 04/21/25 loratadine 10 mg tablet (Allergy 10 mg PO QDAY 04/04/25 04/21/25 Relief (loratadine)) Previous Rx's ?Medication ?Instructions ?Recorded albuterol sulfate 90 mcg/actuation 1 puff inhalation QID PRN 08/06/24 aerosol inhaler shortness of breath or wheezing #8.5 grams aspirin 81 mg tablet,delayed 81 mg PO QDAY #30 tabs 08/06/24 release lactulose 10 gram/15 mL oral 10 g (15 mL) PO QDAY PRN 08/06/24 solution constipation #3,785 mL lidocaine 5 % topical patch 1 patch topical QDAY #30 ea 08/06/24 meclizine 50 mg tablet 50 mg PO BID PRN dizziness or 10/27/24 vertigo #10 tabs ondansetron 4 mg disintegrating 4 mg PO Q8H PRN nausea and 10/27/24 tablet vomiting #10 tabs albuterol sulfate 90 mcg/actuation 2 inh inhalation Q6H PRN shortness 11/01/24 breath activated powder of breath or wheezing #1 ea inhaler,sensor (Proair Digihaler) furosemide 20 mg tablet (Lasix) 20 mg PO QAM 30 days #30 tabs 01/08/25 fluticasone fur. 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 #1 ea 04/25/25 (FreeStyle Dante 3 Hewitt) nicotine 21 mg/24 hr daily 21 mg top QDAY 10 days #10 ea 05/02/25 transdermal patch prednisone 5 mg tablet See Taper PO QDAY #41 tabs 05/02/25 sennosides 8.6 mg tablet (Senna 8.6 mg PO QDAY PRN constipation 05/02/25 Lax) #30 tabs diltiazem HCl 180 mg 180 mg PO QDAY #30 caps 05/03/25 capsule,extended release 24 hr insulin lispro 100 unit/mL See Protocol subcut USEASDIRECTD 05/03/25 subcutaneous pen (Admelog SoloStar #15 mL U-100 Insulin lispro) methadone 10 mg tablet 75 mg (7.5 x 10 mg) PO QDAY #0 tabs 05/03/25 patiromer calcium sorbitex 8.4 8.4 g PO QDAY 2 weeks #4 ea 05/03/25 gram oral powder packet (Veltassa) Allergies Allergy/AdvReac Type Severity Reaction Status Date / Time codeine Allergy Severe RASH Verified 04/18/25 20:36 diphenhydramine HCl Allergy Severe Hives Verified 04/18/25 20:36 egg Allergy Severe Rash Verified 04/18/25 20:36 Penicillins Allergy Severe SWELLING, Verified 04/18/25 20:36 RESP DISTRESS pentazocine (From Evaristo) Allergy Severe Hives Verified 04/18/25 20:36 Review of Systems Review of Systems Systems Reviewed: All systems reviewed, normal except as documented Past Medical History Past Medical History NEUROLOGIC: Positive Neurological Disorders, Cerebrovascular Accident and Meningitis; Negative Transient Ischemic Attacks (TIA), Alzheimer's Disease, Parkinson's Disease, Brain Tumor, Seizures, Multiple Sclerosis, Cerebral Palsy, Amyotrophic Lateral Sclerosis (ALS/Regina Gehrig's), Spina Bifida, Paralysis, Peripheral Neuropathy, Farrar's Palsy, Subdural Hematoma, Migraine, Head Trauma, Spinal Cord Injury or Traumatic Brain Injury CARDIAC: Positive Cardiac Disorders, Myocardial Infarction, Cardiac Arrhythmia, Atrial Fibrillation, Angina, Coronary Artery Disease, Atherosclerotic Heart Disease, Hypercholesterolemia, Congestive Heart Failure, Cardiomyopathy, Edema and Hypertension; Negative Varicose Veins RESPIRATORY: Positive Chronic Obstructive Pulmonary Disease (COPD), Asthma, Bronchitis, Emphysema, Pneumonia and Smoking (Smoked from age [age] (1 pack/day), currently does not smoke); Negative Pulmonary Fibrosis, Tuberculosis, Pulmonary Embolism, Pulmonary Edema or Sleep Apnea GASTROINTESTINAL: Negative Gastrointestinal Disorders, Hepatitis, Cirrhosis, Pancreatitis, Celiac Disease, Gall Bladder Disease, Gastrointestinal Bleed, Esophageal Varices, Denise's Esophagus, Colitis, Ulcerative Colitis, Diverticulitis, Diverticulosis, Ulcer, Irritable Bowel, Crohn's Disease, Obstructive Bowel, Hiatal Hernia, Hemorrhoids, Gastroesophageal Reflux Disease or Obesity GENITOURINARY: Positive Renal Disease and Dialysis (MON, WED, FRI); Negative Genitourinary Disorders, Kidney Stones, Polycystic Kidney Disease, Neurogenic Bladder, Inguinal Hernia or Benign Prostatic Hyperplasia REPRODUCTIVE: Negative Pelvic Inflammatory Disease MUSCULOSKELETAL: Positive Musculoskeletal Disorders, Arthritis and Osteoporosis; Negative Muscular Dystrophy, Myasthenia Gravis, Marfan's Syndrome, Rheumatoid Arthritis, Degenerative Disk Disease, Gout, Scoliosis, Carpal Tunnel Syndrome, Fibromyalgia, Fractures, Degenerative Joint Disease, Osteomyelitis or Poliovirus ENT: Positive Cataracts and Blind; Negative Glaucoma, Retinal Detachment, Macular Degeneration, Ear Infection, Deafness, Head Trauma or Eye Prosthesis ENDOCRINE: Positive Endocrine Disorders and Diabetes Mellitus Type 2; Negative Diabetes Mellitus Type 1, Hypoglycemia, Alderpoint's Syndrome, Arpit's Disease, Hyperthyroidism, Hypothyroidism, Parathyroid Disease, Pituitary Disease, Systemic Lupus Erythematosus, Syndrome of Inappropriate Antidiuretic Hormone (SIADH), Adrenal Disease or Graves' Disease HEMATOLOGIC: Positive Anemia; Negative Blood Disorders, Leukemia, Hemophilia, Thalassemia, Sickle Cell Disease or Clotting Problems PSYCHO/SOCIAL: Positive Recreational Drug Use, Depression and Anxiety; Negative Psychiatric Problems, Schizophrenia, Behavior Problems, Self-Mutilation, Attention Deficit Disorder, Attention Deficit Hyperactivity Disorder, Depression, Post Traumatic Stress Disorder or Eating Disorder OTHER HISTORY: Positive Hospitalization, Shingles, Falls and Blood Transfusions; Negative Autoimmune Disease, Down Syndrome, Autism, Developmental Delay, Anesthesia Reactions, Organ Transplant, Chemotherapy, Radiation Therapy, MRSA, Human Immunodeficiency Virus (HIV), Chicken Pox, Measles, Mumps, Rubella (Romansh Measles), Pertussis, Clostridium Difficile or Cancer Family History FAMILY HISTORY: Positive Family Cardiac Disorders; Negative Family Psychiatric Problems, Family Respiratory Disorders, Family Gastrointestinal Problems, Family Cancer, Family Surgery or Family Anesthesia Reaction Surgical History SURGICAL: Positive Thyroidectomy, Eye Surgery, Tonsillectomy, Abdominal Surgery and Bowel Surgery; Negative Cardiac Surgery, Open Heart Surgery, Coronary Artery Bypass Graft, Valve Replacement, Vascular Surgery, Coronary Stent, Cardiac Catheterization, Pacemaker, Angiogram, Auto Implanted Cardiovert Defib, Carotid Endarterectomy, Endocrine Surgery, Ear Surgery, Tympanostomy Tube, Nose Surgery, Oral Surgery, Adenoidectomy, Cochlear Implant, Corneal Transplant, Throat Surgery, Tracheostomy, Gastric Bypass Surgery, Gastrostomy, Nephrectomy, Joint Replacement, Amputation, Open Reduction Internal Fixation, Arthroscopy, Neurologic Surgery, Brain Shunt, Mastectomy, Lumpectomy, Hysterectomy, Tubal Ligation, Section or Organ Transplant Social History SMOKING STATUS: Former smoker SECOND HAND EXPOSURE: No SUBSTANCE USE: former substance user, heroin and methamphetamine (Former drug use, states she quit 20 years ago; tested positive for methamphetamine 03/31/2023.) 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, 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 ED Exam Narrative Physical exam: GENERAL APPEARANCE: alert and oriented x 4, chronically-ill appearing, mildly tachypneic at rest, no acute distress HEENT: Normocephalic, atraumatic; pupils equal, round, reactive to light; EOMI; mucous membranes pink, moist; oropharynx clear NECK: Supple, no JVD LUNGS: Rales at the right base, no wheezing CHEST: Evidence of recently placed dialysis port with ecchymosis to the lateral chest wall noted, no crepitus or step-off HEART: Regular rate, regular rhythm; normal S1, S2; no murmurs ABDOMEN: non distended; normal BS; soft, no tenderness, no guarding, no rebound; no masses, no organomegaly, no hernia BACK: no CVA tenderness EXTREMITIES: atraumatic; no edema; reports marked pain to the quadriceps on flexion of the right hip NEUROLOGIC: awake; alert and oriented x4; cranial nerves II-XII grossly intact; no focal sensory or motor deficits PSYCHIATRIC: appropriate mood and affect SKIN: warm, dry, normal color; no rashes Course Course Course Narrative: CXR is ordered for determining the etiology of shortness of breath. Quality Measures none Orders Category Date Time Status Diamond Grader STAT Care 05/07/25 22:13 Active Continuous Pulse Oximetry ONCE Care 05/07/25 22:13 Active EKG (ED ONLY) *Do not use* NOW Care 05/07/25 22:13 Completed In and Out Catheter X1 Care 05/08/25 02:04 Completed Insert IV STAT Care 05/07/25 22:13 Active EKG (ED Only) Stat Exams 05/07/25 22:13 Ordered XR chest 1V portable Stat Exams 05/07/25 22:13 Completed XR hip RT w pelvis 2-3V Stat Exams 05/07/25 22:15 Completed B-Type Natriuretic Peptide Stat Lab 05/07/25 22:10 Completed CBC Stat Lab 05/07/25 22:10 Completed Comprehensive Metabolic Panel Stat Lab 05/07/25 22:10 Completed Drug Screen,Urine Stat Lab 05/08/25 02:13 Completed Magnesium Stat Lab 05/07/25 22:10 Completed Troponin I Stat Lab 05/07/25 22:10 Completed Urinalysis Stat Lab 05/08/25 02:13 Completed Morphine Inj Med 05/07/25 22:13 Discontinued 2 mg IVP X1 ONE Ondansetron Inj [Zofran Inj] Med 05/07/25 22:13 Discontinued 4 mg IVP X1 ONE Oxygen Delivery NOW RT 05/07/25 22:13 Active Vital Signs Vital signs: Vital Signs Temperature 98.8 F 05/07/25 21:24 Pulse Rate 85 05/07/25 21:24 Respiratory Rate 20 05/07/25 21:24 Blood Pressure 154/75 H 05/07/25 21:24 Pulse Oximetry (%) 99 05/07/25 21:24 Oxygen Delivery Method Oxy Mask 05/07/25 21:24 Oxygen Flow Rate 8 05/07/25 21:24 Shortness of Breath / Dyspnea MDM Narrative MDM Narrative:: Scribe Attestation: 05/07/25 - Modesta Fuller am scribing for and in the presence of Dr. Riddle. 64yo female with long-standing history of COPD, substance abuse on methadone, chronic renal insufficiency recently beginning HD within the last week now presenting with ongoing generalized weakness and increasing pain to the RLE in the setting of pre-existing neuropathy. Patient reports multiple falls since she was discharged, but denies any head strikes or loss of consciousness. Please see PE findings. Lab markers demonstrate normal WBC count, chronic anemia, normal platelets, eGFR 56, UA is dilute without evidence of infection, tox screen positive for opiates, benzodiazepines, and marijuana. CXR shows mild fluid overload. Treated with nebulizer therapy and low dose narcotic analgesic with [id number] relief. Given patient's debilitated status and recent frequent falling, will consider short term placement and consult nephrology as patient may no longer require dialysis. Dx: generalized weakness, frequent falls in the elderly, resolving renal failure Patient data External records reviewed:: [facility] previous records (Per chart review, patient was seen here on 05/05/25 for dyspnea.) and EMS form Clinical information provided by:: patient Social determinants that could affect healthcare access:: substance use Patient has the following chronic illnesses:: COPD on 2-3 L home oxygen, substance use disorder (methamphetamine and heroin) currently on methadone, aFib on Eliquis, HTN, chronic renal insufficiency on HD How is presenting disease/condition affected by chronic disease/condition?: exacerbated by Evaluation data The following diagnostics were reviewed and interpreted by me:: lab results, radiology exam(s) and EKG tracing(s) Lab and/or radiology exams considered but not ordered:: none Interpretation Summary: EKG done at 2132, NSR, rate of 88, no acute pathological ST segment changes, no ectopy, normal intervals, left axis deviation, according to my interpretation. [place] [facility] Report Signed Patient: DISHA ABRAHAM [facility]. Record#: [id number] Birthdate: 1960 Age/Sex: 64 / F Location: [facility] Attending Dr: Ordering Physician: Adi Thomas DO Date of Service: 05/07/25 Procedure(s): XR chest 1V portable Accession Number(s): [id number] cc: Adi Thomas DO; Apolinar Tai MD; Acosta Kumari MD~ Examination: AP chest single view TECHNIQUE: AP portable semiupright chest single view Date and time: May 07, 2025 10:21 PM, comparison May 05, 2025 FINDINGS: Normal heart size. Lungs are clear. Right internal jugular dialysis catheter tip SVC Mild vascular congestion. No pneumonia or pulmonary edema IMPRESSION: Mild vascular congestion Dictated By: Acosta Kumari MD Signed By: <Electronically signed by Acosta Kumari MD in [place] 05/07/25 [id number] [place] Report Signed Patient: DISHA ABRAHAM. Record#: [id number] Birthdate: 1960 Age/Sex: 64 / F Location: [facility] Attending Dr: Ordering Physician: Adi Thomas DO Date of Service: 05/07/25 Procedure(s): XR hip RT w pelvis 2-3V Accession Number(s): [id number] cc: Adi Thomas DO; Apolinar Tai MD; Acosta Kumari MD~ Examination:Right hip AP, lateral, AP pelvis 3 views Technique: Hip AP lateral, AP pelvis, 3 views Exam date and time:May 07, 2025, 10:18 PM INDICATIONS: Multiple follows this week with injury of the right hip, right hip pain. FINDINGS: Prominent osteopenia No right hip fracture or dislocation No left hip or pelvic fracture IMPRESSION: No acute hip or pelvic fracture Recommend short-term follow-up AP pelvis as clinically warranted, given the osteopenia. Dictated By: Acosta Kumari MD Signed By: <Electronically signed by Acosta Kumari MD in [place]> 05/07/252305 Medications / Prescriptions Medications or Prescriptions considered but not ordered:: none Medication administrations:: Medication Administration History Discontinued Medications Morphine Sulfate (Morphine Sulf Inj 10 Mg/Ml Vial) 2 mg IVP X1 ONE Stop: 05/07/25 22:14 Last Admin: 05/07/25 22:37 Dose: 2 mg Documented By: WO Ondansetron HCl (Ondansetron Inj 2 Mg/Ml Inj 2 Ml) 4 mg IVP X1 ONE; Protocol Stop: 05/07/25 22:14 Last Admin: 05/07/25 22:37 Dose: 4 mg Documented By: WO see above Consultations Consultation(s) initiated? (list below): No Diagnosis Shortness of Breath Differential Diagnosis: acute exacerbation of chronic obstructive airways disease, congestive heart failure and community acquired pneumonia Most likely diagnosis given after review of the tests above:: generalized weakness, frequent falls in the elderly, resolving renal failure Admission Indicated Admission indicated?: not indicated Admission Request Was there a request for admission?: No Disposition Plan Disposition Plan: other (specify) (Signed out to Dr. Carver at 6 AM.) Discharge Plan Prescriptions/Referrals Prescriptions/Med Rec: No Action albuterol sulfate 90 mcg/actuation HFA aerosol inhaler 1 puff inhalation QID PRN (Reason: shortness of breath or wheezing) Qty: 8.5 0RF aspirin 81 mg tablet,delayed release (DR/EC) 81 mg PO QDAY Qty: 30 0RF lactulose 10 gram/15 mL solution 10 g PO QDAY PRN (Reason: constipation) Qty: 3785 0RF lidocaine 5 % adhesive patch,medicated 1 patch topical QDAY Qty: 30 0RF Rx Instructions: leave on most painful area for up to 12 hrs ipratropium-albuterol 0.5 mg-3 mg(2.5 mg base)/3 mL solution for nebulization 3 ml inhalation Q8H PRN (Reason: shortness of breath) Qty: 90 0RF ondansetron 4 mg tablet,disintegrating 4 mg PO Q8H PRN (Reason: nausea and vomiting) Qty: 10 0RF meclizine 50 mg tablet 50 mg PO BID PRN (Reason: dizziness or vertigo) Qty: 10 0RF Proair Digihaler 90 mcg/actuation aero powdr breath act w/sensor 2 inh inhalation Q6H PRN (Reason: shortness of breath or wheezing) Qty: 1 0RF Eliquis 5 mg tablet 5 mg PO Q12H Patient Comments: TAKE ONE TABLET BY MOUTH TWICE DAILY FOR THE HEART insulin glargine [Basaglar KwikPen U-100 Insulin] 100 unit/mL (3 mL) insulin pen 26 unit subcut QAM furosemide [Lasix] 20 mg tablet 20 mg PO QAM 30 Days Qty: 30 0RF hydralazine 100 mg tablet 100 mg PO TID loratadine [Allergy Relief (loratadine)] 10 mg tablet 10 mg PO QDAY Patient Comments: TAKE ONE TABLET BY MOUTH EVERY DAY FOR ALLERGY Trelegy Ellipta 200-62.5-25 mcg blister with device 1 inh inhalation QDAY Qty: 60 1RF (DME) FreeStyle Dante 3 Sensor Device See Rx Instructions .Route Qty: 1 3RF Rx Instructions: As directed (DME) FreeStyle Dante 3 Hewitt Misc See Rx Instructions .Route Qty: 1 0RF Rx Instructions: As directed prednisone 5 mg Tablet See Taper PO QDAY Qty: 41 0RF Taper: Prednisone Taper 15 mg DAILY for 5 Days and 0 Hour 10 mg DAILY for 7 Days and 0 Hour 5 mg DAILY for 7 Days and 0 Hour 2.5 mg DAILY for 7 Days and 0 Hour nicotine 21 mg/24 hr Patch 24 Hour 21 mg top QDAY 10 Days Qty: 10 0RF sennosides [Senna Lax] 8.6 mg Tablet 8.6 mg PO QDAY PRN (Reason: constipation) Qty: 30 0RF insulin lispro [Admelog SoloStar U-100 Insulin] 100 unit/mL insulin pen See Protocol subcut USEASDIRECTD Qty: 15 0RF Protocol: Insulin Corrective High-Dose Regimen Condition: Fingerstick Blood Glucose Dose/Route: Insulin Units Condition: 141-180 mg/dl Dose/Route: 6 units/SQ Condition: 181-220 mg/dl Dose/Route: 8 units/SQ Condition: 221-260 mg/dl Dose/Route: 10 units/SQ Condition: 261-300 mg/dl Dose/Route: 12 units/SQ Condition: 301-350 mg/dl Dose/Route: 14 units/SQ Condition: 351-400 mg/dl Dose/Route: 16 units/SQ Condition: greater than 400 mg/dl Dose/Route: 18 units/SQ diltiazem HCl 180 mg capsule,extended release 24hr 180 mg PO QDAY Qty: 30 3RF methadone 10 mg Tablet 75 mg PO QDAY Qty: 0 0RF Veltassa 8.4 gram powder in packet 8.4 g PO QDAY 14 Days Qty: 4 0RF Referrals: Apolinar Tai MD [Primary Care Provider] - In 1 week Problem List Clinical Impression: Generalized weakness, Frequent falls Patient/Caregiver Discharge Instructions Print Language: Comoran
[2025-05-07 22:13] VITALS: PULSE 97; RESP 12; O2SAT 98
--- NOTE | 2025-05-07 22:13 | XR_ITS ---
Examination: AP chest single view TECHNIQUE: AP portable semiupright chest single view Date and time: May 07, 2025 10:21 PM, comparison May 05, 2025 FINDINGS: Normal heart size. Lungs are clear. Right internal jugular dialysis catheter tip SVC Mild vascular congestion. No pneumonia or pulmonary edema IMPRESSION: Mild vascular congestion
--- NOTE | 2025-05-07 22:15 | XR_ITS ---
Examination:Right hip AP, lateral, AP pelvis 3 views Technique: Hip AP lateral, AP pelvis, 3 views Exam date and time:May 07, 2025, 10:18 PM INDICATIONS: Multiple follows this week with injury of the right hip, right hip pain. FINDINGS: Prominent osteopenia No right hip fracture or dislocation No left hip or pelvic fracture IMPRESSION: No acute hip or pelvic fracture Recommend short-term follow-up AP pelvis as clinically warranted, given the osteopenia.
[2025-05-07 22:24] VITALS: PULSE 97
[2025-05-07 22:25] VITALS: BP 140/75; PULSE 84; RESP 14; TEMP 36.9; O2SAT 100
[2025-05-07] MEDS: ONDANSETRON INJ 2 MG/ML INJ 2 ML 4 MG IVP (22:37)
[2025-05-07] MEDS: MORPHINE SULF INJ 10 MG/ML VIAL 2 MG IVP (22:37)
[2025-05-07 22:39] LABS: Basophils # (Auto) 0.0 Thou/mm3 (0.0-0.2); Basophils % (Auto) 0 % (0-2.5); Eosinophils # (Auto) 0.2 Thou/mm3 (0.0-0.5); Eosinophils % (Auto) 3 % (0-10); Hematocrit 30.9 % (36.0-46.0); Hemoglobin 9.6 g/dL (12.0-16.0); Immature Granulocytes Auto 0.10 Thou/mm3 (0.00-0.00); Lymphocytes # (Auto) 2.2 Thou/mm3 (1.0-4.8); Lymphocytes % (Auto) 23 % (10-50); Mean Corpuscular HGB Conc 31.1 g/dl (31.0-37.0); Mean Corpuscular Hemoglobin 25.9 pg (25.0-35.0); Mean Corpuscular Volume 83 fL (80-100); Monocytes # (Auto) 0.7 Thou/mm3 (0.0-0.8); Monocytes % (Auto) 7 % (0-12); Neutrophils # (Auto) 6.1 Thou/mm3 (1.8-7.7); Neutrophils % (Auto) 66 % (37-80); Nucleated Red Blood Cell # 0.00 Thou/mm3 (0.00-0.00); Nucleated Red Blood Cell % 0 /100 WBC (0); Platelet Count 152 Thou/mm3 (140-440); RDW Standard Deviation 48.5 fL (36.4-46.3); Red Blood Count 3.71 Miln/mm3 (4.00-5.20); White Blood Count 9.3 Thou/mm3 (3.6-11.0)
[2025-05-07 23:11] VITALS: BP 140/70; PULSE 71; RESP 17; TEMP 36.8; O2SAT 97
[2025-05-07 23:32] LABS: B-Type Natriuretic Peptide 60 pg/mL (0-100)
[2025-05-08 00:11] LABS: Alanine Aminotransferase 39 U/L (10-49); Albumin, Serum 3.5 gm/dL (3.4-4.8); Albumin/Globulin Ratio 1.8 (1.2-2.2); Alkaline Phosphatase 64 U/L (46-116); Anion Gap 9 (7-16); Aspartate Amino Transferase 23 U/L (0-34); BUN/Creatinine Ratio 15 Ratio (12-20); Bilirubin,Total 0.7 mg/dL (0.3-1.2); Blood Urea Nitrogen 17 mg/dL (9-23); Calcium 9.2 mg/dL (8.3-10.6); Calcium (Corrected) 9.6 mg/dL (8.5-10.1); Carbon Dioxide 26.6 mMol/L (20.0-31.0); Chloride 107 mMol/L (98-107); Creatinine (Component) 1.1 mg/dL (0.6-1.3); Estimated Creatinine Clearance 52.6 mL/min (>60); Globulin 1.9 gm/dL (2.3-3.5); Magnesium 1.9 mg/dL (1.6-2.6); Potassium 3.9 mMol/L (3.4-5.1); Sodium 143 mMol/L (136-145); Total Protein 5.4 gm/dL (5.7-8.2); Troponin I < 0.020 ng/mL (0.0-0.045); eGFR 56 See Note
[2025-05-08 00:21] LABS: Glucose 77 mg/dL (74-106); Osmolality,Calculated 285 (275-295)
[2025-05-08 02:21] LABS: Collection Type, Urine Clean Catch
[2025-05-08 02:26] LABS: Bilirubin,Urine Negative (Negative); Blood,Urine 1+ (Negative); Clarity,Urine Clear (Clear/Hazy); Color,Urine Lt-Yellow (Lt Yel-Yel); Glucose, Urine Negative (Negative); Ketones,Urine Negative (Negative); Leukocyte Esterase,Urine Negative (Negative); Nitrite,Urine Negative (Negative); PH,Urine 5.5 (5.0-7.0); Protein,Urine Trace (Neg - Trace); RBC,Urine 64 /hpf (0-3); Specific Gravity,Urine 1.009 (1.001-1.035); Squamous Epithelial Cell,Urine < 1 /hpf (0-5); Urobilinogen,Urine Negative mg/dL (0.0-1.0); WBC,Urine 2 /hpf (0-5)
[2025-05-08 02:38] LABS: Amphetamine/Methamp Scrn,U Negative (Negative); Barbiturate Screen,Urine Negative (Negative); Benzodiazepines Screen,Urine Positive (Negative); Benzoylecgonine Screen, Ur Negative (Negative); Fentanyl Screen,Urine Negative (Negative); Opiate Screen,Urine Positive (Negative); THC Screen,Urine Positive (Negative)
[2025-05-08 03:00] VITALS: BP 143/75; PULSE 77; RESP 13; TEMP 36.9; O2SAT 98
[2025-05-08 05:00] VITALS: BP 144/80; PULSE 75; RESP 12; TEMP 36.8; O2SAT 97
[2025-05-08 07:00] VITALS: PULSE 69
--- NOTE | 2025-05-08 07:02 | PD.EDADDENDU ---
Emergency Room Addendum <Anju Rivera - Last Filed: 05/08/25 09:07> Addendum Narrative: 0600: Care assumed from Dr. Thomas, the previous shift emergency physician. Past medical, surgical, social and family history reviewed. Vitals and home medications reviewed. I will assume the care of the patient at this time, pending social media content specialist consultation for SNF placement. Please refer to the emergency department record for history and examination from initial visit.?The following addendum documentation note is intended to reflect any pending information, findings, or radiology results not included in the patient?s initial chart. 0845h: RN reports the patient is requesting Methadone and to be discharged home. States she would follow up with the nursing home on an outpatient basis. <Niki Carver MD - Last Filed: 05/08/25 09:09> Addendum Narrative: 0600: Care assumed from Dr. Thomas, the previous shift emergency physician. Past medical, surgical, social and family history reviewed. Vitals and home medications reviewed. I will assume the care of the patient at this time, pending social media content specialist consultation for SNF placement. Please refer to the emergency department record for history and examination from initial visit.?The following addendum documentation note is intended to reflect any pending information, findings, or radiology results not included in the patient?s initial chart. 0845h: RN reports the patient is to be discharged home as she has to go get her methadone and wants to go to her morning dialysis. States she would follow up with the nursing home on an outpatient basis. Patient was given a refill prescription for her Contour test strips and given a prescription for a sensor reader for her candy 3 that she has. Was instructed on how to apply the sensor in ED.
[2025-05-08 08:00] VITALS: BP 159/75; PULSE 69; RESP 14; RESP 92; TEMP 36.7; O2SAT 94; O2SAT 95
--- NOTE | 2025-05-08 09:15 | PC.PT ---
Per RN and SW, patient is now discharging home. PT eval no longer required for SNF auth. Will cancel PT eval.
[2025-05-08 09:38] VITALS: BP 145/65; PULSE 75; RESP 16; TEMP 36.8; O2SAT 96
== END 2025-05-08 09:41 | disposition home or self-care (01) ==
PROVIDERS: Emergency Provider Emergency Medicine; PCP Family Medicine
DX: R53.1 Weakness (principal); R29.6 Repeated falls; R09.89 Other specified symptoms and signs involving the circulatory and respiratory systems; J44.9 Chronic obstructive pulmonary disease, unspecified; N18.9 Chronic kidney disease, unspecified
CPT/HCPCS: 51701; 36415; 71045; 73502; 80053; 80307; 81001; 83735; 83880; 84484; 85025; 93005; 96374; 96375; 99284; J2270; J2405

== ENCOUNTER 2025-05-09 09:26 | Emergency (ER) | payer MEDICAID, SELFPAY ==
[2025-05-09 09:42] VITALS: BP 173/77; PULSE 102; RESP 18; TEMP 36.7; O2SAT 97; BMI 27.9
--- NOTE | 2025-05-09 09:51 | PD.EDRME ---
Rapid Medical Screening Exam RME Arrival date/time: 05/09/25 09:26 64-year-old female presents to the emergency department today stating that she would like to be placed in rehab facility patient was evaluated yesterday and was instructed to return for the patient for placement Chief Complaint: Fall Time Seen by Provider: 05/09/25 09:42 Vital signs: Vital Signs Temperature 98.1 F 05/09/25 09:42 Pulse Rate 102 H 05/09/25 09:42 Respiratory Rate 18 05/09/25 09:42 Blood Pressure 173/77 H 05/09/25 09:42 Pulse Oximetry (%) 97 05/09/25 09:42 Oxygen Delivery Method Nasal Cannula 05/09/25 09:42 Oxygen Flow Rate 2 05/09/25 09:42
--- NOTE | 2025-05-09 10:46 | PC.PT ---
PT eval complete. Please see evaluation for further details.
--- NOTE | 2025-05-09 11:03 | PC.CC ---
Addendum entered by Sadie Naylor 05/09/25 15:40: Ale reports she obtained auth for the patient. Patient reports she has her own transportation. Sadie FALL made charge loader Marion aware that report needed to be given for patient to [facility]. Original Note: Sadie FALL was consulted regarding SNF placement for the patient. POUNDMASTER, met with the patient face to face introduced self, role, and reason for visit. Patient appeared alert and oriented to self, location, and situation. Patient reports she needs to go to a SNF because she has had multiple falls and has generalized weakness. POUNDMASTER explained the process to patient of needing a PT eval for placement. Per patient, she would like to go to [facility] and reports they have a bed available for her. POUNDMASTER made telephone contact with Ale at [facility] and reports she does have a bed available for patient. POUNDMASTER completed PASSR. POUNDMASTER submitted packet via [employer] to [facility]. Ale will be starting auth.
--- NOTE | 2025-05-09 12:00 | EDNOTE_ITS ---
ED Fall Injury RME/HPI General Chief Complaint: Fall Stated Complaint: Fall, can't walk, on home O2 Time Seen by Provider: 05/09/25 09:42 Arrival date/time: 05/09/25 09:26 RME / HPI RME / HPI Narrative: 64-year-old female patient who is known to us with significant past medical history of COPD, oxygen dependent, ESRD, last hemodialysis yesterday, frequent falls, came in for evaluation asking for help due to inability to take care of h erself. Patient told me that she keep coming to the emergency room due to frequent falls and nobody can take care of her anymore. She lives with friend. She wanted to go to longterm. Also complained of worsening shortness of breath. Asking for a breathing treatment on my initial evaluation. Related Data Home Medications ?Medication ?Instructions ?Recorded ?Confirmed apixaban 5 mg tablet (Eliquis) 5 mg PO Q12H 01/02/25 0 04/21/25 insulin glargine 100 unit/mL (3 26 unit subcut QAM 07/2004/21/25 mL) subcutaneous pen (Basaglar KwikPen U-100 Insulin) hydralazine 100 mg tablet 100 mg PO TID 04/04/2504/21 loratadine 10 mg tablet (Allergy 10 mg PO QDAY 5 04/21/25 Relief (loratadine)) Previous Rx's ?Medication ?Instructions ?Recorded albuterol sulfate 90 mcg/actuation 1 puff inhalation Q ID PRN 08/06/24 aerosol inhaler shortness of breath or wheez ing #8.5 grams aspirin 81 mg tablet,delayed 81 mg PO QDAY #30 tabs release lactulose 10 gram/15 mL oral 10 g (15 mL) PO QDAY PRN 08/06/24 solution constipation #3,785 mL lidocaine 5 % topical patch 1 patch topical QDAY #30 e a 08/06/24 meclizine 50 mg tablet 50 mg PO BID PRN dizziness o r 10/27/24 vertigo #10 tabs ondansetron 4 mg disintegrating 4 mg PO Q8H PRN nausea and 10/27/24 tablet vomiting #10 tabs albuterol sulfate 90 mcg/actuation 2 inh inhalation Q6 H PRN shortness 11/01/24 breath activated powder of breath or wheezing #1 ea inhaler,sensor (Proair Digihaler) furosemide 20 mg tablet (Lasix) 20 mg PO QAM 30 days # 30 tabs 01/08/25 fluticasone fur. 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4 g PO QDAY 2 weeks # 4 ea 05/03/25 gram oral powder packet (Veltassa) blood sugar diagnostic (Contour #50 ea 05/08/25 Test Strips) 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,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,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 #1 ea 05/08/25 (FreeStyle Dante 3 [place]) Allergies Allergy/AdvReac Type Severity Reaction Status Date / Time codeine Allergy Severe RASH Verified 05/09/25 09:33 diphenhydramine HCl Allergy Severe Hives Verified 05/09/25 09:33 egg Allergy Severe Rash Verified 05/09/25 09:33 Penicillins Allergy Severe SWELLING, Verified 05/09/25 09:33 RESP DISTRESS pentazocine (From [place]) Allergy Severe Hives Verified 05/09/25 09:33 Review of Systems Review of Systems Narrative Review of Systems: Review of system reviewed and within normal limits except mentioned in HPI ED Exam Narrative Physical exam: VITAL SIGNS: Reviewed. GENERAL APPEARANCE: Alert and interactive, follows commands, no acute distress, fragile elderly HEAD AND FACE: Non-traumatic. ENT: PERRL, pink conjunctivitis, eyelid no trauma, Mucous membrane moist. NECK: Supple, nontender, no nuchal rigidity. CHEST: No tenderness, no crepitus, no paradoxical movement, no retractions. LUNGS: Clear, well ventilated, symmetric, no rales, no wheezing, no ronchi, no stridor, decreased breath sounds bilaterally. HEART: Regular rate, regular rhythm, no murmur, no gallops. ABDOMEN: Soft, positive bowel sounds, nondistended, no guarding, nontender, no rebound, no masses, RECTAL: Deferred. GENITAL: Deferred. NEUROLOGICAL: Gross motor function intact sensory function intact, Appropriate for age. MUSCULOSKELETAL: low back nontender, full range of motion. EXTREMITIES: Nontender, full range of motion. SKIN: Color pink, dry, no rash, no lacerations, no abrasions, no contusions. LYMPHATICS: Deferred. 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 09:51 Active Referral Physical Therapy Stat Cons 05/09/25 09:51 Completed Levalbuterol Rt [Xopenex Rt Blanca] Med 05/09/25 12:03 Discontinued 1.25 mg INH X1 ONE Sodium Chloride Rt Blanca 0.9% [NS Rt Blanca 0.9%] Med 05/09/25 12:03 Active 3 ml INH PRN PRN Vital Signs Vital signs: Vital Signs Temperature 98.1 F 05/09/25 09:42 Pulse Rate 102 H 05/09/25 09:42 Respiratory Rate 18 05/09/25 09:42 Blood Pressure 173/77 H 05/09/25 09:42 Pulse Oximetry (%) 97 05/09/25 09:42 Oxygen Delivery Method Nasal Cannula 05/09/25 09:42 Oxygen Flow Rate 2 05/09/25 09:42 Fall MDM Narrative MDM Narrative:: 64-year-old female patient who is known to us with significant past medical history of COPD, oxygen dependent, ESRD, last hemodialysis yesterday, frequent falls, came in for evaluation asking for help due to inability to take care of herself. Patient told me that she keep coming to the emergency room due to frequent falls and nobody can take care of her anymore. She lives with friend. She wanted to go to longterm. Also complained of worsening shortness of breath. Asking for a breathing treatment on my initial evaluation. Patient was already seen by physical therapy, and recommendation is to go to longterm. Patient was given Xopenex breathing treatment. Patient is already accepted to longterm. Pending authorization. Patient got approved to go to longterm Patient data External records reviewed:: [facility] previous records Clinical information provided by:: patient Social determinants that could affect healthcare access:: none Patient has the following chronic illnesses:: COPD, diabetes mellitus, hypertension How is presenting disease/condition affected by chronic disease/condition?: exacerbated by Evaluation data The following diagnostics were reviewed and interpreted by me:: other (specify) Lab and/or radiology exams considered but not ordered:: None Interpretation Summary: None Medications / Prescriptions Medications or Prescriptions considered but not ordered:: None Medication administrations:: Medication Administration History Sodium Chloride (Sodium Chloride Rt Blanca 0.9% 3 Ml Nebu) 3 ml INH PRN PRN PRN Reason: SOLN Stop: 06/08/25 12:02 Last Admin: 05/09/25 12:42 Dose: 3 ml Documented By: DM Discontinued Medications Levalbuterol HCl (Levalbuterol Rt 1.25 Mg/0.5 Ml Nebu) 1.25 mg INH X1 ONE Stop: 05/09/25 12:04 Last Admin: 05/09/25 12:42 Dose: 1.25 mg Documented By: DM Xopenex Consultations Consultation(s) initiated? (list below): No Diagnosis Fall Differential Diagnosis: concussion with loss of consciousness (Frequent falls, generalized weakness, COPD, failure to thrive) Most likely diagnosis given after review of the tests above:: COPD, frequent falls generalized weakness Admission Indicated Admission indicated?: indicated Explain why admission is indicated or not indicated:: senior living Admission Request Was there a request for admission?: No Disposition Plan Disposition Plan: other (specify) (senior living) Discharge Plan Plan Patient Disposition: Xfer Skilled Nsg Fac (SNF) Discharge Disposition comment: Stable Prescriptions/Referrals Prescriptions/Med Rec: No Action albuterol sulfate 90 mcg/actuation HFA aerosol inhaler 1 puff inhalation QID PRN (Reason: shortness of breath or wheezing) Qty: 8.5 0RF aspirin 81 mg tablet,delayed release (DR/EC) 81 mg PO QDAY Qty: 30 0RF lactulose 10 gram/15 mL solution 10 g PO QDAY PRN (Reason: constipation) Qty: 3785 0RF lidocaine 5 % adhesive patch,medicated 1 patch topical QDAY Qty: 30 0RF Rx Instructions: leave on most painful area for up to 12 hrs ipratropium-albuterol 0.5 mg-3 mg(2.5 mg base)/3 mL solution for nebulization 3 ml inhalation Q8H PRN (Reason: shortness of breath) Qty: 90 0RF (DME) FreeStyle Dante 3 [place] Misc See Rx Instructions .Route Qty: 1 0RF Rx Instructions: As directed (DME) Contour Test Strips Strip See Rx Instructions .Route Qty: 50 0RF Rx Instructions: Use 3 times daily ondansetron 4 mg tablet,disintegrating 4 mg PO Q8H PRN (Reason: nausea and vomiting) Qty: 10 0RF meclizine 50 mg tablet 50 mg PO BID PRN (Reason: dizziness or vertigo) Qty: 10 0RF Proair Digihaler 90 mcg/actuation aero powdr breath act w/sensor 2 inh inhalation Q6H PRN (Reason: shortness of breath or wheezing) Qty: 1 0RF Eliquis 5 mg tablet 5 mg PO Q12H Patient Comments: TAKE ONE TABLET BY MOUTH TWICE DAILY FOR THE HEART insulin glargine [Basaglar KwikPen U-100 Insulin] 100 unit/mL (3 mL) insulin p en 26 unit subcut QAM furosemide [Lasix] 20 mg tablet 20 mg PO QAM 30 Days Qty: 30 0RF hydralazine 100 mg tablet 100 mg PO TID loratadine [Allergy Relief (loratadine)] 10 mg tablet 10 mg PO QDAY Patient Comments: TAKE ONE TABLET BY MOUTH EVERY DAY FOR ALLERGY Trelegy Ellipta 200-62.5-25 mcg blister with device 1 inh inhalation QDAY Qty: 60 1RF (DME) FreeStyle Dante 3 Sensor Device See Rx Instructions .Route Qty: 1 3RF Rx Instructions: As directed (DME) FreeStyle Dante 3 [place] Misc See Rx Instructions .Route Qty: 1 0RF Rx Instructions: As directed prednisone 5 mg Tablet See Taper PO QDAY Qty: 41 0RF Taper: Prednisone Taper 15 mg DAILY for 5 Days and 0 Hour 10 mg DAILY for 7 Days and 0 Hour 5 mg DAILY for 7 Days and 0 Hour 2.5 mg DAILY for 7 Days and 0 Hour nicotine 21 mg/24 hr Patch 24 Hour 21 mg top QDAY 10 Days Qty: 10 0RF sennosides [Senna Lax] 8.6 mg Tablet 8.6 mg PO QDAY PRN (Reason: constipation) Qty: 30 0RF insulin lispro [Admelog SoloStar U-100 Insulin] 100 unit/mL insulin pen See Protocol subcut USEASDIRECTD Qty: 15 0RF Protocol: Insulin Corrective High-Dose Regimen Condition: Fingerstick Blood Glucose Dose/Route: Insulin Units Condition: 141-180 mg/dl Dose/Route: 6 units/SQ Condition: 181-220 mg/dl Dose/Route: 8 units/SQ Condition: 221-260 mg/dl Dose/Route: 10 units/SQ Condition: 261-300 mg/dl Dose/Route: 12 units/SQ Condition: 301-350 mg/dl Dose/Route: 14 units/SQ Condition: 351-400 mg/dl Dose/Route: 16 units/SQ Condition: greater than 400 mg/dl Dose/Route: 18 units/SQ diltiazem HCl 180 mg capsule,extended release 24hr 180 mg PO QDAY Qty: 30 3RF methadone 10 mg Tablet 75 mg PO QDAY Qty: 0 0RF Veltassa 8.4 gram powder in packet 8.4 g PO QDAY 14 Days Qty: 4 0RF Referrals: No Primary/Family,Physician [Primary Care Provider] - In 1 week Problem List Clinical Impression: COPD (chronic obstructive pulmonary disease), Weakness generalized, Frequent falls Patient/Caregiver Discharge Instructions Education Materials: COPD: Coping with Fatigue Additional Instructions: Thank you for the opportunity for serving you today. You are stable for discharged to SNF. You are advised to: Follow-up with your PCP in 1 to 2 days Return to ED for worsening of symptoms Continue taking your COPD medications Print Language: Vietnamese Stand Alone Forms: Kaylynn Award Info., Patient Portal Info Letter PA/A AND P TECHNICIAN Supervising Physician PA/A AND P TECHNICIAN Supervising Physician: MD Mehul
[2025-05-09] MEDS: LEVALBUTEROL RT 1.25 MG/0.5 ML NEBU INH (12:42)
[2025-05-09] MEDS: SODIUM CHLORIDE RT SOL 0.9% 3 ML NEBU INH (12:42)
[2025-05-09 12:45] VITALS: PULSE 88; RESP 18; O2SAT 100
[2025-05-09 15:50] VITALS: BP 169/81; PULSE 80; RESP 18; TEMP 37.1; O2SAT 95
--- NOTE | 2025-05-09 16:07 | PC.NURSE ---
Report called to [facility] @[id number], spoke with nurse Kelly receiving patient.
== END 2025-05-09 16:16 | disposition skilled nursing facility (03) ==
PROVIDERS: Emergency Provider Family Medicine
DX: J44.9 Chronic obstructive pulmonary disease, unspecified (principal); R53.1 Weakness; R29.6 Repeated falls; Z99.81 Dependence on supplemental oxygen; N18.6 End stage renal disease; Z99.2 Dependence on renal dialysis
CPT/HCPCS: 94640; 99283

== ENCOUNTER 2025-06-23 22:09 | Emergency (ER) | payer MEDICAID, SELFPAY ==
[2025-06-23 22:11] VITALS: BP 162/76; PULSE 76; RESP 20; TEMP 37.6; O2SAT 92
--- NOTE | 2025-06-23 22:19 | XR_ITS ---
Examination: AP chest single view Technique one AP portable upright chest single view Date and time: June 23, 2025, 11:12 PM Indications: Sepsis protocol Findings: Right infrahilar and left base pneumonia Normal heart size Right internal jugular dialysis catheter tip satisfactory position SVC Moderate vascular congestion Impression: Bibasilar pneumonia
--- NOTE | 2025-06-23 22:19 | EKG_ITS ---
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
--- NOTE | 2025-06-23 22:21 | PD.EDRME ---
Rapid Medical Screening Exam RME Arrival date/time: 06/23/25 22:09 CC: Fever chills nausea HPI onset at noon today patient is coming from [facility]. She is a dialysis patient dialyzed Tuesday and Tuesday kinesiologist is Dr. Samayoa. Patient has missed dialysis today. EMS report [facility] giving her Tylenol sometime today EMS report tachycardia no tachypnea patient is awake alert and appears uncomfortable. Time Seen by Provider: 06/23/25 22:18 Vital signs: Vital Signs Temperature 99.6 F 06/23/25 22:11 Pulse Rate 76 06/23/25 22:11 Respiratory Rate 20 06/23/25 22:11 Blood Pressure 162/76 H 06/23/25 22:11 Pulse Oximetry (%) 92 L 06/23/25 22:11 Oxygen Delivery Method Nasal Cannula 06/23/25 22:11 Oxygen Flow Rate 2 06/23/25 22:11
[2025-06-23 22:38] VITALS: BP 151/7; PULSE 86; RESP 12; TEMP 37.4; O2SAT 95
[2025-06-23 22:39] VITALS: RESP 19; O2SAT 94
[2025-06-23 22:42] VITALS: PULSE 104; PULSE 86; PULSE 93; RESP 12; RESP 20; O2SAT 93; O2SAT 97; BMI 26.1
[2025-06-23 22:55] VITALS: PULSE 89; RESP 16; O2SAT 94
--- NOTE | 2025-06-23 23:23 | PD.EDFEVER ---
ED Fever RME/HPI General Stated Complaint: HEADACHE, FEVER Time Seen by Provider: 06/23/25 22:18 Arrival date/time: 06/23/25 22:09 RME / HPI RME / HPI Narrative: 06/23/25 22:09 CC: Fever chills nausea HPI onset at noon today patient is coming from [facility]. 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 Samayoa. Patient has missed dialysis today. EMS report [facility] giving her Tylenol sometime today EMS report tachycardia no tachypnea patient is awake alert and appears uncomfortable. DR. MEJIA MAIN ED EVALUATION: Patient with Hx of COPD/CHF and previous PNA presents with ongoing cough, low-grade fever, despite finishing outpatient ABX with mild GARAY. Reports ongoing productive cough with green/brown appearing phlegm. No vomiting, diarrhea, or sob above baseline. No sustained chest pain, lightheadedness, or near syncope. PMH: COPD, CHF, A- Fib ESRD, DM, and Anemia. PSH: Non-contributory. Social: Current tobacco use, denies alcohol and illicit drug abuse. Related Data Home Medications ?Medication ?Instructions ?Recorded ?Confirmed apixaban 5 mg tablet (Eliquis) 5 mg PO Q12H 01/02/25 04/21/25 insulin glargine 100 unit/mL (3 26 unit subcut QAM 01/03/25 04/21/25 mL) subcutaneous pen (Basaglar KwikPen U-100 Insulin) hydralazine 100 mg tablet 100 mg PO TID 04/04/25 04/21/25 loratadine 10 mg tablet (Allergy 10 mg PO QDAY 04/04/25 04/21/25 Relief (loratadine)) Previous Rx's ?Medication ?Instructions ?Recorded albuterol sulfate 90 mcg/actuation 1 puff inhalation QID PRN 08/06/24 aerosol inhaler shortness of breath or wheezing #8.5 grams aspirin 81 mg tablet,delayed 81 mg PO QDAY #30 tabs 08/06/24 release lactulose 10 gram/15 mL oral 10 g (15 mL) PO QDAY PRN 08/06/24 solution constipation #3,785 mL lidocaine 5 % topical patch 1 patch topical QDAY #30 ea 08/06/24 meclizine 50 mg tablet 50 mg PO BID PRN dizziness or 10/27/24 vertigo #10 tabs ondansetron 4 mg disintegrating 4 mg PO Q8H PRN nausea and 10/27/24 tablet vomiting #10 tabs albuterol sulfate 90 mcg/actuation 2 inh inhalation Q6H PRN shortness 11/01/24 breath activated powder of breath or wheezing #1 ea inhaler,sensor (Proair Digihaler) furosemide 20 mg tablet (Lasix) 20 mg PO QAM 30 days #30 tabs 01/08/25 fluticasone fur. 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,bond broker,cont #1 ea 04/25/25 (FreeStyle Dante 3 [place]) prednisone 5 mg tablet See Taper PO QDAY #41 tabs 05/02/25 sennosides 8.6 mg tablet (Senna 8.6 mg PO QDAY PRN constipation 05/02/25 Lax) #30 tabs diltiazem HCl 180 mg 180 mg PO QDAY #30 caps 05/03/25 capsule,extended release 24 hr insulin lispro 100 unit/mL See Protocol subcut USEASDIRECTD 05/03/25 subcutaneous pen (Admelog SoloStar #15 mL U-100 Insulin lispro) methadone 10 mg tablet 75 mg (7.5 x 10 mg) PO QDAY #0 tabs 05/03/25 blood sugar diagnostic (Contour #50 ea 05/08/25 Test Strips) 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,bond broker,cont #1 ea 05/08/25 (FreeStyle Dante 3 [place]) dextromethorphan-guaifenesin 5 10 ml PO Q8H PRN cough #500 mL 06/24/25 mg-100 mg/5 mL oral liquid (Robitussin Cough-Chest Congestion DM) doxycycline monohydrate 100 mg 100 mg PO BID 10 days #20 caps 06/24/25 capsule prednisone 20 mg tablet 40 mg PO BID 5 days #20 tabs 06/24/25 Allergies Allergy/AdvReac Type Severity Reaction Status Date / Time codeine Allergy Severe RASH Verified 05/09/25 09:33 diphenhydramine HCl Allergy Severe Hives Verified 05/09/25 09:33 egg Allergy Severe Rash Verified 05/09/25 09:33 Penicillins Allergy Severe SWELLING, Verified 05/09/25 09:33 RESP DISTRESS pentazocine (From [employer]) Allergy Severe Hives Verified 05/09/25 09:33 Review of Systems Review of Systems Systems Reviewed: All systems reviewed, normal except as documented Past Medical History Past Medical History NEUROLOGIC: Positive Neurological Disorders, Cerebrovascular Accident and Meningitis CARDIAC: Positive Myocardial Infarction, Cardiac Arrhythmia, Atrial Fibrillation, Angina, Coronary Artery Disease, Atherosclerotic Heart Disease, Hypercholesterolemia, Congestive Heart Failure, Cardiomyopathy, Edema and Hypertension RESPIRATORY: Positive Chronic Obstructive Pulmonary Disease (COPD), Asthma, Bronchitis, Emphysema, Pneumonia and Smoking (Smoked from age [age] (1 pack/day), currently does not smoke) GENITOURINARY: Positive Renal Disease and Dialysis MUSCULOSKELETAL: Positive Arthritis and Osteoporosis ENT: Positive Cataracts and Blind ENDOCRINE: Positive Endocrine Disorders and Diabetes Mellitus Type 2 HEMATOLOGIC: Positive Anemia PSYCHO/SOCIAL: Positive Recreational Drug Use, Depression and Anxiety OTHER HISTORY: Positive Shingles, Falls and Blood Transfusions Family History FAMILY HISTORY: Positive Family Cardiac Disorders Surgical History SURGICAL: Positive Thyroidectomy, Eye Surgery, Tonsillectomy, Abdominal Surgery and Bowel Surgery Social History SMOKING STATUS: Current every day smoker SUBSTANCE USE: former substance user, heroin and methamphetamine (Former drug use, states she quit 20 years ago; tested positive for methamphetamine 03/31/2023.) Physical Exam Narrative Physical exam: GEN. APPEARANCE: The patient is alert awake oriented X-3 in no distress, lying down comfortably, appears chronically ill. Patient has good eye contact. Patient is cooperative. VITALS: All vitals were reviewed and the pulse ox is 97% on room air which is normal according to my interpretation. HEENT: Normocephalic, atraumatic. Pupils are equal and reactive. Oral mucosa is moist. Patent Nares NECK: Supple, nontender, no thyromegaly, no meningismus, no JVD, no step offs CHEST: Symmetrical, atraumatic, and with equal expansion , Nontender on palpation no deformity and no crepitus. CARDIOVASCULAR: Mildly tachycardic, no murmur or gallop rub or extra beats. LUNGS: Left basillar rales with diminished breath sounds BL with symmetrical chest rise. No laboring tachypnea or wheezing. No intercostal subcostal retraction. No rhonchi. ABDOMEN: Soft, flat, nontender to palpation, no guarding or rebound tenderness. There are no abnormal masses palpated. Active and normal bowel sounds. EXTREMITIES: Nontender. No overlying erythema, warmth, or induration. Unilateral RLE swelling. No cyanosis. Patient is able to move all 4 extremities well, with full ROM and good CSM. SKIN: Warm and dry, no jaundice or rashes noted. MUSCULOSKELETAL: No lubar or midline bony tenderness. There is no CVA tenderness. No paraspinal muscle spasm or tenderness. NEURO: Patient is VICTORIA x 4, Cranial nerves II through XII grossly intact. There is no focal neurologic deficits noted. GCS is 15, PNS and PROGRAM OR PROJECT ADMINISTRATOR appear grossly intact. PSYCHIATRIC: Patient is in normal mood and affect, cooperative, no SI or HI or hallucinations. ED Exam Narrative Physical exam: See above Course Quality Measures none Orders Category Date Time Status Merchandise For Resale Purchasing Agent STAT Care 06/23/25 22:19 Completed Continuous Pulse Oximetry STAT Care 06/23/25 22:19 Completed EKG (ED ONLY) *Do not use* NOW Care 06/23/25 22:19 Completed In and Out Catheter X1PRN Care 06/23/25 22:19 Completed Insert IV NOW Care 06/23/25 22:19 Completed NPO STAT Care 06/23/25 22:19 Completed Strict Intake and Output Routine Care 06/23/25 22:19 Ordered EKG (ED Only) Stat Exams 06/23/25 22:19 Draft US abdomen limited Stat Exams 06/24/25 01:27 Taken US venous doppler LE RT Stat Exams 06/23/25 23:26 Taken XR chest 1V SEPSIS PROTOCOL Stat Exams 06/23/25 22:19 Completed B-Type Natriuretic Peptide Stat Lab 06/23/25 23:12 Completed Blood Culture (Lab) Stat Lab 06/23/25 23:00 Received CBC Stat Lab 06/23/25 23:12 Completed Comprehensive Metabolic Panel Stat Lab 06/23/25 23:12 Completed LDH (Lactate Dehydrogenase) Stat Lab 06/23/25 23:12 Completed Lactate (Lactic Acid) Stat Lab 06/23/25 23:12 Completed Lipase Stat Lab 06/23/25 23:12 Completed Magnesium Stat Lab 06/23/25 23:12 Completed Partial Thromboplastin Time Stat Lab 06/23/25 23:12 Completed Phosphorous Stat Lab 06/23/25 23:12 Completed Procalcitonin Stat Lab 06/23/25 23:12 Completed Prothrombin Time with INR Stat Lab 06/23/25 23:12 Completed Troponin I Stat Lab 06/23/25 23:12 Completed Acetaminophen Ivpb [Ofirmev Inj] Med 06/23/25 22:20 Discontinued 1,000 mg in 100 ml IV X1 Albuterol/Ipratr Rt Blanca [Duoneb Rt Blanca] Med 06/23/25 23:20 Discontinued 3 ml INH X1 ONE Clindamycin 900Mg Ivpb [Cleocin/D5w Ivpb] 900 mg Med 06/23/25 23:20 Discontinued Pre-Mixed [Pre-mixed Bag] 1 bag IV X1 Dexamethasone Inj [Decadron Inj] 10 mg Med 06/24/25 00:27 Discontinued Sodium Chloride 0.9% [Ns] 100 ml IV X1 Levofloxacin/D5w 500 mg Ivpb [Levaquin Ivpb] Med 06/23/25 23:20 Discontinued 500 mg in 100 ml IV X1 Sodium Chloride 0.9% 250 ml [Ns] 250 ml Med 06/23/25 23:22 Discontinued IV 125 mls/hr Oxygen Delivery NOW RT 06/23/25 22:19 Completed Vital Signs Vital signs: Vital Signs Temperature 99.6 F 06/23/25 22:11 Pulse Rate 76 06/23/25 22:11 Respiratory Rate 20 06/23/25 22:11 Blood Pressure 162/76 H 06/23/25 22:11 Pulse Oximetry (%) 92 L 06/23/25 22:11 Oxygen Delivery Method Nasal Cannula 06/23/25 22:11 Oxygen Flow Rate 2 06/23/25 22:11 Fever MDM Narrative MDM Narrative:: Scribe Attestation: ITigist am scribing for and in the presence of Dr. Mejia. Provider Notation: Although this document has been carefully reviewed, there may still be some phonetic and other typographical errors. These errors are purely grammatical due to imperfections in the software program and should not be construed in any way to compromise the substance of the patient's medical care during this visit. Patient with Hx of COPD/CHF and previous PNA presents with ongoing cough, low-grade fever, despite finishing outpatient ABX with mild GARAY. Reports ongoing productive cough with green/brown appearing phlegm. Please see PE findings. Laboratory markers including CBC and serum chemistries demonstrated mildly elevated WBC of 13.2 and Hematocrit of 35, left shift without bandemia. VBG within normal limits. Serum chemistries demonstrate creatinine of 2.0 with creatinine clearance of 28. UA without evidence of infection. CRX demonstrates right perihillar/left basillar PNA. Patient was initially entered into sepsis protocol, although remained hemodynamically stable. Normal lactic acid, as was calcitonin. Hospitalist was consulted and personally evaluated patient, recommendation included abdominal US results of which are pending. Venous doppler was negative for DVT. Treated with nebulizer and IV steroids. Patient is resting comfortably and will likely discharge home on a second course of ABX, mucolytic/cough suppressant in addition to a short course of steroids. Final diagnosis includes PNA and COPD. Patient data External records reviewed:: [facility] previous records (Reviewed prior ED records from 05/09/25. Patient was seen for COPD (chronic obstructive pulmonary disease).) and EMS form Clinical information provided by:: patient and EMS Social determinants that could affect healthcare access:: none Patient has the following chronic illnesses:: Cardiac Arrhythmia, Atrial Fibrillation, Angina, Coronary Artery Disease, Atherosclerotic Heart Disease, Hypercholesterolemia, Congestive Heart Failure, Cardiomyopathy, Edema, Hypertension, Chronic Obstructive Pulmonary Disease (COPD), Asthma, Bronchitis, Emphysema, Smoking, Renal Disease and Dialysis, Arthritis, Osteoporosis, Cataracts, Blind, Diabetes Mellitus Type 2, Anemia, Recreational Drug Use, Depression and Anxiety How is presenting disease/condition affected by chronic disease/condition?: exacerbated by Evaluation data The following diagnostics were reviewed and interpreted by me:: lab results, radiology exam(s) and EKG tracing(s) (EKG demonstrates ) Lab and/or radiology exams considered but not ordered:: None Interpretation Summary: RADIOLOGY Chest X-Ray: Findings: Right infrahilar and left base pneumonia Normal heart size Right internal jugular dialysis catheter tip satisfactory position SVC Moderate vascular congestion Impression: Bibasilar pneumonia Venous Doppler Study: Findings: Alejandre scale, color flow and spectral Doppler evaluation of the right lower extremity deep veins were performed. The common femoral, superficial femoral and popliteal veins are patent and compressible. Normal respiratory variation and augmentation are noted. The great saphenous vein is patent and compressible at the level of the saphenofemoral junction. The posterior tibial and peroneal veins are patent and compressible. There is no evidence of occlusive or nonocclusive thrombus. Impression: No sonographic evidence of deep venous thrombosis in the right lower extremity. Abdomen US: Pending official radiology report. Medications / Prescriptions Medications or Prescriptions considered but not ordered:: None Medication administrations:: Medication Administration History Discontinued Medications Albuterol/Ipratropium (Albuterol/Ipratropium (Duoneb) Rt Blanca 3 Ml Nebu) 3 ml INH X1 ONE Stop: 06/23/25 23:21 Last Admin: 06/23/25 23:50 Dose: 3 ml Documented By: RENEE Acetaminophen (Ofirmev Inj) 1,000 mg in 100 mls @ 250 mls/hr IV X1 ONE Stop: 06/23/25 22:43 Last Infusion: 06/24/25 01:58 Dose: Infused Documented By: Admin: 06/24/25 01:01 Dose: 250 mls/hr Documented By: ORIN Levofloxacin/Dextrose (Levaquin Ivpb) 500 mg in 100 mls @ 100 mls/hr IV X1 ONE Stop: 06/24/25 00:19 Last Admin: 06/24/25 02:03 Dose: 100 mls/hr Documented By: ORIN Clindamycin Phosphate 900 mg/ (IV Miscellaneous Supplies) 50 mls @ 50 mls/hr IV X1 ONE Stop: 06/24/25 00:19 Last Admin: 06/24/25 01:59 Dose: 50 mls/hr Documented By: ORIN Sodium Chloride (Ns) 250 mls @ 125 mls/hr IV .Q2H ONE Stop: 06/24/25 01:21 Last Admin: 06/24/25 01:02 Dose: 125 mls/hr Documented By: ORIN Dexamethasone Sodium Phosphate (10 mg/ Sodium Chloride) 101 mls @ 101 mls/hr IV X1 ONE Stop: 06/24/25 00:28 Last Infusion: 06/24/25 01:59 Dose: Infused Documented By: Admin: 06/24/25 00:59 Dose: 101 mls/hr Documented By: ORIN See above if any Consultations Consultation(s) initiated? (list below): No Diagnosis Fever Differential Diagnosis: cellulitis, fever of unknown origin, community acquired pneumonia, viral infection, sepsis and influenza Most likely diagnosis given after review of the tests above:: COPD, PNA Admission Indicated Admission indicated?: not indicated Explain why admission is indicated or not indicated:: Patient does not meet admission criteria Admission Request Was there a request for admission?: No Disposition Plan Disposition Plan: Discharge Discharge Attestation Discharge Attestation: The patient and all family members were given an opportunity to ask questions and understood the discharge instructions. Discharge instructions specifically effects, indications for sooner follow up or return to the emergency department, and the expected course of current diagnosis. Patient condition: Stable Discharge Plan Plan Patient Disposition: HOME (Self Care) Discharge Disposition comment: Stable Prescriptions/Referrals Prescriptions/Med Rec: New doxycycline monohydrate 100 mg capsule 100 mg PO BID 10 Days Qty: 20 0RF prednisone 20 mg tablet 40 mg PO BID 5 Days Qty: 20 0RF Taper: Prednisone Taper 40 mg DAILY for 5 Days and 0 Hour dextromethorphan-guaifenesin [Robitussin Cough-Chest Contreras DM] 5-100 mg/5 mL liquid 10 ml PO Q8H PRN (Reason: cough) Qty: 500 0RF No Action albuterol sulfate 90 mcg/actuation HFA aerosol inhaler 1 puff inhalation QID PRN (Reason: shortness of breath or wheezing) Qty: 8.5 0RF aspirin 81 mg tablet,delayed release (DR/EC) 81 mg PO QDAY Qty: 30 0RF lactulose 10 gram/15 mL solution 10 g PO QDAY PRN (Reason: constipation) Qty: 3785 0RF lidocaine 5 % adhesive patch,medicated 1 patch topical QDAY Qty: 30 0RF Rx Instructions: leave on most painful area for up to 12 hrs ipratropium-albuterol 0.5 mg-3 mg(2.5 mg base)/3 mL solution for nebulization 3 ml inhalation Q8H PRN (Reason: shortness of breath) Qty: 90 0RF (DME) FreeStyle Dante 3 [place] Misc See Rx Instructions .Route Qty: 1 0RF Rx Instructions: As directed (DME) Contour Test Strips Strip See Rx Instructions .Route Qty: 50 0RF Rx Instructions: Use 3 times daily ondansetron 4 mg tablet,disintegrating 4 mg PO Q8H PRN (Reason: nausea and vomiting) Qty: 10 0RF meclizine 50 mg tablet 50 mg PO BID PRN (Reason: dizziness or vertigo) Qty: 10 0RF Proair Digihaler 90 mcg/actuation aero powdr breath act w/sensor 2 inh inhalation Q6H PRN (Reason: shortness of breath or wheezing) Qty: 1 0RF Eliquis 5 mg tablet 5 mg PO Q12H Patient Comments: TAKE ONE TABLET BY MOUTH TWICE DAILY FOR THE HEART insulin glargine [Basaglar KwikPen U-100 Insulin] 100 unit/mL (3 mL) insulin pen 26 unit subcut QAM furosemide [Lasix] 20 mg tablet 20 mg PO QAM 30 Days Qty: 30 0RF hydralazine 100 mg tablet 100 mg PO TID loratadine [Allergy Relief (loratadine)] 10 mg tablet 10 mg PO QDAY Patient Comments: TAKE ONE TABLET BY MOUTH EVERY DAY FOR ALLERGY Trelegy Ellipta 200-62.5-25 mcg blister with device 1 inh inhalation QDAY Qty: 60 1RF (DME) FreeStyle Dante 3 Sensor Device See Rx Instructions .Route Qty: 1 3RF Rx Instructions: As directed (DME) FreeStyle Dante 3 [place] Misc See Rx Instructions .Route Qty: 1 0RF Rx Instructions: As directed prednisone 5 mg Tablet See Taper PO QDAY Qty: 41 0RF Taper: Prednisone Taper 15 mg DAILY for 5 Days and 0 Hour 10 mg DAILY for 7 Days and 0 Hour 5 mg DAILY for 7 Days and 0 Hour 2.5 mg DAILY for 7 Days and 0 Hour sennosides [Senna Lax] 8.6 mg Tablet 8.6 mg PO QDAY PRN (Reason: constipation) Qty: 30 0RF insulin lispro [Admelog SoloStar U-100 Insulin] 100 unit/mL insulin pen See Protocol subcut USEASDIRECTD Qty: 15 0RF Protocol: Insulin Corrective High-Dose Regimen Condition: Fingerstick Blood Glucose Dose/Route: Insulin Units Condition: 141-180 mg/dl Dose/Route: 6 units/SQ Condition: 181-220 mg/dl Dose/Route: 8 units/SQ Condition: 221-260 mg/dl Dose/Route: 10 units/SQ Condition: 261-300 mg/dl Dose/Route: 12 units/SQ Condition: 301-350 mg/dl Dose/Route: 14 units/SQ Condition: 351-400 mg/dl Dose/Route: 16 units/SQ Condition: greater than 400 mg/dl Dose/Route: 18 units/SQ diltiazem HCl 180 mg capsule,extended release 24hr 180 mg PO QDAY Qty: 30 3RF methadone 10 mg Tablet 75 mg PO QDAY Qty: 0 0RF Referrals: Apolinar Tai MD [Primary Care Provider, Family Practice] - In 1 week Problem List Clinical Impression: Pneumonia, COPD (chronic obstructive pulmonary disease) Patient/Caregiver Discharge Instructions Discharge Activity: activity as tolerated Education Materials: COPD: Coping with Mucus, ED Pneumonia (Adult) Additional Instructions: Use nebulizer every 4 hours while awake. Medications as directed. Follow-up with primary care doctor in 5 to 7 days. Return if worsening. Print Language: Zambian Stand Alone Forms: Kaylynn Award Info., Patient Portal Info Letter
[2025-06-23 23:25] LABS: Lactate (Lactic Acid) 1.6 mMol/L (0.4-2.0)
[2025-06-23 23:26] LABS: Basophils # (Auto) 0.0 Thou/mm3 (0.0-0.2); Basophils % (Auto) 0 % (0-2.5); Eosinophils # (Auto) 0.1 Thou/mm3 (0.0-0.5); Eosinophils % (Auto) 1 % (0-10); Hematocrit 35.0 % (36.0-46.0); Hemoglobin 10.8 g/dL (12.0-16.0); Immature Granulocytes Auto 0.05 Thou/mm3 (0.00-0.00); Lymphocytes # (Auto) 0.5 Thou/mm3 (1.0-4.8); Lymphocytes % (Auto) 4 % (10-50); Mean Corpuscular HGB Conc 30.9 g/dl (31.0-37.0); Mean Corpuscular Hemoglobin 26.3 pg (25.0-35.0); Mean Corpuscular Volume 85 fL (80-100); Monocytes # (Auto) 0.4 Thou/mm3 (0.0-0.8); Monocytes % (Auto) 3 % (0-12); Neutrophils # (Auto) 12.1 Thou/mm3 (1.8-7.7); Neutrophils % (Auto) 92 % (37-80); Nucleated Red Blood Cell # 0.00 Thou/mm3 (0.00-0.00); Nucleated Red Blood Cell % 0 /100 WBC (0); Platelet Count 224 Thou/mm3 (140-440); RDW Standard Deviation 52.5 fL (36.4-46.3); Red Blood Count 4.10 Miln/mm3 (4.00-5.20); White Blood Count 13.2 Thou/mm3 (3.6-11.0)
--- NOTE | 2025-06-23 23:26 | XR_ITS ---
Examination: Duplex scan of the lower extremity, unilateral left Date and time of exam: June 23, 2025, 11:41 PM Indications: Spasms and pain in the right leg months Technique: Duplex scan of the extremity veins using B-mode/grayscale imaging and Doppler spectral analysis and color flow Attention is directed to internal echogenicity, compression and augmentation involving these veins, color flow assessment, spectral analysis Findings: Major deep venous structures in the extremity demonstrate normal course and caliber. There is no evidence of deep vein thrombosis. Normal color flow and spectral analysis Impression: Negative for DVT..
[2025-06-23] MEDS: ALBUTEROL/IPRATROPIUM (Duoneb) RT SOL 3 ML NEBU INH (23:50)
[2025-06-23 23:52] LABS: B-Type Natriuretic Peptide 25 pg/mL (0-100)
[2025-06-23 23:53] LABS: INR 1.0 (0.9-1.3); Partial Thromboplastin Time 21.7 Seconds (22.0-36.0); Prothrombin Time 11.4 Seconds (9.0-12.2)
[2025-06-23 23:55] VITALS: PULSE 58; PULSE 82; RESP 16; RESP 19; O2SAT 96; O2SAT 97
[2025-06-24 00:01] LABS: Alanine Aminotransferase 45 U/L (10-49); Albumin, Serum 3.9 gm/dL (3.4-4.8); Albumin/Globulin Ratio 1.4 (1.2-2.2); Alkaline Phosphatase 52 U/L (46-116); Anion Gap 10 (7-16); Aspartate Amino Transferase 44 U/L (0-34); BUN/Creatinine Ratio 20 Ratio (12-20); Bilirubin,Total 0.3 mg/dL (0.3-1.2); Blood Urea Nitrogen 39 mg/dL (9-23); Calcium 10.6 mg/dL (8.3-10.6); Calcium (Corrected) 10.7 mg/dL (8.5-10.1); Carbon Dioxide 26.4 mMol/L (20.0-31.0); Chloride 104 mMol/L (98-107); Creatinine (Component) 2.0 mg/dL (0.6-1.3); Estimated Creatinine Clearance 28.1 mL/min (>60); Globulin 2.7 gm/dL (2.3-3.5); Glucose 126 mg/dL (74-106); LDH (Lactate Dehydrogenase) 189 U/L (120-246); Lipase 32 U/L (12-53); Magnesium 1.9 mg/dL (1.6-2.6); Osmolality,Calculated 290 (275-295); Phosphorous 3.2 mg/dL (2.4-5.1); Potassium 4.8 mMol/L (3.4-5.1); Procalcitonin 0.14 ng/ml (0.0-0.49); Sodium 140 mMol/L (136-145); Total Protein 6.6 gm/dL (5.7-8.2); Troponin I < 0.002 ng/mL (0.0-0.045); eGFR 27 See Note
--- NOTE | 2025-06-24 00:57 | PRELIM_ITS ---
Right lower extremity venous Doppler ultrasound. June 23, 2025 2341 hours Clinical history: Rule out deep vein thrombosis. Right leg pain. Technique: Duplex scan of the right lower extremity deep venous systems was performed utilizing 2D grayscale imaging, Doppler spectral analysis and color flow Doppler and with compression. Comparison: None. Findings: Alejandre scale, color flow and spectral Doppler evaluation of the right lower extremity deep veins were performed. The common femoral, superficial femoral and popliteal veins are patent and compressible. Normal respiratory variation and augmentation are noted. The great saphenous vein is patent and compressible at the level of the saphenofemoral junction. The posterior tibial and peroneal veins are patent and compressible. There is no evidence of occlusive or nonocclusive thrombus. Impression: No sonographic evidence of deep venous thrombosis in the right lower extremity. Report Electronically Signed By: Ronnie Farr 06/24/2025 12:56:42 AM [EST]
[2025-06-24] MEDS: DEXAMETHASONE INJ 10 MG in SODIUM CHLORIDE 0.9% 100 ML 101 MG IV (00:59)
[2025-06-24] MEDS: ACETAMINOPHEN IVPB 1,000 MG/100 ML VIAL 250 MG IV (01:01)
[2025-06-24] MEDS: SODIUM CHLORIDE 0.9% 250 ML 250 ML 125 ML IV (01:02)
--- NOTE | 2025-06-24 01:27 | XR_ITS ---
Examination: Abdomen sonogram, Limited Date and time of exam: June 24, 2025, 0143 hrs. Indications: Right upper abdominal pain and pressure today Technique: Real-time mendoza scale transabdominal sonographic images of the upper abdomen obtained. Findings: Gallstones. Normal gallbladder wall 0.2 cm Common bile duct 0.6 cm Pancreatic head 2.1 cm Liver 18.9 cm smooth contour no focal liver lesions Normal hepatopedal portal venous flow Patent IVC Impression: Cholelithiasis, negative for cholecystitis Mild to moderate hepatomegaly
[2025-06-24] MEDS: CLINDAMYCIN 900MG IVPB 900 MG in PRE-MIXED 1 BAG 50 MG IV (01:59)
[2025-06-24] MEDS: LEVOFLOXACIN/D5W 500 MG IVPB 500 MG/100 ML BAG 100 MG IV (02:03)
--- NOTE | 2025-06-24 04:14 | PRELIM_ITS ---
Ultrasound Abdomen with Doppler and wave Doppler spectral analysis. June 24, 2025 0143 hours Clinical history: r/o biliary dz Technique: Grayscale and color flow images of the abdomen are provided. Hepatic and portal veins were also imaged with color flow images. Comparison: None available at the time of this report. Findings: The liver demonstrates increased echogenicity. Hepatomegaly. No intrahepatic biliary ductal dilatation. Distended gallbladder. Mild irregular liver margins. Gallstones. Hernandez sign is not available at the time of this report. No gallbladder wall thickening or pericholecystic fluid is demonstrated. The common bile duct is normal in caliber at 0.6 cm. No free fluid is demonstrated on the submitted images. The portal vein is patent with hepatopetal flow and normal wave Doppler spectral analysis. The hepatic veins are patent with normal wave Doppler spectral analysis. The inferior vena cava is patent with normal wave Doppler spectral analysis. Impression: Gallstones without evidence of acute cholecystitis. If acute cholecystitis is still clinically suspected consider correlation with HIDA scan. Hepatomegaly associated with liver steatosis, suspicious for steatohepatitis. Probable cirrhosis. Report Electronically Signed By: Thomas Oquendo 06/24/2025 4:14:00 AM [EST]
--- NOTE | 2025-06-24 04:49 | PC.NURSE ---
Tried to call report to [facility] @ 1811. Call was forwarded to voicemail. Message was left detailing why patient came to hospital for and her diagnosis along with the medications the patient was prescribed. Charge nurse notified. Patient is currently in stable condition and on her 2 l nc which is her baseline.
== END 2025-06-24 05:59 | disposition home or self-care (01) ==
PROVIDERS: Registered Nurse General Practice; Emergency Provider Emergency Medicine; PCP Family Medicine
DX: J44.0 Chronic obstructive pulmonary disease with (acute) lower respiratory infection (principal); J18.9 Pneumonia, unspecified organism; M79.604 Pain in right leg; R10.11 Right upper quadrant pain; R94.31 Abnormal electrocardiogram [ECG] [EKG]; F17.200 Nicotine dependence, unspecified, uncomplicated
CPT/HCPCS: 36415; 71045; 76705; 80053; 81001; 83605; 83615; 83690; 83735; 83880; 84100; 84145; 84484; 85025; 85610; 85730; 87040; 93005; 93971; 94640; 96365; 99285; A9270; J0131; J0736; J1100; J1956; J7050